=== PATIENT | male | born 1960 | race Caucasian/White ===

== ENCOUNTER 2017-10-05 14:43 | Emergency (ER) | payer OTHER ==
[~2017-10-05] VITALS: Ht 175.3 cm; Wt 108.9 kg
[~2017-10-05 14:43] MED LIST: CYCLOBENZAPRINE10 MG PO; HUMALOG100 UNIT/1 SUB-Q; INSULIN SYRING1 EA11 MISC; LANTUS100 UNITS/ SUB-Q; LISINOPRIL-HCT1 EACH PO; MELOXICAM15 MG PO; METFORMIN HCL500 MG PO; OMEPRAZOLE MAGN20 MG PO; PROSCAR5 MG PO; SIMVASTATIN20 MG PO; TRAMADOL HCL50 MG PO
[2017-10-05] MEDS ORDERED: GUAIFENESIN-COD10 ML PO (16:46)
[2017-10-05] MEDS ORDERED: LEVAQUIN500 MG PO (16:46)
[2017-10-05] MEDS ORDERED: TAMIFLU75 MG PO (16:46)
[2017-10-22] MEDS ORDERED: CYCLOBENZAPRINE10 MG PO (11:58)
[2017-10-22] MEDS ORDERED: NEURONTIN300 MG PO (12:01)
== END 2017-10-05 17:00 | disposition home or self-care (01) ==
LOC: ED 14:43
DX: J11.1 Influenza due to unidentified influenza virus with other respiratory manifestations (principal); E11.9 Type 2 diabetes mellitus without complications; I10 Essential (primary) hypertension; Z79.4 Long term (current) use of insulin; Z79.899 Other long term (current) drug therapy
CPT/HCPCS: 71045; 80053; 85025; 87502; 94640; 99283

== ENCOUNTER 2018-05-04 03:32 | Emergency (ER) | payer OTHER ==
[~2018-05-04] VITALS: Ht 175.3 cm; Wt 110.7 kg
--- NOTE | ~2018-05-04 | EKG ---
[facility] [address] [facility] [place], [place] [address] Draft EK completed, results pending confirmation PATIENT NAME: MARIELTRAVISTERESSA WILLIAMSON Electrocardiogram DATE OF : 58 PHYSICIAN: PRELIMINARY REPORT #: [id number] REPORT IS CONFIDENTIAL AND NOT TO BE RELEASED WITHOUT AUTHORIZATION
--- NOTE | ~2018-05-04 | EKG ---
[facility] [address] [facility] [place], [place] [address] Draft EK completed, results pending confirmation PATIENT NAME: MARIELTRAVISTERESSA WILLIAMSON Electrocardiogram DATE OF : 58 PHYSICIAN: PRELIMINARY REPORT #: [id number] REPORT IS CONFIDENTIAL AND NOT TO BE RELEASED WITHOUT AUTHORIZATION
--- OUTSIDE RECORDS SUMMARY | ~2018-05-04 | XMS | Clinical Summary ---
Demographics + + + | Address | [address] | | | [place] [address] | + + + | Home Phone | | + + + | Preferred Language | Unknown | + + + | Marital Status | Single | + + + | Church Affiliation | CHR | + + + | Race | White | + + + | Ethnic Group | Not or | + + + Author + + + | Author | NON REVENUE LOCATIONS | + + + | Organization | NON REVENUE LOCATIONS | + + + | Address | Unknown | + + + | Phone | Unavailable | + + + Support + + +---------+ + | Name | Relationship | Address | Phone | + + +---------+ + | GRETA IRELAND | ECON | Unknown | | + + +---------+ + Care Team Providers + +------+ + | Care Dental Specialist Name | Role | Phone | + +------+ + | Chery Carrion PA-C | PP | | + +------+ + Source Comments ADDY is fully live on both [facility] Ambulatory and [facility] InPatient.[facility] Allergies + + + + + + | Active Allergy | Reactions | Severity | Noted | Comments | | | | | Date | | + + + + + + | Latex | Dermatitis | | 01/22/20 | | | | | | 18 | | + + + + + + Current Medications + + + +---------+------+------+-------+ | Prescription | Sig. | Disp. | Refills | Star | End | Statu | | | | | | t | Date | s | | | | | | Date | | | + + + +---------+------+------+-------+ | acetaminophen 500 | Take 2 tablets by | | | 05/0 | | Activ | | mg oral tablet | mouth three times | | | 8/20 | | e | | | daily. | | | 18 | | | + + + +---------+------+------+-------+ | bisacodyl 10 mg | Unwrap and insert 1 | 12 | 0 | 05/0 | | Activ | | rectal suppository | suppository rectally | supposito | | 8/20 | | e | | | once daily as | ry | | 18 | | | | | needed (2nd line for | | | | | | | | no BM in past 2 | | | | | | | | days or if no | | | | | | | | response to MIRALAX | | | | | | | | or if patient unable | | | | | | | | to tolerate oral). | | | | | | + + + +---------+------+------+-------+ | cyclobenzaprine 5 | Take 1 tablet by | 24 | 0 | 05/0 | | Activ | | mg oral tablet | mouth every eight | tablet | | 8/20 | | e | | | hours as needed for | | | 18 | | | | | muscle spasms. Do | | | | | | | | not use longer than | | | | | | | | 2-3 weeks. | | | | | | + + + +---------+------+------+-------+ | gabapentin 400 mg | Take 2 capsules by | 130 | 0 | 05/0 | | Activ | | oral capsule | mouth three times | capsule | | 8/20 | | e | | | daily. | | | 18 | | | + + + +---------+------+------+-------+ | | Take 1 tablet by | 30 | 0 | 05/0 | | Activ | | hydroCHLOROthiazide | mouth once daily. | tablet | | 8/20 | | e | | 25 mg oral | Indications: | | | 18 | | | | tabletIndications: | hypertension | | | | | | | hypertension | | | | | | | + + + +---------+------+------+-------+ | insulin lispro 100 | Inject 1-16 Units | 10 mL | 0 | 05/0 | | Activ | | unit/mL | under the skin | | | 8/20 | | e | | subcutaneous | (SUBC) four times | | | 18 | | | | solution | daily. Mealtime | | | | | | | | Correction | | | | | | | | Dose:CBG-->CORRECTIO | | | | | | | | N<70--->Follow | | | | | | | | hypoglycemia | | | | | | | | protocol.71-140--->N | | | | | | | | o | | | | | | | | Correction.141-200-- | | | | | | | | ->4 | | | | | | | | units;201-250--->6 | | | | | | | | units;251-300--->10 | | | | | | | | units;301-350--->12 | | | | | | | | units;351-400--->16 | | | | | | | | units;>400--->Call | | | | | | | | MD. | | | | | | + + + +---------+------+------+-------+ | senna-docusate | Take 1 tablet by | | | 05/0 | | Activ | | 8.6-50 mg oral | mouth two times | | | 8/20 | | e | | tablet | daily. | | | 18 | | | + + + +---------+------+------+-------+ | oxyCODONE | Take 1-3 tablets by | 150 | 0 | 05/0 | | Activ | | (immediate release) | mouth every three | tablet | | 8/20 | | e | | 5 mg oral tablet | hours as needed for | | | 18 | | | | | moderate pain. | | | | | | + + + +---------+------+------+-------+ | polyethylene | Mix 1 packet and | 14 | 0 | 05/0 | | Activ | | glycol 17 gram oral | take orally once | packet | | 8/20 | | e | | powder in packet | daily as needed (1st | | | 18 | | | | | line - for no BM | | | | | | | | for 2 days). | | | | | | + + + +---------+------+------+-------+ | insulin glargine | Inject 30 Units | 10 mL | 0 | 05/0 | | Activ | | (LANTUS U-100 | under the skin | | | 8/20 | | e | | INSULIN) 100 unit/mL | (SUBC) two times | | | 18 | | | | subcutaneous | daily. Indications: | | | | | | | solutionIndications: | type 2 diabetes | | | | | | | type 2 diabetes | mellitus | | | | | | | mellitus | | | | | | | + + + +---------+------+------+-------+ Active Problems + + + | Problem | Noted Date | + + + | Closed right hip fracture (HCC) | 01/19/2018 | + + + | Closed fracture of right hip, initial encounter (HCC) | 01/19/2018 | + + + | Knee dislocation | 12/23/2007 | + + + | Wound infection | 10/17/2007 | + + + Family History + + +------+ + | Medical History | Relation | Name | Comments | + + +------+ + | Diabetes | Father | | | + + +------+ + | Diabetes | Mother | | | + + +------+ + + +------+ + + | Relation | Name | Status | Comments | + +------+ + + | Father | | | | + +------+ + + | Mother | | | | + +------+ + + Social History + +-------+ +--------+ + | Tobacco Use | Types | Packs/Day | Years | Date | | | | | Used | | + +-------+ +--------+ + | Former Smoker | | | | Quit: 11/27/1985 | + +-------+ +--------+ + + + +---------+ + | Alcohol Use | Drinks/We | oz/Week | Comments | | | ek | | | + + +---------+ + | No | | | | + + +---------+ + + + + | Sex Assigned at | Date Recorded | | | | + + + | Not on file | | + + + Last Filed Vital Signs + + + + | Vital Sign | Reading | Time Taken | + + + + | Blood Pressure | 151/88 | 01/25/2018 7:36 AM PDT | + + + + | Pulse | 82 | 01/25/2018 7:36 AM PDT | + + + + | Temperature | 37 C (98.6 F) | 01/25/2018 7:36 AM PDT | + + + + | Respiratory Rate | 18 | 01/25/2018 7:36 AM PDT | + + + + | Oxygen Saturation | 93% | 01/25/2018 7:36 AM PDT | + + + + | Inhaled Oxygen | - | - | | Concentration | | | + + + + | Weight | 107.5 kg (237 lb) | 01/22/2018 3:54 PM PDT | + + + + | Height | 172.7 cm (5' 8") | 01/22/2018 3:54 PM PDT | + + + + | Body Mass Index | 36.04 | 01/22/2018 3:54 PM PDT | + + + + Plan of Treatment + + + + + | Health Maintenance | Due Date | Last Done | Comments | + + + + + | INFLUENZA VACCINE | | 07/22/2016, 06/27/2015, | | | (FLU SHOT) | 8 | 07/16/2014, Additional history | | | | | exists | | + + + + + Implants + +------+--------+ +--------+--------+--------+ | Implanted | Type | Area | Manufacture | Device | Expira | Model | | | | | r | | tion | / | | | | | | Identi | Date | Serial | | | | | | fier | | / Lot | + +------+--------+ +--------+--------+--------+ | Cement Bone Palacos Lv+G | | Right: | JACK | | 01/17/ | [id number] | | Gentamicin 40gm Green - | | Hip | | | 2020 | 04964 | | [id number]: Qty: 1 on | | | | | | / | | 01/20/2018 by Ryne Moreland | | | | | | /[id number] | | MD Corin | | | | | | 599 | + +------+--------+ +--------+--------+--------+ | Cement Bone Palacos R+G | | Right: | JACK | | 09/19/ | [id number] | | Gentamicin 40gm Green - | | Hip | | | 2020 | 17114 | | [id number]: Qty: 1 on | | | | | | / | | 01/20/2018 by Ryne Moreland | | | | | | /[id number] | | MD Corin | | | | | | 783 | + +------+--------+ +--------+--------+--------+ | Bioprep Bone Preparation | | Right: | LAI | | 10/21/ | [id number] | | KitImplanted: Qty: 1 on | | Hip | | | 2021 | 3011 / | | 01/20/2018 by Ryne Moreland | | | | | | / | | MD Corin | | | | | | | + +------+--------+ +--------+--------+--------+ | Stem Femoral 11mm Lateralize | | Right: | BIOMET | | 03/03/ | 12-151 | | Echo Fx Cocr Offset Hip - | | Hip | | | 2025 | 411 / | | [id number]: Qty: 1 on | | | | | | /[id number] | | 01/20/2018 by Ryne Moreland | | | | | | 0 | | MD Corin | | | | | | | + +------+--------+ +--------+--------+--------+ | Centralizer Stem 13mm | | Right: | BIOMET | | 10/05/ | [id number] | | Generation 4 Echo Answer Hip | | Hip | | | 2027 | / | | Distal Pmma Positioner - | | | | | | /[id number] | | [id number]: Qty: 1 on | | | | | | 0 | | 01/20/2018 by Ryne Moreland | | | | | | | | MD Corin | | | | | | | + +------+--------+ +--------+--------+--------+ | Head Unipolar 49mm Bio-Chisholm | | Right: | BIOMET | | 11/13/ | 12-139 | | Ii Endo Ii Hip Acetabulum | | Hip | | | 2025 | 022 / | | Cocrmo Modular Endoprosthesis | | | | | | /[id number] | | - [id number]: Qty: 1 | | | | | | 0 | | on 01/20/2018 by Aniceto | | | | | | | | Ryne Coombs MD | | | | | | | + +------+--------+ +--------+--------+--------+ | Insert Acetabular Standard | | Right: | BIOMET | | 12/10/ | [id number] | | Hip Tapered Endo Ii - | | Hip | | | 2027 | / | | [id number]: Qty: 1 on | | | | | | /[id number] | | 01/20/2018 by Ryne Moreland | | | | | | 0 | | MD Corin | | | | | | | + +------+--------+ +--------+--------+--------+ Results Not on filefrom Last 3 Months Insurance + +--------+ +--------+-------+---------+ | Payer | Benefi | Subscriber | Type | Phone | Address | | | t Plan | ID | | | | | | / | | | | | | | Group | | | | | + +--------+ +--------+-------+---------+ | SALES ACCOUNT LEADER MEDICAID | SALES ACCOUNT LEADER | xxxxxxxx | Medica | | | | | [place] | | id | | | | | [place] | | | | | + +--------+ +--------+-------+---------+ | AUTO INS OTHER | AUTO | xxx | Auto | | | | | INS | | | | | | | OTHER | | | | | + +--------+ +--------+-------+---------+ | [place] | xxxxxxx | Agency | | | | | | | | | | | | DEPART | | | | | | | MENT | | | | | | | OF | | | | | | | CORREC | | | | | | | TIONS | | | | | + +--------+ +--------+-------+---------+ + +--------+ +--------+ + + | Guarantor Name | Accoun | Relation to | Date | Phone | Billing Address | | | t Type | Patient | of | | | | | | | | | | + +--------+ +--------+ + + | TRAVIS FLOYD | Person | Self | [birth year] | Home: | [address] | | | al/Fam | | 1959 | +- | [place] [address] | | | robi | | | [phone] | | + +--------+ +--------+ + + | TRAVIS FLOYD | Third | Self | [birth year] | Home: | [address] | | | [place] | | 1959 | +- | [place] [address] | | | Liabil | | | [phone] | | | | ity | | | | | + +--------+ +--------+ + +
--- OUTSIDE RECORDS SUMMARY | ~2018-05-04 | XMS | Clinical Summary ---
Demographics + + + | Address | [address] | | | [place] [address] | + + + | Home Phone | | + + + | Preferred Language | Unknown | + + + | Marital Status | Single | + + + | Buddhism Affiliation | Unknown | + + + | Race | Unknown | + + + | Ethnic Group | Unknown | + + + Author + + + | Author | [facility] | | | and [place] | + + + | Organization | [facility] | | | and [place] | + + + | Address | Unknown | + + + | Phone | Unavailable | + + + Support + + + + + | Name | Relationship | Address | Phone | + + + + + | Jaylan Olivas | ECON | [address] | | | | | [place] | | | | | [address] | | + + + + + Care Team Providers + +------+ + | Care Aquatics Director Name | Role | Phone | + +------+ + | Unknown, Doctor | PP | | + +------+ + Allergies Not on File Current Medications Not on file Active Problems Not on file Social History + +-------+ +--------+------+ | Tobacco [...] on file | | + + + Plan of Treatment + + + + + | Health Maintenance | Due Date | Last Done | Comments | + + + + + | Hepatitis C | | | | | Screening | 9 | | | + + + + + | Vaccine: | | | | | Dtap/Tdap/Td (1 - | 8 | | | | Tdap) | | | | + + + + + | Colorectal Cancer | | | | | Screening | 9 | | | | (Colonoscopy) | | | | + + + + + | Vaccine: Influenza | | | | | (#1) | 8 | | | + + + + + Results Not on filefrom Last 3 Months Insurance + +--------+ +--------+ +---------+ | Payer | Benefi | Subscriber | Type | Phone | Address | | | t Plan | ID | | | | | | / | | | | | | | Group | | | | | + +--------+ +--------+ +---------+ | [employer] | MODA | [id number] | Medica | [phone] | | | MEDICAID HMO | HEALTH | | id | [phone] | | | | MDCD | | | | | | | [place]MO [place] | | | | | + +--------+ +--------+ +---------+ + +--------+ +--------+ + + | Guarantor Name | Accoun | Relation to | Date | Phone | Billing Address | | | t Type | Patient | of | | | | | | | | | | + +--------+ +--------+ + + | TRAVIS FLOYD | Person | Self | [birth year] | Home: | [address] | | | [address]am | | [phone] | [place] [address] | | | robi | | | [phone] | | + +--------+ +--------+ + +"
--- OUTSIDE RECORDS SUMMARY | ~2018-05-04 | XMS | Clinical Summary ---
Demographics + + + | Address | [address] | | | [place] [address] | + + + | Home Phone | | + + + | Preferred Language | Unknown | + + + | Marital Status | Single | + + + | Mormon Affiliation | Unknown | + + + | Race | Unknown | + + + | Ethnic Group | Unknown | + + + Author + + + | Author | [facility] | | | and [place] | + + + | Organization | [facility] | | | and [place] | [...] [place] | | | | | [address] | | + + + + + Care Team Providers + +------+ + | Care Screw Machine Setter Name | Role | Phone | + [...] | [employer] | MODA | [id number] | Medica | [phone] | | | MEDICAID HMO | HEALTH [...] | [phone] | [place] [address] | | | robi | | | [phone] | | + +--------+ +--------+ + +"
--- OUTSIDE RECORDS SUMMARY | ~2018-05-04 | XMS | Clinical Summary ---
Demographics + + + | Address | [address] | | | [place] [address] | + + + | Home Phone | | + + + | Preferred Language | Unknown | + + + | Marital Status | Single | + + + | Pentecostalism Affiliation | CHR | + + + [...] Team Providers + +------+ + | Care Automotive Brake Specialist Name | Role | Phone | + +------+ + | Chery Carrion PA-C | PP | | + +------+ + Source Comments ADDY is fully live on both [facility] Ambulatory and [facility] InPatient.[facility] Allergies + + + + + [...] Right: | JACK | | 01/17/ | [id number] | | Gentamicin 40gm Green - | | Hip | | | 2020 | 85189 | | [id number]: Qty: 1 on | | | | | | / | | 01/20/2018 by Ryne Moreland | | | | | | /[id number] | | MD Corin | | | | | | 599 | + +------+--------+ +--------+--------+--------+ | Cement Bone Palacos R+G | | Right: | JACK | | 09/19/ | [id number] | | Gentamicin 40gm Green - | | Hip | | | 2020 | 84463 | | [id number]: Qty: 1 on | | | | | | / | | 01/20/2018 by Ryne Moreland | | | | | | /[id number] | | MD Corin | | | | | | 783 | + +------+--------+ +--------+--------+--------+ | Bioprep Bone Preparation | | Right: | LAI | | 10/21/ | [id number] | | KitImplanted: Qty: 1 on | [...] | 2025 | 411 / | | [id number]: Qty: 1 on | | | | | | /[id number] | | 01/20/2018 by Ryne Moreland | | | | | | 0 | | MD Corin | | | | | | | + +------+--------+ +--------+--------+--------+ | Centralizer Stem 13mm | | Right: | BIOMET | | 10/05/ | [id number] | | Generation 4 Echo Answer Hip | | Hip | | | 2027 | / | | Distal Pmma Positioner - | | | | | | /[id number] | | [id number]: Qty: 1 on | | | | [...] Endoprosthesis | | | | | | /94543 | | - [id number]: Qty: 1 | | | | | | 0 | | on 01/20/2018 by Aniceto | | | | | | | | Ryne Coombs MD | | | | | | | + +------+--------+ +--------+--------+--------+ | Insert Acetabular Standard | | Right: | BIOMET | | 12/10/ | [id number] | | Hip Tapered Endo Ii - | | Hip | | | 2027 | / | | [id number]: Qty: 1 on | | | | | | /[id number] | | 01/20/2018 by Ryne Moreland | [...] | | | + +--------+ +--------+-------+---------+ | ANIMAL PATHOLOGY TEACHER MEDICAID | ANIMAL PATHOLOGY TEACHER | xxxxxxxx | Medica | | | [...] + +--------+ +--------+-------+---------+ | [place] | [place] | xxxxxxx | Agency | [...] 1959 | +- | [place] [address] | | | robi | | | [address] | | + +--------+ +--------+ + + | TRAVIS FLOYD | Third | Self | [birth year] | Home: | [address] | | | [place] | | 1959 | +- | [place] [address] | | | Liabil | | | [address] | | | | ity | | | | | + +--------+ +--------+ + +
[~2018-05-04 03:32] MED LIST changes: +GUAIFENESIN-COD10 ML PO; +LEVAQUIN500 MG PO; +NEURONTIN300 MG PO; +TAMIFLU75 MG PO
--- NOTE | 2018-05-04 06:27 | EKG ---
[facility] [address] [facility] [place] [address] Signed Sinus tachycardia Possible Left atrial enlargement Left axis deviation Pulmonary disease pattern Inferior infarct (cited on or before 04-MAY-2018) Abnormal ECG When compared with ECG of 04-MAY-2018 04:10, (Unconfirmed) No significant change was found Confirmed by MARY BAKER MD ([id number]) on 05/04/2018 6:27:20 AM Electronically Signed By: MARY BAKER MD 05/04/18 0627 PATIENT NAME: TRAVIS FLOYD Electrocardiogram DATE OF : 58 PHYSICIAN: MARY BAKER MD REPORT #: [id number] REPORT IS CONFIDENTIAL AND NOT TO BE RELEASED WITHOUT AUTHORIZATION
== END 2018-05-04 08:50 | disposition short-term general hospital (02) ==
LOC: ED 03:32
PROC: 0T9B70Z Drainage of Bladder with Drainage Device, Via Natural or Artificial Opening (ICD-10-PCS; principal; 2018-05-04)
PROC: 4A0D7LZ Measurement of Urinary Volume, Via Natural or Artificial Opening (ICD-10-PCS; 2018-05-04)
DX: T38.3X2A Poisoning by insulin and oral hypoglycemic [antidiabetic] drugs, intentional self-harm, initial encounter (principal); E11.649 Type 2 diabetes mellitus with hypoglycemia without coma; E87.6 Hypokalemia; E11.9 Type 2 diabetes mellitus without complications; I10 Essential (primary) hypertension; F17.200 Nicotine dependence, unspecified, uncomplicated; Z79.899 Other long term (current) drug therapy; Z79.4 Long term (current) use of insulin
CPT/HCPCS: 51701; 51798; 71045; 80053; 80176; 81001; 82010; 84439; 84443; 84484; 85025; 93005; 93010; 96361; 96374; 99285; G0480

== ENCOUNTER 2019-12-17 08:24 | Emergency (ER) | payer OTHER ==
[~2019-12-17] VITALS: Ht 175.3 cm; Wt 110.7 kg
[~2019-12-17 08:24] MED LIST changes: +AMIODARONE HCL200 MG PO; +AMOXICILLIN500 MG PO; +ASPIR-LOW81 MG PO; +ATORVASTATIN CA40 MG PO; +DULOXETINE HCL60 MG PO; +FERROUS FUMARA324 MG PO; +FLOMAX0.4 MG PO; +FUROSEMIDE40 MG PO; +JANUVIA50 MG PO; +K-TAB ER20 MEQ PO; +METOPROLOL TART25 MG PO
--- OUTSIDE RECORDS SUMMARY | 2019-12-17 08:26 | XMS ---
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 E.D. VISIT COUNT (12 MO.) 1 PENNY Cramer TOTAL 1 NOTE: Visits indicate total known visits. ED/UCC VISIT TRACKING (12 MO.) 12/17/2019 08:24 [facility] [place] TYPE: Emergency COMPLAINT: - FLU SYMPTOMS INPATIENT VISIT TRACKING (12 MO.) No inpatient visits to display in this time frame [email or web address]
[2019-12-17] MEDS ORDERED: ULTRAM50 MG PO (10:03)
[2019-12-17] MEDS ORDERED: ONDANSETRON ODT8 MG PO (10:03)
== END 2019-12-17 11:16 | disposition home or self-care (01) ==
LOC: ED 08:24
DX: K52.9 Noninfective gastroenteritis and colitis, unspecified (principal); I10 Essential (primary) hypertension; E11.9 Type 2 diabetes mellitus without complications; Z90.89 Acquired absence of other organs; Z79.82 Long term (current) use of aspirin; Z79.899 Other long term (current) drug therapy
CPT/HCPCS: 80053; 85025; 96361; 96374; 99283-25; J2405; J7030

== ENCOUNTER 2020-04-08 16:20 | Emergency (ER) | payer OTHER ==
[~2020-04-08] VITALS: Ht 175.3 cm; Wt 102.1 kg
--- OUTSIDE RECORDS SUMMARY | ~2020-04-08 | XMS | Encounter Summary ---
Demographics + + + | Address | [address] | | | [place] [address] | + + + | Home Phone | | + + + | Preferred Language | Unknown | + + + | Marital Status | Single | + + + | Quaker Affiliation | CHR | + + + | Race | White | + + + | Ethnic Group | Not or | + + + Author + + + | Author | [facility] | + + + | Organization | [facility] | + + + | Address | Unknown | + + + | Phone | Unavailable | + + + Support + + +---------+ + | Name | Relationship | Address | Phone | + + +---------+ + | Kaycee Ferraro | ECON | Unknown | | + + +---------+ + Care Team Providers + +------+ + | Care Associate Loan Officer Name | Role | Phone | + +------+ + | Chery Carrion PA-C | PCP | | + +------+ + Encounter Details +--------+ + + + + | Date | Type | Department | Care Team | Description | +--------+ + + + + | 12/22/ | Ancillary | Registration [address] | [address], | | | 2007 | [address] | [address] | [address] | | | | [address] | [address] Mailcode: [id number] | [address] | | | | | [place], [place] | [place], [place] | | | | | [address] | [address] | | | | | [phone] | [phone] | | | | | | | | +--------+ + + + + Social History + +-------+ +--------+------+ | Tobacco Use | Types | Packs/Day | Years | Date | | | | | Used | | + +-------+ +--------+------+ | Never Assessed | | | | | + +-------+ +--------+------+ + + + | Sex Assigned at | Date Recorded | | | | + + + | Not on file | | + + + + + + + | Job Start Date | Occupation | Industry | + + + + | Not on file | Not on file | Not on file | + + + + + + + + | Travel History | Travel Start | Travel End | + + + + + + | No recent travel history available. | + + documented as of this encounter Plan of Treatment Not on filedocumented as of this encounter Visit Diagnoses Not on filedocumented in this encounter"
--- OUTSIDE RECORDS SUMMARY | ~2020-04-08 | XMS | Encounter Summary ---
Demographics + + + | Address | [address] | | | [place] [address] | + + + | Home Phone | | + + + | Preferred Language | Unknown | + + + | Marital Status | Single | + + + | Restoration Affiliation | CHR | + + + | Race | White | + + + | Ethnic Group | Not or | + + + Author + + + | Organization | Unknown | + + + | Address | Unknown | + + + | Phone | Unavailable | + + + Support + + +---------+ + | Name | Relationship | Address | Phone | + + +---------+ + | Kaycee Ferraro | ECON | Unknown | | + + +---------+ + Care Team Providers + +------+ + | Care Safety Representative Name | Role | Phone | + +------+ + PCP | Unavailable | + +------+ + Encounter Details +--------+ + + + + | Date | Type | Department | Care Team | Description | +--------+ + + + + | 10/05/ | Discharge | | Robert Garza, | D/C Summary ODDS | | 2008 | Summary-Tra | | MD | | | | nscribed | | | | +--------+ + + [...] + + documented as of this encounter Discharge Summaries Robert Garza - 12/27/2007 4:43 PM PDT [id number] MARIEL ROBLES [id number] Admission Date: 10/01/2007 Discharge Date: 10/05/2007 Staff Physician: Randall Esparza M.D. Principal Final Diagnosis: Left knee dislocation. Additional Diagnoses: Diabetes, hypertension, and hypercholesterolemia. Principal Procedure: External fixation, left knee. Reason for Admission: Mr. Cerda is a 47-year-old obese gentleman with diabetes who has been incarcerated approximately 24 years. He fell over wheelbarrow and sustained a left knee dislocation. This was reduced in [facility] on 09/26/07. By report, he had a postreduction angiogram that was negative. He was then placed in knee immobilizer and transferred to [facility], and accepted by Dr. Wagner on 09/21/07. Hospital Course: The patient was admitted on 10/01/07. Consultation was obtained by Dr. Randall Esparza. MRI was reviewed, and it was felt that the best treatment for his injury would be closed treatment of his posterolateral corner with delayed treatment of his anterior cruciate and posterior cruciate ligaments. He was therefore placed in external fixator on 10/04/07. On 10/05/07, he was discharged back to his detention facility in good condition. Discharge Medication(s): 1. Lisinopril 5 mg p.o. daily. 2. Lipitor 10 mg p.o. nightly. 3. Neurontin 400 mg p.o. t.i.d. 4. Hydrochlorothiazide 12.5 mg p.o. daily. 5. Metoprolol 50 mg p.o. b.i.d. 6. Lovenox 40 mg subcutaneous daily x1 month. 7. Oxycodone 5 mg to 20 mg p.o. q.3 h. p.r.n. pain. 8. NPH insulin 24 units subcutaneous q.p.m. 9. NPH 34 units subcutaneous q.a.m. 10. Regular insulin 10 units subcutaneous q. 5 p.m., 14 units subcutaneous q.a.m. 11. Ritalin 10 mg p.o. nightly, 40 mg p.o. q.a.m., and 40 mg p.o. q. 12 p.m. 12. Senna-S 2 tablets p.o. b.i.d. 13. Multivitamin 1 tablet p.o. daily. Discharge Instruction(s): Diet is diabetic. Weight bear is nonweightbearing on the left leg. Instructions: He is to have his Schultz to gravity. He can discontinue this when he is out of bed. He will have daily ex-fix pin site care with one-half strength hydrogen peroxide. He has a dorsiflexion boot on the left lower extremity for a peroneal nerve palsy. This should be on 4 hours at least per 8 hours. Followup: Dr. Randall Esparza in 2 weeks. Robert Garza M.D. Randall Esparza M.D. PD / [id number] / [id number] / [id number] / [id number] Reviewed or Edited By Robert Garza MD on 10-17-2007 Electronically signed by Randall Esparza 12-27-2007 04:42:52 PM documented in this en counter Plan of Treatment Not on filedocumented as of this encounter Visit Diagnoses Not on filedocumented in this encounter"
--- OUTSIDE RECORDS SUMMARY | ~2020-04-08 | XMS | Encounter Summary ---
Demographics + + + | Address | [address] | | | [place] [address] | + + + | Home Phone | | + + + | Preferred Language | Unknown | + + + | Marital Status | Single | + + + | Yazdanism Affiliation | CHR | + + + | Race | White | + + + | Ethnic Group | Not or | + + + Author + + + | Author | [facility] | + + + | Organization | [facility] | + + + | Address | Unknown | + + + | Phone | Unavailable | + + + Support + + +---------+ + | Name | Relationship | Address | Phone | + + +---------+ + | Kaycee Ferraro | ECON | Unknown | | + + +---------+ + Care Team Providers + +------+ + | Care Pocket Marker Name | Role | Phone | + +------+ + PCP | Unavailable | + +------+ + Reason for Visit + + + | Reason | Comments | + + + | Pre-op evaluation | | + + + Encounter Details +--------+---------+ + + + | Date | Type | Department | Care Team | Description | +--------+---------+ + + + | 12/22/ | Office | Orthopaedics | Randall Esparza, | Knee Dislocation | | 2007 | Visit | [facility] | [address] | (Primary Dx) | | | | for Health and | [address] | | | | | Healing [address] | [place], [place] | | | | | [facility] | [address] | | | | | Health and Healing, | [phone] | | | | | [facility] | | | | | | Floor [facility] [place] | | | | | | [address] | | | | | | [phone] | | | +--------+---------+ + + + Social History + +-------+ [...] + + documented as of this encounter Patient Instructions Patient Instructions Deandra Ceballos - 12/19/2007 4:26 PM PDTRegistration Locations (pleas e check in at one of the following registration desks prior to surgery) For surgeries scheduled to take place on the newberry at the [facility]: Surgeries scheduled in the [facility] ([address] [place] [address]): registration is located on the 4th floor of [facility] (Day Surgery). Surgeries scheduled in the [facility]: registration is located on the 9th floor. Surgeries scheduled in [facility]: registration is located on the 6th floor. Surgeries scheduled in the [facility]: registration is located i n the [facility] lobby on the first floor. For surgeries scheduled to take place at the [facility]: registration is l ocated on the 4th floor (Surgery Center). Registration Process for all Admissions/Surgeries Please bring your insurance card(s) with you and be prepared to pay any co-payment, co-insu niranjan or deposit that may be required. Once you arrive at the registration desk, you will be interviewed by a Patient Access Servi ce Specialist (LUIS M). Demographics will be verified (example: name, date of , Social Se curity Number, address, insurance). You will be asked to sign some paperwork: Terms and Conditions of Service, Notice of Privac y Practices Acknowledgement and Genetic Testing Opt Out. You will be given some paperwork: copies of any forms signed by you, Patient Rights, Respon sibilities and Safety, Understanding Advance Directives, and Smoking Cessation Brochure. documented in this encounter Progress Randall Saucedo - 12/23/2007 11:44 AM Sonia Cerda is a 47 y.o. male here for preop e kennedi. The surgical plan, risks, benefits, expected postoperative course, and requires rehabil itation are reviewed. The patient understands and wishes to proceed. Informed consent is obt ained. documented in this encou nter Plan of Treatment Not on filedocumented as of this encounter Visit Diagnoses + + | Diagnosis | + + | Knee dislocation - Primary Closed dislocation of knee, unspecified part | + + documented in this encounter"
--- OUTSIDE RECORDS SUMMARY | ~2020-04-08 | XMS | Encounter Summary ---
Demographics + + + | Address | [address] | | | [place] [address] | + + + | Home Phone | | + + + | Preferred Language | Unknown | + + + | Marital Status | Single | + + + | Jew Affiliation | CHR | + + + | Race | White | + + + | Ethnic Group | Not or | + + + Author + + + | Author | [facility] | + + + | Organization | [facility] | + + + | Address | Unknown | + + + | Phone | Unavailable | + + + Support + + +---------+ + | Name | Relationship | Address | Phone | + + +---------+ + | Kaycee Ferraro | ECON | Unknown | | + + +---------+ + Care Team Providers + +------+ + | Care Cloth Measurer Machine Name | Role | Phone | + +------+ + | No Pcp Per Patient | PCP | Unavailable | + +------+ + Encounter Details +--------+ + + + + | Date | Type | Department | Care Team | Description | +--------+ + + + + | 10/05/ | Documentati | Anesthesiology | Unknown . | | | 2007 | on | [address] | | | | | | [place], | | | | | | [place] [address] | | | +--------+ + + + [...] Not on filedocumented as of this encounter Procedures + +--------+ + + + | Procedure Name | Priori | Date/Time | Associated Diagnosis | Comments | | | ty | | | | + +--------+ + + + | ANESTHESIA/SEDATION | | 10/05/2007 | | Results for this | | | | 9:21 AM | | procedure are in the | | | | PST | | results section. | + +--------+ + + + documented in this encounter Results ANESTHESIA/SEDATION (10/05/2007 9:21 AM PST) + + + | Narrative | Performed At | + + + | Ordered by an unspecified provider. | | + + + + + | Transcriptions | + + | 10/05/2007 9:21 AM [facility] Anesthesia PostOp Report | | | | Patient: TRAVIS FLOYD [facility] Rec: [id number] Sex M Bdate: 1960 | | Date/Time Data | | Entered Into [facility] | | Anesth PostOp | | Surgery Date [id number] 10/05/07 09:21 | | Anesthesiologist NAKITA PEDRAZA 10/05/07 09:21 | | Resident Anesthesiolog ERNA HERNANDEZ 10/05/07 09:21 | | | + + documented in this encounter Visit Diagnoses Not on filedocumented in this encounter"
--- OUTSIDE RECORDS SUMMARY | ~2020-04-08 | XMS | Encounter Summary ---
Demographics + + + | Address | [address] | | | [place] [address] | + + + | Home Phone | | + + + | Preferred Language | Unknown | + + + | Marital Status | Single | + + + | Spiritism Affiliation | CHR | + + + | Race | White | + + + | Ethnic Group | Not or | + + + Author + + + | Author | [facility] | + + + | Organization | [facility] | + + + | Address | Unknown | + + + | Phone | Unavailable | + + + Support + + +---------+ + | Name | Relationship | Address | Phone | + + +---------+ + | Kaycee Ferraro | ECON | Unknown | | + + +---------+ + Care Team Providers + +------+ + | Care Plexiglas Former Name | Role | Phone | + +------+ + | No Pcp Per Patient | PCP | Unavailable | + +------+ + Reason for Referral Consultation (Routine) +--------+--------+ + + + + | Status | Reason | Specialty | Diagnoses / | Referred By | Referred To | | | | | Procedures | Contact | Contact | +--------+--------+ + + + + | Closed | | Orthopedics | Diagnoses | Van Hernando, | Taras, | | | | | Knee | Argelia Linn, | Artis Pike MD | | | | | dislocation | PA-C [address] | | | | | Procedures | [address] | [address] | | | | | CONSULT TO | [address] | [address] | | | | | ORTHOPEDICS | Rd | [place] | | | | | AND | [place], [place] | [address] | | | | | REHABILITATI | [address] | Phone: | | | | | ON | | [phone] | | | | | | | Fax: | | | | | | | [phone] | +--------+--------+ + + + + Reason for Visit + + + | Reason | Comments | + + + | Follow-up encounter | | + + + Office Visit - E/M Services (Routine) +--------+--------+ + + + + | Status | Reason | Specialty | Diagnoses / | Referred By | Referred To | | | | | Procedures | Contact | Contact | +--------+--------+ + + + + | Closed | | Orthopedics | | [facility] | | | | | | Epic Dept | [facility] [address] | | [address] | | | | | | | [facility] | | | | | | | Health and | | | | | | | Healing, | | | | | | | [address], | | | | | | | 12th Floor | | | | | | | [place], [place] | | | | | | | [address] | | | | | | | Phone: | | | | | | | [phone] | | | | | | | Fax: | | | | | | | [phone] | +--------+--------+ + + + + Encounter Details +--------+---------+ + + + | Date | Type | Department | Care Team | Description | +--------+---------+ + + + | 10/25/ | Office | Orthopaedics | Argelia Gutierrez | Knee Dislocation | | 2008 | Visit | [facility] | [address] | (Primary Dx) | | | | for Health and | | | | | | Healing [address] | | | | | | Ave [facility] | | | | | | Health and Healing, | | | | | | Building | | | | | | Floor [facility] [place] | | | | | | [address] | | | | | | [phone] | | | +--------+---------+ + + + [...] + + documented as of this encounter Progress Notes Argelia Gutierrez PA-C - 11/21/2008 5:36 PM Aparna Cerda is a 47 y.o. male 10 mon ths s/p left knee ex fix removal and JAYME. He is progressing well in terms of pain although marzena schmid feels a significant sense of instability. When he wears the brace he does fairly well and does not fall. PE: Incisions well healed. ROM 0-110 Persistent LCL laxity A/P: Matilde Ambrose has had several email communciations with this patient. Her recommendation remains referral to Dr. Onofre/Dr. Grajeda for consideration of knee arthroplasty.Electronic ally signed by Argelia Gutierrez PA-C at 11/21/2008 5:36 PM PSTdocumented in this encoun ter Plan of Treatment Not on filedocumented as of this encounter Visit Diagnoses + + | Diagnosis | + + | Knee dislocation - Primary Closed dislocation of knee, unspecified part | + + documented in this encounter"
--- OUTSIDE RECORDS SUMMARY | ~2020-04-08 | XMS | Encounter Summary ---
Demographics + + + | Address | [address] | | | [place] [address] | + + + | Home Phone | | + + + | Preferred Language | Unknown | + + + | Marital Status | Single | + + + | Uatsdin Affiliation | CHR | + + + | Race | White | + + + | Ethnic Group | Not or | + + + Author + + + | Author | [facility] | + + + | Organization | [facility] | + + + | Address | Unknown | + + + | Phone | Unavailable | + + + Support + + +---------+ + | Name | Relationship | Address | Phone | + + +---------+ + | Kaycee Ferraro | ECON | Unknown | | + + +---------+ + Care Team Providers + +------+ + | Care Blood Bank Business Manager Name | Role | Phone | + +------+ + | No Pcp Per Patient | PCP | Unavailable | + +------+ + Encounter Details +--------+ + + + + | Date | Type | Department | Care Team | Description | +--------+ + + + + | 03/08/ | Documentati | Orthopaedics | Argelia Gutierrez | | | 2007 | on | [facility] | [address] | | | | | for Health and | | | | | | Healing [address] | | | | | | [facility] for | | | | | | Health and Healing, | | | | | | Building | | | | | | Floor Center [place], [place] | | | | | | [address] | | | | | | [phone] | | | +--------+ + + + [...]
--- OUTSIDE RECORDS SUMMARY | ~2020-04-08 | XMS | Encounter Summary ---
Demographics + + + | Address | [address] | | | [place] [address] | + + + | Home Phone | | + + + | Preferred Language | Unknown | + + + | Marital Status | Single | + + + | Mormon Affiliation | CHR | + + + | Race | White | + + + | Ethnic Group | Not or | + + + Author + + + | Author | [facility] | + + + | Organization | [facility] | + + + | Address | Unknown | + + + | Phone | Unavailable | + + + Support + + +---------+ + | Name | Relationship | Address | Phone | + + +---------+ + | Kaycee Ferraro | ECON | Unknown | | + + +---------+ + Care Team Providers + +------+ + | Care Avionics System Engineer Name | Role | Phone | + +------+ + | Chery Carrion PA-C | PCP | | + +------+ + Encounter Details +--------+ + + + + | Date | Type | Department | Care Team | Description | +--------+ + + + + | 01/24/ | Document-Sc | Health Information | Other, Faculty | | | 2018 | anned | Services [address] | [phone] | | | | | [address] | | | | | | Mailcode: [id number] | | | | | | [facility] | | | | | | [place], [place] | | | | | | [address] | | | | | | [phone] | | | +--------+ + + + + Social History + +-------+ +--------+ + | Tobacco Use | Types | Packs/Day | Years | Date | | | | | Used | | + +-------+ +--------+ + | Former Smoker | | | | Quit: 11/27/1985 | + +-------+ +--------+ + + + +---------+ + | Alcohol Use | Drinks/Week | oz/Week | Comments | + + +---------+ + | No [...] + + documented as of this encounter Functional Status + + + + | Functional Status | Response | Date of Assessment | + + + + | Because of a physical, mental, or emotional | No | 01/20/2018 | | condition, do you have serious difficulty | | | | doing errands alone such as visiting the | | | | doctor? | | | + + + + + + + + | Cognitive Status | Response | Date of Assessment | + + + + | Because of a physical, mental, or emotional | No | 01/20/2018 | | condition, do you have serious difficulty | | | | concentrating, remembering, or making | | | | decisions? (5 years old or older) | | | + + + + documented as of this encounter Plan of Treatment Not on filedocumented as of this encounter Visit Diagnoses Not on filedocumented in this encounter"
--- OUTSIDE RECORDS SUMMARY | ~2020-04-08 | XMS | Encounter Summary ---
Demographics + + + | Address | [address] | | | [place] [address] | + + + | Home Phone | | + + + | Preferred Language | Unknown | + + + | Marital Status | Single | + + + | Hinduism Affiliation | 1013 | + + + | Race | Unknown | + + + | Ethnic Group | Unknown | + + + Author + + + | Author | [facility] | | | and [place] | + + + | Organization | [facility] | | | and [place] | + + + | Address | Unknown | + + + | Phone | Unavailable | + + + Support + + +---------+ + | Name | Relationship | Address | Phone | + + +---------+ + | Kaycee Ferraro | ECON | Unknown | | + + +---------+ + Care Team Providers + +------+ + | Care Gas Well Drilling Manager Name | Role | Phone | + +------+ + | Chery Carrion | PCP | | + +------+ + Encounter Details +--------+ + + + + | Date | Type | Department | Care Team | Description | +--------+ + + + + | 07/20/ | Orders Only | [facility] | Bindu Thao, | | | 2018 | | [address] | Jean Carlos Richardson MD | | | | | [place], [place] | [address] | | | | | [address] | [place] [address] | | | | | [phone] | [phone] | | | | | | | | +--------+ + + + + Social History + +-------+ +--------+------+ | Tobacco Use | Types | Packs/Day | Years | Date | | | | | Used | | + +-------+ +--------+------+ | Former Smoker | | 1 | | | + +-------+ +--------+------+ + + | Comments: pt not ready, pt anxious and has difficult coping while in hospital | + + + + + | Sex Assigned at | Date Recorded | | | | + + + | Not on file | | + + + documented as of this encounter Plan of Treatment +--------+ + + + + | Date | Type | Specialty | Care Team | Description | +--------+ + + + + | 04/19/ | Appointment | Radiology | | | | 2020 | | | | | +--------+ + + + + | 04/19/ | Appointment | Radiology | | | | 2020 | | | | | +--------+ + + + + | 04/19/ | Appointment | Radiology | | | | 2020 | | | | | +--------+ + + + + documented as of this encounter Procedures + +--------+ + + + | Procedure Name | Priori | Date/Time | Associated Diagnosis | Comments | | | ty | | | | + +--------+ + + + | EXTERNAL LAB: CBC | Routin | 07/20/2018 | | Results for this | | | e | 3:23 PM | | procedure are in the | | | | PDT | | results section. | + +--------+ + + + | SEDIMENTATION RATE, | Routin | 07/20/2018 | | Results for this | | AUTOMATED | e | 3:23 PM | | procedure are in the | | | | PDT | | results section. | + +--------+ + + + | PROTIME INR | Routin | 07/20/2018 | | Results for this | | | e | 3:23 PM | | procedure are in the | | | | PDT | | results section. | + +--------+ + + + | C-REACTIVE PROTEIN | Routin | 07/20/2018 | | Results for this | | | e | 3:23 PM | | procedure are in the | | | | PDT | | results section. | + +--------+ + + + | RENAL FUNCTION PANEL | Routin | 07/20/2018 | | Results for this | | | e | 3:23 PM | | procedure are in the | | | | PDT | | results section. | + +--------+ + + + | COMPREHENSIVE | Routin | 07/20/2018 | | Results for this | | METABOLIC PANEL | e | 3:23 PM | | procedure are in the | | | | PDT | | results section. | + +--------+ + + + documented in this encounter Results Sedimentation rate, automated (07/20/2018 3:23 PM PDT) + +--------+ + + + | Component | Value | Ref Range | Performed | Pathologist | | | | | At | Signature | + +--------+ + + + | Sed Rate | 71 (H) | 0 - 20 mm/h | EXTERNAL | | | | | | LAB | | + +--------+ + + + + + | Specimen | + + | Blood specimen | | (specimen) | + + + +---------+ + + | Performing | Address | City/State/Zipcode | Phone Number | | Organization | | | | + +---------+ + + | EXTERNAL LAB | | | | + +---------+ + + Protime INR (07/20/2018 3:23 PM PDT) + + + + + + | Component | Value | Ref Range | Performed | Pathologist | | | | | At | Signature | + + + + + + | INR | 1.5Comment: REFERENCE | | EXTERNAL | | | | RANGE: 0.9 - 1.2 | | LAB | | | | NON-ANTICOAGULATED 2.0 - | | | | | | 3.0 ALL OTHER | | | | | | THERAPEUTIC INDICATIONS | | | | | | 2.5 - 3.5 MECHANICAL | | | | | | HEART VALVES, RECURRENT | | | | | | OR SYSTEMIC EMBOLISM | | | | + + + + + + + + | Specimen | + + | Blood specimen | | (specimen) | + + + +---------+ + + | Performing | Address | City/State/Zipcode | Phone Number | | Organization | | | | + +---------+ + + | EXTERNAL LAB | | | | + +---------+ + + External Lab: CBC (07/20/2018 3:23 PM PDT) + + + + + + | Component | Value | Ref Range | Performed | Pathologist | | | | | At | Signature | + + + + + + | WBC | 9.65 | 3.80 - 11.00 | EXTERNAL | | | | | 10*3/uL | LAB | | + + + + + + | Non- | 6.92 (H) | 4.20 - 5.70 | EXTERNAL | | | Red Blood | | 10*6/uL | LAB | | | Cells | | | | | | Counted | | | | | + + + + + + | Hemoglobin | 13.0 (L) | 13.2 - 17.0 | EXTERNAL | | | | | g/dL | LAB | | + + + + + + | Hematocrit, | 47.0 | 39.0 - 50.0 % | EXTERNAL | | | POC | | | LAB | | + + + + + + | MCV | 67.9 (L) | 80.0 - 100.0 fL | EXTERNAL | | | | | | LAB | | + + + + + + | MCH | 18.7 (L) | 27.0 - 34.0 pg | EXTERNAL | | | | | | LAB | | + + + + + + | MCHC | 27.6 (L) | 32.0 - 35.5 | EXTERNAL | | | | | g/dL | LAB | | + + + + + + | RDW-CV | 48.1 | 37 - 53 fL | EXTERNAL | | | | | | LAB | | + + + + + + | Platelet | 217Comment: SLIDE | 150 - 400 | EXTERNAL | | | Count | SCANNED, AGREES WITH | 10*3/uL | LAB | | | Plasma | AUTOMATED RESULTS. | | | | + + + + + + | MPV | 9.8Comment: | fL | EXTERNAL | | | | | | LAB | | + + + + + + | Differentia | AUTOMATED | | EXTERNAL | | | l Type | | | LAB | | + + + + + + | % Segmented | 64.65 | % | EXTERNAL | | | | | | LAB | | | Neutrophils | | | | | + + + + + + | % | 24.31 | % | EXTERNAL | | | Lymphocytes | | | LAB | | + + + + + + | % Monocytes | 8.24 | % | EXTERNAL | | | | | | LAB | | + + + + + + | % | 2.15 | % | EXTERNAL | | | Eosinophils | | | LAB | | + + + + + + | % Basophils | 0.65 | % | EXTERNAL | | | | | | LAB | | + + + + + + | Absolute | 6.24 | 1.90 - 7.40 | EXTERNAL | | | Segmented | | 10*3/uL | LAB | | | Neutrophils | | | | | + + + + + + | Absolute | 2.35 | 1.00 - 3.90 | EXTERNAL | | | Lymphocytes | | 10*3/uL | LAB | | + + + + + + | Absolute | 0.80 | 0.00 - 0.80 | EXTERNAL | | | Monocytes | | 10*3/uL | LAB | | + + + + + + | Absolute | 0.21 | 0.00 - 0.50 | EXTERNAL | | | Eosinophils | | 10*3/uL | LAB | | + + + + + + | Absolute | 0.06 | 0.00 - 0.10 | EXTERNAL | | | Basophils | | 10*3/uL | LAB | | + + + + + + | RBC | 2+ | | EXTERNAL | | | Morphology | | | LAB | | + + + + + + | RBC | ANISO | | EXTERNAL | | | Morphology | | | LAB | | + + + + + + | RBC | 3+ | | EXTERNAL | | | Morphology | | | LAB | | + + + + + + | RBC | HYPO | | EXTERNAL | | | Morphology | | | LAB | | + + + + + + | RBC | NORMAL PLT MORPH | | EXTERNAL | | | Morphology | | | LAB | | + + + + + + + + | Specimen | + + | Blood specimen | | (specimen) | + + + +---------+ + + | Performing | Address | City/State/Zipcode | Phone Number | | Organization | | | | + +---------+ + + | EXTERNAL LAB | | | | + +---------+ + + C-Reactive Protein (07/20/2018 3:23 PM PDT) + +-------+ + + + | Component | Value | Ref Range | Performed | Pathologist | | | | | At | Signature | + +-------+ + + + | CRP | 0.3 | mg/dL | EXTERNAL | | | | | | LAB | | + +-------+ + + + + + | Specimen | + + | Blood specimen | | (specimen) | + + + +---------+ + + | Performing | Address | City/State/Zipcode | Phone Number | | Organization | | | | + +---------+ + + | EXTERNAL LAB | | | | + +---------+ + + Renal Function Panel (07/20/2018 3:23 PM PDT) + + + + + + | Component | Value | Ref Range | Performed | Pathologist | | | | | At | Signature | + + + + + + | Na | 138 | 135 - 145 | EXTERNAL | | | | | mmol/L | LAB | | + + + + + + | K | 5.0 (H) | 3.5 - 4.9 | EXTERNAL | | | | | mmol/L | LAB | | + + + + + + | Cl | 102 | 99 - 109 mmol/L | EXTERNAL | | | | | | LAB | | + + + + + + | CO2 | 27 | 23 - 32 mmol/L | EXTERNAL | | | | | | LAB | | + + + + + + | Anion Gap | 14 | 5 - 20 mmol/L | EXTERNAL | | | | | | LAB | | + + + + + + | Glucose, | 80 | 65 - 99 mg/dL | EXTERNAL | | | Fasting | | | LAB | | + + + + + + | BUN | 37 (H) | 8 - 25 mg/dL | EXTERNAL | | | | | | LAB | | + + + + + + | Creatinine | 2.0 (H) | 0.70 - 1.30 | EXTERNAL | | | | | mg/dL | LAB | | + + + + + + | Calcium | 8.8 | 8.5 - 10.5 | EXTERNAL | | | | | mg/dL | LAB | | + + + + + + | Albumin | 3.9 | 3.6 - 5.0 g/dL | EXTERNAL | | | | | | LAB | | + + + + + + | PHOSPHORUS | 5.7 (H) | 2.3 - 4.8 mg/dL | EXTERNAL | | | | | | LAB | | + + + + + + | Estimated | 34 (L)Comment: GFR <60: | mL/min/1.73_m2 | EXTERNAL | | | GFR | CHRONIC KIDNEY DISEASE, | | LAB | | | | IF FOUND OVER A 3 MONTH | | | | | | PERIOD. GFR <15: KIDNEY | | | | | | FAILURE. FOR | | | | | | AMERICANS, MULTIPLY THE | | | | | | CALCULATED GFR BY 1.210. | | | | | | This eGFR is calculated | | | | | | using the MDRD IDWA | | | | | | traceable equation. | | | | + + + + + + + + | Specimen | + + | Blood specimen | | (specimen) | + + + +---------+ + + | Performing | Address | City/State/Zipcode | Phone Number | | Organization | | | | + +---------+ + + | EXTERNAL LAB | | | | + +---------+ + + Comprehensive Metabolic Panel (07/20/2018 3:23 PM PDT) + + + + + + | Component | Value | Ref Range | Performed | Pathologist | | | | | At | Signature | + + + + + + | Na | 137 | 135 - 145 | EXTERNAL | | | | | mmol/L | LAB | | + + + + + + | K | 4.8 | 3.5 - 4.9 | EXTERNAL | | | | | mmol/L | LAB | | + + + + + + | Cl | 102 | 99 - 109 mmol/L | EXTERNAL | | | | | | LAB | | + + + + + + | CO2 | 26 | 23 - 32 mmol/L | EXTERNAL | | | | | | LAB | | + + + + + + | Anion Gap | 14 | 5 - 20 mmol/L | EXTERNAL | | | | | | LAB | | + + + + + + | Glucose, | 78 | 65 - 99 mg/dL | EXTERNAL | | | Fasting | | | LAB | | + + + + + + | BUN | 39 (H) | 8 - 25 mg/dL | EXTERNAL | | | | | | LAB | | + + + + + + | Creatinine | 2.0 (H) | 0.70 - 1.30 | EXTERNAL | | | | | mg/dL | LAB | | + + + + + + | BUN/Creatin | 20 | | EXTERNAL | | | ine Ratio | | | LAB | | + + + + + + | Calcium | 8.9 | 8.5 - 10.5 | EXTERNAL | | | | | mg/dL | LAB | | + + + + + + | Protein, | 8.0 | 6.3 - 8.2 g/dL | EXTERNAL | | | Total | | | LAB | | + + + + + + | Albumin | 4.3 | 3.6 - 5.0 g/dL | EXTERNAL | | | | | | LAB | | + + + + + + | Globulin | 3.7 | 1.3 - 4.9 g/dL | EXTERNAL | | | | | | LAB | | + + + + + + | A/G Ratio | 1.2 | 1.0 - 2.4 | EXTERNAL | | | | | | LAB | | + + + + + + | Bilirubin | 0.4 | 0.1 - 1.5 mg/dL | EXTERNAL | | | Total | | | LAB | | + + + + + + | ALP, | 119 (H) | 35 - 115 U/L | EXTERNAL | | | External | | | LAB | | + + + + + + | AST | 10 | 10 - 45 U/L | EXTERNAL | | | | | | LAB | | + + + + + + | ALT | 16 | 10 - 65 U/L | EXTERNAL | | | | | | LAB | | + + + + + + | Estimated | 34 (L)Comment: GFR <60: | mL/min/1.73_m2 | EXTERNAL | | | GFR | CHRONIC KIDNEY DISEASE, | | LAB | | | | IF FOUND OVER A 3 MONTH | | | | | | PERIOD. GFR <15: KIDNEY | | | | | | FAILURE. FOR | | | | | | AMERICANS, MULTIPLY THE | | | | | | CALCULATED GFR BY 1.210. | | | | | | This eGFR is calculated | | | | | | using the MDRD IDMS | | | | | | traceable equation. | | | | + + + + + + + + | Specimen | + + | Blood specimen | | (specimen) | + + + +---------+ + + | Performing | Address | City/State/Zipcode | Phone Number | | Organization | | | | + +---------+ + + | EXTERNAL LAB | | | | + +---------+ + + documented in this encounter Visit Diagnoses Not on filedocumented in this encounter"
--- OUTSIDE RECORDS SUMMARY | ~2020-04-08 | XMS | Encounter Summary ---
Demographics + + + | Address | [address] | | | [place] [address] | + + + | Home Phone | | + + + | Preferred Language | Unknown | + + + | Marital Status | Single | + + + | Adventist Affiliation | CHR | + + + | Race | White | + + + | Ethnic Group | Not or | + + + Author + + + | Author | [facility] | + + + | Organization | [facility] | + + + | Address | Unknown | + + + | Phone | Unavailable | + + + Support + + +---------+ + | Name | Relationship | Address | Phone | + + +---------+ + | Kaycee Ferraro | ECON | Unknown | | + + +---------+ + Care Team Providers + +------+ + | Care Veterinary Bacteriologist Name | Role | Phone | + +------+ + | Chery Carrion PA-C | PCP | | + +------+ + Encounter Details +--------+ + + + + | Date | Type | Department | Care Team | Description | +--------+ + + + + | 10/01/ | Hospital | Registration [address] | Bassem Wagner, | | | 2007 | Activity | [address] | [address] | | | | | [address] Mailcode: [id number] | [place], [place] | | | | | [place], [place] | [address] | | | | | [address] | [phone] | | | | | [phone] | | | +--------+ + + + [...] | + +--------+ + + + | X-RAY KNEE 2 VIEWS | Routin | 10/05/2007 | | Results for this | | LEFT | e | 9:13 AM | | procedure are in the | | | | PST | | results section. | + +--------+ + + + | SLIDE REVIEW | Routin | 10/05/2007 | | Results for this | | | e | 8:38 AM | | procedure are in the | | | | PST | | results section. | + +--------+ + + + | BASIC METABOLIC SET | Routin | 10/05/2007 | | Results for this | | (NA, K, CL, TCO2, | e | 8:38 AM | | procedure are in the | | BUN, CR, GLU, CA) | | PST | | results section. | + +--------+ + + + | CBC ONLY | Routin | 10/05/2007 | | Results for this | | | e | 8:38 AM | | procedure are in the | | | | PST | | results section. | + +--------+ + + + | BASIC METABOLIC SET | Routin | 10/04/2007 | | Results for this | | (NA, K, CL, TCO2, | e | 6:01 AM | | procedure are in the | | BUN, CR, GLU, CA) | | PST | | results section. | + +--------+ + + + | CBC ONLY | Routin | 10/04/2007 | | Results for this | | | e | 6:01 AM | | procedure are in the | | | | PST | | results section. | + +--------+ + + + | SLIDE REVIEW | Routin | 10/03/2007 | | Results for this | | | e | 6:00 AM | | procedure are in the | | | | PST | | results section. | + +--------+ + + + | BASIC METABOLIC SET | Routin | 10/03/2007 | | Results for this | | (NA, K, CL, TCO2, | e | 6:00 AM | | procedure are in the | | BUN, CR, GLU, CA) | | PST | | results section. | + +--------+ + + + | CBC ONLY | Routin | 10/03/2007 | | Results for this | | | e | 6:00 AM | | procedure are in the | | | | PST | | results section. | + +--------+ + + + | DIFFERENTIAL | Routin | 10/02/2007 | | Results for this | | | e | 7:47 AM | | procedure are in the | | | | PST | | results section. | + +--------+ + + + | SLIDE REVIEW | Routin | 10/02/2007 | | Results for this | | | e | 7:47 AM | | procedure are in the | | | | PST | | results section. | + +--------+ + + + | CBC, WITH | Routin | 10/02/2007 | | Results for this | | DIFFERENTIAL | e | 7:47 AM | | procedure are in the | | | | PST | | results section. | + +--------+ + + + | LIVER SET | Routin | 10/02/2007 | | Results for this | | (AST,ALT,BILI | e | 7:47 AM | | procedure are in the | | TOTAL,BILI | | PST | | results section. | | DIRECT,ALK | | | | | | PHOS,ALB,PROT TOTAL) | | | | | + +--------+ + + + | BASIC METABOLIC SET | Routin | 10/02/2007 | | Results for this | | (NA, K, CL, TCO2, | e | 7:47 AM | | procedure are in the | | BUN, CR, GLU, CA) | | PST | | results section. | + +--------+ + + + | CBC ONLY | Routin | 10/02/2007 | | Results for this | | | e | 7:47 AM | | procedure are in the | | | | PST | | results section. | + +--------+ + + + | COAGULOPATHY PANEL | Routin | 10/02/2007 | | Results for this | | (INR,APTT,FIBRINOGEN | e | 7:47 AM | | procedure are in the | | ) | | PST | | results section. | + +--------+ + + + | PHOSPHORUS, PLASMA | Routin | 10/02/2007 | | Results for this | | | e | 7:47 AM | | procedure are in the | | | | PST | | results section. | + +--------+ + + + | HEMOGLOBIN A1C, | Routin | 10/02/2007 | | Results for this | | BLOOD | e | 7:47 AM | | procedure are in the | | | | PST | | results section. | + +--------+ + + + | MAGNESIUM, PLASMA | Routin | 10/02/2007 | | Results for this | | | e | 7:47 AM | | procedure are in the | | | | PST | | results section. | + +--------+ + + + | INR | Routin | 10/01/2007 | | Results for this | | | e | 7:45 PM | | procedure are in the | | | | PST | | results section. | + +--------+ + + + | BASIC METABOLIC SET | Routin | 10/01/2007 | | Results for this | | (NA, K, CL, TCO2, | e | 7:45 PM | | procedure are in the | | BUN, CR, GLU, CA) | | PST | | results section. | + +--------+ + + + | CBC ONLY | Routin | 10/01/2007 | | Results for this | | | e | 7:45 PM | | procedure are in the | | | | PST | | results section. | + +--------+ + + + | APTT (ACT. PART. | Routin | 10/01/2007 | | Results for this | | THROMBO TIME) | e | 7:45 PM | | procedure are in the | | | | PST | | results section. | + +--------+ + + + | X-RAY KNEE 2 VIEWS | Priori | 10/01/2007 | | Results for this | | LEFT | ty | 6:22 PM | | procedure are in the | | | | PST | | results section. | + +--------+ + + + documented in this encounter Results X-RAY KNEE 2 VIEWS LEFT (10/05/2007 9:13 AM PST) + + + + + + | Component | Value | Ref Range | Performed | Pathologist | | | | | At | Signature | + + + + + + | KNEE 2 | Radiologist 1: NIELS, | | | | | VIEWS LEFT | CALIN FRITZ KNEE, TWO | | | | | | VIEWS: 10/05/2007 | | | | | | Dictated | | | | | | 10/05/2007CLINICAL DATA: | | | | | | Knee | | | | | | dislocation.COMPARISON: | | | | | | 10/04/2007.FINDINGS: | | | | | | External fixation pins | | | | | | are now present within | | | | | | thedistalfemur and | | | | | | proximal tibia. There | | | | | | is mild asymmetric | | | | | | widening ofthelateral | | | | | | femorotibial joint | | | | | | space. Femorotibial | | | | | | alignment isotherwise | | | | | | within normal limits. | | | | | | No fracture is | | | | | | identified. Thereisa | | | | | | large joint | | | | | | effusion.IMPRESSION:Mild | | | | | | asymmetric widening of | | | | | | the lateral femorotibial | | | | | | joint space,suggesting | | | | | | lateral ligamentous | | | | | | injury.END IMPRESSION: | | | | + + + + + + + + | Specimen | + + | | + + + +---------+ + + | Performing | Address | City/State/Zipcode | Phone Number | | Organization | | | | + +---------+ + + | [facility] DEPARTMENT OF | | | | | RADIOLOGY | | | | + +---------+ + + SLIDE REVIEW (10/05/2007 8:38 AM PST) + + | Specimen | + + | | + + + + + | Narrative | Performed At | + + + | * Corrected 10/05/07 10:34: JOSEFINA COMMENTS, prev report: Not | [facility] | | reported | DEPARTMENT OF | | | PATHOLOGY | + + + + + + + + | Performing | Address | City/State/Zipcode | Phone Number | | Organization | | | | + + + + + | [facility] DEPARTMENT OF | [address] [facility] | [place] [address] | | | PATHOLOGY | [address] | | | + + + + + | [facility] DEPARTMENT OF | [facility] | [place] [address] | | | PATHOLOGY | [address] | | | + + + + + BASIC METABOLIC SET (10/05/2007 8:38 AM PST) + +---------+ + + + | Component | Value | Ref Range | Performed | Pathologist | | | | | At | Signature | + +---------+ + + + | GLUCOSE, | 151 (H) | 60 - 99 mg/dL | [facility] | | | PLASMA | | | DEPARTMENT | | | (LAB) | | | OF | | | | | | PATHOLOGY | | + +---------+ + + + | BUN, PLASMA | 10 | 6 - 20 mg/dL | [facility] | | | (LAB) | | | DEPARTMENT | | | | | | OF | | | | | | PATHOLOGY | | + +---------+ + + + | CREATININE | 1.0 | 0.7 - 1.3 mg/dL | [facility] | | | PLASMA | | | DEPARTMENT | | | (LAB) | | | OF | | | | | | PATHOLOGY | | + +---------+ + + + | SODIUM, | 135 (L) | 136 - 145 | [facility] | | | PLASMA | | mmol/L | DEPARTMENT | | | (LAB) | | | OF | | | | | | PATHOLOGY | | + +---------+ + + + | POTASSIUM, | 4.5 | 3.5 - 5.1 | [facility] | | | PLASMA | | mmol/L | DEPARTMENT | | | (LAB) | | | OF | | | | | | PATHOLOGY | | + +---------+ + + + | CHLORIDE, | 96 (L) | 98 - 107 mmol/L | [facility] | | | PLASMA | | | DEPARTMENT | | | (LAB) | | | OF | | | | | | PATHOLOGY | | + +---------+ + + + | TOTAL CO2, | 32 (H) | 23 - 29 mmol/L | [facility] | | | PLASMA | | | DEPARTMENT | | | (LAB) | | | OF | | | | | | PATHOLOGY | | + +---------+ + + + | CALCIUM, | 8.5 | 8.5 - 10.5 | [facility] | | | PLASMA | | mg/dL | DEPARTMENT | | | (LAB) | | | OF | | | | | | PATHOLOGY | | + +---------+ + + + + + | Specimen | + + | | + + + + + + + | Performing | Address | City/State/Zipcode | Phone Number | | Organization | | | | + + + + + | [facility] DEPARTMENT OF | [address] | [address] | | | PATHOLOGY | [address] | | | + + + + + | [facility] DEPARTMENT OF | [address] | [place] [address] | | | PATHOLOGY | [address] | | | + + + + + CBC ONLY WITH PLATELET (10/05/2007 8:38 AM PST) + + + + + + | Component | Value | Ref Range | Performed | Pathologist | | | | | At | Signature | + + + + + + | RED CELL | 5.83 | 4.50 - 5.90 | [facility] | | | COUNT | | M/cu mm | DEPARTMENT | | | | | | OF | | | | | | PATHOLOGY | | + + + + + + | HEMOGLOBIN | 11.0 (L) | 13.5 - 17.5 | [facility] | | | | | g/dL | DEPARTMENT | | | | | | OF | | | | | | PATHOLOGY | | + + + + + + | HEMATOCRIT | 34.9 (L) | 41.0 - 53.0 % | [facility] | | | | | | DEPARTMENT | | | | | | OF | | | | | | PATHOLOGY | | + + + + + + | MCV | 59.8 (L) | 80.0 - 96.0 fL | [facility] | | | | | | DEPARTMENT | | | | | | OF | | | | | | PATHOLOGY | | + + + + + + | MCHC | 31.6 (L) | 33.4 - 35.5 | [facility] | | | | | g/dL | DEPARTMENT | | | | | | OF | | | | | | PATHOLOGY | | + + + + + + | RDW | 22.6 (H) | 11.5 - 15.0 % | [facility] | | | | | | DEPARTMENT | | | | | | OF | | | | | | PATHOLOGY | | + + + + + + | PLATELET | 164 | 150 - 400 K/cu | [facility] | | | COUNT | | mm | DEPARTMENT | | | | | | OF | | | | | | PATHOLOGY | | + + + + + + | WHITE CELL | 11.5 (H) | 4.4 - 11.0 K/cu | [facility] | | | COUNT | | mm | DEPARTMENT | | | | | | OF | | | | | | PATHOLOGY | | + + + + + + | PLATELET | Final Platelet Report. | | [facility] | | | COMMENTS | | | DEPARTMENT | | | | | | OF | | | | | | PATHOLOGY | | + + + + + + + + | Specimen | + + | | + + + + + | Narrative | Performed At | + + + | * Corrected 10/05/07 10:34: JOSEFINA COMMENTS, prev report: Not | [facility] | | reported | DEPARTMENT OF | | | PATHOLOGY | + + + + + + + + | Performing | Address | City/State/Zipcode | Phone Number | | Organization | | | | + + + + + | [facility] DEPARTMENT OF | [address] | [place] [address] | | | PATHOLOGY | [address] | | | + + + + + | [facility] DEPARTMENT OF | [address] [facility] | [place] [address] | | | PATHOLOGY | [address] | | | + + + + + BASIC METABOLIC SET (10/04/2007 6:01 AM PST) + + + + + + | Component | Value | Ref Range | Performed | Pathologist | | | | | At | Signature | + + + + + + | GLUCOSE, | See cmnt | 60 - 99 mg/dL | [facility] | | | PLASMA | | | DEPARTMENT | | | (LAB) | | | OF | | | | | | PATHOLOGY | | + + + + + + | BUN, PLASMA | See cmnt | 6 - 20 mg/dL | [facility] | | | (LAB) | | | DEPARTMENT | | | | | | OF | | | | | | PATHOLOGY | | + + + + + + | CREATININE | See cmnt | 0.7 - 1.3 mg/dL | [facility] | | | PLASMA | | | DEPARTMENT | | | (LAB) | | | OF | | | | | | PATHOLOGY | | + + + + + + | SODIUM, | See cmnt | 136 - 145 | [facility] | | | PLASMA | | mmol/L | DEPARTMENT | | | (LAB) | | | OF | | | | | | PATHOLOGY | | + + + + + + | POTASSIUM, | See cmnt | 3.5 - 5.1 | [facility] | | | PLASMA | | mmol/L | DEPARTMENT | | | (LAB) | | | OF | | | | | | PATHOLOGY | | + + + + + + | CHLORIDE, | See cmnt | 98 - 107 mmol/L | [facility] | | | PLASMA | | | DEPARTMENT | | | (LAB) | | | OF | | | | | | PATHOLOGY | | + + + + + + | TOTAL CO2, | See cmnt | 23 - 29 mmol/L | [facility] | | | PLASMA | | | DEPARTMENT | | | (LAB) | | | OF | | | | | | PATHOLOGY | | + + + + + + | CALCIUM, | See cmnt | 8.5 - 10.5 | [facility] | | | PLASMA | | mg/dL | DEPARTMENT | | | (LAB) | | | OF | | | | | | PATHOLOGY | | + + + + + + | POTASSIUM | See cmnt | | [facility] | | | CMNT | | | DEPARTMENT | | | | | | OF | | | | | | PATHOLOGY | | + + + + + + + + | Specimen | + + | | + + + + + | Narrative | Performed At | + + + | Patient unavailable, specimen not obtained | [facility] | | | DEPARTMENT OF | | | PATHOLOGY | + + + + + + + + | Performing | Address | City/State/Zipcode | Phone Number | | Organization | | | | + + + + + | [facility] DEPARTMENT [facility] | [address] | [place] [address] | | | PATHOLOGY | [address] | | | + + + + + | [facility] DEPARTMENT OF | [address] | [place] [address] | | | PATHOLOGY | [address] | | | + + + + + CBC ONLY WITH PLATELET (10/04/2007 6:01 AM PST) + + + + + + | Component | Value | Ref Range | Performed | Pathologist | | | | | At | Signature | + + + + + + | WHITE CELL | See cmnt | 4.4 - 11.0 K/cu | [facility] | | | COUNT | | mm | DEPARTMENT | | | | | | OF | | | | | | PATHOLOGY | | + + + + + + | RED CELL | See cmnt | 4.50 - 5.90 | [facility] | | | COUNT | | M/cu mm | DEPARTMENT | | | | | | OF | | | | | | PATHOLOGY | | + + + + + + | HEMOGLOBIN | See cmnt | 13.5 - 17.5 | [facility] | | | | | g/dL | DEPARTMENT | | | | | | OF | | | | | | PATHOLOGY | | + + + + + + | HEMATOCRIT | See cmnt | 41.0 - 53.0 % | [facility] | | | | | | DEPARTMENT | | | | | | OF | | | | | | PATHOLOGY | | + + + + + + | MCV | See cmnt | 80.0 - 96.0 fL | [facility] | | | | | | DEPARTMENT | | | | | | OF | | | | | | PATHOLOGY | | + + + + + + | MCHC | See cmnt | 33.4 - 35.5 | [facility] | | | | | g/dL | DEPARTMENT | | | | | | OF | | | | | | PATHOLOGY | | + + + + + + | RDW | See cmnt | 11.5 - 15.0 % | [facility] | | | | | | DEPARTMENT | | | | | | OF | | | | | | PATHOLOGY | | + + + + + + | PLATELET | See cmnt | 150 - 400 K/cu | [facility] | | | COUNT | | mm | DEPARTMENT | | | | | | OF | | | | | | PATHOLOGY | | + + + + + + + + | Specimen | + + | | + + + + + | Narrative | Performed At | + + + | Patient unavailable, specimen not obtained | [facility] | | | DEPARTMENT OF | | | PATHOLOGY | + + + + + + + + | Performing | Address | City/State/Zipcode | Phone Number | | Organization | | | | + + + + + | [facility] | [address] [facility] | [address] | | | PATHOLOGY | [address] | | | + + + + + | [facility] | [facility] [facility] | [address] | | | PATHOLOGY | [address] | | | + + + + + SLIDE REVIEW (10/03/2007 6:00 AM PST) + + | Specimen | + + | | + + + + + | Narrative | Performed At | + + + | * Corrected 10/03/07 08:37: JOSEFINA COMMENTS, prev report: Not | [facility] | | reported | DEPARTMENT OF | | | PATHOLOGY | + + + + + + + + | Performing | Address | City/State/Zipcode | Phone Number | | Organization | | | | + + + + + | [facility] | [address] | [place] [address] | | | PATHOLOGY | [address] | | | + + + + + | [facility] DEPARTMENT OF | [address] | [place] [address] | | | PATHOLOGY | [address] | | | + + + + + BASIC METABOLIC SET (10/03/2007 6:00 AM PST) + +---------+ + + + | Component | Value | Ref Range | Performed | Pathologist | | | | | At | Signature | + +---------+ + + + | GLUCOSE, | 116 (H) | 60 - 99 mg/dL | [facility] | | | PLASMA | | | DEPARTMENT | | | (LAB) | | | OF | | | | | | PATHOLOGY | | + +---------+ + + + | BUN, PLASMA | 20 | 6 - 20 mg/dL | [facility] | | | (LAB) | | | DEPARTMENT | | | | | | OF | | | | | | PATHOLOGY | | + +---------+ + + + | CREATININE | 1.0 | 0.7 - 1.3 mg/dL | [facility] | | | PLASMA | | | DEPARTMENT | | | (LAB) | | | OF | | | | | | PATHOLOGY | | + +---------+ + + + | SODIUM, | 132 (L) | 136 - 145 | [facility] | | | PLASMA | | mmol/L | DEPARTMENT | | | (LAB) | | | OF | | | | | | PATHOLOGY | | + +---------+ + + + | POTASSIUM, | 3.5 | 3.5 - 5.1 | [facility] | | | PLASMA | | mmol/L | DEPARTMENT | | | (LAB) | | | OF | | | | | | PATHOLOGY | | + +---------+ + + + | CHLORIDE, | 99 | 98 - 107 mmol/L | [facility] | | | PLASMA | | | DEPARTMENT | | | (LAB) | | | OF | | | | | | PATHOLOGY | | + +---------+ + + + | TOTAL CO2, | 28 | 23 - 29 mmol/L | [facility] | | | PLASMA | | | DEPARTMENT | | | (LAB) | | | OF | | | | | | PATHOLOGY | | + +---------+ + + + | CALCIUM, | 7.9 (L) | 8.5 - 10.5 | [facility] | | | PLASMA | | mg/dL | DEPARTMENT | | | (LAB) | | | OF | | | | | | PATHOLOGY | | + +---------+ + + + + + | Specimen | + + | | + + + + + + + | Performing | Address | City/State/Zipcode | Phone Number | | Organization | | | | + + + + + | [facility] | [address] [facility] | [address] | | | PATHOLOGY | [address] | | | + + + + + | [facility] | [facility] | [address] | | | PATHOLOGY | [address] | | | + + + + + CBC ONLY WITH PLATELET (10/03/2007 6:00 AM PST) + + + + + + | Component | Value | Ref Range | Performed | Pathologist | | | | | At | Signature | + + + + + + | WHITE CELL | 14.0 (H) | 4.4 - 11.0 K/cu | [facility] | | | COUNT | | mm | DEPARTMENT | | | | | | OF | | | | | | PATHOLOGY | | + + + + + + | RED CELL | 5.36 | 4.50 - 5.90 | [facility] | | | COUNT | | M/cu mm | DEPARTMENT | | | | | | OF | | | | | | PATHOLOGY | | + + + + + + | HEMOGLOBIN | 10.1 (L) | 13.5 - 17.5 | [facility] | | | | | g/dL | DEPARTMENT | | | | | | OF | | | | | | PATHOLOGY | | + + + + + + | HEMATOCRIT | 31.8 (L) | 41.0 - 53.0 % | [facility] | | | | | | DEPARTMENT | | | | | | OF | | | | | | PATHOLOGY | | + + + + + + | MCV | 59.3 (L) | 80.0 - 96.0 fL | [facility] | | | | | | DEPARTMENT | | | | | | OF | | | | | | PATHOLOGY | | + + + + + + | MCHC | 31.7 (L) | 33.4 - 35.5 | [facility] | | | | | g/dL | DEPARTMENT | | | | | | OF | | | | | | PATHOLOGY | | + + + + + + | RDW | 22.4 (H) | 11.5 - 15.0 % | [facility] | | | | | | DEPARTMENT | | | | | | OF | | | | | | PATHOLOGY | | + + + + + + | PLATELET | 175 | 150 - 400 K/cu | [facility] | | | COUNT | | mm | DEPARTMENT | | | | | | OF | | | | | | PATHOLOGY | | + + + + + + | PLATELET | Final Platelet Report. | | [facility] | | | COMMENTS | | | DEPARTMENT | | | | | | OF | | | | | | PATHOLOGY | | + + + + + + + + | Specimen | + + | | + + + + + | Narrative | Performed At | + + + | * Corrected 10/03/07 08:37: JOSEFINA COMMENTS, prev report: Not | [facility] | | reported | DEPARTMENT OF | | | PATHOLOGY | + + + + + + + + | Performing | Address | City/State/Zipcode | Phone Number | | Organization | | | | + + + + + | [facility] DEPARTMENT | [address] [facility] | [place] [address] | | | PATHOLOGY | [address] | | | + + + + + | [facility] DEPARTMENT OF | [facility] | [place] [address] | | | PATHOLOGY | [address] | | | + + + + + SLIDE REVIEW (10/02/2007 7:47 AM PST) + + | Specimen | + + | | + + + + + | Narrative | Performed At | + + + | * Corrected 10/02/07 10:45: JOSEFINA COMMENTS, prev report: Not | [facility] | | reported | DEPARTMENT OF | | | PATHOLOGY | + + + + + + + + | Performing | Address | City/State/Zipcode | Phone Number | | Organization | | | | + + + + + | [facility] DEPARTMENT OF | [address] | [place] [address] | | | PATHOLOGY | [address] | | | + + + + + | [facility] DEPARTMENT OF | [address] | [place] [address] | | | PATHOLOGY | [address] | | | + + + + + PHOSPHORUS, PLASMA (10/02/2007 7:47 AM PST) + +-------+ + + + | Component | Value | Ref Range | Performed | Pathologist | | | | | At | Signature | + +-------+ + + + | PHOSPHORUS, | 3.5 | 2.4 - 4.7 mg/dL | [facility] | | | PLASMA | | | DEPARTMENT | | | (LAB) | | | OF | | | | | | PATHOLOGY | | + +-------+ + + + + + | Specimen | + + | | + + + + + + + | Performing | Address | City/State/Zipcode | Phone Number | | Organization | | | | + + + + + | [facility] | [facility] | [place] [address] | | | PATHOLOGY | [address] | | | + + + + + | [facility] DEPARTMENT OF | [facility] | [place] [address] | | | PATHOLOGY | [address] | | | + + + + + MAGNESIUM, PLASMA (10/02/2007 7:47 AM PST) + +-------+ + + + | Component | Value | Ref Range | Performed | Pathologist | | | | | At | Signature | + +-------+ + + + | MAGNESIUM,P | 2.5 | 1.8 - 2.5 mg/dL | [facility] | | | LASMA | | | DEPARTMENT | | | | | | OF | | | | | | PATHOLOGY | | + +-------+ + + + + + | Specimen | + + | | + + + + + + + | Performing | Address | City/State/Zipcode | Phone Number | | Organization | | | | + + + + + | [facility] | [address] | [place] [address] | | | PATHOLOGY | [address] | | | + + + + + | [facility] | [address] [facility] | [place] [address] | | | PATHOLOGY | [address] | | | + + + + + LIVER SET (10/02/2007 7:47 AM PST) + +---------+ + + + | Component | Value | Ref Range | Performed | Pathologist | | | | | At | Signature | + +---------+ + + + | ALBUMIN, | 2.1 (L) | 3.5 - 4.7 g/dL | [facility] | | | PLASMA | | | DEPARTMENT | | | (LAB) | | | OF | | | | | | PATHOLOGY | | + +---------+ + + + | BILIRUBIN | 1.0 | 0.3 - 1.2 mg/dL | [facility] | | | TOTAL | | | DEPARTMENT | | | | | | OF | | | | | | PATHOLOGY | | + +---------+ + + + | BILIRUBIN | 0.3 | <0.4 mg/dL | [facility] | | | DIRECT | | | DEPARTMENT | | | | | | OF | | | | | | PATHOLOGY | | + +---------+ + + + | ALK PHOS | 80 | 53 - 128 U/L | [facility] | | | | | | DEPARTMENT | | | | | | OF | | | | | | PATHOLOGY | | + +---------+ + + + | AST(SGOT) | 15 | 15 - 41 U/L | [facility] | | | | | | DEPARTMENT | | | | | | OF | | | | | | PATHOLOGY | | + +---------+ + + + | ALT (SGPT) | 23 | 13 - 48 U/L | [facility] | | | | | | DEPARTMENT | | | | | | OF | | | | | | PATHOLOGY | | + +---------+ + + + | TOTAL | 5.7 (L) | 6.1 - 7.9 g/dL | [facility] | | | PROTEIN, | | | DEPARTMENT | | | PLASMA | | | OF | | | (LAB) | | | PATHOLOGY | | + +---------+ + + + + + | Specimen | + + | | + + + + + + + | Performing | Address | City/State/Zipcode | Phone Number | | Organization | | | | + + + + + | [facility] | [address] | [place] [address] | | | PATHOLOGY | [address] | | | + + + + + | [facility] | [address] | [place] [address] | | | PATHOLOGY | [address] | | | + + + + + HEMOGLOBIN A1C (10/02/2007 7:47 AM PST) + + + + + + | Component | Value | Ref Range | Performed | Pathologist | | | | | At | Signature | + + + + + + | HEMOGLOBIN | 7.2 (H)Comment: | <5.8 % | | | | A1C | Non-Diabetic: | | | | | | | | | | | | 4.0-5.7 % Risk For | | | | | | Chronic Complications | | | | | | in Adults: Low | | | | | | risk of complications: | | | | | | <7.0 | | | | | | % Intermediate | | | | | | risk of complications | | | | | | 7.0-7.9 % High | | | | | | risk of complications | | | | | | >7.9 % | | | | | | Test performed by | | | | | | [facility] | | | | | | [facility]. | | | | + + + + + + + + | Specimen | + + | | + + + + + + + | Performing | Address | City/State/Zipcode | Phone Number | | Organization | | | | + + + + + | [facility] | [address] | [place] [address] | | | LABORATORY | | | | + + + + + BASIC METABOLIC SET (10/02/2007 7:47 AM PST) + +---------+ + + + | Component | Value | Ref Range | Performed | Pathologist | | | | | At | Signature | + +---------+ + + + | GLUCOSE, | 139 (H) | 60 - 99 mg/dL | [facility] | | | PLASMA | | | DEPARTMENT | | | (LAB) | | | OF | | | | | | PATHOLOGY | | + +---------+ + + + | BUN, PLASMA | 47 (H) | 6 - 20 mg/dL | [facility] | | | (LAB) | | | DEPARTMENT | | | | | | OF | | | | | | PATHOLOGY | | + +---------+ + + + | CREATININE | 1.2 | 0.7 - 1.3 mg/dL | [facility] | | | PLASMA | | | DEPARTMENT | | | (LAB) | | | OF | | | | | | PATHOLOGY | | + +---------+ + + + | SODIUM, | 133 (L) | 136 - 145 | [facility] | | | PLASMA | | mmol/L | DEPARTMENT | | | (LAB) | | | OF | | | | | | PATHOLOGY | | + +---------+ + + + | POTASSIUM, | 3.9 | 3.5 - 5.1 | [facility] | | | PLASMA | | mmol/L | DEPARTMENT | | | (LAB) | | | OF | | | | | | PATHOLOGY | | + +---------+ + + + | CHLORIDE, | 102 | 98 - 107 mmol/L | [facility] | | | PLASMA | | | DEPARTMENT | | | (LAB) | | | OF | | | | | | PATHOLOGY | | + +---------+ + + + | TOTAL CO2, | 25 | 23 - 29 mmol/L | [facility] | | | PLASMA | | | DEPARTMENT | | | (LAB) | | | OF | | | | | | PATHOLOGY | | + +---------+ + + + | CALCIUM, | 7.8 (L) | 8.5 - 10.5 | [facility] | | | PLASMA | | mg/dL | DEPARTMENT | | | (LAB) | | | OF | | | | | | PATHOLOGY | | + +---------+ + + + + + | Specimen | + + | | + + + + + + + | Performing | Address | City/State/Zipcode | Phone Number | | Organization | | | | + + + + + | [facility] | [address] | [place] [address] | | | PATHOLOGY | [address] | | | + + + + + | [facility] | [address] | [address] | | | PATHOLOGY | [address] | | | + + + + + CBC ONLY WITH PLATELET (10/02/2007 7:47 AM PST) + + + + + + | Component | Value | Ref Range | Performed | Pathologist | | | | | At | Signature | + + + + + + | WHITE CELL | 10.9 | 4.4 - 11.0 K/cu | [facility] | | | COUNT | | mm | DEPARTMENT | | | | | | OF | | | | | | PATHOLOGY | | + + + + + + | RED CELL | 5.59 | 4.50 - 5.90 | [facility] | | | COUNT | | M/cu mm | DEPARTMENT | | | | | | OF | | | | | | PATHOLOGY | | + + + + + + | HEMOGLOBIN | 10.3 (L) | 13.5 - 17.5 | [facility] | | | | | g/dL | DEPARTMENT | | | | | | OF | | | | | | PATHOLOGY | | + + + + + + | HEMATOCRIT | 32.8 (L) | 41.0 - 53.0 % | [facility] | | | | | | DEPARTMENT | | | | | | OF | | | | | | PATHOLOGY | | + + + + + + | MCV | 58.6 (L) | 80.0 - 96.0 fL | [facility] | | | | | | DEPARTMENT | | | | | | OF | | | | | | PATHOLOGY | | + + + + + + | MCHC | 31.3 (L) | 33.4 - 35.5 | [facility] | | | | | g/dL | DEPARTMENT | | | | | | OF | | | | | | PATHOLOGY | | + + + + + + | RDW | 21.0 (H) | 11.5 - 15.0 % | [facility] | | | | | | DEPARTMENT | | | | | | OF | | | | | | PATHOLOGY | | + + + + + + | PLATELET | 178 | 150 - 400 K/cu | [facility] | | | COUNT | | mm | DEPARTMENT | | | | | | OF | | | | | | PATHOLOGY | | + + + + + + | PLATELET | Final Platelet Report. | | [facility] | | | COMMENTS | | | DEPARTMENT | | | | | | OF | | | | | | PATHOLOGY | | + + + + + + + + | Specimen | + + | | + + + + + | Narrative | Performed At | + + + | * Corrected 10/02/07 10:45: JOSEFINA COMMENTS, prev report: Not | [facility] | | reported | DEPARTMENT OF | | | PATHOLOGY | + + + + + + + + | Performing | Address | City/State/Zipcode | Phone Number | | Organization | | | | + + + + + | [facility] DEPARTMENT OF | [address] | [place] [address] | | | PATHOLOGY | [address] | | | + + + + + | [facility] DEPARTMENT OF | [address] [facility] | [place] [address] | | | PATHOLOGY | [address] | | | + + + + + COAGULOPATHY PANEL (10/02/2007 7:47 AM PST) + + + + + + | Component | Value | Ref Range | Performed | Pathologist | | | | | At | Signature | + + + + + + | INR | 1.30 (H)Comment: | 0.90 - 1.20 INR | [facility] | | | | PT INR Therapeutic | | DEPARTMENT | | | | ranges for full | | OF | | | | anticoagulation: | | PATHOLOGY | | | | INR for | | | | | | Venous Thromboembolism | | | | | | | | | | | | (2.0-3.0)INR | | | | | | INR for most | | | | | | patients with mech. | | | | | | valves (2.5-3.5)INR | | | | + + + + + + | APTT | 43.3 (H)Comment: | 26.0 - 36.0 | [facility] | | | | APTT Therapeutic | seconds | DEPARTMENT | | | | Range | | OF | | | | | | PATHOLOGY | | | | (75-120)sec | | | | | | Heparin levels | | | | | | of 0.35-0.7 U/mL | | | | + + + + + + | FIBRINOGEN | > 750 (H) | 200 - 450 mg/dL | [facility] | | | LEVEL | | | DEPARTMENT | | | | | | OF | | | | | | PATHOLOGY | | + + + + + + + + | Specimen | + + | | + + + + + + + | Performing | Address | City/State/Zipcode | Phone Number | | Organization | | | | + + + + + | [facility] | [address] [facility] | [address] | | | PATHOLOGY | [address] | | | + + + + + | [facility] | [address] [place] [address] | [address] | | | PATHOLOGY | [address] | | | + + + + + DIFFERENTIAL (10/02/2007 7:47 AM PST) + + + + + + | Component | Value | Ref Range | Performed | Pathologist | | | | | At | Signature | + + + + + + | NEUTROPHIL | See cmnt | 50 - 70 % | [facility] | | | % | | | DEPARTMENT | | | | | | OF | | | | | | PATHOLOGY | | + + + + + + | LYMPHOCYTE | See cmnt | 18 - 42 % | [facility] | | | % | | | DEPARTMENT | | | | | | OF | | | | | | PATHOLOGY | | + + + + + + | MONOCYTE % | See cmnt | 2 - 8 % | [facility] | | | | | | DEPARTMENT | | | | | | OF | | | | | | PATHOLOGY | | + + + + + + | EOS % | See cmnt | 1 - 3 % | [facility] | | | | | | DEPARTMENT | | | | | | OF | | | | | | PATHOLOGY | | + + + + + + | BASO % | See cmnt | <3 % | [facility] | | | | | | DEPARTMENT | | | | | | OF | | | | | | PATHOLOGY | | + + + + + + + + | Specimen | + + | | + + + + + | Narrative | Performed At | + + + | Erroneous request. | [facility] | | | DEPARTMENT OF | | | PATHOLOGY | + + + + + + + + | Performing | Address | City/State/Zipcode | Phone Number | | Organization | | | | + + + + + | [facility] | [address] [facility] | [place] [address] | | | PATHOLOGY | [address] | | | + + + + + | [facility] | [address] [facility] | [place] [address] | | | PATHOLOGY | [address] | | | + + + + + CBC, WITH DIFFERENTIAL (10/02/2007 7:47 AM PST) + + + + + + | Component | Value | Ref Range | Performed | Pathologist | | | | | At | Signature | + + + + + + | WHITE CELL | See cmnt | 4.4 - 11.0 K/cu | [facility] | | | COUNT | | mm | DEPARTMENT | | | | | | OF | | | | | | PATHOLOGY | | + + + + + + | RED CELL | See cmnt | 4.50 - 5.90 | [facility] | | | COUNT | | M/cu mm | DEPARTMENT | | | | | | OF | | | | | | PATHOLOGY | | + + + + + + | HEMOGLOBIN | See cmnt | 13.5 - 17.5 | [facility] | | | | | g/dL | DEPARTMENT | | | | | | OF | | | | | | PATHOLOGY | | + + + + + + | HEMATOCRIT | See cmnt | 41.0 - 53.0 % | [facility] | | | | | | DEPARTMENT | | | | | | OF | | | | | | PATHOLOGY | | + + + + + + | MCV | See cmnt | 80.0 - 96.0 fL | [facility] | | | | | | DEPARTMENT | | | | | | OF | | | | | | PATHOLOGY | | + + + + + + | MCHC | See cmnt | 33.4 - 35.5 | [facility] | | | | | g/dL | DEPARTMENT | | | | | | OF | | | | | | PATHOLOGY | | + + + + + + | RDW | See cmnt | 11.5 - 15.0 % | [facility] | | | | | | DEPARTMENT | | | | | | OF | | | | | | PATHOLOGY | | + + + + + + | PLATELET | See cmnt | 150 - 400 K/cu | [facility] | | | COUNT | | mm | DEPARTMENT | | | | | | OF | | | | | | PATHOLOGY | | + + + + + + + + | Specimen | + + | | + + + + + | Narrative | Performed At | + + + | Erroneous request. | [facility] | | | DEPARTMENT OF | | | PATHOLOGY | + + + + + + + + | Performing | Address | City/State/Zipcode | Phone Number | | Organization | | | | + + + + + | [facility] DEPARTMENT OF | [facility] | [place] [address] | | | PATHOLOGY | [address] | | | + + + + + | [facility] DE[facility]MENT [facility] | [facility] | [place] [address] | | | PATHOLOGY | [address] | | | + + + + + BASIC METABOLIC SET (10/01/2007 7:45 PM PST) + +---------+ + + + | Component | Value | Ref Range | Performed | Pathologist | | | | | At | Signature | + +---------+ + + + | GLUCOSE, | 109 (H) | 60 - 99 mg/dL | [facility] | | | PLASMA | | | DEPARTMENT | | | (LAB) | | | OF | | | | | | PATHOLOGY | | + +---------+ + + + | BUN, PLASMA | 69 (H) | 6 - 20 mg/dL | [facility] | | | (LAB) | | | DEPARTMENT | | | | | | OF | | | | | | PATHOLOGY | | + +---------+ + + + | CREATININE | 1.7 (H) | 0.7 - 1.3 mg/dL | [facility] | | | PLASMA | | | DEPARTMENT | | | (LAB) | | | OF | | | | | | PATHOLOGY | | + +---------+ + + + | SODIUM, | 135 (L) | 136 - 145 | [facility] | | | PLASMA | | mmol/L | DEPARTMENT | | | (LAB) | | | OF | | | | | | PATHOLOGY | | + +---------+ + + + | POTASSIUM, | 4.2 | 3.5 - 5.1 | [facility] | | | PLASMA | | mmol/L | DEPARTMENT | | | (LAB) | | | OF | | | | | | PATHOLOGY | | + +---------+ + + + | CHLORIDE, | 102 | 98 - 107 mmol/L | [facility] | | | PLASMA | | | DEPARTMENT | | | (LAB) | | | OF | | | | | | PATHOLOGY | | + +---------+ + + + | TOTAL CO2, | 25 | 23 - 29 mmol/L | [facility] | | | PLASMA | | | DEPARTMENT | | | (LAB) | | | OF | | | | | | PATHOLOGY | | + +---------+ + + + | CALCIUM, | 7.8 (L) | 8.5 - 10.5 | [facility] | | | PLASMA | | mg/dL | DEPARTMENT | | | (LAB) | | | OF | | | | | | PATHOLOGY | | + +---------+ + + + + + | Specimen | + + | | + + + + + + + | Performing | Address | City/State/Zipcode | Phone Number | | Organization | | | | + + + + + | [facility] DEPARTMENT OF | [address] | [address] | | | PATHOLOGY | [address] | | | + + + + + | [facility] DEPARTMENT OF | [address] | [address] | | | PATHOLOGY | [address] | | | + + + + + CBC ONLY WITH PLATELET (10/01/2007 7:45 PM PST) + + + + + + | Component | Value | Ref Range | Performed | Pathologist | | | | | At | Signature | + + + + + + | WHITE CELL | 10.2 | 4.4 - 11.0 K/cu | [facility] | | | COUNT | | mm | DEPARTMENT | | | | | | OF | | | | | | PATHOLOGY | | + + + + + + | RED CELL | 5.38 | 4.50 - 5.90 | [facility] | | | COUNT | | M/cu mm | DEPARTMENT | | | | | | OF | | | | | | PATHOLOGY | | + + + + + + | HEMOGLOBIN | 10.0 (L) | 13.5 - 17.5 | [facility] | | | | | g/dL | DEPARTMENT | | | | | | OF | | | | | | PATHOLOGY | | + + + + + + | HEMATOCRIT | 31.8 (L) | 41.0 - 53.0 % | [facility] | | | | | | DEPARTMENT | | | | | | OF | | | | | | PATHOLOGY | | + + + + + + | MCV | 58.9 (L) | 80.0 - 96.0 fL | [facility] | | | | | | DEPARTMENT | | | | | | OF | | | | | | PATHOLOGY | | + + + + + + | MCHC | 31.5 (L) | 33.4 - 35.5 | [facility] | | | | | g/dL | DEPARTMENT | | | | | | OF | | | | | | PATHOLOGY | | + + + + + + | RDW | 21.0 (H) | 11.5 - 15.0 % | [facility] | | | | | | DEPARTMENT | | | | | | OF | | | | | | PATHOLOGY | | + + + + + + | PLATELET | 184 | 150 - 400 K/cu | [facility] | | | COUNT | | mm | DEPARTMENT | | | | | | OF | | | | | | PATHOLOGY | | + + + + + + + + | Specimen | + + | | + + + + + + + | Performing | Address | City/State/Zipcode | Phone Number | | Organization | | | | + + + + + | [facility] DEPARTMENT OF | [address] | [address] | | | PATHOLOGY | [address] | | | + + + + + | [facility] | [address] [facility] | [address] | | | PATHOLOGY | [address] | | | + + + + + APTT (ACT. PART. THROMBO TIME) (10/01/2007 7:45 PM PST) + + + + + + | Component | Value | Ref Range | Performed | Pathologist | | | | | At | Signature | + + + + + + | APTT | 41.7 (H)Comment: | 26.0 - 36.0 | [facility] | | | | APTT Therapeutic | seconds | DEPARTMENT | | | | Range | | OF | | | | | | PATHOLOGY | | | | (75-120)sec | | | | | | Heparin levels | | | | | | of 0.35-0.7 U/mL | | | | + + + + + + + + | Specimen | + + | | + + + + + + + | Performing | Address | City/State/Zipcode | Phone Number | | Organization | | | | + + + + + | [facility] | [facility] | [place] [address] | | | PATHOLOGY | [address] | | | + + + + + | [facility] | [address] [facility] | [place] [address] | | | PATHOLOGY | [address] | | | + + + + + PROTHROMBIN TIME (10/01/2007 7:45 PM PST) + + + + + + | Component | Value | Ref Range | Performed | Pathologist | | | | | At | Signature | + + + + + + | INR | 1.37 (H)Comment: | 0.90 - 1.20 INR | [facility] | | | | PT INR Therapeutic | | DEPARTMENT | | | | ranges for full | | OF | | | | anticoagulation: | | PATHOLOGY | | | | INR for | | | | | | Venous Thromboembolism | | | | | | | | | | | | (2.0-3.0)INR | | | | | | INR for most | | | | | | patients with mech. | | | | | | valves (2.5-3.5)INR | | | | + + + + + + + + | Specimen | + + | | + + + + + + + | Performing | Address | City/State/Zipcode | Phone Number | | Organization | | | | + + + + + | [facility] | [address] | [address] | | | PATHOLOGY | [address] | | | + + + + + | [facility] | [address] | [address] | | | PATHOLOGY | [address] | | | + + + + + X-RAY KNEE 2 VIEWS LEFT (10/01/2007 6:22 PM PST) + + + + + + | Component | Value | Ref Range | Performed | Pathologist | | | | | At | Signature | + + + + + + | KNEE 2 | Radiologist 1: | | | | | VIEWS LEFT | ANATOLY EVANS | | | | | | Sherine-Radiologist 2: | | | | | | LANDEN NEAL M.D.STUDY: | | | | | | AP and lateral left | | | | | | kneeCOMPARISON: | | | | | | NoneCLINICAL HISTORY: | | | | | | Evaluate for | | | | | | dislocationFINDINGS:The | | | | | | left leg is in a brace. | | | | | | 7 mm density posterior | | | | | | to the tibialplateau is | | | | | | not well-defined and | | | | | | could represent ossicle | | | | | | orfracture fragment. | | | | | | There is a small knee | | | | | | joint effusion.Alignment | | | | | | about the knee is | | | | | | maintained. Diffuse | | | | | | soft tissueswelling is | | | | | | present.IMPRESSION:1. | | | | | | 7 mm density posterior | | | | | | to the tibial plateau | | | | | | could representossicle | | | | | | or avulsion fragment. | | | | | | If there is concern | | | | | | over | | | | | | internalderangement, MRI | | | | | | could be performed to | | | | | | further evaluate.2. | | | | | | Small joint | | | | | | effusion.3. No | | | | | | malalignment.4. | | | | | | Diffuse soft tissue | | | | | | swelling. | | | | + + + + + + + + | Specimen | + + | | + + + +---------+ + + | Performing | Address | City/State/Zipcode | Phone Number | | Organization | | | | + +---------+ + + | [facility] | | | | | RADIOLOGY | | | | + +---------+ + + documented in this encounter Visit Diagnoses Not on filedocumented in this encounter"
--- OUTSIDE RECORDS SUMMARY | ~2020-04-08 | XMS | Encounter Summary ---
Demographics + + + | Address | [address] | | | [place] [address] | + + + | Home Phone | | + + + | Preferred Language | Unknown | + + + | Marital Status | Single | + + + | Caodaism Affiliation | 1013 | + + + | Race | Unknown | + + + | Ethnic Group | Unknown | + + + Author + + + | Author | [facility] | | | and [place] | + + + | Organization | [facility] | | | and [...] Team Providers + +------+ + | Care Crop Picker Name | Role | Phone | + +------+ + | Chery Carrion | PCP | | + +------+ + Reason for Referral Diagnostic/Screening (Routine) +--------+--------+ + + + + | Status | Reason | Specialty | Diagnoses / | Referred By | Referred To | | | | | Procedures | Contact | Contact | +--------+--------+ + + + + | Closed | | Radiology | Diagnoses | Fuentes Ahumada | | | | | | Ulcer of | MD Valerio | | | | | | left foot, | [address] | | | | | | unspecified | [address] | | | | | | ulcer stage | [place] [address] | | | | | | ([facility]) | [facility] [place] | | | | | | Procedures | [id number] | | | | | | VAS Ankle | Phone: | | | | | | Brachial | [phone] | | | | | | Index | Fax: | | | | | | Resting | [phone] | | +--------+--------+ + + + + Reason for Visit +---------+--------+ + | Reason | Onset | Comments | | | Date | | +---------+--------+ + | Consult | 02/28/ | | | | 2020 | | +---------+--------+ + Encounter Details +--------+ + + + + | Date | Type | Department | Care Team | Description | +--------+ + + + + | 02/28/ | Telephone | [facility] | Fuentes Ahumada MD | Consult | | 2020 | | VASCULAR SURGERY | [address] | | | | | [address] [place] | [place], [place] | | | | | [place], [place] | [address] | | | | | [address] | | | | | | [phone] | | | +--------+ + + + [...] + + documented as of this encounter Miscellaneous Notes Telephone Encounter - My Mc - 02/29/2020 8:59 AM PDTPhone call received jonny young patient, Abner - Scheduled US Arterial 03/19/2020 @ 10am - Scheduled New Patient Consult urban Ahumada 03/19/2020 @ 11am for Left Foot Ulcer - MMN Note: Patient states that he has open heart surgery 2 years ago at [facility] (04/2018) Patient doesn't drive - Transportation must be scheduled in advance with [facility] Transportation [facility] in [place] documented in this encounter Plan of Treatment +--------+ + + + + | Date | Type | Specialty | Care Team | Description | +--------+ + + + + | 04/19/ | Appointment | Radiology | | | | 2019 | | | | | +--------+ + + + + | 04/19/ | Appointment | Radiology | | | | 2019 | | | | | +--------+ + + + + | 04/19/ | Appointment | Radiology | | | | 2019 | | | | | +--------+ + + + + documented as of this encounter Results VAS Ankle Brachial Index Resting (03/19/2020 9:57 AM PDT) + + | Specimen | + + | | + + + + + | Impressions | Performed At | + + + | Right: Normal ankle brachial and toe brachial indices with triphasic | [facility] | | waveforms. Left: Normal ankle brachial index and mildly | | | diminished toe brachial index. Triphasic waveforms. Ankle | | | Brachial Indices Categorization of Disease INDEX | | | EXTENT OF DISEASE > 1.0 Normal .90-.99 | | | Mild / Borderline .60-.89 Moderate .50-.59 | | | Severe < .49 Severe | | | Signed by: Sherine Retana, Paul Sign Date/Time: 03/19/2020 1:36 PM | | | | | + + + + + + | Narrative | Performed At | + + + | LOWER EXTREMITY ARTERIAL SCAN, ANKLE BRACHIAL INDEX CLINICAL | [facility] | | INFORMATION: Ulcer Left Foot/Hallux - Ongoing COMPARISON: None | | | PROCEDURE: Using continuous wave Doppler, segmental pressure | | | measurements in both arms and both legs. FINDINGS: (measurements | | | in millimeters of mercury systolic) Right Arm: 146 Left Arm: 141 | | | RIGHT Dorsalis Pedis: 197 Posterior Tibial: 210 OLINDA: 1.44 Toe: | | | 0.84 Waveforms: Triphasic LEFT Dorsalis Pedis: 139 Posterior | | | Tibial: 153 OLINDA: 1.05 Toe: 0.64 Waveforms: Triphasic | | + + + + + | Procedure Note | + + | Hansel, [id number] - 03/19/2020 1:40 PM PDT | | LOWER EXTREMITY ARTERIAL SCAN, ANKLE BRACHIAL INDEX | | | | CLINICAL INFORMATION: | | Ulcer Left Foot/Hallux - Ongoing | | | | COMPARISON: | | None | | | | PROCEDURE: | | Using continuous wave Doppler, segmental pressure measurements in both | | arms and both legs. | | | | FINDINGS: | | (measurements in millimeters of mercury systolic) | | Right Arm: 146 | | Left Arm: 141 | | | | RIGHT | | Dorsalis Pedis: 197 | | Posterior Tibial: 210 | | OLINDA: 1.44 | | Toe: 0.84 | | Waveforms: Triphasic | | | | LEFT | | Dorsalis Pedis: 139 | | Posterior Tibial: 153 | | OLINDA: 1.05 | | Toe: 0.64 | | Waveforms: Triphasic | | | | IMPRESSION: | | Right: Normal ankle brachial and toe brachial indices with triphasic | | waveforms. | | | | Left: Normal ankle brachial index and mildly diminished toe brachial | | index. Triphasic waveforms. | | | | Ankle Brachial Indices | | Categorization of Disease | | | | INDEX EXTENT OF DISEASE | | > 1.0 Normal | | .90-.99 Mild / Borderline | | .60-.89 Moderate | | .50-.59 Severe | | < .49 Severe | | | | | | | | Signed by: Sherine Retana, Paul | | Sign Date/Time: 03/19/2020 1:36 PM | + + + +---------+ + + | Performing | Address | City/State/Zipcode | Phone Number | | Organization | | | | + +---------+ + + | [facility] | | | | + +---------+ + + documented in this encounter Visit Diagnoses + + | Diagnosis | + + | Ulcer of left foot, unspecified ulcer stage (HCC) - Primary | + + documented in this encounter"
--- OUTSIDE RECORDS SUMMARY | ~2020-04-08 | XMS | Encounter Summary ---
Demographics + + + | Address | [address] | | | [place] [address] | + + + | Home Phone | | + + + | Preferred Language | Unknown | + + + | Marital Status | Single | + + + | Mu-Ism Affiliation | CHR | + + + [...] Team Providers + +------+ + | Care Fancy Needleworker Name | Role | Phone | + [...] Robert Garza - 12/27/2007 4:43 PM PDT [id number] MARIEL ROBLES [id number] [id number] Admission Date: 10/01/2007 Discharge Date: 10/05/2007 Staff Physician: Randall Esparza M.D. Principal Final Diagnosis: Left knee dislocation. Additional Diagnoses: Diabetes, hypertension, and hypercholesterolemia. Principal Procedure: External fixation, left knee. Reason for Admission: Mr. Cerda is a 47-year-old obese gentleman with diabetes who has been incarcerated approximately 24 years. He fell over wheelbarrow and sustained a left knee dislocation. This was reduced in [facility] on 09/26/07. By report, he had a postreduction angiogram that was negative. He was then placed in knee immobilizer and transferred to [facility], and accepted by Dr. Wagner on 09/21/07. [...] 10/05/07, he was discharged back to his retirement facility in good condition. Discharge Medication(s): 1. [...] Garza M.D. Randall Esparza M.D. PD / [id number] / [id number] / [id number] / [id number] Reviewed or Edited By Robert Garza MD on 10-17-2007 Electronically signed by Randall Esparza 12-27-2007 04:42:52 PM documented in this en counter Plan of Treatment Not on filedocumented as of this encounter Visit Diagnoses Not on filedocumented in this encounter"
--- OUTSIDE RECORDS SUMMARY | ~2020-04-08 | XMS | Clinical Summary ---
Demographics + + + | Address | [address] | | | [place] [address] | + + + | Home Phone | | + + + | Preferred Language | Unknown | + + + | Marital Status | Single | + + + | Restoration Affiliation | 1013 | + + + | Race | Unknown | + + + | Ethnic Group | Unknown | + + + Author + + + | Author | [facility] | | | and [place] | + + + | Organization | [facility] | | | [...] Team Providers + +------+ + | Care Beam Builder Name | Role | Phone | + +------+ + | Chery Carrion | PCP | | + +------+ + Allergies + + + + + + | Active Allergy | Reactions | Severity | Noted | Comments | | | | | Date | | + + + + + + | Latex | Itching, Rash, | Medium | 01/22/20 | No food related | | | Dermatitis | | 18 | allergies per pt. | | | | | | No food related | | | | | | allergies per pt. | | | | | | | + + + + + + Medications + + + +---------+------+------+-------+ | Medication | Sig | Dispensed | Refills | Star | End | Statu | | | | | | t | Date | s | | | | | | Date | | | + + + +---------+------+------+-------+ | permethrin | Apply topically | | 0 | 08/1 | | Activ | | (ELIMITE) 5% cream | once a week. Apply | | | 6/20 | | e | | | from head to toe, | | | 18 | | | | | leave on for 8 to 14 | | | | | | | | hours then rinse. | | | | | | | | May reapply in 7 | | | | | | | | days. | | | | | | + + + +---------+------+------+-------+ | betamethasone | Apply topically 2 | | 0 | 08/1 | | Activ | | dipropionate 0.05% | (two) times daily. | | | 6/20 | | e | | cream | Apply to affected | | | 18 | | | | | areas on the skin of | | | | | | | | left leg two times | | | | | | | | a day. | | | | | | + + + +---------+------+------+-------+ | oxyCODONE 10 MG | Take 1 tablet by | 15 | 0 | 10/0 | | Activ | | TABS | mouth every 6 (six) | tablet | | 3/20 | | e | | | hours as needed for | | | 18 | | | | | Pain. | | | | | | + + + +---------+------+------+-------+ +---+ + | | Additional | | | InformationPatient | | | not taking. Reported | | | on 03/19/2020 10:50 | | | AM | +---+ + + + +---------+----+------+------+-------+ | gabapentin | Take 300 mg by mouth | | 0 | 08/1 | | Activ | | (NEURONTIN) 300 mg | 3 (three) times | | | 6/20 | | e | | capsule | daily. | | | 18 | | | + + +---------+----+------+------+-------+ | | Take 1 tablet by | | 0 | 08/1 | | Activ | | lisinopril-hydrochlo | mouth daily. | | | 6/20 | | e | | rothiazide | | | | 18 | | | | (PRINZIDE,ZESTORETIC | | | | | | | | ) 20-12.5 MG per | | | | | | | | tablet | | | | | | | + + +---------+----+------+------+-------+ | hydrOXYzine | Take 25 mg by mouth | | 0 | 08/1 | | Activ | | pamoate (VISTARIL) | as needed for | | | 6/20 | | e | | 25 mg capsule | Itching. | | | 18 | | | + + +---------+----+------+------+-------+ | tamsulosin | Take 1 capsule by | 30 | 0 | 10/0 | | Activ | | (FLOMAX) 0.4 mg CAPS | mouth After dinner. | capsule | | 3/20 | | e | | | | | | 18 | | | + + +---------+----+------+------+-------+ | traMADol (ULTRAM) | Take 50 mg by mouth | | 0 | | | Activ | | 50 mg tablet | every 6 hours as | | | | | e | | | needed. | | | | | | + + +---------+----+------+------+-------+ | clopidogrel | Take 1 tablet by | 30 | 11 | 06/3 | 07/3 | Activ | | (PLAVIX) 75 mg | mouth Daily for 30 | tablet | | 0/20 | 0/20 | e | | tablet | days. | | | 20 | 20 | | + + +---------+----+------+------+-------+ Active Problems + + + | Problem | Noted Date | + + + | Discitis of lumbar region | 05/31/2018 | + + + | Acute posthemorrhagic anemia | 05/31/2018 | + + + | Constipation | 05/31/2018 | + + + | Coronary artery disease involving pechanga coronary artery of | 05/31/2018 | | pechanga heart without angina pectoris | | + + + | Anticoagulated with warfarin | 05/31/2018 | + + + | Atrial fibrillation (HCC), 05/18 | 05/18/2018 | + + + | Infective discitis | 05/13/2018 | + + + | Osteomyelitis of lumbar spine | 05/13/2018 | + + + | Infective endocarditis of aortic valve | 05/12/2018 | + + + | Acute cystitis without hematuria | 05/07/2018 | + + + | Type 2 diabetes mellitus without complication, with long-term | 05/04/2018 | | current use of insulin | | + + + | Hypoglycemia | 05/04/2018 | + + + | Suicide attempt by adequate means | 05/04/2018 | + + + | Benign essential hypertension | 05/04/2018 | + + + | Polycythemia | 05/04/2018 | + + + | Urinary retention | 05/04/2018 | + + + | Chronic bilateral thoracic back pain | 05/04/2018 | + + + | Current every day smoker | 05/04/2018 | + + + Encounters +--------+ + + + + | Date | Type | Specialty | Care Team | Description | +--------+ + + + + | 03/27/ | Telephone | Vascular Surgery | Fuentes Ahumada MD | Other (Returning | | 2020 | | | | call) | +--------+ + + + + | 03/19/ | Office | Vascular Surgery | Fuentes Ahumada MD | Gangrene of toe of | | 2019 | Visit | | | left foot (HCC) | | | | | | (Primary Dx); PAD | | | | | | (peripheral artery | | | | | | disease) (HCC); | | | | | | Other secondary | | | | | | hypertension; | | | | | | Dyslipidemia, goal | | | | | | LDL below 70; Atrial | | | | | | fibrillation, | | | | | | unspecified type | | | | | | (HCC); Aortic valve | | | | | | replaced; Coronary | | | | | | artery disease | | | | | | involving pechanga | | | | | | coronary artery of | | | | | | pechanga heart without | | | | | | angina pectoris; | | | | | | Smoking hx | +--------+ + + + + | 03/19/ | Hospital | Radiology | | Ulcer of left foot, | | 2019 | Encounter | | | unspecified ulcer | | | | | | stage (HCC) | +--------+ + + + + | 02/28/ | Telephone | Vascular Surgery | Fuentes Ahumada MD | Consult | | 2019 | | | | | +--------+ + + + + | 02/27/ | Telephone | Vascular Surgery | Kunal Ford MD | Referral | | 2020 | | | | | +--------+ + + + + from Last 3 Months Immunizations + + + + | Name | Administration Dates | Next Due | + + + + | INFLUENZA PF | 06/22/2018 | | | QUAD(PED/ADOL/ADULT) | | | | ,PSKT or VIAL | | | + + + + | PNEUMOCOCCAL | 05/05/2018 | | | POLYSACCHARIDE | | | | 23-VALENT (PPSV23) | | | + + + + Family History + + +------+ + | Medical History | Relation | Name | Comments | + + +------+ + | Diabetes | Father | | | + + +------+ + | Diabetes | Mother | | | + + +------+ + + +------+--------+ + | Relation | Name | Status | Comments | + +------+--------+ + | Father | | | | + +------+--------+ + | Father | | | | + +------+--------+ + | Mother | | | | + +------+--------+ + | Mother | | | | + +------+--------+ + Social History + +-------+ +--------+------+ | Tobacco Use | Types | Packs/Day | Years | Date | | | | | Used | | + +-------+ +--------+------+ | Former Smoker | | 1 | | | + +-------+ +--------+------+ + +---+---+---+ | Smokeless Tobacco: | | | | | Never Used | | | | + +---+---+---+ + + | Comments: pt not ready, pt anxious and has difficult coping while in hospital | + + + + + | Sex Assigned at | Date Recorded | | | | + + + | Not on file | | + + + Last Filed Vital Signs + + + + + | Vital Sign | Reading | Time Taken | Comments | + + + + + | Blood Pressure | 147/86 | 03/19/2020 10:49 AM | | | | | PDT | | + + + + + | Pulse | 59 | 03/19/2020 10:49 AM | | | | | PDT | | + + + + + | Temperature | 36.2 C (97.2 F) | 07/20/2018 2:43 PM | | | | | PDT | | + + + + + | Respiratory Rate | 18 | 07/20/2018 2:43 PM | | | | | PDT | | + + + + + | Oxygen Saturation | 98% | 03/19/2020 10:49 AM | | | | | PDT | | + + + + + | Inhaled Oxygen | - | - | | | Concentration | | | | + + + + + | Weight | 96.2 kg (212 lb) | 07/20/2018 2:43 PM | | | | | PDT | | + + + + + | Height | 175.3 cm (5' 9") | 07/20/2018 2:43 PM | | | | | PDT | | + + + + + | Body Mass Index | 31.31 | 07/20/2018 2:43 PM | | | | | PDT | | + + + + + Plan of Treatment +--------+ + + + [...] | | +--------+ + + + + + + + + + | Health Maintenance | Due Date | Last | Comments | | | | Done | | + + + + + | Diabetic Eye Exam | | | | | | 7 | | | + + + + + | Diabetic Foot Exam | | | | | | 7 | | | + + + + + | Colorectal Cancer | | | | | Screening | 9 | | | | (Colonoscopy) | | | | + + + + + | Vaccine: Zoster (1 | | | | | of 2) | 9 | | | + + + + + | Statin Therapy | | | | | (optimal intensity) | 7 | | | + + + + + | Hemoglobin A1c | | 05/17/20 | | | Screening | 8 | 18, | | | | | 05/05/20 | | | | | 18 | | + + + + + | Vaccine: Influenza | | 06/22/20 | | | (#1) | 0 | 19, | | | | | 06/22/20 | | | | | 18, | | | | | 07/27/20 | | | | | 17, | | | | | Addition | | | | | al | | | | | history | | | | | exists | | + + + + + | Vaccine: | | 01/20/20 | | | Dtap/Tdap/Td (3 - | 8 | 18, | | | Td) | | 01/18/20 | | | | | 15 | | + + + + + | Vaccine: | Completed | 05/05/20 | | | Pneumococcal 19-64 | | 18 | | + + + + + | Hepatitis C | Completed | 05/16/20 | | | Screening | | 18 | | + + + + + Implants + +------+------+ +--------+--------+--------+ | Implanted | Type | Area | Manufacture | Device | Shelf | Model | | | | | r | | Expira | / | | | | | | Identi | tion | Serial | | | | | | fier | Date | / Lot | + +------+------+ +--------+--------+--------+ | Valve Aort Pericard Mgnaes 23 | | | PARRA | | 01/25/ | [id number] | | - [id number]: Qty: 1 | | | LIFESCIENCE | | 2021 | X | | on 05/16/2018 by Alessandro | | | Mary KOCH - | | | /[id number] | | MD Juan C | | | EDLMary | | | 24 / | + +------+------+ +--------+--------+--------+ Procedures + +--------+ + + + | Procedure Name | Priori | Date/Time | Associated Diagnosis | Comments | | | ty | | | | + +--------+ + + + | VAS ANKLE BRACHIAL | Routin | 03/19/2020 | Ulcer of left | Results for this | | INDEX RESTING | e | 9:57 AM | foot, unspecified | procedure are in the | | | | PDT | ulcer stage (HCC) | results section. | + +--------+ + + + from Last 3 Months Results VAS Ankle Brachial Index Resting (03/19/2020 [...] | Procedure Note | + + | [facility], [id number] - 03/19/2020 1:40 PM PDT | | [...] | | | | Signed by: Sherine Retana Matthew | | Sign Date/Time: 03/19/2020 1:36 PM | + + + +---------+ + + | Performing | Address | City/State/Zipcode | Phone Number | | Organization | | | | + +---------+ + + | [facility] | | | | + +---------+ + + from Last 3 Months Insurance + +--------+ +--------+ +---------+--------+ | Payer | Benefi | Subscriber | Effect | Phone | Address | Type | | | t Plan | ID | corrine | | | | | | / | | Dates | | | | | | Group | | | | | | + +--------+ +--------+ +---------+--------+ | [employer] | [employer] | [id number] | | [phone] | | Medica | | MEDICAID HMO | HEALTH | | [phone]-[id number] | 1 | | id | | | MDCD | | esent | | | | | | [place] | | | | | | + +--------+ +--------+ +---------+--------+ | [employer] | [employer] | [id number] | 02/26/20 | [phone] | | Medica | | MEDICAID HMO | HEALTH | | 20-Pre | 1 | | id | | | MDCD | | sent | | | | | | [place] | | | | | | + +--------+ +--------+ +---------+--------+ + +--------+ +--------+ + + | Guarantor Name | Accoun | Relation to | Date | Phone | Billing Address | | | t Type | Patient | of | | | | | | | | | | + +--------+ +--------+ + + | José Miguel Cerda | Person | Self [birth year] | [address] | | | al/Fam | | 1960 | [phone] | [place], [place] | | | robi | | | 9 (Home) | [phone] | + +--------+ +--------+ + + | José Miguel Cerda | Person | Self [birth year] | [address] | | | al/Fam | | 1960 | [phone] | [place], [place] | | | robi | | | 9 (Home) | [phone] | + +--------+ +--------+ + + Advance Directives + + + + + | Type | Date Recorded | Patient | Explanation | | | | Therapeutic Activities Services Worker | | + + + + + | Power of | | | | | Clinical Counselor | | | | + + + + + | Advance | | | | | Directive | | | | + + + + +
--- OUTSIDE RECORDS SUMMARY | ~2020-04-08 | XMS | Encounter Summary ---
Demographics + + + | Address | [address] | | | [place] [address] | + + + | Home Phone | | + + + | Preferred Language | Unknown | + + + | Marital Status | Single | + + + | Jain Affiliation | CHR | + + + | Race | White | + + + | Ethnic Group | Not or | + + + Author + + + | Author | [facility] | + + + | Organization | [facility] | + + + | Address | Unknown | + + + | Phone | Unavailable | + + + Support + + +---------+ + | Name | Relationship | Address | Phone | + + +---------+ + | Kaycee Ferraro | ECON | Unknown | | + + +---------+ + Care Team Providers + +------+ + | Care Medical Insurance Biller Name | Role | Phone | + +------+ + | Chery Carrion PA-C | PCP | | + +------+ + Reason for Visit +--------+ + | Reason | Comments | +--------+ + | Trauma | | +--------+ + AUTH/CERT +--------+--------+ + + + + | Status | Reason | Specialty | Diagnoses / | Referred By | Referred To | | | | | Procedures | Contact | Contact | +--------+--------+ + + + + | | | | | | | +--------+--------+ + + + + Encounter Details +--------+ + + + + | Date | Type | Department | Care Team | Description | +--------+ + + + + | 01/19/ | Hospital | [facility] [address] | [place] | | | 2018 - | Encounter | [address] | [place], [place], | | | | | [place] | [address] | | | 01/25/ | | [place] [address] | [address] | | | 2017 | | [phone] | [place], [place] | | | | | | [address] | | | | | | [phone] | | | | | | | | | | | | Ryne Moreland MD | | | | | | [address] | | | | | | [address] | | | | | | [place], [place] | | | | | | [address] | | | | | | [phone] | | | | | | | [...] + + documented as of this encounter Last Filed Vital Signs + + + + + | Vital Sign | Reading | Time Taken | Comments | + + + + + | Blood Pressure | 151/88 | 01/25/2018 7:36 AM | | | | | PDT | | + + + + + | Pulse | 82 | 01/25/2018 7:36 AM | | | | | PDT | | + + + + + | Temperature | 37 C (98.6 F) | 01/25/2018 7:36 AM | | | | | PDT | | + + + + + | Respiratory Rate | 18 | 01/25/2018 7:36 AM | | | | | PDT | | + + + + + | Oxygen Saturation | 93% | 01/25/2018 7:36 AM | | | | | PDT | | + + + + + | Inhaled Oxygen | - | - | | | Concentration | | | | + + + + + | Weight | 107.5 kg (237 lb) | 01/22/2018 3:54 PM | | | | | PDT | | + + + + + | Height | 172.7 cm (5' 8") | 01/22/2018 3:54 PM | | | | | PDT | | + + + + + | Body Mass Index | 36.04 | 01/22/2018 3:54 PM | | | | | PDT | | + + + + + documented in this encounter Functional Status + + + [...] documented as of this encounter Discharge Summaries Argelia Gomes AGACNP - 01/25/2018 10:37 AM PDTFormatting of this note might be differe nt from the original. [facility] DISCHARGE SUMMARY & INTERDISCIPLINARY INSTRUCTIONS Patient: Travis Floyd CSN: [id number] Admission Date: 01/19/2018 Discharge Date: 01/25/2018 Attending Physician: Ryne Moreland MD PCP: Chery Carrion PA-C Service: [facility] Orthopaedics & Rehabilitation Diagnoses Principal Final Diagnosis: 1.Right hip femoral neck fracture. Additional Diagnoses: Patient Active Problem List: Wound infection Knee dislocation Closed right hip fracture (HCC) Closed fracture of right hip, initial encounter ([facility]) Procedures 01/21/2018 Right Hip Hemiarthroplasty Brief Hospital Course Travis Floyd is an 57 y.o. male admitted for the procedure(s) described above. The inpa tient stay related to this procedure(s) took an uncomplicated perioperative course and the p atient was followed closely by the attending providers, resident providers, and medical/nurs ing staff. Post operatively, the patient was admitted to the hospital for convalescent care . Pain control was managed with iv/po pain medication as needed. The Patient was given 24h rs of IV antibiotics post-operatively. For DVT prophylaxis the patient was started on Aspiri in and SCDs and KRISTINA hose were also used. The patient made appropriate gains toward activit y and functional goals while an inpatient, working daily with physical therapy. While on th e hospital floor, the patient tolerated oral intake sufficient to maintain nutrition and hyd ration. The surgical wound remained clean, dry, and intact without signs concerning for infe ction. The patient was felt appropriate for discharge to a senior care facility, and t he patient and/or family members agree with this course of action. Diet Diabetic (Consistent Carbohydrate) Diabetic diet (Consistent Carbohydrate)- You should be careful to control your daily inta ke of carbohydrates and ensure that you are consuming the same amount of carbohydrates each day. Your health care provider will work with you to determine the appropriate amount of ca rbohydrates your body needs. Wound Care -Leave CELSO dressing intact until battery light begins to flash or you reach post operative day #7, then remove. You can leave wound open to air or cover as you desire. You may shower immediately. Do not expose battery pack to direct water stream.-If you have sutures or stap les, do not get your wound wet for 3-5 days after your operation. Sponge bath or cover the i ncision with a waterproof bandage. Keep your incision covered with a dressing until there is no discharge on bandage.- Once wound is closed (no drainage), you may shower. Let water run over wound. Pat dry. Do not scrub or soak wound in water.- Avoid using lotions, powders, oi ls, or ointments on your incision.- DO NOT let anyone start you on antibiotics if they suspe ct your wound is infected. Call [facility] Orthopedics first at [phone]. Activity Weight bear as tolerated on both lower extremities. Restrictions: Posterior hip precautions on operative side (no hip flexion >90 degrees, no c rossing your legs, no turning your foot towards the middle of the body (internal rotation). Condition on Discharge Stable Follow-Up Appointments ORTHOPEDICS OUTPATIENT CLINIC: Staff at skilled facility may remove Right hip sutures or syd with wound checks in 2wee ks. Please see Chaz Jensen MD in [place] for follow up orthopaedic care. [address], [place] [address] office PCP: As needed for any medical concerns not related to your surgery. Medication List START taking these medications acetaminophen 500 mg Tab Commonly known as: TYLENOL Take 2 tablets by mouth three times daily. bisacodyl 10 mg Supp Commonly known as: DULCOLAX Unwrap and insert 1 suppository rectally once daily as needed (2nd line for no BM in past 2 days or if no response to MIRALAX or if patient unable to tolerate oral). cyclobenzaprine 5 mg Tab Commonly known as: FLEXERIL Take 1 tablet by mouth every eight hours as needed for muscle spasms. Do not use longer kike n 2-3 weeks. gabapentin 400 mg Cap Commonly known as: NEURONTIN Take 2 capsules by mouth three times daily. Replaces: NEURONTIN 800 mg Tab hydroCHLOROthiazide 25 mg Tab Commonly known as: HYDRODIURIL Take 1 tablet by mouth once daily. Indications: hypertension oxyCODONE (immediate release) 5 mg Tab Commonly known as: ROXICODONE Take 1-3 tablets by mouth every three hours as needed for moderate pain. polyethylene glycol 17 gram Pwpk Commonly known as: MIRALAX Mix 1 packet and take orally once daily as needed (1st line - for no BM for 2 days). senna-docusate 8.6-50 mg Tab Commonly known as: SENOKOT S Take 1 tablet by mouth two times daily. CHANGE how you take these medications insulin glargine 100 unit/mL Soln Commonly known as: LANTUS U-100 INSULIN Inject 30 Units under the skin (SUBC) two times daily. Indications: type 2 diabetes mellitu s What changed: how much to take additional instructions insulin lispro 100 unit/mL Soln Commonly known as: HUMALOG Inject 1-16 Units under the skin (SUBC) four times daily. Mealtime Correction Dose: CBG-->C ORRECTION <70--->Follow hypoglycemia protocol. 71-140 --->No Correction. 141-200--->4 units; 201-250--->6 units; 251-300--->10 units; 301-350--->12 units; 351-400--->16 units; >400---> Call MD. What changed: how much to take when to take this additional instructions STOP taking these medications amLODIPine 5 mg Tab Commonly known as: NORVASC gabapentin 300 mg Cap Commonly known as: NEURONTIN losartan-hydrochlorothiazide 50-12.5 mg Tab Commonly known as: HYZAAR NEURONTIN 800 mg Tab Generic drug: gabapentin Replaced by: gabapentin 400 mg Cap [facility] Orthopaedic Service Pain Policy At the 6-week post-operative chad, pain management will be reassessed and pain management r ecommendations may be modified by the discretion of the Provider. At the 3-month post-operative chad, the patient will be referred to pain management for bishnu oing pain of poly-trauma, referred to PCP, or transitioned to Tylenol. All refills must be requested through a pharmacy. The pharmacy may then either call the o ffice with a request or fax the request to clinic. Patients must give the Outpatient Clinic a minimum of 72 hours to refill or deny narcotic p rescription from the time that they receive request from pharmacy. Requests received after 3pm will not be processed until the following business day. Prescriptions will not be available through our office after-hours, weekends, and holidays. NO EXCEPTIONS. Deep Vein Thrombosis (Leg Blood Clot) Prevention DVT prophylaxis: You are at increased risk of forming a blood clot following your joint replacement. - We have recommended that you take Aspirin for 6 weeks following your surgery to decrease this risk. - See discharge prescriptions for administration instructions. - Call Orthopedic Clinic at [phone] if any persistent, localized swelling that does no t improve with time or elevation or if you have any persistent calf pain, shortness of breat h or chest pain. Contact Your Physician When to Call: 1. Difficulty breathing, chest pain or unusual shortness of breath; 2. Excessive bleeding, drainage, redness, swelling at the operative site (if the wound appe ars to be worse instead of better each day); 3. Fevers, chills, increased pain that is not relieved by pain medications; 4. Persistent nausea or vomiting; 5. Other specific concerns; Please call: - during business hours (8:00am - 4:30pm); - if after hours and ask for the orthopaedic surgery resident floorperson. Additional Post-Op Instructions / What to Expect CONSTIPATION - To prevent constipation you have been advised to purchase over the counter m edications that will help you have a bowel movement. These medications include senna and candy alax. Take these medications together until you have a bowel movement. Once you reach your g oal, you can reduce or stop taking one or both medications. If you have loose or excessive s tools stop taking the medication. Also keep in mind that eating a well balanced diet with pl enty of fruits and vegetables; proper hydration; and walking can also help encourage bowel m ovements. -Apply ice over the surgical site for 20 minutes at a time as needed for pain. -Avoid alcohol and smoking during the healing process. -You may experience numbness that is usually temporary. -There will be bruising and swelling that should improve in the first 2 weeks. -To reduce likelihood of falling at home, remove throw rugs, loose wires or other objects f rom floor and leave some lights on at night. - Elevate your extremity whenever possible to improve pain and swelling. Pain Management Opiate medications. Per policy, you will have only been written for 7 days of opiates upon discharge. It is best for your health to taper these medications gradually over the next 7 days. We recommend extend the time interval between the doses to taper. The alternative w ould be to maintain the same time interval, but decrease the dose. Example Taper: DOSE every 4 hours at time of discharge Day 1: DOSE every 4 hr Days 2: DOSE every 5 hours Days 3 - 4: DOSE every 6 hours Day 4 - 5: DOSE every 8 hours Day 6: DOSE every 12 hours Day 7: infrequent dose, only as needed, no more than once a day or with PT - You are advised to not drive, operate heavy equipment, or consume alcohol while on prescr iption narcotic pain medication. - Take a stool softener while taking narcotic pain medication in order to prevent constipat ion. - If you are running out of pain medication and feel that you will need more, call [phone] during business hours in order to get a new prescription. Please allow 48 hours for ref ills to be processed. - Schedule II narcotics can NOT be called in to a pharmacy. Please arrange for someone to p ick up your prescription or allow additional time for our clinic to mail you requested refil l. - On-call (after hours) MDs are not permitted to prescribe narcotic pain medications. - Prescriptions will not be available through our office on weekends or holidays. - Don't take Non-steroidal anti-inflammatory drugs (for example: Ibuprofen/Advil/Aleve) unt il approved by your orthopedic provider. Other Discharge Orders & Instructions Certification of Medical Necessity for Ongoing Care in a SNF "I certify that post-hospital inpatient senior care facility care is medically necessar y on a continuing basis for treatment of the same condition for which inpatient acute hospit al care was received." 1. JENNIFER () OFFICER TO FOLLOW 2. PPD PER FACILITY PROTOCOL upon arrival 3. PHYSICAL THERAPY evaluate and treat twice daily 4. OCCUPATIONAL THERAPY evaluate and treat 5. SPEECH THERAPY evaluate and treat as appropriate. 6. VITAL SIGNS per protocol. 7. CBG ac/hs Insulin sliding scale Insulin Mealtime Correction Dose: AGGRESSIVE SCALE CBG-->CORRECTION <70--->Follow hypoglycemia protocol. 71-140 --->No Correction. 141-200--->4 units; 201-250--->6 units; 251-300--->10 units; 301-350--->12 units; 351-400--->16 units; >400--->Call MD. Vital Signs on Discharge: Ht 1.727 m (5' 8"), Wt 107.5 kg (237 lb), BP 151/88, Pulse 82, Te mperature 37 C (98.6 F), RR 18, SpO2 93%, BMI 36.04 kg/(m^2). Condition on Discharge: Improved Discharging Patient To: [facility] Facility, [facility] Date and Time of Discharge Summary Completion: 01/25/2018, 10:37 AM Discharging Provider: WILFRED Wiley Discharging Attending: Ryne Moreland MD Thank you for the opportunity to take care of Travis Floyd during this inpatient stay, it has been our pleasure. WILFRED Wiley [facility] Department of Orthopaedics & Rehabilitation [address] [place] [address] Mail Code: OP31 [facility] [address] documented in t his encounter Medications at Time of Discharge + + + +---------+ + + | Medication | Sig | Dispensed | Refills | Start | End Date | | | | | | Date | | + + + +---------+ + + | acetaminophen 500 | Take 2 tablets by | | 0 | 01/26/20 | | | mg oral tablet | mouth three times | | | 18 | | | | daily. | | | | | + + + +---------+ + + | bisacodyl 10 mg | Unwrap and insert 1 | 12 | 0 | 01/26/20 | | | rectal suppository | suppository rectally | supposito | | 18 | | | | once daily as | ry | | | | | | needed (2nd [...] tolerate oral). | | | | | + + + +---------+ + + | cyclobenzaprine 5 | Take 1 tablet by | 24 | 0 | 01/26/20 | | | mg oral tablet | mouth every eight | tablet | | 18 | | | | hours as needed for | | | | | | | muscle spasms. Do | | | | | | | not use longer than | | | | | | | 2-3 weeks. | | | | | + + + +---------+ + + | gabapentin 400 mg | Take 2 capsules by | 130 | 0 | 01/26/20 | | | oral capsule | mouth three times | capsule | | 18 | | | | daily. | | | | | + + + +---------+ + + | | Take 1 tablet by | 30 | 0 | 01/26/20 | | | hydroCHLOROthiazide | mouth once daily. | tablet | | 18 | | | 25 mg oral | Indications: | | | | | | tabletIndications: | hypertension | | | | | | hypertension | | | | | | + + + +---------+ + + | insulin glargine | Inject 30 Units | 10 mL | 0 | 01/26/20 | | | (LANTUS U-100 | under the skin | | | 18 | | | INSULIN) 100 unit/mL | (SUBC) two times | | | | | | subcutaneous | daily. Indications: | | | | | | solutionIndications: | type 2 diabetes | | | | | | type 2 diabetes | mellitus | | | | | | mellitus | | | | | | + + + +---------+ + + | insulin lispro 100 | Inject 1-16 Units | 10 mL | 0 | 01/26/20 | | | unit/mL | under the skin | | | 18 | | | subcutaneous | (SUBC) four times | | | | | | solution | daily. Mealtime | | | | | | | Correction | | | | | | | Dose:CBG-->CORRECTIO | | | | | | | N<70--->Follow | | | | | | | hypoglycemia | | | | | | | protocol.71-140 | | | | | | | --->No | | | | | | | [...] | MD. | | | | | + + + +---------+ + + | oxyCODONE | Take 1-3 tablets by | 150 | 0 | 01/26/20 | | | (immediate release) | mouth every three | tablet | | 18 | | | 5 mg oral tablet | hours as needed for | | | | | | | moderate pain. | | | | | + + + +---------+ + + | polyethylene | Mix 1 packet and | 14 | 0 | 01/26/20 | | | glycol 17 gram oral | take orally once | packet | | 18 | | | powder in packet | daily as needed (1st | | | | | | | line - for no BM | | | | | | | for 2 days). | | | | | + + + +---------+ + + | senna-docusate | Take 1 tablet by | | 0 | 01/26/20 | | | 8.6-50 mg oral | mouth two times | | | 18 | | | tablet | daily. | | | | | + + + +---------+ + + documented as of this encounter Progress Notes Argelia Gomes AGACNP - 01/25/2018 9:41 AM PDTFormatting of this note might be agustin nt from the original. Orthopaedic Surgery Progress Note Date: 01/25/2018 Hospital Day: 6 Orthopaedic Attending: Ryne Moreland MD Diagnosis(es): 1. Right hip femoral neck fracture. Orthopaedic Procedure(s) & Date(s): 01/20/2018: Hip hemiarthroplasty for fracture Assessment & Plan: Travis Floyd is a 57 y.o.M with the orthopaedic diagnoses and procedur es listed above. Today's specific concerns include: Discharge to [facility] Follow up with [place] in 6weeks Care Protocol Items: 1. Activity: 1. Weight bearing: full weight bearing, right lower extremity 2. ROM: Posterior hip precautions 2. VTE prophylaxis: high risk, lovenox SC 40mg daily or by weight, sequential compression d evices, will discharge with ASA EC 81mg BID [id number] 3. Pain management: oral analgesia and IV analgesia, wean as possible 4. Antibiotics: ceFAZolin, for 24 hours perioperatively 5. Special Concerns: CELSO dressing off in 7 days Sunday 01/28 case managment for discharge planning 6. Dressings/Drains: DRESSING CARE -Leave CELSO dressing intact until battery light begins to flash or you reach post operative day #7, then remove. You can leave wound open to air or cover as you desire. You may shower immediately. Do not expose battery pack to direct water stream. - Avoid using lotions, powders, oils, or ointments on your incision. - DO NOT let anyone start you on antibiotics if they suspect your wound is infected. Call [facility] Orthopedics first at [phone]. Leave dressing in place until your follow up appointment, or at a minimum, 7-10 days after leaving the hospital. After that time, you may change your dressing daily and check the inc ision for any signs of infection, such as: redness, swelling, unusual pain, or increasing d rainage. Your incision should be kept clean and dry. If you have sutures or syd, do not get your wound wet for 5-7 days after your operation: either sponge bath or cover the incis ion with a waterproof bandage. You may shower, but please do not scrub at the dressing/surg ical site. Please do not soak the dressing in pool, tub, or jacuzzi. Keep your incision co ross with a dressing until there is no discharge on bandage. 7. Dispo/Discharge: Anticipate discharge today. 8. Follow-up: Sutures may be removed by SNF provider in ~2wks with wound check. Incision m ay be SRIRAM if no drainage, steristrips or dressing as needed. Please call Dr Willy Jensen [address] [place] for future f ollow up in 6weeks Subjective: "I'm ready to go when they show up. Can we please make sure I get my meds before I leave f or the trip?" Objective: 24 hour Vitals: Temp Av C (98.6 F) Min: 36.5 C (97.7 F) Max: 37.4 C (99.3 F) Systolic (24hrs), Av , Min:129 , Max:158 Diastolic (24hrs), Av, Min:54, Max:91 Pulse Av.4 Min: 82 Max: 101 SpO2 Av.2 % Min: 93 % Max: 99 % Lab Results Component Value Date HCT 42.6 01/24/2018 HCT 42.3 01/22/2018 HCT 46.6 01/21/2018 Lab Results Component Value Date WBC 11.78 01/24/2018 HB 13.5 01/24/2018 HCT 42.6 01/24/2018 PLT 183 01/24/2018 MCV 72.1 01/24/2018 RDW 43.8 01/24/2018 Lab Results Component Value Date NA 133 01/24/2018 K 3.9 01/24/2018 CL 94 01/24/2018 BICARB 27 01/24/2018 BUN 13 01/24/2018 EGFRAFRICAN >60 01/24/2018 EGFRNONAFR >60 01/24/2018 CR 0.76 01/24/2018 GLU 106 01/25/2018 CA 8.7 01/24/2018 ANIONGAP 12 01/24/2018 Intake/Output Summary (Last 24 hours) at 01/25/18 0941 Last data filed at 01/24/18 1324 Gross per 24 hour Intake 600 ml Output 400 ml Net 200 ml Exam: General: appropriate, oriented RIGHT LOWER EXTREMITY: Inspection: Thigh ecchymotic around incision/old drain site, Rt hip CELSO dressing in place Palpation: Non tender to palpation Motor: Wiggles toes and able to dorsi/plantar flex Sensory: grossly intact to light touch, medial, lateral, dorsal, 1st dorsal web space, p lantar has neuropathy baseline with reduced sensation primarily bottom of foot Vascular: palpable dorsalis pedis, palpable posterior tibial, digits warm & well per fused, capillary refill < 2 seconds WILFRED Wiley Orthopaedic Trauma Surgery Pager [phone] signed by WILFRED Blair at 01/25/2018 9:49 AM PDTShat Argelia hunter AGACNP - 01/24/2018 11:16 AM PDTFormatting of this note might be different fr om the original. Orthopaedic Surgery Progress Note Date: 01/24/2018 Hospital Day: 5 Orthopaedic Attending: Ryne Moreland MD Diagnosis(es): 1. Right hip femoral neck fracture. Orthopaedic Procedure(s) & Date(s): 01/20/2018: Hip hemiarthroplasty for fracture Assessment & Plan: Travis Floyd is a 57 y.o.M with the orthopaedic diagnoses and procedur es listed above. Today's specific concerns include: Mobilize with PT Dispo planning per Care Protocol Items: 1. Activity: 1. Weight bearing: full weight bearing, right lower extremity 2. ROM: Posterior hip precautions 2. VTE prophylaxis: high risk, lovenox SC 40mg daily or by weight, sequential compression d evices 3. Pain management: oral analgesia and IV analgesia, wean as possible 4. Antibiotics: ceFAZolin, for 24 hours perioperatively 5. Special Concerns: CELSO dressing off in 7 days case managment for discharge planning 6. Dressings/Drains: DRESSING CARE -Leave CELSO dressing intact until battery light begins to flash or you reach post operative day #7, then remove. You can leave wound open to air or cover as you desire. You may shower immediately. Do not expose battery pack to direct water stream. - Avoid using lotions, powders, oils, or ointments on your incision. - DO NOT let anyone start you on antibiotics if they suspect your wound is infected. Call [facility] Orthopedics first at [phone]. Leave dressing in place until your follow up appointment, or at a minimum, 7-10 days after leaving the hospital. After that time, you may change your dressing daily and check the inc ision for any signs of infection, such as: redness, swelling, unusual pain, or increasing d rainage. Your incision should be kept clean and dry. If you have sutures or syd, do not get your wound wet for 5-7 days after your operation: either sponge bath or cover the incis ion with a waterproof bandage. You may shower, but please do not scrub at the dressing/surg ical site. Please do not soak the dressing in pool, tub, or jacuzzi. Keep your incision co ross with a dressing until there is no discharge on bandage. 7. Dispo/Discharge: Anticipate discharge today or tomorrow 8. Follow-up: Sutures may be removed by SNF provider in ~2wks with wound check. Incision m ay be VACUUM PAN TENDER if no drainage, steristrips or dressing as needed. Please call the clinic to make a follow up appointment in approximately 6 weeks with [facility]THO [facility], Subjective: "I'm ready whenever they find a place for me to go." Objective: 24 hour Vitals: Temp Av.9 C (98.4 F) Min: 36.5 C (97.7 F) Max: 37.4 C (99.3 F) Systolic (24hrs), Av , Min:120 , Max:175 Diastolic (24hrs), Av, Min:58, Max:91 Pulse Av.4 Min: 81 Max: 84 SpO2 Av.2 % Min: 91 % Max: 100 % Lab Results Component Value Date HCT 42.3 01/22/2018 HCT 46.6 01/21/2018 HCT 56.1 01/20/2018 Lab Results Component Value Date WBC 13.23 01/22/2018 HB 13.1 01/22/2018 HCT 42.3 01/22/2018 PLT 161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 following injuries and problems: Patient Active Problem List Diagnosis Wound infection Knee dislocation Closed right hip fracture (HCC) Closed fracture of right hip, initial encounter ([facility]) To OR today with orthopedics. Will complete a tertiary exam post-op. Bull Fuentes MD, MPH Attending Surgeon Trauma, Critical Care & Acute Care Surgery Formerly [facility] [phone] documented in this encounter Plan of Treatment + +------+--------+ + + | Name | Type | Priori | Associated Diagnoses | Order Schedule | | | | ty | | | + +------+--------+ + + | TYPE AND SCREEN | Lab | Urgent | | Lab Add Ons for 1 | | | | | | Occurrences starting | | | | | | 01/19/2018 until | | | | | | 01/19/2018 | + +------+--------+ + + documented as of this encounter Procedures + +--------+ + + + | Procedure Name | Priori | Date/Time | Associated Diagnosis | Comments | | | ty | | | | + +--------+ + + + | CAPILLARY BLOOD | Routin | 01/25/2018 | Closed fracture of | Results for this | | GLUCOSE (NO CHG), | e | 11:26 AM | right hip, initial | procedure are in the | | POC | | PDT | encounter ([facility]) | results section. | + +--------+ + + + | CAPILLARY BLOOD | Routin | 01/25/2018 | Closed fracture of | Results for this | | GLUCOSE (NO CHG), | e | 7:34 AM | right hip, initial | procedure are in the | | POC | | PDT | encounter ([facility]) | results section. | + +--------+ + + + | CAPILLARY BLOOD | Routin | 01/25/2018 | Closed fracture of | Results for this | | GLUCOSE (NO CHG), | e | 6:33 AM | right hip, initial | procedure are in the | | POC | | PDT | encounter ([facility]) | results section. | + +--------+ + + + | CAPILLARY BLOOD | Routin | 01/24/2018 | Closed fracture of | Results for this | | GLUCOSE (NO CHG), | e | 9:10 PM | right hip, initial | procedure are in the | | POC | | PDT | encounter ([facility]) | results section. | + +--------+ + + + | CAPILLARY BLOOD | Routin | 01/24/2018 | Closed fracture of | Results for this | | GLUCOSE (NO CHG), | e | 4:56 PM | right hip, initial | procedure are in the | | POC | | PDT | encounter ([facility]) | results section. | + +--------+ + + + | CAPILLARY BLOOD | Routin | 01/24/2018 | Closed fracture of | Results for this | | GLUCOSE (NO CHG), | e | 12:25 PM | right hip, initial | procedure are in the | | POC | | PDT | encounter (HCC) | results section. | + +--------+ + + + | CBC (HEMOGRAM) ONLY | Urgent | 01/24/2018 | | Results for this | | | | 11:16 AM | | procedure are in the | | | | PDT | | results section. | + +--------+ + + + | BASIC METABOLIC SET | Urgent | 01/24/2018 | | Results for this | | (NA, K, CL, TCO2, | | 11:16 AM | | procedure are in the | | BUN, CR, GLU, CA) | | PDT | | results section. | + +--------+ + + + | CBC ONLY | Urgent | 01/24/2018 | | Results for this | | | | 11:16 AM | | procedure are in the | | | | PDT | | results section. | + +--------+ + + + | CAPILLARY BLOOD | Routin | 01/24/2018 | Closed fracture of | Results for this | | GLUCOSE (NO CHG), | e | 7:36 AM | right hip, initial | procedure are in the | | POC | | PDT | encounter ([facility]) | results section. | + +--------+ + + + | CAPILLARY BLOOD | Routin | 01/24/2018 | Closed fracture of | Results for this | | GLUCOSE (NO CHG), | e | 6:04 AM | right hip, initial | procedure are in the | | POC | | PDT | encounter ([facility]) | results section. | + +--------+ + + + | CAPILLARY BLOOD | Routin | 01/23/2018 | Closed fracture of | Results for this | | GLUCOSE (NO CHG), | e | 8:36 PM | right hip, initial | procedure are in the | | POC | | PDT | encounter ([facility]) | results section. | + +--------+ + + + | CAPILLARY BLOOD | Routin | 01/23/2018 | Closed fracture of | Results for this | | GLUCOSE (NO CHG), | e | 4:42 PM | right hip, initial | procedure are in the | | POC | | PDT | encounter ([facility]) | results section. | + +--------+ + + + | CAPILLARY BLOOD | Routin | 01/23/2018 | Closed fracture of | Results for this | | GLUCOSE (NO CHG), | e | 12:33 PM | right hip, initial | procedure are in the | | POC | | PDT | encounter ([facility]) | results section. | + +--------+ + + + | CAPILLARY BLOOD | Routin | 01/23/2018 | Closed fracture of | Results for this | | GLUCOSE (NO CHG), | e | 7:26 AM | right hip, initial | procedure are in the | | POC | | PDT | encounter ([facility]) | results section. | + +--------+ + + + | CAPILLARY BLOOD | Routin | 01/23/2018 | Closed fracture of | Results for this | | GLUCOSE (NO CHG), | e | 4:53 AM | right hip, initial | procedure are in the | | POC | | PDT | encounter ([facility]) | results section. | + +--------+ + + + | CAPILLARY BLOOD | Routin | 01/22/2018 | Closed fracture of | Results for this | | GLUCOSE (NO CHG), | e | 9:14 PM | right hip, initial | procedure are in the | | POC | | PDT | encounter ([facility]) | results section. | + +--------+ + + + | CAPILLARY BLOOD | Routin | 01/22/2018 | Closed fracture of | Results for this | | GLUCOSE (NO CHG), | e | 4:52 PM | right hip, initial | procedure are in the | | POC | | PDT | encounter ([facility]) | results section. | + +--------+ + + + | VASC LAB VENOUS | Urgent | 01/22/2018 | | Results for this | | DUPLEX LOWER | | 2:30 PM | | procedure are in the | | EXTREMITY BILAT COMP | | PDT | | results section. | + +--------+ + + + | CAPILLARY BLOOD | Routin | 01/22/2018 | Closed fracture of | Results for this | | GLUCOSE (NO CHG), | e | 11:55 AM | right hip, initial | procedure are in the | | POC | | PDT | encounter ([facility]) | results section. | + +--------+ + + + | CAPILLARY BLOOD | Routin | 01/22/2018 | Closed fracture of | Results for this | | GLUCOSE (NO CHG), | e | 7:21 AM | right hip, initial | procedure are in the | | POC | | PDT | encounter ([facility]) | results section. | + +--------+ + + + | CAPILLARY BLOOD | Routin | 01/22/2018 | Closed fracture of | Results for this | | GLUCOSE (NO CHG), | e | 6:47 AM | right hip, initial | procedure are in the | | POC | | PDT | encounter ([facility]) | results section. | + +--------+ + + + | CAPILLARY BLOOD | Routin | 01/22/2018 | Closed fracture of | Results for this | | GLUCOSE (NO CHG), | e | 6:28 AM | right hip, initial | procedure are in the | | POC | | PDT | encounter (HCC) | results section. | + +--------+ + + + | CAPILLARY BLOOD | Routin | 01/22/2018 | Closed fracture of | Results for this | | GLUCOSE (NO CHG), | e | 6:06 AM | right hip, initial | procedure are in the | | POC | | PDT | encounter ([facility]) | results section. | + +--------+ + + + | CBC (HEMOGRAM) ONLY | Urgent | 01/22/2018 | | Results for this | | | | 5:58 AM | | procedure are in the | | | | PDT | | results section. | + +--------+ + + + | BASIC METABOLIC SET | Urgent | 01/22/2018 | | Results for this | | (NA, K, CL, TCO2, | | 5:58 AM | | procedure are in the | | BUN, CR, GLU, CA) | | PDT | | results section. | + +--------+ + + + | CBC ONLY | Urgent | 01/22/2018 | | Results for this | | | | 5:58 AM | | procedure are in the | | | | PDT | | results section. | + +--------+ + + + | MAGNESIUM, PLASMA | Urgent | 01/22/2018 | | Results for this | | | | 5:58 AM | | procedure are in the | | | | PDT | | results section. | + +--------+ + + + | CAPILLARY BLOOD | Routin | 01/21/2018 | Closed fracture of | Results for this | | GLUCOSE (NO CHG), | e | 11:33 PM | right hip, initial | procedure are in the | | POC | | PDT | encounter (HCC) | results section. | + +--------+ + + + | CAPILLARY BLOOD | Routin | 01/21/2018 | Closed fracture of | Results for this | | GLUCOSE (NO CHG), | e | 7:57 PM | right hip, initial | procedure are in the | | POC | | PDT | encounter ([facility]) | results section. | + +--------+ + + + | CAPILLARY BLOOD | Routin | 01/21/2018 | Closed fracture of | Results for this | | GLUCOSE (NO CHG), | e | 5:41 PM | right hip, initial | procedure are in the | | POC | | PDT | encounter ([facility]) | results section. | + +--------+ + + + | CAPILLARY BLOOD | Routin | 01/21/2018 | Closed fracture of | Results for this | | GLUCOSE (NO CHG), | e | 1:51 PM | right hip, initial | procedure are in the | | POC | | PDT | encounter ([facility]) | results section. | + +--------+ + + + | CAPILLARY BLOOD | Routin | 01/21/2018 | Closed fracture of | Results for this | | GLUCOSE (NO CHG), | e | 12:44 PM | right hip, initial | procedure are in the | | POC | | PDT | encounter ([facility]) | results section. | + +--------+ + + + | CAPILLARY BLOOD | Routin | 01/21/2018 | Closed fracture of | Results for this | | GLUCOSE (NO CHG), | e | 7:50 AM | right hip, initial | procedure are in the | | POC | | PDT | encounter ([facility]) | results section. | + +--------+ + + + | CAPILLARY BLOOD | Routin | 01/21/2018 | Closed fracture of | Results for this | | GLUCOSE (NO CHG), | e | 6:11 AM | right hip, initial | procedure are in the | | POC | | PDT | encounter ([facility]) | results section. | + +--------+ + + + | BASIC METABOLIC SET | Urgent | 01/21/2018 | | Results for this | | (NA, K, CL, TCO2, | | 5:02 AM | | procedure are in the | | BUN, CR, GLU, CA) | | PDT | | results section. | + +--------+ + + + | MAGNESIUM, PLASMA | Urgent | 01/21/2018 | | Results for this | | | | 5:02 AM | | procedure are in the | | | | PDT | | results section. | + +--------+ + + + | CBC (HEMOGRAM) ONLY | Urgent | 01/21/2018 | | Results for this | | | | 5:01 AM | | procedure are in the | | | | PDT | | results section. | + +--------+ + + + | CBC ONLY | Urgent | 01/21/2018 | | Results for this | | | | 5:01 AM | | procedure are in the | | | | PDT | | results section. | + +--------+ + + + | CAPILLARY BLOOD | Routin | 01/20/2018 | Closed fracture of | Results for this | | GLUCOSE (NO CHG), | e | 9:13 PM | right hip, initial | procedure are in the | | POC | | PDT | encounter ([facility]) | results section. | + +--------+ + + + | PROCEDURE NOTE | Routin | 01/20/2018 | | Results for this | | | e | 6:30 PM | | procedure are in the | | | | PDT | | results section. | + +--------+ + + + | CAPILLARY BLOOD | Routin | 01/20/2018 | Closed fracture of | Results for this | | GLUCOSE (NO CHG), | e | 5:34 PM | right hip, initial | procedure are in the | | POC | | PDT | encounter ([facility]) | results section. | + +--------+ + + + | X-RAY PELVIS 1 VIEW | Urgent | 01/20/2018 | | Results for this | | | | 3:40 PM | | procedure are in the | | | | PDT | | results section. | + +--------+ + + + | CAPILLARY BLOOD | Routin | 01/20/2018 | Closed fracture of | Results for this | | GLUCOSE (NO CHG), | e | 3:09 PM | right hip, initial | procedure are in the | | POC | | PDT | encounter (HCC) | results section. | + +--------+ + + + | PROCEDURE NOTE | Routin | 01/20/2018 | | Results for this | | | e | 3:06 PM | | procedure are in the | | | | PDT | | results section. | + +--------+ + + + | CAPILLARY BLOOD | Routin | 01/20/2018 | Closed fracture of | Results for this | | GLUCOSE (NO CHG), | e | 1:23 PM | right hip, initial | procedure are in the | | POC | | PDT | encounter (HCC) | results section. | + +--------+ + + + | HIP HEMIARTHROPLASTY | Electi | 01/20/2018 | RIGHT HIP FRACTURE | | | | ve | 12:18 PM | | | | | Surgic | PDT | | | | | al | | | | + +--------+ + + + | CAPILLARY BLOOD | Routin | 01/20/2018 | Closed fracture of | Results for this | | GLUCOSE (NO CHG), | e | 9:32 AM | right hip, initial | procedure are in the | | POC | | PDT | encounter (HCC) | results section. | + +--------+ + + + | 12 LEAD ECG | Routin | 01/20/2018 | | Results for this | | | e | 7:54 AM | | procedure are in the | | | | PDT | | results section. | + +--------+ + + + | CBC (HEMOGRAM) ONLY | Urgent | 01/20/2018 | | Results for this | | | | 6:31 AM | | procedure are in the | | | | PDT | | results section. | + +--------+ + + + | BASIC METABOLIC SET | Urgent | 01/20/2018 | | Results for this | | (NA, K, CL, TCO2, | | 6:31 AM | | procedure are in the | | BUN, CR, GLU, CA) | | PDT | | results section. | + +--------+ + + + | CBC ONLY | Urgent | 01/20/2018 | | Results for this | | | | 6:31 AM | | procedure are in the | | | | PDT | | results section. | + +--------+ + + + | MAGNESIUM, PLASMA | Urgent | 01/20/2018 | | Results for this | | | | 6:31 AM | | procedure are in the | | | | PDT | | results section. | + +--------+ + + + | X-RAY PORTABLE CHEST | Urgent | 01/20/2018 | | Results for this | | 1 VIEW | | 5:59 AM | | procedure are in the | | | | PDT | | results section. | + +--------+ + + + | CAPILLARY BLOOD | Routin | 01/20/2018 | Closed fracture of | Results for this | | GLUCOSE (NO CHG), | e | 5:59 AM | right hip, initial | procedure are in the | | POC | | PDT | encounter (HCC) | results section. | + +--------+ + + + | CARDIOLOGY | | 01/20/2018 | | Results for this | | | | 12:00 AM | | procedure are in the | | | | PDT | | results section. | + +--------+ + + + | CAPILLARY BLOOD | Routin | 01/19/2018 | Closed fracture of | Results for this | | GLUCOSE (NO CHG), | e | 11:06 PM | right hip, initial | procedure are in the | | POC | | PDT | encounter ([facility]) | results section. | + +--------+ + + + | CAPILLARY BLOOD | Routin | 01/19/2018 | Closed fracture of | Results for this | | GLUCOSE (NO CHG), | e | 10:00 PM | right hip, initial | procedure are in the | | POC | | PDT | encounter ([facility]) | results section. | + +--------+ + + + | CT LOWER EXTREMITY | Urgent | 01/19/2018 | | Results for this | | RIGHT WO CONTRAST | | 9:10 PM | | procedure are in the | | | | PDT | | results section. | + +--------+ + + + | X-RAY PELVIS 1 VIEW | Urgent | 01/19/2018 | | Results for this | | | | 8:03 PM | | procedure are in the | | | | PDT | | results section. | + +--------+ + + + | X-RAY FEMUR 2 VIEWS | Urgent | 01/19/2018 | | Results for this | | RIGHT | | 7:07 PM | | procedure are in the | | | | PDT | | results section. | + +--------+ + + + | BG-LAC,POC ISTAT | Urgent | 01/19/2018 | | Results for this | | | | 6:38 PM | | procedure are in the | | | | PDT | | results section. | + +--------+ + + + | RAINBOW HOLD TUBE - | Urgent | 01/19/2018 | | | | BLUE TOP | | 6:16 PM | | | | | | PDT | | | + +--------+ + + + | CBC (HEMOGRAM) ONLY | Urgent | 01/19/2018 | | Results for this | | | | 6:16 PM | | procedure are in the | | | | PDT | | results section. | + +--------+ + + + | CBC ONLY | Urgent | 01/19/2018 | | Results for this | | | | 6:16 PM | | procedure are in the | | | | PDT | | results section. | + +--------+ + + + | BLOOD BANK HOLD TUBE | Urgent | 01/19/2018 | | Results for this | | - DON | | 6:16 PM | | procedure are in the | | | | PDT | | results section. | | T PROCESS | | | | | + +--------+ + + + | ETHANOL (ALCOHOL), | Urgent | 01/19/2018 | | Results for this | | BLOOD | | 6:16 PM | | procedure are in the | | | | PDT | | results section. | + +--------+ + + + | GLUCOSE, PLASMA | Urgent | 01/19/2018 | | Results for this | | | | 6:16 PM | | procedure are in the | | | | PDT | | results section. | + +--------+ + + + | CONFIRMATORY ABO/RH | Routin | 01/19/2018 | | Results for this | | | e | 6:16 PM | | procedure are in the | | | | PDT | | results section. | + +--------+ + + + | INR | Urgent | 01/19/2018 | | Results for this | | | | 6:16 PM | | procedure are in the | | | | PDT | | results section. | + +--------+ + + + | ANTIBODY SCREEN | Routin | 01/19/2018 | | Results for this | | | e | 6:16 PM | | procedure are in the | | | | PDT | | results section. | + +--------+ + + + | ABO & RH TYPE | Routin | 01/19/2018 | | Results for this | | | e | 6:16 PM | | procedure are in the | | | | PDT | | results section. | + +--------+ + + + | HEMOGLOBIN A1C, | Urgent | 01/19/2018 | | Results for this | | BLOOD | | 6:16 PM | | procedure are in the | | | | PDT | | results section. | + +--------+ + + + documented in this encounter Results CAPILLARY BLOOD GLUCOSE (NO CHG), POC (01/25/2018 11:26 AM PDT) + +---------+ + + + | Component | Value | Ref Range | Performed | Pathologist | | | | | At | Signature | + +---------+ + + + | BLOOD | 130 (H) | 70 - 99 mg/dL | [facility] - | | | GLUCOSE, | | | [place] | | | POC | | | [facility] | | | | | | OF CARE | | | | | | TESTS | | + +---------+ + + + + + | Specimen | + + | | + + + + + + + | Performing | Address | City/State/Zipcode | Phone Number | | Organization | | | | + + + + + | [facility] | [address] | [place], [place] | | | [facility] | [address] | [phone] | | | TESTS | | | | + + + + + CAPILLARY BLOOD GLUCOSE (NO CHG), POC (01/25/2018 7:34 AM PDT) + +---------+ + + + | Component | Value | Ref Range | Performed | Pathologist | | | | | At | Signature | + +---------+ + + + | BLOOD | 106 (H) | 70 - 99 mg/dL | [facility] - | | | GLUCOSE, | | | [place] | | | POC | | | [facility] | | | | | | OF CARE | | | | | | TESTS | | + +---------+ + + + + + | Specimen | + + | | + + + + + + + | Performing | Address | City/State/Zipcode | Phone Number | | Organization | | | | + + + + + | [facility] | [address] | [place], [place] | | | [facility] | [facility] | [phone] | | | TESTS | | | | + + + + + CAPILLARY BLOOD GLUCOSE (NO CHG), POC (01/25/2018 6:33 AM PDT) + +---------+ + + + | Component | Value | Ref Range | Performed | Pathologist | | | | | At | Signature | + +---------+ + + + | BLOOD | 117 (H) | 70 - 99 mg/dL | [facility] - | | | GLUCOSE, | | | [place] | | | POC | | | [facility] | | | | | | OF CARE | | | | | | TESTS | | + +---------+ + + + + + | Specimen | + + | | + + + + + + + | Performing | Address | City/State/Zipcode | Phone Number | | Organization | | | | + + + + + | [facility] | [address] | [place], [place] | | | [facility] | [address] | [phone] | | | TESTS | | | | + + + + + CAPILLARY BLOOD GLUCOSE (NO CHG), POC (01/24/2018 9:10 PM PDT) + +---------+ + + + | Component | Value | Ref Range | Performed | Pathologist | | | | | At | Signature | + +---------+ + + + | BLOOD | 177 (H) | 70 - 99 mg/dL | [facility] - | | | GLUCOSE, | | | [place] | | | POC | | | [facility] | | | | | | OF CARE | | | | | | TESTS | | + +---------+ + + + + + | Specimen | + + | | + + + + + + + | Performing | Address | City/State/Zipcode | Phone Number | | Organization | | | | + + + + + | [facility] | [address] | [place], [place] | | | [facility] | [address] | [address] | | | TESTS | | | | + + + + + CAPILLARY BLOOD GLUCOSE (NO CHG), POC (01/24/2018 4:56 PM PDT) + +---------+ + + + | Component | Value | Ref Range | Performed | Pathologist | | | | | At | Signature | + +---------+ + + + | BLOOD | 168 (H) | 70 - 99 mg/dL | [facility] - | | | GLUCOSE, | | | [place] | | | POC | | | [facility] | | | | | | OF CARE | | | | | | TESTS | | + +---------+ + + + + + | Specimen | + + | | + + + + + + + | Performing | Address | City/State/Zipcode | Phone Number | | Organization | | | | + + + + + | [facility] | [address] | [place], [place] | | | [facility] | [facility] | [phone] | | | TESTS | | | | + + + + + CAPILLARY BLOOD GLUCOSE (NO CHG), POC (01/24/2018 12:25 PM PDT) + +---------+ + + + | Component | Value | Ref Range | Performed | Pathologist | | | | | At | Signature | + +---------+ + + + | BLOOD | 125 (H) | 70 - 99 mg/dL | [facility] - | | | GLUCOSE, | | | [place] | | | POC | | | [facility] | | | | | | OF CARE | | | | | | TESTS | | + +---------+ + + + + + | Specimen | + + | | + + + + + + + | Performing | Address | City/State/Zipcode | Phone Number | | Organization | | | | + + + + + | [facility] | [address] | [place], [place] | | | [facility] | [address] | [phone] | | | TESTS | | | | + + + + + CBC (HEMOGRAM) ONLY (01/24/2018 11:16 AM PDT) + + + + + + | Component | Value | Ref Range | Performed | Pathologist | | | | | At | Signature | + + + + + + | WHITE CELL | 11.78 (H) | 3.50 - 10.80 | [facility] | | | COUNT | | K/cu mm | LABORATORY | | | | | | SERVICES, | | | | | | CORE | | + + + + + + | RED CELL | 5.91 | 4.50 - 6.00 | [facility] | | | COUNT | | M/cu mm | LABORATORY | | | | | | SERVICES, | | | | | | CORE | | + + + + + + | HEMOGLOBIN | 13.5 | 13.5 - 17.5 | [facility] | | | | | g/dL | LABORATORY | | | | | | SERVICES, | | | | | | CORE | | + + + + + + | HEMATOCRIT | 42.6 | 41.0 - 53.0 % | [facility] | | | | | | LABORATORY | | | | | | SERVICES, | | | | | | CORE | | + + + + + + | MCV | 72.1 (L) | 80.0 - 96.0 fL | [facility] | | | | | | LABORATORY | | | | | | SERVICES, | | | | | | CORE | | + + + + + + | MCHC | 31.7 | 33.0 - 35.5 | [facility] | | | | | g/dL | LABORATORY | | | | | | SERVICES, | | | | | | CORE | | + + + + + + | RDW SD | 43.8 | 35.1 - 46.3 fL | [facility] | | | | | | LABORATORY | | | | | | SERVICES, | | | | | | CORE | | + + + + + + | PLATELET | 183 | 150 - 400 K/cu | [facility] | | | COUNT | | mm | LABORATORY | | | | | | SERVICES, | | | | | | CORE | | + + + + + + | MPV | 10.7 | 9.7 - 12.3 fL | [facility] | | | | | | LABORATORY | | | | | | SERVICES, | | | | | | CORE | | + + + + + + | NRBC% | 0.0 | 0.0 - 0.3 % | [facility] | | | | | | LABORATORY | | | | | | SERVICES, | | | | | | CORE | | + + + + + + | NRBC# | 0.00 | 0.00 - 0.02 | [facility] | | | | | K/cu mm | LABORATORY | | | | | | SERVICES, | | | | | | CORE | | + + + + + + + + | Specimen | + + | Blood - Blood | | (substance) | + + + + + + + | Performing | Address | City/State/Zipcode | Phone Number | | Organization | | | | + + + + + | [facility] | [address] | [place] [address] | | | SERVICES, CORE | [address] | | | + + + + + BASIC METABOLIC SET (NA, K, CL, TCO2, BUN, CR, GLU, CA) (01/24/2018 11:16 AM PDT) + +---------+ + + + | Component | Value | Ref Range | Performed | Pathologist | | | | | At | Signature | + +---------+ + + + | GLUCOSE, | 107 (H) | 70 - 99 mg/dL | [facility] | | | PLASMA | | | LABORATORY | | | (LAB) | | | SERVICES, | | | | | | CORE | | + +---------+ + + + | BUN, PLASMA | 13 | 6 - 20 mg/dL | [facility] | | | (LAB) | | | LABORATORY | | | | | | SERVICES, | | | | | | CORE | | + +---------+ + + + | CREATININE | 0.76 | 0.70 - 1.30 | [facility] | | | PLASMA | | mg/dL | LABORATORY | | | (LAB) | | | SERVICES, | | | | | | CORE | | + +---------+ + + + | EGFR | >60 | >60 mL/min | [facility] | | | - | | | LABORATORY | | | [facility] | | | SERVICES, | | | | | | CORE | | + +---------+ + + + | EGFR NON | >60 | >60 mL/min | [facility] | | | -[facility] | | | LABORATORY | | | [facility] | | | SERVICES, | | | | | | CORE | | + +---------+ + + + | SODIUM, | 133 (L) | 136 - 145 | [facility] | | | PLASMA | | mmol/L | LABORATORY | | | (LAB) | | | SERVICES, | | | | | | CORE | | + +---------+ + + + | POTASSIUM, | 3.9 | 3.4 - 5.0 | [facility] | | | PLASMA | | mmol/L | LABORATORY | | | (LAB) | | | SERVICES, | | | | | | CORE | | + +---------+ + + + | CHLORIDE, | 94 (L) | 97 - 108 mmol/L | [facility] | | | PLASMA | | | LABORATORY | | | (LAB) | | | SERVICES, | | | | | | CORE | | + +---------+ + + + | TOTAL CO2, | 27 | 21 - 32 mmol/L | [facility] | | | PLASMA | | | LABORATORY | | | (LAB) | | | SERVICES, | | | | | | CORE | | + +---------+ + + + | CALCIUM, | 8.7 | 8.6 - 10.2 | [facility] | | | PLASMA | | mg/dL | LABORATORY | | | (LAB) | | | SERVICES, | | | | | | CORE | | + +---------+ + + + | ANION GAP | 12 (H) | 4 - 11 mmol/L | [facility] | | | | | | LABORATORY | | | | | | SERVICES, | | | | | | CORE | | + +---------+ + + + | POTASSIUM | No Hemo | | [facility] | | | CMNT | | | LABORATORY | | | | | | SERVICES, | | | | | | CORE | | + +---------+ + + + + + | Specimen | + + | Blood - Blood | | (substance) | + + + + + | Narrative | Performed At | + + + | GFR is estimated using the MDRD equation recommended by the | [facility] | | National Kidney Disease Education Program. Estimated GFR | LABORATORY | | Interpretive Information: <60 mL/min/1.73 sq m | SERVICES, CORE | | Chronic Kidney Disease <15 mL/min/1.73 sq m | | | Kidney Failure Estimated GFR greater that 60 mL/min/1.73 sq m is of | | | limited clinical value. The MDRD equation is not valid in the | | | following situations: - Patients under 18 years of age - Severe | | | malnutrition or obesity - Vegetarian diet - Rapidly changing kidney | | | function - Amputees, paraplegics, or other muscle-wasting diseses | | + + + + + + + + | Performing | Address | City/State/Zipcode | Phone Number | | Organization | | | | + + + + + | [facility] | [address] | [place] [address] | | | SERVICES, CORE | [address] | | | + + + + + CAPILLARY BLOOD GLUCOSE (NO CHG), POC (01/24/2018 7:36 AM PDT) + +---------+ + + + | Component | Value | Ref Range | Performed | Pathologist | | | | | At | Signature | + +---------+ + + + | BLOOD | 146 (H) | 70 - 99 mg/dL | [facility] | | | GLUCOSE, | | | [facility] | | | POC | | | [facility] | | | | | | OF CARE | | | | | | TESTS | | + +---------+ + + + + + | Specimen | + + | | + + + + + + + | Performing | Address | City/State/Zipcode | Phone Number | | Organization | | | | + + + + + | [facility] | [address] | [place], [place] | | | [facility] NEAL OF CARE | [facility] | [address] | | | TESTS | | | | + + + + + CAPILLARY BLOOD GLUCOSE (NO CHG), POC (01/24/2018 6:04 AM PDT) + +---------+ + + + | Component | Value | Ref Range | Performed | Pathologist | | | | | At | Signature | + +---------+ + + + | BLOOD | 122 (H) | 70 - 99 mg/dL | [facility] | | | GLUCOSE, | | | [facility] | | | POC | | | [facility] | | | | | | OF CARE | | | | | | TESTS | | + +---------+ + + + + + | Specimen | + + | | + + + + + + + | Performing | Address | City/State/Zipcode | Phone Number | | Organization | | | | + + + + + | [facility] | [address] | [place], [place] | | | VAL POINT OF CARE | [address] | [address] | | | TESTS | | | | + + + + + CAPILLARY BLOOD GLUCOSE (NO CHG), POC (01/23/2018 8:36 PM PDT) + +---------+ + + + | Component | Value | Ref Range | Performed | Pathologist | | | | | At | Signature | + +---------+ + + + | BLOOD | 152 (H) | 70 - 99 mg/dL | [facility] | | | GLUCOSE, | | | [facility] | | | POC | | | [facility] | | | | | | OF CARE | | | | | | TESTS | | + +---------+ + + + + + | Specimen | + + | | + + + + + + + | Performing | Address | City/State/Zipcode | Phone Number | | Organization | | | | + + + + + | [facility] | [address] | [place], [place] | | | VAL POINT OF CARE | [address] | [address] | | | TESTS | | | | + + + + + CAPILLARY BLOOD GLUCOSE (NO CHG), POC (01/23/2018 4:42 PM PDT) + +---------+ + + + | Component | Value | Ref Range | Performed | Pathologist | | | | | At | Signature | + +---------+ + + + | BLOOD | 151 (H) | 70 - 99 mg/dL | [facility] | | | GLUCOSE, | | | [facility] | | | POC | | | [facility] | | | | | | OF CARE | | | | | | TESTS | | + +---------+ + + + + + | Specimen | + + | | + + + + + + + | Performing | Address | City/State/Zipcode | Phone Number | | Organization | | | | + + + + + | [facility] | [address] | [place], [place] | | | VAL POINT OF CARE | [address] | [address] | | | TESTS | | | | + + + + + CAPILLARY BLOOD GLUCOSE (NO CHG), POC (01/23/2018 12:33 PM PDT) + +---------+ + + + | Component | Value | Ref Range | Performed | Pathologist | | | | | At | Signature | + +---------+ + + + | BLOOD | 128 (H) | 70 - 99 mg/dL | [facility] | | | GLUCOSE, | | | [facility] | | | POC | | | [facility] | | | | | | OF CARE | | | | | | TESTS | | + +---------+ + + + + + | Specimen | + + | | + + + + + + + | Performing | Address | City/State/Zipcode | Phone Number | | Organization | | | | + + + + + | [facility] | [address] | [place], [place] | | | VAL POINT OF CARE | [address] | [address] | | | TESTS | | | | + + + + + CAPILLARY BLOOD GLUCOSE (NO CHG), POC (01/23/2018 7:26 AM PDT) + +---------+ + + + | Component | Value | Ref Range | Performed | Pathologist | | | | | At | Signature | + +---------+ + + + | BLOOD | 155 (H) | 70 - 99 mg/dL | [facility] | | | GLUCOSE, | | | [facility] | | | POC | | | [facility] | | | | | | OF CARE | | | | | | TESTS | | + +---------+ + + + + + | Specimen | + + | | + + + + + + + | Performing | Address | City/State/Zipcode | Phone Number | | Organization | | | | + + + + + | [facility] | [address] | [place], [place] | | | [facility] OF CARE | [address] | [address] | | | TESTS | | | | + + + + + CAPILLARY BLOOD GLUCOSE (NO CHG), POC (01/23/2018 4:53 AM PDT) + +---------+ + + + | Component | Value | Ref Range | Performed | Pathologist | | | | | At | Signature | + +---------+ + + + | BLOOD | 131 (H) | 70 - 99 mg/dL | [facility] | | | GLUCOSE, | | | [facility] | | | POC | | | [facility] | | | | | | OF CARE | | | | | | TESTS | | + +---------+ + + + + + | Specimen | + + | | + + + + + + + | Performing | Address | City/State/Zipcode | Phone Number | | Organization | | | | + + + + + | [facility] | [address] | [place], [place] | | | VAL POINT OF CARE | [address] | [address] | | | TESTS | | | | + + + + + CAPILLARY BLOOD GLUCOSE (NO CHG), POC (01/22/2018 9:14 PM PDT) + +---------+ + + + | Component | Value | Ref Range | Performed | Pathologist | | | | | At | Signature | + +---------+ + + + | BLOOD | 202 (H) | 70 - 99 mg/dL | [facility] | | | GLUCOSE, | | | [facility] | | | POC | | | [facility] | | | | | | OF CARE | | | | | | TESTS | | + +---------+ + + + + + | Specimen | + + | | + + + + + + + | Performing | Address | City/State/Zipcode | Phone Number | | Organization | | | | + + + + + | [facility] | [address] | [place], [place] | | | VAL POINT OF CARE | [address] | [address] | | | TESTS | | | | + + + + + CAPILLARY BLOOD GLUCOSE (NO CHG), POC (01/22/2018 4:52 PM PDT) + +---------+ + + + | Component | Value | Ref Range | Performed | Pathologist | | | | | At | Signature | + +---------+ + + + | BLOOD | 149 (H) | 70 - 99 mg/dL | [facility] | | | GLUCOSE, | | | [facility] | | | POC | | | [facility] | | | | | | OF CARE | | | | | | TESTS | | + +---------+ + + + + + | Specimen | + + | | + + + + + + + | Performing | Address | City/State/Zipcode | Phone Number | | Organization | | | | + + + + + | [facility] | [address] | [place], [place] | | | [facility] NA[facility] OF CARE | [facility] | [address] | | | TESTS | | | | + + + + + VASC LAB VENOUS DUPLEX LOWER EXTREMITY BILAT COMP (01/22/2018 2:30 PM PDT) + + | Specimen | + + | | + + + + + | Narrative | Performed At | + + + | Bilateral: The duplex scanner was used to examine the deep and | [facility] | | superficial veins of the right and left lower extremities. Right: | RADIOLOGY VASC | | The veins are patent with normal flow and responses to augmentation | US | | and compression maneuvers and no thrombus is noted. Left: There is | | | thrombus in a peroneal vein without extension into the popliteal vein. | | | All other veins are patent with normal flow and responses to | | | augmentation and compression maneuvers and no other thrombus is noted. | | | Conclusions: An abnormal venous examination. Right: There is | | | no venous thrombosis detected. Left: There is deep vein thrombosis in | | | an axial calf vein. There is no other venous thrombosis detected. | | | I have personally reviewed the images and, if necessary, | | | edited the report. I agree with the report as now presented. | | + + + + + | Procedure Note | + + | Service Account, [employer] - 01/22/2018 6:43 PM PDT Bilateral: The | | duplex scanner was used to examine the deep and superficial veins of the right and left | | lower extremities. Right: The veins are patent with normal flow and responses to | | augmentation and compression maneuvers and no thrombus is noted.Left: There is thrombus | | in a peroneal vein without extension into the popliteal vein. All other veins are patent | | with normal flow and responses to augmentation and compression maneuvers and no other | | thrombus is noted.Conclusions: An abnormal venous examination.Right: There is no venous | | thrombosis detected.Left: There is deep vein thrombosis in an axial calf vein. There is | | no other venous thrombosis detected. I have personally reviewed the images and, if | | necessary, edited the report. I agree with the report as now presented. | | | | | |I have personally reviewed the images and, if necessary, edited the report. I agree with t he report as now presented. | + + + +---------+ + + | Performing | Address | City/State/Zipcode | Phone Number | | Organization | | | | + +---------+ + + | [facility] | | | | | VASC US | | | | + +---------+ + + CAPILLARY BLOOD GLUCOSE (NO CHG), POC (01/22/2018 11:55 AM PDT) + +---------+ + + + | Component | Value | Ref Range | Performed | Pathologist | | | | | At | Signature | + +---------+ + + + | BLOOD | 115 (H) | 70 - 99 mg/dL | [facility] - | | | GLUCOSE, | | | [facility] | | | POC | | | [facility], POINT | | | | | | OF CARE | | | | | | TESTS | | + +---------+ + + + + + | Specimen | + + | | + + + + + + + | Performing | Address | City/State/Zipcode | Phone Number | | Organization | | | | + + + + + | [facility] | [address] | [place], [place] | | | [facility] OF CARE | [facility] | [address] | | | TESTS | | | | + + + + + CAPILLARY BLOOD GLUCOSE (NO CHG), POC (01/22/2018 7:21 AM PDT) + +-------+ + + + | Component | Value | Ref Range | Performed | Pathologist | | | | | At | Signature | + +-------+ + + + | BLOOD | 99 | 70 - 99 mg/dL | [facility] - | | | GLUCOSE, | | | [facility] | | | POC | | | [facility] | | | | | | OF CARE | | | | | | TESTS | | + +-------+ + + + + + | Specimen | + + | | + + + + + + + | Performing | Address | City/State/Zipcode | Phone Number | | Organization | | | | + + + + + | [facility] | [address] | [place], [place] | | | [facility] NEAL OF [place] | [facility] | [address] | | | TESTS | | | | + + + + + CAPILLARY BLOOD GLUCOSE (NO CHG), POC (01/22/2018 6:47 AM PDT) + +---------+ + + + | Component | Value | Ref Range | Performed | Pathologist | | | | | At | Signature | + +---------+ + + + | BLOOD | 112 (H) | 70 - 99 mg/dL | [facility] - | | | GLUCOSE, | | | [facility] | | | POC | | | [facility] | | | | | | OF CARE | | | | | | TESTS | | + +---------+ + + + + + | Specimen | + + | | + + + + + + + | Performing | Address | City/State/Zipcode | Phone Number | | Organization | | | | + + + + + | [facility] | [address] | [place], [place] | | | [facility] OF [place] | [address] | [address] | | | TESTS | | | | + + + + + CAPILLARY BLOOD GLUCOSE (NO CHG), POC (01/22/2018 6:28 AM PDT) + +-------+ + + + | Component | Value | Ref Range | Performed | Pathologist | | | | | At | Signature | + +-------+ + + + | BLOOD | 78 | 70 - 99 mg/dL | [facility] - | | | GLUCOSE, | | | [facility] | | | POC | | | [facility] | | | | | | OF CARE | | | | | | TESTS | | + +-------+ + + + + + | Specimen | + + | | + + + + + + + | Performing | Address | City/State/Zipcode | Phone Number | | Organization | | | | + + + + + | [facility] | [address] | [place], [place] | | | HILL, POINT OF CARE | [address] | [address] | | | TESTS | | | | + + + + + CAPILLARY BLOOD GLUCOSE (NO CHG), POC (01/22/2018 6:06 AM PDT) + +---------+ + + + | Component | Value | Ref Range | Performed | Pathologist | | | | | At | Signature | + +---------+ + + + | BLOOD | 50 (AA) | 70 - 99 mg/dL | [facility] - | | | GLUCOSE, | | | [facility] | | | POC | | | [facility] | | | | | | OF CARE | | | | | | TESTS | | + +---------+ + + + + + | Specimen | + + | | + + + + + + + | Performing | Address | City/State/Zipcode | Phone Number | | Organization | | | | + + + + + | [facility] | [address] | [place], [place] | | | [facility] OF [facility] | [facility] | [address] | | | TESTS | | | | + + + + + CBC (HEMOGRAM) ONLY (01/22/2018 5:58 AM PDT) + + + + + + | Component | Value | Ref Range | Performed | Pathologist | | | | | At | Signature | + + + + + + | WHITE CELL | 13.23 (H) | 3.50 - 10.80 | [facility] | | | COUNT | | K/cu mm | LABORATORY | | | | | | SERVICES, | | | | | | CORE | | + + + + + + | RED CELL | 5.72 | 4.50 - 6.00 | [facility] | | | COUNT | | M/cu mm | LABORATORY | | | | | | SERVICES, | | | | | | CORE | | + + + + + + | HEMOGLOBIN | 13.1 (L) | 13.5 - 17.5 | [facility] | | | | | g/dL | LABORATORY | | | | | | SERVICES, | | | | | | CORE | | + + + + + + | HEMATOCRIT | 42.3 | 41.0 - 53.0 % | [facility] | | | | | | LABORATORY | | | | | | SERVICES, | | | | | | CORE | | + + + + + + | MCV | 74.0 (L) | 80.0 - 96.0 fL | [facility] | | | | | | LABORATORY | | | | | | SERVICES, | | | | | | CORE | | + + + + + + | MCHC | 31.0 | 33.0 - 35.5 | [facility] | | | | | g/dL | LABORATORY | | | | | | SERVICES, | | | | | | CORE | | + + + + + + | RDW SD | 43.6 | 35.1 - 46.3 fL | [facility] | | | | | | LABORATORY | | | | | | SERVICES, | | | | | | CORE | | + + + + + + | PLATELET | 161 | 150 - 400 K/cu | [facility] | | | COUNT | | mm | LABORATORY | | | | | | SERVICES, | | | | | | CORE | | + + + + + + | MPV | 10.9 | 9.7 - 12.3 fL | [facility] | | | | | | LABORATORY | | | | | | SERVICES, | | | | | | CORE | | + + + + + + | NRBC% | 0.0 | 0.0 - 0.3 % | [facility] | | | | | | LABORATORY | | | | | | SERVICES, | | | | | | CORE | | + + + + + + | NRBC# | 0.00 | 0.00 - 0.02 | [facility] | | | | | K/cu mm | LABORATORY | | | | | | SERVICES, | | | | | | CORE | | + + + + + + + + | Specimen | + + | Blood - Blood | | (substance) | + + + + + + + | Performing | Address | City/State/Zipcode | Phone Number | | Organization | | | | + + + + + | [facility] | [address] | [place] [address] | | | SERVICES, CORE | [address] | | | + + + + + BASIC METABOLIC SET (NA, K, CL, TCO2, BUN, CR, GLU, CA) (01/22/2018 5:58 AM PDT) + +---------+ + + + | Component | Value | Ref Range | Performed | Pathologist | | | | | At | Signature | + +---------+ + + + | GLUCOSE, | 44 (LL) | 70 - 99 mg/dL | [facility] | | | PLASMA | | | LABORATORY | | | (LAB) | | | SERVICES, | | | | | | CORE | | + +---------+ + + + | BUN, PLASMA | 13 | 6 - 20 mg/dL | [facility] | | | (LAB) | | | LABORATORY | | | | | | SERVICES, | | | | | | CORE | | + +---------+ + + + | CREATININE | 0.80 | 0.70 - 1.30 | [facility] | | | PLASMA | | mg/dL | LABORATORY | | | (LAB) | | | SERVICES, | | | | | | CORE | | + +---------+ + + + | EGFR | >60 | >60 mL/min | [facility] | | | - | | | LABORATORY | | | [facility] | | | SERVICES, | | | | | | CORE | | + +---------+ + + + | EGFR NON | >60 | >60 mL/min | [facility] | | | -[facility] | | | LABORATORY | | | RICAN | | | SERVICES, | | | | | | CORE | | + +---------+ + + + | SODIUM, | 137 | 136 - 145 | [facility] | | | PLASMA | | mmol/L | LABORATORY | | | (LAB) | | | SERVICES, | | | | | | CORE | | + +---------+ + + + | POTASSIUM, | 3.4 | 3.4 - 5.0 | [facility] | | | PLASMA | | mmol/L | LABORATORY | | | (LAB) | | | SERVICES, | | | | | | CORE | | + +---------+ + + + | CHLORIDE, | 100 | 97 - 108 mmol/L | [facility] | | | PLASMA | | | LABORATORY | | | (LAB) | | | SERVICES, | | | | | | CORE | | + +---------+ + + + | TOTAL CO2, | 27 | 21 - 32 mmol/L | [facility] | | | PLASMA | | | LABORATORY | | | (LAB) | | | SERVICES, | | | | | | CORE | | + +---------+ + + + | CALCIUM, | 8.1 (L) | 8.6 - 10.2 | [facility] | | | PLASMA | | mg/dL | LABORATORY | | | (LAB) | | | SERVICES, | | | | | | CORE | | + +---------+ + + + | ANION GAP | 10 | 4 - 11 mmol/L | [facility] | | | | | | LABORATORY | | | | | | SERVICES, | | | | | | CORE | | + +---------+ + + + | POTASSIUM | No Hemo | | [facility] | | | CMNT | | | LABORATORY | | | | | | SERVICES, | | | | | | CORE | | + +---------+ + + + + + | Specimen | + + | Blood - Blood | | (substance) | + + + + + | Narrative | Performed At | + + + | GFR is estimated using the MDRD equation recommended by the | [facility] | | National Kidney Disease Education Program. Estimated GFR | LABORATORY | | Interpretive Information: <60 mL/min/1.73 sq m | SERVICES, CORE | | Chronic Kidney Disease <15 mL/min/1.73 sq m | | | Kidney Failure Estimated GFR greater that 60 mL/min/1.73 sq m is of | | | limited clinical value. The MDRD equation is not valid in the | | | following situations: - Patients under 18 years of age - Severe | | | malnutrition or obesity - Vegetarian diet - Rapidly changing kidney | | | function - Amputees, paraplegics, or other muscle-wasting diseses | | + + + + + + + + | Performing | Address | City/State/Zipcode | Phone Number | | Organization | | | | + + + + + | [facility] | [address] | [place] [address] | | | SERVICES, CORE | [address] | | | + + + + + MAGNESIUM, PLASMA (01/22/2018 5:58 AM PDT) + +-------+ + + + | Component | Value | Ref Range | Performed | Pathologist | | | | | At | Signature | + +-------+ + + + | MAGNESIUM,P | 1.7 | 1.6 - 2.6 mg/dL | [facility] | | | LASMA | | | LABORATORY | | | | | | SERVICES, | | | | | | CORE | | + +-------+ + + + + + | Specimen | + + | Blood - Blood | | (substance) | + + + + + | Narrative | Performed At | + + + | Reference range change effective 05/04/17. | [facility] | | | LABORATORY | | | [facility]SELU[facility]MO[facility] | + + + + + + + + | Performing | Address | City/State/Zipcode | Phone Number | | Organization | | | | + + + + + | [facility] | [address] | [place] [address] | | | JOSELUIS MA[address]MOOD | [address] | | | + + + + + CAPILLARY BLOOD GLUCOSE (NO CHG), POC (01/21/2018 11:33 PM PDT) + +-------+ + + + | Component | Value | Ref Range | Performed | Pathologist | | | | | At | Signature | + +-------+ + + + | BLOOD | 84 | 70 - 99 mg/dL | [facility] - | | | GLUCOSE, | | | [facility] | | | POC | | | [facility] | | | | | | OF CARE | | | | | | TESTS | | + +-------+ + + + + + | Specimen | + + | | + + + + + + + | Performing | Address | City/State/Zipcode | Phone Number | | Organization | | | | + + + + + | [facility] | [address] | [place], [place] | | | VAL POINT OF CARE | [address] | [address] | | | TESTS | | | | + + + + + CAPILLARY BLOOD GLUCOSE (NO CHG), POC (01/21/2018 7:57 PM PDT) + +---------+ + + + | Component | Value | Ref Range | Performed | Pathologist | | | | | At | Signature | + +---------+ + + + | BLOOD | 125 (H) | 70 - 99 mg/dL | [facility] - | | | GLUCOSE, | | | [facility] | | | POC | | | [facility] | | | | | | OF CARE | | | | | | TESTS | | + +---------+ + + + + + | Specimen | + + | | + + + + + + + | Performing | Address | City/State/Zipcode | Phone Number | | Organization | | | | + + + + + | [facility] | [address] | [place], [place] | | | [facility] NEAL OF CARE | [address] | [address] | | | TESTS | | | | + + + + + CAPILLARY BLOOD GLUCOSE (NO CHG), POC (01/21/2018 5:41 PM PDT) + +--------+ + + + | Component | Value | Ref Range | Performed | Pathologist | | | | | At | Signature | + +--------+ + + + | BLOOD | 59 (L) | 70 - 99 mg/dL | [facility] - | | | GLUCOSE, | | | [facility] | | | POC | | | [facility] | | | | | | OF CARE | | | | | | TESTS | | + +--------+ + + + + + | Specimen | + + | | + + + + + + + | Performing | Address | City/State/Zipcode | Phone Number | | Organization | | | | + + + + + | [facility] | [address] | [place], [place] | | | VAL POINT OF CARE | [address] | [address] | | | TESTS | | | | + + + + + CAPILLARY BLOOD GLUCOSE (NO CHG), POC (01/21/2018 1:51 PM PDT) + +-------+ + + + | Component | Value | Ref Range | Performed | Pathologist | | | | | At | Signature | + +-------+ + + + | BLOOD | 87 | 70 - 99 mg/dL | [facility] - | | | GLUCOSE, | | | [facility] | | | POC | | | [facility] | | | | | | OF CARE | | | | | | TESTS | | + +-------+ + + + + + | Specimen | + + | | + + + + + + + | Performing | Address | City/State/Zipcode | Phone Number | | Organization | | | | + + + + + | [facility] | [address] | [place], [place] | | | VAL POINT OF CARE | [address] | [address] | | | TESTS | | | | + + + + + CAPILLARY BLOOD GLUCOSE (NO CHG), POC (01/21/2018 12:44 PM PDT) + +-------+ + + + | Component | Value | Ref Range | Performed | Pathologist | | | | | At | Signature | + +-------+ + + + | BLOOD | 73 | 70 - 99 mg/dL | [facility] - | | | GLUCOSE, | | | [facility] | | | POC | | | [facility] | | | | | | OF CARE | | | | | | TESTS | | + +-------+ + + + + + | Specimen | + + | | + + + + + + + | Performing | Address | City/State/Zipcode | Phone Number | | Organization | | | | + + + + + | [facility] | [address] | [place], [place] | | | VAL POINT OF CARE | [address] | [address] | | | TESTS | | | | + + + + + CAPILLARY BLOOD GLUCOSE (NO CHG), POC (01/21/2018 7:50 AM PDT) + +-------+ + + + | Component | Value | Ref Range | Performed | Pathologist | | | | | At | Signature | + +-------+ + + + | BLOOD | 92 | 70 - 99 mg/dL | [facility] - | | | GLUCOSE, | | | [facility] | | | POC | | | VAL POINT | | | | | | OF CARE | | | | | | TESTS | | + +-------+ + + + + + | Specimen | + + | | + + + + + + + | Performing | Address | City/State/Zipcode | Phone Number | | Organization | | | | + + + + + | [facility] | [address] | [place], [place] | | | [facility] | [address] | [address] | | | TESTS | | | | + + + + + CAPILLARY BLOOD GLUCOSE (NO CHG), POC (01/21/2018 6:11 AM PDT) + +---------+ + + + | Component | Value | Ref Range | Performed | Pathologist | | | | | At | Signature | + +---------+ + + + | BLOOD | 104 (H) | 70 - 99 mg/dL | [facility] - | | | GLUCOSE, | | | [facility] | | | POC | | | [facility] | | | | | | OF CARE | | | | | | TESTS | | + +---------+ + + + + + | Specimen | + + | | + + + + + + + | Performing | Address | City/State/Zipcode | Phone Number | | Organization | | | | + + + + + | [facility] | [address] | [place], [place] | | | [facility] | [address] | [phone] | | | TESTS | | | | + + + + + BASIC METABOLIC SET (NA, K, CL, TCO2, BUN, CR, GLU, CA) (01/21/2018 5:02 AM PDT) + +---------+ + + + | Component | Value | Ref Range | Performed | Pathologist | | | | | At | Signature | + +---------+ + + + | GLUCOSE, | 51 (LL) | 70 - 99 mg/dL | [facility] | | | [facility] | | | LABORATORY | | | (LAB) | | | SERVICES, | | | | | | CORE | | + +---------+ + + + | BUN, PLASMA | 9 | 6 - 20 mg/dL | [facility] | | | (LAB) | | | LABORATORY | | | | | | SERVICES, | | | | | | CORE | | + +---------+ + + + | CREATININE | 0.85 | 0.70 - 1.30 | [facility] | | | PLASMA | | mg/dL | LABORATORY | | | (LAB) | | | SERVICES, | | | | | | CORE | | + +---------+ + + + | EGFR | >60 | >60 mL/min | [facility] | | | - | | | LABORATORY | | | [facility] | | | SERVICES, | | | | | | CORE | | + +---------+ + + + | EGFR NON | >60 | >60 mL/min | [facility] | | | -[facility] | | | LABORATORY | | | [facility] | | | SERVICES, | | | | | | CORE | | + +---------+ + + + | SODIUM, | 137 | 136 - 145 | [facility] | | | PLASMA | | mmol/L | LABORATORY | | | (LAB) | | | SERVICES, | | | | | | CORE | | + +---------+ + + + | POTASSIUM, | 3.5 | 3.4 - 5.0 | [facility] | | | PLASMA | | mmol/L | LABORATORY | | | (LAB) | | | SERVICES, | | | | | | CORE | | + +---------+ + + + | CHLORIDE, | 103 | 97 - 108 mmol/L | [facility] | | | PLASMA | | | LABORATORY | | | (LAB) | | | SERVICES, | | | | | | CORE | | + +---------+ + + + | TOTAL CO2, | 27 | 21 - 32 mmol/L | [facility] | | | PLASMA | | | LABORATORY | | | (LAB) | | | SERVICES, | | | | | | CORE | | + +---------+ + + + | CALCIUM, | 8.1 (L) | 8.6 - 10.2 | [facility] | | | PLASMA | | mg/dL | LABORATORY | | | (LAB) | | | SERVICES, | | | | | | CORE | | + +---------+ + + + | ANION GAP | 7 | 4 - 11 mmol/L | [facility] | | | | | | LABORATORY | | | | | | SERVICES, | | | | | | CORE | | + +---------+ + + + | POTASSIUM | No Hemo | | [facility] | | | CMNT | | | LABORATORY | | | | | | SERVICES, | | | | | | CORE | | + +---------+ + + + + + | Specimen | + + | Blood - Blood | | (substance) | + + + + + | Narrative | Performed At | + + + | GFR is estimated using the MDRD equation recommended by the | [facility] | | National Kidney Disease Education Program. Estimated GFR | LABORATORY | | Interpretive Information: <60 mL/min/1.73 sq m | SERVICES, CORE | | Chronic Kidney Disease <15 mL/min/1.73 sq m | | | Kidney Failure Estimated GFR greater that 60 mL/min/1.73 sq m is of | | | limited clinical value. The MDRD equation is not valid in the | | | following situations: - Patients under 18 years of age - Severe | | | malnutrition or obesity - Vegetarian diet - Rapidly changing kidney | | | function - Amputees, paraplegics, or other muscle-wasting diseses | | + + + + + + + + | Performing | Address | City/State/Zipcode | Phone Number | | Organization | | | | + + + + + | [facility] | [address] | [place] [address] | | | TIMOTEO, JOSELUIS | [address] | | | + + + + + MAGNESIUM, PLASMA (01/21/2018 5:02 AM PDT) + +-------+ + + + | Component | Value | Ref Range | Performed | Pathologist | | | | | At | Signature | + +-------+ + + + | MAGNESIUM,P | 1.6 | 1.6 - 2.6 mg/dL | [facility] | | | LASMA | | | LABORATORY | | | | | | SERVICES, | | | | | | CORE | | + +-------+ + + + + + | Specimen | + + | Blood - Blood | | (substance) | + + + + + | Narrative | Performed At | + + + | Reference range change effective 05/04/17. | [facility] | | | LABORATORY | | | SERVICES, CORE | + + + + + + + + | Performing | Address | City/State/Zipcode | Phone Number | | Organization | | | | + + + + + | [facility] | [address] | [place] [address] | | | SERVICES, CORE | [address] | | | + + + + + CBC (HEMOGRAM) ONLY (01/21/2018 5:01 AM PDT) + + + + + + | Component | Value | Ref Range | Performed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 Until Gabrielle 01/20/18 | | | at 1457 | | + +---+ | | | + +---+ + +-------+ + +---+--------+ | insulin glargine (LANTUS) | Given | 01/21/20 | 30 Units | | Right | | injection 30 Units 30 Units, | | 18 10:36 | | | Arm | | subcutaneous, ONCE, 1 dose, Gabrielle | | AM PDT | | | | | 01/20/18 at 1045 | | | | | | + +-------+ + +---+--------+ +---+---+ | | | +---+---+ + +-------+ + +---+---------+ | insulin glargine (LANTUS) | Given | 01/26/20 | 30 Units | | Abdomen | | injection 30 Units 30 Units, | | 18 8:20 | | | | | subcutaneous, TWICE DAILY, First | | AM PDT | | | | | dose (after last modification) on | | | | | | | 01/22/18 at 2100, Until | | | | | | | Discontinued | | | | | | + +-------+ + +---+---------+ +-------+ + +---+---------+ | Given | 01/25/20 | 30 Units | | Abdomen | | | 18 9:18 | | | | | | PM PDT | | | | +-------+ + +---+---------+ | Given | 01/25/20 | 30 Units | | Abdomen | | | 18 7:45 | | | | | | AM PDT | | | | +-------+ + +---+---------+ +---+---+ | | | +---+---+ + +-------+ + +---+---------+ | insulin glargine (LANTUS) | Given | 01/22/20 | 60 Units | | Abdomen | | injection 60 Units 60 Units, | | 18 8:38 | | | | | subcutaneous, TWICE DAILY, First | | PM PDT | | | | | dose on Wed01/19/18 at 2300, Until | | | | | | | Discontinued | | | | | | + +-------+ + +---+---------+ +-------+ + +---+ + | Given | 01/22/20 | 60 Units | | Left Arm | | | 18 7:58 | | | | | | AM PDT | | | | +-------+ + +---+ + | Given | 01/21/20 | 60 Units | | Abdomen | | | 18 9:33 | | | | | | PM PDT | | | | +-------+ + +---+ + +---+---+ | | | +---+---+ + +-------+ +---------+---+---------+ | insulin lispro (HUMALOG) | Given | 01/25/20 | 2 Units | | Abdomen | | injection subcutaneous, FOUR | | 18 9:18 | | | | | TIMES DAILY, First dose on Wed | | PM PDT | | | | | 01/21/18 at 1700, Until | | | | | | | Discontinued | | | | | | + +-------+ +---------+---+---------+ +-------+ +---------+---+---------+ | Given | 01/25/20 | 4 Units | | Abdomen | | | 18 5:22 | | | | | | PM PDT | | | | +-------+ +---------+---+---------+ | Given | 01/25/20 | 4 Units | | Abdomen | | | 18 7:45 | | | | | | AM PDT | | | | +-------+ +---------+---+---------+ +---+---+ | | | +---+---+ + +-------+ + +---+ + | insulin NPH (HUMULIN N) | Given | 01/22/20 | 36 Units | | Left Arm | | injection 36 Units 36 Units, | | 18 7:59 | | | | | subcutaneous, THREE TIMES DAILY | | AM PDT | | | | | WITH MEALS, First dose on Gabrielle | | | | | | | 01/20/18 at 0730, Until | | | | | | | Discontinued | | | | | | + +-------+ + +---+ + +-------+ + +---+ + | Given | 01/21/20 | 36 Units | | Left Arm | | | 18 5:47 | | | | | | PM PDT | | | | +-------+ + +---+ + +---+---+ | | | +---+---+ + +---------+ + +---+---+ | lactated Ringers IV 1,000 mL, | New Bag | 01/21/20 | 1,000 mL | | | | intravenous, ONCE, 1 dose, Gabrielle | | 18 10:41 | | | | | 01/20/18 at 1045 | | AM PDT | | | | + +---------+ + +---+---+ +---+---+ | | | +---+---+ + +---------+ +------+---+---+ | LORazepam (ATIVAN) injection 1 | IV Push | 01/20/20 | 1 mg | | | | mg 1 mg, intravenous, ONCE, 1 | | 18 8:59 | | | | | dose, Wed01/19/18 at 2130 | | PM PDT | | | | + +---------+ +------+---+---+ + +---+ | | | + +---+ | LORazepam (ATIVAN) injection 1 | | | dose, Starting Wed01/19/18 at | | | 1845, Until Wed01/19/18 at 2059 | | + +---+ | | | + +---+ + +-------+ +------+---+---+ | LORazepam (ATIVAN) injection | Given | 01/20/20 | 1 mg | | | | intravenous, INTRAPROCEDURE PRN, | | 18 6:47 | | | | | Starting 01/19/18 at 1847, | | PM PDT | | | | | Until 01/19/18 at 1847 | | | | | | + +-------+ +------+---+---+ +---+---+ | | | +---+---+ + +-------+ +------+---+---+ | morphine injection 2-4 mg 2-4 | Given | 01/20/20 | 4 mg | | | | mg, intravenous, EVERY 10 MINUTES | | 18 9:48 | | | | | NEEDED, 2 doses, Starting Wed | | PM PDT | | | | | 01/19/18 at 2143, Until 01/19/18 | | | | | | | at 2340, moderate pain | | | | | | + +-------+ +------+---+---+ +---+---+ | | | +---+---+ + +-------+ +-------+---+---+ | oxyCODONE (immediate release) | Given | 01/26/20 | 15 mg | | | | (ROXICODONE) tablet 5-15 mg 5-15 | | 18 1:13 | | | | | mg, oral, EVERY 3 HOURS | | PM PDT | | | | | NEEDED, Starting Wed01/19/18 at | | | | | | | 2251, Until Wed01/25/18 at 2023, | | | | | | | moderate pain | | | | | | + +-------+ +-------+---+---+ +-------+ +-------+---+---+ | Given | 01/26/20 | 15 mg | | | | | 18 10:06 | | | | | | AM PDT | | | | +-------+ +-------+---+---+ | Given | 01/26/20 | 15 mg | | | | | 18 7:08 | | | | | | AM PDT | | | | +-------+ +-------+---+---+ +---+---+ | | | +---+---+ + +-------+ +------+---+---+ | polyethylene glycol (MIRALAX) | Given | 01/25/20 | 34 g | | | | packet 34 g 34 g, oral, THREE | | 18 3:15 | | | | | TIMES DAILY NEEDED, Starting | | PM PDT | | | | | 01/19/18 at 2251, Until Tue | | | | | | | 01/25/18 at 2023, 1st line - for no | | | | | | | BM for 2 days | | | | | | + +-------+ +------+---+---+ +-------+ +------+---+---+ | Given | 01/25/20 | 34 g | | | | | 18 11:34 | | | | | | AM PDT | | | | +-------+ +------+---+---+ | Given | 01/25/20 | 34 g | | | | | 18 9:13 | | | | | | AM PDT | | | | +-------+ +------+---+---+ +---+---+ | | | +---+---+ + +-------+ + +---+---+ | senna-docusate (SENOKOT S) | Given | 01/25/20 | 1 tablet | | | | 8.6-50 mg 1 tablet 1 tablet, | | 18 9:18 | | | | | oral, TWICE DAILY, First dose on | | PM PDT | | | | | 01/19/18 at 2300, Until | | | | | | | Discontinued | | | | | | + +-------+ + +---+---+ +-------+ + +---+---+ | Given | 01/25/20 | 1 tablet | | | | | 18 8:56 | | | | | | AM PDT | | | | +-------+ + +---+---+ | Given | 01/24/20 | 1 tablet | | | | | 18 9:03 | | | | | | PM PDT | | | | +-------+ + +---+---+ +---+---+ | | | +---+---+ + +-------+ +--------+---+---+ | tamsulosin (FLOMAX) capsule 0.4 | Given | 01/25/20 | 0.4 mg | | | | mg 0.4 mg, oral, DAILY, First | | 18 11:34 | | | | | dose on Wed01/24/18 at 1215, Until | | AM PDT | | | | | Discontinued | | | | | | + +-------+ +--------+---+---+ +---+---+ | | | +---+---+ documented in this encounter
--- OUTSIDE RECORDS SUMMARY | ~2020-04-08 | XMS | Encounter Summary ---
Demographics + + + | Address | [address] | | | [place] [address] | + + + | Home Phone | | + + + | Preferred Language | Unknown | + + + | Marital Status | Single | + + + | Samaritan Affiliation | CHR | + + + | Race | White | + + + | Ethnic Group | Not or | + + + Author + + + | Author | [facility] | + + + | Organization | [facility] | + + + | Address | Unknown | + + + | Phone | Unavailable | + + + Support + + +---------+ + | Name | Relationship | Address | Phone | + + +---------+ + | Kaycee Ferraro | ECON | Unknown | | + + +---------+ + Care Team Providers + +------+ + | Care Distance Learning Unit Leader Name | Role | Phone | + +------+ + PCP | Unavailable | + +------+ + Encounter Details +--------+ + + + + | Date | Type | Department | Care Team | Description | +--------+ + + + + | 10/02/ | H&P-Transcr | [facility] | Bassem Wagner, | Hstry & Physical | | 2008 | ibed | & Rehabilitation | [address] | | | | | [address] | [place], [place] | | | | | [address], [address] | [address] | | | | | [address], | [phone] | | | | | [address] | | | | | | [facility] [place] | | | | | | [address] | | | | | | [phone] | | | +--------+ + + + [...]
--- OUTSIDE RECORDS SUMMARY | ~2020-04-08 | XMS | Encounter Summary ---
Demographics + + + | Address | [address] | | | [place] [address] | + + + | Home Phone | | + + + | Preferred Language | Unknown | + + + | Marital Status | Single | + + + | Mandaeism Affiliation | CHR | + + + | Race | White | + + + | Ethnic Group | Not or | + + + Author + + + | Author | [facility] | + + + | Organization | [facility] | + + + | Address | Unknown | + + + | Phone | Unavailable | + + + Support + + +---------+ + | Name | Relationship | Address | Phone | + + +---------+ + | Kaycee Ferraro | ECON | Unknown | | + + +---------+ + Care Team Providers + +------+ + | Care Coloring Room Man Name | Role | Phone | + +------+ + PCP | Unavailable | + +------+ + Encounter Details +--------+ + + + + | Date | Type | Department | Care Team | Description | +--------+ + + + + | 10/02/ | Telephone | [facility] | Bassem Wagner, | | | 2007 | | & Rehabilitation | [address] | | | | | [address] | [place], [place] | | | | | Suite [facility] | [address] | | | | | [address], | [phone] | | | | | [facility] | | | | | | [place], [place] | | | | | | [address] | | | | | | [phone] | | | +--------+ + + + [...]
--- OUTSIDE RECORDS SUMMARY | ~2020-04-08 | XMS | Encounter Summary ---
Demographics + + + | Address | [address] | | | [place] [address] | + + + | Home Phone | | + + + | Preferred Language | Unknown | + + + | Marital Status | Single | + + + | Holiness Affiliation | CHR | + + + | Race | White | + + + | Ethnic Group | Not or | + + + Author + + + | Author | [facility] | + + + | Organization | [facility] | + + + | Address | Unknown | + + + | Phone | Unavailable | + + + Support + + +---------+ + | Name | Relationship | Address | Phone | + + +---------+ + | Kaycee Ferraro | ECON | Unknown | | + + +---------+ + Care Team Providers + +------+ + | Care E Commerce Project Manager Name | Role | Phone | [...] | anned | Services [address] | [phone] | | | | | [address] | | | | | | Mailcode: [id number] | | | | | | [facility] | | | | | | [place], [place] | | | | | | [address] | | | | | | [phone] | | | +--------+ + + + [...]
--- OUTSIDE RECORDS SUMMARY | ~2020-04-08 | XMS | Encounter Summary ---
Demographics + + + | Address | [address] | | | [place] [address] | + + + | Home Phone | | + + + | Preferred Language | Unknown | + + + | Marital Status | Single | + + + | Adventism Affiliation | 1013 | + + + | Race | Unknown | + + + | Ethnic Group | Unknown | + + + Author + + + | Author | [facility] | | | and [place] | + + + | Organization | [facility] | | | [...] Team Providers + +------+ + | Care Community Music Therapist Name | Role | Phone | + [...] E | | | | | | ([facility]) | [address] | | | | | | Procedures | [address] | | | | | | VAS Ankle | Phone: | | | | | | Brachial | [phone] | | | | | | Index | Fax: | | | | | | Resting | [phone] | | +--------+--------+ + + + + Reason for Visit Diagnostic/Screening (Routine) +--------+--------+ + + + + | Status | Reason | Specialty | Diagnoses / | Referred By | Referred To | | | | | Procedures | Contact | Contact | +--------+--------+ + + + + | Closed | | Radiology | Diagnoses | Poi, Fuentes | | | | | | Ulcer of | MD Valerio | | | | | | left foot, | [address] | | | | | | unspecified | [address] | | | | | | ulcer stage | [facility] | | | | | | ([facility]) | [place] | | | | | | Procedures | [address] | | | | | | VAS Ankle | Phone: | | | | | | Brachial | [phone] | | | | | | Index | Fax: | | | | | | Resting | [phone] | | +--------+--------+ + + + + Encounter Details +--------+ + + + + | Date | Type | Department | Care Team | Description | +--------+ + + + + | 03/19/ | Hospital | [facility] | | Ulcer of left foot, | | 2019 | Encounter | VASCULAR SURGERY | | unspecified ulcer | | | | ULTRASOUND [address] | | stage (HCC) | | | | [address] | | | | | | [place], [place] | | | | | | [address] | | | | | | [phone] | | | +--------+ + + + [...] + + documented as of this encounter Medications at Time of Discharge + + + +---------+ + + | Medication | Sig | Dispensed | Refills | Start | End Date | | | | | | Date | | + + + +---------+ + + | betamethasone | Apply topically 2 | | 0 | 05/05/20 | | | dipropionate 0.05% | (two) times daily. | | | 18 | | | cream | Apply to affected | | | | | | | areas on the skin of | | | | | | | left leg two times | | | | | | | a day. | | | | | + + + +---------+ + + | clopidogrel | Take 1 tablet by | 30 | 11 | 03/19/20 | | | (PLAVIX) 75 mg | mouth Daily for 30 | tablet | | 20 | 0 | | tablet | days. | | | | | + + + +---------+ + + | gabapentin | Take 300 mg by mouth | | 0 | 05/05/20 | | | (NEURONTIN) 300 mg | 3 (three) times | | | 18 | | | capsule | daily. | | | | | + + + +---------+ + + | hydrOXYzine | Take 25 mg by mouth | | 0 | 05/05/20 | | | pamoate (VISTARIL) | as needed for | | | 18 | | | 25 mg capsule | Itching. | | | | | + + + +---------+ + + | | Take 1 tablet by | | 0 | 05/05/20 | | | lisinopril-hydrochlo | mouth daily. | | | 18 | | | rothiazide | | | | | | | (PRINZIDE,ZESTORETIC | | | | | | | ) 20-12.5 MG per | | | | | | | tablet | | | | | | + + + +---------+ + + | oxyCODONE 10 MG | Take 1 tablet by | 15 | 0 | 06/22/20 | | | TABS | mouth every 6 (six) | tablet | | 18 | | | | hours as needed for | | | | | | | Pain. | | | | | + + + +---------+ + + | permethrin | Apply topically | | 0 | 05/05/20 | | | (ELIMITE) 5% cream | once a week. Apply | | | 18 | | | | from head to toe, | | | | | | | leave on for 8 to 14 | | | | | | | hours then rinse. | | | | | | | May reapply in 7 | | | | | | | days. | | | | | + + + +---------+ + + | tamsulosin | Take 1 capsule by | 30 | 0 | 06/22/20 | | | (FLOMAX) 0.4 mg CAPS | mouth After dinner. | capsule | | 18 | | + + + +---------+ + + | traMADol (ULTRAM) | Take 50 mg by mouth | | 0 | | | | 50 mg tablet | every 6 hours as | | | | | | | needed. | | | | | + + [...] + + documented in this encounter Results VAS Ankle Brachial Index [...] Procedure Note | + + | Hansel, [id number] - 03/19/2020 1:40 PM PDT | | [...] of left foot, unspecified ulcer stage (HCC) | + + documented in this encounter"
--- OUTSIDE RECORDS SUMMARY | ~2020-04-08 | XMS | Encounter Summary ---
Demographics + + + | Address | [address] | | | [place] [address] | + + + | Home Phone | | + + + | Preferred Language | Unknown | + + + | Marital Status | Single | + + + | Sikhism Affiliation | CHR | + + + | Race | White | + + + | Ethnic Group | Not or | + + + Author + + + | Author | [facility] | + + + | Organization | [facility] | + + + | Address | Unknown | + + + | Phone | Unavailable | + + + Support + + +---------+ + | Name | Relationship | Address | Phone | + + +---------+ + | Kaycee Ferraro | ECON | Unknown | | + + +---------+ + Care Team Providers + +------+ + | Care Suspender Cutter Name | Role | Phone | + [...] | | | | | [address], | | | | | | [place] [address] | | | +--------+ + + + [...] | | | | Patient: TRAVIS FLOYD [facility] Rec: [id number] Sex M Bdate: 1960 | | Date/Time Data | | Entered Into [facility] | | Anesth PostOp | | Surgery Date [id number] 10/05/07 09:21 | | Anesthesiologist NAKITA PEDRAZA 10/05/07 09:21 | | Resident Anesthesiolog ERNA HERNANDEZ 10/05/07 09:21 | | | + + documented in this encounter Visit Diagnoses Not on filedocumented in this encounter"
--- OUTSIDE RECORDS SUMMARY | ~2020-04-08 | XMS | Clinical Summary ---
Demographics + + + | Address | [address] | | | [place] [address] | + + + | Home Phone | | + + + | Preferred Language | Unknown | + + + | Marital Status | Single | + + + | Yarsani Affiliation | CHR | + + + [...] Providers + +------+ + | Care Medical Records Receptionist Name | Role | Phone | + +------+ + | Chery Carrion PA-C | PCP | | + +------+ + Source Comments ADDY is fully live on both [facility] Amb[facility] and [facility] InPatient.[facility] Allergies + + + + + + [...] 2 tablets by | | 0 | 05/0 | | Activ [...] 1 tablet by | | 0 | 05/0 | | Activ [...] + + | Closed right hip fracture | 01/19/2018 | + + + | Closed fracture of right hip, initial encounter | 01/19/2018 | + + + | [...] recent travel history available. | + + Last Filed Vital Signs + [...] | + + + + + | Influenza (Flu) | | 06/22/2018, 07/27/2017, | | | vaccination (#1) | 9 | 07/22/2016, Additional history | | | | | exists | | + + + + + | Pneumococcal | Completed | 05/05/2018, 03/10/2015 | | | vaccination | | | | + + + + + Implants + +------+--------+ +--------+--------+--------+ | Implanted | Type | Area | Manufacture | Device | Shelf | Model | | | | | r | | Expira | / | | | | | | Identi | tion | Serial | | | | | | fier | Date | / Lot | + +------+--------+ +--------+--------+--------+ | Cement Bone Palacos Lv+G | | Right: | JACK | | 01/17/ | [id number] | | Gentamicin 40gm Green - | | Hip | | | 1 | [id number] | | [id number]: Qty: 1 on | | | | | | / | | 01/20/2018 by Ryne Moreland | | | | | | /[id number] | | MD Corin at [facility] | | | | | | 599 | | LOC | | | | | | | + +------+--------+ +--------+--------+--------+ | Cement Bone Palacos R+G | | Right: | JACK | | 09/19/ | [id number] | | Gentamicin 40gm Green - | | Hip | | | 2020 | 88339 | | [id number]: Qty: 1 on | | | | | | / | | 01/20/2018 by Ryne Moreland | | | | | | /[id number] | | MD Corin at [facility] | | | | | | 783 | | LOC | | | | | | | + +------+--------+ +--------+--------+--------+ | Bioprep Bone Preparation | | Right: | LAI | | 10/21/ | [id number] | | KitImplanted: Qty: 1 on | | Hip | | | 2021 | [id number] / | | 01/20/2018 by Ryne Moreland | | | | | | / | | MD Corin at [facility] | | | | | | | | LOC | | | | | | | + +------+--------+ +--------+--------+--------+ | Stem Femoral 11mm Lateralize | | Right: | BIOMET | | 03/03/ | 12-151 | | Echo Fx Cocr Offset Hip - | | Hip | | | 2025 | 411 / | | [id number]: Qty: 1 on | | | | | | /[id number] | | 01/20/2018 by Ryne Moreland | | | | | | 0 | | MD Corin at [facility] | | | | | | | | LOC | | | | | | | + +------+--------+ +--------+--------+--------+ | Centralizer Stem 13mm | | Right: | BIOMET | | 10/05/ | [id number] | | Generation 4 Echo Answer Hip | | Hip | | | 2027 | / | | Distal Pmma Positioner - | | | | | | /[id number] | | [id number]: Qty: 1 on | | | | | | 0 | | 01/20/2018 by Ryne Moreland | | | | | | | | MD Corin at [facility] | | | | | | | | LOC | | | | | | | + +------+--------+ +--------+--------+--------+ | Head Unipolar 49mm Bio-Chisholm | | Right: | BIOMET | | 11/13/ | 12-139 | | Ii Endo Ii Hip Acetabulum | | Hip | | | 2025 | 022 / | | Cocrmo Modular Endoprosthesis | | | | | | /[id number] | | - [id number]: Qty: 1 | | | | | | 0 | | on 01/20/2018 by Aniceto | | | | | | | | Ryne Coombs MD at [facility] | | | | | | | | REV LOC | | | | | | | + +------+--------+ +--------+--------+--------+ | Insert Acetabular Standard | | Right: | BIOMET | | 12/10/ | [id number] | | Hip Tapered Endo Ii - | | Hip | | | 2027 | / | | [id number]: Qty: 1 on | | | | | | /[id number] | | 01/20/2018 by Ryne Moreland | | | | | | 0 | | MD Corin at [facility] | | | | | | | | LOC | | | | | | | + +------+--------+ +--------+--------+--------+ Results Not on filefrom Last 3 Months Insurance + +--------+ +--------+-------+---------+--------+ | Payer | Benefi | Subscriber | Effect | Phone | Address | Type | | | t Plan | ID | corrine | | | | | | / | | Dates | | | | | | Group | | | | | | + +--------+ +--------+-------+---------+--------+ | [employer]ICA[employer] | FRAME BENDER | xxxxxxxx | | | | Medica | | | [place] | | 017-Pr | | | id | | | [place] | | esent | | | | + +--------+ +--------+-------+---------+--------+ | AUTO INS OTHER | AUTO | xxx | 01/20/20 | | | Auto | | | INS | | 18-Pre | | | | | | OTHER | | sent | | | | + +--------+ +--------+-------+---------+--------+ | [employer] [place] | JAVI | [id number] | 12/20/19 | | | Agency | | | | | 08-Pre | | | | | | DEPART | | sent | | | | | | MENT | | | | | | | | OF | | | | | | | | CORREC | | | | | | | | TIONS | | | | | | + +--------+ +--------+-------+---------+--------+ + +--------+ +--------+ + + | Guarantor Name | Accoun | Relation to | Date | Phone | Billing Address | | | t Type | Patient | of | | | | | | | | | | + +--------+ +--------+ + + | TRAVIS FLOYD | Person | Self [birth year] | [address] | | | al/Fam | | 1959 | [phone] | [place] [address] | | | robi | | | 8 (Home) | | + +--------+ +--------+ + + | Travis Floyd | Third | Self | [birth year] | [address] | | | Libertarian | | 1959 | [id number] | [place] [address] | | | Liabil | | | 8 (Home) | | | | ity | | | | | + +--------+ +--------+ + + Advance Directives + + + + + | Code Status | Date | Date | Comments | | | Activated | Inactivated | | + + + + + | Full Code | 01/19/2018 | 01/25/2018 | | | | 10:51 PM | 8:29 PM | | + + + + +
--- OUTSIDE RECORDS SUMMARY | ~2020-04-08 | XMS | Encounter Summary ---
Demographics + + + | Address | [address] | | | [place] [address] | + + + | Home Phone | | + + + | Preferred Language | Unknown | + + + | Marital Status | Single | + + + | Scientologist Affiliation | 1013 | + + + | Race | Unknown | + + + | Ethnic Group | Unknown | + + + Author + + + | Author | [facility] | | | and [place] | + + + | Organization | [facility] | | | [...] Team Providers + +------+ + | Care Research Tech Name | Role | Phone | + +------+ + | Chery Carrion | PCP | | + +------+ + Encounter Details +--------+ + + + + | Date | Type | Department | Care Team | Description | +--------+ + + + + | 06/22/ | Orders Only | [facility] | Courtney Pulido MD | | | 2018 | | [facility] [address] | [address] | | | | | [address] | [place] [address] | | | | | [place], [place] | [phone] | | | | | [address] | | | | | | [phone] | | | +--------+ + + + [...] + + documented as of this encounter Visit Diagnoses Not on filedocumented in this encounter"
--- OUTSIDE RECORDS SUMMARY | ~2020-04-08 | XMS | Encounter Summary ---
Demographics + + + | Address | [address] | | | [place] [address] | + + + | Home Phone | | + + + | Preferred Language | Unknown | + + + | Marital Status | Single | + + + | Episcopal Affiliation | CHR | + + + | Race | White | + + + | Ethnic Group | Not or | + + + Author + + + | Author | [facility] | + + + | Organization | [facility] | + + + | Address | Unknown | + + + | Phone | Unavailable | + + + Support + + +---------+ + | Name | Relationship | Address | Phone | + + +---------+ + | Kaycee Ferraro | ECON | Unknown | | + + +---------+ + Care Team Providers + +------+ + | Care Marketing Manager Health Communications Name | Role | Phone | + +------+ + PCP | Unavailable | + +------+ + Encounter Details +--------+ + + + + | Date | Type | Department | Care Team | Description | +--------+ + + + + | 10/04/ | Results | Orthopaedics | Randall Esparza, | | | 2007 | Only | [facility] at [facility] | [address] | | | | | for Health and | [address] | | | | | Healing [address] | [place], [place] | | | | | e [place] [facility] | [address] | | | | | Health and Healing, | [phone] | | | | | | | | | | | Floor [place], [place] | | | | | | [address] | | | | | | [phone] | | | +--------+ + + + [...] as of this encounter Plan of Treatment + +---------+--------+ + + | Name | Type | Priori | Associated Diagnoses | Date/Time | | | | ty | | | + +---------+--------+ + + | FLUORO OR <= 1 HR | Imaging | Routin | | 10/04/2007 8:55 AM | | | | e | | PST | + +---------+--------+ + + documented as of this encounter Procedures + +--------+ + + + | Procedure Name | Priori | Date/Time | Associated Diagnosis | Comments | | | ty | | | | + +--------+ + + + | X-RAY KNEE 2 VIEWS | Routin | 10/04/2007 | | Results for this | | LEFT | e | 8:55 AM | | procedure are in the | | | | PST | | results section. | + +--------+ + + + documented in this encounter Results KNEE 2 VIEWS LEFT (10/04/2007 8:55 AM PST) + + + + + + | Component | Value | Ref Range | Performed | Pathologist | | | | | At | Signature | + + + + + + | KNEE 2 | Radiologist 1: | | | | | VIEWS LEFT | ANATOLY EVANS, | | | | | | M.NareshSTUDY: | | | | | | Intraoperative AP, | | | | | | lateral views of the | | | | | | left knee | | | | | | 10/04/07COMPARISON: | | | | | | 10/01/07FINDINGS:These | | | | | | images demonstrate | | | | | | examination of the left | | | | | | knee with varusand | | | | | | valgus stress and | | | | | | anterior and posterior | | | | | | drawer tests. | | | | | | Withvarus stress there | | | | | | is widening of the | | | | | | lateral | | | | | | compartment,consistent | | | | | | with lateral ligamentous | | | | | | injury. There appears | | | | | | to be apositive | | | | | | anterior drawer sign | | | | | | with anterior | | | | | | positioning of | | | | | | theproximal tibia with | | | | | | respect to the distal | | | | | | femur on a | | | | | | lateralradiograph. A | | | | | | small ossicle/fragment | | | | | | is noted at the | | | | | | posterioraspect of the | | | | | | knee | | | | | | joint.IMPRESSION:Finding | | | | | | s suggestive of lateral | | | | | | ligamentous injury and | | | | | | ACL tear. | | | | + + + [...]
--- OUTSIDE RECORDS SUMMARY | ~2020-04-08 | XMS | Encounter Summary ---
Demographics + + + | Address | [address] | | | [place] [address] | + + + | Home Phone | | + + + | Preferred Language | Unknown | + + + | Marital Status | Single | + + + | Alevism Affiliation | 1013 | + + + | Race | Unknown | + + + | Ethnic Group | Unknown | + + + Author + + + | Author | [facility] | | | and [place] | + + + | Organization | [facility] | | | and [...] Team Providers + +------+ + | Care Garbage Person Name | Role | Phone | + +------+ + | Alicja Doctor | PCP | | + +------+ + Encounter Details +--------+ + + + + | Date | Type | Department | Care Team | Description | +--------+ + + + + | 09/01/ | Hospital | [facility] | Conversion | Infective discitis; | | 2018 | Encounter | [facility] MRI [address] | Transaction, | Infective | | | | [address] | Provider Unknown | endocarditis of | | | | [place], [place] | [phone] | aortic valve; Back | | | | [address] | | pain, lumbosacral | | | | [phone] | Jean Carlos Grant | | | | | | MD Dylan [address] | | | | | | [address] | | | | | | [place] [address] | | | | | | [phone] | | | | | | | [...] Apply topically 2 | | 0 | 08/16/20 | | | dipropionate 0.05% | (two) [...] + + + +---------+ + + | amiodarone | Take 1 tablet by | 30 | 0 | 06/23/20 | | | (PACERONE) 200 mg | mouth daily. | tablet | | 18 | 9 | | tablet | | | | | | + + + +---------+ + + | aspirin 81 MG EC | Take 1 tablet by | 30 | 0 | 06/22/20 | | | tablet | mouth nightly. | tablet | | 18 | 9 | + + + +---------+ + + | atorvaSTATin | Take 1 tablet by | 30 | 0 | 06/22/20 | | | (LIPITOR) 40 mg | mouth nightly. | tablet | | 18 | 9 | | tablet | | | | | | + + + +---------+ + + | DULoxetine | Take 1 capsule by | 30 | 0 | 06/23/20 | | | (CYMBALTA) [address] | mouth daily. | capsule | | 18 | 9 | | capsule | | | | | | + + + +---------+ + + | ferrous sulfate | Take 1 tablet by | 60 | 0 | 06/22/20 | | | 325 mg tablet | mouth 2 (two) times | tablet | | 18 | 9 | | | daily with meals. | | | | | + + + +---------+ + + | furosemide (LASIX) | Take 1 tablet by | 30 | 0 | 06/23/20 | | | 40 mg tablet | mouth daily. | tablet | | 18 | 9 | + + + +---------+ + + | metoprolol | Take 1 tablet by | 60 | 0 | 06/22/20 | | | tartrate (LOPRESSOR) | mouth 2 (two) times | tablet | | 18 | 9 | | 25 mg tablet | daily. | | | | | + + + +---------+ + + | potassium chloride | Take 1 tablet by | 60 | 0 | 06/22/20 | | | (KLOR-CON M20) 20 | mouth 2 (two) times | tablet | | 18 | 9 | | mEq ER tablet | daily with meals. | | | | | + + + +---------+ + + | SITagliptin | Take 1 tablet by | 30 | 0 | 06/23/20 | | | (JANUVIA) 50 MG | mouth daily. | tablet | | 18 | 9 | | tablet | | | | | | + + + +---------+ + + | warfarin | Take 1 tablet by | 14 | 0 | 06/22/20 | | | (COUMADIN) 5 mg | mouth Once | tablet | | 18 | 9 | | tablet | daily-Coumadin. | | | | | + + [...] | + +--------+ + + + | MRI LUMBAR SPINE WO | Routin | 09/01/2018 | | Results for this | | CONTRAST | e | 1:51 PM | | procedure are in the | | | | PST | | results section. | + +--------+ + + + documented in this encounter Results MRI Lumbar Spine wo Contrast (09/01/2018 1:51 PM PST) + + | Specimen | + + | | + + + + + | Impressions | Performed At | + + + | 1. Irregularity of the endplates at the L4-L5 disc space. There | | | is mild/minimal fluid in the disc space. There is mild edema at the | | | L4 and L5 vertebral bodies which is improved as compared to May 07 | | 2017. Findings are consistent with an episode of improved discitis | | | osteomyelitis. There is unchanged residual endplate destruction. 2. | | | Moderate spinal canal stenosis at L2-L3. 3. Severe neural | | | foraminal narrowing at bilateral L4-L5. 4. Other degenerative | | | findings as described. Electronically signed by Matt Mesa MD on | | | 09/01/2018 2:18 PM | | + + + + + + | Narrative | Performed At | + + + | [facility] 1960 MRI LUMBAR SPINE WO CONTRAST | | | 09/01/2018 1:51 PM INDICATION: Discitis. COMPARISON: April | 2017 TECHNIQUE: Imaging was performed on a 1.5 Zaira MRI | | | system. Multiplanar sequences according to a standard department | | | protocol were acquired without contrast. FINDINGS: Conus ends | | | at L1. No abnormal signal terminal spinal cord. T10-T11: No spinal | | | canal stenosis. Bilateral moderate to severe neural foraminal | | | narrowing. T11-T12: No spinal canal stenosis. Right neural foramen | | | is open. Left mild neural foraminal narrowing. T12-L1: No spinal | | | canal stenosis. No neural foraminal stenosis. Disc desiccation. Mild | | | posterior disc protrusion. L1-L2: Intervertebral disc desiccation. | | | Mild posterior disc protrusion. No spinal canal stenosis. Mild right | | | neural foraminal narrowing. Left neural foramen is open. Facet joints | | | are normal. L2-L3: Intervertebral disc degeneration. Endplate | | | degenerative Modic type II changes. Broad-based posterior disc | | | protrusion. Moderate spinal canal narrowing. Moderate right neural | | | foraminal narrowing. Left mild to moderate neural foraminal narrowing. | | | L3-L4: Intervertebral disc desiccation. Mild posterior disc | | | protrusion. No spinal canal stenosis. Right neural foramen is open. | | | Left moderate neural foraminal narrowing. Mild facet joint | | | arthropathy. L4-L5: There is mild endplate edema of the inferior | | | L4 and superior L5 endplates. There is mild/minimal fluid within the | | | disc space at L4-L5. The bone marrow edema of L4 and L5 is decreased | | | since May 07, 2017. No spinal canal stenosis. There is bilateral | | | severe neural foraminal narrowing. There is bilateral moderate facet | | | joint arthropathy. There is persistent endplate irregularity as seen | | | on prior exams. Mild retrolisthesis of L4 on L5. L5-S1: | | | Intervertebral disc degeneration with disc height preservation. There | | | is mild posterior disc protrusion. No spinal canal stenosis. Mild left | | | neural foraminal narrowing. Right neural foramen is open. | | + + + + + | Procedure Note | + + | Hansel, Rad Conversion - 05/03/2019 11:06 [facility]1960MRI LUMBAR | | SPINE WO NCRDAQOD32/13/2018 1:51 PM INDICATION: Discitis. COMPARISON: May 07, 2018 | | TECHNIQUE:Imaging was performed on a 1.5 Zaira MRI system. Multiplanar sequences | | according to a standard department protocol were acquired without contrast. FINDINGS: | | Conus ends at L1. No abnormal signal terminal spinal cord. T10-T11: No spinal canal | | stenosis. Bilateral moderate to severe neural foraminal narrowing. T11-T12: No spinal | | canal stenosis. Right neural foramen is open. Left mild neural foraminal narrowing. | | T12-L1: No spinal canal stenosis. No neural foraminal stenosis. Disc desiccation. Mild | | posterior disc protrusion. L1-L2: Intervertebral disc desiccation. Mild posterior disc | | protrusion. No spinal canal stenosis. Mild right neural foraminal narrowing. Left neural | | foramen is open. Facet joints are normal. L2-L3: Intervertebral disc degeneration. | | Endplate degenerative Modic type II changes. Broad-based posterior disc protrusion. | | Moderate spinal canal narrowing. Moderate right neural foraminal narrowing. Left mild to | | moderate neural foraminal narrowing. L3-L4: Intervertebral disc desiccation. Mild | | posterior disc protrusion. No spinal canal stenosis. Right neural foramen is open. Left | | moderate neural foraminal narrowing. Mild facet joint arthropathy. L4-L5: There is mild | | endplate edema of the inferior L4 and superior L5 endplates. There is mild/minimal fluid | | within the disc space at L4-L5. The bone marrow edema of L4 and L5 is decreased since | | May 07, 2017. No spinal canal stenosis. There is bilateral severe neural foraminal | | narrowing. There is bilateral moderate facet joint arthropathy. There is persistent | | endplate irregularity as seen on prior exams. Mild retrolisthesis of L4 on L5. L5-S1: | | Intervertebral disc degeneration with disc height preservation. There is mild posterior | | disc protrusion. No spinal canal stenosis. Mild left neural foraminal narrowing. Right | | neural foramen is open. IMPRESSION: 1. Irregularity of the endplates at the L4-L5 disc | | space. There is mild/minimal fluid in the disc space. There is mild edema at the L4 and | | L5 vertebral bodies which is improved as compared to May 07, 2018. Findings are | | consistent with an episode of improved discitis osteomyelitis. There is unchanged | | residual endplate destruction.2. Moderate spinal canal stenosis at L2-L3.3. Severe | | neural foraminal narrowing at bilateral L4-L5.4. Other degenerative findings as | | described. | | | |L5-S1: Intervertebral disc degeneration with disc height preservation. There is mild rental agent ior disc protrusion. No spinal canal stenosis. Mild left neural foraminal narrowing. Right n eural foramen is open. | | | |IMPRESSION: | | | |1. Irregularity of the endplates at the L4-L5 disc space. There is mild/minimal fluid in t he disc space. There is mild edema at the L4 and L5 vertebral bodies which is improved as co mpared to May 07, 2018. | |Findings are consistent with an episode of | |improved discitis osteomyelitis. There is unchanged residual endplate destruction. | |2. Moderate spinal canal stenosis at L2-L3. | |3. Severe neural foraminal narrowing at bilateral L4-L5. | |4. Other degenerative findings as described. | | | | | + + documented in this encounter Visit Diagnoses + + | Diagnosis | + + | Infective discitis Other and unspecified disc disorder of unspecified region | + + | Infective endocarditis of aortic valve | + + | Back pain, lumbosacral Lumbago | + + documented in this encounter"
--- OUTSIDE RECORDS SUMMARY | ~2020-04-08 | XMS | Encounter Summary ---
Demographics + + + | Address | [address] | | | [place] [address] | + + + | Home Phone | | + + + | Preferred Language | Unknown | + + + | Marital Status | Single | + + + | Denominational Affiliation | CHR | + + + | Race | White | + + + | Ethnic Group | Not or | + + + Author + + + | Author | [facility] | + + + | Organization | [facility] | + + + | Address | Unknown | + + + | Phone | Unavailable | + + + Support + + +---------+ + | Name | Relationship | Address | Phone | + + +---------+ + | Kaycee Ferraro | ECON | Unknown | | + + +---------+ + Care Team Providers + +------+ + | Care Oil Operator Name | Role | Phone | + [...] [address] | | | | | [place], [place] | [place], [place] | | | | | [address] | [address] | | | | | [phone] | [phone] | | | | | | | [...]
--- OUTSIDE RECORDS SUMMARY | ~2020-04-08 | XMS | Encounter Summary ---
Demographics + + + | Address | [address] | | | [place] [address] | + + + | Home Phone | | + + + | Preferred Language | Unknown | + + + | Marital Status | Single | + + + | Confucianism Affiliation | CHR | + + + | Race | White | + + + | Ethnic Group | Not or | + + + Author + + + | Author | [facility] | + + + | Organization | [facility] | + + + | Address | Unknown | + + + | Phone | Unavailable | + + + Support + + +---------+ + | Name | Relationship | Address | Phone | + + +---------+ + | Kaycee Ferraro | ECON | Unknown | | + + +---------+ + Care Team Providers + +------+ + | Care Commercial Carpet Installer Name | Role | Phone | + +------+ + | No Pcp Per Patient | PCP | Unavailable | + +------+ + Reason for Visit + + + | Reason | Comments | + + + | New patient | | | consultation | | + + + Consultation (Routine) +--------+--------+ + + + + [...] | CONSULT TO | [address] [place], | | | | | ORTHOPEDICS | Rd | [place] | | | | | AND | [place], [place] | [address] | | | | | REHABILITATI | [address] | Phone: | | | | | ON | | [phone] | | | | | | | Fax: | | | | | | | [phone] | +--------+--------+ + + + + Encounter Details +--------+---------+ + + + | Date | Type | Department | Care Team | Description | +--------+---------+ + + + | 11/27/ | Office | Orthopaedics at | Artis Grajeda MD | Knee Instability | | 2008 | Visit | [facility] [address] | [address] | (Primary Dx); Knee | | | | [address] | [address] | Dislocation | | | | Mailcode: PV430 | [place], [place] | | | | | [facility] | [address] | | | | | [place], [place] | [phone] | | | | | [address] | | | | | | [phone] | | | +--------+---------+ + + + [...] + + + | Blood Pressure | - | - | | + + + + + | Pulse | - | - | | + + + + + | Temperature | 36.1 C (96.9 F) | 11/27/2008 8:41 AM | | | | | PDT | | + + + + + | Respiratory Rate | - | - | | + + + + + | Oxygen Saturation | - | - | | + + + + + | Inhaled Oxygen | - | - | | | Concentration | | | | + + + + + | Weight | 136.1 kg (300 lb) | 11/27/2008 8:41 AM | | | | | PDT | | + + + + + | Height | 175.3 cm (5' 9") | 11/27/2008 8:41 AM | | | | | PDT | | + + + + + | Body Mass Index | 44.3 | 11/27/2008 8:41 AM | | | | | PDT | | + + + + + documented in this encounter Progress Notes Artis Grajeda MD - 11/27/2008 9:20 AM PDT48 yo male inmate s/p left knee dislocation in 02/2008 treated in ex-fix. Developed pin site infections. C/o primarily continued instabili ty. Requires hinged brace for ambulation. Secondarily c/o pain in area of medial patellar facet. Was a low-energy knee dislocation. Patient has a BMI of 44. Has IDDM x15 years with peripheral neuropathy. Developed ARF on indocin, resolved accordin g to the patient. Past Medical History: 1. Insulin-requiring diabetes. 2. Mild chronic kidney disease. 3. Hypertension. 4. Hyperlipidemia. 5. Gastroesophageal reflux. 6. Polyarthralgia. 7. Anxiety disorder. Past Surgical History: ex-fix placement and removal, appendectomy ' Medications: 1. Insulin NPH 34 units q.a.m. and 24 units q.p.m. and insulin regular on a sliding scale. 2. Atenolol 20 mg p.o. daily. 3. Atorvastatin, unknown dose. 4. Hydrochlorothiazide 12.5 mg p.o. daily. 5. Ritalin 10 mg q.a.m., 20 mg at 5 p.m., and 40 mg q.p.m. 6. Vicodin 5/500 mg tablets p.o. q.6 h. p.r.n. pain. 7. Indocin 50 mg p.o. t.i.d. Allergies: IODINE DYE. ROS: reviewed on intake and scanned into epic PE: Temp (Src) 36.1 C (96.9 F) (Oral) | Ht 1.753 m (5' 9") | Wt 136.079 kg (300 lb) Gen: NAD, in shackels with 2 guards CV reg Pulm clear Abd soft Gait: wide-based, essentially normal in brace Neuro: 4/5 left ehl/adf 5/5 otherwise throughout; decreased SILT dorsum of left foot LLE: Ankle/hip rom free and full, Knee arom 0-130, soft end-point on Juju's and PD, so ft endpoint on varus stress, MCL intact, mild TTP MJL Pin sites well healed Integument intact 2+ dp Xrays: ap/lat left knee: Very mild medial JS narrowing, otherwise unremarkable A/p: Continued instability s/p low-energy knee dislocation. He is not a good candidate fo r knee replacement due to age, comorbidities, and poor indication. Recommend continued brac ing for ambulation and focused PT for quad and hamstring strength. documented in this enc ounter Plan of Treatment Not on filedocumented as of this encounter Visit Diagnoses + + | Diagnosis | + + | Knee instability - Primary Other joint derangement, not elsewhere classified, lower | | leg | + + | Knee dislocation Closed dislocation of knee, unspecified part | + + documented in this encounter
--- OUTSIDE RECORDS SUMMARY | ~2020-04-08 | XMS | Encounter Summary ---
Demographics + + + | Address | [address] | | | [place] [address] | + + + | Home Phone [...] Team Providers + +------+ + | Care Public Relations Analyst Name | Role | Phone | + +------+ + | No Pcp Per Patient | PCP | Unavailable | + +------+ + Encounter Details +--------+ + + + + | Date | Type | Department | Care Team | Description | +--------+ + + + + | 11/27/ | Hospital | Diagnostic | | | | 2008 | Encounter | Radiology at [facility] | | | | | | [address] | | | | | | [address] [facility] | | | | | | [place], [address] [place] [address] | | | | | | [place], [place] | | | | | | [address] | | | | | | [phone] | | | +--------+ + + + [...] X-RAY KNEE 2 VIEWS | Routin | 11/27/2008 | Knee Dislocation | Results for this | | LEFT | e | 8:37 AM | | procedure are in the | | | | PDT | | results section. | + +--------+ + + + documented in this encounter Results X-RAY KNEE 2 VIEWS LEFT (11/27/2008 8:37 AM PDT) + + + + + + | Component | Value | Ref Range | Performed | Pathologist | | | | | At | Signature | + + + + + + | KNEE 2 | TWO-VIEW LEFT KNEE: | | | | | VIEWS LEFT | 11/27/2008 Dictated | | | | | | 11/27/2008COMPARISON: | | | | | | 01/04/2008.FINDINGS: | | | | | | There are new | | | | | | calcifications medial to | | | | | | the medial | | | | | | femoralcondyle, | | | | | | consistent with | | | | | | Sofia-Stieda | | | | | | calcifications from | | | | | | priorMCL injury. Old | | | | | | pin tracks in the distal | | | | | | femur and proximal | | | | | | tibiaare redemonstrated. | | | | | | Alignment appears | | | | | | normal. There is a | | | | | | tracejoint effusion. | | | | | | No acute fracture is | | | | | | seen. Mild to moderate | | | | | | medialcompartment | | | | | | degenerative spurring | | | | | | and minimal patellar | | | | | | degenerativespurring are | | | | | | noted, mildly | | | | | | increased.IMPRESSION:1. | | | | | | Mild medial and minima | | | | | | patellofemoral | | | | | | degenerative | | | | | | changes,mildly increased | | | | | | from 01/04/2008.2. | | | | | | Evidence of old MCL | | | | | | injury.3. Trace joint | | | | | | effusion.END IMPRESSIONI | | | | | | have personally viewed | | | | | | this procedure/exam and | | | | | | reviewed this | | | | | | report.Author: DONN | | | | | | Sherine DEL RIOReviewer: DONN | | | | | | Sherine DEL RIOSTATUS FINAL | | | | | | / Dr. DONN GUERRA | | | | | | PRELIMINARY - UNSIGNED / | | | | | | Dr. DONN DEL RIO | | | | + + + [...] Diagnosis | + + | Knee dislocation Closed dislocation of knee, unspecified part | + + documented in this encounter"
--- OUTSIDE RECORDS SUMMARY | ~2020-04-08 | XMS | Encounter Summary ---
Demographics + + + | Address | [address] | | | [place] [address] | + + + | Home Phone | | + + + | Preferred Language | Unknown | + + + | Marital Status | Single | + + + | Buddhism Affiliation | CHR | + + + | Race | White | + + + | Ethnic Group | Not or | + + + Author + + + | Author | [facility] | + + + | Organization | [facility] | + + + | Address | Unknown | + + + | Phone | Unavailable | + + + Support + + +---------+ + | Name | Relationship | Address | Phone | + + +---------+ + | Kaycee Ferraro | ECON | Unknown | | + + +---------+ + Care Team Providers + +------+ + | Care Lumber Carrier Operator Name | Role | Phone | + +------+ + | No Pcp Per Patient | PCP | Unavailable | + +------+ + Reason for Visit AUTH/CERT +--------+--------+ + + + + | Status | Reason | Specialty | Diagnoses / | Referred By | Referred To | | | | | Procedures | Contact | Contact | +--------+--------+ + + + + | Closed | | | | | [facility] | | | | | | | [address] | | | | | | | [address] | | | | | | | Mailcode: [facility] | | | | | | | [facility] | | | | | | | for [facility] | | | | | | | and Healing, | | | | | | | [address] | | | | | | | [place], [place] | | | | | | | [address] | | | | | | | Phone: | | | | | | | [phone] | | | | | | | Fax: | | | | | | | [phone] | +--------+--------+ + + + + Encounter Details +--------+ + + + + | Date | Type | Department | Care Team | Description | +--------+ + + + + | 01/03/ | Hospital | [facility] | Randall Esparza, | | | 2007 | Encounter | ST[address] | [address] [facility] | | | | | Rupal Mailcode: [facility] | [address] | | | | | [facility] | [place], [place] | | | | | Health and Healing, | [address] | | | | | [place] [address] | [phone] | | | | | [place], [place] | | | | | | [address] | | | | | | [phone] | | | +--------+ + + + [...] + + + | Blood Pressure | 166/102 | 01/04/2008 2:23 PM | | | | | PDT | | + + + + + | Pulse | 102 | 01/04/2008 2:23 PM | | | | | PDT | | + + + + + | Temperature | 36.8 C (98.2 F) | 01/04/2008 12:45 PM | | | | | PDT | | + + + + + | Respiratory Rate | 16 | 01/04/2008 2:23 PM | | | | | PDT | | + + + + + | Oxygen Saturation | 95% | 01/04/2008 2:23 PM | | | | | PDT | | + + + + + | Inhaled Oxygen | - | - | | | Concentration | | | | + + + + + | Weight | 136.1 kg (300 lb) | 01/04/2008 9:23 AM | | | | | PDT | | + + + + + | Height | 175.3 cm (5' 9") | 01/04/2008 9:23 AM | | | | | PDT | | + + + + + | Body Mass Index | 44.3 | 01/04/2008 9:23 AM | | | | | PDT | | + + + + + documented in this encounter Discharge Summaries Randall Esparza - 01/04/2008 3:00 PM PDT Electronically signed by Randall Esaprza at 7:44 PM PDTdocumented in this encounter Discharge Instructions Instructions Cathy Cardenas - 01/04/2008 Expected nursing outcomes met PADDS:9 Discharge instructions:Home care after knee arthroscopy; Drs orders written for [facility] All questions answered Last pain medication:1430 oxycodone 10 mg by mouth All possessions returned Information given on how to contact care providers if concerns or signs of infection arise documented in this encounter Plan of Treatment Not on filedocumented as of this encounter Procedures + +--------+ + + + | Procedure Name | Priori | Date/Time | Associated Diagnosis | Comments | | | ty | | | | + +--------+ + + + | ANESTHESIA/SEDATION | | 01/04/2008 | | Results for this | | | | 3:00 PM | | procedure are in the | | | | PDT | | results section. | + +--------+ + + + | ANESTHESIA/SEDATION | | 01/04/2008 | | Results for this | | | | 3:00 PM | | procedure are in the | | | | PDT | | results section. | + +--------+ + + + | ANESTHESIA/SEDATION | | 01/04/2008 | | Results for this | | | | 3:00 PM | | procedure are in the | | | | PDT | | results section. | + +--------+ + + + | ORDERS OTHER | | 01/04/2008 | | Results for this | | | | 3:00 PM | | procedure are in the | | | | PDT | | results section. | + +--------+ + + + | X-RAY KNEE 2 VIEWS | Routin | 01/04/2008 | | Results for this | | LEFT | e | 1:39 PM | | procedure are in the | | | | PDT | | results section. | + +--------+ + + + | OPERATION RECORD | | 01/04/2008 | | Results for this | | | | 12:00 AM | | procedure are in the | | | | PDT | | results section. | + +--------+ + + + documented in this encounter Results ANESTHESIA/SEDATION (01/04/2008 3:00 PM PDT) + + + | Narrative | Performed At | + + + | | | + + + + + | Procedure Note | + + | Randall Esparza MD - 01/04/2008 3:00 PM PDT | + + ANESTHESIA/SEDATION (01/04/2008 3:00 PM PDT) + + + | Narrative | Performed At | + + + | | | + + + + + | Procedure Note | + + | Randall Esparza MD - 01/04/2008 3:00 PM PDT | + + ORDERS OTHER (01/04/2008 3:00 PM PDT) + + + | Narrative | Performed At | + + + | | | + + + + + | Procedure Note | + + | Randall Esparza MD - 01/04/2008 3:00 PM PDT | + + ANESTHESIA/SEDATION (01/04/2008 3:00 PM PDT) + + + | Narrative | Performed At | + + + | | | + + + + + | Procedure Note | + + | Randall Esparza MD - 01/04/2008 3:00 PM PDT | + + X-RAY KNEE 2 VIEWS LEFT (01/04/2008 1:39 PM PDT) + + + + + + | Component | Value | Ref Range | Performed | Pathologist | | | | | At | Signature | + + + + + + | KNEE 2 | Med Rec No:[id number] | | | | | VIEWS LEFT | Name: | | | | | | MARIELTRAVIS | | | | | | Birthday: 1960 | | | | | | Sex: M | | | | | | Alias:Patient Location: | | | | | | [facility]: | | | | | | OutpatientOrdering | | | | | | Physician: ANDREAHERZKA, | | | | | | M.D.IHO3KNEYD 2 VIEWS | | | | | | LEFT completed on | | | | | | 01/04/2008 1:43 | | | | | | PMAccession | | | | | | #[id number]:LEFT | | | | | | KNEE, TWO VIEWS: | | | | | | 01/04/2008 Dictated | | | | | | 01/04/2008COMPARISON: | | | | | | 10/05/2007FINDINGS: | | | | | | The external fixation | | | | | | pins have been removed | | | | | | from thedistal femur and | | | | | | proximal tibia. The | | | | | | bones are osteopenic. | | | | | | Thepreviously noted | | | | | | ossicle posterior to the | | | | | | tibial plateau is no | | | | | | longerclearly seen. | | | | | | There is again mild | | | | | | asymmetric widening of | | | | | | the lateralfemorotibial | | | | | | joint space. There is | | | | | | a small knee joint | | | | | | effusion.Soft tissue | | | | | | swelling persists around | | | | | | the knee.IMPRESSION:1. | | | | | | Interval removal of | | | | | | external fixation | | | | | | pins.2. Mild | | | | | | asymmetric widening of | | | | | | lateral femorotibial | | | | | | joint space,suggesting | | | | | | lateral ligamentous | | | | | | injury.3. Residual | | | | | | small joint effusion and | | | | | | periarticular soft | | | | | | tissueswelling.END | | | | | | IMPRESSIONI have | | | | | | personally viewed this | | | | | | procedure/exam and | | | | | | reviewed this | | | | | | report.STATUS FINAL / | | | | | | Dr. NIELS LAKHANI | | | | | | PRELIMINARY - UNSIGNED / | | | | | | [facility] | | | | + + + + + + + + | Specimen | + + | | + + + +---------+ + + | Performing | Address | City/State/Zipcode | Phone Number | | Organization | | | | + +---------+ + + | [facility] | | | | [facility] | | | | + +---------+ + + OPERATION RECORD (01/04/2008 12:00 AM PDT) + + | Procedure Note | + + | Rnadall Esparza MD - 01/04/2008 12:00 AM PDT [id number] | | [id number] [place] [id number] | | Date: 01/04/2008 Attending Surgeon: Randall Esparza M.D. Gaming Dealer(s): | | Louise Raza M.D. Preoperative Diagnosis(es): Left knee dislocation, status post | | treatment in external fixator. Postoperative Diagnosis(es): Left knee dislocation, | | status post treatment in external fixator. Procedures Performed: Removal of external | | fixator, left lower extremity; manipulation, left knee, under anesthesia. EBL: | | Minimal. Complications: None noted. Indications: This is a 47-year-old man, who | | sustained a knee dislocation and was treated at [facility]. He was managed with an external | | fixator for just over 7 weeks. It was felt that this was adequate duration, and it was | | planned to proceed with removal of the external fixator device. The risks and benefits | | were discussed, and he wished proceed. Procedure: The patient was seen in the | | preoperative holding area. The surgical site was identified and marked. A dose of | | intravenous antibiotic was administered. The patient was brought back to the operating | | room and placed supine on the operating room table. General anesthesia was induced | | without complication. The external fixator device was removed. The bone tunnels were | | curetted to remove all fibrinous tissue. Dry dressings were applied. The knee was | | extremely stiff in flexion and extension. Range of motion was obtained from 3 to 110 | | degrees. At this point, it was felt that any attempts for further flexion would cause | | risk of fracture, and the decision was made to accept 110 degrees. Sterile dressings | | were applied. The patient was placed in a knee brace locked in extension. He was | | transported to the PACU in a stable condition. I was present for all critical portions | | of this case. Discharge Instructions: The patient is weight bearing as tolerated | | with the knee brace locked in extension. He should remove the brace several times a day | | to do unlimited range of motion of the knee. We will see him back in the office in 10 | | days for followup. Randall Esparza M.D. / [id number] / [id number] / | | [id number] / | | | | EBL: | | Minimal. | | | | | | Complications: | | None noted. | | | | | | Indications: | | This is a 47-year-old man, who sustained a knee dislocation and was treated | | at [facility]. He was managed with an external fixator for just over 7 weeks. | | It was felt that this was adequate duration, and it was planned to proceed | | with removal of the external fixator device. The risks and benefits were | | discussed, and he wished proceed. | | | | | | Procedure: | | The patient was seen in the preoperative holding area. The surgical site | | was identified and marked. A dose of intravenous antibiotic was | | administered. The patient was brought back to the operating room and | | placed supine on the operating room table. General anesthesia was induced | | without complication. The external fixator device was removed. The bone | | tunnels were curetted to remove all fibrinous tissue. Dry dressings were | | applied. The knee was extremely stiff in flexion and extension. Range of | | motion was obtained from 3 to 110 degrees. At this point, it was felt that | | any attempts for further flexion would cause risk of fracture, and the | | decision was made to accept 110 degrees. Sterile dressings were applied. | | The patient was placed in a knee brace locked in extension. He was | | transported to the PACU in a stable condition. I was present for all | | critical portions of this case. | | | | | | Discharge Instructions: | | The patient is weight bearing as tolerated with the knee brace locked in | | extension. He should remove the brace several times a day to do unlimited | | range of motion of the knee. We will see him back in the office in 10 days | | for followup. | | | | | | | | | | | | | | | | | | Randall Esparza M.D. | | | | | | / | | [id number] / [id number] / [id number] / | | | | | | | | | | | | | | | | | | | | | | | + + documented in this encounter Visit Diagnoses Not on filedocumented in this encounter
--- OUTSIDE RECORDS SUMMARY | ~2020-04-08 | XMS | Encounter Summary ---
Demographics + + + | Address | [address] | | | [place] [address] | + + + | Home Phone | | + + + | Preferred Language | Unknown | + + + | Marital Status | Single | + + + | Yazidism Affiliation | CHR | + + + [...] Team Providers + +------+ + | Care Brass Cleaner Name | Role | Phone | + [...] [address] | | | | | [place], [place] | [place], [place] | | | | | [address] | [address] | | | | | [phone] | [phone] | | | | | | | [...]
--- OUTSIDE RECORDS SUMMARY | ~2020-04-08 | XMS | Encounter Summary ---
Demographics + + + | Address | [address] | | | [place] [address] | + + + | Home Phone | | + + + | Preferred Language | Unknown | + + + | Marital Status | Single | + + + | Yazidi Affiliation | 1013 | + + + | Race | Unknown | + + + | Ethnic Group | Unknown | + + + Author + + + | Author | [facility] | | | and [place] | + + + | Organization | [facility] | | [...] Team Providers + +------+ + | Care Trailer Mechanic Name | Role | Phone | + +------+ + | Chery Carrion | PCP | | + +------+ + Encounter Details +--------+ + + + + | Date | Type | Department | Care Team | Description | +--------+ + + + + | 05/16/ | Orders Only | [facility] | Conversion | | | 2018 | | [address] | Transaction, | | | | | [place] | Provider Unknown | | | | | [address] | [phone] | | | | | [phone] | | | +--------+ + + + [...] | + +--------+ + + + | HIV 1 SCREEN, RAPID | Routin | 05/16/2018 | | Results for this | | | e | 9:14 AM | | procedure are in the | | | | PDT | | results section. | + +--------+ + + + | HEPATITIS C AB | Routin | 05/16/2018 | | Results for this | | | e | 9:14 AM | | procedure are in the | | | | PDT | | results section. | + +--------+ + + + | HEPATITIS B CORE AB, | Routin | 05/16/2018 | | Results for this | | TOTAL | e | 9:14 AM | | procedure are in the | | | | PDT | | results section. | + +--------+ + + + | HEPATITIS B SURFACE | Routin | 05/16/2018 | | Results for this | | AG | e | 9:14 AM | | procedure are in the | | | | PDT | | results section. | + +--------+ + + + documented in this encounter Results HIV 1 Screen, Rapid (05/16/2018 9:14 AM PDT) + + + + + + | Component | Value | Ref Range | Performed | Pathologist | | | | | At | Signature | + + + + + + | HIV 1 and 2 | NON REACTIVE | | EXTERNAL | | | Ab Rapid | | | LAB | | + + + + + + + + | Specimen | + + | | + + + + + | Narrative | Performed At | + + + | Attending/Visit Provider: , SANDRA LUJAN, (EMPLOYEE, [employer]), , , | EXTERNAL LAB | | Brittany HERRERA Provider: , SANDRA LUJAN, (EMPLOYEE, [employer]), , , | | | [place], | | + + + + +---------+ + + | Performing | Address | City/State/Zipcode | Phone Number | | Organization | | | | + +---------+ + + | EXTERNAL LAB | | | | + +---------+ + + Hepatitis C Ab (05/16/2018 9:14 AM PDT) + + + + + + | Component | Value | Ref Range | Performed | Pathologist | | | | | At | Signature | + + + + + + | HCV Ab | REACTIVE (A)Comment: | | EXTERNAL | | | | Possible Acute or | | LAB | | | | Chronic HCV infection. | | | | | | False positive screen | | | | | | reactions are known to | | | | | | occur. Quantitative HCV | | | | | | RNA by PCR is | | | | | | recommended for | | | | | | confirmation. THIS IS | | | | | | A REPORTABLE DISEASE. | | | | | | PLEASE CONTACT YOUR | | | | | | [facility] | | | | | | DEPARTMENT. | | | | + + + + + + + + | Specimen | + + | | + + + + + | Narrative | Performed At | + + + | Attending/Visit Provider: , SANDRA LUJAN, (EMPLOYEE, [employer]), , , | EXTERNAL LAB | | [place], Ordering Provider: , SANDRA LUJAN, (EMPLOYEE, [employer] [employer]), , , | | | [place], | | + + + + +---------+ + + | Performing | Address | City/State/Zipcode | Phone Number | | Organization | | | | + +---------+ + + | EXTERNAL LAB | | | | + +---------+ + + Hepatitis B Core Ab, Total (05/16/2018 9:14 AM PDT) + + + + + + | Component | Value | Ref Range | Performed | Pathologist | | | | | At | Signature | + + + + + + | Hepatitis B | NON REACTIVE | | EXTERNAL | | | Core Ab | | | LAB | | | Total | | | | | + + + + + + + + | Specimen | + + | | + + + + + | Narrative | Performed At | + + + | Attending/Visit Provider: , SANDRA LUJAN, (EMPLOYEE, [employer]), , , | EXTERNAL LAB | | Brittany HERRERA Provider: , SANDRA LUJAN, (EMPLOYEE, [employer]), , , | | | [place], | | + + + + +---------+ + + | Performing | Address | City/State/Zipcode | Phone Number | | Organization | | | | + +---------+ + + | EXTERNAL LAB | | | | + +---------+ + + Hepatitis B Surface Ag (05/16/2018 9:14 AM PDT) + + + + + + | Component | Value | Ref Range | Performed | Pathologist | | | | | At | Signature | + + + + + + | HEP B | NON REACTIVE | | EXTERNAL | | | SURFACE | | | LAB | | | ANTIBODY | | | | | + + + + + + + + | Specimen | + + | | + + + + + | Narrative | Performed At | + + + | Attending/Visit Provider: , SANDRA LUJAN, (EMPLOYEE, [employer]), , , | EXTERNAL LAB | | [place], Brittany Provider: , SANDRA LUJAN, (EMPLOYEE, [employer]), , , | | | [place], | | + + + + +---------+ + + | Performing | Address | City/State/Zipcode | Phone Number | | Organization | | | | + +---------+ + + | EXTERNAL LAB | | | | + +---------+ + + documented in this encounter Visit Diagnoses Not on filedocumented in this encounter"
--- OUTSIDE RECORDS SUMMARY | ~2020-04-08 | XMS | Encounter Summary ---
Demographics + + + | Address | [address] | | | [place] [address] | + + + | Home Phone | | + + + | Preferred Language | Unknown | + + + | Marital Status | Single | + + + | Presybeterian Affiliation | CHR | + + + | Race | White | + + + | Ethnic Group | Not or | + + + Author + + + | Author | [facility] | + + + | Organization | [facility] | + + + | Address | Unknown | + + + | Phone | Unavailable | + + + Support + + +---------+ + | Name | Relationship | Address | Phone | + + +---------+ + | Kaycee Ferraro | ECON | Unknown | | + + +---------+ + Care Team Providers + +------+ + | Care Machine Stripper Cutter Name | Role | Phone | [...] [address] [address] | | | | | [address] | [place], [place] | | | | | [address], [address] | [address] | | | | | [address] [address], | [phone] | | | | | [address] | | | | | | [facility] [place] | | | | | | [address] | | | | | | [phone] | | | +--------+ + + + [...]
--- OUTSIDE RECORDS SUMMARY | ~2020-04-08 | XMS | Encounter Summary ---
Demographics + + + | Address | [address] | | | [place] [address] | + + + | Home Phone | | + + + | Preferred Language | Unknown | + + + | Marital Status | Single | + + + | Jehovah'S Witness Affiliation | CHR | + + + | Race | White | + + + | Ethnic Group | Not or | + + + Author + + + | Author | [facility] | + + + | Organization | [facility] | + + + | Address | Unknown | + + + | Phone | Unavailable | + + + Support + + +---------+ + | Name | Relationship | Address | Phone | + + +---------+ + | Kaycee Ferraro | ECON | Unknown | | + + +---------+ + Care Team Providers + +------+ + | Care Medical Records Library Professor Name | Role | Phone | + [...] | +--------+ + + + + | // | Anesthesia | 6A Intra Op 3181 | Martín Ford, | | | 2018 | Event | [address] | MD [address] | | | | | [facility] | [address] | | | | | [facility] | [place], [place] | | | | | Desk Located on the | [address] | | | | | 9th floor | [phone] | | | | | [place], [place] | | | | | | [address] | | | +--------+ + + + + Anesthesia Record + + + + + | Procedure Name | Responsible | Anesthesia Start | Anesthesia Stop Time | | | Anesthesiologist | Time | | + + + + + | RIGHT HIP | Martín Ford MD | 01/20/18 1219 | 01/20/18 1451 | | HEMIARTHROPLASTY | | | | | (Right Hip) | | | | + + + + + +----+---+ + + | Da | T | Event | Comment | | te | i | | | | | m | | | | | e | | | +----+---+ + + | 05 | 1 | Eq Check | Anesthesia machine checked Equipment verified | | /0 | 2 | | | | 3/ | 1 | | | | 20 | 9 | | | | 18 | | | | +----+---+ + + | | 1 | Pt. Check | Prior to anesthesia start, pt. Identified, examined, chart | | | 2 | | reviewed, PARQ held, anesthetic plan made or approved by | | | 1 | | attending anesthesiologist. NPO status confirmed as appropriate | | | 9 | | for procedure Preoperative evaluation: unchanged | +----+---+ + + | | 1 | An Start | | | | 2 | | | | | 1 | | | | | 9 | | | +----+---+ + + | | 1 | An Start | | | | 2 | Data | | | | 1 | | | | | 9 | | | +----+---+ + + | | 1 | Vitals | Monitors applied Vital signs checked Patient ready for anesthesia | | | 2 | Checked | | | | 2 | | | | | 1 | | | +----+---+ + + | | 1 | ETT | | | | 2 | | | | | 2 | | | | | 5 | | | +----+---+ + + | | 1 | Ready | | | | 2 | | | | | 2 | | | | | 8 | | | +----+---+ + + | | 1 | Abx | | | | 2 | Administere | | | | 5 | d | | | | 1 | | | +----+---+ + + | | 1 | Timeout | | | | 3 | | | | | 0 | | | | | 5 | | | +----+---+ + + | | 1 | Incision | | | | 3 | | | | | 0 | | | | | 5 | | | +----+---+ + + | | 1 | Surgery end | | | | 4 | | | | | 3 | | | | | 2 | | | +----+---+ + + | | 1 | An Extubate | Neuromuscular function Intact. Pharynx suctioned. Patient obeys | | | 4 | | commands. Adequate pulmonary mechanics. | | | 4 | | | | | 0 | | | +----+---+ + + | | 1 | an stop | | | | 4 | data | | | | 4 | | | | | 1 | | | +----+---+ + + | | 1 | PACU Rpt | | | | 4 | Given | | | | 5 | | | | | 1 | | | +----+---+ + + | | 1 | Anesthesia | | | | 4 | End | | | | 5 | | | | | 1 | | | +----+---+ + + +------+ | Meds | +------+ + + + | Name | Total | + + + | fentaNYL | 250 mcg | + + + | PHENYLEPHrine | 300 mcg | + + + | ePHEDrine | 10 mg | + + + | lidocaine 2% | 60 mg | + + + | propofol | 150 mg | + + + | rocuronium | 50 mg | + + + | glycopyrrolate | 0.4 mg | + + + | neostigmine | 3 mg | + + + | ondansetron | 4 mg | + + + | ceFAZolin | 3,000 mg | + + + | PHENYLEPHrine INF (50 mg/250 mL) | 2,380 mcg | + + + | LR | 1,600 mL | + + + + + | Name | + + | O2 FR Avance (Total Liters) | + + | Air FR Avance (l/min) | + + | Insp Sevo | + + | Et Sevo | + + + + | No blood administrations on file. | + + +--------+ + + + | Type | Details | Placement | Removal | +--------+ + + + | Fabii | 01/20/18; 1327; Dr. Moreland; | 01/20/18 1327 by | | | on | Right; Lateral; hip | Alina Martinez RN | | +--------+ + + + | Periph | 01/19/18; Other hospital; Right; | 01/19/18 0000 by | 01/21/18 1649 by | | eral | 16 g; 01/21/18; 1648 | Paty Mejia RN | Pete Chino RN | | IV | | | | +--------+ + + + | Periph | 01/19/18; Other hospital; Left; | 01/19/18 0000 by | 01/25/18 1354 by | | eral | 18 g; Positive; 01/25/18; 1354; | Paty Mejia RN | France Corrales RN | | IV | Discharge | | | +--------+ + + + | Urethr | 01/19/18; Other hospital; [place]; | 01/19/18 0000 by | 01/21/18 1020 by | | al | 01/21/18; 1020; Per order, Per | Paty Mejia RN | Za Kelley CNA | | Humberto | protocol | | | | er | | | | +--------+ + + + documented in this encounter Social History + +-------+ +--------+ + | [...] | + +--------+ + + + | RAUL ETT | Routin | 01/20/2018 | | Results for this | | | e | 8:02 PM | | procedure are in the | | | | PDT | | results section. | + +--------+ + + + documented in this encounter Results RAUL ETT (01/20/2018 8:02 PM PDT) + + + | Narrative | Performed At | + + + | Yumiko Rivera CRNA 01/20/2018 1:03 PM Procedure | | | Reason for Intubation: For surgical procedure, Location Performed: [place] | | | , Patient was preoxygenated Mask Ventilation Grade 2 - Ventilated | | | by mask with oral airway/adjuvant Intubation Blade type: Joe , | | | Blade size: 2, Atraumatic laryngoscopy: Atraumatic Laryngoscopy, | | | Intubation adjuncts: N/A , Laryngoscopic view: Grade I, Fiberoptics | | | used: N/A , Number of Attempts: 1, Positive for EtCO2: Yes, Breath | | | sounds: Bilateral and equal ETT Ett Adult: Single-lumen | | | cuffed ETT Size: 7.5 Depth at Lip: 22 Cm Narrative | | | Attending physically present | | + + + documented in this encounter Visit Diagnoses Not on filedocumented in this encounter Administered Medications + +--------+ + +------+------+ | Medication Order | MAR | Action | Dose | Rate | Site | | | Action | Date | | | | + +--------+ + +------+------+ | ceFAZolin (ANCEF) injection | Given | 01/21/20 | 3,000 mg | | | | intravenous, INTRAPROCEDURE PRN, | | 18 12:51 | | | | | Starting Gabrielle 01/20/18 at 1251, | | PM PDT | | | | | Until Gabrielle 01/20/18 at 1441 | | | | | | + +--------+ + +------+------+ +---+---+ | | | +---+---+ + +-------+ +-------+---+---+ | ePHEDrine injection | Given | 01/21/20 | 10 mg | | | | intravenous, INTRAPROCEDURE PRN, | | 18 12:40 | | | | | Starting Gabrielle 01/20/18 at 1240, | | PM PDT | | | | | Until Gabrielle 01/20/18 at 1441 | | | | | | + +-------+ +-------+---+---+ +---+---+ | | | +---+---+ + +-------+ +--------+---+---+ | fentaNYL citrate (PF) | Given | 01/21/20 | 50 mcg | | | | (SUBLIMAZE) injection | | 18 2:47 | | | | | INTRAPROCEDURE PRN, Starting Gabrielle | | PM PDT | | | | | 01/20/18 at 1219, Until Gabrielle 01/20/18 | | | | | | | at 1441 | | | | | | + +-------+ +--------+---+---+ +-------+ +---------+---+---+ | Given | 01/21/20 | 50 mcg | | | | | 18 1:09 | | | | | | PM PDT | | | | +-------+ +---------+---+---+ | Given | 01/21/20 | 100 mcg | | | | | 18 12:22 | | | | | | PM PDT | | | | +-------+ +---------+---+---+ +---+---+ | | | +---+---+ + +-------+ +--------+---+---+ | glycopyrrolate (LARY) | Given | 01/21/20 | 0.4 mg | | | | injection INTRAPROCEDURE PRN, | | 18 2:31 | | | | | Starting Gabrielle 01/20/18 at 1431, | | PM PDT | | | | | Until Gabrielle 01/20/18 at 1441 | | | | | | + +-------+ +--------+---+---+ +---+---+ | | | +---+---+ + + + +---+---+---+ | lactated Ringers IV | given by | 01/21/20 | | | | | INTRAPROCEDURE CONTINUOUS PRN, | | 18 2:51 | | | | | Starting Gabrielle 01/20/18 at 1219, | anesthes | PM PDT | | | | | Until Gabrielle 01/20/18 at 1441 | iology | | | | | + + + +---+---+---+ +---------+ +---+---+---+ | New Bag | 01/21/20 | | | | | | 18 2:17 | | | | | | PM PDT | | | | +---------+ +---+---+---+ | New Bag | 01/21/20 | | | | | | 18 12:19 | | | | | | PM PDT | | | | +---------+ +---+---+---+ +---+---+ | | | +---+---+ + +-------+ +-------+---+---+ | lidocaine PF (XYLOCAINE MPF) 20 | Given | 01/21/20 | 60 mg | | | | mg/mL (2 %) injection | | 18 12:23 | | | | | INTRAPROCEDURE PRN, Starting Gabrielle | | PM PDT | | | | | 01/20/18 at 1223, Until Gabrielle 01/20/18 | | | | | | | at 1441 | | | | | | + +-------+ +-------+---+---+ +---+---+ | | | +---+---+ + +-------+ +------+---+---+ | neostigmine (PROSTIGMIN) | Given | 01/21/20 | 3 mg | | | | injection intravenous, | | 18 2:31 | | | | | INTRAPROCEDURE PRN, Starting Gabrielle | | PM PDT | | | | | 01/20/18 at 1431, Until Gabrielle 01/20/18 | | | | | | | at 1441 | | | | | | + +-------+ +------+---+---+ +---+---+ | | | +---+---+ + +-------+ +------+---+---+ | ondansetron (ZOFRAN) injection | Given | 01/21/20 | 4 mg | | | | INTRAPROCEDURE PRN, Starting Gabrielle | | 18 2:31 | | | | | 01/20/18 at 1431, Until Gabrielle 01/20/18 | | PM PDT | | | | | at 1441 | | | | | | + +-------+ +------+---+---+ +---+---+ | | | +---+---+ + +-------+ +---------+---+---+ | PHENYLEPHrine 100 mcg/mL IV | Given | 01/21/20 | 100 mcg | | | | syringe INTRAPROCEDURE PRN, | | 18 12:53 | | | | | Starting Gabrielle 01/20/18 at 1253, | | PM PDT | | | | | Until Gabrielle 01/20/18 at 1441 | | | | | | + +-------+ +---------+---+---+ +-------+ +---------+---+---+ | Given | 01/21/20 | 100 mcg | | | | | 18 12:42 | | | | | | PM PDT | | | | +-------+ +---------+---+---+ | Given | 01/21/20 | 100 mcg | | | | | 18 12:28 | | | | | | PM PDT | | | | +-------+ +---------+---+---+ +---+---+ | | | +---+---+ + + + + +-------+---+ | PHENYLEPHrine 50 mg/250 mL (0.2 | Rate/Dos | 01/21/20 | 0.2 | 8.16 | | | mg/mL) IV infusion (ADC) | e Change | 18 1:30 | mcg/kg/m | mL/hr | | | intravenous, INTRAPROCEDURE | | PM PDT | in | | | | CONTINUOUS PRN, Starting Gabrielle | | | | | | | 01/20/18 at 1257, Until Gabrielle 01/20/18 | | | | | | | at 1441 | | | | | | + + + + +-------+---+ + + + +--------+---+ | Restarted | 01/21/20 | 0.1 | 4.08 | | | | 18 1:27 | mcg/kg/m | mL/hr | | | | PM PDT | in | | | + + + +--------+---+ | New Bag | 01/21/20 | 0.4 | 16.32 | | | | 18 12:57 | mcg/kg/m | mL/hr | | | | PM PDT | in | | | + + + +--------+---+ +---+---+ | | | +---+---+ + +-------+ +--------+---+---+ | propofol INTRAPROCEDURE PRN, | Given | 01/21/20 | 150 mg | | | | Starting Gabrielle 01/20/18 at 1223, | | 18 12:23 | | | | | Until Gabrielle 01/20/18 at 1441 | | PM PDT | | | | + +-------+ +--------+---+---+ +---+---+ | | | +---+---+ + +-------+ +-------+---+---+ | rocuronium (ZEMURON) injection | Given | 01/21/20 | 50 mg | | | | INTRAPROCEDURE PRN, Starting Gabrielle | | 18 12:23 | | | | | 01/20/18 at 1223, Until Gabrielle 01/20/18 | | PM PDT | | | | | at 1441 | | | | | | + +-------+ +-------+---+---+ +---+---+ | | | +---+---+ documented in this encounter"
--- OUTSIDE RECORDS SUMMARY | ~2020-04-08 | XMS | Encounter Summary ---
Demographics + + + | Address | [address] | | | [place] [address] | + + + | Home Phone | | + + + | Preferred Language | Unknown | + + + | Marital Status | Single | + + + | Judaism Affiliation | CHR | + + + | Race | White | + + + | Ethnic Group | Not or | + + + Author + + + | Author | [facility] | + + + | Organization | [facility] | + + + | Address | Unknown | + + + | Phone | Unavailable | + + + Support + + +---------+ + | Name | Relationship | Address | Phone | + + +---------+ + | Kaycee Ferraro | ECON | Unknown | | + + +---------+ + Care Team Providers + +------+ + | Care Adobe Layer Helper Name | Role | Phone | + [...] [address] | | | | | [facility] | [address] | | | | | [facility] Admitting | [place], [place] | | | | | Desk Located on the | [address] | | | | | 9th floor | [phone] | | | | | [place], [place] | | | | | | [address] | | | +--------+ + + + [...] + | Urethr | 01/19/18; Other hospital; [place]; | 01/19/18 0000 by | 01/21/18 1020 [...]
--- OUTSIDE RECORDS SUMMARY | ~2020-04-08 | XMS | Encounter Summary ---
Demographics + + + | Address | [address] | | | [place] [address] | + + + | Home Phone [...] Team Providers + +------+ + | Care Party Chief Name | Role | Phone | + +------+ + PCP | Unavailable | + +------+ + Encounter Details +--------+ + + + + | Date | Type | Department | Care Team | Description | +--------+ + + + + | 11/30/ | DELETED | | Other, Faculty | Pre-Op Paperwork | | 2007 | TRANSCRIPTI | | [phone] | | | | ON | | | | +--------+ + + [...]
--- OUTSIDE RECORDS SUMMARY | ~2020-04-08 | XMS | Encounter Summary ---
Demographics + + + | Address | [address] | | | [place] [address] | + + + | Home Phone [...] Author + + + | Author | [facility] | + + + | Organization | [facility] | + + + | Address | Unknown | + + + | Phone | Unavailable | + + + Support + + +---------+ + | Name | Relationship | Address | Phone | + + +---------+ + | Kaycee Ferraro | ECON | Unknown | | + + +---------+ + Care Team Providers + +------+ + | Care Elementary Art Teacher Name | Role | Phone | + +------+ + PCP | Unavailable | + +------+ + Encounter Details +--------+ + + + + | Date | Type | Department | Care Team | Description | +--------+ + + + + | 10/04/ | Results | Orthopaedics | Randall Esparza, | | | 2007 | Only | Faculty at [place] | [address] | | | | | for Health and | [address] | | | | | Healing [address] | [place], [place] | | | | | e [place] for | [address] | | | | | Health and Healing, | [phone] | | | | | | | | | | | Floor [place], [place] | | | | | | [address] | | | | | | [phone] | | | +--------+ + + + [...]
--- OUTSIDE RECORDS SUMMARY | ~2020-04-08 | XMS | Encounter Summary ---
Demographics + + + | Address | [address] | | | [place] [address] | + + + | Home Phone [...] Author + + + | Author | [facility] | + + + | Organization | [facility] | + + + | Address | Unknown | + + + | Phone | Unavailable | + + + Support + + +---------+ + | Name | Relationship | Address | Phone | + + +---------+ + | Kaycee Ferraro | ECON | Unknown | | + + +---------+ + Care Team Providers + +------+ + | Care Environmental Services Specialist Name | Role | Phone | + +------+ + PCP | Unavailable | + +------+ + Reason for Referral Consult to [place] (Routine) +--------+--------+ + + + + | Status | Reason | Specialty | Diagnoses / | Referred By | Referred To | | | | | Procedures | Contact | Contact | +--------+--------+ + + + + | Closed | | Orthopedics | Diagnoses | [facility] | [facility] | | | | | Knee | Randall Hernandez MD | [facility] [address] | | | | | dislocation | [address] | Sou[address] | | | | | Procedures | [address] | [facility] for | | | | | CONSULT TO | [address] | Health and | | | | | [place] | [place], [place] | Healing, | | | | | MAN[place]ATN | [address] | [address], | | | | | KNEE | Phone: | Floor | | | | | JT+ANESTHESI | [phone] | [place], [place] | | | | | A CO REMOVE | Fax: | [address] | | | | | ASSISTANT MERCHANDISER BONE | [phone] | Phone: | | | | | FIX DEV W | | [phone] | | | | | ANESTH | | Fax: | | | | | | | [phone] | +--------+--------+ + + + + Reason for Visit + + + | Reason | Comments | + + + | Follow-up visit | doing better | + + + Encounter Details +--------+---------+ + + + | Date | Type | Department | Care Team | Description | +--------+---------+ + + + | 11/30/ | Office | Orthopaedics | Randall Esparza, | Knee Dislocation | | 2007 | Visit | [facility] at [place] | [address] | (Primary Dx) | | | | for Health and | [address] | | | | | Healing [address] | [place], [place] | | | | | [facility] | [address] | | | | | Health and Healing, | [phone] | | | | | [facility] | | | | | | Floor [place], [place] | | | | | | [address] | | | | | | [phone] | | | +--------+---------+ + + + [...] documented as of this encounter Progress Notes Randall Esparza - 12/01/2007 9:45 PM Sonia Cerda is a 47 y.o. male 8 weeks s/p span ankur external fixation for left knee dislocation. He has minimal pain and is ready for ex fi x removal. He has been NWB status. PE: Ex fix intact. Mild fibrinous drainage at femoral pin sites. A/P: Plan removal of ex fix and gentle manipulation of the knee under anesthesia. Will need PT 2X/week postop. Louise Price Md - 12/01/2007 9:02 AM Sonia Cerda is a 47 y.o. Male who sustained a L knee dislocation 10 days prior to presentation when he stepped in hole while pushing a wheelbarre l. He was placed in a spanning external fixator for a PCL, ACL posterior lateral corner inj ury on October 01, 2007. His is now 9 weeks out from his surgery. Has been off the antibiot ics about 1 week. He has been doing local pin care. PE: Obese male accompanied by 2 correction officers. Lef LE, Pins sites with erythema. No appreciable drainage from the tibial pins. Moderate s erous drainage from thigh pins. Left foot has plantar flexion, no dorsiflexion or eversion. A/P L knee dislocation. He needs to have his ex fix removed. Followed by a knee manipulation. He may need to have a staged ACL PCL reconstruction if his knee has not scarred in enough from conservative rah tment. A surgical consent form was completed. We will arrange a surgery day with the [facility] department of corrections. He will be set up with PT after his ex fix is removed to work o n knee motion and strengthening. We will plan on bracing him post op. documented in this enc nter Plan of Treatment Not on filedocumented as of this encounter Visit Diagnoses + + | Diagnosis | + + | Knee dislocation - Primary Closed dislocation of knee, unspecified part | + + documented in this encounter"
--- OUTSIDE RECORDS SUMMARY | ~2020-04-08 | XMS | Encounter Summary ---
Demographics + + + | Address | [address] | | | [place] [address] | + + + | Home Phone | | + + + | Preferred Language | Unknown | + + + | Marital Status | Single | + + + | Amish Affiliation | CHR | + + + | Race | White | + + + | Ethnic Group | Not or | + + + Author + + + | Author | [facility] | + + + | Organization | [facility] | + + + | Address | Unknown | + + + | Phone | Unavailable | + + + Support + + +---------+ + | Name | Relationship | Address | Phone | + + +---------+ + | Kaycee Ferraro | ECON | Unknown | | + + +---------+ + Care Team Providers + +------+ + | Care General Machinist Name | Role | Phone | + +------+ + | Chery Carrion PA-C | PCP | | + +------+ + Encounter Details +--------+ + + + + | Date | Type | Department | Care Team | Description | +--------+ + + + + | 01/20/ | Procedure | 6A Intra Op [address] | | | | 2018 | Pass | [address] | | | | | | [facility] | | | | | | Hospital Admitting | | | | | | Desk Located on the | | | | | | 9th floor | | | | | | [place], [place] | | | | | | [address] | | | +--------+ + + + [...]
--- OUTSIDE RECORDS SUMMARY | ~2020-04-08 | XMS | Encounter Summary ---
Demographics + + + | Address | [address] | | | [place] [address] | + + + | Home Phone | | + + + | Preferred Language | Unknown | + + + | Marital Status | Single | + + + | Roman Catholic Affiliation | CHR | + + + | Race | White | + + + | Ethnic Group | Not or | + + + Author + + + | Author | [facility] | + + + | Organization | [facility] | + + + | Address | Unknown | + + + | Phone | Unavailable | + + + Support + + +---------+ + | Name | Relationship | Address | Phone | + + +---------+ + | Kaycee Ferraro | ECON | Unknown | | + + +---------+ + Care Team Providers + +------+ + | Care Shower Enclosure Installer Name | Role | Phone | [...] | | | | | | [place], [address] [place] [address] | | | | | | [place], [place] | | | | | | [address] | | | | | | [phone] | | | +--------+ + + + [...]
--- OUTSIDE RECORDS SUMMARY | ~2020-04-08 | XMS | Encounter Summary ---
Demographics + + + | Address | [address] | | | [place] [address] | + + + | Home Phone | | + + + | Preferred Language | Unknown | + + + | Marital Status | Single | + + + | Latter Day Affiliation | CHR | + + + | Race | White | + + + | Ethnic Group | Not or | + + + Author + + + | Author | [facility] | + + + | Organization | [facility] | + + + | Address | Unknown | + + + | Phone | Unavailable | + + + Support + + +---------+ + | Name | Relationship | Address | Phone | + + +---------+ + | Kaycee Ferraro | ECON | Unknown | | + + +---------+ + Care Team Providers + +------+ + | Care Emt B Name | Role | Phone | + [...] CONSULT TO | [address] [place], | | | | | ORTHOPEDICS | Rd | [place] | | | | | AND | [place], [place] | [address] | | | | | REHABILITATI | [address] | Phone: | | | | | ON | | [phone] | | | | | | | Fax: | | | | | | | [phone] | +--------+--------+ + + + + Encounter [...] | | | | Mailcode: [id number] | [place], [place] | | | | | [facility] | [address] | | | | | [place], [place] | [phone] | | | | | [address] | | | | | | [phone] | | | +--------+---------+ + + + [...]
--- OUTSIDE RECORDS SUMMARY | ~2020-04-08 | XMS | Encounter Summary ---
Demographics + + + | Address | [address] | | | [place] [address] | + + + | Home Phone | | + + + | Preferred Language | Unknown | + + + | Marital Status | Single | + + + | Confucianist Affiliation | CHR | + + + | Race | White | + + + | Ethnic Group | Not or | + + + Author + + + | Author | [facility] | + + + | Organization | [facility] | + + + | Address | Unknown | + + + | Phone | Unavailable | + + + Support + + +---------+ + | Name | Relationship | Address | Phone | + + +---------+ + | Kaycee Ferraro | ECON | Unknown | | + + +---------+ + Care Team Providers + +------+ + | Care Entry Level Buyer Name | Role | Phone | + +------+ + | No Pcp Per Patient | PCP | Unavailable | + +------+ + Encounter Details +--------+ + + + + | Date | Type | Department | Care Team | Description | +--------+ + + + + | 11/27/ | Deaf/Hard Of Hearing Specialist | Orthopaedics at | Artis Grajeda MD | Knee Dislocation | | 2008 | | [facility] [address] | [address] | (Primary Dx) | | | | [address] | [address] | | | | | Mailcode: [id number] | [place], [place] | | | | | [facility] | [address] | | | | | [place], [place] | [phone] | | | | | [address] | | | | | | [phone] | | | +--------+ + + + [...] Not on filedocumented as of this encounter Results X-RAY KNEE 2 VIEWS [...] | | + +---------+ + + | [facility] DEPARTMENT OF | | | | | RADIOLOGY | | | | + +---------+ + + documented in this encounter Visit Diagnoses + + | Diagnosis | + + | Knee dislocation - Primary Closed dislocation of knee, unspecified part | + + documented in this encounter"
--- OUTSIDE RECORDS SUMMARY | ~2020-04-08 | XMS | Encounter Summary ---
Demographics + + + | Address | [address] | | | [place] [address] | + + + | Home Phone [...] Author + + + | Author | [facility] | + + + | Organization | [facility] | + + + | Address | Unknown | + + + | Phone | Unavailable | + + + Support + + +---------+ + | Name | Relationship | Address | Phone | + + +---------+ + | Kaycee Ferraro | ECON | Unknown | | + + +---------+ + Care Team Providers + +------+ + | Care Manager Library Name | Role | Phone | + [...] + + | 12/22/ | Office | Preoperative | 2, [facility] [address] | Knee Dislocation; | | 2007 | Visit | Medicine Clinic at | [facility] [address] | Diabetes Mellitus | | | | [facility] 4th Floor [address] | [place] [address] | Type II, Controlled | | | | [address] | | (HCC); HTN; Other | | | | Mailcode: CH4S | | Specified | | | | [facility] | | Pre-Operative | | | | and Healing, | | Examination; | | | | Building [address]th Floor | | Hemorrhagic Disorder | | | | [place], [place] | | due to Intrinsic | | | | [phone] | | Circulating | | | | [phone] | | Anticoagulants | +--------+---------+ + + + Social History [...] + + + | Blood Pressure | 119/77 | 12/23/2007 9:06 AM | | | | | PDT | | + + + + + | Pulse | 63 | 12/23/2007 9:06 AM | | | | | PDT | | + + + + + | Temperature | 35.7 C (96.3 F) | 12/23/2007 9:06 AM | | | | | PDT | | + + + + + | Respiratory Rate | 14 | 12/23/2007 9:06 AM | | | | | PDT | | + + + + + | Oxygen Saturation | 98% | 12/23/2007 9:06 AM | | | | | PDT | | + + + + + | Inhaled Oxygen | - | - | | | Concentration | | | | + + + + + | Weight | - | - | | + + + + + | Height | - | - | | + + + + + | Body Mass Index | - | - | | + + + + + documented in this encounter [address] Gaines - 12/23/2007 9:27 AM PDT.hpElectronically signed by Court Forrester at 12/2007 9:27 AM PDTdocumented in this encounter Plan of Treatment Not on filedocumented as of this encounter Procedures + +--------+ + + + | Procedure Name | Priori | Date/Time | Associated Diagnosis | Comments | | | ty | | | | + +--------+ + + + | INR | Routin | 12/23/2007 | Diabetes Mellitus | Results for this | | | e | 9:27 AM | Type II, Controlled | procedure are in the | | | | PDT | (HCC) HTN | results section. | | | | | Hemorrhagic Disorder | | | | | | due to Intrinsic | | | | | | Circulating | | | | | | Anticoagulants | | + +--------+ + + + | COMPLETE METABOLIC | Routin | 12/23/2007 | Diabetes Mellitus | Results for this | | SET | e | 9:27 AM | Type II, Controlled | procedure are in the | | (NA,K,CL,CO2,BUN,CRE | | PDT | (HCC) HTN Other | results section. | | AT,GLUC,CA,AST,ALT,B | | | Specified | | | JOSE TOTAL,ALK | | | Pre-Operative | | | PHOS,ALB,PROT TOTAL) | | | Examination | | + +--------+ + + + | CBC ONLY | Routin | 12/23/2007 | Diabetes Mellitus | Results for this | | | e | 9:27 AM | Type II, Controlled | procedure are in the | | | | PDT | ([facility]) HTN Other | results section. | | | | | Specified | | | | | | Pre-Operative | | | | | | Examination | | + +--------+ + + + | APTT (ACT. PART. | Routin | 12/23/2007 | Diabetes Mellitus | Results for this | | THROMBO TIME) | e | 9:27 AM | Type II, Controlled | procedure are in the | | | | PDT | ([facility]) HTN | results section. | | | | | Hemorrhagic Disorder | | | | | | due to Intrinsic | | | | | | Circulating | | | | | | Anticoagulants | | + +--------+ + + + | 12 LEAD ECG | Routin | 12/23/2007 | Diabetes mellitus | Results for this | | | e | 9:21 AM | type II, controlled | procedure are in the | | | | PDT | ([facility]) HTN Other | results section. | | | | | specified | | | | | | pre-operative | | | | | | examination | | + +--------+ + + + documented in this encounter Results APTT (ACT. PART. THROMBO TIME) (12/23/2007 9:27 AM PDT) + + + + + + | Component | Value | Ref Range | Performed | Pathologist | | | | | At | Signature | + + + + + + | APTT | 49.0 (H)Comment: | 26.0 - 36.0 | [facility] [...] | Specimen | + + | Blood | + + + + + + + | Performing | Address | City/State/Zipcode | Phone Number | | Organization | | | | + + + + + | [facility] | [address] | [place] [address] | | | PATHOLOGY | [address] | | | + + + + + | [facility] | [address] | [place] [address] | | | PATHOLOGY | [address] | | | + + + + + PROTHROMBIN TIME, BLOOD (12/23/2007 9:27 AM PDT) + + + + + + | Component | Value | Ref Range | Performed | Pathologist | | | | | At | Signature | + + + + + + | INR | 2.35 (H)Comment: | 0.90 - 1.20 INR | [...] + + | Blood - Blood | + + + + + + + | Performing | Address | City/State/Zipcode | Phone Number | | Organization | | | | + + + + + | [facility] | [address] [facility] | [place] [address] | | | PATHOLOGY | [address] | | | + + + + + | [facility] | [address] [facility] | [place] [address] | | | PATHOLOGY | [address] | | | + + + + + CBC ONLY (12/23/2007 9:27 AM PDT) + + + + + + | Component | Value | Ref Range | Performed | Pathologist | | | | | At | Signature | + + + + + + | WHITE CELL | 8.6 | 4.4 - 11.0 K/cu | [facility] | | | COUNT | | mm | DEPARTMENT | | | | | | OF | | | | | | PATHOLOGY | | + + + + + + | RED CELL | 6.92 (H) | 4.50 - 5.90 | [facility] | | | COUNT | | M/cu mm | DEPARTMENT | | | | | | OF | | | | | | PATHOLOGY | | + + + + + + | HEMOGLOBIN | 12.9 (L) | 13.5 - 17.5 | [facility] | | | | | g/dL | DEPARTMENT | | | | | | OF | | | | | | PATHOLOGY | | + + + + + + | HEMATOCRIT | 41.3 | 41.0 - 53.0 % | [facility] [...] + + + + | RDW | 21.6 (H) | 11.5 - 15.0 % | [facility] | | | | | | DEPARTMENT | | | | | | OF | | | | | | PATHOLOGY | | + + + + + + | PLATELET | 246 | 150 - 400 K/cu | [facility] | | | COUNT | | mm | DEPARTMENT | | | | | | OF | | | | | | PATHOLOGY | | + + + + + + + + | Specimen | + + | Blood | + + + + + + + | Performing | Address | City/State/Zipcode | Phone Number | | Organization | | | | + + + + + | [facility] | [address] [facility] [address] | [place] [address] | | | PATHOLOGY | [address] | | | + + + + + | [facility] | [address] [facility] | [place] [address] | | | PATHOLOGY | [address] | | | + + + + + COMPLETE METABOLIC SET (NA,K,CL,CO2,BUN,CREAT,GLUC,CA,AST,ALT,BILI TOTAL,ALK PHOS,ALB,PROT TOTAL) (12/23/2007 9:27 AM PDT) + +---------+ + + + | Component | Value | Ref Range | Performed | Pathologist | | | | | At | Signature | + +---------+ + + + | GLUCOSE, | 65 | 60 - 99 mg/dL | [facility] | | | PLASMA | | | DEPARTMENT | | | (LAB) | | | OF | | | | | | PATHOLOGY | | + +---------+ + + + | BUN, PLASMA | 16 | 6 - 20 mg/dL | [facility] [...] +---------+ + + + | TOTAL | 7.4 | 6.1 - 7.9 g/dL | [facility] | | | PROTEIN, | | | DEPARTMENT | | | PLASMA | | | OF | | | (LAB) | | | PATHOLOGY | | + +---------+ + + + | ALBUMIN, | 3.2 (L) | 3.5 - 4.7 g/dL | [facility] | | | PLASMA | | | DEPARTMENT | | | (LAB) | | | OF | | | | | | PATHOLOGY | | + +---------+ + + + | CALCIUM, | 8.7 | 8.5 - 10.5 | [facility] | | | PLASMA | | mg/dL | DEPARTMENT | | | (LAB) | | | OF | | | | | | PATHOLOGY | | + +---------+ + + + | BILIRUBIN | 0.4 | 0.3 - 1.2 mg/dL | [facility] | | | TOTAL | | | DEPARTMENT | | | | | | OF | | | | | | PATHOLOGY | | + +---------+ + + + | ALK PHOS | 91 | 53 - 128 U/L | [facility] | | | | | | DEPARTMENT | | | | | | OF | | | | | | PATHOLOGY | | + +---------+ + + + | AST(SGOT) | 16 | 15 - 41 U/L | [facility] [...] +---------+ + + + | POTASSIUM, | 4.3 | 3.5 - 5.1 | [facility] | [...] + | TOTAL CO2, | 27 | 23 - 29 mmol/L | [facility] | | | PLASMA | | | DEPARTMENT | | | (LAB) | | | OF | | | | | | PATHOLOGY | | + +---------+ + + + | ALT (SGPT) | 17 | 13 - 48 U/L | [facility] | | | | | | DEPARTMENT | | | | | | OF | | | | | | PATHOLOGY | | + +---------+ + + + + + | Specimen | + + | Blood | + + + + + | Narrative | Performed At | + + + | [id number] Estimated GFR > 60 mL/min/1.73 sq m if non- | [facility] | | [id number] Estimated GFR > 60 mL/min/1.73 sq m if GFR | DEPARTMENT OF | | is estimated using the MDRD equation recommended by the National | PATHOLOGY | | Kidney Disease Education Program. Estimated GFR Interpretive | | | Information: <60 mL/min/1.73 sq m Chronic Kidney Disease <15 | | | mL/mon/1.73 sq m Kidney Failure Estimated GFR greater than | | | 60mL/min/1.73 is of limited clinical Value. The MDRD equation is | | | not valid in the following situations: - Patients under 18 years of | | | age - Severe malnutrition or obesity - Vegetarian diet - Rapidly | | | changing kidney function | | + + + + + + + + | Performing | Address | City/State/Zipcode | Phone Number | | Organization | | | | + + + + + | [facility] | [address] | [place] [address] | | | PATHOLOGY | [address] | | | + + + + + | [facility] | [address] | [place] [address] | | | PATHOLOGY | [address] | | | + + + + + 12 LEAD ECG (12/23/2007 9:21 AM PDT) + + + + + + | Component | Value | Ref Range | Performed | Pathologist | | | | | At | Signature | + + + + + + | VENTRICULAR | 57 | BPM | [facility] | | | RATE | | | OF | | | | | | CARDIOLOGY | | + + + + + + | ATRIAL RATE | 57 | BPM | [facility] | | | | | | OF | | | | | | CARDIOLOGY | | + + + + + + | P-R | 140 | ms | [facility] | | | INTERVAL | | | OF | | | | | | CARDIOLOGY | | + + + + + + | QRS | 86 | ms | [facility] | | | DURATION | | | OF | | | | | | CARDIOLOGY | | + + + + + + | QT | 462 | ms | [facility] | | | | | | OF | | | | | | CARDIOLOGY | | + + + + + + | QTC | 450 | ms | [facility] | | | | | | OF | | | | | | CARDIOLOGY | | + + + + + + | P AXIS | 22 | degrees | [facility] | | | | | | OF | | | | | | CARDIOLOGY | | + + + + + + | R AXIS | 27 | degrees | [facility] | | | | | | OF | | | | | | CARDIOLOGY | | + + + + + + | T AXIS | 35 | degrees | [facility] | | | | | | OF | | | | | | CARDIOLOGY | | + + + + + + | EKG | Sinus | | [facility] | | | DIAGNOSIS | bradycardiaOtherwise | | OF | | | | normal ECG"I have | | CARDIOLOGY | | | | personally interpreted | | | | | | this report, either | | | | | | alone or with a | | | | | | trainee."Confirmed by | | | | | | WALLY TIM ([id number]) | | | | | | on 24-Dec-2007 09:44:57 | | | | + + + + + + | LINK TO | | | [facility] | | | [facility] | | | OF | | | (ECG | | | CARDIOLOGY | | | VIEWER) | | | | | + + + + + + + + | Specimen | + + | | + + + + + | Narrative | Performed At | + + + | Please click | [facility] | | on view image for the detailed interpretation from [employer] results. | CARDIOLOGY | | | | + + + + + + + + | Performing | Address | City/State/Zipcode | Phone Number | | Organization | | | | + + + + + | [facility] | [address] | [place], [place] | | | CARDIOLOGY | [facility] | [address] | | + + + + + | [facility] | [address] | [place], [place] | | | CARDIOLOGY | [facility] | [address] | | + + + + + documented in this encounter Visit Diagnoses + + | Diagnosis | + + | Knee dislocation Closed dislocation of knee, unspecified part | + + | Diabetes mellitus type II, controlled (HCC) Type II or unspecified type diabetes | | mellitus without mention of complication, not stated as uncontrolled | + + | HTN Unspecified essential hypertension | + + | Other specified pre-operative examination | + + | Hemorrhagic disorder due to intrinsic circulating anticoagulants | + + documented in this encounter
--- OUTSIDE RECORDS SUMMARY | ~2020-04-08 | XMS | Encounter Summary ---
Demographics + + + | Address | [address] | | | [place] [address] | + + + | Home Phone | | + + + | Preferred Language | Unknown | + + + | Marital Status | Single | + + + | Nondenominational Affiliation | [id number] | + + + | Race | Unknown | + + + | Ethnic Group | Unknown | + + + Author + + + | Author | [facility] | | | and [place] | + + + | Organization | [facility] | | | [...] Team Providers + +------+ + | Care Ceiling Cleaner Name | Role | Phone | + +------+ + | Chery Carrion | PCP | | + +------+ + Reason for Referral Evaluate & Treat (Routine) + + + + + + + | Status | Reason | Specialty | Diagnoses / | Referred By | Referred To | | | | | Procedures | Contact | Contact | + + + + + + + | Pending | Specialty | Cardiology | Diagnoses | Fuentes Ahumada | Korimerla, | | Review | Services | | Other | MD Valerio | Jeremiah Blancas MD | | | Required | | secondary | [address] | | | | | hypertension | [address] | [address] | | | | | | [place] | [address] | | | | | Dyslipidemia | [place] | [place] | | | | | , goal LDL | [phone] | [address] Phone: | | | | | below 70 | Phone: | [phone] | | | | | Atrial | [phone] | Fax: | | | | | fibrillation | Fax: | [phone] | | | | | , | [phone] | | | | | | unspecified | | | | | | | type (HCC) | | | | | | | Aortic valve | | | | | | | replaced | | | | | | | Coronary | | | | | | | artery | | | | | | | disease | | | | | | | involving | | | | | | | mohegan | | | | | | | coronary | | | | | | | artery of | | | | | | | mohegan heart | | | | | | | without | | | | | | | angina | | | | | | | pectoris | | | + + + + + + + Diagnostic/Screening (Routine) +--------+--------+ + + + + | Status | Reason | Specialty | Diagnoses / | Referred By | Referred To | | | | | Procedures | Contact | Contact | +--------+--------+ + + + + | Closed | | Radiology | Diagnoses | Poi, Fuentes | | | | | | Gangrene of | MD Valerio | | | | | | toe of left | [address] | | | | | | foot (HCC) | [address] | | | | | | PAD | [place] | | | | | | (peripheral | [place], [place] | | | | | | artery | [id number] | | | | | | disease) | Phone: | | | | | | (HCC) | [phone] | | | | | | Smoking hx | Fax: | | | | | | Procedures | [phone] | | | | | | VAS Lower | | | | | | | Extremity | | | | | | | Arteries | | | | | | | Left | | | +--------+--------+ + + + + Diagnostic/Screening (Routine) +--------+--------+ + + + + | Status | Reason | Specialty | Diagnoses / | Referred By | Referred To | | | | | Procedures | Contact | Contact | +--------+--------+ + + + + | Closed | | Radiology | Diagnoses | Poi, Fuentes | | | | | | Smoking hx | MD Valerio | | | | | | Procedures | [address] | | | | | | VAS Aorta | [address] | | | | | | Iliac Duplex | [place] | | | | | | Complete | [place] | | | | | | | [address] | | | | | | | Phone: | | | | | | | [phone] | | | | | | | Fax: | | | | | | | [phone] | | +--------+--------+ + + + + Diagnostic/Screening (Routine) +--------+--------+ + + + + | Status | Reason | Specialty | Diagnoses / | Referred By | Referred To | | | | | Procedures | Contact | Contact | +--------+--------+ + + + + | Closed | | Radiology | Diagnoses | Poi, Fuentes | | | | | | PAD | MD Valerio | | | | | | (peripheral | [address] | | | | | | artery | [address] | | | | | | disease) | [place] [address] | | | | | | (HCC) Other | [place] | | | | | | secondary | [id number] | | | | | | hypertension | Phone: | | | | | | | [phone] | | | | | | Dyslipidemia | Fax: | | | | | | , goal LDL | [phone] | | | | | | below 70 | | | | | | | Smoking hx | | | | | | | Procedures | | | | | | | VAS Carotid | | | | | | | Duplex | | | | | | | Bilateral | | | +--------+--------+ + + + + Reason for Visit +---------+ + | Reason | Comments | +---------+ + | Consult | left foot great toe ulcer | +---------+ + Evaluate & Treat (Urgent) +--------+--------+ + + + + | Status | Reason | Specialty | Diagnoses / | Referred By | Referred To | | | | | Procedures | Contact | Contact | +--------+--------+ + + + + | Closed | | Vascular | Diagnoses | Kailey | [facility] | | | | Surgery | Cellulitis | MAIKEL Ward | Surgery | | | | | of left | [address] | | | | | lower limb | [address] | DR FRAGA | | | | | Non-pressure | [address] | [place] | | | | | chronic | [place], | [address] | | | | | ulcer of | [place] [address] | Phone: | | | | | other part | Phone: | [phone] | | | | | of left foot | [phone] | Fax: | | | | | with fat | Fax: | [phone] | | | | | layer | [phone] | | | | | | exposed | | | | | | | (HCC) Type | | | | | | | 2 diabetes | | | | | | | mellitus | | | | | | | with | | | | | | | diabetic | | | | | | | polyneuropat | | | | | | | hy (HCC) | | | | | | | Type 2 | | | | | | | diabetes | | | | | | | mellitus | | | | | | | with foot | | | | | | | ulcer (HCC) | | | | | | | Unspecified | | | | | | | | | | | | | | atherosclero | | | | | | | sis of | | | | | | | mohegan | | | | | | | arteries of | | | | | | | extremities, | | | | | | | bilateral | | | | | | | legs (HCC) | | | +--------+--------+ + + + + Encounter Details +--------+---------+ + + + | Date | Type | Department | Care Team | Description | +--------+---------+ + + + | 03/19/ | Office | [facility] | Fuentes Ahumada MD | Gangrene of toe of | | 2019 | Visit | VASCULAR SURGERY | [address] | left foot (HCC) | | | | [address] | [place], [place] | (Primary Dx); PAD | | | | [place], [place] | [address] | (peripheral artery | | | | [address] | | disease) ([facility]); | | | | [phone] | | Other secondary | | | | | | hypertension; | | | | | | Dyslipidemia, goal | | | | | | LDL below 70; Atrial | | | | | | fibrillation, | | | | | | unspecified type | | | | | | ([facility]); Aortic valve | | | | | | replaced; Coronary | | | | | | artery disease | | | | | | involving mohegan | | | | | | coronary artery of | | | | | | mohegan heart without | | | | | | angina pectoris; | | | | | | Smoking hx | +--------+---------+ + + + Social History [...] this encounter Last Filed Vital Signs + +---------+ + + | Vital Sign | Reading | Time Taken | Comments | + +---------+ + + | Blood Pressure | 147/86 | 03/19/2020 10:49 AM | | | | | PDT | | + +---------+ + + | Pulse | 59 | 03/19/2020 10:49 AM | | | | | PDT | | + +---------+ + + | Temperature | - | - | | + +---------+ + + | Respiratory Rate | - | - | | + +---------+ + + | Oxygen Saturation | 98% | 03/19/2020 10:49 AM | | | | | PDT | | + +---------+ + + | Inhaled Oxygen | - | - | | | Concentration | | | | + +---------+ + + | Weight | - | - | | + +---------+ + + | Height | - | - | | + +---------+ + + | Body Mass Index | - | - | | + +---------+ + + documented in this encounter Progress Notes Fuentes Ahumada MD - 03/19/2020 11:00 AM PDTFormatting of this note might be different from laurita howard. [facility] [address] [place] [place] [address] Office: [phone] DATE OF VISIT: March 19, 2020 PATIENT NAME: José Miguel Cerda : 1960; AGE: 59 y.o.; Sex:M PHONE NUMBER: PHYSICIAN: Fuentes Ahumada MD PRIMARY CARE / REFERRING PHYSICIAN: Sylvia Bonner PA-C / [facility] / [address] [place] [address] / [place] [address] REASON FOR EVALUATION / CHIEF COMPLAINT: Evaluation and treatment of left lower extremity n on-healing wound due to peripheral arterial disease HISTORY OF PRESENT ILLNESS: José Miguel Cerda is a 59 y.o. male patient with a history of diabetes who was recently diagnosed with peripheral arterial atherosclerotic disease and is here at the vascular clinic for gangrene of the left distal great toe that onset 3 months ag o. The patient's leg symptoms have gradually worsened. The patient has been treated with agg ressive wound care regimen which have not significantly improved the wound healing at [facility] [place], [place]. The patient stated the his lower extremity wound h as progressively enlarged in size and this wound is also associated with worsening of ischem ic pain. Additionally, the patient complains of numbness in the left foot. He indicates that he has neuropathy in both feet. He uses a walker for a broken right hip and chronic back pa in from broken back. States he has constant pain around his left ankle. The patient's risk f actors for atherosclerotic occlusive disease include: tobacco use: 2 PPD, 20 years, hyperten anna and diabetes. However, the patient quit smoking 2 years ago. The patient had an artific ial heart valve done by Dr. Melendez 3 years ago. He used to take aspirin but is not taking i t anymore and is not taking any blood thinners at this time. He takes Lipitor. He denies his tory of stroke. The patient was referred for a vascular surgery consultation to further eval uate and treat the underlying vascular occlusive disease. His Immigration Associate is Dr. Bello at [facility]. PAST SURGICAL HISTORY: The patient's has a past surgical history that includes Appendectom y; other surgical history (Left); and Aortic valve replacement/repair (05/16/2018). PAST MEDICAL HISTORY: The patient has a past medical history of Atrial fibrillation (HCC) (05/18/2018), Back pain, Coronary artery disease involving mohegan coronary artery of mohegan h eart without angina pectoris (05/31/2018), DM (diabetes mellitus), type 2 (HCC), Hypertension , and Polycythemia. FAMILY HISTORY: The patient's family history includes Diabetes in his father and mother. CURRENT MEDICATIONS: Medication Sig betamethasone dipropionate 0.05% cream Apply topically 2 (two) times daily. Apply to a ffected areas on the skin of left leg two times a day. gabapentin (NEURONTIN) 300 mg capsule Take 300 mg by mouth 3 (three) times daily. hydrOXYzine pamoate (VISTARIL) 25 mg capsule Take 25 mg by mouth as needed for Itching. lisinopril-hydrochlorothiazide (PRINZIDE,ZESTORETIC) 20-12.5 MG per tablet Take 1 table t by mouth daily. oxyCODONE 10 MG TABS Take 1 tablet by mouth every 6 (six) hours as needed for Pain. (Dayday graham not taking: Reported on 03/19/2020.) permethrin (ELIMITE) 5% cream Apply topically once a week. Apply from head to toe, diane ve on for 8 to 14 hours then rinse. May reapply in 7 days. tamsulosin (FLOMAX) 0.4 mg CAPS Take 1 capsule by mouth After dinner. traMADol (ULTRAM) 50 mg tablet Take 50 mg by mouth every 6 hours as needed. Allergies Allergen Reactions Latex Itching, Rash and Dermatitis No food related allergies per pt. No food related allergies per pt. SOCIAL HISTORY: reports that he has quit smoking. He smoked 1.00 pack per day. He has neve r used smokeless tobacco. REVIEW OF SYSTEMS: General: negative for - night sweats, weight gain or weight loss Ophthalmic: negative for - decreased vision, double vision, loss of vision ENT: negative for - nasal congestion, oral lesions, sinus pain, earache, ear discharge, tin nitus. Neck: negative for - neck pain, neck stiffness, swollen gland, thyroid enlargement. Respiratory: no cough, shortness of breath, wheezing, dyspnea, sputum production, hemoptysi s. Cardiovascular: no chest pain, orthopnea, dyspnea on exertion Gastrointestinal: no abdominal pain, change in bowel habits, jaundice, constipation, black or bloody stools Genito-Urinary: no dysuria, trouble voiding, hematuria Musculoskeletal: positive for gangrene in the left distal great toe, chronic back pain, chr onic right hip pain negative for - joint stiffness, joint swelling or bone pain Neurological: positive for numbness in left foot negative for - behavioral changes, headaches, impaired coordination, loss of balance, dizzi ness, seizure, memory loss or weakness Dermatological: negative for - mole changes, nail changes, skin lesion changes, skin discol oration. Hematological and Lymphatic: negative for - bleeding problems, blood clots, bruising, fatig ue, swollen lymph nodes, history of anemia. Endocrine: negative for thyroid disease, heat or cold intolerance, polyuria, polydipsia Psychiatric: negative for depression, sleep disturbance, suicidal ideation, anxiety disor kamron, history of hallucinations VITAL SIGNS: BP 147/86 | Pulse 59 | SpO2 98% PHYSICAL EXAM: Constitutional: Well nourished, no signs of distress HENT: Non icteric sclerae, oropharynx clear. Normocephalic and atraumatic. Cranial nerves I IXI are grossly intact. Extraocular motor intact. Lymphadenopathy: He has no cervical, supraclavicular adenopathy Cardiovascular: Normal rate, regular rhythm Pulmonary/Chest: No respiratory distress. Abdominal: Soft. No abdominal distension or tenderness. No masses palpated and no hepatomeg ervin. No organomegaly. No abdominal pulsatile mass noted. Musculoskeletal: Normal range of motion. No evidence of arthritis. Extremities: No edema, cyanosis or clubbing. Neurological: He is alert and oriented. No muscle weakness and normal gait. VASCULAR: Varicose veins in the bilateral calf. Palpable bilateral brachial, radial, caroti d pulses. Palpable femoral pulses were present bilaterally with Dopplerable bilateral poplit eal arterial signals. Dopplerable signals were present in bilateral dorsalis pedis and poste rior tibial artery arteries. Mild left ankle swelling. Gangrene with erythema in the left gr eat toe with no drainage. There was no tendon, bone, joint, or ligament exposed. IMAGINGS: 03/19/2020 OLINDA/Toe pressure Right: Normal ankle brachial and toe brachial indices with triphasic waveforms. Left: Normal ankle brachial index and mildly diminished toe brachial index.Triphasic wave forms. ASSESSMENT & PLAN: Peripheral artery disease / arterial stenosis of lower leg circulation - The patient has no n-healing wound of left lower extremity due to atherosclerotic disease. The patient's OLINDA a nd toe pressure is normal. We will obtain a left leg arterial ultrasound to evaluate the und erlying arterial occlusive disease. Based in the arterial ultrasound, the patient will be sc heduled to undergo angiographic interventions of his lower extremity. I've discussed with th e patient regarding the benefits and risks of the procedure. The patient is aware of the westley efits of the planned procedure which is to improve his lower leg arterial circulation. The p atient is also aware of the potential risks of the procedure, which include contrast-induced nephropathy, vessel perforation, arterial dissection, contrast-induced allergic reaction, b leeding, and wound infection. The patient has accepted these benefits and risks of the proce dure. The planned procedure of diagnostic aortogram with possible endovascular interventions (including balloon angioplasty, stent placement, or atherectomy) of left lower extremity ar terial stenosis. Hypertension - The patient is advised to maintain his antihypertensive medication to keep s ystolic blood pressure target level of 130-140 mm Hg and diastolic blood pressure level of 7 0-80 mm Hg. The patient is advised that uncontrolled hypertension can accelerate atheroscler otic disease progression. Dyslipidemia - The patient is advised to undergo lipid level evaluation with fasting blood test every 6 months with target LDL level of less than 70 mg/dL. The patient is advised to c ontinue taking antiplatelet daily for life to reduce the risk of myocardial infarction and p eripheral arterial disease. Coronary artery disease, aortic valve replacement, atrial fibrillation. The patient stated that he does not see a grant officer despite significant cardiac disease. He is interested to be referred to a grant officer for care home follow up. Based on the patient's risks factors, we will obtain a carotid and aortic ultrasound to scr een for carotid stenosis and abdominal aortic aneurysm. Attending Note: Documentation assistance provided by Dotty Katz (Scribe). Information record ed by the scribe has been reviewed and validated by me. I agree with its contents. Fuentes Ahumada MD documented in this encou nter H&P Notes Zita, Fuentes Luo MD - 03/19/2020 11:00 AM PDTFormatting of this note might be different from t darleen original. REASON FOR EVALUATION / CHIEF COMPLAINT: Evaluation and treatment of left lower extremity n on-healing wound due to peripheral arterial disease HISTORY OF PRESENT ILLNESS: José Miguel Cerda is a 59 y.o. male patient with a history of diabetes who was recently diagnosed with peripheral arterial atherosclerotic disease and is here at the vascular clinic for gangrene of the left distal great toe that onset 3 months ag o. The patient's leg symptoms have gradually worsened. The patient has been treated with agg ressive wound care regimen which have not significantly improved the wound healing at [facility] [place], [place]. The patient stated the his lower extremity wound h as progressively enlarged in size and this wound is also associated with worsening of ischem ic pain. Additionally, the patient complains of numbness in the left foot. He indicates that he has neuropathy in both feet. He uses a walker for a broken right hip and chronic back pa in from broken back. States he has constant pain around his left ankle. The patient's risk f actors for atherosclerotic occlusive disease include: tobacco use: 2 PPD, 20 years, hyperten anna and diabetes. However, the patient quit smoking 2 years ago. The patient had an artific ial heart valve done by Dr. Melendez 3 years ago. He used to take aspirin but is not taking i t anymore and is not taking any blood thinners at this time. He takes Lipitor. He denies his tory of stroke. The patient was referred for a vascular surgery consultation to further eval uate and treat the underlying vascular occlusive disease. His Immigration Associate is Dr. Bello at [facility]. PAST SURGICAL HISTORY: The patient's has a past surgical history that includes Appendectom y; other surgical history (Left); and Aortic valve replacement/repair (05/16/2018). PAST MEDICAL HISTORY: The patient has a past medical history of Atrial fibrillation (HCC) (05/18/2018), Back pain, Coronary artery disease involving mohegan coronary artery of mohegan h eart without angina pectoris (05/31/2018), DM (diabetes mellitus), type 2 (HCC), Hypertension , and Polycythemia. FAMILY HISTORY: The patient's family history includes Diabetes in his father and mother. CURRENT MEDICATIONS: Medication Sig betamethasone dipropionate 0.05% cream Apply topically 2 (two) times daily. Apply to a ffected areas on the skin of left leg two times a day. gabapentin (NEURONTIN) 300 mg capsule Take 300 mg by mouth 3 (three) times daily. hydrOXYzine pamoate (VISTARIL) 25 mg capsule Take 25 mg by mouth as needed for Itching. lisinopril-hydrochlorothiazide (PRINZIDE,ZESTORETIC) 20-12.5 MG per tablet Take 1 table t by mouth daily. oxyCODONE 10 MG TABS Take 1 tablet by mouth every 6 (six) hours as needed for Pain. (Dayday graham not taking: Reported on 03/19/2020.) permethrin (ELIMITE) 5% cream Apply topically once a week. Apply from head to toe, diane ve on for 8 to 14 hours then rinse. May reapply in 7 days. tamsulosin (FLOMAX) 0.4 mg CAPS Take 1 capsule by mouth After dinner. traMADol (ULTRAM) 50 mg tablet Take 50 mg by mouth every 6 hours as needed. Allergies Allergen Reactions Latex Itching, Rash and Dermatitis No food related allergies per pt. No food related allergies per pt. SOCIAL HISTORY: reports that he has quit smoking. He smoked 1.00 pack per day. He has neve r used smokeless tobacco. REVIEW OF SYSTEMS: General: negative for - night sweats, weight gain or weight loss Ophthalmic: negative for - decreased vision, double vision, loss of vision ENT: negative for - nasal congestion, oral lesions, sinus pain, earache, ear discharge, tin nitus. Neck: negative for - neck pain, neck stiffness, swollen gland, thyroid enlargement. Respiratory: no cough, shortness of breath, wheezing, dyspnea, sputum production, hemoptysi s. Cardiovascular: no chest pain, orthopnea, dyspnea on exertion Gastrointestinal: no abdominal pain, change in bowel habits, jaundice, constipation, black or bloody stools Genito-Urinary: no dysuria, trouble voiding, hematuria Musculoskeletal: positive for gangrene in the left distal great toe, chronic back pain, chr onic right hip pain negative for - joint stiffness, joint swelling or bone pain Neurological: positive for numbness in left foot negative for - behavioral changes, headaches, impaired coordination, loss of balance, dizzi ness, seizure, memory loss or weakness Dermatological: negative for - mole changes, nail changes, skin lesion changes, skin discol oration. Hematological and Lymphatic: negative for - bleeding problems, blood clots, bruising, fatig ue, swollen lymph nodes, history of anemia. Endocrine: negative for thyroid disease, heat or cold intolerance, polyuria, polydipsia Psychiatric: negative for depression, sleep disturbance, suicidal ideation, anxiety disor kamron, history of hallucinations VITAL SIGNS: BP 147/86 | Pulse 59 | SpO2 98% PHYSICAL EXAM: Constitutional: Well nourished, no signs of distress HENT: Non icteric sclerae, oropharynx clear. Normocephalic and atraumatic. Cranial nerves I IXI are grossly intact. Extraocular motor intact. Lymphadenopathy: He has no cervical, supraclavicular adenopathy Cardiovascular: Normal rate, regular rhythm Pulmonary/Chest: No respiratory distress. Abdominal: Soft. No abdominal distension or tenderness. No masses palpated and no hepatomeg ervin. No organomegaly. No abdominal pulsatile mass noted. Musculoskeletal: Normal range of motion. No evidence of arthritis. Extremities: No edema, cyanosis or clubbing. Neurological: He is alert and oriented. No muscle weakness and normal gait. VASCULAR: Varicose veins in the bilateral calf. Palpable bilateral brachial, radial, caroti d pulses. Palpable femoral pulses were present bilaterally with Dopplerable bilateral poplit eal arterial signals. Dopplerable signals were present in bilateral dorsalis pedis and poste rior tibial artery arteries. Mild left ankle swelling. Gangrene with erythema in the left gr eat toe with no drainage. There was no tendon, bone, joint, or ligament exposed. IMAGINGS: 03/19/2020 OLINDA/Toe pressure Right: Normal ankle brachial and toe brachial indices with triphasic waveforms. Left: Normal ankle brachial index and mildly diminished toe brachial index.Triphasic wave forms. ASSESSMENT & PLAN: Peripheral artery disease / arterial stenosis of lower leg circulation - The patient has no n-healing wound of left lower extremity due to atherosclerotic disease. The patient's OLINDA a nd toe pressure is normal. We will obtain a left leg arterial ultrasound to evaluate the und erlying arterial occlusive disease. Based in the arterial ultrasound, the patient will be sc heduled to undergo angiographic interventions of his lower extremity. I've discussed with th e patient regarding the benefits and risks of the procedure. The patient is aware of the westley efits of the planned procedure which is to improve his lower leg arterial circulation. The p atient is also aware of the potential risks of the procedure, which include contrast-induced nephropathy, vessel perforation, arterial dissection, contrast-induced allergic reaction, b leeding, and wound infection. The patient has accepted these benefits and risks of the proce dure. The planned procedure of diagnostic aortogram with possible endovascular interventions (including balloon angioplasty, stent placement, or atherectomy) of left lower extremity ar terial stenosis. Hypertension - The patient is advised to maintain his antihypertensive medication to keep s ystolic blood pressure target level of 130-140 mm Hg and diastolic blood pressure level of 7 0-80 mm Hg. The patient is advised that uncontrolled hypertension can accelerate atheroscler otic disease progression. Dyslipidemia - The patient is advised to undergo lipid level evaluation with fasting blood test every 6 months with target LDL level of less than 70 mg/dL. The patient is advised to c ontinue taking antiplatelet daily for life to reduce the risk of myocardial infarction and p eripheral arterial disease. Coronary artery disease, aortic valve replacement, atrial fibrillation. The patient stated that he does not see a grant officer despite significant cardiac disease. He is interested to be referred to a grant officer for care home follow up. Based on the patient's risks factors, we will obtain a carotid and aortic ultrasound to scr een for carotid stenosis and abdominal aortic aneurysm. Attending Note: Documentation assistance provided by Dotty Katz (Scribe). Information record ed by the scribe has been reviewed and validated by me. I agree with its contents. Fuentes Ahumada MD documente d in this encounter Plan of Treatment +--------+ [...] | +--------+ + + + + + +---------+--------+ + + | Name | Type | Priori | Associated Diagnoses | Order Schedule | | | | ty | | | + +---------+--------+ + + | VAS Carotid Duplex | Imaging | Routin | PAD (peripheral | Expected: 03/21/2020 | | Bilateral | | e | artery disease) | (Approximate), | | | | | (HCC) Other | Expires: 03/21/2021 | | | | | secondary | | | | | | hypertension | | | | | | Dyslipidemia, goal | | | | | | LDL below 70 | | | | | | Smoking hx | | + +---------+--------+ + + | VAS Aorta Iliac | Imaging | Routin | Smoking hx | Expected: | | Duplex Complete | | e | | 03/21/2020, Expires: | | | | | | 03/21/2021 | + +---------+--------+ + + | VAS Lower Extremity | Imaging | Routin | Gangrene of toe of | Expected: | | Arteries Left | | e | left foot (HCC) | 03/21/2020, Expires: | | | | | PAD (peripheral | 03/21/2021 | | | | | artery disease) | | | | | | (HCC) Smoking hx | | + +---------+--------+ + + | Creatinine | Lab | Routin | Gangrene of toe of | 1 Occurrences | | | | e | left foot (HCC) | starting 03/21/2020 | | | | | PAD (peripheral | until 03/21/2021 | | | | | artery disease) | | | | | | (HCC) | | + +---------+--------+ + + + + +--------+ + + | Name | Type | Priori | Associated Diagnoses | Order Schedule | | | | ty | | | + + +--------+ + + | Ambulatory referral | Outpatient | Routin | Other secondary | Ordered: 03/21/2020 | | to [facility] | Referral | e | hypertension | | | | | | Dyslipidemia, goal | | | | | | LDL below 70 Atrial | | | | | | fibrillation, | | | | | | unspecified type | | | | | | ([facility]) Aortic valve | | | | | | replaced Coronary | | | | | | artery disease | | | | | | involving mohegan | | | | | | coronary artery of | | | | | | mohegan heart without | | | | | | angina pectoris | | + + +--------+ + + documented as of this encounter Visit Diagnoses + + | Diagnosis | + + | Gangrene of toe of left foot (HCC) - Primary | + + | PAD (peripheral artery disease) (HCC) Unspecified disorders of arteries and | | arterioles | + + | Other secondary hypertension | + + | Dyslipidemia, goal LDL below 70 Other and unspecified hyperlipidemia | + + | Atrial fibrillation, unspecified type (HCC) | + + | 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
--- OUTSIDE RECORDS SUMMARY | ~2020-04-08 | XMS | Encounter Summary ---
Demographics + + + | Address | [address] | | | [place] [address] | + + + | Home Phone | | + + + | Preferred Language | Unknown | + + + | Marital Status | Single | + + + | Congregation Affiliation | 1013 | + + + | Race | Unknown | + + + | Ethnic Group | Unknown | + + + Author + + + | Author | [facility] | | | and [place] | + + + | Organization | [facility] | | | and [...] Team Providers + +------+ + | Care Animal Sticker Name | Role | Phone | + +------+ + | Chery Carrion | PCP | | + +------+ + Encounter Details +--------+ + + + + | Date | Type | Department | Care Team | Description | +--------+ + + + + | 05/05/ | Orders Only | [facility] | Conversion | | | 2018 | | CONVERSION DEP [address] | Transaction, | | | | | [address] | Provider Unknown | | | | | [place], [place] | [phone] | | | | | [address] | | | | | | [phone] | | | +--------+ + + + [...]
--- OUTSIDE RECORDS SUMMARY | ~2020-04-08 | XMS | Encounter Summary ---
Demographics + + + | Address | [address] | | | [place] [address] | + + + | Home Phone [...] Team Providers + +------+ + | Care Pin Cleaner Name | Role | Phone | + +------+ + PCP | Unavailable | + +------+ + Encounter Details +--------+ + + + + | Date | Type | Department | Care Team | Description | +--------+ + + + + | 11/30/ | DELETED | | Other, Faculty | Pre-Op Paperwork | | 2007 | TRANSCRIPTI | | [phone] | | | | ON | | [...]
--- OUTSIDE RECORDS SUMMARY | ~2020-04-08 | XMS | Encounter Summary ---
Demographics + + + | Address | [address] | | | [place] [address] | + + + | Home Phone | | + + + | Preferred Language | Unknown | + + + | Marital Status | Single | + + + | Islam Affiliation | CHR | + + + | Race | White | + + + | Ethnic Group | Not or | + + + Author + + + | Author | [facility] | + + + | Organization | [facility] | + + + | Address | Unknown | + + + | Phone | Unavailable | + + + Support + + +---------+ + | Name | Relationship | Address | Phone | + + +---------+ + | Kaycee Ferraro | ECON | Unknown | | + + +---------+ + Care Team Providers + +------+ + | Care Gasoline Locomotive Crane Operator Name | Role | Phone | + +------+ + PCP | Unavailable | + +------+ + Encounter Details +--------+ + + + + | Date | Type | Department | Care Team | Description | +--------+ + + + + | 10/04/ | Procedure - | Plastic and | Cm Barron, | Operative Report | | 2007 | | [facility]construct[facility] | | | Transcribed | Surgery at [facility] [address] [facility] | | | | | Mary [place]oldsmith | [address] | | | | | Mailcode: 5P | [address] [place], | | | | | [facility] | [place] [address] | | | | | and Healing, | | | | | | Building , | | | | | | [place], [place] | | | | | | [address] | | | | | | [phone] | | | +--------+ + + + [...] + + | OPERATION RECORD | | 10/04/2007 | | Results for this | | | | 12:00 AM | | procedure are in the | | | | PST | | results section. | + +--------+ + + + documented in this encounter Results OPERATION RECORD (10/04/2007 12:00 AM PST) + + | Procedure Note | + + | Cm Barron MD - 10/04/2007 12:00 AM PST [id number] | | [id number] MARIEL RIVERUEL [id number] Date: | | 10/04/2007 Attending Surgeon: Randall Esparza M.D. Hotel Housekeeper(s): Cm | | Sherine Barron M.D. Matthew Dean McElvany, M.D. Preoperative | | Diagnosis(es): Left knee dislocation. Postoperative Diagnosis(es): Left knee | | dislocation. Procedures Performed: Placement of external fixator. Anesthesia: | | General endotracheal. Estimated Blood Loss: Minimal. Complications: None. | | Specimens: None. Hardware: Large Ex-Fix three 5.0 mm pins, 5 universal cylindrical | | pin to bar connectors. Three carbon fiber rods. Indications: This is a 47-year-old | | [facility] inmate who dislocated his knee approximately 10 days prior to surgery while | | gardening. He was seen at an outside hospital where his knee was reduced. He was noted | | preoperatively to have a foot drop on the left side, but angio performed at outside | | institution demonstrated no arterial injury. Procedure: After being correctly | | identified in the preop holding area, the patient was brought to the operating room and | | placed supine on the operating table. After induction of general anesthesia, a | | non-sterile fluoroscopic examination of the knee was performed which demonstrated a wide | | gapping with varus stress and marked recurvatum of the knee with extension. His dial | | test was negative. His LCL and ACL appeared to be disrupted on exam. The patient was | | then prepped and draped in the usual sterile fashion. Percutaneous incisions 1 cm were | | made over the anterolateral thigh just anterior to the IT band, and blunt dissection was | | used to carry the tract down to the femur. A 3.5 mm drill was then used to drill | | bicortically, and a 5.0 mm partially-threaded large Ex-Fix pins were placed which were | | confirmed to be bicortical on fluoroscopy. Attention was then turned to the tibia, and | | using similar technique, three 5.0 mm pins were placed in the anteromedial tibia. A | | combination of pin to bar and bar to bar connections were used to create a new spanning | | external fixator. The alignment of the knee was then checked fluoroscopically prior to | | final tightening. On true AP of the knee and accurate lateral fluoroscopic view, the | | tibia was slightly posterior translated and in slight varus. After giving a slight | | flexion movement and anteriorly directed translation of force to the tibia, the knee | | appeared to be better reduced and final tightening was performed. This was confirmed | | again on true AP and lateral fluoroscopic views. The pins were then cut, and a Kerlix | | bolster placed on the pins. The patient was then awakened without incident and taken to | | the PACU in stable condition. Dr. Esparza was present for the critical portions of | | this case. Cm Barron M.D. Randall Esparza M.D. / | | [id number] / [id number] / [id number] / [id number] Reviewed or | | Edited By Cm Barron on 10-06-2007 Electronically signed by Randall Esparza | | 12-27-2007 04:42:06 PM | | Complications: | | None. | | | | | | Specimens: | | None. | | | | | | Hardware: | | Large Ex-Fix three 5.0 mm pins, 5 universal cylindrical pin to bar | | connectors. Three carbon fiber rods. | | | | | | Indications: | | This is a 47-year-old [facility] inmate who dislocated his knee approximately | | 10 days prior to surgery while gardening. He was seen at an outside | | hospital where his knee was reduced. He was noted preoperatively to have a | | foot drop on the left side, but angio performed at outside institution | | demonstrated no arterial injury. | | | | | | Procedure: | | After being correctly identified in the preop holding area, the patient was | | brought to the operating room and placed supine on the operating table. | | After induction of general anesthesia, a non-sterile fluoroscopic | | examination of the knee was performed which demonstrated a wide gapping | | with varus stress and marked recurvatum of the knee with extension. His | | dial test was negative. His LCL and ACL appeared to be disrupted | | on exam. The patient was then prepped and draped in the usual sterile | | fashion. Percutaneous incisions 1 cm were made over the anterolateral | | thigh just anterior to the IT band, and blunt dissection was used to carry | | the tract down to the femur. A 3.5 mm drill was then used to drill | | bicortically, and a 5.0 mm partially-threaded large Ex-Fix pins were placed | | which were confirmed to be bicortical on fluoroscopy. Attention was then | | turned to the tibia, and using similar technique, three 5.0 mm pins were | | placed in the anteromedial tibia. A combination of pin to bar | | and bar to bar connections were used to create a new spanning external | | fixator. The alignment of the knee was then checked fluoroscopically prior | | to final tightening. On true AP of the knee and accurate lateral | | fluoroscopic view, the tibia was slightly posterior translated and in | | slight varus. After giving a slight flexion movement and anteriorly | | directed translation of force to the tibia, the knee appeared to be better | | reduced and final tightening was performed. This was confirmed again on | | true AP and lateral fluoroscopic views. The pins were then cut, and a | | Kerlix bolster placed on the pins. The patient was then awakened without | | incident and taken to the PACU in stable condition. | | | | | | Dr. Esparza was present for the critical portions of this case. | | | | | | | | | | | | | | | | | | Cm Barron M.D. | | | | | | | | | | | | | | Randall Esparza M.D. | | | | | | / | | [id number] / [id number] / [id number] / [id number] | | | | | | | | | | | | | | | | | | Reviewed or Edited By Cm Barron on 10-06-2007 | | Electronically signed by Randall Esparza 12-27-2007 04:42:06 PM | | | | | | | + + + + | Transcriptions | + + | Randall Esparza MD - 10/04/2007 12:00 AM PST [id number] | | [id number] MARIEL ROBLES [id number] | | Date: 10/04/2007 Attending Surgeon: Randall Esparza M.D. Hotel Housekeeper(s): Cm | | Sherine Barron M.D. Matthew Dean McElvany, M.D. ADDENDUM | | Preoperative Diagnosis(es): Left knee dislocation. Postoperative Diagnosis(es): Left | | knee dislocation. Procedures Performed: Placement of external fixator, left lower | | extremity. I was present for the entirety of this case. For details regarding our | | exam and intraoperative findings, please refer to the operative report as dictated by | | Dr. Esparza. Randall Esparza M.D. [facility] [id number] / [id number] / [id number] / | | [id number] | | Hotel Housekeeper(s): Cm Barron M.D. | | Pablo Amador M.D. | | Paul Ewing M.D. | | | | | | ADDENDUM | | | | | | Preoperative Diagnosis(es): | | Left knee dislocation. | | | | | | Postoperative Diagnosis(es): | | Left knee dislocation. | | | | | | Procedures Performed: | | Placement of external fixator, left lower extremity. | | | | | | I was present for the entirety of this case. For details regarding our | | exam and intraoperative findings, please refer to the operative report as | | dictated by Dr. Esparza. | | | | | | | | | | | | | | | | | | Randall Esparza M.D. | | | | | | WHITNEY / HUMZA | | [id number] / [id number] / [id number] / [id number] | | | | | | | | | | | | | | | | | | | + + documented in this encounter Visit Diagnoses Not on filedocumented in this encounter"
--- OUTSIDE RECORDS SUMMARY | ~2020-04-08 | XMS | Encounter Summary ---
Demographics + + + | Address | [address] | | | [place] [address] | + + + | Home Phone [...] + + + | Author | [facility] | + + + | Organization | [facility] | + + + | Address | Unknown | + + + | Phone | Unavailable | + + + Support + + +---------+ + | Name | Relationship | Address | Phone | + + +---------+ + | Kaycee Ferraro | ECON | Unknown | | + + +---------+ + Care Team Providers + +------+ + | Care Catalyst Plant Supervisor Name | Role | Phone | + [...] + + | 01/19/ | Hospital | [facility] [address] | [place] | | | 2018 - | Encounter | [address] | R, [place], | | | | | [place] | [address] | | | 01/25/ | | [place] [address] | [address] | | | 2017 | | [phone] | [place], [place] | | | | | | [address] | | | | | | [phone] | | | | | | | | | | | | Ryne Moreland MD | | | | | | [address] | | | | | | [address] | | | | | | [place], [place] | | | | | | [address] | | | | | | [phone] | | | | | | | [...] might be differe nt from the original. [facility] DEPARTMENT OF ORTHOPAEDICS & [facility]HABILITATION INPATIENT HOSPITAL DISCHARGE SUMMARY & INTERDISCIPLINARY INSTRUCTIONS Patient: Travis Floyd CSN: [id number] Admission Date: 01/19/2018 Discharge Date: 01/25/2018 Attending Physician: Ryne Moreland MD PCP: Chery Carrion PA-C Service: [facility] Orthopaedics & Rehabilitation Diagnoses Principal Final Diagnosis: 1.Right hip femoral neck fracture. Additional Diagnoses: Patient Active Problem List: Wound infection Knee dislocation Closed right hip fracture (HCC) Closed fracture of right hip, initial encounter ([facility]) Procedures 01/21/2018 Right Hip Hemiarthroplasty Brief Hospital [...] was felt appropriate for discharge to a half-way facility, and t he patient and/or family [...] suspe ct your wound is infected. Call [facility] Orthopedics first at [phone]. Activity Weight bear as tolerated on both [...] ks. Please see Chaz Jensen [place] in [place] for follow up orthopaedic care. [address], [place] [address] office PCP: As needed for any medical [...] gabapentin Replaced by: gabapentin 400 mg Cap [facility] Orthopaedic Service Pain Policy At the [...] administration instructions. - Call Orthopedic Clinic at [phone] if any persistent, localized swelling that does [...] and ask for the orthopaedic surgery resident solution engineer. Additional Post-Op Instructions / What to Expect [...] feel that you will need more, call during business hours in order to get [...] a SNF "I certify that post-hospital inpatient half-way facility care is medically necessar y on [...] Condition on Discharge: Improved Discharging Patient To: [facility], [facility] Date and Time of Discharge Summary Completion: 01/25/2018, 10:37 AM Discharging Provider: WILFRED Wiley Discharging Attending: Ryne Moreland MD Thank you for the opportunity to take care of Travis Floyd during this inpatient stay, it has been our pleasure. WILFRED Wiley Formerly [facility] & [facility] [place] Department of Orthopaedics & Rehabilitation [address] [place] [address] Mail Code: OP31 [facility] [address] documented in t his encounter Medications at [...] above. Today's specific concerns include: Discharge to [facility] Facility Follow up with [place] in 6weeks Care Protocol Items: 1. Activity: 1. Weight bearing: full weight bearing, right lower extremity 2. ROM: Posterior hip precautions 2. VTE prophylaxis: high risk, lovenox SC 40mg daily or by weight, sequential compression d evices, will discharge with ASA EC 81mg BID [id number] 3. Pain management: oral analgesia and IV [...] suspect your wound is infected. Call [facility] Orthopedics first at [phone]. Leave dressing in place until your follow [...] as needed. Please call Dr Willy Jensen [address] [place] for future f [...] seconds WILFRED Wiley Orthopaedic Trauma Surgery Pager [phone] signed by WILFRED Blair at 01/25/2018 9:49 [...] suspect your wound is infected. Call [facility] Orthopedics first at [phone]. Leave dressing in place until your follow [...] with wound check. Incision m ay be COMMERCIAL DECORATOR if no drainage, steristrips or dressing as [...] refill < 2 seconds WILFRED Wiley Pager [phone] signed by WILFRED Blair at 01/24/2018 11:25 [...] suspect your wound is infected. Call [facility] Orthopedics first at [phone]. Leave dressing in place until your follow [...] Hull MD R2 Department of Orthopaedics p 352[address] Chele, Luis David MD - 01/22/2018 8:06 AM PDT Orthopaedic Surgery Progress Note Date: 01/22/2018 Hospital Day: 3 Orthopaedic Attending: Ryne Moreland MD Diagnosis(es): 1. Right hip femoral neck fracture. Orthopaedic Procedure(s) & Date(s): 01/20/2018: Hip hemiarthroplasty for fracture Assessment & Plan: Travis lFoyd is a 57 y.o.M with the orthopaedic [...] suspect your wound is infected. Call [facility] Orthopedics first at [phone]. Leave dressing in place until your follow [...] follow up appointment in approximately 2 wee ny with ORTHO TRAUMA & FRACTURE, Subjective: "Doing [...] Luis Hull MD Department of Orthopaedics p [address] [facility]urthy [facility] - 01/21/2018 5:40 PM PDTFormatting of [...] suspect your wound is infected. Call [facility] Orthopedics first at [phone]. Leave dressing in place until your follow [...] follow up appointment in approximately 2 wee ny with ORTHO TRAUMA & FRACTURE, Subjective: "Doing [...] capillary refill < 2 seconds Argelia Gomes, [facility] Pager [phone] Jake Decker PA-C - 01/21/2018 1:58 PM PDTBrief progress note - Bedside RN called to discuss CBGs and insulin regimen. Patient's home regimen of 36 units NPH TID and 60 units of Glargine BID was started post op eratively. legislative aide CBG of 51 was initially thought to [...] miranda care, continue PT DAQUAN WONGC Formerly [facility] & [place] [address] [address] [facility] [address] Associated attestation - Bull Fuentes MD,MPH - 01/24/2018 11:08 AM PDTFormatting of thi s note might be different from the original. ATTENDING ADDENDUM: I personally interviewed and examined the patient today with the trauma team and the physic alyssa academic assistant. I participated in the development of and agree with the assessment and plan. Travis Floyd remains hospitalized for the the following injuries and problems: Patient Active Problem List Diagnosis Wound infection Knee dislocation Closed right hip fracture (HCC) Closed fracture of right hip, initial encounter ([facility]) 1. Start PT today 2. Multimodal pain control 3. NPH/Glargine for DM 4. Should have a relatively short hospital course. 5. Discussed transfer to [facility] with Dr. Moreland.Only additional medical needs inc lude glucose control. Tertiary exam unremarkable. Dr. Moreland accepted patient. Bull Fuentes MD, MPH service plumber Trauma, Critical Care & Acute Care Surgery [facility] - 01/20/2018 4:30 PM PDT Orthopaedic Surgery Postoperative Check Patient: /Age: MRN: CSN: Date: Admission Date: Hospital Day: Orthopaedic Attending: Travis Floyd 1960 57 y.o. [id number] 01/20/2018 01/19/2018 1 Ryne Moreland MD Diagnosis(es): [...] are warm and pink. ERNESTO MCGUIRE MD [facility] Department of Orthopaedics & Rehabilitation [address] [place] [address] Mail Code: OP31 [facility] [address] Ernesto Seo MD - 01/20/2018 2:52 PM PDT . [facility] Department of Orthopaedics & Rehabilitation BRIEF OPERATIVE NOTE Patient: /Age: MRN: CSN: Date: Admission Date: Hospital Day: Orthopaedic Attending: Travis Prashant 1960 57 y.o. [id number] 01/20/2018 01/19/2018 1 Ryne Moreland MD Attending Surgeon: Ryne Moreland MD Billet Shearer(s): 1. Liam Pierre Preoperative Diagnosis(es): 1. Right [...] Per primary team Ernesto Mcguire MD Formerly [facility] & [employer] Department of Orthopaedics & Rehabilitation [address] [place] [address] Mail Code: OP31 [facility] [address] [email or web address] Pager: [phone] Aaron Pierre MD - 01/20/2018 10:15 AM [...] plans pending surgery Can Suarez MD Formerly [facility] & [facility] [employer] [facility] [facility] [address] Associated attestation - Bull Fuentes MD,MPH - 01/20/2018 3:22 PM PDTFormatting of thi s note might be different from the original. ATTENDING ADDENDUM: I personally interviewed and examined the patient today with the trauma team and the physic alyssa academic assistant. I participated in the development of and agree with the assessment and plan. Travis Floyd remains hospitalized for the the following injuries and problems: Patient Active Problem List Diagnosis Wound infection Knee dislocation Closed right hip fracture (HCC) Closed fracture of right hip, initial encounter ([facility]) To [place] today with orthopedics. Will complete a tertiary exam post-op. Bull Fuentes MD, MPH Attending Surgeon Trauma, Critical Care & Acute Care Surgery Formerly [facility] & [facility] [phone] documented in this encounter Plan of Treatment [...] | POC | | PDT | encounter ([facility]) | results section. | + +--------+ + + + | CAPILLARY BLOOD | Routin | 01/25/2018 | Closed fracture of | Results for this | | GLUCOSE (NO CHG), | e | 7:34 AM | right hip, initial | procedure are in the | | POC | | PDT | encounter ([facility]) | results section. | + +--------+ + + + | CAPILLARY BLOOD | Routin | 01/25/2018 | Closed fracture of | Results for this | | GLUCOSE (NO CHG), | e | 6:33 AM | right hip, initial | procedure are in the | | POC | | PDT | encounter ([facility]) | results section. | + +--------+ + + + | CAPILLARY BLOOD | Routin | 01/24/2018 | Closed fracture of | Results for this | | GLUCOSE (NO CHG), | e | 9:10 PM | right hip, initial | procedure are in the | | POC | | PDT | encounter ([facility]) | results section. | + +--------+ + + + | CAPILLARY BLOOD | Routin | 01/24/2018 | Closed fracture of | Results for this | | GLUCOSE (NO CHG), | e | 4:56 PM | right hip, initial | procedure are in the | | POC | | PDT | encounter ([facility]) | results section. | + +--------+ + [...] | POC | | PDT | encounter ([facility]) | results section. | + +--------+ + + + | CAPILLARY BLOOD | Routin | 01/24/2018 | Closed fracture of | Results for this | | GLUCOSE (NO CHG), | e | 6:04 AM | right hip, initial | procedure are in the | | POC | | PDT | encounter ([facility]) | results section. | + +--------+ + + + | CAPILLARY BLOOD | Routin | 01/23/2018 | Closed fracture of | Results for this | | GLUCOSE (NO CHG), | e | 8:36 PM | right hip, initial | procedure are in the | | POC | | PDT | encounter ([facility]) | results section. | + +--------+ + + + | CAPILLARY BLOOD | Routin | 01/23/2018 | Closed fracture of | Results for this | | GLUCOSE (NO CHG), | e | 4:42 PM | right hip, initial | procedure are in the | | POC | | PDT | encounter ([facility]) | results section. | + +--------+ + + + | CAPILLARY BLOOD | Routin | 01/23/2018 | Closed fracture of | Results for this | | GLUCOSE (NO CHG), | e | 12:33 PM | right hip, initial | procedure are in the | | POC | | PDT | encounter ([facility]) | results section. | + +--------+ + + + | CAPILLARY BLOOD | Routin | 01/23/2018 | Closed fracture of | Results for this | | GLUCOSE (NO CHG), | e | 7:26 AM | right hip, initial | procedure are in the | | POC | | PDT | encounter ([facility]) | results section. | + +--------+ + + + | CAPILLARY BLOOD | Routin | 01/23/2018 | Closed fracture of | Results for this | | GLUCOSE (NO CHG), | e | 4:53 AM | right hip, initial | procedure are in the | | POC | | PDT | encounter ([facility]) | results section. | + +--------+ + + + | CAPILLARY BLOOD | Routin | 01/22/2018 | Closed fracture of | Results for this | | GLUCOSE (NO CHG), | e | 9:14 PM | right hip, initial | procedure are in the | | POC | | PDT | encounter ([facility]) | results section. | + +--------+ + + + | CAPILLARY BLOOD | Routin | 01/22/2018 | Closed fracture of | Results for this | | GLUCOSE (NO CHG), | e | 4:52 PM | right hip, initial | procedure are in the | | POC | | PDT | encounter ([facility]) | results section. | + +--------+ + [...] | POC | | PDT | encounter ([facility]) | results section. | + +--------+ + + + | CAPILLARY BLOOD | Routin | 01/22/2018 | Closed fracture of | Results for this | | GLUCOSE (NO CHG), | e | 7:21 AM | right hip, initial | procedure are in the | | POC | | PDT | encounter ([facility]) | results section. | + +--------+ + + + | CAPILLARY BLOOD | Routin | 01/22/2018 | Closed fracture of | Results for this | | GLUCOSE (NO CHG), | e | 6:47 AM | right hip, initial | procedure are in the | | POC | | PDT | encounter ([facility]) | results section. | + +--------+ + [...] | POC | | PDT | encounter ([facility]) | results section. | + +--------+ + [...] | POC | | PDT | encounter ([facility]) | results section. | + +--------+ + + + | CAPILLARY BLOOD | Routin | 01/21/2018 | Closed fracture of | Results for this | | GLUCOSE (NO CHG), | e | 5:41 PM | right hip, initial | procedure are in the | | POC | | PDT | encounter ([facility]) | results section. | + +--------+ + + + | CAPILLARY BLOOD | Routin | 01/21/2018 | Closed fracture of | Results for this | | GLUCOSE (NO CHG), | e | 1:51 PM | right hip, initial | procedure are in the | | POC | | PDT | encounter ([facility]) | results section. | + +--------+ + + + | CAPILLARY BLOOD | Routin | 01/21/2018 | Closed fracture of | Results for this | | GLUCOSE (NO CHG), | e | 12:44 PM | right hip, initial | procedure are in the | | POC | | PDT | encounter ([facility]) | results section. | + +--------+ + + + | CAPILLARY BLOOD | Routin | 01/21/2018 | Closed fracture of | Results for this | | GLUCOSE (NO CHG), | e | 7:50 AM | right hip, initial | procedure are in the | | POC | | PDT | encounter ([facility]) | results section. | + +--------+ + + + | CAPILLARY BLOOD | Routin | 01/21/2018 | Closed fracture of | Results for this | | GLUCOSE (NO CHG), | e | 6:11 AM | right hip, initial | procedure are in the | | POC | | PDT | encounter ([facility]) | results section. | + +--------+ + [...] | POC | | PDT | encounter ([facility]) | results section. | + +--------+ + [...] | POC | | PDT | encounter ([facility]) | results section. | + +--------+ + [...] | POC | | PDT | encounter ([facility]) | results section. | + +--------+ + + + | CAPILLARY BLOOD | Routin | 01/19/2018 | Closed fracture of | Results for this | | GLUCOSE (NO CHG), | e | 10:00 PM | right hip, initial | procedure are in the | | POC | | PDT | encounter ([facility]) | results section. | + +--------+ + [...] MERVIN | [address] | [place], [place] | | | CHARLES NEAL OF CARE | [address] | [address] | | | TESTS | | | [...] M[facility] | [address] | [place], [place] | | | CHARLES NEAL OF NISREEN | [facility] | [address] | | | TESTS | | | [...] (H) | 70 - 99 mg/dL | [facility] - | | | GLUCOSE, | [...] JEFFRIES | [address] | [place], [place] | | | VAL POINT OF CARE | [address] | [address] | | | TESTS | | | [...] MERVIN | [address] | [place], [place] | | | CHARLES NEAL OF CARE | [address] | [address] | | | TESTS | | | [...] MERVIN | [address] | [place], [place] | | | CHARLES NEAL OF CARE | [facility] | [address] | | | TESTS | | | [...] (H) | 70 - 99 mg/dL | [facility] - | | | GLUCOSE, | [...] JEFFRIES | [address] | [place], [place] | | | VAL POINT OF CARE | [address] | [address] | | | TESTS | | | [...] [facility] | [address] | [place] [address] | | | SERVICES, CORE | PARK [...] | | | LABORATORY | | | YEMENI | | | SERVICES, | | | [...] the MDRD equation recommended by the | [facility] | | National Kidney Disease Education [...] | + + + + + | [facility] | [address] [facility] | [place] [address] | | | SERVICES, CORE | PARK [...] [facility] | [address] | [place], [place] | | | CHARLES NEAL OF CARE | [facility] | [address] | | | TESTS | | | [...] JEFFRIES | [address] | [place], [place] | | | VAL POINT OF CARE | [address] | [address] | | | TESTS | | | [...] MARQU[facility] | [address] | [place], [place] | | | VAL POINT OF CARE | [address] | [address] | | | TESTS | | | [...] MAR[facility] | [address] | [place], [place] | | | VAL POINT OF CARE | [address] | [address] | | | TESTS | | | [...] JEFFRIES | [address] | [place], [place] | | | VAL POINT OF CARE | [address] | [address] | | | TESTS | | | [...] MARQU[facility] | [address] | [place], [place] | | | CHARLES NEAL OF CARE | [address] | [address] | | | TESTS | | | [...] [facility] | [address] | [place], [place] | | | VAL POINT OF CARE | [address] | [address] | | | TESTS | | | [...] JEFFRIES | [address] | [place], [place] | | | VAL POINT OF CARE | [address] | [address] | | | TESTS | | | [...] | | POC | | | CHARLES ENAL | | | | | | OF [...] MARQU[facility] | [address] | [place], [place] | | | CHARLES NEAL OF CARE | [facility] | [address] | | | TESTS | | | [...] Note | + + | Service Account, Amprius In Interface - 01/22/2018 6:43 PM PDT [...] [facility] | [address] | [place], [place] | | | CHARLES NEAL OF CARE | [facility] | [address] | | | TESTS | | | | + + + + + CAPILLARY BLOOD GLUCOSE (NO CHG), POC (01/22/2018 7:21 AM PDT) + +-------+ + + + | Component | Value | Ref Range | Performed | Pathologist | | | | | At | Signature | + +-------+ + + + | BLOOD | 99 | 70 - 99 mg/dL | [facility] - | | | GLUCOSE, | [...] MAR[facility] | [address] | [place], [place] | | | CHARLES NEAL OF NISREEN | [facility] | [address] | | | TESTS | | | [...] JEFFRIES | [address] | [place], [place] | | | CHARLES NEAL OF NISREEN | [address] | [address] | | | TESTS | | | [...] MAR[facility] | [address] | [place], [place] | | | HILL, POINT OF CARE | [address] | [address] | | | TESTS | | | [...] MARJEFFAM | [address] | [place], [place] | | | CHARLES NEAL OF [facility] | [facility] | [address] | | | TESTS | | | [...] [facility] | [address] | [place] [address] | | | SERVICES, CORE | PARK [...] | | | LABORATORY | | | YEMENI | | | SERVICES, | | | [...] | + + + + + | [facility] | [address] | [place] [address] | | | SERVICES, CORE | JUSTUS [...] | + + + + + | [facility] | [address] | [place] [address] | | | JOSELUIS MAHMOOD | JUSTUS [...] MARQUAM | [address] | [place], [place] | | | VAL POINT OF CARE | [address] | [address] | | | TESTS | | | [...] MARQU[facility] | [address] | [place], [place] | | | CHARLES NEAL OF CARE | [address] | [address] | | | TESTS | | | [...] JEFFRIES | [address] | [place], [place] | | | AVL POINT OF CARE | [address] | [address] | | | TESTS | | | [...] MAR[facility] | [address] | [place], [place] | | | VAL POINT OF CARE | [address] | [address] | | | TESTS | | | [...] THADDE[facility] | [address] | [place], [place] | | | VAL POINT OF CARE | [address] | [address] | | | TESTS | | | [...] JEFFRIES | [address] | [place], [place] | | | CHARLES NEAL OF NISREEN | [address] | [address] | | | TESTS | | | [...] [facility] | [address] | [place], [place] | | | CHARLES NEAL OF CARE | [address] | [address] | | | TESTS | | | [...] | | | LABORATORY | | | YEMENI | | | SERVICES, | | | [...] | + + + + + | [facility] | [address] [facility] | [place] [address] | | | TIMOTEO, JOSELUIS | JUSTUS [...] | + + + + + | [facility] | [address] [facility] | [place] [address] | | | SERVICES, CORE | PARK [...] | + + + + + | [facility] | [address] | [place] [address] | | | SERVICES, JOSELUIS | JUSTUS [...] MAR[facility] | [address] | [place], [place] | | | HILL, POINT OF CARE | [address] | [address] | | | TESTS | | | [...] + + + | [facility] | [address] | [place], [place] | | | CHARLES NEAL OF [facility] | [address] | [address] | | | TESTS | | | [...] [facility] | [address] | [place], [place] | | | VAL POINT OF CARE | [address] | [address] | | | TESTS | | | | + + + + + PROCEDURE NOTE (01/20/2018 3:06 PM PDT) + + + | Narrative | Performed At | + + + | Ryne Moreland MD 01/23/2018 8:53 AM Date: 01/20/2018 | | | Attending Surgeon: Ryne Moreland M.D. Billet Shearer(s): Ernesto | | | Chip Basurto Preoperative Diagnosis(es): Right hip femoral neck | | | fracture. Postoperative Diagnosis(es): Same Procedure Performed: | | | Hip hemiarthroplasty for fracture. Components Used: [employer] echo | | | high offset size [...] secured on the table with the "hip supervisor floor assembly". All bony prominences | | | were [...] the greater trochanter | | | using iyihti-ul-euro technique and tied down tightly. A drain [...] case. Ryne Moreland M.D. | | | Supervisor of Orthopaedics [facility] | | | [place] | | + + + CAPILLARY BLOOD [...] TH[facility] | [address] | [place], [place] | | | CHARLES NEAL OF CARE | [facility] | [address] | | | TESTS | | | [...] (H) | 70 - 99 mg/dL | [facility] - | | | GLUCOSE, | [...] JEFFRIES | [address] | [place], [place] | | | CHARLES NEAL OF CARE | [address] | [address] | | | TESTS | | | [...] [facility] | [address] | [place] | | | CARDIOLOGY | [address] | [address] | | + + + + + [...] + + | [facility] | [address] | [place] [address] | | | SERVICES, CORE | JUSTUS [...] | | | LABORATORY | | | YEMENI | | | SERVICES, | | | [...] | + + + + + | [facility] | [address] [facility] | [place] [address] | | | JOSELUIS MAHMOOD | JUSTUS [...] [facility] | [address] | [place] [address] | | | SERVICES, JOSELUIS | [address] | | | + + + + + X-RAY PORTABLE CHEST 1 VIEW (01/20/2018 5:59 AM PDT) + + | Specimen | + + | | + + + + + | Narrative | Performed At | + + + | EXAM: CA CHEST 1 VIEW HISTORY: Right femur fracture, [...] Note | + + | Service Account, Amprius In Interface - 01/20/2018 8:33 AM PDT EXAM: CA CHEST 1 | | VIEW HISTORY: Right [...] [facility] | [address] | [place], [place] | | | VAL POINT OF CARE | [address] | [address] | | | TESTS | | | [...] [facility] | [address] | [place], [place] | | | CHARLES NEAL OF CARE | [address] | [address] | | | TESTS | | | [...] - [facility] | [address] | [place], [place] | | | VAL [place] [facility] | [address] | [address] | | | TESTS | | | [...] Note | + + | Service Account, [employer] In Interface - 01/20/2018 1:41 PM [...] | | + +---------+ + + | [facility] RADIOLOGY | | | | | [...] Note | + + | Service Account, [employer] Res In Interface - 01/19/2018 7:22 PM [...] [facility] | [address] | [place], [place] | | | VAL POINT OF CARE | [address] | [address] | | | TESTS | | | [...] | + + + + + | [facility] | [address] | [place] [address] | | | SERVICES, JOSELUIS | JUSTUS [...] | + + + + + | [facility] | [address] | [place] [address] | | | SERVICES, | [address] [...] | + + + + + | [facility] | [address] | [place] [address] | | | SERVICES, CORE | PARK [...] | + + + + + | [facility] | [address] | [place] [address] | | | SERVICES, CORE | JUSTUS [...] [facility] | [address] | [place] [address] | | | SERVICES, CORE | PARK [...] [facility] | [address] | [place] [address] | | | SERVICES, | [address] [...] | + + + + + | [facility] | [address] | [place] [address] | | | SERVICES, | [address] [...] | + + + + + | [facility] | [address] | [place] [address] | | | SERVICES, | [address] [...] | + + + + + | [facility] | [address] | [place] [address] | | | SERVICES, CORE | JUSTUS [...] (H)Comment: Hgb A1C | <5.7 % | [facility] | | | A1C | Interpretive [...] | [facility] | | considered for monitoring tank terminal gauger glycemic control in patients with: | LABORATORY [...] | + + + + + | [facility] | [address] | [place] [address] | | | SERVICES, SPECIAL | JUSTUS [...]
--- OUTSIDE RECORDS SUMMARY | ~2020-04-08 | XMS | Encounter Summary ---
Demographics + + + | Address | [address] | | | [place] [address] | + + + | Home Phone | | + + + | Preferred Language | Unknown | + + + | Marital Status | Single | + + + | Latter-Day Affiliation | CHR | + + + | Race | White | + + + | Ethnic Group | Not or | + + + Author + + + | Author | [facility] | + + + | Organization | [facility] | + + + | Address | Unknown | + + + | Phone | Unavailable | + + + Support + + +---------+ + | Name | Relationship | Address | Phone | + + +---------+ + | Kaycee Ferraro | ECON | Unknown | | + + +---------+ + Care Team Providers + +------+ + | Care Battery Installer Name | Role | Phone | + +------+ + PCP | Unavailable | + +------+ + Encounter Details +--------+ + + + + | Date | Type | Department | Care Team | Description | +--------+ + + + + | 10/04/ | Procedure - | Plastic and | Cm Barron, | Operative Report | | 2007 | | Reconstructive | Pending Sale To [facility] & | | | | Transcribed | Surgery at [facility] [address] [facility] | | | | | Mary Goldsmith | [address] | | | | | Mailcode: 5P | Frida Prasad [place], | | | | | [facility] | [place] [address] | | | | | and Healing, | | | | | | Building , | | | | | | [place], [place] | | | | | | [address] | | | | | | [phone] | | | +--------+ + + + [...] Barron MD - 10/04/2007 12:00 AM PST [id number] | | [id number] MARIEL RIVERUEL [id number] Date: | | 10/04/2007 Attending Surgeon: Randall Esparza M.D. Hall Monitor(s): Cm | | Sherine Barron M.D. Matthew [...] Indications: This is a 47-year-old | | nursing home inmate who dislocated his knee approximately 10 [...] M.D. Randall Esparza M.D. / | | [id number] / [id number] / [id number] / [id number] Reviewed or | | Edited By Cm [...] Indications: | | This is a 47-year-old nursing home inmate who dislocated his knee approximately | [...] | | | | / | | [id number] / [id number] / [id number] / [id number] | | | | | | | | | | | | | | | | | | Reviewed or Edited By Cm Barron on 10-06-2007 | | Electronically signed by Randall Esparza 12-27-2007 04:42:06 PM | | | | | | | + + + + | Transcriptions | + + | Randall Esparza MD - 10/04/2007 12:00 AM PST [id number] | | [id number] MARIEL ROBLES [id number] | | Date: 10/04/2007 Attending Surgeon: Randall Esparza M.D. Hall Monitor(s): Cm | | Sherine Barron M.D. Matthew [...] | | Dr. Esparza. Randall Esparza M.D. [facility] [id number] / [id number] / [id number] / | | [id number] | | Hall Monitor(s): Cm Barron M.D. | | Pablo Amador [...] | | WHITNEY / HUMZA | | [id number] / [id number] / [id number] / [id number] | | | | | | | | | | | | | | | | | | | + + documented in this encounter Visit Diagnoses Not on filedocumented in this encounter"
--- OUTSIDE RECORDS SUMMARY | ~2020-04-08 | XMS | Encounter Summary ---
Demographics + + + | Address | [address] | | | [place] [address] | + + + | Home Phone [...] Author + + + | Author | [facility] | + + + | Organization | [facility] | + + + | Address | Unknown | + + + | Phone | Unavailable | + + + Support + + +---------+ + | Name | Relationship | Address | Phone | + + +---------+ + | Kaycee Ferraro | ECON | Unknown | | + + +---------+ + Care Team Providers + +------+ + | Care Lay Out Drafter Name | Role | Phone | + +------+ + | No Pcp Per Patient | PCP | Unavailable | + +------+ + Encounter Details +--------+ + + + + | Date | Type | Department | Care Team | Description | +--------+ + + + + | 01/03/ | Documentati | Orthopaedics | Louise Raza | | | 2007 | on | Faculty at [place] | | | | | | for Health and | | | | | | Healing [address] | | | | | | [facility] for | | | | | | Health and Healing, | | | | | | Building | | | | | | Floor [place], [place] | | | | | | [address] | | | | | | [phone] | | | +--------+ + + + [...]
--- OUTSIDE RECORDS SUMMARY | ~2020-04-08 | XMS | Encounter Summary ---
Demographics + + + | Address | [address] | | | [place] [address] | + + + | Home Phone | | + + + | Preferred Language | Unknown | + + + | Marital Status | Single | + + + | Yazidism Affiliation | 1013 | + + + | Race | Unknown | + + + | Ethnic Group | Unknown | + + + Author + + + | Author | [facility] | | | and [place] | + + + | Organization | [facility] | | [...] Team Providers + +------+ + | Care Crew Scheduler Name | Role | Phone | + +------+ + | Unknown, Doctor | PCP | | + +------+ + Encounter Details +--------+ + + + + | Date | Type | Department | Care Team | Description | +--------+ + + + + | 05/04/ | Hospital | C GENERIC IP | Conversion | Diagnosis unknown | | 2018 | Encounter | CONVERSION DEP [address] | Transaction, | | | | | [address] | Provider Unknown | | | | | [place] | [phone] | | | | | [address] | | | | | | [phone] | | | +--------+ + + + [...] | + +--------+ + + + | XR CHEST 1 VIEW | Routin | 05/04/2018 | | Results for this | | | e | 9:21 AM | | procedure are in the | | | | PDT | | results section. | + +--------+ + + + documented in this encounter Results XR Chest 1 Vw (05/04/2018 9:21 AM PDT) + + | Specimen | + + | | + + + + + | Narrative | Performed At | + + + | This is a non-reportable procedure without a radiologist report and | | | is used for image storage only | | + + + + + | Procedure Note | + + | Erik Hamm - 05/03/2019 11:06 AM PDT This is a non-reportable procedure | | without a radiologist report and isused for image storage only | + + documented in this encounter Visit Diagnoses + + | Diagnosis | + + | Diagnosis unknown Other unknown and unspecified cause of morbidity or mortality | + + documented in this encounter"
--- OUTSIDE RECORDS SUMMARY | ~2020-04-08 | XMS | Encounter Summary ---
Demographics + + + | Address | [address] | | | [place] [address] | + + + | Home Phone | | + + + | Preferred Language | Unknown | + + + | Marital Status | Single | + + + | Tenriism Affiliation | 1013 | + + + | Race | Unknown | + + + | Ethnic Group | Unknown | + + + Author + + + | Author | [facility] | | | and [place] | + + + | Organization | [facility] | | | and [place] | + + + | Address | Unknown | + + + | Phone | Unavailable | + + + Support + + +---------+ + | Name | Relationship | Address | Phone | + + +---------+ + | Kaycee Jasmine | ECON | Unknown | | + + +---------+ + Care Team Providers + +------+ + | Care Spindle Carver Name | Role | Phone | + +------+ + | Chery Carrion | PCP | | + +------+ + Reason for Visit +--------+--------+ + | Reason | Onset | Comments | | | Date | | +--------+--------+ + | Other | 03/27/ | Returning call | | | 2020 | | +--------+--------+ + Encounter Details +--------+ + + + + | Date | Type | Department | Care Team | Description | +--------+ + + + + | 03/27/ | Telephone | [facility] | Fuentes Ahumada MD | Other (Returning | | 2019 | | VASCULAR SURGERY | [address] | call) | | | | [address] | [place], [place] | | | | | [place], [place] | [address] | | | | | [address] | | | | | | [phone] | | | +--------+ + + + [...] this encounter Miscellaneous Notes Telephone Encounter - Catherine Arellano Moshe - 03/27/2020 11:12 AM Sonia, is calling dudley Hinton (Returning call) and would like a call back. Additional Call Details: Not sure who called-no message left. Please call back on home num max listed. If this is a symptom based call, was patient offered triage? Not Applicable If this is a symptom based call and you were unable to immediately transfer the call to a p charlee dietary supervisor was caller made aware that if at any time he feels it is an emergency they austin uld call 911 or go to the nearest emergency room? not applicable documented in this encounter Plan of Treatment [...]
--- OUTSIDE RECORDS SUMMARY | ~2020-04-08 | XMS | Encounter Summary ---
Demographics + + + | Address | [address] | | | [place] [address] | + + + | Home Phone | | + + + | Preferred Language | Unknown | + + + | Marital Status | Single | + + + | Sabianism Affiliation | CHR | + + + [...] Team Providers + +------+ + | Care Construction Supervisor Name | Role | Phone | [...] | | | Osmar Mailcode: RPB07 | [facility], [place] | | | | | [place], [place] | [address] | | | | | [address] | [phone] | | | | | [phone] | | | +--------+ + + + [...] | + + + + + | [facility] DEPARTMENT OF | [address] [facility] | [place] [address] | | | PATHOLOGY | [address] | | | + + + + + | [facility] DEPARTMENT OF | [facility] | [place] [address] | | | PATHOLOGY | [address] [...] | + + + + + | [facility] DEPARTMENT OF | [address] | [place] [address] | | | PATHOLOGY | [address] | | | + + + + + | [facility] DEPARTMENT OF | [address] | [place] [address] | | | PATHOLOGY | [address] [...] DEPARTMENT OF | [address] | [place] [address] | | | PATHOLOGY | [address] | | | + + + + + | [facility] DEPARTMENT OF | [address] [facility] | [place] [address] | | | PATHOLOGY | [address] [...] cmnt | 60 - 99 mg/dL | [facility] | | | PLASMA | | | [...] DEPARTMENT OF | [address] | [place] [address] | | | PATHOLOGY | [address] | | | + + + + + | [facility] DEPARTMENT OF | [address] | [place] [address] | | | PATHOLOGY | [address] [...] + + + + + | [facility] | [address] [facility] | [place] [address] | | | PATHOLOGY | [address] | | | + + + + + | [facility] | [facility] | [place] [address] | | | PATHOLOGY | [address] [...] DEPARTMENT OF | [address] | [place] [address] | | | PATHOLOGY | [address] | | | + + + + + | [facility] DEPARTMENT OF | [address] | [place] [address] | | | PATHOLOGY | [address] [...] + + + + + | [facility] | [address] [facility] | [place] [address] | | | PATHOLOGY | [address] | | | + + + + + | [facility] | [facility] | [place] [address] | | | PATHOLOGY | [address] [...] | + + + + + | [facility] DEPARTMENT | [address] [facility] | [place] [address] | | | PATHOLOGY | [address] | | | + + + + + | [facility] DEPARTMENT OF | [facility] | [place] [address] | | | PATHOLOGY | [address] [...] | + + + + + | [facility] DEPARTMENT OF | [address] | [place] [address] | | | PATHOLOGY | [address] | | | + + + + + | [facility] DEPARTMENT OF | [address] | [place] [address] | | | PATHOLOGY | [address] [...] + + + + + | [facility] | [facility] [address] | [place] [address] | | | PATHOLOGY | [address] | | | + + + + + | [facility] DEPARTMENT OF | [facility] [address] | [place] [address] | | | PATHOLOGY | [address] [...] DEPARTMENT OF | [address] | [place] [address] | | | PATHOLOGY | [address] | | | + + + + + | [facility] DEPARTMENT OF | [address] [facility] | [place] [address] | | | PATHOLOGY | [address] [...] + + + + + | [facility] | [address] | [place] [address] | | | PATHOLOGY | [address] | | | + + + + + | [facility] | [address] | [place] [address] | | | PATHOLOGY | [address] [...] by | | | | | | [facility] | | | | | | [facility]. | | | | + + + + + + + + | Specimen | + + | | + + + + + + + | Performing | Address | City/State/Zipcode | Phone Number | | Organization | | | | + + + + + | [facility] | [address] | [place] [address] | | | LABORATORY | | | [...] DEPARTMENT OF | [address] | [place] [address] | | | PATHOLOGY | [address] | | | + + + + + | [facility] DEPARTMENT OF | [address] | [place] [address] | | | PATHOLOGY | [address] [...] 10.9 | 4.4 - 11.0 K/cu | [facility] | | | COUNT | | mm [...] | + + + + + | [facility] DEPARTMENT OF | [address] | [place] [address] | | | PATHOLOGY | [address] | | | + + + + + | [facility] DEPARTMENT OF | [address] [facility] | [place] [address] | | | PATHOLOGY | [address] [...] + + + + + | [facility] | [address] [facility] | [place] [address] | | | PATHOLOGY | [address] | | | + + + + + | [facility] | [address] [place] [address] | [place] [address] | | | PATHOLOGY | [address] [...] + | [facility] DEPARTMENT OF | [address] [facility] | [place] [address] | | | PATHOLOGY | [address] | | | + + + + + | [facility] DEPARTMENT OF | [address] [facility] | [place] [address] | | | PATHOLOGY | [address] [...] | + + + + + | [facility] DEPARTMENT OF | [facility] | [place] [address] | | | PATHOLOGY | [address] | | | + + + + + | [facility] DEPARTMENT OF | [facility] [address] | [place] [address] | | | PATHOLOGY | [address] [...] | + + + + + | [facility] DEPARTMENT OF | [address] | [place] [address] | | | PATHOLOGY | [address] | | | + + + + + | [facility] DEPARTMENT OF | [address] | [place] [address] | | | PATHOLOGY | [address] [...] DEPARTMENT OF | [address] | [place] [address] | | | PATHOLOGY | [address] | | | + + + + + | [facility] DEPARTMENT OF | [address] [facility] | [place] [address] | | | PATHOLOGY | [address] [...] + + + + + | [facility] | [facility] | [place] [address] | | | PATHOLOGY | [address] | | | + + + + + | [facility] | [address] [facility] | [place] [address] | | | PATHOLOGY | [address] [...] | + + + + + | [facility] | [address] | [place] [address] | | | PATHOLOGY | [address] | | | + + + + + | [facility] | [address] | [place] [address] | | | PATHOLOGY | [address] [...]
--- OUTSIDE RECORDS SUMMARY | ~2020-04-08 | XMS | Encounter Summary ---
Demographics + + + | Address | [address] | | | [place] [address] | + + + | Home Phone | | + + + | Preferred Language | Unknown | + + + | Marital Status | Single | + + + | Shinto Affiliation | CHR | + + + [...] Team Providers + +------+ + | Care Weed Controller Name | Role | Phone | + [...] | 2007 | on | Faculty at [place] | MAIKEL Linn | | | | | for Health and | | | | | | Healing [address] | | | | | | [facility] for | | | | | | Health and Healing, | | | | | | Building | | | | | | Floor [place], [place] | | | | | | [address] | | | | | | [phone] | | | +--------+ + + + [...]
--- OUTSIDE RECORDS SUMMARY | ~2020-04-08 | XMS | Encounter Summary ---
Demographics + + + | Address | [address] | | | [place] [address] | + + + | Home Phone | | + + + | Preferred Language | Unknown | + + + | Marital Status | Single | + + + | Cheondoism Affiliation | CHR | + + + | Race | White | + + + | Ethnic Group | Not or | + + + Author + + + | Author | [facility] | + + + | Organization | [facility] | + + + | Address | Unknown | + + + | Phone | Unavailable | + + + Support + + +---------+ + | Name | Relationship | Address | Phone | + + +---------+ + | Kaycee Ferraro | ECON | Unknown | | + + +---------+ + Care Team Providers + +------+ + | Care Senior Hadoop Developer Name | Role | Phone | + [...] | Office | Preoperative | 2, [facility] [address] | Knee Dislocation; | | 2007 | Visit | Medicine Clinic at | [facility] [address] | Diabetes Mellitus | | | | 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 | | [...] the | | | | PDT | ([facility]) HTN | results section. | | | [...] the | | | | PDT | ([facility]) HTN Other | results section. | | [...] | + + + + + | [facility] | [address] | [place] [address] | | | PATHOLOGY | [address] | | | + + + + + | [facility] | [address] | [place] [address] | | | PATHOLOGY | [address] [...] | + + + + + | [facility] | [address] [facility] | [place] [address] | | | PATHOLOGY | [address] | | | + + + + + | [facility] | [address] [facility] | [place] [address] | | | PATHOLOGY | [address] [...] | + + + + + | [facility] | [address] [facility] | [place] [address] | | | PATHOLOGY | [address] | | | + + + + + | [facility] | [address] [facility] | [place] [address] | | | PATHOLOGY | [address] [...] Performed At | + + + | [id number] Estimated GFR > 60 mL/min/1.73 sq m if non- | [facility] | | [id number] Estimated GFR > 60 mL/min/1.73 sq m [...] | + + + + + | [facility] DEPARTMENT OF | [address] [facility] | [place] [address] | | | PATHOLOGY | [address] | | | + + + + + | [facility] DEPARTMENT | [address] | [place] [address] | | | PATHOLOGY | [address] [...] view image for the detailed interpretation from [employer] results. | CARDIOLOGY | | | | + + + + + + + + | Performing | Address | City/State/Zipcode | Phone Number | | Organization | | | | + + + + + | [facility] DEPT OF | [address] | [place], [place] | | | CARDIOLOGY | [facility] | [address] | | + + + + + | [facility] DEPT OF | [address] | [place], [place] | | | CARDIOLOGY | [facility] | [address] | | + + + + + [...]
--- OUTSIDE RECORDS SUMMARY | ~2020-04-08 | XMS | Encounter Summary ---
Demographics + + + | Address | [address] | | | [place] [address] | + + + | Home Phone | | + + + | Preferred Language | Unknown | + + + | Marital Status | Single | + + + | Hoahaoism Affiliation | CHR | + + + | Race | White | + + + | Ethnic Group | Not or | + + + Author + + + | Author | [facility] | + + + | Organization | [facility] | + + + | Address | Unknown | + + + | Phone | Unavailable | + + + Support + + +---------+ + | Name | Relationship | Address | Phone | + + +---------+ + | Kaycee Ferraro | ECON | Unknown | | + + +---------+ + Care Team Providers + +------+ + | Care Electrical Equipment Technician Name | Role | Phone | + [...] | 2007 | Visit | Faculty at [place] | [address] | (Primary Dx) | | | | for Health and | [address] | | | | | Healing [address] | [place], [place] | | | | | [facility] | [address] | | | | | Health and Healing, | [phone] | | | | | [facility] | | | | | | Floor [facility] [place] | | | | | | [address] | | | | | | [phone] | | | +--------+---------+ + + + [...] surgeries scheduled to take place on the [place] at the [facility]: Surgeries scheduled in the [facility] ([address] [place] [address]): registration is located on the 4th floor of [facility] (Day Surgery). Surgeries scheduled in the [facility]: registration is located on the 9th floor. Surgeries scheduled in [facility]: registration is located on the 6th floor. Surgeries scheduled in the [facility]: registration is located i n the [facility] lobby on the first floor. For surgeries scheduled to take place at the [facility]: registration is l ocated on the 4th [...]
--- OUTSIDE RECORDS SUMMARY | ~2020-04-08 | XMS | Encounter Summary ---
Demographics + + + | Address | [address] | | | [place] [address] | + + + | Home Phone | | + + + | Preferred Language | Unknown | + + + | Marital Status | Single | + + + | Uatsdin Affiliation | 1013 | + + + | Race | Unknown | + + + | Ethnic Group | Unknown | + + + Author + + + | Author | [facility] | | | and [place] | + + + | Organization | [facility] | | | [...] Team Providers + +------+ + | Care Home Health Clinician Name | Role | Phone | + +------+ + | Chery Carrion | PCP | | + +------+ + Reason for Visit + +--------+ + | Reason | Onset | Comments | | | Date | | + +--------+ + | Referral | 02/27/ | | | | 2020 | | + +--------+ + Encounter Details +--------+ + + + + | Date | Type | Department | Care Team | Description | +--------+ + + + + | 02/27/ | Telephone | [facility] | Kunal Ford MD | Referral | | 2020 | | VASCULAR SURGERY | [address] | | | | | [address] | [place], [place] | | | | | [place], [place] | [address] | | | | | [address] | [phone] | | | | | [phone] | | | +--------+ + + + [...] this encounter Miscellaneous Notes Telephone Encounter - Za Cristina - 02/28/2020 1:28 PM PDTSamudolores, is calling dudley g Referral and would like a call back. Additional Call Details: Returning call to schedule from new referral. Please call back at the home number. If this is a symptom based call, was patient offered triage? Not Applicable If this is a symptom based call and you were unable to immediately transfer the call to a noa deshpande sanitation director was caller made aware that if at [...]
--- OUTSIDE RECORDS SUMMARY | ~2020-04-08 | XMS | Encounter Summary ---
Demographics + + + | Address | [address] | | | [place] [address] | + + + | Home Phone | | + + + | Preferred Language | Unknown | + + + | Marital Status | Single | + + + | Restorationism Affiliation | CHR | + + + [...] Team Providers + +------+ + | Care Security Expert Name | Role | Phone | + [...] | | | | | AND | [place], [place] | [address] | | | | | REHABILITATI | [address] | Phone: | | | | | ON | | [phone] | | | | | | | Fax: | | | | | | | [phone] | +--------+--------+ + + + + Reason [...] | | | Epic Dept | [facility] [address] | | | | | | [address] | | | | | | | [facility] | | | | | | | [facility] and | | | | | | | [facility]aling, | | | | | | | [address], | | | | | | | 12th Floor | | | | | | | [place], [place] | | | | | | | [address] | | | | | | | Phone: | | | | | | | [phone] | | | | | | | Fax: | | | | | | | [phone] | +--------+--------+ + + + + Encounter Details +--------+---------+ + + + | Date | Type | Department | Care Team | Description | +--------+---------+ + + + | 10/25/ | Office | Orthopaedics | Argelia Gutierrez | Knee Dislocation | | 2008 | Visit | [facility] | [facility] | (Primary Dx) | | | | for Health and | | | | | | Healing [address] | | | | | | Ave [facility] | | | | | | [facility] and [facility], | | | | | | Building | | | | | | Floor [facility] [place] | | | | | | [address] | | | | | | [phone] | | | +--------+---------+ + + + [...]
--- OUTSIDE RECORDS SUMMARY | ~2020-04-08 | XMS | Encounter Summary ---
Demographics + + + | Address | [address] | | | [place] [address] | + + + | Home Phone [...] Author + + + | Author | [facility] | + + + | Organization | [facility] | + + + | Address | Unknown | + + + | Phone | Unavailable | + + + Support + + +---------+ + | Name | Relationship | Address | Phone | + + +---------+ + | Kaycee Ferraro | ECON | Unknown | | + + +---------+ + Care Team Providers + +------+ + | Care Senior Sustainability Consultant Name | Role | Phone | + +------+ + | No Pcp Per Patient | PCP | Unavailable | + +------+ + Reason for Visit + + + | Reason | Comments | + + + | Postoperative | feeling sore | | infection | | + + + Encounter Details +--------+---------+ + + + | Date | Type | Department | Care Team | Description | +--------+---------+ + + + | 01/12/ | Office | Orthopaedics | Randall Esparza, | Knee Dislocation | | 2007 | Visit | [facility] | [address] | (Primary Dx) | | | | [employer] and | [address] | | | | | Healing [address] | [facility] [place] | | | | | [facility] for | [address] | | | | | Health and Healing, | [phone] | | | | | [facility] | | | | | | Floor [place], [place] | | | | | | [address] | | | | | | [phone] | | | +--------+---------+ + + + [...] + documented as of this encounter Progress Randall Saucedo - 01/13/2008 3:52 PM LOISJosé Miguel Cerda is a 47 y.o. male s/p left knee ex fix removal and JAYME. He is progressing well. PE: Pin tracks well healed. ROM 0-95. Persistent LCL laxity. A/P: Plan functional brace and HEP. I reviewed recommended exercises. He may follow up now with the orthopedist locally and return if having ongoing problems. documented in this encounter Plan of Treatment Not on filedocumented as of this encounter Visit Diagnoses + + | Diagnosis | + + | Knee dislocation - Primary Closed dislocation of knee, unspecified part | + + documented in this encounter"
--- OUTSIDE RECORDS SUMMARY | ~2020-04-08 | XMS | Encounter Summary ---
Demographics + + + | Address | [address] | | | [place] [address] | + + + | Home Phone | | + + + | Preferred Language | Unknown | + + + | Marital Status | Single | + + + | Restorationist Affiliation | CHR | + + + | Race | White | + + + | Ethnic Group | Not or | + + + Author + + + | Author | [facility] | + + + | Organization | [facility] | + + + | Address | Unknown | + + + | Phone | Unavailable | + + + Support + + +---------+ + | Name | Relationship | Address | Phone | + + +---------+ + | Kaycee Ferraro | ECON | Unknown | | + + +---------+ + Care Team Providers + +------+ + | Care Flag Signaler Name | Role | Phone | + [...] | | | | | | Mailcode: [facility] | | | | | | | [facility] | | | | | | | for Health | | | | | | | and Healing, | | | | | | | [address] | | | | | | | [place], [place] | | | | | | | [address] | | | | | | | Phone: | | | | | | | [phone] | | | | | | | Fax: | | | | | | | [phone] | +--------+--------+ + + + + Encounter Details +--------+ + + + + | Date | Type | Department | Care Team | Description | +--------+ + + + + | 01/03/ | Hospital | [facility] | Randall Esparza, | | | 2007 | Encounter | STAY [address] | [address] [facility] | | | | | Rupal Mailcode: [facility] | [address] | | | | | [facility] | [place], [place] | | | | | Health and Healing, | [address] | | | | | [place] [address] | [phone] | | | | | [place], [place] | | | | | | [address] | | | | | | [phone] | | | +--------+ + + + [...] 3:00 PM PDT Electronically signed by Randall Esparza at 7:44 PM PDTdocumented in this encounter Discharge Instructions Instructions Cathy Cardenas - 01/04/2008 Expected nursing outcomes met PADDS:9 Discharge instructions:Home care after knee arthroscopy; Drs orders written for [facility] All questions answered Last pain medication:1430 [...] Procedure Note | + + | Randall Esparaz MD - 01/04/2008 3:00 PM PDT | [...] + | KNEE 2 | Med Rec No:[id number] | | | | | VIEWS LEFT [...] ANDREAHERZKA, | | | | | | M.[id number] 2 VIEWS | | | | | | LEFT completed on | | | | | | 01/04/2008 1:43 | | | | | | PMAccession | | | | | | #[id number]:LEFT | | | | | | KNEE, [...] | | + +---------+ + + | [facility] DEPARTMENT OF | | | | | RADIOLOGY | | | | + +---------+ + + OPERATION RECORD (01/04/2008 12:00 AM PDT) + + | Procedure Note | + + | Randall Esparza MD - 01/04/2008 12:00 AM PDT [id number] | | [id number] MARIEL ROBLES [id number] | | Date: 01/04/2008 Attending Surgeon: Randall Esparza M.D. Sack Repairer(s): | | Louise Raza M.D. Preoperative Diagnosis(es): [...] a knee dislocation and was treated at [facility]. He was managed with an [...] days for followup. Randall Esparza M.D. / [id number] / [id number] / | | [phone] / | | | | EBL: | | Minimal. | | | | | | Complications: | | None noted. | | | | | | Indications: | | This is a 47-year-old man, who sustained a knee dislocation and was treated | | at [facility]. He was managed with an [...] | | | | / | | [id number] / [id number] / [id number] / | | | | | | | | | | | | | | | | | | | | | | | + + documented in this encounter Visit Diagnoses Not on filedocumented in this encounter
--- OUTSIDE RECORDS SUMMARY | ~2020-04-08 | XMS | Encounter Summary ---
Demographics + + + | Address | [address] | | | [place] [address] | + + + | Home Phone | | + + + | Preferred Language | Unknown | + + + | Marital Status | Single | + + + | Mandaen Affiliation | CHR | + + + | Race | White | + + + | Ethnic Group | Not or | + + + Author + + + | Author | [facility] | + + + | Organization | [facility] | + + + | Address | Unknown | + + + | Phone | Unavailable | + + + Support + + +---------+ + | Name | Relationship | Address | Phone | + + +---------+ + | Kaycee Ferraro | ECON | Unknown | | + + +---------+ + Care Team Providers + +------+ + | Care Accounts Adjustable Clerk Name | Role | Phone | + +------+ + PCP | Unavailable | + +------+ + Reason for Visit + + + | Reason | Comments | + + + | Postoperative visit | pin site infection | + + + Encounter Details +--------+---------+ + + + | Date | Type | Department | Care Team | Description | +--------+---------+ + + + | 10/17/ | Office | Orthopaedics | Argelia Gutierrez | Wound Infection | | 2007 | Visit | [facility] | [facility] L[facility] | (Primary Dx) | | | | for Health and | | | | | | Healing [address] | | | | | | [place] for | | | | | | Health and Healing, | | | | | | Building | | | | | | Floor [place], [place] | | | | | | [address] | | | | | | [phone] | | | +--------+---------+ + + + [...] of this encounter Progress Notes Argelia Gutierrez - 10/17/2007 8:44 AM PSTS; José Miguel Cerda is a 47 y.o. Male s/p left knee dislocation who was placed in an external fixator for his posterior lateral corner inju ry with plan for delayed ACL and PCL reconstruction by Dr. Esparza. He has been non-weightbea ring as directed and has remained in the dorsiflexion boot for peroneal nerve injury also as directed. He has complaints of pain at the pin sites with increased redness, swelling and d ischarge. Patient reports that his wounds have recently been cleansed with betadine and he w as placed on sulfa followed by penicillin when there was no resolution in infectious symptom s. 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 Left leg with Ex Fix i ntact but with approx 4" of surroundinging deep erythema and pus discharge at several of the pin sites. Moderate swelling throughout LLE. Tender to palpation over skin at pin sites. D orsiflexion boot in place on left foot. A: Pin site infection. P:Discontinue Pen VK. New Keflex Rx x 10 days. RTC if no improvement in symptoms or if they do not completely resolve by completion of antibiotic course. Twice daily wound cleansing with 1/2 strength hydrogen peroxide/sterile saline followed by 2x2 gauze dressings cut to fit over pin sites, followed by Kerlix wrap around leg at pin sit es. No betadine cleansing. Continue NWB status and dorsiflexion boot wear 4 hours per every 8 hours as previously dire cted. Return approximately 2 weeks, sooner if no resolution in pin site symptoms. documented in this e ncounter Plan of Treatment Not on filedocumented as of this encounter Visit Diagnoses + + | Diagnosis | + + | Wound infection - Primary Posttraumatic wound infection not elsewhere classified | + + documented in this encounter
--- OUTSIDE RECORDS SUMMARY | ~2020-04-08 | XMS | Encounter Summary ---
Demographics + + + | Address | [address] | | | [place] [address] | + + + | Home Phone [...] Author + + + | Author | [facility] | + + + | Organization | [facility] | + + + | Address | Unknown | + + + | Phone | Unavailable | + + + Support + + +---------+ + | Name | Relationship | Address | Phone | + + +---------+ + | Kaycee Ferraro | ECON | Unknown | | + + +---------+ + Care Team Providers + +------+ + | Care Grease Buffer Name | Role | Phone | + +------+ + | No Pcp Per Patient | PCP | Unavailable | + +------+ + Encounter Details +--------+ + + + + | Date | Type | Department | Care Team | Description | +--------+ + + + + | 11/27/ | High School Assistant Principal | Orthopaedics at | Artis Grajeda MD | Knee Dislocation | | 2008 | | [facility] [address] | [address] | (Primary Dx) | | | | [address] | [address] | | | | | Mailcode: [id number] | [place], [place] | | | | | [facility] | [address] | | | | | [place], [place] | [phone] | | | | | [address] | | | | | | [phone] | | | +--------+ + + + [...] | | + +---------+ + + | [facility] DEPARTMENT OF | | | | | RADIOLOGY | | | | + +---------+ + + documented in this encounter Visit Diagnoses + + | Diagnosis | + + | Knee dislocation - Primary Closed dislocation of knee, unspecified part | + + documented in this encounter"
--- OUTSIDE RECORDS SUMMARY | ~2020-04-08 | XMS | Encounter Summary ---
Demographics + + + | Address | [address] | | | [place] [address] | + + + | Home Phone | | + + + | Preferred Language | Unknown | + + + | Marital Status | Single | + + + | Worship Affiliation | CHR | + + + [...] Team Providers + +------+ + | Care Field Engineer Name | Role | Phone | [...] [address] | | | | | [place], [place] | [place], [place] | | | | | [address] | [address] | | | | | [phone] | [phone] | | | | | | | [...]
--- OUTSIDE RECORDS SUMMARY | ~2020-04-08 | XMS | Encounter Summary ---
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 smoker Acute cystitis without hematuria Infective discitis Osteomyelitis of lumbar spine ([facility]) Atrial fibrillation (HCC), 05/18 ASSESSMENT & PLAN S/P AVR for infective endocarditis - Cont ASA, Statin, BB - Continue to Encourage I.S and ambulation - Abx x 6weeks as per ID, treatment will be completed 06/21; Has PICC PAF 05/18, Recurrent Afib 05/21 and 05/22 - Continue oral Amio and Lopressor - Anticoagulation: INR 1.4, Coumadin 2mg today Volume overload - Continue Diuresis. - Cont to Monitor/replace lytes - Need accurate daily weights DM - A1C 5.4% - On Basal/Prandial insulin with good BS control Acute blood loss anemia stable - Cont Iron/Vit C Disposition: Case Management consulted, needs SNF however no facilities accepting Will transfer to hospitalist service Code Status: Full Code The patient has been seen, all new lab results and imaging reviewed, and the plan discussed with the attending provider Sima Moran PA-C 05/31/2018 onversio n Transaction, Provider Unknown - 05/31/2018 10:42 AM PDTFormatting of this note might be di fferent from the original. Progress Notes by Jose Carrillo RD at 05/31/18 1042 Author: Jose Carrillo RD Service: (none) Author Type: Registered Dietitian Filed: 05/31/18 104 Date of Service: 05/31/18 104 Status: Signed Brake Rider: Jose Carrillo RD (Registered Dietitian) 05/31/18 1037 Subjective Timepoint Follow up Pt c/o L risk follow up. Pt sleeping at time of visit in chair. Fluid / Beverage Intake Oral Fluids Amount Ad mandeep Food Intake Amount of Food Per charting pt is eating 100% of meals. Pt's breakfast tray was visble at t anamaria of visit, pt had eaten 100%. Had sausage, pancakes, cereal and milk, Type of Food / Meals Diabetic maintenance. Micronutrient Intake Vitamin Intake C Mineral / Element Intake Iron;Potassium;Chloride Nutrition-Focused Physical Findings Extremities, Muscles and Bones + 1 BLE edema noted. Anthropometrics Weight change Wt is up 3.4 kg since admit, has been trending down recently likely fluid rel ated, pt is on lasix. According to I/O's is negative 29.4 L of fluid. Biochemical data, medical tests, and procedures reviewed Biochemical data, medical tests, and procedures reviewed Labs reviewed. Recommendations Recommended energy needs Continue diet as ordered. Will continue to monitor intake for adeq uacy, further recs to follow per protocol. Nutritional Risk Nutritional risk Low Follow up date 06/07/[address] onver anna Transaction, Provider Unknown - 05/31/2018 7:27 AM PDT Nurse Progress Note by Alonso Pickett RN at 05/31/18726 Author: Alonso Pickett RN Service: (none) Author Type: Registered Nurse Filed: 05/31/18726 Date of Service: 05/31/18726 Status: Signed Brake Rider: Alonso Pickett RN (Registered Nurse) Chart check complete. onver anna Transaction, Provider Unknown - 05/30/2018 8:35 PM PDT Nurse Progress Note by Alonso Pickett RN at 05/30/182034 Author: Alonso Pickett RN Service: (none) Author Type: Registered Nurse Filed: 05/31/18120 Date of Service: 05/30/182034 Status: Signed Brake Rider: Alonso Pickett RN (Registered Nurse) RN made aware by LICENSED PHYSICAL THERAPY ASSISTANT that pt did not want to put on back brace or want help up to the restr oom. Pt educated on not pushing off of the bed and to follow sternal precautions. Pt non-com pliant with the sternal precautions as stated through RN handoff/report. Pt stated that he d oes not plan to get out of bed the rest of the night. onver anna Transaction, Provider Unknown - 05/30/2018 3:21 PM PDT Therapy Progress Note by AISHA Freed at 05/30/181520 Author: AISHA Freed Service: (none) Author Type: Senior Contracts Manager ant Filed: 05/30/18 9470 Date of Service: 05/30/181520 Status: Signed Brake Rider: AISHA Freed (Marinator) OCCUPATIONAL THERAPY TREATMENT NOTE OT Received On: 05/30/18 Reason for Treatment: Cardiac Requires OT Follow Up: Yes Assistance Required: 1 person Furnace Keeper Needed: No Family/Caregiver Present: No Recommendation: SNF Equipment Recommended: Other (comment) (Pt reported he has all the required AE for self-car e tasks) Requires OT Follow Up: Yes Recommendation Comments Plan Treatment Interventions: Other (comment) (per OT POC) Progress: Slow progress, decreased activity tolerance Requires OT Follow Up: Yes Focus for next session: continue ADL's; functional transfers; use of AE Follow up OT only? [] Yes [x] No Precautions Spinal Precautions: TLSO on when upright Cardiac Precautions: Sternal Other Precautions: Fall risk Summary Pt sitting up in recliner finishing a snack upon REGISTERED NURSE FETAL arrival. Todays focus was to reinforce sternal precautions and education/demonstration of self-care tasks while following precauti ons. Pt was provided a handout and reported he has been doing well and is just waiting to be DC'd after he completes his antibiotics. Safety Devices in Place: Yes Type of Devices: Call lite in place Barriers to d/c at this time include: [] Home environment [] Family support [] Equipment needs [] Cognitive deficits impacting functional independence [] Physical deficits impacting functional independence [] Self-care deficits impacting functional independence [] Other Pain The patient did not demonstrate any signs of symptoms of pain throughout OT session Education Completed: Education Topics: Role of OT; sternal precautions; handout on self-care tasks while foll owing precautions Completed with: [x] Patient [] Spouse [] Significant other [] Family [] C aregiver [] Other Completed by :[x] Verbal education [x] Demonstration [x] Handout [] Other: Response to Education: [x] Stated Understanding [] Reinforcement necessary [] Returned demonstration [] Demonstrated understanding [] No evidence of learning [] Refused Reviewed plan of care and goals set by OTR/L. onver anna Transaction, Provider Unknown - 05/30/2018 2:18 PM PDT Case Management by BILL Becerril at 05/30/18 9409 Author: BILL Becerril Service: (none) Author Type: Antenna Design Engineer Filed: 05/30/18 1425 Date of Service: 05/30/181417 Status: Signed Brake Rider: BILL Becerril (Antenna Design Engineer) 05/30/18 1400 Discharge Planning Evaluation Admitting Diagnosis s/p CABG BILL communicated with Hunter Sage, cashier or checker stock clerk, states he has made contact with IPR Man johanna, for consideration. Pending [facility] IPR at this time. DOMI KAT, Antenna Design Engineer [phone] cell Willie Montaño PA - 05/30/2018 9:06 AM PDTFormatting of this note might be different fro m the original. Progress Notes by Willie Ballard PA-C at 05/30/18905 Author: Willie Ballard PA-C Service: Cardiac, Thoracic, and Vascular Surgery Author Ty pe: Physician Herbarium Curator - Certified Filed: 05/30/18911 Date of Service: 05/30/18905 Status: Attested Brake Rider: Willie Ballard PA-C (Physician Herbarium Curator - Certified) Cosigner: Kin Vergara MD at 05/30/18 121 Attestation signed by Kin Vergara MD at 05/30/18 121 Patient was seen, examined, labs, x-rays, treatment plan reviewed. [facility] Service: Cardiothoracic Surgery Progress Note ROOM: [facility] Hospital Day: LOS: 26 days Post-Op Day: 14 Days Post-Op Surgery/Procedure: 05/16/2018 Aortic valve replacement with a #23 Magna valve. SUBJECTIVE Events Overnight: Maintaining SR, HD stable. Continues on RA Continues to ambulate with PT UOP: 3.4L/24hrs CTs removed 05/18 TPWs removed 05/20 +BM Has Midline OBJECTIVE Vital Signs: BP 119/77 (BP Location: Right upper arm) | Pulse 83 | Temp 97.5 F (36.4 C) (Oral) | Resp 16 | Ht 1.753 m (5' 9") | Wt 99.3 kg (218 lb 14.7 oz) | SpO2 98% | BMI 32.33 kg/m Current weight: Patient Vitals for the past 96 hrs: Weight 05/30/18 0645 99.3 kg (218 lb 14.7 oz) 05/30/18 0536 100 kg (220 lb 7.4 oz) 05/29/18 0500 100.1 kg (220 lb 10.9 oz) 05/28/18 0938 100.6 kg (221 lb 12.5 oz) 05/28/18 0550 110.9 kg (244 lb 7.8 oz) 05/27/18 0351 110.5 kg (243 lb 9.7 oz) Admission weight: Weight: 96.9 kg (213 lb 10 oz) Physical Exam: General: Alert, oriented, in no acute distress, resting in chair Heart: RRR No murmur Lungs: CTA b/l Dim bases. Abdomen: Soft, nondistended, nontender Extremities: Well perfused, mild LE edema Musculoskeletal: no deformities or significant abnormalities Neurological: No gross focal motor or sensory deficits Skin: No rash or lesions. Mid-sternal incision dressing is C/D/I. Chest tube removed inci anna C/D/I. Pacing wires removed EVH incisions C/D/I. DATA: Scheduled Medications amiodarone 200 mg Oral Daily ampicillin 2 g Intravenous Q4H ascorbic acid 500 mg Oral Daily aspirin 81 mg Oral Nightly atorvastatin 40 mg Oral Nightly cefTRIAXone 2 g Intravenous Q12H denture cleanser 1 tablet Does not apply Nightly DULoxetine 60 mg Oral Daily famotidine 20 mg Oral BID Or famotidine 20 mg Intravenous BID ferrous sulfate (65 FE) 65 mg of iron Oral BID WC furosemide 40 mg Intravenous BID-Diuretics gabapentin 300 mg Oral TID insulin detemir 4 Units Subcutaneous BID insulin lispro (human) 1-7 Units Subcutaneous Nightly insulin lispro (human) 2 Units Subcutaneous TID AC insulin lispro (human) 2-14 Units Subcutaneous TID AC magnesium hydroxide 30 mL Oral Daily metoprolol 25 mg Oral BID nicotine 1 patch Transdermal Daily nystatin Topical TID polyethylene glycol 17 g Oral BID potassium chloride 20 mEq Oral BID WC senna-docusate 1 tablet Oral BID tamsulosin 0.4 mg Oral after dinner Continuous Infusions PRN Medications acetaminophen OR acetaminophen, aluminum-magnesium hydroxide-simethicone, bisacodyl, de xtrose, dextrose, insulin regular 1 unit/mL, lactulose, magnesium sulfate OR magnesium s ulfate OR magnesium sulfate, melatonin, ondansetron, oxyCODONE OR oxyCODONE, polyeth ylene glycol, potassium OR potassium OR potassium OR potassium chloride OR p otassium chloride OR potassium chloride, saline lock IV - prn tolerating PO fluid AND* * sodium chloride, sodium chloride HOME MEDS: Prior to Admission medications Medication Sig Start Date End Date Taking? Authorizing Provider AMLODIPINE BESYLATE PO Take 5 mg by mouth daily. Yes Historical Provider gabapentin (NEURONTIN) 300 MG capsule Take 300 mg by mouth 3 (three) times daily. Yes His torical Provider hydrOXYzine (VISTARIL) 25 MG capsule Take 25 mg by mouth as needed for Itching. Yes Histo rical Provider insulin glargine (LANTUS) 100 UNIT/ML injection Inject into the skin nightly. Yes Histor ical Provider insulin lispro, human, (HUMALOG) 100 UNIT/ML injection Inject 10 Units into the skin 3 (thr ee) times daily before meals. Yes Historical Provider lisinopril-hydrochlorothiazide (ZESTORETIC) 20-12.5 MG per tablet Take 1 tablet by mouth da robi. Yes Historical Provider betamethasone dipropionate (DIPROLENE) 0.05 % cream Apply topically 2 (two) times daily. A pply to affected areas on the skin of left leg two times a day. Historical Provider permethrin (ELIMITE) 5 % cream Apply topically once a week. Apply from head to toe, leave on for 8 to 14 hours then rinse. May reapply in 7 days. Historical Provider LABS: Recent Labs Lab 05/30/1854405/29/1853205/28/18 0416 WBC 7.46 7.33 6.14 HGB 9.4* 9.3* 8.9* HCT 29.9* 29.1* 27.9* PLT 155 146* 151 Recent Labs Lab 05/30/1845 05/29/18 0533 05/28/18 0416 NA 136 134* 137 K 4.5 4.2 4.3 CL 100 98* 96* CO2 29 27 32 BUN 13 13 10 CREATININE 0.95 0.97 0.92 Phosphorus: Lab Results Component Value Date PHOS 3.8 05/16/2018 Invalid input(s): LABALBU Recent Labs Lab 05/30/1845 05/29/18 0533 05/28/18 0416 MG 2.3 2.2 2.2 No results for input(s): AMYLASE in the last 168 hours. No results for input(s): PHART, PO2ART, CAN0MBI, D2MLYUQS, BEART in the last 168 hours. Recent Labs Lab 05/30/18 0545 05/29/18 0533 05/28/18 0416 INR 1.6 2.5 2.0 No results for input(s): TSH, T3FREE, FREET4 in the last 168 hours. No results for input(s): CKTOTAL, TROPONINI, TROPONINT, CKMBINDEX in the last 168 hours. PROBLEM LIST Principal Problem: Infective endocarditis of aortic valve Active Problems: Type 2 diabetes mellitus without complication, with long-term current use of insulin ([facility]CC ) Hypoglycemia Suicide attempt by adequate means ([facility]) Benign essential hypertension Polycythemia Urinary retention Chronic bilateral thoracic back pain Current every day smoker Acute cystitis without hematuria Infective discitis Osteomyelitis of lumbar spine ([facility]) Atrial fibrillation ([facility]), 05/18 ASSESSMENT & PLAN S/P AVR for infective endocarditis - Cont ASA, Statin, BB - Continue to Encourage I.S and ambulation - Abx x 6weeks as per ID, treatment will be completed 06/21; Has PICC PAF 05/18, Recurrent Afib 05/21 and 05/22 - Continue oral Amio and Lopressor - Anticoagulation: INR 1.6, restart warfarin Volume overload - Continue Diuresis. - Cont to Monitor/replace lytes - Need accurate daily weights DM - A1C 5.4% - On Basal/Prandial insulin with good BS control Acute blood loss anemia stable - Cont Iron/Vit C Disposition: Case Management consulted, needs SNF however no facilities accepting Code Status: Full Code The patient has been seen, all new lab results and imaging reviewed, and the plan discussed with the attending provider Willie Ballard PA-C 05/30/2018 onversion Transact ion, Provider Unknown - 05/30/2018 6:46 AM PDTFormatting of this note might be different fr om the original. Nurse Progress Note by Anmol Hobbs RN at 05/30/18645 Author: Anmol Hobbs RN Service: (none) Author Type: Registered Nurse Filed: 05/30/18645 Date of Service: 05/30/1846 Status: Signed Brake Rider: Anmol Hobbs RN (Registered Nurse) 24 hour chart review complete. onver anna Transaction, Provider Unknown - 05/29/2018 2:55 PM PDT Therapy Progress Note by Haja Resendiz PT at 05/29/18 8586 Author: Haja Resendiz PT Service: (none) Author Type: Physical Therapist Filed: 05/29/18 7248 Date of Service: 05/29/18 5497 Status: Signed Brake Rider: Haja Resendiz PT (Physical Therapist) PHYSICAL THERAPY TREATMENT NOTE PT Received On: 05/29/18 Reason for Treatment: Cardiac Requires PT Follow Up: Yes Follow up PT Only?: No Assistance Required: 1 person Furnace Keeper Needed: No Recommendations: SNF PT Ready for Discharge: Yes Plan Treatment/Interventions: Continue per Primary PT POC Progress: Progressing toward goals Summary Comments: Patient in the recliner upon PT arrival; eager to participate. Requested pants fo r lower body dressing. Requires for sternal precautions nearly 100% of the time and often needs repeated instruction for adherence. He is cooperative. Needs full setup assist for do nning pants and assistance with pulling up/steadying assist for him to tie drawstring. Pt st ill needs min A for transfers from recliner and mod A from . During gait, pt is making pro ronnie but activity tolerance reduced. pt citing that he feels 'shaky'. RN notified and blood sugars assessed, with pt at 112. pt unable to continue gait training safely due to feeling unsteady, which was evident in standing. New cushion obtained for his recliner and adhered w ith Dysom to avoid slipping with scooting. Pt in the recliner after activity. Vitals in sitt ing after activity: HR 79, BP 147/87, SpO2 96% RA. Denies pain currently. Precautions Spinal Precautions: TLSO on when upright Cardiac Precautions: Sternal Other Precautions: fall risk Cognition Overall Cognitive Status: Within Functional Limits Orientation Level: Oriented FUNCTIONAL MOBILITY Bed Mobility Scooting : Minimal assist - Transfers Sit to/from Stand: Moderate assist (to arise OR lower), Verbal instruction Bed to/from Chair: Moderate assist (to arise OR lower), Verbal instruction Stand Pivot Transfers: Moderate assist (to arise OR lower), Verbal instruction Ambulation Maximal Ambulation Distance (feet): 100, 10 Total Ambulation Distance (feet): 110 Ambulation Assistance: Minimal assist Distance limited by?: Patient's ability Pattern: Decreased leighton, Right swing foot doesn't pass stance foot, Left swing foot does n't pass stance foot Assistive Device: Walker 4 wheeled Activity Tolerance: Patient limited by fatigue, Treatment limited secondary to medical comp lications Nurse Made Aware: RN present/aware Safety Devices in Place: (call light; needs met) Restraints Initially in Place: No The patient demonstrated no indication of pain during therapy session. Education Completed: Education Topics: [x] Rationale for PT [x] PT POC [x] DC planning [x] Precautions [] Exercises [] Bed mobility [x] Transfer training with hand placement [x] Gait training [] Stair training [x] Use of gait belt [] Other Completed with: [x] Patient [] Spouse [] Significant other [] Family [] C aregiver [] Other Completed by: [x] Verbal education [x] Demonstration [] Handout [] Other: Response to Education: [x] Stated Understanding [] Reinforcement necessary [x] Returned demonstration [] Demonstrated understanding [] No evidence of learning [] Refused Willie Montaño PA - 05/29/2018 10:30 AM PDTFormatting of this note might be different fro m the original. Progress Notes by Willie Ballard PA-C at 05/29/18 1030 Author: Willie Ballard PA-C Service: Cardiac, Thoracic, and Vascular Surgery Author Ty pe: Physician Herbarium Curator - Certified Filed: 05/29/18 1034 Date of Service: 05/29/18 1030 Status: Attested Brake Rider: Willie Ballard PA-C (Physician Herbarium Curator - Certified) Cosigner: Anthony betancur MD at 05/29/18 1339 Attestation signed by Anthony Ibrahim MD at 05/29/18 0304 I have reviewed the note below, personally reviewed the available laboratory and imaging st udies and examined the patient. I agree with the assessment and plan mentioned below. Electronically signed by: flores Ricardo [place], 05/29/2018 1:34 PM [facility] Service: Cardiothoracic Surgery Progress Note ROOM: [address] [place] [address] Hospital Day: LOS: 25 days Post-Op Day: 13 Days Post-Op Surgery/Procedure: 05/16/2018 Aortic valve replacement with a #23 Magna valve. SUBJECTIVE Events Overnight: Maintaining SR, HD stable. Continues on RA Continues to ambulate with PT UOP: 3L/24hrs CTs removed 05/18 TPWs removed 05/20 +BM Has Midline OBJECTIVE Vital Signs: BP 130/72 (BP Location: Right upper arm) | Pulse 73 | Temp 98.3 F (36.8 C) (Oral) | Resp 18 | Ht 1.753 m (5' 9") | Wt 100.1 kg (220 lb 10.9 oz) | SpO2 96% | BMI 32.59 kg/m Current weight: Patient Vitals for the past 96 hrs: Weight 05/29/18 0500 100.1 kg (220 lb 10.9 oz) 05/28/18 0938 100.6 kg (221 lb 12.5 oz) 05/28/18 0550 110.9 kg (244 lb 7.8 oz) 05/27/18 0351 110.5 kg (243 lb 9.7 oz) 05/26/18 0528 106.5 kg (234 lb 12.6 oz) Admission weight: Weight: 96.9 kg (213 lb 10 oz) Physical Exam: General: Alert, oriented, in no acute distress, resting in chair Heart: RRR No murmur Lungs: CTA b/l Dim bases. Abdomen: Soft, nondistended, nontender Extremities: Well perfused, mild LE edema Musculoskeletal: no deformities or significant abnormalities Neurological: No gross focal motor or sensory deficits Skin: No rash or lesions. Mid-sternal incision dressing is C/D/I. Chest tube removed inci anna C/D/I. Pacing wires removed EVH incisions C/D/I. DATA: Scheduled Medications amiodarone 200 mg Oral Daily ampicillin 2 g Intravenous Q4H ascorbic acid 500 mg Oral Daily aspirin 81 mg Oral Nightly atorvastatin 40 mg Oral Nightly cefTRIAXone 2 g Intravenous Q12H DULoxetine 60 mg Oral Daily famotidine 20 mg Oral BID Or famotidine 20 mg Intravenous BID ferrous sulfate (65 FE) 65 mg of iron Oral BID WC furosemide 40 mg Intravenous BID-Diuretics gabapentin 300 mg Oral TID insulin detemir 4 Units Subcutaneous BID insulin lispro (human) 1-7 Units Subcutaneous Nightly insulin lispro (human) 2 Units Subcutaneous TID AC insulin lispro (human) 2-14 Units Subcutaneous TID AC magnesium citrate 296 mL Oral Once magnesium hydroxide 30 mL Oral Daily metoprolol 25 mg Oral BID nicotine 1 patch Transdermal Daily nystatin Topical TID polyethylene glycol 17 g Oral BID potassium chloride 20 mEq Oral BID senna-docusate 1 tablet Oral BID sodium chloride 10 mL Intravenous 2 times per day tamsulosin 0.4 mg Oral after dinner warfarin 2 mg Oral Daily Continuous Infusions dextrose 5 % and 0.45 % NaCl Stopped (05/18/18 1537) PRN Medications acetaminophen OR acetaminophen, aluminum-magnesium hydroxide-simethicone, bisacodyl, de xtrose, dextrose, insulin regular 1 unit/mL, lactulose, magnesium sulfate OR magnesium s ulfate OR magnesium sulfate, melatonin, ondansetron, oxyCODONE OR oxyCODONE, polyeth ylene glycol, potassium OR potassium OR potassium OR potassium chloride OR p otassium chloride OR potassium chloride, saline lock IV - prn tolerating PO fluid AND* * sodium chloride, sodium chloride HOME MEDS: Prior to Admission medications Medication Sig Start Date End Date Taking? Authorizing Provider AMLODIPINE BESYLATE PO Take 5 mg by mouth daily. Yes Historical Provider gabapentin (NEURONTIN) 300 MG capsule Take 300 mg by mouth 3 (three) times daily. Yes His torical Provider hydrOXYzine (VISTARIL) 25 MG capsule Take 25 mg by mouth as needed for Itching. Yes Histo rical Provider insulin glargine (LANTUS) 100 UNIT/ML injection Inject into the skin nightly. Yes Histor ical Provider insulin lispro, human, (HUMALOG) 100 UNIT/ML injection Inject 10 Units into the skin 3 (thr ee) times daily before meals. Yes Historical Provider lisinopril-hydrochlorothiazide (ZESTORETIC) 20-12.5 MG per tablet Take 1 tablet by mouth dov rosenbaum. Yes Historical Provider betamethasone dipropionate (DIPROLENE) 0.05 % cream Apply topically 2 (two) times daily. A pply to affected areas on the skin of left leg two times a day. Historical Provider permethrin (ELIMITE) 5 % cream Apply topically once a week. Apply from head to toe, leave on for 8 to 14 hours then rinse. May reapply in 7 days. Historical Provider LABS: Recent Labs Lab 05/29/1853205/28/1841505/27/18 0505 WBC 7.33 6.14 7.26 HGB 9.3* 8.9* 9.5* HCT 29.1* 27.9* 29.3* PLT 146* 151 171 Recent Labs Lab 05/29/1853205/28/1841505/27/18 2353 05/27/18 0505 05/23/18 0428 NA 134* 137 -- -- 133* < > 133* K 4.2 4.3 4.0 < > 4.0 < > 3.8 CL 98* 96* -- -- 92* < > 93* CO2 27 32 -- -- 33* < > 30 BUN 13 10 -- -- 11 < > 16 CREATININE 0.97 0.92 -- -- 0.92 < > 0.8 PROT -- -- -- -- -- -- 5.9* BILITOT -- -- -- -- -- -- 0.3 ALT -- -- -- -- -- -- 58 AST -- -- -- -- -- -- 46* < > = values in this interval not displayed. Phosphorus: Lab Results Component Value Date PHOS 3.8 05/16/2018 Invalid input(s): LABALBU Recent Labs Lab 05/29/1853205/28/1841505/27/18 0505 MG 2.2 2.2 2.2 No results for input(s): AMYLASE in the last 168 hours. No results for input(s): PHART, PO2ART, DUO2BMK, K7LCEUIN, BEART in the last 168 hours. Recent Labs Lab 05/29/1853205/28/1841505/27/18 0505 INR 2.5 2.0 1.8 No results for input(s): TSH, T3FREE, FREET4 in the last 168 hours. No results for input(s): CKTOTAL, TROPONINI, TROPONINT, CKMBINDEX in the last 168 hours. PROBLEM LIST Principal Problem: Infective endocarditis of aortic valve Active Problems: Type 2 diabetes mellitus without complication, with long-term current use of insulin (HCC ) Hypoglycemia Suicide attempt by adequate means ([facility]) Benign essential hypertension Polycythemia Urinary retention Chronic bilateral thoracic back pain Current every day smoker Acute cystitis without hematuria Infective discitis Osteomyelitis of lumbar spine (HCC) Atrial fibrillation (HCC), 05/18 ASSESSMENT & PLAN S/P AVR for infective endocarditis - Cont ASA, Statin, BB - Continue to Encourage I.S and ambulation - Abx x 6weeks as per ID; Has PICC PAF 05/18, Recurrent Afib 05/21 and 05/22 - Continue oral Amio and Lopressor - Anticoagulation: INR 2.5, Hold Warfarin today Volume overload - Continue Diuresis. - Cont to Monitor/replace lytes - Need accurate daily weights Urinary retention - Vizcaino reinserted 05/20 - Vizcaino removed 05/27, pt able to void after removal DM - A1C 5.4% - On Basal/Prandial insulin with good BS control Acute blood loss anemia stable - Cont Iron/Vit C Disposition: Case Management consulted, needs SNF however no facilities accepting Code Status: Full Code The patient has been seen, all new lab results and imaging reviewed, and the plan discussed with the attending provider Willie Ballard PA-C 05/29/2018 onversion Transact ion, Provider Unknown - 05/29/2018 5:42 AM PDTFormatting of this note might be different fr om the original. Nurse Progress Note by Scarlet Box RN at 05/29/18541 Author: Scarlet Box RN Service: (none) Author Type: Registered Nurse Filed: 05/29/1843 Date of Service: 05/29/18541 Status: Signed Brake Rider: Scarlet Box RN (Registered Nurse) Assumed care from BETTIE Vasquez at approx 0100. Uneventful hourly rounding. 12 hr chart check complete. Scarlet Box, RN 5:43 AM Javon Garrison, PT - 05/28/2018 4:16 PM PDTFormatting of this note might be different fro m the original. Therapy Progress Note by Javon Garcia PT at 05/28/18 1616 Author: Javon Garcia PT Service: (none) Author Type: Physical Therapist Filed: 05/28/18 2907 Date of Service: 05/28/181615 Status: Signed Brake Rider: Javon Garcia PT (Physical Therapist) PHYSICAL THERAPY TREATMENT NOTE PT Received On: 05/28/18 Reason for Treatment: Cardiac Requires PT Follow Up: Yes Follow up PT Only?: No Assistance Required: 1 person Recommendations: SNF Barriers to Discharge: Self-care Deficits Impacting Functional [facility], Physical Defic its Impacting Functional [facility] PT Ready for Discharge: Yes Plan Treatment/Interventions: Continue per Primary PT POC Progress: Progressing toward goals Summary Comments: Upon arrival pt sitting in recliner agreeable to PT HR 68, SpO2 99%, BP 119/67. P t demonstrates increased impulsivity and decreased safety awareness today, with disregarding of precautions. He holds a pillow on his chest with one hand and pushes from the other to a ttempt to improve his independence with standing. When remind of his precautions he reports "I did just that," he demonstrated this behavior today on multiple occasions. STS still req Mod A. Pt taken to family room to look out large windows and look at available books for chris galarza. Pt requires 3 seated rest breaks and 1 standing rest break for ambulation today. When he becomes winded he attempts to move faster and becomes somewhat reckless running into obje ct with his 4ww and disregarding sternal precautions when sitting. At end of session pt sitt ing in recliner HR 75, SpO2 98%, Jonathon 157/83. He will benefit from skilled physical therapy to focus on safe transfers with maintenance of sternal precautions. Precautions Spinal Precautions: TLSO on when upright Cardiac Precautions: Sternal Other Precautions: fall precautions Cognition Overall Cognitive Status: Within Functional Limits Orientation Level: Oriented FUNCTIONAL MOBILITY Transfers Sit to/from Stand: Moderate assist (to arise OR lower) Ambulation Maximal Ambulation Distance (feet): 80 Total Ambulation Distance (feet): 400 Ambulation Assistance: Minimal assist Distance limited by?: Patient's ability Pattern: Decreased leighton, Forward flexed THERAPEUTIC EXERCISE Activity Tolerance: Patient limited by fatigue Nurse Made Aware: Patsy Safety Devices in Place: (call light in reach) The patient reported pain rated at a 5/10 when he coughs. RN was notified (Patsy). Other measures provided to relieve pts pain included: none Education Completed: Education Topics: [x] Rationale for PT [] PT POC [] DC planning [x] Precautions [] Exercises [] Bed mobility [x] Transfer training with hand placement [] Gait training [] Stair training [x] Use of gait belt [] Other Completed with: [x] Patient [] Spouse [] Significant other [] Family [] C aregiver [] Other Completed by: [x] Verbal education [] Demonstration [] Handout [] Other: Response to Education: [] Stated Understanding [x] Reinforcement necessary [] Returned demonstration [] Demonstrated understanding [] No evidence of learning [] Refused uong Ballard PA - 05/28/2018 10:02 AM PDTFormatting of this note might be different from the o riginal. Progress Notes by Willie Ballard PA-C at 05/28/18 1002 Author: Willie Ballard PA-C Service: Cardiac, Thoracic, and Vascular Surgery Author Ty pe: Physician Herbarium Curator - Certified Filed: 05/28/18 1006 Date of Service: 05/28/18 1002 Status: Attested Addendum Brake Rider: Willie Ballard PA-C (Physician Herbarium Curator - Certified) Related Notes: Original Note by Willie Ballard PA-C (Physician Herbarium Curator - Certified) f iled at 05/28/18 1006 Cosigner: Anthony Ibraihm MD at 05/28/18 1214 Attestation signed by Anthony Ibrahim MD at 05/28/18 1214 I have reviewed the note below, personally reviewed the available laboratory and imaging st udies and examined the patient. I agree with the assessment and plan mentioned below. Electronically signed by: Anthony Ibrahim, 05/28/2018 12:14 PM [facility] Service: Cardiothoracic Surgery Progress Note ROOM: [address] [place] [address] Hospital Day: LOS: 24 days Post-Op Day: 12 Days Post-Op Surgery/Procedure: 05/16/2018 Aortic valve replacement with a #23 Magna valve. SUBJECTIVE Events Overnight: Maintaining SR, HD stable. Continues on RA Continues to ambulate with PT UOP: 4L/24hrs CTs removed 05/18 TPWs removed 05/20 +BM Has Midline OBJECTIVE Vital Signs: BP 119/56 (BP Location: Left leg) | Pulse 62 | Temp 97.8 F (36.6 C) (Oral) | Resp 19 | Ht 1.753 m (5' 9") | Wt 100.6 kg (221 lb 12.5 oz) | SpO2 96% | BMI 32.75 kg/m Current weight: Patient Vitals for the past 96 hrs: Weight 05/28/18 0938 100.6 kg (221 lb 12.5 oz) 05/28/18 0550 110.9 kg (244 lb 7.8 oz) 05/27/18 0351 110.5 kg (243 lb 9.7 oz) 05/26/18 0528 106.5 kg (234 lb 12.6 oz) 05/25/18 0508 106.9 kg (235 lb 10.8 oz) Admission weight: Weight: 96.9 kg (213 lb 10 oz) Physical Exam: General: Alert, oriented, in no acute distress, resting in chair Heart: RRR No murmur Lungs: CTA b/l Dim bases. Abdomen: Soft, nondistended, nontender Extremities: Well perfused, mild LE edema Musculoskeletal: no deformities or significant abnormalities Neurological: No gross focal motor or sensory deficits Skin: No rash or lesions. Mid-sternal incision dressing is C/D/I. Chest tube removed inci anna C/D/I. Pacing wires removed EVH incisions C/D/I. DATA: Scheduled Medications amiodarone 200 mg Oral Daily ampicillin 2 g Intravenous Q4H ascorbic acid 500 mg Oral Daily aspirin 81 mg Oral Nightly atorvastatin 40 mg Oral Nightly cefTRIAXone 2 g Intravenous Q12H DULoxetine 60 mg Oral Daily famotidine 20 mg Oral BID Or famotidine 20 mg Intravenous BID ferrous sulfate (65 FE) 65 mg of iron Oral BID WC furosemide 40 mg Intravenous BID-Diuretics gabapentin 300 mg Oral TID insulin detemir 4 Units Subcutaneous BID insulin lispro (human) 1-7 Units Subcutaneous Nightly insulin lispro (human) 2 Units Subcutaneous TID AC insulin lispro (human) 2-14 Units Subcutaneous TID AC magnesium citrate 296 mL Oral Once magnesium hydroxide 30 mL Oral Daily metoprolol 25 mg Oral BID nicotine 1 patch Transdermal Daily nystatin Topical TID polyethylene glycol 17 g Oral BID potassium chloride 20 mEq Oral BID senna-docusate 1 tablet Oral BID sodium chloride 10 mL Intravenous 2 times per day tamsulosin 0.4 mg Oral after dinner warfarin 2 mg Oral Daily Continuous Infusions dextrose 5 % and 0.45 % NaCl Stopped (05/18/18 7137) PRN Medications acetaminophen OR acetaminophen, aluminum-magnesium hydroxide-simethicone, bisacodyl, de xtrose, dextrose, insulin regular 1 unit/mL, lactulose, magnesium sulfate OR magnesium s ulfate OR magnesium sulfate, melatonin, ondansetron, oxyCODONE OR oxyCODONE, polyeth ylene glycol, potassium OR potassium OR potassium OR potassium chloride OR p otassium chloride OR potassium chloride, saline lock IV - prn tolerating PO fluid AND* * sodium chloride, sodium chloride HOME MEDS: Prior to Admission medications Medication Sig Start Date End Date Taking? Authorizing Provider AMLODIPINE BESYLATE PO Take 5 mg by mouth daily. Yes Historical Provider gabapentin (NEURONTIN) 300 MG capsule Take 300 mg by mouth 3 (three) times daily. Yes His torical Provider hydrOXYzine (VISTARIL) 25 MG capsule Take 25 mg by mouth as needed for Itching. Yes Histo rical Provider insulin glargine (LANTUS) 100 UNIT/ML injection Inject into the skin nightly. Yes Histor ical Provider insulin lispro, human, (HUMALOG) 100 UNIT/ML injection Inject 10 Units into the skin 3 (thr ee) times daily before meals. Yes Historical Provider lisinopril-hydrochlorothiazide (ZESTORETIC) 20-12.5 MG per tablet Take 1 tablet by mouth da robi. Yes Historical Provider betamethasone dipropionate (DIPROLENE) 0.05 % cream Apply topically 2 (two) times daily. A pply to affected areas on the skin of left leg two times a day. Historical Provider permethrin (ELIMITE) 5 % cream Apply topically once a week. Apply from head to toe, leave on for 8 to 14 hours then rinse. May reapply in 7 days. Historical Provider LABS: Recent Labs Lab 05/28/1841505/27/1850405/26/1831 WBC 6.14 7.26 5.76 HGB 8.9* 9.5* 8.6* HCT 27.9* 29.3* 27.6* PLT 151 171 171 Recent Labs Lab 05/28/1841505/27/18 2353 05/27/18 1749 05/27/1850405/26/18 0531 05/23/18 0428 NA 137 -- -- -- 133* -- 134* < > 133* K 4.3 4.0 4.2 < > 4.0 < > 4.0 < > 3.8 CL 96* -- -- -- 92* -- 94* < > 93* CO2 32 -- -- -- 33* -- 34* < > 30 BUN 10 -- -- -- 11 -- 11 < > 16 CREATININE 0.92 -- -- -- 0.92 -- 0.85 < > 0.8 PROT -- -- -- -- -- -- -- -- 5.9* BILITOT -- -- -- -- -- -- -- -- 0.3 ALT -- -- -- -- -- -- -- -- 58 AST -- -- -- -- -- -- -- -- 46* < > = values in this interval not displayed. Phosphorus: Lab Results Component Value Date PHOS 3.8 05/16/2018 Invalid input(s): LABALBU Recent Labs Lab 05/28/1841505/27/1850405/26/18 0531 MG 2.2 2.2 2.2 No results for input(s): AMYLASE in the last 168 hours. No results for input(s): PHART, PO2ART, WBE8NTB, K1NOTEGK, BEART in the last 168 hours. Recent Labs Lab 05/28/18 0416 05/27/18 0505 05/26/18 0531 INR 2.0 1.8 1.9 No results for input(s): TSH, T3FREE, FREET4 in the last 168 hours. No results for input(s): CKTOTAL, TROPONINI, TROPONINT, CKMBINDEX in the last 168 hours. PROBLEM LIST Principal Problem: Infective endocarditis of aortic valve Active Problems: Type 2 diabetes mellitus without complication, with long-term current use of insulin ([facility] ) Hypoglycemia Suicide attempt by adequate means ([facility]) Benign essential hypertension Polycythemia Urinary retention Chronic bilateral thoracic back pain Current every day smoker Acute cystitis without hematuria Infective discitis Osteomyelitis of lumbar spine ([facility]) Atrial fibrillation ([facility]), 05/18 ASSESSMENT & PLAN S/P AVR for infective endocarditis - Cont ASA, Statin, BB - Continue to Encourage I.S and ambulation - Abx x 6weeks as per ID; Has PICC PAF 05/18, Recurrent Afib 05/21 and 05/22 - Continue oral Amio and Lopressor - Anticoagulation: Continue Warfarin, daily INRs Volume overload - Continue Diuresis. - Cont to Monitor/replace lytes - Need accurate daily weights Urinary retention - Vizcaino reinserted 05/20 - Vizcaino removed 05/27, pt able to void after removal DM - A1C 5.4% - On Basal/Prandial insulin with good BS control Acute blood loss anemia stable - Cont Iron/Vit C Disposition: Case Management consulted, needs SNF however no facilities accepting Code Status: Full Code The patient has been seen, all new lab results and imaging reviewed, and the plan discussed with the attending provider Willie Ballard PA-C 05/28/2018 onversion Transac tion, Provider Unknown - 05/28/2018 6:49 AM PDTFormatting of this note might be different f rom the original. Nurse Progress Note by Scarlet Castrejon RN at 05/28/18648 Author: Scarlet Castrejon RN Service: (none) Author Type: Registered Nurse Filed: 05/28/1850 Date of Service: 05/28/18648 Status: Signed Brake Rider: Scarlet Castrejon RN (Registered Nurse) VSS. No acute events overnight. Patient voiding quantity sufficient. Patient up to chair fo r breakfast. Chart check complete. Scarlet Castrejon RN onver anna Transaction, Provider Unknown - 05/27/2018 6:26 PM PDT Nurse Progress Note by Sallie Mejia RN at 05/27/181825 Author: Sallie Mejia RN Service: (none) Author Type: Registered Nurse Filed: 05/27/181826 Date of Service: 05/27/181825 Status: Signed Brake Rider: Sallie Mejia RN (Registered Nurse) End of chart audit complete. No acute changes during shift. Sallie Perry RN adJavon bean PT - 05/27/2018 4:38 PM PDTFormatting of this note might be different fro m the original. Therapy Progress Note by Javon Garcia PT at 05/27/18 1638 Author: Javon Garcia PT Service: (none) Author Type: Physical Therapist Filed: 05/27/18 163 Date of Service: 05/27/18 163 Status: Signed Brake Rider: Javon Garcia PT (Physical Therapist) 05/27/18 1638 PT Last Visit PT Received On 05/27/18 Reason for Treatment Cardiac Requires PT Follow Up Yes Follow up PT Only? No Assistance Required 1 person Precautions Spinal Precautions TLSO on when upright Cardiac Precautions Sternal Other Precautions fall precautions Other Comments Comments Upon arrival pt supine in bed, reporting he just got back to bed, and had walked w [facility] nursing just a little bit ago. He reports being too tired to walk now, but commits to wa lking later tonight with nursing staff. onversion Tr ansaction, Provider Unknown - 05/27/2018 12:20 PM PDTFormatting of this note might be differ ent from the original. Case Management by Catherine Graves RN at 05/27/18 1220 Author: Catherine Graves RN Service: (none) Author Type: Registered Nurse Filed: 05/27/18 1227 Date of Service: 05/27/18 1220 Status: Signed Brake Rider: Catherine Graves RN (Registered Nurse) Per previous CM notes from 05/25: "[facility] p/c with Tam Almanzarkelley, [place] [facility] [employer] Margarine Maker ([phone] ) states there are no existing [facility] care facilities and recommended working with [place] [facility] office in [place] for increased help at home or placem ent in a care facility. [facility] [facility]OSS [facility] communicated with [facility] Department regarding consideration for short IPR stay before disc harge from hospital, IV Abx is set to end on Jun 21. Pt resides in a [facility] in [facility] on with a room mate. Unable to send home on outpatient infusion due to IV Abx have to be mix ed every 4 hours. [facility] staff has had no issues with behaviors while in hospital. DCP: Pending Placement - requesting special consideration for admission to [facility] IPR. " Currently IPR consult pending Will continue to follow Tata onver anna Gay, Provider Unknown - 05/27/2018 11:05 AM PDT Therapy Progress Note by IRENE Rico at 05/27/18 1105 Author: IRENE Rico Service: (none) Author Type: Occupational Therapist Filed: 05/27/18 1317 Date of Service: 05/27/18 1105 Status: Signed Brake Rider: IRENE Rico (Occupational Therapist) OCCUPATIONAL THERAPY TREATMENT NOTE OT Received On: 05/27/18 Reason for Treatment: Cardiac Requires OT Follow Up: Yes OT Eval/Reassessment Date: 05/27/18 (Reassessment) Assistance Required: 1 person Furnace Keeper Needed: No Family/Caregiver Present: No Recommendation: SNF Equipment Recommended: Tub transfer bench, Toilet aid, Elastic shoe laces, Sock aid, Sponge long handled Requires OT Follow Up: Yes OT Ready for Discharge: Yes Plan Treatment Interventions: (Per OT POC) Progress: Slow progress, decreased activity tolerance, Slow progress, cognitive deficits OT Frequency: 2-4 x/wk Care Duration (Days): 10 Days Requires OT Follow Up: Yes Focus for next session: walker technique, transfers, ADLs, precautions Follow up OT only? [] Yes [x] No Precautions Spinal Precautions: TLSO on when upright Cardiac Precautions: Sternal Other Precautions: Fall precautions Summary Pt finishing lunch, upon OT arrival. Pt completed requested ADL tasks, and continues to req uire VCs to reinforce precaution. Pt continues to benefit from further education and practic e in ADLs, walker technique. ADL/IADL Feeding Feeding Level of Assistance: Independent Feeding Where Assessed: (Recliner) Feeding Comments: Pt sitting in recliner, finishing his lunch. Grooming Grooming Level of Assistance: Setup Grooming Where Assessed: Other (Comment) (recliner-preference) Grooming Comments: pt aware of benefits to completion of tasks while standing. Pt stated un derstanding, but reported he wanted to sit to complete this date. UE Dressing UE Dressing Comments: Pt continues to require assistance for donning TLSO-pt was not wearin g, upon OT arrival, however agreeable to donning. LE Dressing LE Dressing: Yes Pants Level of Assistance: (awaiting a shower; did not want pants on) Adult Briefs Level of Assistance: Moderate assistance, Maximum verbal cues (multiple VCs to bring both hands to one side) LE Dressing Comments: Pt continues to require multiple cueing to reinforce precautions duri ng performance. Pt states 'I know", but continues to require guidance of hands. Toileting Toileting Level of Assistance: Moderate assistance Where Assessed: Toilet, Bedside commode (BSC over toilet due to height of toilet) Toileting Comments: Pt unsucessful at BM, however wanted to attempt. Pt was able to use uri nal after setup. Pt voiding before urinal placed, requiring assistance for cleanup on floor Toilet Transfers Toilet Transfer From: Rolling walker Toilet Transfer Type: To and from Toilet Transfer to: Standard toilet (BSC over standard toilet) Toilet Transfer Technique: Ambulating Toilet Transfers: Moderate assistance, Verbal cues Toilet Transfers Comments: Pt locked/unlocked brakes appropriately on the 4WW. Pt requiring moderate assist sit to stand BSC over toilet. Safety Devices in Place: Yes Type of Devices: Call lite in place (seated in recliner) Barriers to d/c at this time include: [] Home environment [x] Family support [x] Equipment needs [x] Cognitive deficits impacting functional independence [x] Physical deficits impacting functional independence [x] Self-care deficits impacting functional independence [] Other Pain The patient did not demonstrate any signs of symptoms of pain throughout OT session Education Completed: Education Topics: ADLs, reinforce precautions Completed with: [x] Patient [] Spouse [] Significant other [] Family [] C aregiver [] Other Completed by :[x] Verbal education [x] Demonstration [] Handout [] Other: Response to Education: [x] Stated Understanding [x] Reinforcement necessary [x] Returned demonstration [x] Demonstrated understanding [] No evidence of learning [] Refused Willie Montaño PA - 05/27/2018 9:11 AM PDTFormatting of this note might be different fro m the original. Progress Notes by Willie Ballard PA-C at 05/27/18 0911 Author: Willie Ballard PA-C Service: Cardiac, Thoracic, and Vascular Surgery Author Ty pe: Physician Herbarium Curator - Certified Filed: 05/27/18916 Date of Service: 05/27/18910 Status: Attested Brake Rider: Willie Ballard PA-C (Physician Herbarium Curator - Certified) Cosigner: Kin Vergara MD at 05/27/18 1104 Attestation signed by Kin Vergara MD at 05/27/18 1104 Patient was seen, examined, labs, x-rays, treatment plan reviewed. [facility] Service: Cardiothoracic Surgery Progress Note ROOM: 05/9105-1 Hospital Day: LOS: 23 days Post-Op Day: 11 Days Post-Op Surgery/Procedure: 05/16/2018 Aortic valve replacement with a #23 Magna valve. SUBJECTIVE Events Overnight: Maintaining SR, HD stable. Continues on RA Continues to ambulate with PT UOP: 7L/24hrs CTs removed 05/18 TPWs removed 05/20 +BM Has Midline Wts 108kg (preop 96.9kg) - lost another 3kg/24hrs OBJECTIVE Vital Signs: BP 130/65 | Pulse 70 | Temp 97.7 F (36.5 C) (Oral) | Resp 19 | Ht 1.753 m (5' 9") | Wt 110.5 kg (243 lb 9.7 oz) | SpO2 95% | BMI 35.97 kg/m Current weight: Patient Vitals for the past 96 hrs: Weight 05/27/18 0351 110.5 kg (243 lb 9.7 oz) 05/26/18 0528 106.5 kg (234 lb 12.6 oz) 05/25/18 0508 106.9 kg (235 lb 10.8 oz) 05/24/18 0509 108.1 kg (238 lb 5.1 oz) Admission weight: Weight: 96.9 kg (213 lb 10 oz) Physical Exam: General: Alert, oriented, in no acute distress, resting in chair Heart: RRR No murmur Lungs: CTA b/l Dim bases. Abdomen: Soft, nondistended, nontender Extremities: Well perfused, mild LE edema Musculoskeletal: no deformities or significant abnormalities Neurological: No gross focal motor or sensory deficits Skin: No rash or lesions. Mid-sternal incision dressing is C/D/I. Chest tube removed inci anna C/D/I. Pacing wires removed EVH incisions C/D/I. DATA: Scheduled Medications amiodarone 200 mg Oral Daily ampicillin 2 g Intravenous Q4H ascorbic acid 500 mg Oral Daily aspirin 81 mg Oral Nightly atorvastatin 40 mg Oral Nightly cefTRIAXone 2 g Intravenous Q12H DULoxetine 60 mg Oral Daily famotidine 20 mg Oral BID Or famotidine 20 mg Intravenous BID ferrous sulfate (65 FE) 65 mg of iron Oral BID WC gabapentin 300 mg Oral TID insulin detemir 4 Units Subcutaneous BID insulin lispro (human) 1-7 Units Subcutaneous Nightly insulin lispro (human) 2 Units Subcutaneous TID AC insulin lispro (human) 2-14 Units Subcutaneous TID AC magnesium citrate 296 mL Oral Once magnesium hydroxide 30 mL Oral Daily metoprolol 25 mg Oral BID nicotine 1 patch Transdermal Daily nystatin Topical TID polyethylene glycol 17 g Oral BID potassium chloride 20 mEq Oral TID senna-docusate 1 tablet Oral BID sodium chloride 10 mL Intravenous 2 times per day tamsulosin 0.4 mg Oral after dinner warfarin 2 mg Oral Daily Continuous Infusions dextrose 5 % and 0.45 % NaCl Stopped (05/18/18 4547) furosemide (LASIX) infusion 5 mg/hr (05/27/18 0227) PRN Medications acetaminophen OR acetaminophen, aluminum-magnesium hydroxide-simethicone, bisacodyl, de xtrose, dextrose, insulin regular 1 unit/mL, lactulose, magnesium sulfate OR magnesium s ulfate OR magnesium sulfate, melatonin, ondansetron, oxyCODONE OR oxyCODONE, polyeth ylene glycol, potassium OR potassium OR potassium OR potassium chloride OR p otassium chloride OR potassium chloride, saline lock IV - prn tolerating PO fluid AND* * sodium chloride, sodium chloride HOME MEDS: Prior to Admission medications Medication Sig Start Date End Date Taking? Authorizing Provider AMLODIPINE BESYLATE PO Take 5 mg by mouth daily. Yes Historical Provider gabapentin (NEURONTIN) 300 MG capsule Take 300 mg by mouth 3 (three) times daily. Yes His torical Provider hydrOXYzine (VISTARIL) 25 MG capsule Take 25 mg by mouth as needed for Itching. Yes Histo rical Provider insulin glargine (LANTUS) 100 UNIT/ML injection Inject into the skin nightly. Yes Histor ical Provider insulin lispro, human, (HUMALOG) 100 UNIT/ML injection Inject 10 Units into the skin 3 (thr ee) times daily before meals. Yes Historical Provider lisinopril-hydrochlorothiazide (ZESTORETIC) 20-12.5 MG per tablet Take 1 tablet by mouth da robi. Yes Historical Provider betamethasone dipropionate (DIPROLENE) 0.05 % cream Apply topically 2 (two) times daily. A pply to affected areas on the skin of left leg two times a day. Historical Provider permethrin (ELIMITE) 5 % cream Apply topically once a week. Apply from head to toe, leave on for 8 to 14 hours then rinse. May reapply in 7 days. Historical Provider LABS: Recent Labs Lab 05/27/18 0505 05/26/18 0531 05/25/18 0522 WBC 7.26 5.76 6.79 HGB 9.5* 8.6* 8.8* HCT 29.3* 27.6* 28.1* PLT 171 171 201 Recent Labs Lab 05/27/18 0505 05/26/18 2354 05/26/18 0531 05/25/18 0522 05/23/18 0428 NA 133* -- 134* -- 134* < > 133* K 4.0 4.1 4.0 < > 4.2 < > 3.8 CL 92* -- 94* -- 93* < > 93* CO2 33* -- 34* -- 34* < > 30 BUN 11 -- 11 -- 11 < > 16 CREATININE 0.92 -- 0.85 -- 0.78 < > 0.8 PROT -- -- -- -- -- -- 5.9* BILITOT -- -- -- -- -- -- 0.3 ALT -- -- -- -- -- -- 58 AST -- -- -- -- -- -- 46* < > = values in this interval not displayed. Phosphorus: Lab Results Component Value Date PHOS 3.8 05/16/2018 Invalid input(s): LABALBU Recent Labs Lab 05/27/18 0505 05/26/18 0531 05/25/18 0522 MG 2.2 2.2 2.1 No results for input(s): AMYLASE in the last 168 hours. No results for input(s): PHART, PO2ART, QMB1XPO, X6MRWTCW, BEART in the last 168 hours. Recent Labs Lab 05/27/18 0505 05/26/18 0531 05/25/18 0522 INR 1.8 1.9 2.4 No results for input(s): TSH, T3FREE, FREET4 in the last 168 hours. No results for input(s): CKTOTAL, TROPONINI, TROPONINT, CKMBINDEX in the last 168 hours. PROBLEM LIST Principal Problem: Infective endocarditis of aortic valve Active Problems: Type 2 diabetes mellitus without complication, with long-term current use of insulin ([facility] ) Hypoglycemia Suicide attempt by adequate means ([facility]) Benign essential hypertension Polycythemia Urinary retention Chronic bilateral thoracic back pain Current every day smoker Acute cystitis without hematuria Infective discitis Osteomyelitis of lumbar spine ([facility]) Atrial fibrillation ([facility]), 05/18 ASSESSMENT & PLAN S/P AVR for infective endocarditis - Cont ASA, Statin, BB - Continue to Encourage I.S and ambulation; Now on RA - Abx x 6weeks as per ID; Has PICC PAF 05/18, Recurrent Afib 05/21 and 05/22 - Continue oral Amio and Lopressor - Anticoagulation: Continue Warfarin, daily INRs Volume overload - Stop lasix gtt, start BIDD IV lasix - Cont to Monitor/replace lytes HypoNatremia improving - Continue fluid restriction and diuresis Urinary retention - Vizcaino reinserted 05/20 - Cont Flomax - Voiding trial today Chronic Low back pain - MRI showing discitis/osteomyelitis as per neuro surgery - Ambulating well with PT - Has new larger LSO brace - may need stabilization at some point in future DM - A1C 5.4% - On Basal/Prandial insulin with good BS control Acute blood loss anemia stable - Cont Iron/Vit C Disposition: Case Management working on discharge plan, possible IPR Code Status: Full Code The patient has been seen, all new lab results and imaging reviewed, and the plan discussed with the attending provider, JACK Pope-C 05/27/2018 adAashish domingo PT - 05/27/2018 7:58 AM PDTFormatting of this note might be different from the saray fair Therapy Progress Note by Javon Garcia PT at 05/27/18 0758 Author: Javon Garcia, DEQUAN Service: (none) Author Type: Physical Therapist Filed: 05/27/18 0845 Date of Service: 05/27/18757 Status: Signed Brake Rider: Javon Garcia PT (Physical Therapist) PHYSICAL THERAPY TREATMENT NOTE PT Received On: 05/27/18 Reason for Treatment: Cardiac Requires PT Follow Up: Yes Follow up PT Only?: No Assistance Required: 1 person Recommendations: SNF PT Ready for Discharge: Yes Plan Treatment/Interventions: Continue per Primary PT POC Summary Comments: Pt in recliner, agreeable to PT SpO2 94%, 72 HR, 116/63. Pt prefers to direct car e. Pt initially SBA for STS transfer, ambulating ~100' prior to fatigue and req prolonged se ated rest break, pt edu on ambulating slower/steadier as apposed to going so quickly. He att empts to push through UE to stand and responds well to verbal cues to use pillow, req mod A this STS. 2nd bout of ambulation pt reports increasing pain in chest vitals stable HR 94, Sp O2 99%, pt takes standing rest break for 1 min to recover. At end of session pt sitting in r ecliner BP 130/65, HR 72, nursing in room, needs in reach. Precautions Spinal Precautions: TLSO on when upright Cardiac Precautions: Sternal Other Precautions: Fall risk Cognition Orientation Level: Oriented FUNCTIONAL MOBILITY Transfers Sit to/from Stand: Moderate assist (to arise OR lower) Ambulation Maximal Ambulation Distance (feet): 130 Total Ambulation Distance (feet): 280 Ambulation Assistance: Minimal assist, Moderate assist Distance limited by?: Patient's ability Pattern: Forward flexed Assistive Device: Walker 4 wheeled THERAPEUTIC EXERCISE Activity Tolerance: Patient limited by fatigue Nurse Made Aware: Sallie Safety Devices in Place: (call light in reach) The patient reported pain rated at a 7/10. RN was notified (Sallie). Other measures provided to relieve pts pain included: Rest Education Completed: Education Topics: [x] Rationale for PT [] PT POC [] DC planning [] Precautions [] Exercises [] Bed mobility [x] Transfer training with hand placement [x] Gait training [] Stair training [x] Use of gait belt [] Other Completed with: [x] Patient [] Spouse [] Significant other [] Family [] C aregiver [] Other Completed by: [x] Verbal education [] Demonstration [] Handout [] Other: Response to Education: [] Stated Understanding [] Reinforcement necessary [] Returned demonstration [x] Demonstrated understanding [] No evidence of learning [] Refused onversion Tr ansaction, Provider Unknown - 05/27/2018 6:00 AM PDTFormatting of this note might be differ ent from the original. Nurse Progress Note by Stephanie Lutz RN at 05/27/18599 Author: Stephanie Lutz RN Service: (none) Author Type: Registered Nurse Filed: 05/27/18604 Date of Service: 05/27/18599 Status: Signed Brake Rider: Stephanie Lutz RN (Registered Nurse) Urine output 3950. Lasix drip infusing at 5 ml/hr. Pain meds given x 2 PRN pain. Pt on RA . VS stable. Otherwise hourly rounding uneventful End of shift chart check complete Kvng Knowles PT - 05/26/2018 3:00 PM PDTFormatting of this note might be different from the o riginal. Therapy Progress Note by Kvng Pacheco PT at 05/26/18 1500 Author: Kvng Pacheco PT Service: (none) Author Type: Physical Therapist Filed: 05/26/18 1802 Date of Service: 05/26/18 1500 Status: Signed Brake Rider: Kvng Pacheco PT (Physical Therapist) 05/26/18 1500 PT Last Visit PT Received On 05/26/18 Requires PT Follow Up Unavailable Other Comments Comments Attempted x3: pt with OT x1, declines x1 d/t lunch, and up with LICENSED PHYSICAL THERAPY ASSISTANT x1. Will f/u t omorrow. onversion Transacti on, Provider Unknown - 05/26/2018 9:50 AM PDTFormatting of this note might be different fro m the original. Therapy Progress Note by AISHA Choi at 05/26/18 0950 Author: AISHA Choi Service: (none) Author Type: Occupational Therapy rAturo reich Filed: 05/26/18 1052 Date of Service: 05/26/18 0950 Status: Signed Brake Rider: AISHA Choi (Marinator) OCCUPATIONAL THERAPY TREATMENT NOTE OT Received On: 05/26/18 Reason for Treatment: Cardiac Requires OT Follow Up: Yes Assistance Required: 1 person Furnace Keeper Needed: No Family/Caregiver Present: No Requires OT Follow Up: Yes Recommendation Comments Plan Requires OT Follow Up: Yes Focus for next session: Cognitive reintegration, AE training Follow up OT only? [] Yes [x] No Precautions Spinal Precautions: Lumbar, TLSO on when upright Cardiac Precautions: Sternal Other Precautions: fall risk Summary pt seated in recliner chair upon SRIRAM arrival. Agreeable to participate in OT at this time. Emphasis on addressing self care sternal precautions. pt requesting to ambulate within hallw ay and transition to 7th floor terrace via w/c. BP prior to activity 131/69 HR 68. Noted pt ambulate to maintain precautions during therapy session but still demosntrates some impulsiv ity while completing functional tasks. Mod cueing throughout entirety of session to maintain precautions. While on 7th floor terrace therapist discussing importance of maintaining prec autions and providing visual demosntration of proper tech during particular movements. Initi al STS pt requiring mod A, After completion of first ambulation and transition from STS from w/c level pt requiring additional assist with second person present for lifting assist d/t lower surface. During ambulation pt requiring SBA/CGA for safety, does demosntrate inc press ure through UE when holding onto handles of 4ww. No noted LOB during ambulation. Pt did unde rstanding of difficulty with maintaining precautions d/t UE habits and understands that duri ng therapy session from therapist provding constant cueing for maintaining of precautions. Teo padilla pt did demonstrate improvements with functional tasks but still requiring cueing for precautions related. At end of session pt returned to recliner chair talking with sister on phone. No needs indicated at this time. ADL/IADL LE Dressing LE Dressing: Yes LE Dressing Adaptive Equipment: Dairy Farm Worker, Shoe horn Pants Level of Assistance: Minimum assistance Sock Level of Assistance: Minimal verbal cues (removal of socks) Shoe Level of Assistance: Setup LE Dressing Where Assessed: Other (Comment) (recliner chair) LE Dressing Comments: pt requiring min A for assist with pulling pants over hips with provi ded cueing d/t safety concerns. pt was able to use bilingual counter sales retail to thread LE's and fasten with ou t assist. Min cueing for use of bilingual counter sales retail to doff socks, was able to maintain precautions whil e completing task. With setup pt was able to amy shoes with use of shoe horn while maintain ing precautions FUNCTIONAL MOBILITY Transfers Sit to/from Stand: Moderate assist (to arise OR lower), x 2 person (x2 on second STS from w /c level) Barriers to d/c at this time include: [] Home environment [] Family support [] Equipment needs [x] Cognitive deficits impacting functional independence [] Physical deficits impacting functional independence [x] Self-care deficits impacting functional independence [] Other Pain The patient did not demonstrate any signs of symptoms of pain throughout OT session Education Completed: Education Topics: ADL, self care-sternal precautions, AE training, functional mobility Completed with: [x] Patient [] Spouse [] Significant other [] Family [] C aregiver [] Other Completed by :[x] Verbal education [x] Demonstration [] Handout [] Other: Response to Education: [x] Stated Understanding [] Reinforcement necessary [x] Returned demonstration [] Demonstrated understanding [] No evidence of learning [] Refused Reviewed plan of care and goals set by OTR/L. Willie Montaño PA - 05/26/2018 8:40 AM PDTFormatting of this note might be different fro m the original. Progress Notes by Willie Ballard PA-C at 05/26/18 0840 Author: Willie Ballard PA-C Service: Cardiac, Thoracic, and Vascular Surgery Author Ty pe: Physician Herbarium Curator - Certified Filed: 05/26/1845 Date of Service: 05/26/18 0840 Status: Attested Brake Rider: Willie Ballard PA-C (Physician Herbarium Curator - Certified) Cosigner: Kin Vergara MD at 05/26/18 1146 Attestation signed by Kin Vergara MD at 05/26/18 1146 Patient was seen, examined, labs, x-rays, treatment plan reviewed. [facility] Service: Cardiothoracic Surgery Progress Note ROOM: [facility] Hospital Day: LOS: 22 days Post-Op Day: 10 Days Post-Op Surgery/Procedure: 05/16/2018 Aortic valve replacement with a #23 Magna valve. SUBJECTIVE Events Overnight: Maintaining SR, HD stable. Continues on RA Continues to ambulate with PT Continues on Lasix drip UOP: 4L/24hrs CTs removed 05/18 TPWs removed 05/20 +BM Has Midline Wts 108kg (preop 96.9kg) - lost another 3kg/24hrs OBJECTIVE Vital Signs: BP 129/67 (BP Location: Right upper arm) | Pulse 71 | Temp 97.5 F (36.4 C) (Oral) | Resp 16 | Ht 1.753 m (5' 9") | Wt 106.5 kg (234 lb 12.6 oz) | SpO2 96% | BMI 34.67 kg/m Current weight: Patient Vitals for the past 96 hrs: Weight 05/26/18 0528 106.5 kg (234 lb 12.6 oz) 05/25/18 0508 106.9 kg (235 lb 10.8 oz) 05/24/18 0509 108.1 kg (238 lb 5.1 oz) 05/23/18 0545 111 kg (244 lb 11.4 oz) Admission weight: Weight: 96.9 kg (213 lb 10 oz) Physical Exam: General: Alert, oriented, in no acute distress, resting in chair Heart: RRR No murmur Lungs: CTA b/l Dim bases. Abdomen: Soft, nondistended, nontender Extremities: Well perfused, mild LE edema Musculoskeletal: no deformities or significant abnormalities Neurological: No gross focal motor or sensory deficits Skin: No rash or lesions. Mid-sternal incision dressing is C/D/I. Chest tube removed inci anna C/D/I. Pacing wires removed EVH incisions C/D/I. DATA: Scheduled Medications amiodarone 200 mg Oral Daily ampicillin 2 g Intravenous Q4H ascorbic acid 500 mg Oral Daily aspirin 81 mg Oral Nightly atorvastatin 40 mg Oral Nightly cefTRIAXone 2 g Intravenous Q12H DULoxetine 60 mg Oral Daily famotidine 20 mg Oral BID Or famotidine 20 mg Intravenous BID ferrous sulfate (65 FE) 65 mg of iron Oral BID WC gabapentin 300 mg Oral TID insulin detemir 4 Units Subcutaneous BID insulin lispro (human) 1-7 Units Subcutaneous Nightly insulin lispro (human) 2 Units Subcutaneous TID AC insulin lispro (human) 2-14 Units Subcutaneous TID AC magnesium citrate 296 mL Oral Once magnesium hydroxide 30 mL Oral Daily metoprolol 25 mg Oral BID nicotine 1 patch Transdermal Daily nystatin Topical TID polyethylene glycol 17 g Oral BID potassium chloride 20 mEq Oral TID WC senna-docusate 1 tablet Oral BID sodium chloride 10 mL Intravenous 2 times per day tamsulosin 0.4 mg Oral after dinner Continuous Infusions dextrose 5 % and 0.45 % NaCl Stopped (05/18/18 4489) furosemide (LASIX) infusion 5 mg/hr (05/26/18 9305) PRN Medications acetaminophen OR acetaminophen, aluminum-magnesium hydroxide-simethicone, bisacodyl, de xtrose, dextrose, insulin regular 1 unit/mL, lactulose, magnesium sulfate OR magnesium s ulfate OR magnesium sulfate, melatonin, ondansetron, oxyCODONE OR oxyCODONE, polyeth ylene glycol, potassium OR potassium OR potassium OR potassium chloride OR p otassium chloride OR potassium chloride, saline lock IV - prn tolerating PO fluid AND* * sodium chloride, sodium chloride HOME MEDS: Prior to Admission medications Medication Sig Start Date End Date Taking? Authorizing Provider AMLODIPINE BESYLATE PO Take 5 mg by mouth daily. Yes Historical Provider gabapentin (NEURONTIN) 300 MG capsule Take 300 mg by mouth 3 (three) times daily. Yes His torical Provider hydrOXYzine (VISTARIL) 25 MG capsule Take 25 mg by mouth as needed for Itching. Yes Histo rical Provider insulin glargine (LANTUS) 100 UNIT/ML injection Inject into the skin nightly. Yes Histor ical Provider insulin lispro, human, (HUMALOG) 100 UNIT/ML injection Inject 10 Units into the skin 3 (thr ee) times daily before meals. Yes Historical Provider lisinopril-hydrochlorothiazide (ZESTORETIC) 20-12.5 MG per tablet Take 1 tablet by mouth da robi. Yes Historical Provider betamethasone dipropionate (DIPROLENE) 0.05 % cream Apply topically 2 (two) times daily. A pply to affected areas on the skin of left leg two times a day. Historical Provider permethrin (ELIMITE) 5 % cream Apply topically once a week. Apply from head to toe, leave on for 8 to 14 hours then rinse. May reapply in 7 days. Historical Provider LABS: Recent Labs Lab 05/26/18 0531 05/25/18 0505/24/18 0521 WBC 5.76 6.79 7.02 HGB 8.6* 8.8* 8.8* HCT 27.6* 28.1* 28.1* PLT 171 201 215 Recent Labs Lab 05/26/18 0531 05/26/18 0026 05/25/1852105/24/1852005/23/18 0428 NA 134* -- 134* -- 134* -- 133* K 4.0 4.2 4.2 < > 4.0 < > 3.8 CL 94* -- 93* -- 92* -- 93* CO2 34* -- 34* -- 35* -- 30 BUN 11 -- 11 -- 12 -- 16 CREATININE 0.85 -- 0.78 -- 0.75 -- 0.8 PROT -- -- -- -- -- -- 5.9* BILITOT -- -- -- -- -- -- 0.3 ALT -- -- -- -- -- -- 58 AST -- -- -- -- -- -- 46* < > = values in this interval not displayed. Phosphorus: Lab Results Component Value Date PHOS 3.8 05/16/2018 Invalid input(s): LABALBU Recent Labs Lab 05/26/1853005/25/1852105/24/18520 MG 2.2 2.1 1.9 No results for input(s): AMYLASE in the last 168 hours. No results for input(s): PHART, PO2ART, GKM0YYJ, B0SRTAPJ, BEART in the last 168 hours. Recent Labs Lab 05/26/1853005/25/1852105/24/18520 INR 1.9 2.4 2.3 No results for input(s): TSH, T3FREE, FREET4 in the last 168 hours. No results for input(s): CKTOTAL, TROPONINI, TROPONINT, CKMBINDEX in the last 168 hours. PROBLEM LIST Principal Problem: Infective endocarditis of aortic valve Active Problems: Type 2 diabetes mellitus without complication, with long-term current use of insulin ([facility] ) Hypoglycemia Suicide attempt by adequate means ([facility]) Benign essential hypertension Polycythemia Urinary retention Chronic bilateral thoracic back pain Current every day smoker Acute cystitis without hematuria Infective discitis Osteomyelitis of lumbar spine ([facility]) Atrial fibrillation ([facility]), 05/18 ASSESSMENT & PLAN S/P AVR for infective endocarditis - Cont ASA, Statin, BB - Continue to Encourage I.S and ambulation; Now on RA - Abx x 6weeks as per ID; Has PICC PAF 05/18, Recurrent Afib 05/21 and 05/22 - Continue oral Amio and Lopressor - Anticoagulation: INR 1.9 today; Restart coumadin low dose Volume overload - continue Lasix drip for goal UOP of 1-200cc/hr - Cont to Monitor/replace lytes HypoNatremia improving - Continue fluid restriction and diuresis Urinary retention - Vizcaino reinserted 05/20 - Cont Flomax - Voiding trial again once off Lasix drip Chronic Low back pain - MRI showing discitis/osteomyelitis as per neuro surgery - Ambulating well with PT - Has new larger LSO brace - may need stabilization at some point in future DM - A1C 5.4% - On Basal/Prandial insulin with good BS control Acute blood loss anemia stable - Cont Iron/Vit C Disposition: Case Management working on discharge plan, possible IPR Code Status: Full Code The patient has been seen, all new lab results and imaging reviewed, and the plan discussed with the attending provider, JACK Pope-C 05/26/2018 oVicenta carmona DO - 05/26/2018 7:21 AM PDT Progress Notes by Vicenta Callahan DO at 05/26/18720 Author: Vicenta Callahan DO Service: Infectious Disease Author Type: Physician Filed: 05/26/18 0854 Date of Service: 05/26/18720 Status: Signed Brake Rider: Vicenta Callahan DO (Physician) [facility] Service: Infectious Disease Progress Note Hospital Day: LOS: 22 days Post-Op Day: 4 Days Post-Op SUBJECTIVE Patient Summary: Re: Enterococcus faecalis bacteremia L4-5 diskitis/osteomyelitis Aortic valve endocarditis Pseudomonas bacteriuria Chart reviewed. Assumed ID care from Dr. Ruano on 05/14. 05/13: CT surgery consulted; Dr. Vergara plans tissue valve AVR for 05/16. 05/14: Cardiac cath; no lesions requiring intervention 05/16 - AVR with #23 Magna valve. AV vegetation > 1 cm. Transferred to ICU post-op 05/18 Went into A fib with RVR overnight. Amiodarone given. Converted to NSR with PACs. T ransferred out of ICU. Completed course of gentamicin for psudomonas UTI. 05/19 - PICC placed, on Ampicillin/ceftriaxone CC: Back pain Chart reviewed: No new events. Subjective The patient reports that his back pain is about the same, still mostly when he is first goi ng from laying down to standing up. He is comfortable when laying supine. He denies any feve rs or chills. Still awaiting placement. ROS No fever, chills sweats. No nausea, vomiting or diarrhea. No rashes or pruritis. No oral pa in. Scheduled Medications amiodarone 200 mg Oral Daily ampicillin 2 g Intravenous Q4H ascorbic acid 500 mg Oral Daily aspirin 81 mg Oral Nightly atorvastatin 40 mg Oral Nightly cefTRIAXone 2 g Intravenous Q12H DULoxetine 60 mg Oral Daily famotidine 20 mg Oral BID Or famotidine 20 mg Intravenous BID ferrous sulfate (65 FE) 65 mg of iron Oral BID WC gabapentin 300 mg Oral TID insulin detemir 4 Units Subcutaneous BID insulin lispro (human) 1-7 Units Subcutaneous Nightly insulin lispro (human) 2 Units Subcutaneous TID AC insulin lispro (human) 2-14 Units Subcutaneous TID AC magnesium citrate 296 mL Oral Once magnesium hydroxide 30 mL Oral Daily metoprolol 25 mg Oral BID nicotine 1 patch Transdermal Daily nystatin Topical TID polyethylene glycol 17 g Oral BID potassium chloride 20 mEq Oral TID WC senna-docusate 1 tablet Oral BID sodium chloride 10 mL Intravenous 2 times per day tamsulosin 0.4 mg Oral after dinner Continuous Infusions dextrose 5 % and 0.45 % NaCl Stopped (05/18/18 1537) furosemide (LASIX) infusion 5 mg/hr (05/24/18 1729) PRN Medications acetaminophen OR acetaminophen, aluminum-magnesium hydroxide-simethicone, bisacodyl, de xtrose, dextrose, insulin regular 1 unit/mL, lactulose, magnesium sulfate OR magnesium s ulfate OR magnesium sulfate, melatonin, ondansetron, oxyCODONE OR oxyCODONE, polyeth ylene glycol, potassium OR potassium OR potassium OR potassium chloride OR p otassium chloride OR potassium chloride, saline lock IV - prn tolerating PO fluid AND* * sodium chloride, sodium chloride OBJECTIVE Vital Signs: BP 123/71 (BP Location: Right upper arm) | Pulse 62 | Temp 97.4 F (36.3 C) (Oral) | Resp 18 | Ht 1.753 m (5' 9") | Wt 106.5 kg (234 lb 12.6 oz) | SpO2 96% | BMI 34.67 kg/m Temp: [97.4 F (36.3 C)-97.7 F (36.5 C)] 97.4 F (36.3 C) (05/26 424) BP: (113-136)/(60-76) 123/71 (05/26 424) Heart Rate: [61-71] 62 (05/26 528) Resp: [18] 18 (05/26 424) SpO2: [95 %-97 %] 96 % (05/26 424) Weight: [106.5 kg (234 lb 12.6 oz)] 106.5 kg (234 lb 12.6 oz) (05/26 528) Physical Exam Exam: Const: Vitals reviewed. No acute distress Skin: No rashes, no edema ENT: No thrush. Lungs: CTAB, no rales or wheezes Heart: RRR, no murmur Abd: soft, NT, + bowel sounds DATA CBC: Lab Results Component Value Date WBC 5.76 05/26/2018 RBC 3.88 (L) 05/26/2018 HGB 8.6 (L) 05/26/2018 HCT 27.6 (L) 05/26/2018 MCV 71.2 (L) 05/26/2018 MCH 22.1 (L) 05/26/2018 MCHC 31.1 (L) 05/26/2018 RDW 59.5 (H) 05/26/2018 PLT 171 05/26/2018 MPV 8.9 05/26/2018 DIFFTYPE MANUAL 05/23/2018 WBC: Lab Results Component Value Date WBC 5.76 05/26/2018 NEUTABSMAN 7.09 05/23/2018 NEUTROABS 9.87 (H) 05/17/2018 NEUTROMAN 77 05/23/2018 LYMPHOABS 1.66 05/23/2018 LYMPHOMAN 18 05/23/2018 LYMPHSABS 1.26 05/17/2018 LYMPHOPCT 10.31 05/17/2018 MONOABSMAN 0.46 05/23/2018 MONOMAN 5 05/23/2018 MONOPCT 7.84 05/17/2018 EOSABS 0.05 05/17/2018 EOSPCT 0.42 05/17/2018 BASOSABS 0.06 05/17/2018 BASOPCT 0.50 05/17/2018 PLTEST ADEQUATE 05/17/2018 NRBC 1 (H) 05/23/2018 CMP: Lab Results Component Value Date NA 134 (L) 05/26/2018 K 4.0 05/26/2018 K 4.8 05/16/2018 CL 94 (L) 05/26/2018 CO2 34 (H) 05/26/2018 ANIONGAP 11 05/26/2018 GLUF 104 (H) 05/26/2018 BUN 11 05/26/2018 CREATININE 0.85 05/26/2018 BCR 14 05/26/2018 CA 7.8 (L) 05/26/2018 PROT 5.9 (L) 05/23/2018 ALB 2.3 (L) 05/23/2018 GLOB 3.6 05/23/2018 BILITOT 0.3 05/23/2018 ALP 138 (H) 05/23/2018 AST 46 (H) 05/23/2018 ALT 58 05/23/2018 EGFR >60 05/26/2018 CRP 1.6 ESR 64 Micro: No new culture data. PROBLEM LIST Principal Problem: Infective endocarditis of aortic valve Active Problems: Type 2 diabetes mellitus without complication, with long-term current use of insulin ([facility] ) Hypoglycemia Suicide attempt by adequate means ([facility]) Benign essential hypertension Polycythemia Urinary retention Chronic bilateral thoracic back pain Current every day smoker Acute cystitis without hematuria Infective discitis Osteomyelitis of lumbar spine ([facility]) Atrial fibrillation ([facility]), 05/18 ASSESSMENT & PLAN Lumbar spinal discitis and osteomyelitis of L4-L5 Likely Enterococcal. Pain is improving. Was covered by ampicillin and gentamicin, now on am picillin/ceftriaxone. Continuing on ampicillin Rx Seen by Dr. Hoffman previously; Neurosurgery note on 05/09: Wear LSO brace when up and around but off in bed. He may still need surgical stabilization down the road depending on his cl inical course. Subacute [place] Aortic valve endocarditis secondary to E faecalis s/p AVR on 05/16. -On review of Micro data, there is actually no gentamicin synergy. Well covered with ampici llin/ceftriaxone. Will need 6 weeks of antibody coverage from May 10, date of first negat corrine blood culture. Treatment will be completed on June 21, 2018. -Prescriptions for antibiotics/lab work in EPIC and paper chart -Inflammatory markers improving, will check weekly, ordered labs for next . Pseudomonas urinary tract infection Received 9 days of Rx until 05/19 Urethral catheter d/c'd; no symptoms of UTI. Disposition: Discharge planning is underway, orders written for IV therapy. ID service will follow at a distance, will plan to check back on 06/02 if he remains in the hospita l, labs ordered for that date. Please call sooner with any questions. Dr. Freeman will assume Infectious Diseases followup starting Monday 05/28. Code Status: Full Code VICENTA CALLAHAN DO 05/26/2018 onversion Transaction , Provider Unknown - 05/26/2018 6:18 AM PDT Nurse Progress Note by Stephanie Lutz RN at 05/26/18617 Author: Stephanie Lutz RN Service: (none) Author Type: Registered Nurse Filed: 05/26/18620 Date of Service: 05/26/18617 Status: Signed Brake Rider: Stephanie Lutz RN (Registered Nurse) Dressing changed on PICC at beginning of shift. Lasix drip infusing at 5 ml/hr, vizcaino john ter to gravity. Oxycodone 10 mg PO x 2 given PRN pain. VS stable, otherwise hourly roundin g uneventful. Will continue to monitor. End of shift chart check complete onver anna Transaction, Provider Unknown - 05/25/2018 5:33 PM PDT Case Management by BILL Becerril at 05/25/181732 Author: BILL Becerril Service: (none) Author Type: Antenna Design Engineer Filed: 05/25/18 1738 Date of Service: 05/25/181732 Status: Signed Brake Rider: BILL Becerril (Antenna Design Engineer) 05/25/18 1700 Discharge Planning Evaluation Admitting Diagnosis Suicide Attempt ROW BOSS HOEING p/c with Tam Peralta, [place] [facility] Margarine Maker ([phone] ) states there are no existing [facility] care facilities and recommended working with [place] [facility] office in [place] for increased help at home or placeme nt in a care facility. ROW [place]OSS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 05/18, Recurrent Afib 05/21 and 05/22 - Continue oral Amio and Lopressor - Coumadin started 05/22 - INR 1.3-> 2.3 today; No Coumadin today Volume overload - continue Lasix drip for goal UOP of 250-300cc/hr - Cont to Monitor/replace lytes HypoNatremia improving - Continue fluid restriction and diuresis Urinary retention - Vizcaino reinserted 05/20 - Cont Flomax - Voiding trial again once off Lasix drip Chronic Low back pain - MRI showing discitis/osteomyelitis as per neuro surgery - Ambulating well with PT - Has new larger LSO brace - may need stabilization at some point in future DM - A1C 5.4% - On Basal/Prandial insulin with good BS control Acute blood loss anemia stable - Cont Iron/Vit C Disposition: Case Management working on discharge plan for IV Abx and PT Code Status: Full Code The patient has been seen, all new lab results and imaging reviewed, and the plan discussed with the attending provider, Dr. Alessandro Moran PA-C 05/24/2018 Danelle Wayne DO - 05/24/2018 7:05 AM PDTFormatting of this note might be different from the origin al. Progress Notes by Vicenta Callahan DO at 05/24/18 0705 Author: Vicenta Callahan DO Service: Infectious Disease Author Type: Physician Filed: 05/24/18 0951 Date of Service: 05/24/18704 Status: Signed Brake Rider: Vicenta Callahan DO (Physician) [facility] Service: Infectious Disease Progress Note Hospital Day: LOS: 20 days Post-Op Day: 4 Days Post-Op SUBJECTIVE Patient Summary: Re: Enterococcus faecalis bacteremia L4-5 diskitis/osteomyelitis Aortic valve endocarditis Pseudomonas bacteriuria Chart reviewed. Assumed ID care from Dr. Ruano on 05/14. 05/13: CT surgery consulted; Dr. Vergara plans tissue valve AVR for 05/16. 05/14: Cardiac cath; no lesions requiring intervention 05/16 - AVR with #23 Magna valve. AV vegetation > 1 cm. Transferred to ICU post-op 05/18 Went into A fib with RVR overnight. Amiodarone given. Converted to NSR with PACs. T ransferred out of ICU. Completed course of gentamicin for psudomonas UTI. 05/19 - PICC placed, on Ampicillin/ceftriaxone CC: Back pain Chart reviewed: No new events. Subjective The patient reports that he primarily has back pain when he is first going from laying down to standing up, but it gets better as he moves around. He is comfortable when laying supine . He denies any fevers or chills. ROS No fever, chills sweats. No nausea, vomiting or diarrhea. No rashes or pruritis. No oral pa in. Scheduled Medications amiodarone 200 mg Oral Daily ampicillin 2 g Intravenous Q4H ascorbic acid 500 mg Oral Daily aspirin 81 mg Oral Nightly atorvastatin 40 mg Oral Nightly cefTRIAXone 2 g Intravenous Q12H docusate sodium 100 mg Oral BID DULoxetine 60 mg Oral Daily famotidine 20 mg Oral BID Or famotidine 20 mg Intravenous BID ferrous sulfate (65 FE) 65 mg of iron Oral BID WC gabapentin 300 mg Oral TID insulin detemir 4 Units Subcutaneous BID insulin lispro (human) 1-7 Units Subcutaneous Nightly insulin lispro (human) 2 Units Subcutaneous TID AC insulin lispro (human) 2-14 Units Subcutaneous TID AC magnesium hydroxide 30 mL Oral Daily metoprolol 25 mg Oral BID nicotine 1 patch Transdermal Daily potassium chloride 40 mEq Oral TID WC sodium chloride 10 mL Intravenous 2 times per day tamsulosin 0.4 mg Oral after dinner Continuous Infusions dextrose 5 % and 0.45 % NaCl Stopped (05/18/18 9788) furosemide (LASIX) infusion 9 mg/hr (05/24/18 0018) PRN Medications acetaminophen OR acetaminophen, aluminum-magnesium hydroxide-simethicone, bisacodyl, de xtrose, dextrose, insulin regular 1 unit/mL, lactulose, magnesium sulfate OR magnesium s ulfate OR magnesium sulfate, melatonin, ondansetron, oxyCODONE OR oxyCODONE, polyeth ylene glycol, potassium OR potassium OR potassium OR potassium chloride OR p otassium chloride OR potassium chloride, saline lock IV - prn tolerating PO fluid AND* * sodium chloride, sodium chloride OBJECTIVE Vital Signs: BP 111/61 (BP Location: Right upper arm) | Pulse 58 | Temp 97.4 F (36.3 C) (Oral) | Resp 18 | Ht 1.753 m (5' 9") | Wt 108.1 kg (238 lb 5.1 oz) | SpO2 95% | BMI 35.19 kg/m Temp: [97.3 F (36.3 C)-98 F (36.7 C)] 97.4 F (36.3 C) (05/24 323) BP: (88-117)/(53-70) 111/61 (05/24 323) Heart Rate: [58-98] 58 (05/24 323) Resp: [18] 18 (05/24 323) SpO2: [95 %-98 %] 95 % (05/24 323) Weight: [108.1 kg (238 lb 5.1 oz)] 108.1 kg (238 lb 5.1 oz) (05/24 509) Physical Exam Exam: Const: Vitals reviewed. No acute distress Skin: No rashes, no edema ENT: No thrush. Lungs: CTAB, no rales or wheezes Heart: RRR, no murmur Abd: soft, NT, + bowel sounds DATA CBC: Lab Results Component Value Date WBC 7.02 05/24/2018 RBC 3.86 (L) 05/24/2018 HGB 8.8 (L) 05/24/2018 HCT 28.1 (L) 05/24/2018 MCV 72.7 (L) 05/24/2018 MCH 22.6 (L) 05/24/2018 MCHC 31.1 (L) 05/24/2018 RDW 60.4 (H) 05/24/2018 PLT 215 05/24/2018 MPV 8.1 05/24/2018 DIFFTYPE MANUAL 05/23/2018 WBC: Lab Results Component Value Date WBC 7.02 05/24/2018 NEUTABSMAN 7.09 05/23/2018 NEUTROABS 9.87 (H) 05/17/2018 NEUTROMAN 77 05/23/2018 LYMPHOABS 1.66 05/23/2018 LYMPHOMAN 18 05/23/2018 LYMPHSABS 1.26 05/17/2018 LYMPHOPCT 10.31 05/17/2018 MONOABSMAN 0.46 05/23/2018 MONOMAN 5 05/23/2018 MONOPCT 7.84 05/17/2018 EOSABS 0.05 05/17/2018 EOSPCT 0.42 05/17/2018 BASOSABS 0.06 05/17/2018 BASOPCT 0.50 05/17/2018 PLTEST ADEQUATE 05/17/2018 NRBC 1 (H) 05/23/2018 CMP: Lab Results Component Value Date NA 134 (L) 05/24/2018 K 4.0 05/24/2018 K 4.8 05/16/2018 CL 92 (L) 05/24/2018 CO2 35 (H) 05/24/2018 ANIONGAP 11 05/24/2018 GLUF 82 05/24/2018 BUN 12 05/24/2018 CREATININE 0.75 05/24/2018 BCR 16 05/24/2018 CA 7.9 (L) 05/24/2018 PROT 5.9 (L) 05/23/2018 ALB 2.3 (L) 05/23/2018 GLOB 3.6 05/23/2018 BILITOT 0.3 05/23/2018 ALP 138 (H) 05/23/2018 AST 46 (H) 05/23/2018 ALT 58 05/23/2018 EGFR >60 05/24/2018 Micro: No new culture data. PROBLEM LIST Principal Problem: Infective endocarditis of aortic valve Active Problems: Type 2 diabetes mellitus without complication, with long-term current use of insulin (HCC ) Hypoglycemia Suicide attempt by adequate means ([facility]) Benign essential hypertension Polycythemia Urinary retention Chronic bilateral thoracic back pain Current every day smoker Acute cystitis without hematuria Infective discitis Osteomyelitis of lumbar spine ([facility]) Atrial fibrillation (HCC), 05/18 ASSESSMENT & PLAN Lumbar spinal discitis and osteomyelitis of L4-L5 Likely Enterococcal. Pain is improving. Was covered by ampicillin and gentamicin, now on am picillin/ceftriaxone. Continuing on ampicillin Rx Seen by Dr. Hoffman previously; Neurosurgery note on 05/09: Wear LSO brace when up and around but off in bed. He may still need surgical stabilization down the road depending on his cl inical course. Subacute [place] Aortic valve endocarditis secondary to E faecalis s/p AVR on 05/16. -On review of Micro data, there is actually no gentamicin synergy. Well covered with ampici llin/ceftriaxone. Will need 6 weeks of antibody coverage from May 10, date of first negat corrine blood culture. Treatment will be completed on June 21, 2018. -Prescriptions for antibiotics/lab work in EPIC and paper chart Given incarceration history, parole status, behavioral health history, difficult discharg e planning. Checking into possibility of going to intermediate facility/infirmary with correct ions facility for IV antibiotic Rx/PT Dental evaluation - outpatient -Repeat inflammatory markers on . Pseudomonas urinary tract infection Received 9 days of Rx until 05/19 Urethral catheter d/c'd; no symptoms of UTI. Disposition: Discharge planning is underway, orders written for IV therapy. ID service will follow at a distance. I will plan to check back on , labs ordered for that date, so bhavesh if needed. Please call with any questions. Code Status: Full Code VICENTA CALLAHAN DO 05/24/2018 onversion Transaction , Provider Unknown - 05/24/2018 6:56 AM PDT Nurse Progress Note by Diana Martinez RN at 05/24/18655 Author: Diana Martinez RN Service: (none) Author Type: Registered Nurse Filed: 05/24/18699 Date of Service: 05/24/18655 Status: Signed Brake Rider: Diana Martinez RN (Registered Nurse) No acute events, SB/NSR during the night. U/O 2700ml in 12hr. Chart check complete. onver anna Transaction, Provider Unknown - 05/23/2018 6:19 PM PDT Nurse Progress Note by Itzel Crawford RN at 05/23/181818 Author: Itzel Crawford RN Service: (none) Author Type: Registered Nurse Filed: 05/23/181820 Date of Service: 05/23/181818 Status: Signed Brake Rider: Itzel Crawford RN (Registered Nurse) I have assessed, reviewed, and participated in all assessments, medication administrations, charting performed by BETTIE Byrnes. Clinical judgment and decision making discussed together and I agree with everything charted today. Itezl Crawford RN 05/23/18 @ 1821 Electronically signed by Conversion [facility], Provider at 05/04/2019 8:30 PM PDTConver anna Transaction, Provider Unknown - 05/23/2018 5:56 PM PDT Nurse Progress Note by Soniya Duron RN at 05/23/181755 Author: Soniya Duron RN Service: (none) Author Type: Registered Nurse Filed: 05/23/181815 Date of Service: 05/23/181755 Status: Signed Brake Rider: Soniya Duron RN (Registered Nurse) Patient had uneventful shift. Lasix drip decreased to nine. UO averages 250/hr. Potassium l abs 3.8 throughout the day. 60 mEq K provided at dinner. Next recheck at 2100. Pain well con trolled with oxycodone 10mg q4h. Sinus dennis to sinus rhythm with PACs. Up with physical the rapy today, placement still questionable. PICC line draws and flushes. Antibiotic continues per order. VSS. Hourly rounding continues. End of shift chart check complete. Soniya Duron RN. 05/23/2018 @ 1815. Kvng Knowles PT - 05/23/2018 4:55 PM PDTFormatting of this note might be different from the o riginal. Therapy Progress Note by Kvng Pacheco PT at 05/23/181654 Author: Kvng Pacheco, PT Service: (none) Author Type: Physical Therapist Filed: 05/23/18 8468 Date of Service: 05/23/181654 Status: Signed Brake Rider: Kvng Pacheco PT (Physical Therapist) PHYSICAL THERAPY TREATMENT NOTE PT Received On: 05/23/18 Reason for Treatment: Cardiac Requires PT Follow Up: Yes Follow up PT Only?: No Assistance Required: 1 person Recommendations: SNF PT Ready for Discharge: Yes Plan Treatment/Interventions: Continue per Primary PT POC Progress: Progressing toward goals, Slow progress, decreased activity tolerance, Slow progr ess, cognitive deficits (decreased compliance with precautions) Summary Comments: Pt in recliner, agreeable to PT. Reviewed sternal precautions, pt agitated that alvin mcconnell keeps getting asked about precautions and is able to recall without cueing, however while discussed precautions he continues to break them. Pt asking what he is allowed to perform wi th UEs, discussed techniques for performance of ADLs and mobility within precautions. He amb with antalgic gait fairly reliant on UEs for support and grunting for breaths, provided to correct. He takes seated rest break in 4WW, properly setting up walker for transfers. Pt adamant about returning to bed after activity, with encouragement he is able to scoot up to HOB via bridging technique without assistance needed. Vitals stable, including SpO2 mid90s o n RA. Precautions Spinal Precautions: Lumbar, TLSO on when upright Cardiac Precautions: Sternal Other Precautions: fall risk Cognition Overall Cognitive Status: Within Functional Limits Orientation Level: Oriented FUNCTIONAL MOBILITY Transfers Sit to/from Stand: Moderate assist (to arise OR lower), Verbal instruction Ambulation Maximal Ambulation Distance (feet): 70 Total Ambulation Distance (feet): 140 Ambulation Assistance: Minimal assist Distance limited by?: Patient's ability Pattern: Alternating, Decreased leighton, Antalgic, Forward flexed Assistive Device: Walker 4 wheeled Activity Tolerance: Patient limited by fatigue Nurse Made Aware: yes Safety Devices in Place: (call light in reach, needs met, RN with pt) The patient demonstrated no indication of pain during therapy session. Education Completed: Education Topics: [x] Rationale for PT [] PT POC [] DC planning [x] Precautions [] Exercises [x] Bed mobility [x] Transfer training with hand placement [x] Gait training [] Stair training [] Use of gait belt [] Other Completed with: [x] Patient [] Spouse [] Significant other [] Family [] C aregiver [] Other Completed by: [x] Verbal education [] Demonstration [] Handout [] Other: Response to Education: [x] Stated Understanding [x] Reinforcement necessary [] Returned demonstration [] Demonstrated understanding [] No evidence of learning [] Refused ramisonKvng PT - 05/23/2018 10:15 AM PDT Therapy Progress Note by Kvng Pacheco PT at 05/23/18 1015 Author: Kvng Pacheco PT Service: (none) Author Type: Physical Therapist Filed: 05/23/18 1523 Date of Service: 05/23/18 1015 Status: Signed Brake Rider: Kvng Pacheco PT (Physical Therapist) PHYSICAL THERAPY TREATMENT NOTE PT Received On: 05/23/18 Reason for Treatment: Cardiac Requires PT Follow Up: Yes Follow up PT Only?: No Assistance Required: 1 person Recommendations: SNF PT Ready for Discharge: Yes Plan Treatment/Interventions: Continue per Primary PT POC Progress: Progressing toward goals, Slow progress, cognitive deficits (decreased compliance with precautions) Summary Comments: Pt in recliner, agreeable to PT, vitals stable. He continues to inconsistently fo llow sternal precautions despite . LSO brace donned. With STS, pt having difficulties and begins to use UEs for support. Upon second attempt he is able to stand with modA. He amb wit h fairly fast gait speed, provided for breathing techniques and pacing of activity. He is fatigued and takes seated rest break in 4WW. Pt back in recliner post-activity, vitals stab le. Precautions Spinal Precautions: Lumbar, TLSO on when upright Cardiac Precautions: Sternal Other Precautions: fall risk Cognition Overall Cognitive Status: Within Functional Limits Orientation Level: Oriented FUNCTIONAL MOBILITY Transfers Sit to/from Stand: Moderate assist (to arise OR lower) Ambulation Maximal Ambulation Distance (feet): 70 Total Ambulation Distance (feet): 140 Ambulation Assistance: Minimal assist Distance limited by?: Patient's ability Pattern: Alternating, Decreased leighton Assistive Device: Walker 4 wheeled Activity Tolerance: Patient limited by fatigue Nurse Made Aware: yes Safety Devices in Place: (call light in reach, needs met) The patient demonstrated no indication of pain during therapy session when not sitting upri ght. Education Completed: Education Topics: [x] Rationale for PT [x] PT POC [] DC planning [x] Precautions [] Exercises [] Bed mobility [x] Transfer training with hand placement [x] Gait training [] Stair training [] Use of gait belt [] Other Completed with: [x] Patient [] Spouse [] Significant other [] Family [] C aregiver [] Other Completed by: [x] Verbal education [] Demonstration [] Handout [] Other: Response to Education: [x] Stated Understanding [x] Reinforcement necessary [] Returned demonstration [] Demonstrated understanding [] No evidence of learning [] Refused Sima Roper PA-C - 05/23/2018 8:30 AM PDTFormatting of this note might be different from the [place] Progress Notes by Sima Moran PA-C at 05/23/18829 Author: Sima Moran PA-C Service: Cardiac, Thoracic, and Vascular Surgery Auth or Type: Physician Herbarium Curator - Certified Filed: 05/23/18838 Date of Service: 05/23/18829 Status: Attested Brake Rider: Sima Moran PA-C (Physician Herbarium Curator - Certified) Cosigner: Kin dietz MD at 05/24/18801 Attestation signed by Kin Vergara MD at 05/24/18801 Patient was seen, examined, labs, x-rays, treatment plan reviewed. [facility] Service: Cardiothoracic Surgery Progress Note ROOM: [facility] Hospital Day: LOS: 19 days Post-Op Day: 7 Days Post-Op Surgery/Procedure: 05/16/2018 Aortic valve replacement with a #23 Magna valve. SUBJECTIVE Events Overnight: Back in AF yesterday morning (3rd time) and back on IV Amio. Conve rted back to SR/SB and IV Amio discontinued. Continue oral Amio maintenance dose. Coumadin started Continues on Lasix drip t for volume overload with goal UOP 250-300cc/hr. HD stable; SBP 115-120s. Down to 1LNC. Ambulating with PT TID UOP: 6450cc/24hrs I&O 2L/6450cc = -4360cc CTs removed 05/18 TPWs removed 05/20 +BM 05/21 Has Midline Wt stable today at 111kg (preop 96.9kg) OBJECTIVE Vital Signs: BP 111/66 | Pulse 98 | Temp 98.5 F (36.9 C) (Oral) | Resp 20 | Ht 1.753 m (5' 9") | Wt 111 kg (244 lb 11.4 oz) | SpO2 94% | BMI 36.14 kg/m Current weight: Patient Vitals for the past 96 hrs: Weight 05/23/18 0545 111 kg (244 lb 11.4 oz) 05/22/18 0500 111.7 kg (246 lb 4.1 oz) 05/21/18 0538 115.7 kg (255 lb 1.2 oz) 05/20/18 0600 116.8 kg (257 lb 8 oz) Admission weight: Weight: 96.9 kg (213 lb 10 oz) Physical Exam: General: Alert, oriented, in no acute distress, resting in chair Heart: RRR No murmur Lungs: CTA b/l Dim bases. Abdomen: Soft, nondistended, nontender Extremities: Well perfused, mild LE edema Musculoskeletal: no deformities or significant abnormalities Neurological: No gross focal motor or sensory deficits Skin: No rash or lesions. Mid-sternal incision dressing is C/D/I. Chest tube removed inci anna C/D/I. Pacing wires removed EVH incisions C/D/I. DATA: Scheduled Medications amiodarone 200 mg Oral Daily ampicillin 2 g Intravenous Q4H ascorbic acid 500 mg Oral Daily aspirin 81 mg Oral Nightly atorvastatin 40 mg Oral Nightly cefTRIAXone 2 g Intravenous Q12H docusate sodium 100 mg Oral BID DULoxetine 60 mg Oral Daily famotidine 20 mg Oral BID Or famotidine 20 mg Intravenous BID ferrous sulfate (65 FE) 65 mg of iron Oral BID WC gabapentin 300 mg Oral TID insulin detemir 4 Units Subcutaneous BID insulin lispro (human) 1-7 Units Subcutaneous Nightly insulin lispro (human) 2 Units Subcutaneous TID AC insulin lispro (human) 2-14 Units Subcutaneous TID AC magnesium hydroxide 30 mL Oral Daily metoprolol 25 mg Oral BID nicotine 1 patch Transdermal Daily potassium chloride 40 mEq Oral TID WC sodium chloride 10 mL Intravenous 2 times per day tamsulosin 0.4 mg Oral after dinner warfarin 3 mg Oral Daily Continuous Infusions dextrose 5 % and 0.45 % NaCl Stopped (05/18/181536) furosemide (LASIX) infusion 10 mg/hr (05/23/18 0430) insulin regular 1 unit/mL Stopped (05/18/181536) PRN Medications acetaminophen OR acetaminophen, aluminum-magnesium hydroxide-simethicone, bisacodyl, de xtrose, dextrose, insulin regular 1 unit/mL, lactulose, magnesium sulfate OR magnesium s ulfate OR magnesium sulfate, melatonin, ondansetron, oxyCODONE OR oxyCODONE, polyeth ylene glycol, potassium OR potassium OR potassium OR potassium chloride OR p otassium chloride OR potassium chloride, saline lock IV - prn tolerating PO fluid AND* * sodium chloride, sodium chloride HOME MEDS: Prior to Admission medications Medication Sig Start Date End Date Taking? Authorizing Provider AMLODIPINE BESYLATE PO Take 5 mg by mouth daily. Yes Historical Provider gabapentin (NEURONTIN) 300 MG capsule Take 300 mg by mouth 3 (three) times daily. Yes His torical Provider hydrOXYzine (VISTARIL) 25 MG capsule Take 25 mg by mouth as needed for Itching. Yes Histo rical Provider insulin glargine (LANTUS) 100 UNIT/ML injection Inject into the skin nightly. Yes Histor ical Provider insulin lispro, human, (HUMALOG) 100 UNIT/ML injection Inject 10 Units into the skin 3 (thr ee) times daily before meals. Yes Historical Provider lisinopril-hydrochlorothiazide (ZESTORETIC) 20-12.5 MG per tablet Take 1 tablet by mouth da robi. Yes Historical Provider betamethasone dipropionate (DIPROLENE) 0.05 % cream Apply topically 2 (two) times daily. A pply to affected areas on the skin of left leg two times a day. Historical Provider permethrin (ELIMITE) 5 % cream Apply topically once a week. Apply from head to toe, leave on for 8 to 14 hours then rinse. May reapply in 7 days. Historical Provider LABS: Recent Labs Lab 05/23/1842705/22/1831305/21/18 0509 05/17/18 0305 05/16/18 1226 WBC 9.21 9.84 11.00 < > 12.20* 20.46* HGB 8.7* 8.5* 8.2* < > 8.6* 12.5* HCT 26.5* 25.5* 24.4* < > 26.9* 40.0 PLT 209 219 204 < > 162 164 NEUTOPHILPCT -- -- -- -- 80.93 80.05 MONOPCT -- -- -- -- 7.84 4.11 < > = values in this interval not displayed. Recent Labs Lab 05/23/1842705/23/18 0251 05/22/18 1412 05/22/1831305/21/18 0509 NA 133* -- -- -- 131* -- 130* K 3.8 3.7 3.8 < > 3.5 < > 4.2 CL 93* -- -- -- 93* -- 95* CO2 30 -- -- -- 28 -- 25 BUN 16 -- -- -- 21 -- 22 CREATININE 0.8 -- -- -- 0.92 -- 0.85 PROT 5.9* -- -- -- -- -- -- BILITOT 0.3 -- -- -- -- -- -- ALT 58 -- -- -- -- -- -- AST 46* -- -- -- -- -- -- < > = values in this interval not displayed. Phosphorus: Lab Results Component Value Date PHOS 3.8 05/16/2018 Invalid input(s): LABALBU Recent Labs Lab 05/23/1842705/22/1831305/21/18 0509 MG 1.9 1.9 2.2 No results for input(s): AMYLASE in the last 168 hours. Recent Labs Lab 05/16/18 1115 05/16/18 1111 05/16/18 1031 BEART 1 2 1 Recent Labs Lab 05/23/18 0428 05/16/18 1226 APTT -- 28 INR 1.3 1.1 No results for input(s): TSH, T3FREE, FREET4 in the last 168 hours. No results for input(s): CKTOTAL, TROPONINI, TROPONINT, CKMBINDEX in the last 168 hours. PROBLEM LIST Principal Problem: Infective endocarditis of aortic valve Active Problems: Type 2 diabetes mellitus without complication, with long-term current use of insulin ([facility] ) Hypoglycemia Suicide attempt by adequate means ([facility]) Benign essential hypertension Polycythemia Urinary retention Chronic bilateral thoracic back pain Current every day smoker Acute cystitis without hematuria Infective discitis Osteomyelitis of lumbar spine ([facility]) Atrial fibrillation ([facility]), 05/18 ASSESSMENT & PLAN S/P AVR for infective endocarditis - Cont ASA, Decrease Lopressor 25mg BID and monitor HR - Continue to Encourage I.S and ambulation - still requiring O2 1LNC - Abx x 6weeks as per ID PAF 05/18, Recurrent Afib 05/21 and 05/22 - Continue oral Amio and Lopressor - Coumadin started 05/22 Volume overload - continue Lasix drip for goal UOP of 250-300cc/hr - Cont to Monitor lytes HypoNatremia improving - Continue fluid restriction and diuresis Urinary retention - Vizcaino reinserted 05/20 - Cont Flomax - Voiding trial again once off Lasix drip Chronic Low back pain - MRI showing discitis/osteomyelitis as per neuro surgery - Ambulating well with PT - Has new larger LSO brace - may need stabilization at some point in future DM - A1C 5.4% - On Basal/Prandial insulin with good BS control Acute blood loss anemia stable - Cont Iron/Vit C Disposition: Case Management working on discharge plan for IV Abx and PT Code Status: Full Code The patient has been seen, all new lab results and imaging reviewed, and the plan discussed with the attending provider, Dr. Alessandro Moran PA-C 05/23/2018 onversio n Transaction, Provider Unknown - 05/23/2018 6:24 AM PDTFormatting of this note might be di fferent from the original. Nurse Progress Note by Diana Martinez RN at 05/23/18623 Author: Diana Martinez RN Service: (none) Author Type: Registered Nurse Filed: 05/23/1854 Date of Service: 05/23/18623 Status: Addendum Brake Rider: Diana Martinez RN (Registered Nurse) Related Notes: Original Note by Diana Martinez RN (Registered Nurse) filed at 624 No acute events during shift. Pt remained in NSR. Chart check complete. onver anna Transaction, Provider Unknown - 05/22/2018 7:11 PM PDT Nurse Progress Note by My Gomez RN at 05/22/181910 Author: My Gomez RN Service: (none) Author Type: Registered Nurse Filed: 05/22/181913 Date of Service: 05/22/181910 Status: Signed Brake Rider: My Gomez RN (Registered Nurse) O2 via NC has been decreased to 1 L/min, patient is tolerating very well, maintaining O2 sa t of 98. Patients need for pain medication has decreased, the last dose was administered at 1339. Patient is in stable condition. End of shift chart review complete. onver anna Transaction, Provider Unknown - 05/22/2018 3:47 PM PDT Therapy Progress Note by Maurilio Veliz PT at 05/22/18 9327 Author: Maurilio Veliz PT Service: (none) Author Type: Physical Therapist Filed: 05/22/18 1631 Date of Service: 05/22/18 1547 Status: Signed Brake Rider: Maurilio Veliz PT (Physical Therapist) PHYSICAL THERAPY TREATMENT NOTE PT Received On: 05/22/18 Reason for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 05/21/2018 6:49 AM PDTFormatting of this note might be different from the peewee ric. Progress Notes by Vicenta Callahan DO at 05/21/18648 Author: Vicenta Callahan DO Service: Infectious Disease Author Type: Physician Filed: 05/21/18814 Date of Service: 05/21/18648 Status: Signed Brake Rider: Vicenta Callahan DO (Physician) [facility] Service: Infectious Disease Progress Note Hospital Day: LOS: 17 days Post-Op Day: 4 Days Post-Op SUBJECTIVE Patient Summary: Re: Enterococcus faecalis bacteremia L4-5 diskitis/osteomyelitis Aortic valve endocarditis Pseudomonas bacteriuria Chart reviewed. Assumed ID care from Dr. Ruano on 05/14. 05/13: CT surgery consulted; Dr. Vergara plans tissue valve AVR for 05/16. 05/14: Cardiac cath; no lesions requiring intervention 05/16 - AVR with #23 Magna valve. AV vegetation > 1 cm. Transferred to ICU post-op 05/18 Went into A fib with RVR overnight. Amiodarone given. Converted to NSR with PACs. T ransferred out of ICU. Completed course of gentamicin for psudomonas UTI. 05/19 - PICC placed, on Ampicillin/ceftriaxone CC: Back pain Chart reviewed: No new events. Subjective The patient reports that he still has back pain, especially when transferring or reposition ing. It is gradually getting better. He denies any weakness or paresthesias in his legs. No fevers or chills. He has been tolerating ceftriaxone and ampicillin without difficulty. ROS No fever, chills sweats. No nausea, vomiting or diarrhea. No rashes or pruritis. No oral pa in. Scheduled Medications amiodarone 400 mg Oral TID ampicillin 2 g Intravenous Q4H ascorbic acid 500 mg Oral Daily aspirin 81 mg Oral Nightly atorvastatin 40 mg Oral Nightly cefTRIAXone 2 g Intravenous Q12H docusate sodium 100 mg Oral BID DULoxetine 60 mg Oral Daily famotidine 20 mg Oral BID Or famotidine 20 mg Intravenous BID ferrous sulfate (65 FE) 65 mg of iron Oral BID WC gabapentin 300 mg Oral TID insulin detemir 4 Units Subcutaneous BID insulin lispro (human) 1-7 Units Subcutaneous Nightly insulin lispro (human) 2 Units Subcutaneous TID AC insulin lispro (human) 2-14 Units Subcutaneous TID AC magnesium hydroxide 30 mL Oral Daily metoprolol 25 mg Oral 3 times daily nicotine 1 patch Transdermal Daily sodium chloride 10 mL Intravenous 2 times per day [START ON 05/22/2018] sodium phosphate 1 enema Rectal Once Continuous Infusions amiodarone infusion 1 mg/min (05/21/18617) dextrose 5 % and 0.45 % NaCl Stopped (05/18/181536) furosemide (LASIX) infusion 4 mg/hr (05/20/182053) insulin regular 1 unit/mL Stopped (05/18/181536) PRN Medications acetaminophen OR acetaminophen, aluminum-magnesium hydroxide-simethicone, amiodarone IV bolus, bisacodyl, dextrose, dextrose, insulin regular 1 unit/mL, lactulose, magnesium sulfa te OR magnesium sulfate OR magnesium sulfate, melatonin, ondansetron, oxyCODONE OR oxyCODONE, polyethylene glycol, potassium OR potassium OR potassium OR potass ium chloride OR potassium chloride OR potassium chloride, saline lock IV - prn valeria ating PO fluid AND sodium chloride, sodium chloride OBJECTIVE Vital Signs: BP 111/69 | Pulse 101 | Temp 97.9 F (36.6 C) (Oral) | Resp 18 | Ht 1.753 m (5' 9") | Wt 115.7 kg (255 lb 1.2 oz) | SpO2 93% | BMI 37.67 kg/m Temp: [97.5 F (36.4 C)-98 F (36.7 C)] 97.9 F (36.6 C) (05/21 319) BP: (111-152)/(69-91) 111/69 (05/21 618) Heart Rate: [64-113] 101 (05/21 603) Resp: [18-20] 18 (05/21 319) SpO2: [92 %-99 %] 93 % (05/21 319) Weight: [115.7 kg (255 lb 1.2 oz)] 115.7 kg (255 lb 1.2 oz) (05/21 538) Physical Exam Exam: Const: Vitals reviewed. No acute distress Skin: No rashes, no edema ENT: No thrush. Lungs: CTAB, no rales or wheezes Heart: RRR, no murmur Abd: soft, NT, + bowel sounds DATA CBC: Lab Results Component Value Date WBC 13.78 (H) 05/20/2018 RBC 3.52 (L) 05/20/2018 HGB 8.2 (L) 05/20/2018 HCT 25.0 (L) 05/20/2018 MCV 71.1 (L) 05/20/2018 MCH 23.2 (L) 05/20/2018 MCHC 32.6 05/20/2018 RDW 56.9 (H) 05/20/2018 PLT 212 05/20/2018 MPV 8.5 05/20/2018 DIFFTYPE AUTOMATED 05/17/2018 WBC: Lab Results Component Value Date WBC 13.78 (H) 05/20/2018 NEUTROABS 9.87 (H) 05/17/2018 LYMPHSABS 1.26 05/17/2018 LYMPHOPCT 10.31 05/17/2018 MONOPCT 7.84 05/17/2018 EOSABS 0.05 05/17/2018 EOSPCT 0.42 05/17/2018 BASOSABS 0.06 05/17/2018 BASOPCT 0.50 05/17/2018 PLTEST ADEQUATE 05/17/2018 CMP: Lab Results Component Value Date NA 130 (L) 05/21/2018 K 4.2 05/21/2018 K 4.8 05/16/2018 CL 95 (L) 05/21/2018 CO2 25 05/21/2018 ANIONGAP 13 05/21/2018 GLUF 95 05/21/2018 BUN 22 05/21/2018 CREATININE 0.85 05/21/2018 BCR 26 05/21/2018 CA 7.8 (L) 05/21/2018 PROT 7.3 05/04/2018 ALB 2.7 (L) 05/04/2018 GLOB 4.5 05/04/2018 BILITOT 0.5 05/04/2018 ALP 103 05/04/2018 AST 17 05/04/2018 ALT 12 05/04/2018 EGFR >60 05/21/2018 Micro: No new culture data. PROBLEM LIST Principal Problem: Infective endocarditis of aortic valve Active Problems: Type 2 diabetes mellitus without complication, with long-term current use of insulin ([facility] ) Hypoglycemia Suicide attempt by adequate means ([facility]) Benign essential hypertension Polycythemia Urinary retention Chronic bilateral thoracic back pain Current every day smoker Acute cystitis without hematuria Infective discitis Osteomyelitis of lumbar spine ([facility]) Atrial fibrillation ([facility]), 05/18 ASSESSMENT & PLAN Lumbar spinal discitis and osteomyelitis of L4-L5 Likely Enterococcal. Pain is improving. Was covered by ampicillin and gentamicin, now on am picillin/ceftriaxone. Continuing on ampicillin Rx Seen by Dr. Hoffman previously; Neurosurgery note on 05/09: Wear LSO brace when up and around but off in bed. He may still need surgical stabilization down the road depending on his cl inical course. Subacute [place] Aortic valve endocarditis secondary to E faecalis s/p AVR on 05/16. -On review of Micro data, there is actually no gentamicin synergy. Well covered with ampici llin/ceftriaxone. Will need 6 weeks of antibody coverage from May 10, date of first negat corrine blood culture. Treatment will be completed on June 21, 2018. -Prescriptions for antibiotics/lab work in EPIC and paper chart Given incarceration history, parole status, behavioral health history, difficult discharg e planning. Checking into possibility of going to intermediate facility/infirmary with correct ions facility for IV antibiotic Rx/PT Dental evaluation - outpatient Pseudomonas urinary tract infection Received 9 days of Rx until 05/19 Urethral catheter d/c'd; no symptoms of UTI. Disposition: Discharge planning is underway, orders written for IV therapy. ID service will follow at a distance. I will plan to check back early next week, sooner if needed. Please c all with any questions. Code Status: Full Code VICENTA CALLAHAN DO 05/21/2018 onversion Transaction , Provider Unknown - 05/21/2018 6:45 AM PDT Nurse Progress Note by Anmol Hobbs, RN at 05/21/18644 Author: Anmol Hobbs RN Service: (none) Author Type: Registered Nurse Filed: 05/21/18644 Date of Service: 05/21/18644 Status: Signed Brake Rider: Anmol Hobbs RN (Registered Nurse) 24 hour chart check complete. onver anna Transaction, Provider Unknown - 05/20/2018 6:11 PM PDT Nurse Progress Note by Itzel Crawford RN at 05/20/181810 Author: Itzel Crawford RN Service: (none) Author Type: Registered Nurse Filed: 05/20/18 184 Date of Service: 05/20/181810 Status: Addendum Brake Rider: Itzel Crawford RN (Registered Nurse) Related Notes: Original Note by Itzel Crawford RN (Registered Nurse) filed at 05/20/18 183 9 Patient noted to have flipped into Afib after working with PT this evening. Rate controlled in the 80's-90's. Sima aware. Thought is that it is the extra fluid and possibly irritatio n from having wires pulled. Lasix gtt continues @ 2, UOP averages 125-175 cc hourly.. Vizcaino catheter in place. Oxycodone 10 mg x 2 this shift. Dilaudid dc'd. On RA and sats mid 90's. C ontinues to require frequent reminder's of sternal precautions. V Wires pulled this shift. I V abx provided. Potassium drawn per order @1800, waiting results. Sternum stable. Still need s BM. Lactulose provided again this evening. Hourly rounding continues. End of shift chart check complete. Itzel Crawford RN 05/20/18 @ 1815 enisha Parry PT - 05/20/2018 5:12 PM PDTFormatting of this note might be different from the peewee ginal. Therapy Progress Note by Denihsa Parry PT at 05/20/18 1712 Author: Denisha Parry PT Service: (none) Author Type: Physical Therapist Filed: 05/20/181809 Date of Service: 05/20/18 171 Status: Signed Brake Rider: Denisha Parry PT (Physical Therapist) PHYSICAL THERAPY TREATMENT NOTE PT Received On: 05/20/18 Reason for Treatment: Cardiac Requires PT Follow Up: Yes Follow up PT Only?: No Focus for Next Treatment: Equipment Trial (LSO poorly fitting-see comment section) Assistance Required: 1 person, 2 person (2nd person for bed mobility and lines) Recommendations: SNF PT Ready for Discharge: Yes (to SNF when medically appropriate) Plan Treatment/Interventions: Continue per Primary PT POC Progress: Slow progress, decreased activity tolerance Summary Comments: pt resting in bed, agreeable to therapy. Noted to be in a-fib 80's to 110's; RN aware and reports he has been in and out for several days. Time spent to assist pt with don ankur scrubp pants per request prior to ambulating. Pt with improved activity tolerance this afternoon, although still very limited by deconditioning and LBP. 1x seated rest break on 4WW with pt needing steadying to turn d/t variable direction LOBs. Pt needs near-constant r eminders for sternal precautions when reaching to sit or adjusting clothes, etc. He is impu lsive at times and needs cues to slow down and pace self for safety. LSO continues to be ve ry tight 2/2 recent weight gain/fluid retention; may be adviseable to contact CME supplier f or larger one or speak with neurosurgeon for other options. Pt assisted back to supine and repositioned for comfort, RN present when PT left. See VS in table below. Pre/Peak/Post Position BP Pulse rate O2 sats L/min Pain complaint Pain intervention Pre Supine 116/80 80's-110's a-fib 99 2NC 7.5/10 in sternum and low back RN informed; repos itioned pt Peak Ambulating 100-110's 94-97 RA Post Supine 124/91 90's a fib 95 RA unchanged Precautions Spinal Precautions: Lumbar (LSO OOB) Cardiac Precautions: Sternal Other Precautions: Fall precautions Cognition Overall Cognitive Status: Impaired Orientation Level: Oriented Oriented: To person, To place, To situation Disoriented: To time Comments: Frequently impulsive, poor command following at times FUNCTIONAL MOBILITY Bed Mobility Supine to Sit: Max assist (BLEs OOB & trunk to upright), x 2 person Sit to Supine: Max assist (BLEs into bed & trunk to lower), x 2 person Scooting : Minimal assist, Maximal assist (2pA to boost in bed) - Transfers Sit to/from Stand: Moderate assist (to arise OR lower), Minimal assist (steadying/contact g uard) Ambulation Maximal Ambulation Distance (feet): 20 Total Ambulation Distance (feet): 180 Ambulation Assistance: Minimal assist, Moderate assist, X1, Safety concerns (cues to slow d own and pace self at times) Distance limited by?: Patient's ability Pattern: Alternating, Decreased leighton, Antalgic, Wide base (significant lateral trunk swa y YEIMI) Assistive Device: Walker 4 wheeled BALANCE Balance: (LOB with PT steadying while turning to/from sit on 4WW) Activity Tolerance: Patient limited by fatigue, Patient limited by pain Nurse Made Aware: Yes RN Itzel Safety Devices in Place: (call light/needs in reach, RN present when PT left) Education Completed: Education Topics: [x] Rationale for PT [x] PT POC [] DC planning [x] Precautions [x] Exercises [x] Bed mobility [x] Transfer training with hand placement [x] Gait training [] Stair training [x] Use of gait belt [] Other Completed with: [x] Patient [] Spouse [] Significant other [] Family [] C aregiver [] Other Completed by: [x] Verbal education [] Demonstration [] Handout [] Other: Response to Education: [] Stated Understanding [x] Reinforcement necessary [] Returned demonstration [] Demonstrated understanding [x] No evidence of learning [] Refused onversion Transaction , Provider Unknown - 05/20/2018 4:17 PM PDT Case Management by BILL Becerril at 05/20/18 3936 Author: BILL Becerril Service: (none) Author Type: Antenna Design Engineer Filed: 05/20/18 6132 Date of Service: 05/20/181616 Status: Signed Brake Rider: BILL Becerril (Antenna Design Engineer) 05/20/18 1600 Discharge Planning Evaluation Admitting Diagnosis Suicide Attempt Anticipated Disposition Facility Type Other (Comment) ([facility]) ROW BOSS HOEING p/c left msg with Lillian Denis, Facility Personnel Security Assistant with [facility] ([phone] cell) for any possible [place] [facility] care facilities Pt could go to for IV Abx ( till Jun 21) and PT. ROW BOSS HOEING p/c left msg with Anastacio Washington, Chemical Detection Expert with [facility] [place] [facility] ([phone] cell) for any possible [place] [facility] care facilities Pt cou ld go to for IV Abx (till Jun 21) and PT. DCP: Pending placement DOMI KAT, Antenna Design Engineer [phone] cell onver anna Transaction, Provider Unknown - 05/20/2018 2:05 PM PDT Nurse Progress Note by Itzel Crawford RN at 05/20/18 1401 Author: Itzel Crawford RN Service: (none) Author Type: Registered Nurse Filed: 05/20/18 4339 Date of Service: 05/20/18 1408 Status: Signed Brake Rider: Itzel Crawford RN (Registered Nurse) Patient continues to retain, Bladder scan showed 655. Vizcaino placed and 675 returned. Lasix gtt @ 20. Dilaudid dc'd by JACK Gao. Itzel Crawford RN 05/20/18 @ 1407 onver anna Transaction, Provider Unknown - 05/20/2018 12:46 PM PDT Nurse Progress Note by Itzel Crawford RN at 05/20/18 1240 Author: Itzel Crawford RN Service: (none) Author Type: Registered Nurse Filed: 05/20/18 9804 Date of Service: 05/20/18 124 Status: Signed Brake Rider: Itzel Crawford RN (Registered Nurse) Patient voided 180 on commode. No Bowel movement. Oxycodone provided for pain. Continues to refuse vizcaino. Itzel Crawford RN 05/20/18 @ 1247 ima Durbin PA-C - 05/20/2018 12:18 PM PDTFormatting of this note might be different fr om the original. Progress Notes by Sima Moran PA-C at 05/20/18 1218 Author: Sima Moran PA-C Service: Cardiac, Thoracic, and Vascular Surgery Auth or Type: Physician Herbarium Curator - Certified Filed: 05/20/18 1222 Date of Service: 05/20/181217 Status: Attested Brake Rider: Sima Moran PA-C (Physician Herbarium Curator - Certified) Cosigner: Kin dietz MD at 05/20/18 1237 Attestation signed by Kin Vergara MD at 05/20/18 123 Patient was seen, examined, labs, x-rays, treatment plan reviewed. [facility] Service: Cardiothoracic Surgery Progress Note ROOM: [address] [place] [address] Hospital Day: LOS: 16 days Post-Op Day: 4 Days Post-Op Surgery/Procedure: 05/16/2018 Aortic valve replacement with a #23 Magna valve. SUBJECTIVE Events Overnight: HD stable; SBP 120s-140s. Maintaining NSR 60s-70s. Stable on 2LNC . Continues to ambulate with PT UOP: 9950cc/24hrs CTs removed 05/18 TPWs remain OBJECTIVE Vital Signs: BP 131/81 (BP Location: Right upper arm) | Pulse 67 | Temp 98 F (36.7 C) (Oral) | Re sp 19 | Ht 1.753 m (5' 9") | Wt 116.8 kg (257 lb 8 oz) | SpO2 95% | BMI 38.03 kg/m Current weight: Patient Vitals for the past 96 hrs: Weight 05/20/18 0600 116.8 kg (257 lb 8 oz) 05/19/18 0546 112.5 kg (248 lb 0.3 oz) 05/18/18 0559 112.9 kg (248 lb 14.4 oz) 05/17/18 0600 107.3 kg (236 lb 8.9 oz) Admission weight: Weight: 96.9 kg (213 lb 10 oz) Physical Exam: General: Alert, oriented, in no acute distress, resting in chair Heart: RRR No murmur Lungs: CTA b/l Dim bases. Abdomen: Soft, nondistended, nontender Extremities: Well perfused, mild LE edema Musculoskeletal: no deformities or significant abnormalities Neurological: No gross focal motor or sensory deficits Skin: No rash or lesions. Mid-sternal incision dressing is C/D/I. Chest tube removed inci anna C/D/I. Pacing wires present EVH incisions C/D/I. DATA: Scheduled Medications amiodarone 400 mg Oral TID ampicillin 2 g Intravenous Q4H ascorbic acid 500 mg Oral Daily aspirin 81 mg Oral Nightly atorvastatin 40 mg Oral Nightly cefTRIAXone 2 g Intravenous Q12H docusate sodium 100 mg Oral BID DULoxetine 60 mg Oral Daily famotidine 20 mg Oral BID Or famotidine 20 mg Intravenous BID ferrous sulfate (65 FE) 65 mg of iron Oral BID WC gabapentin 300 mg Oral TID insulin detemir 4 Units Subcutaneous BID insulin lispro (human) 1-7 Units Subcutaneous Nightly insulin lispro (human) 2 Units Subcutaneous TID AC insulin lispro (human) 2-14 Units Subcutaneous TID AC magnesium hydroxide 30 mL Oral Daily metoprolol 25 mg Oral BID nicotine 1 patch Transdermal Daily sodium chloride 10 mL Intravenous 2 times per day Continuous Infusions dextrose 5 % and 0.45 % NaCl Stopped (05/18/181536) furosemide (LASIX) infusion 10 mg/hr (05/20/18 0948) insulin regular 1 unit/mL Stopped (05/18/181536) PRN Medications acetaminophen OR acetaminophen, aluminum-magnesium hydroxide-simethicone, amiodarone IV bolus, bisacodyl, dextrose, dextrose, HYDROmorphone OR HYDROmorphone, insulin regular 1 unit/mL, lactulose, magnesium sulfate OR magnesium sulfate OR magnesium sulfate, me latonin, ondansetron, oxyCODONE OR oxyCODONE, polyethylene glycol, potassium OR pota ssium OR potassium OR potassium chloride OR potassium chloride OR potassium chloride, saline lock IV - prn tolerating PO fluid AND sodium chloride, sodium chloride, sodium phosphate HOME MEDS: Prior to Admission medications Medication Sig Start Date End Date Taking? Authorizing Provider AMLODIPINE BESYLATE PO Take 5 mg by mouth daily. Yes Historical Provider gabapentin (NEURONTIN) 300 MG capsule Take 300 mg by mouth 3 (three) times daily. Yes His torical Provider hydrOXYzine (VISTARIL) 25 MG capsule Take 25 mg by mouth as needed for Itching. Yes Histo rical Provider insulin glargine (LANTUS) 100 UNIT/ML injection Inject into the skin nightly. Yes Histor ical Provider insulin lispro, human, (HUMALOG) 100 UNIT/ML injection Inject 10 Units into the skin 3 (thr ee) times daily before meals. Yes Historical Provider lisinopril-hydrochlorothiazide (ZESTORETIC) 20-12.5 MG per tablet Take 1 tablet by mouth da robi. Yes Historical Provider betamethasone dipropionate (DIPROLENE) 0.05 % cream Apply topically 2 (two) times daily. A pply to affected areas on the skin of left leg two times a day. Historical Provider permethrin (ELIMITE) 5 % cream Apply topically once a week. Apply from head to toe, leave on for 8 to 14 hours then rinse. May reapply in 7 days. Historical Provider LABS: Recent Labs Lab 05/20/18 0436 05/19/18 0505 05/18/18 0505 05/17/18 0305 05/16/18 1226 05/16/18 0327 WBC 13.78* 13.83* 14.87* 12.20* 20.46* -- 7.00 HGB 8.2* 8.2* 8.1* 8.6* 12.5* < > 13.6 HCT 25.0* 25.2* 25.1* 26.9* 40.0 < > 41.9 PLT 212 167 134* 162 164 -- 167 NEUTOPHILPCT -- -- -- 80.93 80.05 -- 58.33 MONOPCT -- -- -- 7.84 4.11 -- 5.22 < > = values in this interval not displayed. Recent Labs Lab 05/20/18 0436 05/19/18 1352 05/19/18 0505 05/18/18 0505 NA 129* -- 128* 131* K 4.9 4.5 5.2* 4.7 CL 96* -- 97* 99 CO2 24 -- 22* 23 BUN 28* -- 26* 20 CREATININE 0.94 -- 1.0 0.9 Phosphorus: Lab Results Component Value Date PHOS 3.8 05/16/2018 Invalid input(s): LABALBU Recent Labs Lab 05/20/18 0436 05/19/18 0505 05/18/18 0505 MG 2.5* 2.3 2.4 No results for input(s): AMYLASE in the last 168 hours. Recent Labs Lab 05/16/18 1115 05/16/18 1111 05/16/18 1031 BEART 1 2 1 Recent Labs Lab 05/16/18 1226 APTT 28 INR 1.1 No results for input(s): TSH, T3FREE, FREET4 in the last 168 hours. No results for input(s): CKTOTAL, TROPONINI, TROPONINT, CKMBINDEX in the last 168 hours. PROBLEM LIST Principal Problem: Infective endocarditis of aortic valve Active Problems: Type 2 diabetes mellitus without complication, with long-term current use of insulin ([facility] ) Hypoglycemia Suicide attempt by adequate means ([facility]) Benign essential hypertension Polycythemia Urinary retention Chronic bilateral thoracic back pain Current every day smoker Acute cystitis without hematuria Infective discitis Osteomyelitis of lumbar spine ([facility]) Atrial fibrillation ([facility]), 05/18 ASSESSMENT & PLAN S/P AVR for infective endocarditis - Cont ASA, Lopressor 25mg BID - Continue to Encourage I.S and ambulation - Abx x 6weeks as per ID - D/c TPWs Afib 05/18 - Maintaining NSR on oral Amio and BB Volume overload - Start Lasix drip today HypoNatremia - Continue fluid restriction and diurese Chronic Low back pain - MRI showing discitis/osteomyelitis as per neuro surgery - Ambulating well with PT - Continue LSO brace - may need stabilization at some point in future DM - A1C 5.4% - Transition from Insulin drip to Basal/Prandial insulin with good BS control Acute blood loss anemia - stable - Cont Iron/Vit C Disposition: Case Management working on discharge plan for IV Abx and continued PT Code Status: Full Code The patient has been seen, all new lab results and imaging reviewed, and the plan discussed with the attending provider, Dr. Alessandro Moran PA-C 05/20/2018 onversio n Transaction, Provider Unknown - 05/20/2018 10:35 AM PDTFormatting of this note might be di fferent from the original. Therapy Progress Note by PATO Tovar at 05/20/18 1035 Author: PATO Tovar Service: (none) Author Type: Occupational Therapist Filed: 05/20/18 1308 Date of Service: 05/20/18 1035 Status: Attested Brake Rider: PATO Tovar (Occupational Therapist) Cosigner: AISHA Choi at 05/20/18 1309 Attestation signed by AISHA Choi at 05/20/18 1309 Student therapist assistant speech language pathologist educationally participated in therapy session under the supervi anna of the licensed therapist assistant speech language pathologist. This note was created by the student therapist nadine leiva and co-signed by the licensed therapist assistant speech language pathologist. Information in this note may have been obtained from flowsheet charting. This note is co-signed at the progress note level. T he patient approved of the student's role in care. Alonso LEONARD 05/20/2018 OCCUPATIONAL THERAPY TREATMENT NOTE OT Received On: 05/20/18 Reason for Treatment: Cardiac Requires OT Follow Up: Yes Assistance Required: 1 person, 2 person Furnace Keeper Needed: No Family/Caregiver Present: No Recommendation: SNF Equipment Recommended: Tub transfer bench, Toilet aid, Elastic shoe laces, Sock aid, Sponge long handled Requires OT Follow Up: Yes OT Ready for Discharge: Yes Recommendation Comments Plan Treatment Interventions: (Per OT POC) Progress: Slow progress, cognitive deficits Requires OT Follow Up: Yes Focus for next session: activity tolerance, Safety precautions Follow up OT only? [] Yes [x] No Precautions Spinal Precautions: Lumbar (LSO OOB) Cardiac Precautions: Sternal Other Precautions: Fall precautions Summary Pt supine in recliner upon SRIRAM/s arrival. With encouragement agreeable to OT at this time. Focus of session includes safety precaution review and LE dressing. When asked safety precau tions pt states no bending and turning. Educated on further spinal/cardiac precautions. Pt l eft seated in recliner with call light in place and no further needs at this time. ADL/IADL LE Dressing LE Dressing: Yes Pants Level of Assistance: Setup Sock Level of Assistance: Minimum assistance, Minimal verbal cues LE Dressing Where Assessed: Other (Comment) (recliner) LE Dressing Comments: Pt required x2 assist for STS in order to complete dressing. Demo's p oor carry over from yesterday's session with adhering to precautions while LE dressing. Cues given to cross arm while pull pants up over hips. Pt states would like pants off when prior to sitting back down, when pt doffed pants required cues again to follow precaution. Requir ed steadying assist for balance and safety FUNCTIONAL MOBILITY Transfers Sit to/from Stand: Moderate assist (to arise OR lower), x 2 person, Verbal instruction Safety Devices in Place: Yes Type of Devices: Call lite in place Barriers to d/c at this time include: [] Home environment [] Family support [] Equipment needs [] Cognitive deficits impacting functional independence [] Physical deficits impacting functional independence [] Self-care deficits impacting functional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 Functional [facility], Equipment Needs (see comment), Lack of Family Support /Training, Home Design (see comment), Pain Recommendation Comments: Pt to benefit from ongoing skilled PT to progress all compensatory movement patterns while promoting carryover/compliance with sternal and spinal precautions. Pt requires at this time post acute rehabilitation at SNF when medically appropriate. Plan Treatment/Interventions: Continue per Primary PT POC Progress: Progressing toward goals PT Frequency: 5-7x/wk, Once per day, Twice a day Summary Comments: Pt received supine in bed and agreeable to PT session with ongoing cueing all mov ements to avoid UE reaching/force production increasing burden of care required. Noted fair postural response for increased upright in midline trunk position while at 4ww, however pt w ith significant limitations second treatment for aerobic task with desaturation to 88 on RA and reproduction of localized CP at incision up to 6/10 with pt requesting therapeutic rest and return to room. Noted significant reduction in mobility tolerance PM session with RN pre sent and aware. Pt requires ongoing skilled PT to maximize functional recovery and safely pr omote progression of movement and self care skills. Pt positioned to reclined in beside tatiana liu LSO initially at 86% SpO2, cueing to cease conversation with ability to return to 92% on RA within 2 minutes, call light in reach and nursing remaining present. Precautions Spinal Precautions: Lumbar (LSO OOB) Cardiac Precautions: Sternal Other Precautions: fall precautions, monitor O2 Cognition Overall Cognitive Status: Within Functional Limits Orientation Level: Oriented Oriented: x 4 Comments: poor compliance with sternal precautions, impulsive with movement FUNCTIONAL MOBILITY Bed Mobility Rolling: Moderate assist, Verbal instruction, To left Supine to Sit: Mod assist (BLEs OOB or trunk to upright), x 1 person Scooting : Standby assist, Verbal instruction Transfers Sit to/from Stand: Moderate assist (to arise OR lower), x 2 person Ambulation Weight Bearing Status: WBAT RLE, WBAT LLE Maximal Ambulation Distance (feet): 2x45ft Total Ambulation Distance (feet): 90ft Ambulation Assistance: Minimal assist, X2 Distance limited by?: Patient's ability Pattern: Alternating, Decreased leighton, Right swing foot doesn't pass stance foot, Left sw ing foot doesn't pass stance foot, Right step height adequate, Left step height adequate, Wi de base Assistive Device: Walker 4 wheeled BALANCE Balance: Yes Static Sitting Balance Static Sitting-Balance Support: Feet supported Static Sitting-Level of Assistance: Supervision, Verbal instruction Activity Tolerance: Patient limited by pain, Patient limited by fatigue, Patient limited by shortness of breath (SOB) Nurse Made Aware: BETTIE Almendarez present and aware Safety Devices in Place: Yes Type of Devices: (call light in reach) Restraints Initially in Place: No Pt reporting 0/10 pain at rest, increases to 6/10 during ambulation with cessation of task and RN aware with medication planned. Education Completed: Education Topics: [x] Rationale for PT [x] PT POC [x] DC planning [x] Precautions [] Exercises [x] Bed mobility [x] Transfer training with hand placement [x] Gait training [] Stair training [x] Use of gait belt [] Other Completed with: [x] Patient [] Spouse [] Significant other [] Family [] C aregiver [] Other Completed by: [x] Verbal education [x] Demonstration [] Handout [] Other: Response to Education: [x] Stated Understanding [x] Reinforcement necessary [] Returned demonstration [] Demonstrated understanding [] No evidence of learning [] Refused Pre/Peak/Post Position BP Pulse rate O2 sats L/min pre Semi supine 130/61 73 94 RA peak amb 88-91 RA post sitting 115/82 75 92 RA onver anna Ruizaction, Provider Unknown - 05/18/2018 11:43 AM PDT Progress Notes by Jose Carrillo RD at 05/18/18 1149 Author: Jose Carrillo RD Service: (none) Author Type: Registered Dietitian Filed: 05/18/18 1149 Date of Service: 05/18/18 114 Status: Signed Brake Rider: Jose Carrillo RD (Registered Dietitian) 05/18/18 1136 Subjective Timepoint Follow up Pt c/o L risk follow up. Pt is POD # 2, resting in chair, reports his appetite remains good , is tolerating PO, but is not fond of his dietary restrictions. Reported by Patient Fluid / Beverage Intake Oral Fluids Amount Drinking fluids ad mandeep. Liquid Meal Replacement or Supplement Pt reports drinking Boost Glucose control. Food Intake Amount of Food Pt reports eating 100% of meals, is ordering 3 x a day. This morning for jeevan akfast he had australian toast, cereal, and a Boost glucose control. Type of Food / Meals Cardiac, diabetic 2000 kcal. Parenteral Nutrition Intake Rate/Solution D5 1/2 NS running at 62 ml/hr. Micronutrient Intake Vitamin Intake C Mineral / Element Intake Iron Anthropometrics Weight change Wt is up 16 kg since admit. Suspect wt is related to error. According to I/O' s pt is approx + 0.782 L, noted to have RLE edema. Will continue to monitor wt trend. Biochemical data, medical tests, and procedures reviewed Biochemical data, medical tests, and procedures reviewed Na 131 L. BG 90s - 120s previous 2 4 hrs, on insulin drip. Recommendations Recommended energy needs Continue diet as ordered. Continue Boost GC TID. Will continue to monitor intake for adequacy, further recs to follow per protocol. Nutritional Risk Nutritional risk Low Follow up date 05/23/[address] Sima Madsen PA-C - 05/18/2018 11:13 AM PDTFormatting of this note might be different fr om the original. Progress Notes by Sima Moran PA-C at 05/18/18 1113 Author: Sima Moran PA-C Service: Cardiac, Thoracic, and Vascular Surgery Auth or Type: Physician Herbarium Curator - Certified Filed: 05/18/18 1121 Date of Service: 05/18/18 1113 Status: Attested Brake Rider: Sima Moran PA-C (Physician Herbarium Curator - Certified) Cosigner: Kin dietz MD at 05/18/18 1354 Attestation signed by Kin Vergara MD at 05/18/18 1353 Patient was seen, examined, labs, x-rays, treatment plan reviewed. [facility] Service: Cardiothoracic Surgery Progress Note ROOM: 9105/9105-1 Hospital Day: LOS: 14 days Post-Op Day: 2 Days Post-Op Surgery/Procedure: 05/16/2018 Aortic valve replacement with a #23 Magna valve. SUBJECTIVE Events Overnight: AWAIS overnight -> NSR with IV Amio bolus x 2 and Additional Lopresso r. Oral Amio started. Patient was able to ambulate 1 lap around unit with PT Drips: Off Jayjay yesterday UOP: 725cc/24hrs; 375cc overnight CT Output: 20cc/24hrs; 10cc overnight OBJECTIVE Vital Signs: BP 137/73 (BP Location: Left upper arm) | Pulse 93 | Temp 97.6 F (36.4 C) (Oral) | R skylar 18 | Ht 1.753 m (5' 9") | Wt 112.9 kg (248 lb 14.4 oz) | SpO2 94% | BMI 36.76 kg/m Current weight: Patient Vitals for the past 96 hrs: Weight 05/18/18 0559 112.9 kg (248 lb 14.4 oz) 05/17/18 0600 107.3 kg (236 lb 8.9 oz) 05/16/18 0541 102.5 kg (225 lb 15.5 oz) 05/15/18 0530 102.8 kg (226 lb 10.1 oz) Admission weight: Weight: 96.9 kg (213 lb 10 oz) Physical Exam: General: Alert, oriented, in no acute distress, resting in chair Heart: RRR No murmur Lungs: CTA b/l Dim bases. Abdomen: Soft, nondistended, nontender Extremities: Well perfused, No LE edema Musculoskeletal: no deformities or significant abnormalities Neurological: No gross focal motor or sensory deficits Skin: No rash or lesions. Mid-sternal incision dressing is C/D/I. Chest tube present inci anna C/D/I. Pacing wires present EVH incisions C/D/I. DATA: Scheduled Medications amiodarone 400 mg Oral TID ampicillin 2 g Intravenous Q4H ascorbic acid 500 mg Oral Daily aspirin 81 mg Oral Nightly atorvastatin 40 mg Oral Nightly docusate sodium 100 mg Oral BID DULoxetine 60 mg Oral Daily famotidine 20 mg Oral BID Or famotidine 20 mg Intravenous BID ferrous sulfate (65 FE) 65 mg of iron Oral BID WC gabapentin 300 mg Oral TID gentamicin 1 mg/kg (Adjusted) Intravenous Q8H magnesium hydroxide 30 mL Oral Daily metoprolol 25 mg Oral BID nicotine 1 patch Transdermal Daily sodium chloride 10 mL Intravenous 2 times per day Continuous Infusions dextrose 5 % and 0.45 % NaCl 62 mL/hr at 08/28/18 2000 insulin regular 1 unit/mL 1.4 Units/hr (05/18/18 1015) PRN Medications acetaminophen OR acetaminophen, aluminum-magnesium hydroxide-simethicone, amiodarone IV bolus, bisacodyl, dextrose, dextrose, HYDROmorphone OR HYDROmorphone, insulin regular 1 unit/mL, magnesium sulfate OR magnesium sulfate OR magnesium sulfate, melatonin, on dansetron, oxyCODONE OR oxyCODONE, polyethylene glycol, potassium OR potassium OR* * potassium OR potassium chloride OR potassium chloride OR potassium chloride, s jacinto lock IV - prn tolerating PO fluid AND sodium chloride, sodium chloride, sodium sachi sphate HOME MEDS: Prior to Admission medications Medication Sig Start Date End Date Taking? Authorizing Provider AMLODIPINE BESYLATE PO Take 5 mg by mouth daily. Yes Historical Provider gabapentin (NEURONTIN) 300 MG capsule Take 300 mg by mouth 3 (three) times daily. Yes His torical Provider hydrOXYzine (VISTARIL) 25 MG capsule Take 25 mg by mouth as needed for Itching. Yes Histo rical Provider insulin glargine (LANTUS) 100 UNIT/ML injection Inject into the skin nightly. Yes Histor ical Provider insulin lispro, human, (HUMALOG) 100 UNIT/ML injection Inject 10 Units into the skin 3 (thr ee) times daily before meals. Yes Historical Provider lisinopril-hydrochlorothiazide (ZESTORETIC) 20-12.5 MG per tablet Take 1 tablet by mouth da robi. Yes Historical Provider betamethasone dipropionate (DIPROLENE) 0.05 % cream Apply topically 2 (two) times daily. A pply to affected areas on the skin of left leg two times a day. Historical Provider permethrin (ELIMITE) 5 % cream Apply topically once a week. Apply from head to toe, leave on for 8 to 14 hours then rinse. May reapply in 7 days. Historical Provider LABS: Recent Labs Lab 05/18/18 0505 05/17/18 0305 05/16/18 1226 05/16/18 0327 WBC 14.87* 12.20* 20.46* -- 7.00 HGB 8.1* 8.6* 12.5* < > 13.6 HCT 25.1* 26.9* 40.0 < > 41.9 PLT 134* 162 164 -- 167 NEUTOPHILPCT -- 80.93 80.05 -- 58.33 MONOPCT -- 7.84 4.11 -- 5.22 < > = values in this interval not displayed. Recent Labs Lab 05/18/18 0505 05/18/18 0001 05/17/18 1245 05/17/18 0305 05/16/18 1226 NA 131* -- -- -- 140 -- 143 K 4.7 4.4 4.6 < > 4.6 < > 5.1* CL 99 -- -- -- 109 -- 112* CO2 23 -- -- -- 23 -- 24 BUN 20 -- -- -- 13 -- 11 CREATININE 0.9 -- -- -- 0.60* -- 0.65* < > = values in this interval not displayed. Phosphorus: Lab Results Component Value Date PHOS 3.8 05/16/2018 Invalid input(s): LABALBU Recent Labs Lab 05/18/18 0505 05/18/18 0001 05/17/18 0305 MG 2.4 2.4 2.1 No results for input(s): AMYLASE in the last 168 hours. Recent Labs Lab 05/16/18 1115 05/16/18 1111 05/16/18 1031 BEART 1 2 1 Recent Labs Lab 05/16/18 1226 APTT 28 INR 1.1 No results for input(s): TSH, T3FREE, FREET4 in the last 168 hours. No results for input(s): CKTOTAL, TROPONINI, TROPONINT, CKMBINDEX in the last 168 hours. PROBLEM LIST Principal Problem: Infective endocarditis of aortic valve Active Problems: Type 2 diabetes mellitus without complication, with long-term current use of insulin ([facility] ) Hypoglycemia Suicide attempt by adequate means ([facility]) Benign essential hypertension Polycythemia Urinary retention Chronic bilateral thoracic back pain Current every day smoker Acute cystitis without hematuria Infective discitis Osteomyelitis of lumbar spine ([facility]) Atrial fibrillation ([facility]), 05/18 ASSESSMENT & PLAN S/P AVR for infective endocarditis - Cont ASA and BB. Increase Lopressor 25mg BID - Continue to Encourage I.S and ambulation - D/c CTs; Monitor CXR/enlarged mediastinum. Will check Echo tomorrow to r/o pericardial effusion/clot - Continue TPWs - Abx as per ID Afib - Back in NSR with IV Amio bolus x 2 and oral Amio - Will begin IV Amio drip if AF recurrs - Increase Lopressor 25mg BID Worsening Chronic Low back pain - Ambulating well with PT - MRI showing discitis/osteomyelitis as per neuro surgery - Continue LSO brace - may need stabilization at some point in future - Will plan to begin DVT prophylaxis with Sub Q Heparin in a day or so due to immobility DM - A1C 5.4% - Transition from Insulin drip to Basal/Prandial insulin Acute blood loss anemia - Begin Iron/Vit C and follow Code Status: Full Code The patient has been seen, all new lab results and imaging reviewed, and the plan discussed with the attending provider, Dr. Alessandro Moran PA-C 05/18/2018 onversio n Transaction, Provider Unknown - 05/18/2018 10:45 AM PDTFormatting of this note might be di fferent from the original. Therapy Progress Note by Teri Hough PT at 05/18/18 1045 Author: Teri Hough PT Service: (none) Author Type: Physical Therapist Filed: 05/18/18 1534 Date of Service: 05/18/18 1045 Status: Signed Brake Rider: Teri Hough PT (Physical Therapist) PHYSICAL THERAPY TREATMENT NOTE PT Received On: 05/18/18 Reason for Treatment: Cardiac (AVR) Requires PT Follow Up: Yes Follow up PT Only?: No Focus for Next Treatment: Bed Mobility Technique, Transfer Technique, Patient Education (se e comment) Assistance Required: 1 person, 2 person (2nd person line management) Furnace Keeper Needed: No Recommendations: SNF Barriers to Discharge: Physical Deficits Impacting Functional [facility], Self-care Defic its Impacting Functional [facility], Equipment Needs (see comment), Lack of Family Support /Training, Home Design (see comment), Pain Recommendation Comments: Continued poor compliance with sternal precautions during transfer s and avoidance of unilateral reaching. Benefit from further high repetition for transfer tr aining to increase compliance and reduced burden of care. Plan Treatment/Interventions: Continue per Primary PT POC Progress: Progressing toward goals PT Frequency: 5-7x/wk, Once per day, Twice a day Summary Comments: Pt received upright in bedside chair donning LSO and agreeable to PT treatment se ssion with emphasis for progression and safety during gait. Noted ongoing max cueing to avoi d UE force production during transition sit<>stance with reduced weight bearing through LE d uring ambulation and forward flexion with [facility] Pt with LE strength and balance present allowing for progression of AD next treatment session while inc reasing demand of postural control at the trunk to avoid WB at BUE. Pt returned end of sessi on to reclined in bedside chair, LSO continued with call light in reach and RN aware. Of not e, significant improvement in HR repsonse to mobility today's date with max 111 during ambul ation. Precautions Spinal Precautions: Lumbar (LSO OOB) Cardiac Precautions: Sternal Other Precautions: fall precautions, monitor O2 Cognition Overall Cognitive Status: Within Functional Limits Orientation Level: Oriented Oriented: x 4 Comments: poor compliance with sternal precautions, impulsive with movement FUNCTIONAL MOBILITY Transfers Sit to/from Stand: Moderate assist (to arise OR lower), x 2 person Ambulation Weight Bearing Status: WBAT RLE, WBAT LLE Maximal Ambulation Distance (feet): 200ft, 120ft, 30ft Total Ambulation Distance (feet): 350ft Ambulation Assistance: Minimal assist, X2, Safety concerns Distance limited by?: Patient's ability Pattern: Alternating, Right swing foot passes stance foot, Left swing foot passes stance fo ot, Right step height adequate, Left step height adequate, Wide base, Forward flexed (contin uous cueing to avoid wb through scap depression) Assistive Device: Walker high platform Activity Tolerance: Patient limited by fatigue, Patient limited by pain Nurse Made Aware: BETTIE gilman Safety Devices in Place: Yes Type of Devices: (call light in reach) Restraints Initially in Place: No Pt denying pain at rest, increases to 2/10 at chest incision during ambulation with RN awar e and pain plan in place. UE in supported position upon PT departure in attempt to alleviate discomfort. Education Completed: Education Topics: [] Rationale for PT [] PT POC [] DC planning [] Precautions [] Exercises [] Bed mobility [] Transfer training with hand placement [] Gait training [] Stair training [] Use of gait belt [] Other Completed with: [] Patient [] Spouse [] Significant other [] Family [] Ca regiver [] Other Completed by: [] Verbal education [] Demonstration [] Handout [] Other: Response to Education: [x] Stated Understanding [x] Reinforcement necessary [] Returned demonstration [] Demonstrated understanding [] No evidence of learning [] Refused Pre/Peak/Post Position BP Pulse rate pre sitting 107/76 87 peak amb 76-111 post sitting 135/65 79 onver anna Transaction, Provider Unknown - 05/18/2018 8:58 AM PDT Pharmacy Note by Jeremy Crow RPH at 05/18/18857 Author: Jeremy Crow RPH Service: Pharmacy Author Type: Pharmacist Filed: 05/18/18857 Date of Service: 05/18/18857 Status: Signed Brake Rider: Jeremy Crow RPH (Pharmacist) Aminoglycoside Monitoring Current Dose: Gentamicin 80 mg IV Q8H Indication: Synergy for enterococcal infection Serum creatinine increased today: 0.9 mg/dL 05/18/2018 Due to increase in serum creatinine, will order levels today. Will order trough level today at 1330 (30 minutes prior to 1400 dose) and peak level at 150 0 (30 minutes after 1400 dose infuses). Goal trough < 1, goal peak 3-5 Lyn Ngo MD - 05/18/2018 8:47 AM PDT Progress Notes by Lyn Maldonado MD at 05/18/18846 Author: Lyn Maldonado MD Service: Infectious Disease Author Type: Physician Filed: 05/18/18921 Date of Service: 05/18/18846 Status: Signed Brake Rider: Lyn Maldonado MD (Physician) [facility] Service: Infectious Disease Progress Note Hospital Day: LOS: 14 days Post-Op Day: 2 Days Post-Op SUBJECTIVE Patient Summary: Re: Enterococcus faecalis bacteremia L4-5 diskitis/osteomyelitis Aortic valve endocarditis Pseudomonas bacteriuria Chart reviewed. Assumed ID care from Dr. Ruano on 05/14. 05/13: CT surgery consulted; Dr. Vergara plans tissue valve AVR for 05/16. 05/14: Cardiac cath; no lesions requiring intervention 05/16 - AVR with #23 Magna valve. AV vegetation > 1 cm. Transferred to ICU post-op Events Overnight: Went into A fib with RVR overnight. Amiodarone given. Converted t o NSR with PACs. Describes chest pain as incisional. No dyspnea Back pain continues to improve; no new weakness or numbness Introducer d/c'd No bowel movement yet; no nausea, vomiting No tinnitus, hearing issues No pruritus or new skin rash Renal function stable Scheduled Medications amiodarone 400 mg Oral TID ampicillin 2 g Intravenous Q4H ascorbic acid 500 mg Oral Daily aspirin 81 mg Oral Nightly atorvastatin 40 mg Oral Nightly docusate sodium 100 mg Oral BID DULoxetine 60 mg Oral Daily famotidine 20 mg Oral BID Or famotidine 20 mg Intravenous BID ferrous sulfate (65 FE) 65 mg of iron Oral BID WC gabapentin 300 mg Oral TID gentamicin 1 mg/kg (Adjusted) Intravenous Q8H magnesium hydroxide 30 mL Oral Daily metoprolol 25 mg Oral BID nicotine 1 patch Transdermal Daily sodium chloride 10 mL Intravenous 2 times per day Continuous Infusions dextrose 5 % and 0.45 % NaCl 62 mL/hr at 05/17/18 2000 insulin regular 1 unit/mL 1.8 Units/hr (05/18/18 0836) PRN Medications acetaminophen OR acetaminophen, aluminum-magnesium hydroxide-simethicone, amiodarone IV bolus, bisacodyl, dextrose, dextrose, HYDROmorphone OR HYDROmorphone, insulin regular 1 unit/mL, magnesium sulfate OR magnesium sulfate OR magnesium sulfate, melatonin, on dansetron, oxyCODONE OR oxyCODONE, polyethylene glycol, potassium OR potassium OR* * potassium OR potassium chloride OR potassium chloride OR potassium chloride, s jacinto lock IV - prn tolerating PO fluid AND sodium chloride, sodium chloride, sodium sachi sphate OBJECTIVE Vital Signs: BP 137/73 (BP Location: Left upper arm) | Pulse 93 | Temp 97.6 F (36.4 C) (Oral) | R skylar 18 | Ht 1.753 m (5' 9") | Wt 112.9 kg (248 lb 14.4 oz) | SpO2 94% | BMI 36.76 kg/m Temp: [97.6 F (36.4 C)-99.5 F (37.5 C)] 97.6 F (36.4 C) (05/18 727) BP: (75-180)/(51-83) 137/73 (05/18 727) Heart Rate: [84-144] 93 (05/18 727) Resp: [8-33] 18 (05/18 727) SpO2: [91 %-96 %] 94 % (05/18 727) Weight: [112.9 kg (248 lb 14.4 oz)] 112.9 kg (248 lb 14.4 oz) (05/18 559) Physical Exam Vital signs have been reviewed Gen.: Pleasant male, not in acute distress HEENT: Normocephalic. Anicteric sclera. No conjunctival lesions. No nasal mucosal lesions. Moist oral mucosa. Missing teeth. Supple neck with no cervical lymphadenopathy Lungs: No adventitious breath sounds Wound VAC over sternal wound Cardiovascular: Normal rate. Regular rhythm. No murmur Lungs: No adventitious breath sounds [address] Abdomen: No distention. Soft. No tenderness or palpable masses Skin: No rash Musculoskeletal: No inflamed looking joints Neurologic: Oriented 3. Motor strength intact upper and lower extremities Psychiatric: Cooperative for the clinical evaluation No peripheral signs of infective endocarditis Urethral catheter in place - clear, yellow urine DATA CBC: Lab Results Component Value Date WBC 14.87 (H) 05/18/2018 RBC 3.56 (L) 05/18/2018 HGB 8.1 (L) 05/18/2018 HCT 25.1 (L) 05/18/2018 MCV 70.3 (L) 05/18/2018 MCH 22.6 (L) 05/18/2018 MCHC 32.2 05/18/2018 RDW 53.8 (H) 05/18/2018 PLT 134 (L) 05/18/2018 MPV 9.1 05/18/2018 DIFFTYPE AUTOMATED 05/17/2018 WBC: Lab Results Component Value Date WBC 14.87 (H) 05/18/2018 NEUTROABS 9.87 (H) 05/17/2018 LYMPHSABS 1.26 05/17/2018 LYMPHOPCT 10.31 05/17/2018 MONOPCT 7.84 05/17/2018 EOSABS 0.05 05/17/2018 EOSPCT 0.42 05/17/2018 BASOSABS 0.06 05/17/2018 BASOPCT 0.50 05/17/2018 PLTEST ADEQUATE 05/17/2018 CMP: Lab Results Component Value Date NA 131 (L) 05/18/2018 K 4.7 05/18/2018 K 4.8 05/16/2018 CL 99 05/18/2018 CO2 23 05/18/2018 ANIONGAP 14 05/18/2018 GLUF 116 (H) 05/18/2018 BUN 20 05/18/2018 CREATININE 0.9 05/18/2018 BCR 22 05/18/2018 CA 8.0 (L) 05/18/2018 PROT 7.3 05/04/2018 ALB 2.7 (L) 05/04/2018 GLOB 4.5 05/04/2018 BILITOT 0.5 05/04/2018 ALP 103 05/04/2018 AST 17 05/04/2018 ALT 12 05/04/2018 EGFR >60 05/18/2018 Component Latest Ref Rng & Units 05/05/2018 05/17/2018 4:11 AM 3:05 AM HEMOGLOBIN A1C 4.0 - 6.0 % 6.0 5.4 ESTIMATED AVG GLUCOSE mg/dL 126 108 Lab Results Component Value Date CRP 1.5 (H) 05/07/2018 Lab Results Component Value Date ESR 55 (H) 05/07/2018 Microbiology data reviewed Radiology data: CXR Impression 1. Stable cardiomegaly and sternal wires 2. Removal of the left IJ Cordis, without cardiopulmonary change LEM LIST Principal Problem: Infective endocarditis of aortic valve Active Problems: Type 2 diabetes mellitus without complication, with long-term current use of insulin ([facility] ) Hypoglycemia Suicide attempt by adequate means ([facility]) Benign essential hypertension Polycythemia Urinary retention Chronic bilateral thoracic back pain Current every day smoker Acute cystitis without hematuria Infective discitis Osteomyelitis of lumbar spine (HCC) ASSESSMENT & PLAN 1. Lumbar spinal discitis and osteomyelitis of L4-L5 Likely Enterococcal. Pain is improving. Covered by ampicillin and gentamicin. Continue to monitor gent levels. Goal trough < 1, goal peak 3-[address] Hoffman previously; Neurosurgery note on 05/09: Wear LSO brace when up and around but off in bed. He may still need surgical stabilization down the road depending on his cl inical course. 2. Pseudomonas urinary tract infection Gentamicin covers this. On traditional dosing. D/c urethral catheter when feasible 3. Subacute [place] Aortic valve endocarditis secondary to E faecalis s/p AVR on 05/16. Continue ampicillin 2 g IV q4 and gentamicin synergy. Appreciate Pharmacy assistance with d osing. PICC placement requested 6 weeks of IV antibiotic from 05/10/18, I.e. Antibiotic stop date June 21, 2018 Will monitor gent levels. Goal trough < 1, goal peak 3-5 Monitor daily kidney function Dental evaluation - outpatient Leukocytosis - may be reactive post-op - monitor 4. Type II diabetes 5. Suicidal attempt. Evaluated by Psychiatry. No suicidal ideations currently 6. Left ankle soft tissue infection. No abscess. Antibiotic as above. 7. Monitoring toxicity of high risk medication Pt to obtain baseline audiometry test. Monitor kidney function. Case discussed with patient's nurse Code Status: Full Code LYN MALDONADO MD 05/18/2018 onversion Katz saction, Provider Unknown - 05/18/2018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 after th at. The patient was sent to a rehabilitation facility. He was at [facility], where his course was complicated with what appears to have been a urinary tract infection. The patient reports he had symptoms including pain in urination. He states that he was teste d for urinary tract infection he was found to have a urinary tract infection. He states that he received antibiotic therapy for this however his symptoms do not improve. He believes he was treated for 7 days. He then developed urinary retention. He had a Vizcaino catheter placed . He was sent for urology evaluation. His catheter was eventually removed by urology. Subsequently, the patient developed back pain. Back pain is located in the lower back, nonr adiating, and has been progressive for the last couple months. The patient has been afebrile but he complains of sweating and chills. The patient states that he was evaluated for this and that he was going to have an MRI done however this did not take place. The patient presented now to the hospital with suicidal attempt. He presented to [facility] with an overdose of insulin, a thousand units of Humalog and a thousand units o f Lantus. The patient was transferred to [facility] intensive care unit for monitorization and management. In view of the patient's back pain, he was evaluated with x-rays of the lumbar spine that showed ill-defined margins of the inferior endplate of L4 p ossibly related to fracture deformity with bony resorption versus infectious process. MRI wa s recommended and the patient underwent MRI of the lumbar spine with and without contrast th at revealed endplate destruction with abnormal edema within the L4-L5 vertebral bodies with peripheral enhancement in the disc space consistent with discitis and osteomyelitis. The patient was also found to have a urinary tract infection upon admission, with a urine c ulture revealing Pseudomonas infection. The patient was started on intravenous Zosyn on 04/20 04/06, then changed to ciprofloxacin per mouth and today changed to intravenous cefepime agai n. Finally, the patient had a CT of the lumbar spine without contrast that confirmed evidenc e of osseous erosion of the L4-L5 endplates." Eventually pt was noted to have BCX positive for E. Fecalis and a CLAUDIA ordered for suspected subacute endocarditis revealed vegetations on the aortic valve. Cardiothoracic surgery was consulted and AVR performed on 05/16 ICU Timeline: - 05/16: S/p AVR. - HD stable, NSR with occ PVC, on minimal jayjay drip - .UOP 621 mL over night, CT 10 mL overnight OBJECTIVE: Vital Signs: BP 100/60 | Pulse 94 | Temp 99.3 F (37.4 C) (Bladder) | Resp (!) 33 | Ht 1.753 m (5 ' 9") | Wt 102.5 kg (225 lb 15.5 oz) | SpO2 94% | BMI 33.37 kg/m EXAM GEN: extubated, sitting up in chair, NAD NEURO: PERRLA, EOMI, no facial asymmetry, moves all extremities well. GCS 15 HEENT: sclerae clear, nonicteric, oral mmm, pink, no exudates NECK: supple, trachea midline CV: RRR, S1/S2, no murmur, rub or gallop, peripheral pulses palpable, cap refill brisk LUNGS: clear b/l, no wheezing, rales or rhonchi, symmetric chest expansion, even/unlabored respirations ABD: soft, nondistended, nontender to palpation, no masses, no hepatosplenomegaly EXTR: no edema, clubbing or cyanosis SKIN: Surgical incision noted with chest tube in dressing, skin warm, dry, no rash or mottl ing; no e/o skin breakdown over the occiput, scapulae, elbows, sacrum or heels LINES/TUBES:Lt IJ introducer, Lt radial a line and CT DATA Recent Labs Lab 05/17/18 0305 05/16/18 1226 05/16/18 1111 05/16/18 0327 WBC 12.20* 20.46* -- -- 7.00 RBC 3.86* 5.71* -- -- 6.10* HGB 8.6* 12.5* 9.9* < > 13.6 HCT 26.9* 40.0 29* < > 41.9 MCV 69.7* 70.0* -- -- 68.6* MCH 22.3* 21.9* -- -- 22.2* MCHC 32.0 31.3* -- -- 32.4 RDW 53.4* 52.5 -- -- 53.8* PLT 162 164 -- -- 167 MPV 8.2 8.4 -- -- 8.7 NEUTROABS 9.87* 16.38* -- -- 4.09 LYMPHSABS 1.26 2.88 -- -- 2.25 MONOSABS 0.96* 0.84* -- -- 0.37 BASOSABS 0.06 0.11* -- -- 0.07 EOSABS 0.05 0.25 -- -- 0.23 MORPH 2+ 2+ -- -- 2+ < > = values in this interval not displayed. Recent Labs Lab 05/17/18 0305 05/16/18 2349 05/16/18 1934 05/16/18 1226 05/16/18 0327 05/15/18 0351 05/14/18 0424 NA 140 -- -- -- 143 -- 139 139 138 K 4.6 4.6 4.2 < > 5.1* < > 4.4 4.2 3.9 CL 109 -- -- -- 112* -- 105 104 104 CO2 23 -- -- -- 24 -- 25 26 25 ANIONGAP 13 -- -- -- 12 -- 13 13 13 GLUF 121* -- -- -- 134* -- 107* 99 112* BUN 13 -- -- -- 11 -- 11 8 7* CREATININE 0.60* -- -- -- 0.65* -- 0.6* 0.6* 0.5* BCR 21 -- -- -- 17 -- 18 13 14 CA 7.3* -- -- -- 7.6* -- 8.0* 8.2* 8.2* EGFR >60 -- -- -- >60 -- >60 >60 >60 PHOS -- -- -- -- -- -- 3.8 4.5 4.4 MG 2.1 -- -- -- 2.7* -- 1.8 1.9 1.8 < > = values in this interval not displayed. IMAGING Echo Claudia Result Date: 05/12/2018 1. Overall left ventricular systolic function is normal with, an EF between 60 - 65 %. 2. T here is [id number], eccentric aortic regurgitation. 3. Mild aortic stenosis present. 4 . Evidence of mobile vegetations on the non-coronary (1.2x0.9 cm) and right coronary (1.0x0. 9 cm) cusps. 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 Continue antibiotics a s per ID. - Acute cystitis with pseudomonas: On gentamycin as per ID - Discitis: Conservative management as per NSx. -IDDM-2: On endotool currently, transition when stable. - Post operative management per CTS (chest tubes, pacer wires, gtt management, anticoagulat ion, transfusion) - Ambulate, PT/OT, IS Disposition: Per cardiothoracic surgery Code Status: Full Code *Please bill 30 minutes of critical care time spent evaluating the patient, reviewing the d vincent and formulating a plan exclusive of all other procedures. CARLOS Delaney 05/17/2018 6:50 AM onversion Trans action, Provider Unknown - 05/17/2018 6:49 AM PDT Nurse Progress Note by Domi Guillen RN at 05/17/18648 Author: Domi Guillen RN Service: Associate Director Of Sales Author Type: Registered Nurse Filed: 05/17/1851 Date of Service: 05/17/18648 Status: Signed Brake Rider: Domi Guillen RN (Registered Nurse) [phone] end of shift audit competed. Restraints:not applicable, Blood admin:none given, Protocols followed:post open heart activ ity, electrolye, Parameter medications:hemodynamic medication titrations followed, Signed an d held orders:checked, none to release, Care Plans:in place with current end date relevant t o pt diagnosis, Other Parameter medications in 24 hrs:pain medication per orders, Flu Vaccin e:out of season DOMI GUILLEN onver anna Transaction, Provider Unknown - 05/16/2018 7:34 PM PDT Nurse Progress Note by Yarelis Granados RN at 05/16/18 1934 Author: Yarelis Granados RN Service: (none) Author Type: Registered Nurse Filed: 05/16/181933 Date of Service: 05/16/181933 Status: Addendum Brake Rider: Yarelis Granados RN (Registered Nurse) Related Notes: Original Note by Yarelis Granados RN (Registered Nurse) filed at 05/16/181933 12 hour chart check complete onver anna Transaction, Provider Unknown - 05/16/2018 4:37 PM PDT Nurse Progress Note by Yarelis Granados RN at 05/16/18 1637 Author: Yarelis Granados RN Service: (none) Author Type: Registered Nurse Filed: 05/16/18 1642 Date of Service: 05/16/18 163 Status: Signed Brake Rider: Yarelis Granados RN (Registered Nurse) Pt to ICU room 06135 via bed with OR staff at approx 1212. Report received from OR staff an d care assumed. Pt with increased CT output, Dr. Vergara updated multiple times (see provide r notification flowsheet). 1450- Sedation holiday. Pt follows commands, placed on CPAP, triggered apnea ventilation. W ill try SBT when pt more awake. 1550- Pt more alert, follows commands, able to lift head from bed. Placed on CPAP ventilati on. 1630- ABG completed, Dr. Simon to bedside to assess for readiness of extubation. Received order to extubate. 1635- Pt extubated to room air, pt able to verbalize name after extubation. aylan Broussard Chaplain - 05/16/2018 11:50 AM PDT Progress Notes by Jaylan Lechuga at 05/16/18 1150 Author: Jaylan Lechuga Service: (none) Author Type: Filed: 05/16/18 1151 Date of Service: 05/16/18 1150 Status: Signed Brake Rider: Jaylan Lechuga () Pt came of pump at 11:35 am. No family present. aylan Lechuga Chaplain - 05/16/2018 9:14 AM PDTFormatting of this note might be different from the origi nal. Progress Notes by Jaylan Lechuga at 05/16/18913 Author: Jaylan Lechuga Service: (none) Author Type: Wire Stripping Machine Operator Filed: 05/16/18914 Date of Service: 05/16/18913 Status: Signed Brake Rider: Jaylan Lechuga () Pt went on pump at 8:55 am no family present. onversion Katz saction, Provider Unknown - 05/16/2018 8:52 AM PDTFormatting of this note might be differen t from the original. Pharmacy Note by Jeremy Crow RPH at 05/16/18851 Author: Jeremy Crow RPH Service: Pharmacy Author Type: Pharmacist Filed: 05/16/18851 Date of Service: 05/16/18851 Status: Signed Brake Rider: Jeremy Crow RPH (Pharmacist) Aminoglycoside Monitoring Current Dose: Gentamicin 80 mg IV Q8H Indication: Synergy for enterococcal infection Serum creatinine stable: 0.6 mg/dL 05/15/2018 Will continue current regimen of 80 mg IV Q8H Jeremy Crow PharmD Jaylan White Chaplain - 05/16/2018 7:17 AM PDT Progress Notes by Jaylan Lechuga at 05/16/18716 Author: Jaylan Lechuga Service: (none) Author Type: Filed: 05/16/18719 Date of Service: 05/16/18716 Status: Signed Brake Rider: Jaylan Lechuga () I visited with José Miguel before he went into surgery. He reports he will have no family presen t while he is in surgery. I assured him he will be supported by chaplains and the medical st [facility] that seemed to bring him some relief. I offered prayer which he gladly accepted. onversion Katz saction, Provider Unknown - 05/16/2018 5:31 AM PDTFormatting of this note might be differen t from the original. Nurse Progress Note by Scarlet Garcia RN at 05/16/18530 Author: Scarlet Garcia RN Service: (none) Author Type: Registered Nurse Filed: 05/16/18531 Date of Service: 05/16/18530 Status: Signed Brake Rider: Scarlet Garcia RN (Registered Nurse) Pt resting; VSS overnight. NPO since midnight, pulses marked, hibiclense x2, 2 IV sites ma intained, abx continue. WCM. 24 hr chart check complete. onver anna Transaction, Provider Unknown - 05/15/2018 2:13 PM PDT Nurse Progress Note by Yarelis Granados RN at 05/15/18 1413 Author: Yarelis Granados RN Service: (none) Author Type: Registered Nurse Filed: 05/15/18 1415 Date of Service: 05/15/18 141 Status: Signed Brake Rider: Yarelis Granados RN (Registered Nurse) Open heart surgery pamphlet given to patient and reviewed. What to expect post-op and pre o p teaching completed, all questions answered. Pt to watch pre op video later today. onver anna Transaction, Provider Unknown - 05/15/2018 12:57 PM PDT Pharmacy Note by Khadra Chisholm RPH at 05/15/18 1257 Author: Khadra Chisholm RPH Service: Pharmacy Author Type: Pharmacist Filed: 05/15/18 1257 Date of Service: 05/15/18 1257 Status: Signed Brake Rider: Khadra Chisholm RPH (Pharmacist) Aminoglycoside Monitoring Current Dose: Gentamicin 80 mg IV Q8H Indication: Synergy for enterococcal infection Serum creatinine stable: 0.6 mg/dL 05/15/2018 Will continue current regimen of 80 mg IV Q8H Pharm. LalaD. onver anna Transaction, Provider Unknown - 05/15/2018 11:02 AM PDT Therapy Progress Note by Teri Hough PT at 05/15/18 1102 Author: Teri Hough PT Service: (none) Author Type: Physical Therapist Filed: 05/15/18 9474 Date of Service: 05/15/18 110 Status: Signed Brake Rider: Teri Hough PT (Physical Therapist) PHYSICAL THERAPY TREATMENT NOTE PT Received On: 05/15/18 Reason for Treatment: Other (comment) (intentional overdose, AVR scheduled 05/16) Requires PT Follow Up: Yes Follow up PT Only?: Yes (will require re-eval s/p AVR 05/16) Focus for Next Treatment: (Re-eval) Assistance Required: 1 person Furnace Keeper Needed: No Recommendations: SNF Equipment Recommended: (TBD) Barriers to Discharge: Cognitive Deficits Impacting Functional [place], Physical Defic its Impacting Functional [place], Self-care Deficits Impacting Functional [facility] [facility], Home Design (see comment), Pain Recommendation Comments: Pt continues with limitations for mobility 2/2 lumbar pain with an ticipated further assistance required for mobility following AVR 05/16 with sternal precautio ns in place. Plan for re-assessment post op. Plan Treatment/Interventions: Continue per Primary PT POC Progress: Progressing toward goals PT Frequency: 3-5x/wk, 5-7x/wk, Once per day Summary Comments: Pt received supine in bed requesting PT to aide in mobility. Noted ongoing limita tions for movement due to severe back pain, however significantly increased efficacy of LE p lacement during limb advancement and foot flat contact achieved in stance LLE. Pt demonstrat ing ongoing significant reliance on UE to mobilize OOB and transition to stance indicating n eed for ongoing PT following AVR on 05/16. Pt returned end of session to upright in bedside c hair donning LSO with call light in reach, all needs met and RN aware. Precautions Spinal Precautions: Lumbar (LSO OOB) Other Precautions: fall precautions, LSO OOB, monitor bp, painful LLE w/ amb Cognition Overall Cognitive Status: Within Functional Limits Orientation Level: Oriented Oriented: x 4 FUNCTIONAL MOBILITY Bed Mobility Rolling: Standby assist, Verbal instruction (painful this date) Sidelying to Sit: Mod assist (BLEs OOB or trunk to upright) Scooting : Standby assist Transfers Sit to/from Stand: Standby assist, Verbal instruction Bed to/from Chair: Standby assist, Verbal instruction Ambulation Weight Bearing Status: WBAT RLE, WBAT LLE Maximal Ambulation Distance (feet): 100ft, 50ftx 3, 25ft Total Ambulation Distance (feet): 275ft Ambulation Assistance: Standby assist, Verbal instruction Distance limited by?: Patient's ability (severe pain) Pattern: Alternating, Decreased leighton, Antalgic, Forward flexed (equalized step length, f oot flat in stance) Assistive Device: Walker front wheeled Activity Tolerance: Patient limited by pain Nurse Made Aware: BETTIE Santoyo aware Safety Devices in Place: Yes Type of Devices: (call light in reach) Restraints Initially in Place: No The patient endorsed ongoing lumbar pain noting "severe" in sitting and limiting ambulation ; no attempt to rate multiple prompts on VAS with pt refusing ice pack application or need f or further pain medication. Education Completed: Education Topics: [x] Rationale for PT [] PT POC [] DC planning [x] Precautions [] Exercises [x] Bed mobility [x] Transfer training with hand placement [x] Gait training [] Stair training [x] Use of gait belt [x] Other: attempted transfers without UE use in prep for sternal precautions Completed with: [x] Patient [] Spouse [] Significant other [] Family [] C aregiver [] Other Completed by: [x] Verbal education [x] Demonstration [] Handout [] Other: Response to Education: [x] Stated Understanding [x] Reinforcement necessary [] Returned demonstration [] Demonstrated understanding [] No evidence of learning [] Refused Lyn Ngo MD - 05/15/2018 9:42 AM PDT Progress Notes by Lyn Maldonado MD at 05/15/18 0916 Author: Lyn Maldonado MD Service: Infectious Disease Author Type: Physician Filed: 05/15/18 0950 Date of Service: 05/15/18941 Status: Signed Brake Rider: Lyn Maldonado MD (Physician) [facility] Service: Infectious Disease Progress Note Hospital Day: LOS: 11 days Post-Op Day: * No surgery date entered * SUBJECTIVE Patient Summary: Re: Enterococcus faecalis bacteremia L4-5 diskitis/osteomyelitis Aortic valve endocarditis Pseudomonas bacteriuria Chart reviewed. Assumed ID care from Dr. Ruano on 05/13: CT surgery consulted; Dr. Vergara plans tissue valve AVR for 05/14: Cardiac cath; no lesions requiring intervention Events Overnight: Afebrile, hemodynamically stable. No reported issues overnight. No chills/sweats No chest pain, palpitations, cough, dyspnea Back pain with improving severity - good pain control. No worsening peripheral sensory álvaro ropathy; no new weakness No dysuria Had constipation - relieved; no diarrhea No tinnitus, hearing loss No pruritus, new skin lesions Scheduled Medications amLODIPine 5 mg Oral Daily ampicillin 2 g Intravenous Q4H aspirin 81 mg Oral Daily with breakfast diclofenac 2 g Topical 4x Daily docusate sodium 100 mg Oral BID DULoxetine 60 mg Oral Daily enoxaparin 40 mg Subcutaneous Q24H gabapentin 300 mg Oral TID gentamicin 1 mg/kg (Adjusted) Intravenous Q8H insulin glargine 10 Units Subcutaneous Nightly insulin lispro (human) 0-10 Units Subcutaneous TID AC insulin lispro (human) 0-5 Units Subcutaneous Nightly Lidocaine 1 patch Transdermal Daily lidocaine 1 mL Infiltration Once losartan 25 mg Oral Daily nicotine 1 patch Transdermal Daily sodium chloride 10 mL Intravenous 2 times per day Continuous Infusions sodium chloride (IV) 110 mL/hr at 05/15/18 0100 PRN Medications acetaminophen OR acetaminophen, aluminum-magnesium hydroxide-simethicone, atropine sulf ate, carboxymethylcellulose, cyclobenzaprine, dextrose, fentaNYL, glucagon, glucagon, hydrAL AZINE OR hydrALAZINE, ketorolac, labetalol, lactulose, melatonin, midazolam, nitroGLYCER IN, nystatin, nystatin, ondansetron OR ondansetron, petrolatum, polyethylene glycol, sod ium chloride (bolus), sodium chloride 0.9 %, sodium chloride, traMADol, zolpidem OBJECTIVE Vital Signs: BP 159/87 (BP Location: Left upper arm) | Pulse 80 | Temp 97.4 F (36.3 C) (Oral) | R skylar 18 | Ht 1.753 m (5' 9.02") | Wt 102.8 kg (226 lb 10.1 oz) | SpO2 97% | BMI 33.45 kg/ m Temp: [97.4 F (36.3 C)-98.3 F (36.8 C)] 97.4 F (36.3 C) (05/15 758) BP: (130-185)/(73-100) 159/87 (05/15 758) Heart Rate: [68-88] 80 (05/15 758) Resp: [16-20] 18 (05/15 758) SpO2: [97 %-99 %] 97 % (05/15 758) Weight: [102.8 kg (226 lb 10.1 oz)] 102.8 kg (226 lb 10.1 oz) (05/15 530) Physical Exam Vital signs have been reviewed Gen.: Pleasant male, not in acute distress HEENT: Normocephalic. Anicteric sclera. No conjunctival lesions. No nasal mucosal lesions. Moist oral mucosa. Missing teeth. Supple neck with no cervical lymphadenopathy Lungs: No adventitious breath sounds Cardiovascular: Normal rate. Regular rhythm. Grade 2/6 systolic murmur at the cardiac base Abdomen: No distention. Soft. No tenderness or palpable masses Skin: No rash Musculoskeletal: No inflamed looking joints Neurologic: Oriented 3. Motor strength intact upper and lower extremities Psychiatric: Cooperative for the clinical evaluation No peripheral signs of infective endocarditis DATA CBC: Lab Results Component Value Date WBC 6.21 05/15/2018 RBC 5.86 (H) 05/15/2018 HGB 13.1 (L) 05/15/2018 HCT 40.0 05/15/2018 MCV 68.3 (L) 05/15/2018 MCH 22.4 (L) 05/15/2018 MCHC 32.8 05/15/2018 RDW 51.6 05/15/2018 PLT 167 05/15/2018 MPV 8.7 05/15/2018 DIFFTYPE AUTOMATED 05/15/2018 WBC: Lab Results Component Value Date WBC 6.21 05/15/2018 NEUTROABS 3.73 05/15/2018 LYMPHSABS 1.87 05/15/2018 LYMPHOPCT 30.15 05/15/2018 MONOPCT 5.50 05/15/2018 EOSABS 0.20 05/15/2018 EOSPCT 3.16 05/15/2018 BASOSABS 0.07 05/15/2018 BASOPCT 1.09 05/15/2018 PLTEST ADEQUATE 05/15/2018 CMP: Lab Results Component Value Date NA 139 05/15/2018 K 4.2 05/15/2018 CL 104 05/15/2018 CO2 26 05/15/2018 ANIONGAP 13 05/15/2018 GLUF 99 05/15/2018 BUN 8 05/15/2018 CREATININE 0.6 (L) 05/15/2018 BCR 13 05/15/2018 CA 8.2 (L) 05/15/2018 PROT 7.3 05/04/2018 ALB 2.7 (L) 05/04/2018 GLOB 4.5 05/04/2018 BILITOT 0.5 05/04/2018 ALP 103 05/04/2018 AST 17 05/04/2018 ALT 12 05/04/2018 EGFR >60 05/15/2018 Lab Results Component Value Date ESR 55 (H) 05/07/2018 Lab Results Component Value Date CRP 1.5 (H) 05/07/2018 Component Latest Ref Rng & Units 05/12/2018 7:38 AM GENTAMICIN, TROUGH <2.0 ug/mL 1.2 Component Latest Ref Rng & Units 05/12/2018 3:19 AM GENTAMICIN,PEAK 5 - 10 ug/mL 3.2 (L) Microbiology Results (last 14 days) Procedure Component Value Units Date/Time Blood culture [[id number]] Collected: 05/07/18 1705 Order Status: Completed Lab Status: Final result Updated: 05/13/18 0621 Specimen: Blood from Blood Specimen Description BLOOD CULTURE NO GROWTH 6 DAYS Blood Culture Set 1 [[id number]] Collected: 05/11/18922 Order Status: Completed Lab Status: Preliminary result Updated: 05/12/181547 Specimen: Blood from Blood, peripheral draw Specimen Description BLOOD, PERIPHERAL DRAW SPECIAL REQUESTS LEFT FOREARM CULTURE NO GROWTH AT THIS TIME Blood Culture Set 2 [[id number]] Collected: 05/11/18922 Order Status: Completed Lab Status: Preliminary result Updated: 08/23/18 1548 Specimen: Blood from Blood, peripheral draw Specimen Description BLOOD, PERIPHERAL DRAW SPECIAL REQUESTS RAC CULTURE NO GROWTH AT THIS TIME Blood Culture Set 2 [[id number]] (Abnormal) Collected: 05/09/18 0956 Order Status: Completed Lab Status: Final result Updated: 05/12/18 0935 Specimen: Blood from Blood, peripheral draw Specimen Description BLOOD, PERIPHERAL DRAW SPECIAL REQUESTS LEFT FOREARM GRAM STAIN GRAM POSITIVE COCCI GRAM STAIN SEEN IN AEROBIC BOTTLE GRAM STAIN SMEAR RESULTS CALLED TO AND READ BACK BY: GRAM STAIN José RIVERA RN AT 9RP ON 05/10/2018 AT 1733 BY [facility] CULTURE ENTEROCOCCUS FAECALIS (A) Aminoglycosides (except for high-level resistance testing), cephalosporins, clindamycin, and trimethoprim-sulfamethoxazole may appear active in vitro but they are not effective clin ically. GROWTH IN ONE OF TWO BOTTLES (A) TIME TO DETECTION: 1.15 DAYS Multiple specimens received. Refer to organism susceptibility on prior culture. Blood Culture Set 1 [[id number]] (Abnormal) Collected: 05/09/18 0943 Order Status: Completed Lab Status: Final result Updated: 05/12/18 0934 Specimen: Blood from Blood, peripheral draw Specimen Description BLOOD, PERIPHERAL DRAW SPECIAL REQUESTS LEFT HAND GRAM STAIN GRAM POSITIVE COCCI IN CHAINS (A) GRAM STAIN SEEN IN ANAEROBIC BOTTLE GRAM STAIN SMEAR RESULTS CALLED TO AND READ BACK BY: GRAM STAIN DIANA Esquivel RN 9RP 0427 05/10/18 KB CULTURE ENTEROCOCCUS FAECALIS (A) Aminoglycosides (except for high-level resistance testing), cephalosporins, clindamycin, and trimethoprim-sulfamethoxazole may appear active in vitro but they are not effective clin ically. GROWTH IN ONE OF TWO BOTTLES (A) TIME TO DETECTION: 0.60 DAYS Culture & Susceptibility ENTEROCOCCUS FAECALIS Antibiotic Sensitivity Microscan Status Ampicillin Sensitive SUSCEPTIBLE Final Method: SURJIT Gentamicin Synergy Resistant RESISTANT Final Method: SURJIT Levofloxacin Resistant RESISTANT Final Method: SURJIT Penicillin G Sensitive SUSCEPTIBLE Final Method: SURJIT Streptomycin Synergy Resistant RESISTANT Final Method: SURJIT Vancomycin Sensitive SUSCEPTIBLE Final Method: SURJIT Blood Culture Set 1 [[id number]] Collected: 05/10/18 1019 Order Status: Completed Lab Status: Preliminary result Updated: 05/11/18 1534 Specimen: Blood from Blood, peripheral draw Specimen Description BLOOD, PERIPHERAL DRAW SPECIAL REQUESTS RAC CULTURE NO GROWTH AT THIS TIME Blood Culture Set 2 [[id number]] Collected: 05/10/18 1020 Order Status: Completed Lab Status: Preliminary result Updated: 05/11/18 1534 Specimen: Blood from Blood, peripheral draw Specimen Description BLOOD, PERIPHERAL DRAW SPECIAL REQUESTS LAC CULTURE NO GROWTH AT THIS TIME Blood Culture Set 2 [[id number]] (Abnormal) Collected: 05/08/18 1129 Order Status: Completed Lab Status: Final result Updated: 05/11/18 0752 Specimen: Blood from Blood Specimen Description BLOOD SPECIAL REQUESTS RT UPPER ARM GRAM STAIN GRAM POSITIVE COCCI IN CHAINS (A) GRAM STAIN SEEN IN ANAEROBIC BOTTLE GRAM STAIN SMEAR RESULTS CALLED TO AND READ BACK BY: GRAM STAIN RIK ON 9RP AT 0800 ON 05/09/2018 GRAM STAIN GRAM POSITIVE COCCI GRAM STAIN SEEN IN AEROBIC BOTTLE CULTURE ENTEROCOCCUS FAECALIS (A) Aminoglycosides (except for high-level resistance testing), cephalosporins, clindamycin, and trimethoprim-sulfamethoxazole may appear active in vitro but they are not effective clin ically. GROWTH IN TWO OF TWO BOTTLES (A) TIME TO DETECTION: 0.78 DAYS Multiple specimens received. Refer to organism susceptibility on prior culture. Blood Culture Set 1 [[id number]] (Abnormal) Collected: 05/08/18 1118 Order Status: Completed Lab Status: Final result Updated: 05/11/18 0750 Specimen: Blood from Blood Specimen Description BLOOD SPECIAL REQUESTS LT FORARM GRAM STAIN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 COLLECTION NOT GIVEN CULTURE 10,000 TO 50,000 CFU/ML PSEUDOMONAS AERUGINOSA (A) Culture & Susceptibility PSEUDOMONAS AERUGINOSA Antibiotic Sensitivity Microscan Status Cefepime Sensitive SUSCEPTIBLE Final Method: SURJIT Ceftazidime Sensitive SUSCEPTIBLE Final Method: SURJIT Ciprofloxacin Sensitive SUSCEPTIBLE Final Method: SURJIT Gentamicin Sensitive SUSCEPTIBLE Final Method: SURJIT Levofloxacin Sensitive SUSCEPTIBLE Final Method: SURJIT Tobramycin Sensitive SUSCEPTIBLE Final Method: SURJIT MRSA by PCR [[id number]] Collected: 05/04/18 1323 Order Status: Completed Lab Status: Final result Updated: 05/04/18 1445 Specimen: Nasopharyngeal from Nasopharyngeal Culture SOURCE NARES(NOSE) MRSA PCR NEGATIVE Comment: Testing performed at [facility];[address] [place] [address];[place] [address] Radiology Data: Lumbar spine X-ray Impression 1. Fracture deformity of the superior endplate of L5 with approximately 50% loss in anter ior height. 2. Ill-defined margins of the inferior endplate of L4 which may relate to fracture deform ity with bony reabsorption, although infectious process could also be consideration. MRI wit h and without contrast could be performed to further evaluate. 3. Mild compression deformity L2 vertebral body. 4. Multilevel degenerative change of the lumbar spine. 5. Bilateral pars defects of L5 on S1. Lumbar spine CT Impression 1. Osseous erosion of the L4-L5 endplates consistent with discitis osteomyelitis. 2. Potential impingement of the right L1, L2 and bilateral L4 nerve root as discussed abo ve. Lumbar spine MRI Impression 1. End plate destruction with abnormal edema within the L4 and L5 vertebral bodies with p eripheral enhancement about the L4-L5 disc space consistent with discitis/osteomyelitis. 2. Multilevel degenerative changes of the lumbar spine as described in detail above. Renal US No hydronephrosis or nephrolithiasis seen bilaterally. 2. Mild splenomegaly. This is of uncertain etiology. L ankle MRI Impression 1. No evidence of Achilles tendinous tear or tendinosis. 2. There is mild tendinosis of the peroneus longus and flexor hallucis longus tendons. 3. No evidence of ligamentous injury of the ankle. 4. Plantar fasciitis. Impression 1. Overall left ventricular systolic function is normal with, an EF between 60 - 65 %. 2. There is mild concentric left ventricular hypertrophy. 3. No regional wall motion abnormalities. 4. The right ventricle is normal in size and function. 5. There is mild aortic valve sclerosis without stenosis. 6. There is trace (physiologic) mitral regurgitation. 7. Pulmonary artery systolic pressure could not be assessed due to the absence of adequate TR jet. 8. There is no pericardial effusion. 9. No definite vegetation visualized. CLAUDIA Impression 1. Overall left ventricular systolic function is normal with, an EF between 60 - 65 %. 2. There is jlsv-gz-jjcbdbyr, eccentric aortic regurgitation. 3. Mild aortic stenosis present. 4. 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 PROBLEM LIST Principal Problem: Infective endocarditis of aortic valve Active Problems: Type 2 diabetes mellitus without complication, with long-term current use of insulin ([facility] ) Hypoglycemia Suicide attempt by adequate means ([facility]) Benign essential hypertension Polycythemia Urinary retention Chronic bilateral thoracic back pain Current every day smoker Acute cystitis without hematuria Infective discitis Osteomyelitis of lumbar spine ([facility]) ASSESSMENT & PLAN 1. Lumbar spinal discitis and osteomyelitis of L4-L5 Likely Enterococcal. Pain is improving. Covered by ampicillin and gentamicin. Continue to monitor gent levels. Goal trough < 1, goal peak 3-5 No repeat ESR, CRP today - will recheck post-op 2. Pseudomonas urinary tract infection Gentamicin will cover. Traditional dosing. 3. Subacute [place] Aortic valve endocarditis sec to E faecalis Pt has 2 large size vegetations and valvular insuficiency. CTS consulted; plan for AVR on 05/16. Continue ampicillin 2 g IV q4 and gentamicin synergy. Appreciate Pharmacy assistance with kayla ranulfo. PICC placement after valve replacement 6 weeks of IV antibiotic from 05/10/18 Will monitor gent levels. Goal trough < 1, goal peak 3-5 Monitor daily kidney function Dental evaluation - outpatient 4. Type II diabetes 5. Suicidal attempt. Evaluated by Psychiatry. 6. Left ankle soft tissue infection. Improving. No abscess. Antibiotic as above. 7. Monitoring toxicity of high risk medication Pt to obtain baseline audiometry test. Monitor kidney function. Code Status: Full Code LYN MALDONADO MD 05/14/2018 onversion Katz saction, Provider Unknown - 05/14/2018 6:51 AM PDTFormatting of this note might be differen t from the original. Nurse Progress Note by Scarlet Garcia RN at 05/14/18 0651 Author: Scarlet Garcia RN Service: (none) Author Type: Registered Nurse Filed: 05/14/18 0651 Date of Service: 05/14/18 0651 Status: Signed Brake Rider: Scarlet Garcia RN (Registered Nurse) Pt resting; no shift events. NPO since midnight. 24 hr chart check complete. Denisha Nina PT - 05/13/2018 3:20 PM PDTFormatting of this note might be different from the [place]. Therapy Progress Note by Denisha Parry PT at 05/13/18 1520 Author: Denisha Parry PT Service: (none) Author Type: Physical Therapist Filed: 05/13/18 1616 Date of Service: 05/13/18 1520 Status: Signed Brake Rider: Denisha Parry PT (Physical Therapist) PHYSICAL THERAPY TREATMENT NOTE PT Received On: 05/13/18 Reason for Treatment: Other (comment) (intentional overdose, AVR scheduled 05/16) Requires PT Follow Up: Yes Follow up PT Only?: No Focus for Next Treatment: (continue practice of sternal precautions to mobilize) Assistance Required: 1 person Recommendations: SNF Equipment Recommended: (TBD) Recommendation Comments: Pt remains limited with mobility 2/2 back pain and deconditioning, now awaiting AVR and will have sternal precautions post-operatively. Anticipate SNF will b e indicated for ongoing rehab subacutely. Plan Treatment/Interventions: Continue per Primary PT POC Progress: Progressing toward goals Summary Comments: Per chart review pt now scheduled for AVR on Wednesday 05/16. Pt resting in bed, eag er to participate in therapy, denies pain at rest. Agreeable to session focused on practice of sternal precautions in light of upcoming AVR. pt educated on sternal precautions and ty pical PT POC and activity recommendations s/p CV surgery. He donned scub pants in supine, P T assisting with LSO. Pt was instructed to practice hugging small pillow with bed height el evated for STS; initially pt attempting to WB thru forearms on FWW and needing MOD A to rise . Eventually with practice and use of momentum he was able to complete with CGA. Pt ambula wes lap around unit w/FWW; again preferring to WB heavily thru UEs. PT was cued with use of imagery to reduce UE force to light touch only ("imagine a cracker under each hand--don't b reak it") which worked well with pt able to progress to light WELL DRILL OPERATOR ROTARY DRILL on FWW to ambulate. Pt wa s assisted into recliner after session with needs and call light placed in reach. See VS in table below. Pt should benefit from continued practice of sternal precautions for bed mobi lity, transfers, and ambulation (consider trial with WELL DRILL OPERATOR ROTARY DRILL on W/C next session to simulate pos t-op) to improve functional mobility as able prior to AVR. Pre/Peak/Post Position BP Pulse rate O2 sats L/min Pain complaint Pain intervention/notes Pre Supine 161/89 81 98 RA Denies pain at rest Peak Post Seated 172/93 97 85 5/10 in low back RN informed; repositioned pt Precautions Spinal Precautions: Lumbar (LSO OOB) Other Precautions: fall precautions, LSO OOB, monitor bp, painful LLE w/ amb Cognition Overall Cognitive Status: Within Functional Limits Orientation Level: Oriented Oriented: x 4 FUNCTIONAL MOBILITY Bed Mobility Rolling: Supervison, Verbal instruction Sidelying to Sit: Mod assist (BLEs OOB or trunk to upright) (pt using UEs to assist; recomm end further practice w/out) Scooting : Standby assist - Transfers Sit to/from Stand: Moderate assist (to arise OR lower), Minimal assist (steadying/contact g uard), Visual instruction, Verbal instruction Bed to/from Chair: Minimal assist (steadying/contact guard) Ambulation Maximal Ambulation Distance (feet): 150 Total Ambulation Distance (feet): 350 Ambulation Assistance: Minimal assist (with focus on decreased UE WBing thru walker) Distance limited by?: Patient's ability Pattern: Alternating, Decreased leighton, Antalgic, Forward flexed Assistive Device: Walker front wheeled (may benefit from trial with w/c to simulate post-op ) THERAPEUTIC EXERCISE Activity Tolerance: Patient limited by fatigue, Patient limited by pain Nurse Made Aware: Yes BETTIE Pascual Safety Devices in Place: (call light/needs in reach, RN aware) Education Completed: Education Topics: [x] Rationale for PT [x] PT POC [x] DC planning [x] Precautions [x] Exercises [x] Bed mobility [x] Transfer training with hand placement [x] Gait training [] Stair training [x] Use of gait belt [x] Other: use of IS (needs one brought to room) Completed with: [x] Patient [] Spouse [] Significant other [] Family [] C aregiver [] Other Completed by: [x] Verbal education [x] Demonstration [] Handout [] Other: Response to Education: [] Stated Understanding [x] Reinforcement necessary [] Returned demonstration [] Demonstrated understanding [] No evidence of learning [] Refused onversion Transaction , Provider Unknown - 05/13/2018 2:33 PM PDT Case Management by BILL Becerril at 05/13/18 2971 Author: BILL Becerril Service: (none) Author Type: Antenna Design Engineer Filed: 05/13/18 8912 Date of Service: 05/13/18 1433 Status: Signed Brake Rider: BILL Becerril (Antenna Design Engineer) 05/13/18 1400 Discharge Planning Evaluation Admitting Diagnosis Suicide Attempt Anticipated Disposition Facility Type [facility] facility [facility] p/c from Luis Miah, PASRR construction representative ([phone] , fax - Eunice porras he assessed Pt yesterday evening for PASRR evaluation as Pt is a positive PASRR due [place] icide attempt and diagnosed depression and anxiety. Luis states Pt has a history of Viole nce in Assisted with three charges of assault in 1989 Pt was supposed to be in correction for life , but was released for unknown reason. Luis explained if he does transfer to Senior Living Facility they need to know what ty pe of individual they are dealing with. Luis requested to be notified ([phone] , fax) if Pt transfers to SNF facility. DCP: Pending placement in [place] - who [place]. DOMI KAT, Antenna Design Engineer [phone] cell onver anna Transaction, Provider Unknown - 05/13/2018 11:30 AM PDT Nurse Progress Note by Eri Richardson RN at 05/13/18 1130 Author: Eri Richardson RN Service: (none) Author Type: Registered Nurse Filed: 05/13/18 1134 Date of Service: 05/13/18 1130 Status: Signed Brake Rider: Eri Richardson RN (Registered Nurse) Per request, will hold PICC placement for now until POC determined with cardiothoracic surg jay. Pt has adequate IV access for continued abx therapy at this time. Please notify PICC RN if pt to be discharged imminently from hospital, will require PICC for manager terminal abx, or if IV access lost and central access required. Thanks. onver anna Transaction, Provider Unknown - 05/13/2018 10:56 AM PDT Case Management by BILL Abbasi at 05/13/18 1056 Author: BILL Abbasi Service: (none) Author Type: Antenna Design Engineer Filed: 05/13/18 1616 Date of Service: 05/13/18 1056 Status: Signed Brake Rider: BILL Abbasi (Antenna Design Engineer) S received referral from BILL Bond CM to [facility]. S identified self to patient, patient agreeable to meet with S . Upon contact, patient immediately informed [facility] that he is interested in accessing counseli services and briefly shared reason for admit in the hospital. We discussed [facility]. Located in [place], [place]. As an accesible resource [place]. At the time of contact, S unable to assist with scheduling an intake as patient discharge instructions are still pending. Patient provided with contact information of facility and i nformed of steps needed to schedule intake (e.g. Phone contact [phone], provide demogra phic info and insurance info to medical laboratory technical officer) Pt shared he is aware of location, attem pted to access services in the past but unable to do so due to transportation barriers. Pt stated that he will have other procedures completed in hospital and would be open to hav e further assistance with scheduling intake if he is unable to proceed with SNF placement. BILL Jennings CM informed of contact. onver anna Gay, Provider Unknown - 05/13/2018 10:05 AM PDT Pharmacy Note by Jeremy Crow RPH at 05/13/18 1005 Author: Jeremy Crow RPH Service: Pharmacy Author Type: Pharmacist Filed: 05/13/18 1005 Date of Service: 05/13/18 1005 Status: Signed Brake Rider: Jeremy Crow RPH (Pharmacist) Aminoglycoside Monitoring Pharmacy Dosing Drug: Gentamicin for synergy SCr stable at 0.5mg/dL Plan per protocol: Maintain current regimen of: 80 mg IV Q 8 Hrs Pharmacy will continue to follow. 05/13/2018 10:04 AM Jeremy Crow Jean Carlos Porter MD - 05/13/2018 9:52 AM PDTFormatting of this note might be differe nt from the original. Progress Notes by Jean Carlos Thao MD at 05/13/1852 Author: Jean Carlos Thao MD Service: Infectious Disease Author Type: Geronimo shah Filed: 05/13/18 1130 Date of Service: 05/13/18951 Status: Signed Brake Rider: Jean Carlos Thao MD (Physician) [facility] Service: Infectious Diseases Progress Note Hospital Day: LOS: 9 days Post-Op Day: * No surgery found * CC: Follow up on bacteremia SUBJECTIVE/OVERNIGHT EVENTS Patient was found to have 2 large vegetations in aortic valve. The patient is afebrile, the patient reports improvement of back pain. Bacteremia is also responding well to therapy. Denies side effects of antibiotics. REVIEW OF SYSTEMS GI: denies diarrhea, Constitutional: denies fever and chills and Integumentary: denies skin rash MEDICATIONS: amLODIPine 5 mg Oral Daily ampicillin 2 g Intravenous Q4H diclofenac 2 g Topical 4x Daily docusate sodium 100 mg Oral BID DULoxetine 60 mg Oral Daily enoxaparin 40 mg Subcutaneous Q24H gabapentin 300 mg Oral TID gentamicin 1 mg/kg (Adjusted) Intravenous Q8H insulin glargine 10 Units Subcutaneous Nightly insulin lispro (human) 0-10 Units Subcutaneous TID AC insulin lispro (human) 0-5 Units Subcutaneous Nightly Lidocaine 1 patch Transdermal Daily losartan 25 mg Oral Daily nicotine 1 patch Transdermal Daily sodium chloride 10 mL Intravenous 2 times per day sodium chloride (IV) 110 mL/hr at 05/12/182000 PRN Medications acetaminophen OR acetaminophen, aluminum-magnesium hydroxide-simethicone, carboxymethyl cellulose, cyclobenzaprine, dextrose, glucagon, glucagon, hydrALAZINE OR hydrALAZINE, ke torolac, labetalol, lactulose, melatonin, nystatin, nystatin, ondansetron OR ondansetron , petrolatum, sodium chloride 0.9 %, sodium chloride, traMADol PHYSICAL EXAM Vital Signs: BP 139/74 (BP Location: Right upper arm) | Pulse 91 | Temp 97.7 F (36.5 C) (Oral) | Resp 19 | Ht 1.753 m (5' 9.02") | Wt 98.6 kg (217 lb 6 oz) | SpO2 96% | BMI 32.09 kg/m Temp (24hrs), Av.9 F (36.6 C), Min:97.6 F (36.4 C), Max:98.2 F (36.8 C) General Appearance: Alert, cooperative, no distress and obese Head: Normocephalic, without obvious abnormality, atraumatic. Lips, mucosa, and tongue normal; dentition normal; no thrush present. Eyes: PERRL, conjunctiva/corneas clear, EOM's intact. Throat: Oropharynx clear without exudates Neck: Supple, symmetrical, trachea midline, no adenopathy; thyroid: no enlargement/tenderness/nodules; no carotid bruit or JVD Back: Symmetric, no curvature, ROM normal, no CVA tenderness Lungs: Clear to auscultation bilaterally, respirations unlabored Chest Wall: No tenderness or deformity Heart: Regular rate and rhythm, S1 and S2 normal, murmurs include systolic murmur II/ located at right upper sternal border without radiation, rub or gallop. Abdomen: Soft, non-tender, bowel sounds active all four quadrants, no masses, no organomegaly Extremities: Extremities normal, atraumatic, no cyanosis or edema. Left ankle medial eryt jayy 4x4 cm improved. Pulses: 2+ and symmetric all extremities Skin: Skin color, texture, turgor normal, no rashes or lesions Lymph nodes: Cervical, supraclavicular, inguinal and axillary nodes normal Neurologic: : normal without focal findings, mental status, speech normal, alert and oriented x3, P ERLA and reflexes normal and symmetric Normal genitalia. No Vizcaino catheter. Venous access: peripheral iv LABS: All labs reviewed. CBC: Lab Results Component Value Date WBC 6.98 05/13/2018 RBC 6.24 (H) 05/13/2018 HGB 13.8 05/13/2018 HCT 42.4 05/13/2018 MCV 67.9 (L) 05/13/2018 MCH 22.1 (L) 05/13/2018 MCHC 32.5 05/13/2018 RDW 51.2 05/13/2018 PLT 169 05/13/2018 MPV 8.6 05/13/2018 DIFFTYPE AUTOMATED 05/13/2018 CMP: Lab Results Component Value Date NA 139 05/13/2018 K 4.0 05/13/2018 CL 104 05/13/2018 CO2 24 05/13/2018 ANIONGAP 15 05/13/2018 GLUF 120 (H) 05/13/2018 BUN 4 (L) 05/13/2018 CREATININE 0.5 (L) 05/13/2018 BCR 8 05/13/2018 CA 8.1 (L) 05/13/2018 PROT 7.3 05/04/2018 ALB 2.7 (L) 05/04/2018 GLOB 4.5 05/04/2018 BILITOT 0.5 05/04/2018 ALP 103 05/04/2018 AST 17 05/04/2018 ALT 12 05/04/2018 EGFR >60 05/13/2018 MICROBIOLOGY Results Procedure Component Value Units Date/Time Blood culture [[id number]] Collected: 05/07/18 1705 Specimen: Blood from Blood Updated: 05/13/18 0621 Specimen Description BLOOD CULTURE NO GROWTH 6 DAYS Blood Culture Set 1 [[id number]] Collected: 05/11/18 0923 Specimen: Blood from Blood, peripheral draw Updated: 05/12/18 1548 Specimen Description BLOOD, PERIPHERAL DRAW SPECIAL REQUESTS LEFT FOREARM CULTURE NO GROWTH AT THIS TIME Blood Culture Set 2 [[id number]] Collected: 05/11/18 0923 Specimen: Blood from Blood, peripheral draw Updated: 05/12/18 1548 Specimen Description BLOOD, PERIPHERAL DRAW SPECIAL REQUESTS RAC CULTURE NO GROWTH AT THIS TIME Blood Culture Set 2 [[id number]] (Abnormal) Collected: 05/09/18 0956 Specimen: Blood from Blood, peripheral draw Updated: 05/12/18 0935 Specimen Description BLOOD, PERIPHERAL DRAW SPECIAL REQUESTS LEFT FOREARM GRAM STAIN GRAM POSITIVE COCCI GRAM STAIN SEEN IN AEROBIC BOTTLE GRAM STAIN SMEAR RESULTS CALLED TO AND READ BACK BY: GRAM STAIN José RIVERA RN AT 9RP ON 05/10/2018 AT 1733 BY [facility] CULTURE ENTEROCOCCUS FAECALIS (A) Aminoglycosides (except for high-level resistance testing), cephalosporins, clindamycin, and trimethoprim-sulfamethoxazole may appear active in vitro but they are not effective cli nically. GROWTH IN ONE OF TWO BOTTLES (A) TIME TO DETECTION: 1.15 DAYS Multiple specimens received. Refer to organism susceptibility on prior culture. Blood Culture Set 1 [[id number]] (Abnormal) (Susceptibility) Collected: 05/09/18 0943 Specimen: Blood from Blood, peripheral draw Updated: 05/12/18 0934 Specimen Description BLOOD, PERIPHERAL DRAW SPECIAL REQUESTS LEFT HAND GRAM STAIN GRAM POSITIVE COCCI IN CHAINS (A) GRAM STAIN SEEN IN ANAEROBIC BOTTLE GRAM STAIN SMEAR RESULTS CALLED TO AND READ BACK BY: GRAM STAIN DIANA H RN 9RP 0427 05/10/18 KB CULTURE ENTEROCOCCUS FAECALIS (A) Aminoglycosides (except for high-level resistance testing), cephalosporins, clindamycin, and trimethoprim-sulfamethoxazole may appear active in vitro but they are not effective cli nically. GROWTH IN ONE OF TWO BOTTLES (A) TIME TO DETECTION: 0.60 DAYS Blood Culture Set 1 [[id number]] Collected: 05/10/18 1019 Specimen: Blood from Blood, peripheral draw Updated: 05/11/18 1534 Specimen Description BLOOD, PERIPHERAL DRAW SPECIAL REQUESTS RAC CULTURE NO GROWTH AT THIS TIME Blood Culture Set 2 [[id number]] Collected: 05/10/18 1020 Specimen: Blood from Blood, peripheral draw Updated: 05/11/18 1534 Specimen Description BLOOD, PERIPHERAL DRAW SPECIAL REQUESTS LAC CULTURE NO GROWTH AT THIS TIME Blood Culture Set 2 [[id number]] (Abnormal) Collected: 05/08/18 1129 Specimen: Blood from Blood Updated: 05/11/18 0752 Specimen Description BLOOD SPECIAL REQUESTS RT UPPER ARM GRAM STAIN GRAM POSITIVE COCCI IN CHAINS (A) GRAM STAIN SEEN IN ANAEROBIC BOTTLE GRAM STAIN SMEAR RESULTS CALLED TO AND READ BACK BY: GRAM STAIN RIK ON 9RP AT 0800 ON 05/09/2018 GRAM STAIN GRAM POSITIVE COCCI GRAM STAIN SEEN IN AEROBIC BOTTLE CULTURE ENTEROCOCCUS FAECALIS (A) Aminoglycosides (except for high-level resistance testing), cephalosporins, clindamycin, and trimethoprim-sulfamethoxazole may appear active in vitro but they are not effective cli nically. GROWTH IN TWO OF TWO BOTTLES (A) TIME TO DETECTION: 0.78 DAYS Multiple specimens received. Refer to organism susceptibility on prior culture. Blood Culture Set 1 [[id number]] (Abnormal) (Susceptibility) Collected: 05/08/18 1118 Specimen: Blood from Blood Updated: 05/11/18 0750 Specimen Description BLOOD SPECIAL REQUESTS LT FORARM GRAM STAIN GRAM POSITIVE COCCI IN CHAINS (A) GRAM STAIN SEEN IN ANAEROBIC BOTTLE GRAM STAIN SMEAR RESULTS CALLED TO AND READ BACK BY: GRAM STAIN EILEEN Linn ON 9RP AT 0520 ON 05/09/2018 [facility] GRAM STAIN GRAM POSITIVE COCCI IN CHAINS (A) GRAM STAIN SEEN IN AEROBIC BOTTLE CULTURE ENTEROCOCCUS FAECALIS (A) Aminoglycosides (except for high-level resistance testing), cephalosporins, clindamycin, and trimethoprim-sulfamethoxazole may appear active in vitro but they are not effective cli nically. GROWTH IN TWO OF TWO BOTTLES (A) TIME TO DETECTION: 0.66 DAYS IMAGING CLAUDIA 05/12/18 CONCLUSIONS 1. Overall left ventricular systolic function is normal with, an EF between 60 - 65 %. 2. There is [id number], eccentric aortic regurgitation. 3. Mild aortic stenosis present. 4. 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 ASSESSMENT & PLAN The patient is a 58 y.o.-year-old male with the following problems: Principal Problem: Suicide attempt by adequate means ([facility]) Active Problems: Type 2 diabetes mellitus without complication, with long-term current use of insulin ([facility] ) Hypoglycemia Benign essential hypertension Polycythemia Urinary retention Chronic bilateral thoracic back pain Current every day smoker Acute cystitis without hematuria Infective endocarditis of aortic valve 1. Lumbar spinal discitis and osteomyelitis of L4-L5 Likely Enterococcal. Pain is improving. Continue ampicillin and gentamicin. Will monitor gent levels. Goal trough < 1, goal peak 3-5 Repeat ESR CRP on 05/14/18, then at 2 week intervals. 2. Pseudomonas urinary tract infection Gentamicin will cover. Traditional dosing. 3. New problem: Subacute [place] Aortic valve endocarditis sec to E faecalis Pt has 2 large size vegetations and valvular insuficiency. CTS consult recommended. May need AVR. Continue ampicillin 2 g iv q4 and gentamicin synergy. Pharmacy to assist with dosing. PICC once blood cultures negative 48h. 6 weeks of IV atbx from 05/10/18 Will monitor gent levels. Goal trough < 1, goal peak 3-5 Monitor daily kidney function 4. Type II diabetes 5. Suicidal attempt. Evaluated by psychiatry. 6. Left ankle soft tissue infection. Improving. No abscess. Atbx as above. 7. Monitoring toxicity of high risk medication Pt to obtain baseline audiometry test. Monitor kidney function. Discussed with Dr. Cherry. Dr. Maldonado will take over ID service tomorrow. Jean Carlos Ruano MD, MPH Infectious Diseases 05/13/2018 avis-Erica pat, Bull Ford MD - 05/13/2018 7:56 AM PDTFormatting of this note might be different fro m the original. Progress Notes by Bull Medina MD at 05/13/18 9372 Author: Bull Medina MD Service: Hospitalist Author Type: Resident-Y1 Filed: 05/13/18 5603 Date of Service: 05/13/18755 Status: Attested Brake Rider: Bull Medina MD (Resident-Y1) Cosigner: Vick Cherry MD at 05/13/18 1507 Attestation signed by Vick Cherry MD at 05/13/18 1507 Patient seen and examined along with residents. Discussed at length with Dr. Vergara and Dr Matilde Fofana. Patient is scheduled for aortic valve surgery on 05/16/18. Will also undergo card iac cath tomorrow by Dr. Bradford. Meanwhile patient will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 dextrose, fentaNYL, glucag on, glucagon, hydrALAZINE OR hydrALAZINE, ketorolac, labetalol, lactulose, melatonin, mi dazolam, mupirocin, nitroGLYCERIN, nitroGLYCERIN, nystatin, nystatin, ondansetron OR ond ansetron, petrolatum, polyethylene glycol, sodium chloride 0.9 %, sodium chloride, traMADol, zolpidem No family history on file. History Smoking Status Current Every Day Smoker Packs/day: 1.00 Years: 2.00 Smokeless Tobacco Not on file Comment: pt not ready, pt anxious and has difficult coping while in hospital PHYSICAL EXAM Vital Signs: BP (!) 186/104 (BP Location: Right upper arm) | Pulse 70 | Temp 98 F (36.7 C) (Oral) | Resp 20 | Ht 1.753 m (5' 9") | Wt 102.5 kg (225 lb 15.5 oz) | SpO2 98% | BMI 33.37 kg /m Temp: [97.4 F (36.3 C)-98.7 F (37.1 C)] 98 F (36.7 C) (05/16 540) BP: (146-186)/(79-104) 186/104 (05/16 541) Heart Rate: [70-88] 70 (05/16 540) Resp: [18-20] 20 (05/16 540) SpO2: [97 %-99 %] 98 % (05/16 540) Height: [175.3 cm (5' 9")] 175.3 cm (5' 9") (05/15 1915) Weight: [102.5 kg (225 lb 15.5 oz)] 102.5 kg (225 lb 15.5 oz) (05/16 541) Physical Exam Constitutional: He is oriented to person, place, and time. Vital signs are normal. He appea rs well-developed and well-nourished. HENT: Head: Normocephalic and atraumatic. Eyes: Conjunctivae and lids are normal. Neck: Trachea normal and normal range of motion. Neck supple. No JVD present. Cardiovascular: Normal rate and regular rhythm. Murmur heard. Pulmonary/Chest: Effort normal and breath sounds normal. Abdomina/Gl: Soft. Musculoskeletal: He exhibits no edema. Neurological: He is alert and oriented to person, place, and time. No cranial nerve deficit . Skin: Skin is warm. No cyanosis. 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 male with aortic valve endocarditis complicated by two large vegetations. I have r ecommended early surgery secondary to the size of the vegetations. Risks and benefits of ao rtic valve surgery including but not limited to bleeding, infection, stroke, damage to the h eart, lungs and kidneys and were discussed at length with the patient and family. Risk s and benefits of mechanical and tissue valves were also discussed. The requirement of lifel bishnu coumadin therapy with a mechanical valve and its attendant risk of bleeding of 2.5% per year was discussed. The patient understands the risks and wants to proceed with surgery usin g a tissue valve. Cath 05/14/18:No CAD. AVR today. Code Status: Full Code Primary Care Physician: No primary care provider on file. Thank you for allowing me to participate in the care of this patient. KIN VERGARA MD 05/16/2018 Silme Cervantes MD - 05/13/2018 2:21 PM PDTFormatting of this note might be different from the origin al. Consult* by Jeremiah Bradford MD at 05/13/18 3536 Author: Jeremiah Bradford MD Service: Cardiology Author Type: Physician Filed: 05/14/18 1306 Date of Service: 05/13/18 1421 Status: Signed Brake Rider: Jeremiah Bradford MD (Physician) [facility] Service: Cardiology Initial Consult Note Name of Central Supply Technician: Jeremiah Bradford MD Date of Admission: 05/04/2018 Reason for Consultation: Coronary angiogram, Preop for valve surgery Requesting Physician: Dr. Vergara History Obtained From: patient ASSESSMENT & PLAN Aortic valve endocarditis- large aortic valve vegetations with embolic risk- preop for AVR on wednesday Bacteremia HTN DM Current smoker Discussed with patient about coronary angiogram, risks, benefits. We discussed risks includ ing but not limited to , NV, CPR, emergency surgery, CVA, infection, bleeding, vessel i njury etc. He consents to procedure verbally expressing understanding of his risks. Will proceed Will keep him NPO after midnight. ID on board. CHIEF COMPLAINT: Endocarditis HISTORY OF PRESENT ILLNESS: 58 y.o. male with significant past medical history of HTN and DM, and tobacco abuse diagnos ed with a murmur and bacteremia after admission. Blood cultures show E. Faecalis. CLAUDIA on 04/21 12/05 shows 2 large (> 1CM) vegetations on the aortic valve and mild aortic regurgitation. Bl ood cultures have been negative over the last [address] surgery evaluated patient and rec ommended valve replacement- which is scheduled for Wednesday- cardiology consultation called fo r coronary angiogram pre op for CT surgery. He denies any complaints of chest pain, palpitat ions, dizziness, syncope, orthopnea, PND. Denies any prior heart complaints. No hx of CVA. REVIEW OF SYSTEMS Review of Systems Constitutional: Positive for fatigue. Negative for activity change, chills and fever. HENT: Negative for hearing loss, nosebleeds, sore throat, tinnitus and voice change. Eyes: Negative for pain, discharge, redness and visual disturbance. Respiratory: Negative for cough, chest tightness, shortness of breath and wheezing. Cardiovascular: Negative for chest pain, palpitations and leg swelling. Gastrointestinal: Negative for abdominal distention, abdominal pain, anal bleeding, blood i n stool, constipation, diarrhea and nausea. Genitourinary: Negative for dysuria, frequency, hematuria and urgency. Musculoskeletal: Positive for back pain. Negative for arthralgias and neck stiffness. Hip pain Skin: Negative for color change, pallor and wound. Neurological: Negative for dizziness, tremors, seizures, syncope, facial asymmetry, speech difficulty, weakness and light-headedness. Hematological: Negative for adenopathy. Does not bruise/bleed easily. Psychiatric/Behavioral: Negative for agitation, behavioral problems, confusion, sleep distu rbance and suicidal ideas. PAST MEDICAL & SURGICAL HISTORY Past Medical History Diagnosis Date Back pain DM (diabetes mellitus), type 2 (HCC) Hypertension Polycythemia Past Surgical History Procedure Laterality Date APPENDECTOMY delaney fixation Left LEG MEDICATIONS Home Medications Prescriptions Prior to Admission Medication Sig Dispense Refill Last Dose AMLODIPINE BESYLATE PO Take 5 mg by mouth daily. Past Week gabapentin (NEURONTIN) 300 MG capsule Take 300 mg by mouth 3 (three) times daily. Pas t Week hydrOXYzine (VISTARIL) 25 MG capsule Take 25 mg by mouth as needed for Itching. Past Week insulin glargine (LANTUS) 100 UNIT/ML injection Inject into the skin nightly. 018 insulin lispro, human, (HUMALOG) 100 UNIT/ML injection Inject 10 Units into the skin 3 (three) times daily before meals. lisinopril-hydrochlorothiazide (ZESTORETIC) 20-12.5 MG per tablet Take 1 tablet by mout h daily. Past Week betamethasone dipropionate (DIPROLENE) 0.05 % cream Apply topically 2 (two) times madi y. Apply to affected areas on the skin of left leg two times a day. Unknown permethrin (ELIMITE) 5 % cream Apply topically once a week. Apply from head to toe, le ave on for 8 to 14 hours then rinse. May reapply in 7 days. Unknown Inhospital Medications amLODIPine 5 mg Oral Daily ampicillin 2 g Intravenous Q4H diclofenac 2 g Topical 4x Daily docusate sodium 100 mg Oral BID DULoxetine 60 mg Oral Daily enoxaparin 40 mg Subcutaneous Q24H gabapentin 300 mg Oral TID gentamicin 1 mg/kg (Adjusted) Intravenous Q8H insulin glargine 10 Units Subcutaneous Nightly insulin lispro (human) 0-10 Units Subcutaneous TID AC insulin lispro (human) 0-5 Units Subcutaneous Nightly Lidocaine 1 patch Transdermal Daily losartan 25 mg Oral Daily nicotine 1 patch Transdermal Daily sodium chloride 10 mL Intravenous 2 times per day sodium chloride (IV) 110 mL/hr at 05/12/182000 Allergies Allergies Allergen Reactions Latex Itching and Rash FAMILY HISTORY No family history on file. SOCIAL HISTORY Social History Social History Marital status: Single Spouse name: N/A Number of children: N/A Years of education: N/A Occupational History Not on file. Social History Main Topics Smoking status: Current Every Day Smoker Packs/day: 1.00 Years: 2.00 Smokeless tobacco: Not on file Comment: pt not ready, pt anxious and has difficult coping while in hospital Alcohol use Not on file Drug use: Unknown Sexual activity: Not on file Other Topics Concern Not on file Social History Narrative No narrative on file PHYSICAL EXAM Vital Signs: BP 129/66 (BP Location: Right upper arm) | Pulse 94 | Temp 98 F (36.7 C) (Oral) | Re sp 18 | Ht 1.753 m (5' 9.02") | Wt 98.6 kg (217 lb 6 oz) | SpO2 97% | BMI 32.09 kg/m Intake/Output Summary (Last 24 hours) at 05/13/18 1421 Last data filed at 05/13/18 0628 Gross per 24 hour Intake 1364 ml Output 4050 ml Net -2686 ml Constitutional: Well-developed. Neck: No JVD present. No thyromegaly present. Cardiovascular: Regular rhythm, S1 normal and S2 normal. +ve sys and banegas murmur heard. Pulses:+2 B/l Pulmonary/Chest: Effort normal and breath sounds normal. No wheezes. No rales. Abdominal: Soft. No tenderness. Musculoskeletal: No edema. Neurological: Alert. No cranial nerve deficit. Skin: Warm and dry. DATA Recent Labs Lab 05/13/18 0405 NA 139 K 4.0 CO2 24 BUN 4* CREATININE 0.5* MG 1.8 Recent Labs Lab 05/11/18 0007 05/10/18 1748 05/10/18 1303 TROPONINI <0.020 <0.020 <0.020 Recent Labs Lab 05/13/18 0405 WBC 6.98 HGB 13.8 HCT 42.4 MCV 67.9* PLT 169 EKG: Last Echo: 05/08/2018 Impression 1. Overall left ventricular systolic function is normal with, an EF between 60 - 65 %. 2. There is mild concentric left ventricular hypertrophy. 3. No regional wall motion abnormalities. 4. The right ventricle is normal in size and function. 5. There is mild aortic valve sclerosis without stenosis. 6. There is trace (physiologic) mitral regurgitation. 7. Pulmonary artery systolic pressure could not be assessed due to the absence of adequate TR jet. 8. There is no pericardial effusion. 9. No definite vegetation visualized. CLAUDIA 05/12/2018 Impression 1. Overall left ventricular systolic function is normal with, an EF between 60 - 65 %. 2. There is orbs-nj-zzwuxtap, eccentric aortic regurgitation. 3. Mild aortic stenosis present. 4. 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 Thank you for allowing me to participate in the care of this patient. Code Status: Full Code Primary Care Physician: No primary care provider on file. Jeremiah Bradford MD omira, Kin David Jr., MD - 05/13/2018 12:53 PM PDTFormatting of this note might be different from the origin al. Consult* by Kin Vergara MD at 05/13/18 1253 Author: Kin Vergara MD Service: Cardiac, Thoracic, and Vascular Surgery Author Type: Physician Filed: 05/13/18 7457 Date of Service: 05/13/18 1253 Status: Signed Brake Rider: Kin Vergara MD (Physician) [facility] Service: Cardiothoracic Surgery Initial Consult Note Date of Admission: 05/04/2018 Reason for Consultation: Endocarditis Requesting Physician: Dr. Cherry, Hospitalist History Obtained From: patient CHIEF COMPLAINT: Bacteremia HISTORY OF PRESENT ILLNESS The patient is a 58 y.o. 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 Blood cultures show E. Roxana calis. CLAUDIA on 05/12/18 shows 2 large (> 1CM) vegetations on the aortic valve and mild aortic regurgitation. Blood cultures have been negative over the last 48 hours. We are asked to niok luate the patient for aortic valve endocarditis. REVIEW OF SYSTEMS Review of Systems Constitutional: Positive for fatigue. Negative for activity change, chills and fever. HENT: Negative for hearing loss, nosebleeds, sore throat, tinnitus and voice change. Eyes: Negative for pain, discharge, redness and visual disturbance. Respiratory: Negative for cough, chest tightness, shortness of breath and wheezing. Cardiovascular: Negative for chest pain, palpitations and leg swelling. Gastrointestinal: Negative for abdominal distention, abdominal pain, anal bleeding, blood i n stool, constipation, diarrhea and nausea. Genitourinary: Negative for dysuria, frequency, hematuria and urgency. Musculoskeletal: Positive for back pain. Negative for arthralgias and neck stiffness. Hip pain Skin: Negative for color change, pallor and wound. Neurological: Negative for dizziness, tremors, seizures, syncope, facial asymmetry, speech difficulty, weakness and light-headedness. Hematological: Negative for adenopathy. Does not bruise/bleed easily. Psychiatric/Behavioral: Negative for agitation, behavioral problems, confusion, sleep distu rbance and suicidal ideas. Past Medical History Diagnosis Date Back pain DM (diabetes mellitus), type 2 (HCC) Hypertension Polycythemia Past Surgical History Procedure Laterality Date APPENDECTOMY delaney fixation Left LEG Allergies Allergen Reactions Latex Itching and Rash Prescriptions Prior to Admission Medication Sig Dispense Refill Last Dose AMLODIPINE BESYLATE PO Take 5 mg by mouth daily. Past Week gabapentin (NEURONTIN) 300 MG capsule Take 300 mg by mouth 3 (three) times daily. Pas t Week hydrOXYzine (VISTARIL) 25 MG capsule Take 25 mg by mouth as needed for Itching. Past Week insulin glargine (LANTUS) 100 UNIT/ML injection Inject into the skin nightly. 018 insulin lispro, human, (HUMALOG) 100 UNIT/ML injection Inject 10 Units into the skin 3 (three) times daily before meals. lisinopril-hydrochlorothiazide (ZESTORETIC) 20-12.5 MG per tablet Take 1 tablet by mout h daily. Past Week betamethasone dipropionate (DIPROLENE) 0.05 % cream Apply topically 2 (two) times madi y. Apply to affected areas on the skin of left leg two times a day. Unknown permethrin (ELIMITE) 5 % cream Apply topically once a week. Apply from head to toe, le ave on for 8 to 14 hours then rinse. May reapply in 7 days. Unknown Scheduled Medications amLODIPine 5 mg Oral Daily ampicillin 2 g Intravenous Q4H diclofenac 2 g Topical 4x Daily docusate sodium 100 mg Oral BID DULoxetine 60 mg Oral Daily enoxaparin 40 mg Subcutaneous Q24H gabapentin 300 mg Oral TID gentamicin 1 mg/kg (Adjusted) Intravenous Q8H insulin glargine 10 Units Subcutaneous Nightly insulin lispro (human) 0-10 Units Subcutaneous TID AC insulin lispro (human) 0-5 Units Subcutaneous Nightly Lidocaine 1 patch Transdermal Daily losartan 25 mg Oral Daily nicotine 1 patch Transdermal Daily sodium chloride 10 mL Intravenous 2 times per day Continuous Infusions sodium chloride (IV) 110 mL/hr at 05/12/182000 PRN Medications acetaminophen OR acetaminophen, aluminum-magnesium hydroxide-simethicone, carboxymethyl cellulose, cyclobenzaprine, dextrose, glucagon, glucagon, hydrALAZINE OR hydrALAZINE, ke torolac, labetalol, lactulose, melatonin, nystatin, nystatin, ondansetron OR ondansetron , petrolatum, sodium chloride 0.9 %, sodium chloride, traMADol No family history on file. History Smoking Status Current Every Day Smoker Packs/day: 1.00 Years: 2.00 Smokeless Tobacco Not on file Comment: pt not ready, pt anxious and has difficult coping while in hospital PHYSICAL EXAM Vital Signs: BP 129/66 (BP Location: Right upper arm) | Pulse 94 | Temp 98 F (36.7 C) (Oral) | Re sp 18 | Ht 1.753 m (5' 9.02") | Wt 98.6 kg (217 lb 6 oz) | SpO2 97% | BMI 32.09 kg/m Temp: [97.6 F (36.4 C)-98.2 F (36.8 C)] 98 F (36.7 C) (05/13 1111) BP: (129-181)/(66-92) 129/66 (05/13 1111) Heart Rate: [80-105] 94 (05/13 1111) Resp: [18-20] 18 (05/13 1111) SpO2: [96 %-99 %] 97 % (05/13 1111) Weight: [98.6 kg (217 lb 6 oz)] 98.6 kg (217 lb 6 oz) (05/13 0429) Physical Exam Constitutional: He is oriented to person, place, and time. Vital signs are normal. He appea rs well-developed and well-nourished. HENT: Head: Normocephalic and atraumatic. Eyes: Conjunctivae and lids are normal. Neck: Trachea normal and normal range of motion. Neck supple. No JVD present. Cardiovascular: Normal rate and regular rhythm. Murmur heard. Pulmonary/Chest: Effort normal and breath sounds normal. Abdomina/Gl: Soft. Musculoskeletal: He exhibits no edema. Neurological: He is alert and oriented to person, place, and time. No cranial nerve deficit . Skin: Skin is warm. No cyanosis. DATA CLAUDIA as above PROBLEM LIST Principal Problem: Infective endocarditis of aortic valve Active Problems: Type 2 diabetes mellitus without complication, with long-term current use of insulin ([facility] ) Hypoglycemia Suicide attempt by adequate means ([facility]) Benign essential hypertension Polycythemia Urinary retention Chronic bilateral thoracic back pain Current every day smoker Acute cystitis without hematuria Infective discitis Osteomyelitis of lumbar spine ([facility]) RISK SCORES About the STS Risk Calculator Procedure: AV Replacement Risk of Mortality: 1.576% Morbidity or Mortality: 14.096% Long Length of Stay: 7.138% Short Length of Stay: 39.169% Permanent Stroke: 0.523% Prolonged Ventilation: 7.878% DSW Infection: 0.353% Renal Failure: 3.03% Reoperation: 7.861% ASSESSMENT & PLAN 58 y.o. male with aortic valve endocarditis complicated by two large vegetations. I have r ecommended early surgery secondary to the size of the vegetations. Risks and benefits of ao rtic valve surgery including but not limited to bleeding, infection, stroke, damage to the h eart, lungs and kidneys and were discussed at length with the patient and family. Risk s and benefits of mechanical and tissue valves were also discussed. The requirement of lifel bishnu coumadin therapy with a mechanical valve and its attendant risk of bleeding of 2.5% per year was discussed. The patient understands the risks and wants to proceed with surgery usin g a tissue valve. Pre-op angiography will be performed by Dr. Bradford. AVR tentatively on 05/16/18. Code Status: Full Code Primary Care Physician: No primary care provider on file. Thank you for allowing me to participate in the care of this patient. KIN VERGARA MD 05/13/2018 ristow, Deja Mondragon MD - 05/11/2018 9:34 AM PDTFormatting of this note might be different from the orig inal. Consults by Deja Miller MD at 05/11/18 0925 Author: Deja Miller MD Service: (none) Author Type: Physician Filed: 05/11/18 1046 Date of Service: 05/11/1804 Status: Signed Brake Rider: Deja Miller MD (Physician) Consult Orders: 1. Inpatient consult to Psychiatry [[id number]] ordered by Argelia Aviles MD-R1 at 05/10 9661 Tele-Psychiatry Consultation - Follow Up ID: José Miguel Floyd, joann 58 y.o. male : 1960 Site of Service 9105/[id number] Date of Service: 05/11/2018 Admit Date : 05/04/2018, Hospital Day: 7 This exam was conducted via a secure 128-bit AES encrypted bidirectional video session. Reason for Consult: S/p intentional overdose on insulin. Tele-Psych MD initially saw pt on 05/07/18 for evaluat ion. See note from Dr. Miller from that date for initial details. Chief Complaint: Mood, anxiety Subjective / HPI: Initially evaluated pt on 05/07/18 who had some passive SI related to chronic pain. At that time suicide precautions were recommended and pt was started on duloxetine to treat mood an d assist with chronic pain. Pt has required further treatment in hospital for osteomyelitis requiring IV abx. Over that time, mood has improved with feeling more hopeful for the futu re with less pain. Tele-Psychiatry has been re-consulted to determine what treatment is rec ommended regarding his mood and past suicide attempt. On interview today, pt reports he is hopeful for the future. He is very happy that he has an answer for what was causing his back pain and that it is improving with the treatment he is receiving. Tolerating duloxetine without problems. Discussed insulin overdose prior to admission. He says that he regrets it and does not plan to do anything like that in the fut ure. Seems slightly discouraged that his hx of incarceration has affected what options he h as for future treatment. Overall he feels positive about the future. 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 Fe els much less anxious than before. He denies suicidal or homicidal ideation. Denies halluc inations or delusions. Psychiatric ROS: Per above Medical ROS: Pain: low back pain is improving Neuro: denies Cardiovascular: denies Meds: Prescriptions Prior to Admission Medication Sig Dispense Refill Last Dose AMLODIPINE BESYLATE PO Take 5 mg by mouth daily. Past Week gabapentin (NEURONTIN) 300 MG capsule Take 300 mg by mouth 3 (three) times daily. Pas t Week hydrOXYzine (VISTARIL) 25 MG capsule Take 25 mg by mouth as needed for Itching. Past Week insulin glargine (LANTUS) 100 UNIT/ML injection Inject into the skin nightly. 018 insulin lispro, human, (HUMALOG) 100 UNIT/ML injection Inject 10 Units into the skin 3 (three) times daily before meals. lisinopril-hydrochlorothiazide (ZESTORETIC) 20-12.5 MG per tablet Take 1 tablet by mout h daily. Past Week betamethasone dipropionate (DIPROLENE) 0.05 % cream Apply topically 2 (two) times madi y. Apply to affected areas on the skin of left leg two times a day. Unknown permethrin (ELIMITE) 5 % cream Apply topically once a week. Apply from head to toe, le ave on for 8 to 14 hours then rinse. May reapply in 7 days. Unknown Current Facility-Administered Medications: acetaminophen (TYLENOL) tablet 650 mg, 650 mg, Oral, Q6H PRN, 650 mg at 05/11/18 0203 OR acetaminophen (TYLENOL) suppository 650 mg, 650 mg, Rectal, Q6H PRN, Severino Simon MD aluminum-magnesium hydroxide-simethicone (MAALOX) 200-200-20 MG/5ML suspension 30 mL, 30 mL, Oral, Q6H PRN, Cuong Wright MD-R1, 30 mL at 05/10/18 1323 amLODIPine (NORVASC) tablet 5 mg, 5 mg, Oral, Daily, Greg Matta MD, 5 mg at 0 05/10/18 0920 ampicillin (OMNIPEN) 2 g in sodium chloride (IV) 0.9 % 100 mL IVPB, 2 g, Intravenous, Q4H, Jean Carlos Huber MD carboxymethylcellulose (REFRESH PLUS) 0.5 % ophthalmic solution 1 drop, 1 drop, Both E yes, TID PRN, Monica Romero MD cyclobenzaprine (FLEXERIL) tablet 10 mg, 10 mg, Oral, TID PRN, CARLOS Delaney, 10 mg at 05/06/18 1622 dextrose 50 % solution 50 mL, 50 mL, Intravenous, PRN, CARLOS Delaney, 50 mL a t 05/06/182358 diclofenac (VOLTAREN) 1 % gel 2 g, 2 g, Topical, 4x Daily, CARLOS Delaney, 2 g at 05/10/182101 docusate sodium (COLACE) capsule 100 mg, 100 mg, Oral, BID, 100 mg at 05/10/182058 OR [DISCONTINUED] docusate (COLACE) 50 mg/5 mL liquid 100 mg, 100 mg, Per OG Tube, BID, Vi rgCARLOS Dean DULoxetine (CYMBALTA) DR capsule 30 mg, 30 mg, Oral, Daily, Severino Simon MD, 30 mg at 05/10/18 0920 enoxaparin (LOVENOX) injection 40 mg, 40 mg, Subcutaneous, Q24H, LEDA Delaney P, 40 mg at 05/10/18 1159 gabapentin (NEURONTIN) capsule 300 mg, 300 mg, Oral, TID, Greg Matta MD, 300 mg at 05/11/18 0541 gentamicin (GARAMYCIN) IVPB 80 mg, 1 mg/kg (Adjusted), Intravenous, Q8H, Jean Carlos zabala MD glucagon (GLUCAGEN) injection 0.5 mg, 0.5 mg, Intramuscular, PRN, BRIAN Delaney NP glucagon (GLUCAGEN) injection 1 mg, 1 mg, Intramuscular, PRN, CARLOS Delaney, 1 mg at 05/05/18 1651 hydrALAZINE (APRESOLINE) injection 10 mg, 10 mg, Intravenous, Q1H PRN, 10 mg at 1506 OR hydrALAZINE (APRESOLINE) injection 20 mg, 20 mg, Intravenous, Q1H PRN, CARLOS Molina, 20 mg at 05/10/18 1159 insulin glargine (LANTUS) injection 10 Units, 10 Units, Subcutaneous, Nightly, Pool Melissa Ruiz MD, 10 Units at 05/10/182108 insulin lispro (human) (HUMALOG) injection 0-10 Units, 0-10 Units, Subcutaneous, TID A C, Pool Ruiz MD, 1 Units at 05/10/18 165 insulin lispro (human) (HUMALOG) injection 0-5 Units, 0-5 Units, Subcutaneous, Nightly , Pool Ruiz MD, 1 Units at 05/10/182108 labetalol (NORMODYNE) 5 mg/mL injection 10 mg, 10 mg, Intravenous, Q1H PRN, Delma hernandez DO, 10 mg at 05/06/18 0527 lactulose (CHRONULAC) 10 GM/15ML solution 20 g, 20 g, Oral, BID PRN, LEDA DeleonP, 20 g at 05/11/18 0541 Lidocaine (SALONPAS) 4 % patch 1 patch, 1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 Service: (none) Author Type: Registered Nurse Filed: 06/19/181444 Date of Service: 06/19/181444 Status: Signed Brake Rider: Catherine Tate RN (Registered Nurse) Problem: Daily Care Goal: Daily care needs are met Assess and monitor ability to perform self care and identify potential discharge needs. Outcome: Progressing Pt helped with daily cares and set up for daily shower lan o f Care - Conversion Transaction, Provider Unknown - 06/19/2018 1:45 AM PDTFormatting of thi s note might be different from the original. Plan of Care by Jesus Duque RN at 06/19/18144 Author: Jesus Duque RN Service: (none) Author Type: Registered Nurse Filed: 06/19/18144 Date of Service: 06/19/18144 Status: Signed Brake Rider: Jesus Duque RN (Registered Nurse) Problem: Pain Goal: Patient's pain/discomfort is manageable Assess and monitor patient's pain using appropriate pain scale. Collaborate with interdisci plinary team and initiate plan and interventions as ordered. Re-assess patient's pain level approximately 1-2 hours after pain management intervention. Premedicate as needed. Outcome: Progressing Verbalizes pain and calls for PRN medication. Problem: Safety Goal: Patient will be injury free during hospitalization Assess and monitor vitals signs, neurological status including level of consciousness and o rientation. Assess patient's risk for falls and implement fall prevention plan of care and i nterventions per hospital policy. Ensure arm band on, uncluttered walking paths in room, adequate room lighting, call light a nd overbed table within reach, bed in low position, wheels locked, side rails up per policy, and non-skid footwear provided. Outcome: Progressing Calls for any needs. Up independently in room. lan o f Care - Conversion Transaction, Provider Unknown - 06/18/2018 10:49 AM PDTFormatting of thi s note might be different from the original. Plan of Care by Mirian Barriga RN at 06/18/18 1049 Author: Mirian Barriga RN Service: (none) Author Type: Registered Nurse Filed: 06/18/18 1050 Date of Service: 06/18/18 104 Status: Signed Brake Rider: Mirian Barriga RN (Registered Nurse) Safety Patient will be injury free during hospitalization Progressing Patient is IND in the room with TLSO brace and four walker. Patient is daphnie to utilze call l ight appropriately. Pain Patient's pain/discomfort is manageable Progressing PRN pain medication is available. Patient calls appropriately for medication. lan o f Care - Conversion Transaction, Provider Unknown - 06/18/2018 4:40 AM PDTFormatting of thi s note might be different from the original. Plan of Care by Jesus Duque RN at 06/18/180 Author: Jesus Duque RN Service: (none) Author Type: Registered Nurse Filed: 06/18/180 Date of Service: 06/18/18439 Status: Signed Brake Rider: Jesus Duque RN (Registered Nurse) Problem: Pain Goal: Patient's pain/discomfort is manageable Assess and monitor patient's pain using appropriate pain scale. Collaborate with interdisci plinary team and initiate plan and interventions as ordered. Re-assess patient's pain level approximately 1-2 hours after pain management intervention. Premedicate as needed. Outcome: Progressing Pt c/o pain and was medicated per orders and relief noted. lan o f Care - Conversion Transaction, Provider Unknown - 06/17/2018 10:40 AM PDTFormatting of thi s note might be different from the original. Plan of Care by Mirian Barriga RN at 06/17/181039 Author: Mirian Barriga RN Service: (none) Author Type: Registered Nurse Filed: 06/17/181 Date of Service: 06/17/181039 Status: Signed Brake Rider: Mirian Barriga RN (Registered Nurse) Daily Care Daily care needs are met Progressing Patient is able to participate in daily care needs and potential discharge needs. Patient u tilizes call light appropriately to ask for assistance. Pain Patient's pain/discomfort is manageable Progressing PRN pain medication is offered and available to patient per orders. Patient is informed and aware of orders. lan o f Care - Conversion Transaction, Provider Unknown - 06/17/2018 3:28 AM PDTFormatting of thi s note might be different from the original. Plan of Care by Javon Wells RN at 06/17/18327 Author: Javon Wells RN Service: (none) Author Type: Registered Nurse Filed: 06/17/18327 Date of Service: 06/17/18327 Status: Signed Brake Rider: Javon Wells RN (Registered Nurse) Problem: Pain Goal: Patient's pain/discomfort is manageable Assess and monitor patient's pain using appropriate pain scale. Collaborate with interdisci plinary team and initiate plan and interventions as ordered. Re-assess patient's pain level approximately 1-2 hours after pain management intervention. Premedicate as needed. Outcome: Progressing Pt's pain being adequately managed with current PRN regimen. lan o f Care - Conversion Transaction, Provider Unknown - 06/16/2018 6:34 PM PDTFormatting of thi s note might be different from the original. Plan of Care by Catherine Tate RN at 06/16/181833 Author: Catherine Tate RN Service: (none) Author Type: Registered Nurse Filed: 06/16/181833 Date of Service: 06/16/181833 Status: Signed Brake Rider: Catherine Tate RN (Registered Nurse) Problem: Pain Goal: Patient's pain/discomfort is manageable Assess and monitor patient's pain using appropriate pain scale. Collaborate with interdisci plinary team and initiate plan and interventions as ordered. Re-assess patient's pain level approximately 1-2 hours after pain management intervention. Premedicate as needed. Outcome: Progressing Pt medicated for pain per MAR, post internal medicine nurse practitioner rating pain at 3-5/10. lan o f Care - Conversion Transaction, Provider Unknown - 06/15/2018 10:27 PM PDTFormatting of thi s note might be different from the original. Plan of Care by Komal Bedolla RN at 06/15/182226 Author: Komal Bedolla RN Service: (none) Author Type: Registered Nurse Filed: 06/15/182226 Date of Service: 06/15/182226 Status: Signed Brake Rider: Komal Bedolla RN (Registered Nurse) Problem: Pain Goal: Patient's pain/discomfort is manageable Assess and monitor patient's pain using appropriate pain scale. Collaborate with interdisci plinary team and initiate plan and interventions as ordered. Re-assess patient's pain level approximately 1-2 hours after pain management intervention. Premedicate as needed. Outcome: Progressing Pain managed with PRN oxycodone. lan o f Care - Conversion Transaction, Provider Unknown - 06/15/2018 6:32 PM PDTFormatting of thi s note might be different from the original. Plan of Care by Delma Isaacs RN at 06/15/181831 Author: Delma Isaacs RN Service: (none) Author Type: Registered Nurse Filed: 06/15/181832 Date of Service: 06/15/181831 Status: Signed Brake Rider: Delma Isaacs RN (Registered Nurse) Patient's pain/discomfort is manageable Progressing Pt medicated for pain PRN per MAR with some relief noted. Patient will be injury free during hospitalization Progressing Bed in lowest locked position, non-skid socks utilized when transferring, call light within reach, pt visualized hourly. iscel laneous - Conversion Transaction, Provider Unknown - 06/15/2018 5:50 PM PDTFormatting of th is note might be different from the original. Treatment Plan by Teri Hough PT at 06/15/181749 Author: Teri Hough PT Service: (none) Author Type: Physical Therapist Filed: 06/15/182002 Date of Service: 06/15/181749 Status: Signed Brake Rider: Teri Hough PT (Physical Therapist) PHYSICAL THERAPY RE-EVALUATION PT Received On: 06/15/18 Reason for Treatment: Cardiac, Deconditioning Requires PT Follow Up: Yes Follow up PT Only?: No Focus for Next Treatment: Stair Training, Transfer Technique (tub transfer simulation in pr ep for home) PT Eval/Reassessment Date: 06/15/18 Assistance Required: 1 person Recommendations: Home Assist, Prior Setting, HH PT, HH OT Equipment Recommended: (4ww obtained FAMILY PSYCHOLOGIST) Barriers to Discharge: Physical Deficits Impacting Functional [place], Self-care Defic its Impacting Functional [place], Equipment Needs (see comment), Home Design (see comme nt) Recommendation Comments: Pt making gains for stabilization during mobility, ongoing limitat ions for carryover with all sternal and spinal precautions with poor teaching ability in thi s regard. Continues to require further stair and tub transfer simulation to maximize safe d/ c to home as he is unable to be placed in facility. Plan Treatment/Interventions: Stair training, Transfer training, Review precautions, Gait traini ng Progress: Progressing toward goals PT Frequency: 2-3x/wk, Once per day Summary Comments: Pt received supine in bed and agreeable to PT session with emphasis for progressi on of safety/independence during stair negotiation to simulate his home entry. Additional tr gwen attempted for ongoing 4ww safety during seated rest breaks with pt continued poor car ryover for brake lock and turn of his body to sit versus rotating walker around his COG and then sitting demonstrating continued fall risk. From pt previous extensive participation wit h PT he is able to improve some areas of compliance and safety with high repetition of task suggesting benefit from further training on walker safety for increased distance, stairs and tub transfer. Pt returned end of session to supine in bed, call light in reach and RN aware . Precautions Spinal Precautions: Lumbar Cardiac Precautions: Sternal Other Precautions: fall precautions Cognition Overall Cognitive Status: Within Functional Limits Orientation Level: Oriented Oriented: x 4 Comments: Continued poor compliance for precautions despite all cueing FUNCTIONAL MOBILITY Bed Mobility Supine to Sit: Modified independent (see note regarding sternal precautions) Sit to Supine: Modified independent Transfers Sit to/from Stand: Modified independent Ambulation Maximal Ambulation Distance (feet): [id number], 65ft Total Ambulation Distance (feet): 265ft Ambulation Assistance: Supervision, Verbal instruction Distance limited by?: Patient's ability Pattern: Alternating, Decreased leighton, Forward flexed, Wide base, Shuffling (intermittent shuffle ) Assistive Device: Walker 4 wheeled Stairs Number of Stairs: 5 Stairs Assistance: Minimal assist, Verbal instruction, X 1, Safety concerns Number of stairs limited by?: Patient's ability Stair Management Technique: Step-to (laterally moving R to ascend with BUE at handrail) BALANCE Balance: Yes Static Sitting Balance Static Sitting-Balance Support: No upper extremity support, Feet supported Static Sitting-Level of Assistance: Independent, Attains midline, Maintains midline Dynamic Sitting Balance Dynamic Sitting-Balance Support: Feet supported, No upper extremity support Dynamic Sitting-Balance: Lateral lean, Forward lean Sitting Dynamic Level of Assist: Modified independent Static Standing Balance Static Standing-Balance Support: Right upper extremity support, Left upper extremity suppor t Static Standing-Level of Assistance: Modified independent, Attains midline, Maintains midli ne Static Standing-Comment/Duration: at 4ww Activity Tolerance: Patient limited by fatigue Nurse Made Aware: BETTIE gilman Safety Devices in Place: Yes Type of Devices: (call light in reach) Restraints Initially in Place: No The patient demonstrated no indication of pain during therapy session. Education Completed: Education Topics: [x] Rationale for PT [x] PT POC [x] DC planning [x] Precautions [] Exercises [] Bed mobility [x] Transfer training with hand placement [x] Gait training [x] Stair training [] Use of gait belt [] Other Completed with: [x] Patient [] Spouse [] Significant other [] Family [] C aregiver [] Other Completed by: [x] Verbal education [x] Demonstration [] Handout [] Other: Response to Education: [x] Stated Understanding [x] Reinforcement necessary [] Returned demonstration [] Demonstrated understanding [] No evidence of learning [] Refused Physical Therapy Goals PT Goals Goal Formulation: With patient Pt Will Go Supine To Sit: Independently, Met Pt Will Go Sit To Supine: Independently, Met Pt Will Transfer Sit to Stand: With modified independence, Met Pt Will Transfer Bed/Chair: With modified independence, Met Pt Will Ambulate: greater than 500 feet, Partly met Ambulate Level Assist: With supervision, Met, New / revised goal, With modified independenc e Ambulate with Assistive Device: Least restricitve device, Partly met (currently 4ww, trial w/o AD upcoming session) Pt Will Go Up / Down Stairs: 3-5 stairs, Met Stairs Level of Assist: With supervision, Partly met Other Goal: Pt will perform simulated tub transfer with mod I lan o f Care - Conversion Transaction, Provider Unknown - 06/14/2018 1:34 PM PDTFormatting of thi s note might be different from the original. Plan of Care by Delma Isaacs RN at 06/14/181333 Author: Delma Isaacs RN Service: (none) Author Type: Registered Nurse Filed: 06/14/181333 Date of Service: 06/14/181333 Status: Signed Brake Rider: Delma Isaacs RN (Registered Nurse) Patient will be injury free during hospitalization Progressing Bed in lowest locked position, non-skid socks utilized when transferring, call light within reach, pt visualized hourly. Patient's pain/discomfort is manageable Progressing Pt medicated for pain PRN per MAR during shift with good relief noted. lan o f Care - Conversion Transaction, Provider Unknown - 06/14/2018 12:54 AM PDTFormatting of thi s note might be different from the original. Plan of Care by Delma Ramirez RN at 06/14/1853 Author: Delma Ramirez RN Service: (none) Author Type: Registered Nurse Filed: 06/14/1853 Date of Service: 06/14/1853 Status: Signed Brake Rider: Delma Ramirez RN (Registered Nurse) Problem: Safety Goal: Patient will be injury free during hospitalization Assess and monitor vitals signs, neurological status including level of consciousness and o rientation. Assess patient's risk for falls and implement fall prevention plan of care and i nterventions per hospital policy. Ensure arm band on, uncluttered walking paths in room, adequate room lighting, call light a nd overbed table within reach, bed in low position, wheels locked, side rails up per policy, and non-skid footwear provided. Outcome: Progressing Bed in low locked position, call light within reach, hourly rounding for pt needs. lan o f Care - Conversion Transaction, Provider Unknown - 06/13/2018 4:13 PM PDTFormatting of thi s note might be different from the original. Plan of Care by Clara Alonzo RN at 06/13/181612 Author: Clara Alonzo RN Service: (none) Author Type: Registered Nurse Filed: 06/13/181612 Date of Service: 06/13/181612 Status: Signed Brake Rider: Clara Alonzo RN (Registered Nurse) Problem: Pain Goal: Patient's pain/discomfort is manageable Assess and monitor patient's pain using appropriate pain scale. Collaborate with interdisci plinary team and initiate plan and interventions as ordered. Re-assess patient's pain level approximately 1-2 hours after pain management intervention. Premedicate as needed. Outcome: Progressing Complaints of pain 5-6/10. Oxycodone given per NOV. Problem: Safety Goal: Patient will be injury free during hospitalization Assess and monitor vitals signs, neurological status including level of consciousness and o rientation. Assess patient's risk for falls and implement fall prevention plan of care and i nterventions per hospital policy. Ensure arm band on, uncluttered walking paths in room, adequate room lighting, call light a nd overbed table within reach, bed in low position, wheels locked, side rails up per policy, and non-skid footwear provided. Outcome: Progressing Remains free of falls. VSS. lan o f Care - Conversion Transaction, Provider Unknown - 06/13/2018 2:30 AM PDTFormatting of thi s note might be different from the original. Plan of Care by Jesus Duque RN at 06/13/18 1411 Author: Jesus Duque RN Service: (none) Author Type: Registered Nurse Filed: 06/13/18229 Date of Service: 06/13/18229 Status: Signed Brake Rider: Jesus Duque RN (Registered Nurse) Problem: Pain Goal: Patient's pain/discomfort is manageable Assess and monitor patient's pain using appropriate pain scale. Collaborate with interdisci plinary team and initiate plan and interventions as ordered. Re-assess patient's pain level approximately 1-2 hours after pain management intervention. Premedicate as needed. Outcome: Progressing Pt c/o pain and medicated per orders. Pt calls when pain medication needed. lan o f Care - Conversion Transaction, Provider Unknown - 06/12/2018 4:56 PM PDTFormatting of thi s note might be different from the original. Plan of Care by Delma Isaacs RN at 06/12/181655 Author: Delma Isaacs RN Service: (none) Author Type: Registered Nurse Filed: 06/12/181656 Date of Service: 06/12/181655 Status: Signed Brake Rider: Delma Isaacs RN (Registered Nurse) Patient will be injury free during hospitalization Progressing Bed in lowest locked position, call light within reach, non-skid socks utilized when transf erring, pt visualized hourly. lan o f Care - Conversion Transaction, Provider Unknown - 06/12/2018 12:52 AM PDTFormatting of thi s note might be different from the original. Plan of Care by Taylor Ventura RN at 06/12/1851 Author: Taylor Ventura RN Service: (none) Author Type: Registered Nurse Filed: 06/12/1851 Date of Service: 06/12/1851 Status: Signed Brake Rider: Taylor Ventura RN (Registered Nurse) Problem: Safety Goal: Patient will be injury free during hospitalization Assess and monitor vitals signs, neurological status including level of consciousness and o rientation. Assess patient's risk for falls and implement fall prevention plan of care and i nterventions per hospital policy. Ensure arm band on, uncluttered walking paths in room, adequate room lighting, call light a nd overbed table within reach, bed in low position, wheels locked, side rails up per policy, and non-skid footwear provided. Outcome: Progressing Arm band on, non-slip footwear provided, call light within reach, bed is low and locked, WC M. lan o f Care - Winston Henderson ARNP - 06/11/2018 9:02 AM PDTFormatting of this note might be d ifferent from the original. Plan of Care by Winston Henderson RN at 06/11/18901 Author: Winston Henderson RN Service: (none) Author Type: Registered Nurse Filed: 06/11/18901 Date of Service: 06/11/18901 Status: Signed Brake Rider: Winston Henderson RN (Registered Nurse) Problem: Pain Goal: Patient's pain/discomfort is manageable Assess and monitor patient's pain using appropriate pain scale. Collaborate with interdisci plinary team and initiate plan and interventions as ordered. Re-assess patient's pain level approximately 1-2 hours after pain management intervention. Premedicate as needed. Outcome: Progressing Patient pain management progressing. Patient aware of pain scale, analgesics, alternative pain management options. Problem: Safety Goal: Patient will be injury free during hospitalization Assess and monitor vitals signs, neurological status including level of consciousness and o rientation. Assess patient's risk for falls and implement fall prevention plan of care and i nterventions per hospital policy. Ensure arm band on, uncluttered walking paths in room, adequate room lighting, call light a nd overbed table within reach, bed in low position, wheels locked, side rails up per policy, and non-skid footwear provided. Outcome: Progressing Patient progressing on safety measures while at [facility]. Call light reinforced, fall risk a ssessed. Room kept tidy for ambulation safety. Problem: Daily Care Goal: Daily care needs are met Assess and monitor ability to perform self care and identify potential discharge needs. Outcome: Progressing Patient progressing on daily care needs. Toileting, bathing, hygiene needs addressed. Iona l continue to educate and encourage good hygiene and daily care practices. lan of Care - C onversion Transaction, Provider Unknown - 06/10/2018 9:27 PM PDTFormatting of this note josé miguel ht be different from the original. Plan of Care by Marialuisa Acuna RN at 06/10/182126 Author: Marialuisa Acuna RN Service: (none) Author Type: Registered Nurse Filed: 06/10/182126 Date of Service: 06/10/182126 Status: Signed Brake Rider: Marialuisa Acuna RN (Registered Nurse) Problem: Safety Goal: Patient will be injury free during hospitalization Assess and monitor vitals signs, neurological status including level of consciousness and o rientation. Assess patient's risk for falls and implement fall prevention plan of care and i nterventions per hospital policy. Ensure arm band on, uncluttered walking paths in room, adequate room lighting, call light a nd overbed table within reach, bed in low position, wheels locked, side rails up per policy, and non-skid footwear provided. Outcome: Progressing Continue to ensure safety for pt. Pt is alert and oriented x 4 and uses the call light as n eeded. Room is free of clutter and bedside table is in reach. Hourly rounding is in progress . lan o f Care - Conversion Transaction, Provider Unknown - 06/10/2018 5:42 PM PDTFormatting of thi s note might be different from the original. Plan of Care by Karen Pacheco RN at 06/10/181741 Author: Karen Pacheco RN Service: (none) Author Type: Registered Nurse Filed: 06/10/181741 Date of Service: 06/10/181741 Status: Signed Brake Rider: Karen Pacheco RN (Registered Nurse) Problem: Safety Goal: Patient will be injury free during hospitalization Assess and monitor vitals signs, neurological status including level of consciousness and o rientation. Assess patient's risk for falls and implement fall prevention plan of care and i nterventions per hospital policy. Ensure arm band on, uncluttered walking paths in room, adequate room lighting, call light a nd overbed table within reach, bed in low position, wheels locked, side rails up per policy, and non-skid footwear provided. Outcome: Progressing Patient sitting up in bed, no sign of distress. Vital signs are stable. Afebrile. Denies pa in when asked. Patient calls appropriately. Call button within reach. HOB up 35 deg. Siderai l up x2. Family at bedside. Pathway is cleared of clutter. Non-skid socks on. Bed in lowest position. Wheels are locked. Will continue to monitor patient. Karen Pacheco RN lan o f Care - Conversion Transaction, Provider Unknown - 06/09/2018 10:08 PM PDTFormatting of thi s note might be different from the original. Plan of Care by Marialuisa Acuna RN at 06/09/182207 Author: Marialuisa Acuna RN Service: (none) Author Type: Registered Nurse Filed: 06/09/182207 Date of Service: 06/09/182207 Status: Signed Brake Rider: Marialuisa Acuna RN (Registered Nurse) Problem: Pain Goal: Patient's pain/discomfort is manageable Assess and monitor patient's pain using appropriate pain scale. Collaborate with interdisci plinary team and initiate plan and interventions as ordered. Re-assess patient's pain level approximately 1-2 hours after pain management intervention. Premedicate as needed. Outcome: Progressing Pt continues to have chronic back pain and pt is taking pain medication as ordered. Pain is re assessed 1-2 hours post intervention. lan o f Care - Conversion Transaction, Provider Unknown - 06/09/2018 10:47 AM PDTFormatting of thi s note might be different from the original. Plan of Care by Karen Pacheco RN at 06/09/181046 Author: Karen Pacheco RN Service: (none) Author Type: Registered Nurse Filed: 06/09/181046 Date of Service: 06/09/181046 Status: Signed Brake Rider: Karen Pacheco RN (Registered Nurse) Problem: Safety Goal: Patient will be injury free during hospitalization Assess and monitor vitals signs, neurological status including level of consciousness and o rientation. Assess patient's risk for falls and implement fall prevention plan of care and i nterventions per hospital policy. Ensure arm band on, uncluttered walking paths in room, adequate room lighting, call light a nd overbed table within reach, bed in low position, wheels locked, side rails up per policy, and non-skid footwear provided. Outcome: Progressing Patient sitting up in bed, no sign of distress. Vital signs are stable. Afebrile. Denies pa in when asked. Patient calls appropriately. Call button within reach. HOB up 35 deg. Siderai l up x2. Pathway is cleared of clutter. Non-skid socks on. Bed in lowest position. Wheels ar e locked. Will continue to monitor patient. Karen Pacheco RN lan o f Care - Conversion Transaction, Provider Unknown - 06/08/2018 10:17 PM PDTFormatting of thi s note might be different from the original. Plan of Care by Marialuisa Acuna RN at 06/08/182216 Author: Marialuisa Acuna RN Service: (none) Author Type: Registered Nurse Filed: 06/08/182219 Date of Service: 06/08/182216 Status: Signed Brake Rider: Marialuisa Acuna RN (Registered Nurse) All safety precautions are in place. Pt is alert and oriented x 4. Call light in reach, bed side table in reach, and room is free of clutter. Pt is using a FWW when ambulating, pt is r eminded to continue to use sternal precautions and call for assist when getting out of bed. Pt c/o of chronic back pain and is taking pain medication as prescribed. Pain is re assessed 1-2 hours post intervention. lan o f Care - Conversion Transaction, Provider Unknown - 06/08/2018 11:18 AM PDTFormatting of thi s note might be different from the original. Plan of Care by Itzel Crawford RN at 06/08/188 Author: Itzel Crawford RN Service: (none) Author Type: Registered Nurse Filed: 06/08/18 1123 Date of Service: 06/08/188 Status: Signed Brake Rider: Itzel Crawford RN (Registered Nurse) Daily Care Daily care needs are met Progressing Discharge Barriers Patient's discharge needs are met Progressing Inadequate Coping Demonstrates ability to cope effectively Progressing Verbalizes adaptive coping mechanisms Progressing Verbalizes personal strengths Progressing Knowledge Deficit Patient/family/caregiver demonstrates understanding of disease process, treatment plan, medications, and discharge instructions Progressing Pain Patient's pain/discomfort is manageable Progressing Psychosocial Needs Demonstrates ability to cope with hospitalization/illness Progressing Collaborate with patient/family/caregiver to identify patient specific goals for this h ospitalization Progressing Safety Patient will be injury free during hospitalization Progressing Self-care/Dynamic Activity STG - Address ADL concerns as they arise Progressing Patient continues to be independent. Requires frequent reminders of sternal precautions. An tibiotics continue per doctor order. Itzel Crawford RN 06/08/18 @ 1123 lan o f Care - Conversion Transaction, Provider Unknown - 06/08/2018 12:10 AM PDTFormatting of thi s note might be different from the original. Plan of Care by Meliton Bello RN at 06/08/18 001 Author: Meliton Bello RN Service: (none) Author Type: Registered Nurse Filed: 06/08/189 Date of Service: 06/08/189 Status: Signed Brake Rider: Meliton Bello RN (Registered Nurse) Daily Care Daily care needs are met Progressing Daily care needs provided PRN during hourly rounding. Pain Patient's pain/discomfort is manageable Progressing Patient states pain is tolerable with current medication regimen. lan o f Care - Conversion Transaction, Provider Unknown - 06/07/2018 12:24 PM PDTFormatting of thi s note might be different from the original. Plan of Care by María Gutierrez RN at 06/07/181223 Author: María Gutierrez RN Service: (none) Author Type: Registered Nurse Filed: 06/07/181223 Date of Service: 06/07/181223 Status: Signed Brake Rider: María Gutierrez RN (Registered Nurse) Problem: Pain Goal: Patient's pain/discomfort is manageable Assess and monitor patient's pain using appropriate pain scale. Collaborate with interdisci plinary team and initiate plan and interventions as ordered. Re-assess patient's pain level approximately 1-2 hours after pain management intervention. Premedicate as needed. Outcome: Progressing Pt is aware of pain medication dosing and states the timing is controlling pain adequately iradha sethi - Conversion Transaction, Provider Unknown - 06/07/2018 10:57 AM PDTFormatting of th is note might be different from the original. Treatment Plan by Jessy Sarabia PT at 06/07/18 1051 Author: Jessy Sarabia PT Service: (none) Author Type: Physical Therapist Filed: 06/07/18 1128 Date of Service: 06/07/181056 Status: Signed Brake Rider: Jessy Sarabia PT (Physical Therapist) PHYSICAL THERAPY EVALUATION PT Received On: 06/07/18 Reason for Treatment: Deconditioning, Cardiac Requires PT Follow Up: Yes Follow up PT Only?: No PT Eval/Reassessment Date: 06/07/18 Assistance Required: 1 person Recommendations: SNF PT Ready for Discharge: Yes Recommendation Comments: Pt continues to be in a physical state that he uses his UEs d/t no t having strong enough LE strength to perform activities without use of UEs. Constant educat ion to follow precautions. Pt not safe to d/c home alone at this time and continue to recomm end skilled therapy to address LE strength & safety with mobility. Plan Treatment/Interventions: Continue per Primary PT POC Progress: Progressing toward goals PT Frequency: 3-5x/wk Care Duration (# of days): 7 # of days Summary Comments: Pt sitting in chair on arrival. Pt agreeable to PT. pt continues to often not fol low precautions, even through education as to why. Pt was reliant on using his UE to go up t he stairs. Pt did realize his LEs are not strong and thus he is using his UEs more than he s hould. D/w pt that he needs to start performing sit to stand from 4ww 5 reps each, 3x/day to build LE strength. Once that becomes easy, he needs to do 10 reps in a row. D/w RN. Pt left sitting in recliner chair w/call light in reach. Precautions Spinal Precautions: TLSO on when upright Cardiac Precautions: Sternal Other Precautions: fall risk Cognition Overall Cognitive Status: Within Functional Limits Orientation Level: Oriented FUNCTIONAL MOBILITY Bed Mobility Supine to Sit: Supervision Sit to Supine: Modified independent Transfers Sit to/from Stand: Standby assist, Verbal instruction (performed sit to stand 5x from 4ww) Bed to/from Chair: Supervision Ambulation Maximal Ambulation Distance (feet): 150x2 Total Ambulation Distance (feet): 300 Ambulation Assistance: Supervision, Verbal instruction Distance limited by?: Therapist/staff discretion Pattern: Alternating, Decreased leighton Assistive Device: Walker 4 wheeled Stairs Number of Stairs: 3 up/down Stairs Assistance: Verbal instruction, Minimal assist Number of stairs limited by?: Patient's ability Stair Management Technique: Step-to, Rail on left ascending Activity Tolerance: Patient tolerated treatment without report of fatigue Nurse Made Aware: D/w BETTIE Daniel in-person Safety Devices in Place: (call light in reach) The patient demonstrated no indication of pain during therapy session. Education Completed: Education Topics: [x] Rationale for PT [x] PT POC [x] DC planning [x] Precautions [x] Exercises [x] Bed mobility [x] Transfer training with hand placement [x] Gait training [x] Stair training [] Use of gait belt [x] Other Completed with: [x] Patient [] Spouse [] Significant other [] Family [] C aregiver [] Other Completed by: [x] Verbal education [x] Demonstration [] Handout [] Other: Response to Education: [x] Stated Understanding [x] Reinforcement necessary [] Returned demonstration [] Demonstrated understanding [] No evidence of learning [] Refused Physical Therapy Goals PT Goals Pt Will Go Supine To Sit: Independently Pt Will Go Sit To Supine: Independently Pt Will Transfer Sit to Stand: With modified independence Pt Will Transfer Bed/Chair: With modified independence Pt Will Ambulate: greater than 500 feet Ambulate Level Assist: With supervision Ambulate with Assistive Device: Least restricitve device Pt Will Go Up / Down Stairs: 3-5 stairs Stairs Level of Assist: With supervision lan o f Care - Conversion Transaction, Provider Unknown - 06/07/2018 2:43 AM PDTFormatting of thi s note might be different from the original. Plan of Care by Elisha Lima RN at 06/07/18242 Author: Elisha Lima RN Service: (none) Author Type: Registered Nurse Filed: 06/07/18242 Date of Service: 06/07/18242 Status: Signed Brake Rider: Elisha Lima RN (Registered Nurse) Problem: Safety Goal: Patient will be injury free during hospitalization Assess and monitor vitals signs, neurological status including level of consciousness and o rientation. Assess patient's risk for falls and implement fall prevention plan of care and i nterventions per hospital policy. Ensure arm band on, uncluttered walking paths in room, adequate room lighting, call light a nd overbed table within reach, bed in low position, wheels locked, side rails up per policy, and non-skid footwear provided. Outcome: Progressing Pt has call light within reach, over bed table within reach and side rails up per policy. lan o f Care - Conversion Transaction, Provider Unknown - 06/06/2018 5:11 PM PDTFormatting of thi s note might be different from the original. Plan of Care by María Gutierrez RN at 06/06/181710 Author: María Gutierrez RN Service: (none) Author Type: Registered Nurse Filed: 06/06/181710 Date of Service: 06/06/181710 Status: Signed Brake Rider: María Gutierrez RN (Registered Nurse) Problem: Pain Goal: Patient's pain/discomfort is manageable Assess and monitor patient's pain using appropriate pain scale. Collaborate with interdisci plinary team and initiate plan and interventions as ordered. Re-assess patient's pain level approximately 1-2 hours after pain management intervention. Premedicate as needed. Outcome: Progressing Pt's pain is appropriately lessened in response to pain medication administration lan o f Care - Conversion Transaction, Provider Unknown - 06/05/2018 10:42 PM PDTFormatting of thi s note might be different from the original. Plan of Care by Alonso Pickett RN at 06/05/18 8409 Author: Alonso Pickett RN Service: (none) Author Type: Registered Nurse Filed: 06/05/182241 Date of Service: 06/05/182241 Status: Signed Brake Rider: Alonso Pickett RN (Registered Nurse) Problem: Pain Goal: Patient's pain/discomfort is manageable Assess and monitor patient's pain using appropriate pain scale. Collaborate with interdisci plinary team and initiate plan and interventions as ordered. Re-assess patient's pain level approximately 1-2 hours after pain management intervention. Premedicate as needed. Outcome: Progressing Assessed pt's pain q 4 hrs. Pain management intervention prn. lan o f Care - Conversion Transaction, Provider Unknown - 06/05/2018 6:53 PM PDTFormatting of thi s note might be different from the original. Plan of Care by Michelle Gutierrez RN at 06/05/181852 Author: Michelle Gutierrez RN Service: (none) Author Type: Registered Nurse Filed: 06/05/181853 Date of Service: 06/05/181852 Status: Signed Brake Rider: Michelle Gutierrez RN (Registered Nurse) Daily Care Daily care needs are met Progressing Discharge Barriers Patient's discharge needs are met Progressing Inadequate Coping Demonstrates ability to cope effectively Progressing Verbalizes adaptive coping mechanisms Progressing Verbalizes personal strengths Progressing Knowledge Deficit Patient/family/caregiver demonstrates understanding of disease process, treatment plan, medications, and discharge instructions Progressing Pain Patient's pain/discomfort is manageable Progressing Psychosocial Needs Demonstrates ability to cope with hospitalization/illness Progressing Collaborate with patient/family/caregiver to identify patient specific goals for this h ospitalization Progressing Safety Patient will be injury free during hospitalization Progressing Self-care/Dynamic Activity STG - Address ADL concerns as they arise Progressing Pt alert and oriented, up to chair most of day. Pt c/o chronic back pain and requesting pr n oxycodone as available. Pt up to toilet and ambulating in room independently. Chart check completed. lan o f Care - Conversion Transaction, Provider Unknown - 06/04/2018 2:45 PM PDTFormatting of thi s note might be different from the original. Plan of Care by Paty Grant RN at 06/04/18 2387 Author: Paty Grant RN Service: (none) Author Type: Registered Nurse Filed: 06/04/18 1445 Date of Service: 06/04/181444 Status: Signed Brake Rider: Paty Grant RN (Registered Nurse) Problem: Pain Goal: Patient's pain/discomfort is manageable Assess and monitor patient's pain using appropriate pain scale. Collaborate with interdisci plinary team and initiate plan and interventions as ordered. Re-assess patient's pain level approximately 1-2 hours after pain management intervention. Premedicate as needed. Outcome: Progressing Pain is being managed with PRN medications available. Will continue to monitor. Problem: Safety Goal: Patient will be injury free during hospitalization Assess and monitor vitals signs, neurological status including level of consciousness and o rientation. Assess patient's risk for falls and implement fall prevention plan of care and i nterventions per hospital policy. Ensure arm band on, uncluttered walking paths in room, adequate room lighting, call light a nd overbed table within reach, bed in low position, wheels locked, side rails up per policy, and non-skid footwear provided. Outcome: Progressing Pt uses call light appropriately. Bed in low position and locked. Adequate lighting in room . lan o f Care - Conversion Transaction, Provider Unknown - 06/03/2018 12:13 PM PDTFormatting of thi s note might be different from the original. Plan of Care by Soniya Duron RN at 06/03/18 614 Author: Soniya Duron RN Service: (none) Author Type: Registered Nurse Filed: 06/03/18 121 Date of Service: 06/03/181212 Status: Signed Brake Rider: Soniya Duron RN (Registered Nurse) Problem: Safety Goal: Patient will be injury free during hospitalization Assess and monitor vitals signs, neurological status including level of consciousness and o rientation. Assess patient's risk for falls and implement fall prevention plan of care and i nterventions per hospital policy. Ensure arm band on, uncluttered walking paths in room, adequate room lighting, call light a nd overbed table within reach, bed in low position, wheels locked, side rails up per policy, and non-skid footwear provided. Outcome: Progressing Patient has remained injury free throughout this hospitalization ialecdolores sethi - Conversion Transaction, Provider Unknown - 06/03/2018 12:04 PM PDTFormatting of th is note might be different from the original. Treatment Plan by Jessy Sarabia PT at 06/03/18 1204 Author: Jessy Sarabia PT Service: (none) Author Type: Physical Therapist Filed: 06/03/18 124 Date of Service: 06/03/18 1204 Status: Signed Brake Rider: Jessy Sarabia PT (Physical Therapist) PHYSICAL THERAPY TREATMENT NOTE PT Received On: 06/03/18 Reason for Treatment: Deconditioning, Cardiac Requires PT Follow Up: Yes Follow up PT Only?: No Assistance Required: 1 person Recommendations: SNF PT Ready for Discharge: Yes Plan Treatment/Interventions: Continue per Primary PT POC Progress: Progressing toward goals Summary Comments: Pt sitting up in recliner on arrival. Pt states he'd been up amb earlier in the a m. Pt agreeable to PT. When reviewing all precautions, pt assured PT he was aware of all his precautions, yet reaches behind him, pushes up into standing with his R elbow and pushes do wn on his 4ww with UEs. Again, pt assured PT that he was barely putting pressure through UEs when amb, although when tested, he pushing through UEs more than 10lbs. Pt encouraged to am b 5x/day w/SBA to increase activity level, as well as build strength in bilat LEs, thus redu ce use of UEs in all activity. Educ pt on how to better don his LSO to reduce stress on ster num. Pt left sitting in recliner at end of tx with call light in reach. Precautions Spinal Precautions: TLSO on when upright Cardiac Precautions: Sternal Other Precautions: fall risk Cognition Overall Cognitive Status: Within Functional Limits Orientation Level: Oriented FUNCTIONAL MOBILITY Bed Mobility Scooting : Verbal instruction, Supervision - Transfers Sit to/from Stand: Minimal assist (steadying/contact guard), Standby assist, Verbal instruc tion (performed sit to stand 5x from 4ww for exercise) Bed to/from Chair: Standby assist, Verbal instruction Ambulation Maximal Ambulation Distance (feet): 150x2, 200 Total Ambulation Distance (feet): 500 Ambulation Assistance: Standby assist, Verbal instruction Distance limited by?: Patient's ability Pattern: Alternating, Decreased leighton, Forward flexed Assistive Device: Walker 4 wheeled Activity Tolerance: Patient tolerated treatment without report of fatigue Nurse Made Aware: D/w RN Soniya in-person Safety Devices in Place: (call light in reach) The patient reported pain rated at a 6.5/10. RN was notified (yes). Other measures provided to relieve pts pain included: denied need for meds, positioned for comfort Education Completed: Education Topics: [x] Rationale for PT [x] PT POC [] DC planning [x] Precautions [x] Exercises [] Bed mobility [x] Transfer training with hand placement [x] Gait training [] Stair training [] Use of gait belt [x] Other Completed with: [x] Patient [] Spouse [] Significant other [] Family [] C aregiver [] Other Completed by: [x] Verbal education [] Demonstration [] Handout [] Other: Response to Education: [x] Stated Understanding [x] Reinforcement necessary [] Returned demonstration [] Demonstrated understanding [] No evidence of learning [] Refused Pre/Peak/Post Position BP Pulse rate O2 sats L/min Pain complaint Pain intervention pre sitting 123/70 75 98% RA post sitting 142/75 77 98% RA 6.5 Denied need for pain meds lan o f Care - Conversion Transaction, Provider Unknown - 06/02/2018 11:32 PM PDTFormatting of thi s note might be different from the original. Plan of Care by Leigh Young RN at 06/02/182331 Author: Leigh Young RN Service: (none) Author Type: Registered Nurse Filed: 06/03/18 0650 Date of Service: 06/02/182331 Status: Addendum Brake Rider: Leigh Young RN (Registered Nurse) Related Notes: Original Note by Leigh Young RN (Registered Nurse) filed at 3577 No acute changes this shift. End of shift chart check complete. Problem: Safety Goal: Patient will be injury free during hospitalization Assess and monitor vitals signs, neurological status including level of consciousness and o rientation. Assess patient's risk for falls and implement fall prevention plan of care and i nterventions per hospital policy. Ensure arm band on, uncluttered walking paths in room, adequate room lighting, call light a nd overbed table within reach, bed in low position, wheels locked, side rails up per policy, and non-skid footwear provided. Outcome: Progressing Pt continues to use call light appropriately. Walking path remains uncluttered, non-skid so cks in place, bed in low position, 2/4 side rails up, call light in reach. lan o f Care - Conversion Transaction, Provider Unknown - 06/02/2018 11:15 AM PDTFormatting of thi s note might be different from the original. Plan of Care by Soniya Duron RN at 06/02/181114 Author: Soniya Duron RN Service: (none) Author Type: Registered Nurse Filed: 06/02/181114 Date of Service: 06/02/181114 Status: Signed Brake Rider: Soniya Duron RN (Registered Nurse) Problem: Pain Goal: Patient's pain/discomfort is manageable Assess and monitor patient's pain using appropriate pain scale. Collaborate with interdisci plinary team and initiate plan and interventions as ordered. Re-assess patient's pain level approximately 1-2 hours after pain management intervention. Premedicate as needed. Outcome: Progressing Patients pain has been well managed with 10 mg oxycodone q4h lan o f Care - Conversion Transaction, Provider Unknown - 06/01/2018 10:21 PM PDTFormatting of thi s note might be different from the original. Plan of Care by Alonso Pickett RN at 06/01/182220 Author: Alonso Pickett RN Service: (none) Author Type: Registered Nurse Filed: 06/01/182220 Date of Service: 06/01/182220 Status: Signed Brake Rider: Alonso Pickett RN (Registered Nurse) Problem: Pain Goal: Patient's pain/discomfort is manageable Assess and monitor patient's pain using appropriate pain scale. Collaborate with interdisci plinary team and initiate plan and interventions as ordered. Re-assess patient's pain level approximately 1-2 hours after pain management intervention. Premedicate as needed. Outcome: Progressing Assessed pt's pain q 4 hrs. Pain management intervention prn and according to pain score. lan o f Care - Conversion Transaction, Provider Unknown - 06/01/2018 6:50 PM PDTFormatting of thi s note might be different from the original. Plan of Care by Beatrice Rubio RN at 06/01/181849 Author: Beatrice Rubio RN Service: (none) Author Type: Registered Nurse Filed: 06/01/181849 Date of Service: 06/01/181849 Status: Signed Brake Rider: Beatrice Rubio RN (Registered Nurse) Problem: Pain Goal: Patient's pain/discomfort is manageable Assess and monitor patient's pain using appropriate pain scale. Collaborate with interdisci plinary team and initiate plan and interventions as ordered. Re-assess patient's pain level approximately 1-2 hours after pain management intervention. Premedicate as needed. Outcome: Progressing Pt reports pain is being managed at this time with PRN pain medication. Problem: Safety Goal: Patient will be injury free during hospitalization Assess and monitor vitals signs, neurological status including level of consciousness and o rientation. Assess patient's risk for falls and implement fall prevention plan of care and i nterventions per hospital policy. Ensure arm band on, uncluttered walking paths in room, adequate room lighting, call light a nd overbed table within reach, bed in low position, wheels locked, side rails up per policy, and non-skid footwear provided. Outcome: Progressing Pt's room free of clutter, call light within reach, bed in low position and wheels locked. lan o f Care - Conversion Transaction, Provider Unknown - 06/01/2018 2:19 AM PDTFormatting of thi s note might be different from the original. Plan of Care by Alonso Pickett RN at 06/01/18218 Author: Alonso Pickett RN Service: (none) Author Type: Registered Nurse Filed: 06/01/18218 Date of Service: 06/01/18218 Status: Signed Brake Rider: Alonso Pickett RN (Registered Nurse) Problem: Pain Goal: Patient's pain/discomfort is manageable Assess and monitor patient's pain using appropriate pain scale. Collaborate with interdisci plinary team and initiate plan and interventions as ordered. Re-assess patient's pain level approximately 1-2 hours after pain management intervention. Premedicate as needed. Outcome: Progressing Assessed pt's pain q 4 hrs. Pain management intervention prn. iDenisha Arita PT - 05/31/2018 1:47 PM PDTFormatting of this note might be differ ent from the original. Treatment Plan by Denisha Parry PT at 05/31/181346 Author: Denisha Parry PT Service: (none) Author Type: Physical Therapist Filed: 05/31/18 180 Date of Service: 05/31/181346 Status: Signed Brake Rider: Denisha Parry PT (Physical Therapist) PHYSICAL THERAPY EVALUATION PT Received On: 05/31/18 Reason for Treatment: Deconditioning, Cardiac Requires PT Follow Up: Yes Follow up PT Only?: No PT Eval/Reassessment Date: 05/31/18 Assistance Required: 1 person Recommendations: SNF PT Ready for Discharge: Yes Plan Treatment/Interventions: Continue per Primary PT POC (decr POC as pt is >2wks post-op and S BA for most tasks) PT Frequency: 3-5x/wk Care Duration (# of days): 7 # of days Summary Comments: Pt up in recliner with hospitalist present examining him when PT arrived, agreeab le to therapy. Denies pain. Requests to use BR prior to mobilizing; assist needed to don s hoes and TLSO. After voiding in seated on toilet, pt ambulated around unit with 4WW and 2x seated rest break on walker. Pt requires cues 100% of the time not to push up with UEs to t ransfer and for locking brakes for safe walker management. Pt was assisted back to recliner after mobilizing with no new complaints. Goals and POC reassessment completed today. Pre/Peak/Post Position BP Pulse rate O2 sats L/min Pain complaint Pain intervention Pre Seated 124/72 69 96 RA Denies pain Post Seated 81 98 Precautions Spinal Precautions: TLSO on when upright Cardiac Precautions: Sternal Other Precautions: Fall risk Cognition Overall Cognitive Status: Within Functional Limits Orientation Level: Oriented FUNCTIONAL MOBILITY Bed Mobility Scooting : Supervision Transfers Sit to/from Stand: Standby assist, Verbal instruction Ambulation Maximal Ambulation Distance (feet): 20, 150 x 3 Total Ambulation Distance (feet): 470 Ambulation Assistance: Standby assist Distance limited by?: Patient's ability Pattern: Alternating, Decreased leighton, Forward flexed Assistive Device: Walker 4 wheeled BALANCE Static Sitting Balance Static Sitting-Balance Support: Feet supported Static Sitting-Level of Assistance: Supervision Static Sitting-Comment/Duration: 5 min on toilet Activity Tolerance: Patient tolerated treatment without report of fatigue Nurse Made Aware: Yes BETTIE Armando Safety Devices in Place: (call light/needs in reach, RN aware) The patient demonstrated no indication of pain during therapy session. Education Completed: Education Topics: [x] Rationale for PT [x] PT POC [x] DC planning [x] Precautions [] Exercises [] Bed mobility [x] Transfer training with hand placement [x] Gait training [] Stair training [x] Use of gait belt [] Other Completed with: [x] Patient [] Spouse [] Significant other [] Family [] C aregiver [] Other Completed by: [x] Verbal education [x] Demonstration [] Handout [] Other: Response to Education: [] Stated Understanding [] Reinforcement necessary [] Returned demonstration [] Demonstrated understanding [x] No evidence of learning [] Refused Physical Therapy Goals PT Goals Goal Formulation: With patient Pt Will Go Supine To Sit: With moderate assist, With minimal assist, Partly met Pt Will Go Sit To Supine: With moderate assist, With minimal assist, Partly met Pt Will Transfer Sit to Stand: With standby assist, Met, New / revised goal, With supervisi on Pt Will Transfer Bed/Chair: With supervision, Not met, With minimal assist, Met Pt Will Ambulate: greater than 200 feet, Met, New / revised goal, greater than 500 feet Ambulate Level Assist: With supervision, Not met, With standby assist, Met Ambulate with Assistive Device: Least restricitve device Pt Will Go Up / Down Stairs: 1-2 stairs, Not met lan of Care - Convers ion Transaction, Provider Unknown - 05/31/2018 10:23 AM PDT Plan of Care by Johnny Horne RN at 05/31/181022 Author: Johnny Horne RN Service: (none) Author Type: Registered Nurse Filed: 05/31/181022 Date of Service: 05/31/181022 Status: Signed Brake Rider: Johnny Horne RN (Registered Nurse) Problem: Safety Goal: Patient will be injury free during hospitalization Assess and monitor vitals signs, neurological status including level of consciousness and o rientation. Assess patient's risk for falls and implement fall prevention plan of care and i nterventions per hospital policy. Ensure arm band on, uncluttered walking paths in room, adequate room lighting, call light a nd overbed table within reach, bed in low position, wheels locked, side rails up per policy, and non-skid footwear provided. Outcome: Progressing Pt asked to call before getting up. Pt uses call button appropriately. Call button within reach. Continue to monitor. lan o f Care - Conversion Transaction, Provider Unknown - 05/30/2018 10:38 PM PDTFormatting of thi s note might be different from the original. Plan of Care by Alonso Pickett RN at 05/30/182237 Author: Alonso Pickett RN Service: (none) Author Type: Registered Nurse Filed: 05/30/182237 Date of Service: 05/30/182237 Status: Signed Brake Rider: Alonso Pickett RN (Registered Nurse) Problem: Pain Goal: Patient's pain/discomfort is manageable Assess and monitor patient's pain using appropriate pain scale. Collaborate with interdisci plinary team and initiate plan and interventions as ordered. Re-assess patient's pain level approximately 1-2 hours after pain management intervention. Premedicate as needed. Outcome: Progressing Assessed pt's pain q 4 hrs. Pain management intervention prn. iDenisha Arita, PT - 05/30/2018 9:20 AM PDTFormatting of this note might be differ ent from the original. Treatment Plan by Denisha Parry PT at 05/30/18919 Author: Denisha Parry PT Service: (none) Author Type: Physical Therapist Filed: 05/30/18 1010 Date of Service: 05/30/18919 Status: Signed Brake Rider: Denisha Parry PT (Physical Therapist) PHYSICAL THERAPY TREATMENT NOTE PT Received On: 05/30/18 Reason for Treatment: Cardiac Requires PT Follow Up: Yes Follow up PT Only?: No Assistance Required: 1 person Recommendations: SNF PT Ready for Discharge: Yes Plan Treatment/Interventions: Continue per Primary PT POC Progress: Progressing toward goals Summary Comments: Pt resting in recliner and agreeable to therapy, reports pain 7/10 in sternum wit h RN present and aware. VS at rest BP 117/74 HR 77 SpO2 98% on RA. pt requests to don darden ts prior to mobilizing, needs extra time and constant reminders for sternal precautions; jaylen n while adjusting pants behind him pt instructed to maintain precautions and replies "I am." pt assisted with donning TLSO and requests to perform grooming prior to ambulating. He sa t on 4WW in front of sink to clip castro and wash face with washcloth. Pt again needing cons tant reminders not to reach behind head, etc, related to precautions. Pt ambulated lap arou nd unit with 2x seated rest breaks on walker, he needed instruction for safety as he impulsi vely tries to sit/stand before walker is locked and safely braced. pt eventually returned t o seated in recliner with needs placed in reach and no new complaints. RN aware of VS respo nse to activity and pain. (VS post activity: HR90 BP 170/80 Spo2 99% on RA) Precautions Spinal Precautions: TLSO on when upright Cardiac Precautions: Sternal Other Precautions: Fall risk Cognition Overall Cognitive Status: Within Functional Limits Orientation Level: Oriented FUNCTIONAL MOBILITY Bed Mobility Scooting : Standby assist, Verbal instruction - Transfers Sit to/from Stand: Minimal assist (steadying/contact guard), Verbal instruction (cues for w alker safety- sits w/ brakes unlocked) Ambulation Maximal Ambulation Distance (feet): 20, 200, 250 Total Ambulation Distance (feet): 470 Ambulation Assistance: Standby assist Distance limited by?: Patient's ability Pattern: Alternating, Decreased leighton, Forward flexed (cues for upright trunk, decr WBing on UEs) Assistive Device: Walker 4 wheeled BALANCE Balance: Yes Static Sitting Balance Static Sitting-Balance Support: Feet supported Static Sitting-Level of Assistance: Supervision Static Sitting-Comment/Duration: 3 min Dynamic Sitting Balance Dynamic Sitting-Balance Support: Feet supported Dynamic Sitting-Balance: Reaching for objects, Lateral lean, Forward lean Sitting Dynamic Level of Assist: Supervision Dynamic Sitting-Comments/Duration: 7 min Activity Tolerance: Patient limited by fatigue Nurse Made Aware: yes BETTIE Turner Safety Devices in Place: (call light/needs in reach, RN aware) Restraints Initially in Place: No Education Completed: Education Topics: [x] Rationale for PT [x] PT POC [x] DC planning [x] Precautions [] Exercises [] Bed mobility [x] Transfer training with hand placement [x] Gait training [] Stair training [x] Use of gait belt [] Other Completed with: [x] Patient [] Spouse [] Significant other [] Family [] C aregiver [] Other Completed by: [x] Verbal education [x] Demonstration [] Handout [] Other: Response to Education: [] Stated Understanding [x] Reinforcement necessary [] Returned demonstration [] Demonstrated understanding [x] No evidence of learning [] Refused lan of Care - Convers ion Transaction, Provider Unknown - 05/30/2018 7:53 AM PDT Plan of Care by Johnny Horne RN at 05/30/18752 Author: Johnny Horne RN Service: (none) Author Type: Registered Nurse Filed: 05/30/18752 Date of Service: 05/30/18752 Status: Signed Brake Rider: Johnny Horne RN (Registered Nurse) Problem: Safety Goal: Patient will be injury free during hospitalization Assess and monitor vitals signs, neurological status including level of consciousness and o rientation. Assess patient's risk for falls and implement fall prevention plan of care and i nterventions per hospital policy. Ensure arm band on, uncluttered walking paths in room, adequate room lighting, call light a nd overbed table within reach, bed in low position, wheels locked, side rails up per policy, and non-skid footwear provided. Outcome: Progressing Pt asked to call before getting up. Pt uses call button appropriately. Call button within reach. Continue to monitor. lan o f Care - Conversion Transaction, Provider Unknown - 05/29/2018 10:35 PM PDTFormatting of thi s note might be different from the original. Plan of Care by Anmol Hobbs RN at 05/29/182234 Author: Anmol Hobbs RN Service: (none) Author Type: Registered Nurse Filed: 05/29/182234 Date of Service: 05/29/182234 Status: Signed Brake Rider: Anmol Hobbs RN (Registered Nurse) Problem: Daily Care Goal: Daily care needs are met Assess and monitor ability to perform self care and identify potential discharge needs. Outcome: Progressing Assist with daily cares. Encourage independence with tasks as possible. Re-enforce import ance of IS use and sternal precautions. lan o f Care - Conversion Transaction, Provider Unknown - 05/29/2018 1:03 PM PDTFormatting of thi s note might be different from the original. Plan of Care by Johnny Horne RN at 05/29/18 130 Author: Johnny Horne RN Service: (none) Author Type: Registered Nurse Filed: 05/29/181302 Date of Service: 05/29/181302 Status: Signed Brake Rider: Johnny Horne RN (Registered Nurse) Problem: Safety Goal: Patient will be injury free during hospitalization Assess and monitor vitals signs, neurological status including level of consciousness and o rientation. Assess patient's risk for falls and implement fall prevention plan of care and i nterventions per hospital policy. Ensure arm band on, uncluttered walking paths in room, adequate room lighting, call light a nd overbed table within reach, bed in low position, wheels locked, side rails up per policy, and non-skid footwear provided. Outcome: Progressing Pt asked to call before getting up. Pt uses call button appropriately. Call button within reach. Continue to monitor. lan o f Care - Conversion Transaction, Provider Unknown - 05/28/2018 11:53 PM PDTFormatting of thi s note might be different from the original. Plan of Care by Christina Day RN at 05/28/182352 Author: Christina Day RN Service: (none) Author Type: Registered Nurse Filed: 05/28/18 002 Date of Service: 05/28/182352 Status: Signed Brake Rider: Christina Day RN (Registered Nurse) Patient's pain/discomfort is manageable Progressing PO meds decrease pain. Pt calls when needed lan o f Care - Conversion Transaction, Provider Unknown - 05/28/2018 12:32 PM PDTFormatting of thi s note might be different from the original. Plan of Care by Patsy Benedict RN at 05/28/18 2072 Author: Patsy Benedict RN Service: (none) Author Type: Registered Nurse Filed: 05/28/18 1236 Date of Service: 05/28/18 123 Status: Signed Brake Rider: Patsy Benedict RN (Registered Nurse) Patient's pain/discomfort is manageable Progressing Pt pain being addressed. Medication given per order set. Pain improving. No concerns at thi s time. Patient will be injury free during hospitalization Progressing Pt free from falls and injury. Call light being used appropriately. Yellow non-skid socks i n place. Safety alarms being used as needed. No safety concerns at this time. lan o f Care - Conversion Transaction, Provider Unknown - 05/28/2018 3:57 AM PDTFormatting of thi s note might be different from the original. Plan of Care by Scarlet Castrejon RN at 05/28/18356 Author: Scarlet Castrejon RN Service: (none) Author Type: Registered Nurse Filed: 05/28/18356 Date of Service: 05/28/18356 Status: Signed Brake Rider: Scarlet Castrejon RN (Registered Nurse) Problem: Pain Goal: Patient's pain/discomfort is manageable Assess and monitor patient's pain using appropriate pain scale. Collaborate with interdisci plinary team and initiate plan and interventions as ordered. Re-assess patient's pain level approximately 1-2 hours after pain management intervention. Premedicate as needed. Outcome: Progressing Patient states relief after PRN pain medication and has been seen sleeping during most roun ding. Problem: Safety Goal: Patient will be injury free during hospitalization Assess and monitor vitals signs, neurological status including level of consciousness and o rientation. Assess patient's risk for falls and implement fall prevention plan of care and i nterventions per hospital policy. Ensure arm band on, uncluttered walking paths in room, adequate room lighting, call light a nd overbed table within reach, bed in low position, wheels locked, side rails up per policy, and non-skid footwear provided. Outcome: Progressing Patient A&O x4, calls appropriately. Fall precautions in place. No injury this shift. lan o f Care - Conversion Transaction, Provider Unknown - 05/27/2018 2:53 PM PDTFormatting of thi s note might be different from the original. Plan of Care by Sallie Mejia RN at 05/27/181452 Author: Sallie Mejia RN Service: (none) Author Type: Registered Nurse Filed: 05/27/181452 Date of Service: 05/27/181452 Status: Signed Brake Rider: Sallie Mejia RN (Registered Nurse) Problem: Pain Goal: Patient's pain/discomfort is manageable Assess and monitor patient's pain using appropriate pain scale. Collaborate with interdisci plinary team and initiate plan and interventions as ordered. Re-assess patient's pain level approximately 1-2 hours after pain management intervention. Premedicate as needed. Outcome: Progressing Pain is well controlled with PRN medication and interventions. He continues to monitor own pain levels appropriately. lan o f Care - Conversion Transaction, Provider Unknown - 05/26/2018 8:53 PM PDTFormatting of shey s note might be different from the original. Plan of Care by Stephanie Lutz RN at 05/26/182052 Author: Stephanie Lutz RN Service: (none) Author Type: Registered Nurse Filed: 05/26/182052 Date of Service: 05/26/182052 Status: Signed Brake Rider: Stephanie Lutz RN (Registered Nurse) Problem: Safety Goal: Patient will be injury free during hospitalization Assess and monitor vitals signs, neurological status including level of consciousness and o rientation. Assess patient's risk for falls and implement fall prevention plan of care and i nterventions per hospital policy. Ensure arm band on, uncluttered walking paths in room, adequate room lighting, call light a nd overbed table within reach, bed in low position, wheels locked, side rails up per policy, and non-skid footwear provided. Outcome: Progressing Arm bands in place, Pt up with walker and standby assist, call light by side, bed in lowest position Problem: Daily Care Goal: Daily care needs are met Assess and monitor ability to perform self care and identify potential discharge needs. Outcome: Progressing All needs met at this time lan o f Care - Conversion Transaction, Provider Unknown - 05/26/2018 10:59 AM PDTFormatting of shey s note might be different from the original. Plan of Care by Monika Wen RN at 05/26/181058 Author: Monika Wen RN Service: (none) Author Type: Registered Nurse Filed: 05/26/181058 Date of Service: 05/26/181058 Status: Signed Brake Rider: Monika Wen RN (Registered Nurse) Problem: Safety Goal: Patient will be injury free during hospitalization Assess and monitor vitals signs, neurological status including level of consciousness and o rientation. Assess patient's risk for falls and implement fall prevention plan of care and i nterventions per hospital policy. Ensure arm band on, uncluttered walking paths in room, adequate room lighting, call light a nd overbed table within reach, bed in low position, wheels locked, side rails up per policy, and non-skid footwear provided. Outcome: Progressing Call light within reach. Bed low. Wheels locked. Pathway clear and free of clutter. lan o f Care - Conversion Transaction, Provider Unknown - 05/25/2018 10:09 PM PDTFormatting of shey s note might be different from the original. Plan of Care by Stephanie Lutz RN at 05/25/182208 Author: Stephanie Lutz RN Service: (none) Author Type: Registered Nurse Filed: 05/25/182208 Date of Service: 05/25/182208 Status: Signed Brake Rider: Stephanie Lutz RN (Registered Nurse) Problem: Daily Care Goal: Daily care needs are met Assess and monitor ability to perform self care and identify potential discharge needs. Outcome: Progressing All needs met at this time lan o f Care - Conversion Transaction, Provider Unknown - 05/24/2018 9:00 PM PDTFormatting of thi s note might be different from the original. Plan of Care by Diana Martinez RN at 05/24/182099 Author: Diana Martinez RN Service: (none) Author Type: Registered Nurse Filed: 05/24/182099 Date of Service: 05/24/182099 Status: Signed Brake Rider: Diana Martinez RN (Registered Nurse) Problem: Pain Goal: Patient's pain/discomfort is manageable Outcome: Progressing PRN medication available, pt states pain is managed by medication Problem: Safety Goal: Patient will be injury free during hospitalization Outcome: Progressing Pt has remained free of injuries and falls so far this admission Problem: Daily Care Goal: Daily care needs are met Assess and monitor ability to perform self care and identify potential discharge needs. Outcome: Progressing Hourly rounding provided, assistance provided prn iscel laneous - Conversion Transaction, Provider Unknown - 05/24/2018 11:13 AM PDTFormatting of th is note might be different from the original. Treatment Plan by Bull Russell PT at 05/24/18 1113 Author: Bull Russell PT Service: (none) Author Type: Physical Therapist Filed: 05/24/18 1418 Date of Service: 05/24/181112 Status: Signed Brake Rider: Bull Russell PT (Physical Therapist) PHYSICAL THERAPY REASSESSMENT PT Received On: 05/24/18 Reason for Treatment: Cardiac Requires PT Follow Up: Yes Follow up PT Only?: No PT Eval/Reassessment Date: 05/24/18 Assistance Required: 1 person Recommendations: SNF PT Ready for Discharge: Yes Plan Treatment/Interventions: Cardiac protocol PT Frequency: 5-7x/wk, Once per day Care Duration (# of days): 7 # of days Summary Comments: Pt. is in the chair. He is AOx4. He is agreeable to PT tx. Pt. reports 5/10 pa in. He was advised in sternal precautions and requires frequent cueing to maintain. He req uires modA for transfers and Andres for ambulation assistance/safety. During gait cycle, he t ends to assume forward trunk and tendency to place excessive force through UEs (even with cu eing to minimize UE force through walker). He required 1 seated rest break after ambulating approx. 60 ft. The pt. was encouraged to attempt to increase gait distance however was rel uctant to increase distance and was only agreeable to ambulate 60 ft. back towards his room. He was assisted into the chair. Call light in reach. All VS within medical parameters. Precautions Spinal Precautions: Lumbar, TLSO on when upright Cardiac Precautions: Sternal Other Precautions: fall risk Cognition Overall Cognitive Status: Within Functional Limits Orientation Level: Oriented FUNCTIONAL MOBILITY Transfers Sit to/from Stand: Moderate assist (to arise OR lower) Ambulation Maximal Ambulation Distance (feet): 60 Total Ambulation Distance (feet): 120 Ambulation Assistance: Minimal assist Distance limited by?: Patient's ability Pattern: Step to, Decreased leighton, Right swing foot doesn't pass stance foot, Left swing foot doesn't pass stance foot, Forward flexed, Wide base Assistive Device: Walker 4 wheeled Activity Tolerance: Patient limited by fatigue Nurse Made Aware: yes The patient reported pain rated at a 5/10. Education Completed: Education Topics: [] Rationale for PT [] PT POC [] DC planning [x] Precautions [] Exercises [] Bed mobility [x] Transfer training with hand placement [x] Gait training [] Stair training [] Use of gait belt [] Other Completed with: [x] Patient [] Spouse [] Significant other [] Family [] C aregiver [] Other Completed by: [x] Verbal education [x] Demonstration [] Handout [] Other: Response to Education: [x] Stated Understanding [x] Reinforcement necessary [] Returned demonstration [x] Demonstrated understanding [] No evidence of learning [] Refused Physical Therapy Goals PT Goals Goal Formulation: With patient Pt Will Go Supine To Sit: With moderate assist, With minimal assist Pt Will Go Sit To Supine: With moderate assist, With minimal assist Pt Will Transfer Sit to Stand: With standby assist, With minimal assist Pt Will Transfer Bed/Chair: With supervision, With minimal assist Pt Will Ambulate: 150-200 feet, greater than 200 feet Ambulate Level Assist: With supervision, With standby assist Ambulate with Assistive Device: Least restricitve device lan o f Care - Conversion Transaction, Provider Unknown - 05/23/2018 8:08 PM PDTFormatting of thi s note might be different from the original. Plan of Care by Diana Martinez RN at 05/23/182007 Author: Diana Martinez RN Service: (none) Author Type: Registered Nurse Filed: 05/23/182007 Date of Service: 05/23/182007 Status: Signed Brake Rider: Diana Martinez RN (Registered Nurse) Problem: Pain Goal: Patient's pain/discomfort is manageable Outcome: Progressing PRN medication available, pt states pain is managed by medication Problem: Safety Goal: Patient will be injury free during hospitalization Outcome: Progressing Pt has remained free of injuries and falls so far this admission Problem: Daily Care Goal: Daily care needs are met Assess and monitor ability to perform self care and identify potential discharge needs. Outcome: Progressing Hourly rounding provided, assistance provided prn lan o f Care - Conversion Transaction, Provider Unknown - 05/23/2018 10:25 AM PDTFormatting of thi s note might be different from the original. Plan of Care by Soniya Duron RN at 05/23/181024 Author: Soniya Duron RN Service: (none) Author Type: Registered Nurse Filed: 05/23/181024 Date of Service: 05/23/181024 Status: Signed Brake Rider: Soniya Duron RN (Registered Nurse) Problem: Pain Goal: Patient's pain/discomfort is manageable Assess and monitor patient's pain using appropriate pain scale. Collaborate with interdisci plinary team and initiate plan and interventions as ordered. Re-assess patient's pain level approximately 1-2 hours after pain management intervention. Premedicate as needed. Outcome: Progressing Patient's pain/discomfort has remained manageable throughout this visit. lan o f Care - Conversion Transaction, Provider Unknown - 05/22/2018 9:45 PM PDTFormatting of thi s note might be different from the original. Plan of Care by Diana Martinez RN at 05/22/182144 Author: Diana Martinez RN Service: (none) Author Type: Registered Nurse Filed: 05/22/182144 Date of Service: 05/22/182144 Status: Signed Brake Rider: Diana Martinez RN (Registered Nurse) Problem: Pain Goal: Patient's pain/discomfort is manageable Outcome: Progressing PRN medication available, pt states pain is managed by medication Problem: Safety Goal: Patient will be injury free during hospitalization Outcome: Progressing Pt has remained free of injuries and falls so far this admission Problem: Daily Care Goal: Daily care needs are met Assess and monitor ability to perform self care and identify potential discharge needs. Outcome: Progressing Hourly rounding provided, assistance provided prn lan o f Care - Conversion Transaction, Provider Unknown - 05/22/2018 2:38 PM PDTFormatting of thi s note might be different from the original. Plan of Care by Blaire Benedict RN at 05/22/18 0817 Author: Blaire Benedict RN Service: (none) Author Type: Registered Nurse Filed: 05/22/181437 Date of Service: 05/22/181437 Status: Signed Brake Rider: Blaire Benedict RN (Registered Nurse) Problem: Pain Goal: Patient's pain/discomfort is manageable Assess and monitor patient's pain using appropriate pain scale. Collaborate with interdisci plinary team and initiate plan and interventions as ordered. Re-assess patient's pain level approximately 1-2 hours after pain management intervention. Premedicate as needed. Outcome: Progressing Patient pain is managed, will continue to monitor. lan o f Care - Conversion Transaction, Provider Unknown - 05/21/2018 8:37 PM PDTFormatting of thi s note might be different from the original. Plan of Care by Diana Martinez RN at 05/21/182036 Author: Diana Martinez RN Service: (none) Author Type: Registered Nurse Filed: 05/21/182036 Date of Service: 05/21/182036 Status: Signed Brake Rider: Diana Martinez RN (Registered Nurse) Problem: Pain Goal: Patient's pain/discomfort is manageable Outcome: Progressing PRN medication available, pt states pain is managed by medication Problem: Safety Goal: Patient will be injury free during hospitalization Outcome: Progressing Pt has remained free of injuries and falls so far this admission Problem: Daily Care Goal: Daily care needs are met Assess and monitor ability to perform self care and identify potential discharge needs. Outcome: Progressing Hourly rounding provided, assistance provided prn lan o f Care - Conversion Transaction, Provider Unknown - 05/21/2018 11:44 AM PDTFormatting of thi s note might be different from the original. Plan of Care by Blaire Benedict RN at 05/21/181143 Author: Blaire Benedict RN Service: (none) Author Type: Registered Nurse Filed: 05/21/18 1144 Date of Service: 05/21/181143 Status: Signed Brake Rider: Blaire Benedict RN (Registered Nurse) Problem: Pain Goal: Patient's pain/discomfort is manageable Assess and monitor patient's pain using appropriate pain scale. Collaborate with interdisci plinary team and initiate plan and interventions as ordered. Re-assess patient's pain level approximately 1-2 hours after pain management intervention. Premedicate as needed. Outcome: Progressing Patient continues to have pain, will medicate appropriately. lan o f Care - Conversion Transaction, Provider Unknown - 05/20/2018 10:51 PM PDTFormatting of shey s note might be different from the original. Plan of Care by Anmol Hbobs RN at 05/20/182250 Author: Anmol Hobbs RN Service: (none) Author Type: Registered Nurse Filed: 05/20/182250 Date of Service: 05/20/182250 Status: Signed Brake Rider: Anmol Hobbs RN (Registered Nurse) Problem: Safety Goal: Patient will be injury free during hospitalization Assess and monitor vitals signs, neurological status including level of consciousness and o rientation. Assess patient's risk for falls and implement fall prevention plan of care and i nterventions per hospital policy. Ensure arm band on, uncluttered walking paths in room, adequate room lighting, call light a nd overbed table within reach, bed in low position, wheels locked, side rails up per policy, and non-skid footwear provided. Outcome: Progressing Pt calls appropriately. Call light in reach. Room free of clutter. Continue to monitor a nd hourly round. lan o f Care - Conversion Transaction, Provider Unknown - 05/20/2018 11:14 AM PDTFormatting of shey s note might be different from the original. Plan of Care by Itzel Crawford RN at 05/20/181113 Author: Itzel Crawford RN Service: (none) Author Type: Registered Nurse Filed: 05/20/181115 Date of Service: 05/20/181113 Status: Signed Brake Rider: Itzel Crawford RN (Registered Nurse) Daily Care Daily care needs are met Progressing Discharge Barriers Patient's discharge needs are met Progressing Inadequate Coping Demonstrates ability to cope effectively Progressing Verbalizes adaptive coping mechanisms Progressing Verbalizes personal strengths Progressing Knowledge Deficit Patient/family/caregiver demonstrates understanding of disease process, treatment plan, medications, and discharge instructions Progressing Pain Patient's pain/discomfort is manageable Progressing Psychosocial Needs Demonstrates ability to cope with hospitalization/illness Progressing Collaborate with patient/family/caregiver to identify patient specific goals for this h ospitalization Progressing Safety Patient will be injury free during hospitalization Progressing Self-care/Dynamic Activity STG - Address ADL concerns as they arise Progressing CM and staff continues to work on placement for patient. OT/PT very involved today. Fabrizio santos tt started d/t increase in weight this AM and 300 cc urine out so far per urinal. Itzel crawford RN 05/20/18 @ 1115 lan o f Care - Conversion Transaction, Provider Unknown - 05/19/2018 9:55 PM PDTFormatting of thi s note might be different from the original. Plan of Care by Anmol Hobbs RN at 05/19/182154 Author: Anmol Hobbs RN Service: (none) Author Type: Registered Nurse Filed: 05/19/182154 Date of Service: 05/19/182154 Status: Signed Brake Rider: Anmol Hobbs RN (Registered Nurse) Problem: Safety Goal: Patient will be injury free during hospitalization Assess and monitor vitals signs, neurological status including level of consciousness and o rientation. Assess patient's risk for falls and implement fall prevention plan of care and i nterventions per hospital policy. Ensure arm band on, uncluttered walking paths in room, adequate room lighting, call light a nd overbed table within reach, bed in low position, wheels locked, side rails up per policy, and non-skid footwear provided. Outcome: Progressing Pt up with assist. Calls appropriately. Reinforce sternal precautions and use of LSO brac e. Call light in reach. Hourly rounding. lan o f Care - Conversion Transaction, Provider Unknown - 05/19/2018 9:38 AM PDTFormatting of thi s note might be different from the original. Plan of Care by Itzel Crawford RN at 05/19/18937 Author: Itzel Crawford RN Service: (none) Author Type: Registered Nurse Filed: 05/19/18937 Date of Service: 05/19/18937 Status: Signed Brake Rider: Itzel Crawford RN (Registered Nurse) Daily Care Daily care needs are met Progressing Discharge Barriers Patient's discharge needs are met Progressing Inadequate Coping Demonstrates ability to cope effectively Progressing Verbalizes adaptive coping mechanisms Progressing Verbalizes personal strengths Progressing Knowledge Deficit Patient/family/caregiver demonstrates understanding of disease process, treatment plan, medications, and discharge instructions Progressing Pain Patient's pain/discomfort is manageable Progressing Psychosocial Needs Demonstrates ability to cope with hospitalization/illness Progressing Collaborate with patient/family/caregiver to identify patient specific goals for this h ospitalization Progressing Safety Patient will be injury free during hospitalization Progressing Self-care/Dynamic Activity STG - Address ADL concerns as they arise Progressing Extensive education on need to get up from chair to walk to the bathroom as frequently as p ossible. Also discussed need to use Bathroom toilet for bowel movements instead of Bedpan. Itzel Crawford RN 05/19/18 @ 0938 lan o f Care - Conversion Transaction, Provider Unknown - 05/18/2018 10:50 PM PDTFormatting of thi s note might be different from the original. Plan of Care by Anmol Hobbs RN at 05/18/182249 Author: Anmol Hobbs RN Service: (none) Author Type: Registered Nurse Filed: 05/18/182250 Date of Service: 05/18/182249 Status: Signed Brake Rider: Anmol Hobbs RN (Registered Nurse) Problem: Safety Goal: Patient will be injury free during hospitalization Assess and monitor vitals signs, neurological status including level of consciousness and o rientation. Assess patient's risk for falls and implement fall prevention plan of care and i nterventions per hospital policy. Ensure arm band on, uncluttered walking paths in room, adequate room lighting, call light a nd overbed table within reach, bed in low position, wheels locked, side rails up per policy, and non-skid footwear provided. Outcome: Progressing Continue to reinforce sternal precautions. Room free of clutter. Pt calls appropriately. Nonskid footwear in place. Continue to monitor and hourly round. lan o f Care - Conversion Transaction, Provider Unknown - 05/18/2018 11:22 AM PDTFormatting of thi s note might be different from the original. Plan of Care by Tanesha Hernandez RN at 05/18/181121 Author: Tanesha Hernandez RN Service: (none) Author Type: Registered Nurse Filed: 05/18/181121 Date of Service: 05/18/181121 Status: Signed Brake Rider: Tanesha Hernandez RN (Registered Nurse) Problem: Pain Goal: Patient's pain/discomfort is manageable Assess and monitor patient's pain using appropriate pain scale. Collaborate with interdisci plinary team and initiate plan and interventions as ordered. Re-assess patient's pain level approximately 1-2 hours after pain management intervention. Premedicate as needed. Outcome: Progressing Pt call light with in reach. Pt uses appropriate. Pt medicated per MAR lan o f Care - Conversion Transaction, Provider Unknown - 05/17/2018 9:46 PM PDTFormatting of thi s note might be different from the original. Plan of Care by Domi Guillen RN at 05/17/182145 Author: Domi Guillen RN Service: Associate Director Of Sales Author Type: Registered Nurse Filed: 05/17/182145 Date of Service: 05/17/182145 Status: Signed Brake Rider: Domi Guillen RN (Registered Nurse) Daily Care Daily care needs are met Progressing Discharge Barriers Patient's discharge needs are met Progressing Inadequate Coping Demonstrates ability to cope effectively Progressing Verbalizes adaptive coping mechanisms Progressing Verbalizes personal strengths Progressing Knowledge Deficit Patient/family/caregiver demonstrates understanding of disease process, treatment plan, medications, and discharge instructions Progressing Pain Patient's pain/discomfort is manageable Progressing Psychosocial Needs Demonstrates ability to cope with hospitalization/illness Progressing Collaborate with patient/family/caregiver to identify patient specific goals for this h ospitalization Progressing Safety Patient will be injury free during hospitalization Progressing Self-care/Dynamic Activity STG - Address ADL concerns as they arise Progressing iscel laneous - Conversion Transaction, Provider Unknown - 05/17/2018 1:49 PM PDTFormatting of th is note might be different from the original. Treatment Plan by IRENE Rico at 05/17/181348 Author: IRENE Rico Service: (none) Author Type: Occupational Therapist Filed: 05/17/18 1041 Date of Service: 05/17/181348 Status: Signed Brake Rider: IRENE Rico (Occupational Therapist) OCCUPATIONAL THERAPY REASSESSMENT OT Received On: 05/17/18 Reason for Treatment: Cardiac Requires OT Follow Up: Yes OT Eval/Reassessment Date: 05/17/18 Assistance Required: 1 person, 2 person Furnace Keeper Needed: No Family/Caregiver Present: No Recommendation: SNF Equipment Recommended: Tub transfer bench, Toilet aid, Elastic shoe laces, Sock aid, Sponge long handled Requires OT Follow Up: Yes Recommendation Comments Pt may benefit from SNF for further therapies, prior to returning home. Plan Treatment Interventions: ADL retraining, IADL retraining, Functional dynamic activities, Fu nctional transfer training, AROM, Therapeutic exercises, Endurance training, Equipment eval/ education, Patient/Family training, Fine motor coordination activities, Compensatory techniq ue education OT Frequency: 3-5 x/wk Care Duration (Days): 10 Days Requires OT Follow Up: Yes Summary New OT orders received/verified. Chart reviewed-pt now s/p Aortic valve replacement. See or iginal OT evaluation for further information to hx. Pt seated in recliner with LSO on. Pt re ports 8/10 pain-RN present in room and providing medication. Pt started feeling nauseous aft er medication provided--only education provided this date. Pt continues to benefit from acut e skilled OT services to further address ADLs, AE training, home safety/fall prevention. Focus for next session: ADLs, reinforce precautions, AE training Follow up OT only? [] Yes [x] No Precautions Spinal Precautions: Lumbar (LSO OOB) Cardiac Precautions: Sternal Other Precautions: Fall precautions, monitor vitals Home Environment Type of Home: Home one story Home Exterior Layout: 1-3 steps (2 steps) Home Interior Layout: Lives on main level with bedroom/bathroom Bathroom Shower/Tub: Tub/shower unit Bathroom Toilet: Standard Bathroom Equipment: Shower chair, Hand-held shower head, Grab bars in shower/bath Bathroom Accessibility: Accessible to equipment needs Home Equipment: Walker front wheeled, Dairy Farm Worker, Shoehorn long handled, Shower head hand hel d Prior Function Level of [place]: Modified independent with functional mobility, Modified independent with ADLs, Modified independent with IADLs Falls in Past Year: Yes Lives With: Roommate ADL Assistance: Independent Home ADL's: Independent ADL Grooming Assistance: Supervision (seated, after s/u) Grooming impacted by: Endurance, Safety concerns, Precautions Toileting Assistance with Device: Dependent (catheter in place) Toileting impacted by: Pain, Endurance, Precautions, Safety concerns Functional Assistance: Moderate assist (adjusting in recliner; VCs to reinforce precautions ) Toileting transfer impacted by: Pain, Endurance, Precautions, Safety concerns Additional Comments: Pt seated in recliner, upon OT arrival. Primary focus on education of sternal precautions with ADLs. Educ pt on AE recommendations and locations to purchase. Pt m ay benefit from further education/training with ADLs. Pt started feeling nauseous after medi cation provided. RN present in room/aware. Vision-Basic Assessment Current Vision: Wears glasses Cognition Overall Cognitive Status: Within Functional Limits Orientation Level: Oriented Oriented: x 4 Comments: Tangential conversation, easily redirected Sensation Additional Comments: Reports neuropathy in bilat feet. Pt reports 04/29-RN already aware, pe r pt report. RUE Assessment: (sternal precautions) LUE Assessment: (sternal precautions) Hand Function Gross Grasp: Functional Functional Gross Grasp: Able to grasp objects without difficulty Coordination: Functional Assessment Assessment: Decreased ADL status, Decreased endurance, Decreased self-care trans, Decreased high-level ADLs Prognosis: Good Goal Formulation: Patient Activity Tolerance: Patient limited by pain, Patient tolerated treatment well (nauseous) Safety Devices in Place: Yes Type of Devices: Call lite in place, RN notified (seated in recliner) Occupational Therapy Goals ADL Goals Pt Will Perform UE Dressing: At edge of bed, In chair, With min assist, Maintaining sternal precautions (new goal) Pt Will Perform LE Dressing: At edge of bed, In chair, With mod assist, With adaptive equip ment, Maintaining sternal precautions LE Dressing Adaptive Equipment: Dairy Farm Worker, Shoehorn long-handled, Sock aid Functional Transfer Goals Pt Will Perform All Functional Transfers: With min assist, With mod assist, With assistive device, Maintaining sternal precautions, Revised (comment) Arm Goals Pt Will Complete Theraband Exer: Goal not met, Not addressed, Discontinued (DISCONTINUE GOA L) Barriers to d/c at this time include: [] Home environment [x] Family support [x] Equipment needs [] Cognitive deficits impacting functional independence [x] Physical deficits impacting functional independence [x] Self-care deficits impacting functional independence [] Other Pain The patient reported pain rated at a 8/10. RN provided medication. Education Completed: Education Topics: Reinforce precautions, AE recommendations/ADLs educ Completed with: [x] Patient [] Spouse [] Significant other [] Family [] C aregiver [] Other Completed by :[x] Verbal education [x] Demonstration [x] Handout [] Other: Response to Education: [x] Stated Understanding [x] Reinforcement necessary [x] Returned demonstration [x] Demonstrated understanding [] No evidence of learning [] Refused lan o f Care - Conversion Transaction, Provider Unknown - 05/17/2018 10:58 AM PDTFormatting of thi s note might be different from the original. Plan of Care by Wen Hernandez RN at 05/17/181057 Author: Wen Hernandez RN Service: (none) Author Type: Registered Nurse Filed: 05/17/181057 Date of Service: 05/17/181057 Status: Signed Brake Rider: Wen Hernandez RN (Registered Nurse) Daily Care Daily care needs are met Progressing Discharge Barriers Patient's discharge needs are met Progressing Inadequate Coping Demonstrates ability to cope effectively Progressing Verbalizes adaptive coping mechanisms Progressing Verbalizes personal strengths Progressing Knowledge Deficit Patient/family/caregiver demonstrates understanding of disease process, treatment plan, medications, and discharge instructions Progressing Pain Patient's pain/discomfort is manageable Progressing Psychosocial Needs Demonstrates ability to cope with hospitalization/illness Progressing Collaborate with patient/family/caregiver to identify patient specific goals for this h ospitalization Progressing Safety Patient will be injury free during hospitalization Progressing Self-care/Dynamic Activity STG - Address ADL concerns as they arise Progressing iscdolores esthi - Conversion Transaction, Provider Unknown - 05/17/2018 9:55 AM PDTFormatting of th is note might be different from the original. Treatment Plan by Bull Russell PT at 05/17/18954 Author: Bull Russell PT Service: (none) Author Type: Physical Therapist Filed: 05/17/18 5231 Date of Service: 05/17/18954 Status: Signed Brake Rider: Bull Russell PT (Physical Therapist) PHYSICAL THERAPY RE-EVALUATION PT Received On: 05/17/18 Reason for Treatment: Cardiac Requires PT Follow Up: Yes Follow up PT Only?: No Assistance Required: 1 person, 2 person (2nd person for lines) Recommendations: SNF Equipment Recommended: (TBD) Barriers to Discharge: Physical Deficits Impacting Functional [place], Self-care Defic its Impacting Functional [place] Recommendation Comments: Pt. lives with roomates however they will not be able to provide a dequate support/assistance if needed. Will likely need SNF consideration Plan Treatment/Interventions: Cardiac protocol PT Frequency: Twice a day Care Duration (# of days): 7 # of days Summary Comments: Pt. is now s/p AVR. Pt. is reporting 8/10 pain initially however was pre-medicat ed for pain by RN prior to PT assessment. He reported 5/10 after pain medication was taken. He exhibits good strength and denies sensory changes. He was educated in PT POC, sternal precautions, and mobility considerations s/p sternotomy. LS brace was donned. Pt. was slow ly brought into upright sitting position in the chair (he was lifted OOB earlier this a.m. w ith help from LF). Using momentum technique, he was able to arise from the chair w/ modAx1- 2 for lines. Upon standing, he demonstrated safe static balance with light UE support on HP W. Pt. was able to ambulate approx. 280 ft. requiring 2 brief standing rest breaks for coug natali using sternal bracing technique. He demonstrates adequate foot clearance during gait cycle with wide RADHA and slight trunk flexion. He reported slight increase in LBP however th is is chronic for him during WBing activity. After mobility assessment, he was left up in t he chair. Call light in reach. Precautions Spinal Precautions: Lumbar Cardiac Precautions: Sternal Other Precautions: fall precautions, LSO OOB, monitor bp, painful LLE w/ amb Cognition Overall Cognitive Status: Within Functional Limits Orientation Level: Oriented FUNCTIONAL MOBILITY Bed Mobility Supine to Sit: (lift OOB to chair) Transfers Sit to/from Stand: Moderate assist (to arise OR lower), x 1 person, x 2 person Bed to/from Chair: Minimal assist (steadying/contact guard), Moderate assist (to arise OR l ower), x 1 person, x 2 person Ambulation Total Ambulation Distance (feet): 280 Ambulation Assistance: Minimal assist, X1, X2 Distance limited by?: Patient's ability Pattern: Wide base, Right step height adequate, Left step height adequate, Right swing foot doesn't pass stance foot, Left swing foot doesn't pass stance foot, Alternating, Decreased leighton Assistive Device: Walker high platform BALANCE Static Sitting Balance Static Sitting-Balance Support: Feet supported Static Sitting-Level of Assistance: Verbal instruction, Attains midline, Maintains midline Static Standing Balance Static Standing-Balance Support: Trunk support Static Standing-Level of Assistance: Minimal assist, Attains midline, Maintains midline, Do esn't attain midline, Verbal instruction Activity Tolerance: Patient limited by pain Nurse Made Aware: yes The patient reported pain rated at a 8/10. RN was notified Education Completed: Education Topics: [x] Rationale for PT [x] PT POC [x] DC planning [x] Precautions [] Exercises [] Bed mobility [x] Transfer training with hand placement [x] Gait training [] Stair training [x] Use of gait belt [] Other Completed with: [x] Patient [] Spouse [] Significant other [] Family [] C aregiver [] Other Completed by: [x] Verbal education [x] Demonstration [] Handout [] Other: Response to Education: [x] Stated Understanding [x] Reinforcement necessary [] Returned demonstration [x] Demonstrated understanding [] No evidence of learning [] Refused Physical Therapy Goals PT Goals Goal Formulation: With patient Pt Will Go Supine To Sit: With moderate assist Pt Will Go Sit To Supine: With moderate assist Pt Will Transfer Sit to Stand: With supervision, With standby assist Pt Will Transfer Bed/Chair: With supervision, With standby assist Pt Will Ambulate: greater than 200 feet, greater than 500 feet Ambulate Level Assist: With modified independence, With supervision Ambulate with Assistive Device: Least restricitve device Patient Education: Patient will demonstrate adherence to precautions without verbal instruc tion lan o f Care - Conversion Transaction, Provider Unknown - 05/17/2018 2:21 AM PDTFormatting of thi s note might be different from the original. Plan of Care by Domi Guillen RN at 05/17/18220 Author: Domi Guillen RN Service: Associate Director Of Sales Author Type: Registered Nurse Filed: 05/17/18220 Date of Service: 05/17/18220 Status: Signed Brake Rider: Domi Guillen RN (Registered Nurse) Potential for Suicide Remain free from self harm Completed Daily Care Daily care needs are met Progressing Discharge Barriers Patient's discharge needs are met Progressing Inadequate Coping Demonstrates ability to cope effectively Progressing Verbalizes adaptive coping mechanisms Progressing Verbalizes personal strengths Progressing Knowledge Deficit Patient/family/caregiver demonstrates understanding of disease process, treatment plan, medications, and discharge instructions Progressing Pain Patient's pain/discomfort is manageable Progressing Psychosocial Needs Demonstrates ability to cope with hospitalization/illness Progressing Collaborate with patient/family/caregiver to identify patient specific goals for this h ospitalization Progressing Safety Patient will be injury free during hospitalization Progressing Self-care/Dynamic Activity STG - Address ADL concerns as they arise Progressing p Not e - Kin Vergara Jr., MD - 05/16/2018 11:44 AM PDTFormatting of this note might be differ ent from the original. Op Note signed by Kin Vergara MD at 05/16/181734 Author: Kin Vergara MD Service: Cardiac, Thoracic, and Vascular Surgery Author Type: Physician Filed: 05/16/18 1735 Date of Service: 05/16/18 1144 Status: Signed Brake Rider: Kin Vergara MD (Physician) JOSÉ MIGUEL FLOYD Date of : 1960 DATE OF PROCEDURE: 05/16/2018 PREOPERATIVE DIAGNOSIS: 1. Aortic valve endocarditis with large vegetations, greater than 1 cm. 2. Mild aortic insufficiency. 3. Tobacco abuse. 4. Chronic obstructive pulmonary disease. 5. Hypertension. 6. Diabetes mellitus. POSTOPERATIVE DIAGNOSIS: 1. Aortic valve endocarditis with large vegetations, greater than 1 cm. 2. Mild aortic insufficiency. 3. Tobacco abuse. 4. Chronic obstructive pulmonary disease. 5. Hypertension. 6. Diabetes mellitus. PROCEDURE: Aortic valve replacement with a #23 Magna valve. SURGEON: Kin Vergara MD PAINTER AND GRADER CORK: Sima Moran PA-C ANESTHESIOLOGIST: Dr. Saravia. ANESTHESIA: General endotracheal. IV FLUIDS: 2000 mL. EBL: Recycled. DRAINS: #28 chest tube times 1. INTRAOPERATIVE COMPLICATIONS: None. INDICATIONS: The patient is a 58-year-old white male with significant past medical history of tobacco abuse and hypertension who was admitted after an insulin overdose. After admiss ion, the patient was diagnosed with Enterococcus faecalis bacteremia. A transesophageal ech o on 05/12/2018 showed 2 large vegetations, greater than a centimeter, on the aortic valve. There was mild aortic regurgitation. The patient was treated with IV antibiotics and his b lood cultures have cleared. I saw the patient in consultation and I recommended early aorti c valve replacement secondary to the concern for embolization of the large vegetations. Ris ks and benefits of the procedure, including but not limited to bleeding, infection, damage t o heart, lungs, or kidneys, stroke, . Risks and benefits of bioprosthetic versus mecha nical valves were also discussed at length. The patient now presents for surgery. FINDINGS: 1. There were 2 large vegetations found, one on the noncoronary cusp and one on the right coronary cusp. 2. Transesophageal echocardiography after the procedure showed the valve to be functioning well. PROCEDURE: The patient was identified and taken to the operating room, was placed supine o n the operating table. After the adequate induction of general endotracheal anesthesia, the patient's neck, chest, abdomen, and lower extremities were prepped and draped in the usual sterile fashion. Preoperative antibiotics were given. Midline incision was made over the sternum and carried down the sternal table. The sternum was divided in the midline. A sternal retractor was put into place. Pericardium was divid ed in the midline and suspended. The patient was then systemically heparinized. When the A CT had reached 400, the patient was cannulated via the distal ascending aorta and the right atrial appendage. Coronary sinus catheter was placed via the mid right atrium. A left vent ricular vent was placed via the right superior pulmonary vein. A cardioplegia needle was pl aced in the proximal ascending aorta. Cardiopulmonary bypass was then instituted without di fficulty. The heart decompressed. The patient's temperature was cooled to 33 degrees. The aorta was then crossclamped and the heart was arrested with 1 liter of cold antegrade-retro grade cardioplegia solution. Myocardial septal temperatures were measured, and kept below 1 5 degrees. Cardioplegia was given every 15 minutes during the crossclamp period. A transve rse aortotomy was made 3 cm above the base of the aortic root. It was extended toward the m idportion of the noncoronary cusp. We very carefully inspected the leaflets. The leaflets were excised without disturbing the vegetations that were on them. These were sent for cult ure. The root was then copiously irrigated with saline. We then placed dilute Betadine eagle und the annulus. We sized the valve to a #23 Magna valve. Ethibond 3-0 simple stitches wer e passed around the entire annulus. Sutures were then passed through the sewing ring of the valve and the valve was seated. After ensuring adequate seating, all of the sutures were t ied and divided. The patient was rewarmed. The aortotomy was closed in 2 layers using runn ing 4-0 Prolene. The patient was then placed in deep Trendelenburg position, and with high suction and the vent, the crossclamp was removed. The heart returned to a sinus rhythm spon taneously. The surgical sites were inspected. There was adequate hemostasis. A right vent ricular pacing wire was placed. When the patient's temperature had reached 36.5 degrees, he was weaned from cardiopulmonary bypass on no inotropic support. Transesophageal echocardio graphy showed normal ventricular function and the prosthetic valve to be functioning well. Protamine was given to reverse the heparin. The patient was then decannulated in the usual fashion. All surgical sites were inspected. There was adequate hemostasis. A small incis ion was made below the main incision. A #28 chest tube was placed anterior to the heart. S ternum was reapproximated with wires in the usual fashion. Subcutaneous tissues and skin we re closed with running Vicryl stitches. A sterile dressing was applied to the wound. The p aturiel tolerated the procedure well, was transferred to the ICU in stable condition. A/ [id number] KIN VERGARA MD p Note - Kin Davis Jr., MD - 05/16/2018 11:41 AM PDTFormatting of this note might be different from t he original. Brief Op Note by Kin Vergara MD at 05/16/181140 Author: Kin Vergara MD Service: Cardiac, Thoracic, and Vascular Surgery Author Type: Physician Filed: 05/16/181142 Date of Service: 05/16/181140 Status: Signed Brake Rider: Kin Vergara MD (Physician) [facility] Service: Cardiothoracic Surgery Brief Op Note Pre-operative Diagnosis: Aortic valve endocarditis Post-operative Diagnosis: Same Procedure(s): AVR #23 Magna Surgeon: KIN VERGARA MD Herbarium Curator(s): Dr. Irizarry Anesthesia: General endotrachial anesthesia Estimated Blood Loss: Recycled Other: IV Fluids: 2000 ml Indications: See pre-operative history and physical. Findings: See note Complications: none Condition: Stable See dictated operative report for full details. KIN VERGARA MD 05/16/2018 lan of Care - C onversion Transaction, Provider Unknown - 05/15/2018 9:30 PM PDTFormatting of this note josé miguel ht be different from the original. Plan of Care by Scarlet Garcia RN at 05/15/182129 Author: Scarlet Garcia RN Service: (none) Author Type: Registered Nurse Filed: 05/15/182129 Date of Service: 05/15/182129 Status: Signed Brake Rider: Scarlet Garcia RN (Registered Nurse) Problem: Safety Goal: Patient will be injury free during hospitalization Assess and monitor vitals signs, neurological status including level of consciousness and o rientation. Assess patient's risk for falls and implement fall prevention plan of care and i nterventions per hospital policy. Ensure arm band on, uncluttered walking paths in room, adequate room lighting, call light a nd overbed table within reach, bed in low position, wheels locked, side rails up per policy, and non-skid footwear provided. Outcome: Progressing Pt calls appropriately and is aware of his limitations. Pt has not had any falls or other acute injuries yet during this hospital stay. Bed locked and in lowest position, room well lit and organized. WCM. lan o f Care - Conversion Transaction, Provider Unknown - 05/15/2018 2:32 AM PDTFormatting of thi s note might be different from the original. Plan of Care by Scarlet Garcia RN at 05/15/18231 Author: Scarlet Garcia RN Service: (none) Author Type: Registered Nurse Filed: 05/15/18231 Date of Service: 05/15/18231 Status: Signed Brake Rider: Scarlet Garcia RN (Registered Nurse) Problem: Safety Goal: Patient will be injury free during hospitalization Assess and monitor vitals signs, neurological status including level of consciousness and o rientation. Assess patient's risk for falls and implement fall prevention plan of care and i nterventions per hospital policy. Ensure arm band on, uncluttered walking paths in room, adequate room lighting, call light a nd overbed table within reach, bed in low position, wheels locked, side rails up per policy, and non-skid footwear provided. Outcome: Progressing Pt calls appropriately and is aware of his limitations. No falls or other acute injuries y et during this hospital stay. Bed is locked and in lowest position, room is clutter free. WCM. lan o f Care - Conversion Transaction, Provider Unknown - 05/14/2018 12:37 PM PDTFormatting of thi s note might be different from the original. Plan of Care by Ghada Power RN at 05/14/18 6228 Author: Ghada Power RN Service: (none) Author Type: Registered Nurse Filed: 05/14/18 1237 Date of Service: 05/14/18 123 Status: Signed Brake Rider: Ghada Power RN (Registered Nurse) Daily Care Daily care needs are met Progressing Discharge Barriers Patient's discharge needs are met Progressing Inadequate Coping Demonstrates ability to cope effectively Progressing Verbalizes adaptive coping mechanisms Progressing Verbalizes personal strengths Progressing Knowledge Deficit Patient/family/caregiver demonstrates understanding of disease process, treatment plan, medications, and discharge instructions Progressing Pain Patient's pain/discomfort is manageable Progressing Potential for Suicide Remain free from self harm Progressing Psychosocial Needs Demonstrates ability to cope with hospitalization/illness Progressing Collaborate with patient/family/caregiver to identify patient specific goals for this h ospitalization Progressing Safety Patient will be injury free during hospitalization Progressing Self-care/Dynamic Activity STG - Address ADL concerns as they arise Progressing Ghada Power RN lan o f Care - Conversion Transaction, Provider Unknown - 05/13/2018 7:00 PM PDTFormatting of thi s note might be different from the original. Plan of Care by Alva Saucedo RN at 05/13/181899 Author: Alva Saucedo RN Service: (none) Author Type: Registered Nurse Filed: 05/13/181939 Date of Service: 05/13/181899 Status: Signed Brake Rider: Alva Saucedo RN (Registered Nurse) Problem: Inadequate Coping Goal: Demonstrates ability to cope effectively Patient is able to verbalize feelings related to emotional state. Outcome: Progressing Pt is demonstrating appropriate coping techniques. Very pleasant to staff. Problem: Pain Goal: Patient's pain/discomfort is manageable Assess and monitor patient's pain using appropriate pain scale. Collaborate with interdisci plinary team and initiate plan and interventions as ordered. Re-assess patient's pain level approximately 1-2 hours after pain management intervention. Premedicate as needed. Outcome: Progressing Pt's pain is well managed with current PRN pain med regimen. Will continue to reassess and medicate when appropriate. lan o f Care - Conversion Transaction, Provider Unknown - 05/13/2018 1:27 AM PDTFormatting of thi s note might be different from the original. Plan of Care by Jada Chin RN at 05/13/18126 Author: Jada Chin RN Service: (none) Author Type: Registered Nurse Filed: 05/13/18126 Date of Service: 05/13/18126 Status: Signed Brake Rider: Jada Chin RN (Registered Nurse) Problem: Daily Care Goal: Daily care needs are met Assess and monitor ability to perform self care and identify potential discharge needs. Outcome: Progressing Pt's linens and gown changed several times this shift. Pt assisting with changes as he can. lan o f Care - Conversion Transaction, Provider Unknown - 05/12/2018 6:56 PM PDTFormatting of thi s note might be different from the original. Plan of Care by Lyn Mnotana RN at 05/12/181855 Author: Lyn Montana RN Service: (none) Author Type: Registered Nurse Filed: 05/12/181855 Date of Service: 05/12/181855 Status: Signed Brake Rider: Lyn Montana RN (Registered Nurse) Problem: Pain Goal: Patient's pain/discomfort is manageable Assess and monitor patient's pain using appropriate pain scale. Collaborate with interdisci plinary team and initiate plan and interventions as ordered. Re-assess patient's pain level approximately 1-2 hours after pain management intervention. Premedicate as needed. Treated pain with PRN's as ordered. Patient states pain relief is sufficient Problem: Psychosocial Needs Goal: Demonstrates ability to cope with hospitalization/illness Assess and monitor patients ability to cope with his/her illness. Patient anxious about treatment plan. Dr. Dalton to discuss treatment plan in depth with jack graham. Dr. Cherry discussed treatment plan with patient but deferred further education to Kayla Dalton lan o f Care - Conversion Transaction, Provider Unknown - 05/11/2018 10:42 PM PDTFormatting of thi s note might be different from the original. Plan of Care by France Miller RN at 05/11/18 4453 Author: France Miller RN Service: (none) Author Type: Registered Nurse Filed: 05/11/182241 Date of Service: 05/11/182241 Status: Signed Brake Rider: France Miller RN (Registered Nurse) Problem: Pain Goal: Patient's pain/discomfort is manageable Assess and monitor patient's pain using appropriate pain scale. Collaborate with interdisci plinary team and initiate plan and interventions as ordered. Re-assess patient's pain level approximately 1-2 hours after pain management intervention. Premedicate as needed. Outcome: Progressing Pt is able and encouraged to report pain using a 0-10 pain scale. Pt has PRN pain medicati on. Problem: Safety Goal: Patient will be injury free during hospitalization Assess and monitor vitals signs, neurological status including level of consciousness and o rientation. Assess patient's risk for falls and implement fall prevention plan of care and i nterventions per hospital policy. Ensure arm band on, uncluttered walking paths in room, adequate room lighting, call light a nd overbed table within reach, bed in low position, wheels locked, side rails up per policy, and non-skid footwear provided. Outcome: Progressing Pt has arm bands on, bed is in lowest position, call light and bed side table are within re ach. iscdolores sethi - Conversion Transaction, Provider Unknown - 05/11/2018 5:32 PM PDTFormatting of th is note might be different from the original. Treatment Plan by Teri Hough PT at 05/11/181731 Author: Teri Hough PT Service: (none) Author Type: Physical Therapist Filed: 05/11/18 0127 Date of Service: 05/11/181731 Status: Signed Brake Rider: Teri Hough PT (Physical Therapist) PHYSICAL THERAPY RE- EVALUATION PT Received On: 05/11/18 Reason for Treatment: Other (comment) (intentional overdose) Requires PT Follow Up: Yes Follow up PT Only?: No Focus for Next Treatment: Formal Balance Assessment (standing HEP for BLE strengthening) PT Eval/Reassessment Date: 05/11/18 Assistance Required: 1 person Furnace Keeper Needed: No Recommendations: SNF (pt has been released by psych) Equipment Recommended: (defer to SNF) Barriers to Discharge: Cognitive Deficits Impacting Functional [facility], Physical Defic its Impacting Functional [facility], Self-care Deficits Impacting Functional [facility], Equipment Needs (see comment), Lack of Family Support/Training, Home Design (see comment), Pain PT Ready for Discharge: Yes Recommendation Comments: Pt demonstrating ongoing antalgic gait with limitations for mobili ty tolerance and generalized weakness. Pt to benefit from post acute rehabilitation at d/c t o maximize functional independence. Plan Treatment/Interventions: Amb with mobility aide, Assist d/c plannning, Balance training, Be d mobility training, Gait training, Provide HEP, Review HEP, Stair training, Review precauti ons, Therapeutic exercise, Transfer training (brace training) Progress: Progressing toward goals PT Frequency: 3-5x/wk, 5-7x/wk, Once per day Care Duration (# of days): 7 # of days Summary Comments: Pt received supine in bed and agreeable to PT session noting limited movement OOB today's date. Extensive ongoing education provided to patient for nursing staff ability to assist with ambulation and positioning into bedside chair outside of PT intervention with RN in agreement. Pt demonstrating ongoing pain report at LLE located from hip and back without tissue restriction at calf or provocation during special testing suggesting benefit from on going training in stance position with weight shifting and SLS strength tasks to increase ef ficient normalized gait mechanics. Pt requires extensive education/discussion all therapeuti c treatment tasks and to benefit from discussion of intended goals prior to all mobility tas ks. Pt returned end of session to supine in bed with call light in reach and all needs met. Precautions Spinal Precautions: Lumbar (LSO OOB) Other Precautions: fall precautions, LSO OOB, monitor bp, painful LLE w/ amb Cognition Orientation Level: Oriented Oriented: x 4 Comments: Fair ability to follow cueing to increase safety; perseveration on LLE forefoot w eight bearing FUNCTIONAL MOBILITY Bed Mobility Rolling: Supervison, Verbal instruction (cueing for logroll) Supine to Sit: Supervision, Verbal instruction (use of bedrail at flat HOB) Sit to Supine: Supervision, Verbal instruction Scooting : Standby assist Transfers Sit to/from Stand: Standby assist Ambulation Weight Bearing Status: WBAT RLE, WBAT LLE Maximal Ambulation Distance (feet): 125ft, 100ft Total Ambulation Distance (feet): 225ft Ambulation Assistance: Standby assist, Verbal instruction Distance limited by?: Patient's ability (pain LLE and lumbar spine) Pattern: Decreased leighton, Step to, Left swing foot passes stance foot, Right swing foot d oesn't pass stance foot, Right step height adequate, Left step height adequate (forefoot-mid foot weight bearing LLE 2/2 pt reported hip pain) Assistive Device: Walker front wheeled BALANCE Balance: Yes Static Sitting Balance Static Sitting-Balance Support: Feet supported, No upper extremity support Static Sitting-Level of Assistance: Supervision (cueing to avoid trunk rotation) Static Standing Balance Static Standing-Balance Support: Right upper extremity support, Left upper extremity suppor t Static Standing-Level of Assistance: Supervision (at FWW, cueing for safety insight) Static Standing-Comment/Duration: able to achieve and maintain foot flat weight bearing wit h partial R shift at FWW without physical assistance for 30 seconds, 60 seconds THERAPEUTIC EXERCISE Therapeutic Exercises: PROM Right, PROM Left PROM Right: Hip, Knee, Ankle PROM Left: Hip, Knee, Ankle PROM Comments: No tissue restriction noted throughout BLE Standing-Exercise Type: Hip flexion alternating at FWW Activity Tolerance: Patient limited by fatigue, Patient limited by pain Nurse Made Aware: BETTIE gilman Safety Devices in Place: Yes Restraints Initially in Place: No The patient reporting ongoing pain LLE rating between 3-7/10 with ambulation limiting gait distance and pt noting contributory to toe walking with RN aware. PROM stretching provided b y PT prior to mobilization in attempt to reduce pain reduction. Education Completed: Education Topics: [x] Rationale for PT [x] PT POC [x] DC planning [x] Precautions [x] Exercises [x] Bed mobility [x] Transfer training with hand placement [x] Gait training [] Stair training [x] Use of gait belt [x] Other: LSO Completed with: [] Patient [] Spouse [] Significant other [] Family [] Ca regiver [] Other Completed by: [x] Verbal education [x] Demonstration [] Handout [] Other: Response to Education: [x] Stated Understanding [x] Reinforcement necessary [] Returned demonstration [] Demonstrated understanding [] No evidence of learning [] Refused Physical Therapy Goals PT Goals Goal Formulation: With patient Pt Will Go Supine To Sit: With modified independence, Partly met Pt Will Go Sit To Supine: With modified independence, Partly met Pt Will Transfer Sit to Stand: With modified independence, Partly met Pt Will Transfer Bed/Chair: With modified independence, Not met Pt Will Ambulate: 50-100 feet, Met, greater than 200 feet, Not met Ambulate Level Assist: With modified independence, Partly met Ambulate with Assistive Device: Least restricitve device Pt Will Go Up / Down Stairs: 1-2 stairs, Not met Stairs Level of Assist: With modified independence Other Goal: Pt will score at least a 24 on Tinetti Assessment-not met lan o f Care - Conversion Transaction, Provider Unknown - 05/10/2018 6:38 PM PDTFormatting of thi s note might be different from the original. Plan of Care by Lyn Montana RN at 05/10/181837 Author: Lyn Montana RN Service: (none) Author Type: Registered Nurse Filed: 05/10/181837 Date of Service: 05/10/181837 Status: Signed Brake Rider: Lyn Montana RN (Registered Nurse) Problem: Potential for Suicide Goal: Remain free from self harm Assess suicide risk on admission and per hospital policy. Assess and monitor patient's moo d and behaviors which may signal an increase in suicidal potential, statements such as "I wi sh I were ", acting recklessly, giving away personal possessions, or suicide notes. Ass ess patient for symptoms of post-traumatic stress disorder. Implement suicide precautions p er hospital policy. Collaborate with interdisciplinary team and initiate plan and intervent ions as ordered. Outcome: Progressing Denies suicidal ideation lan o f Care - Conversion Transaction, Provider Unknown - 05/10/2018 3:34 AM PDTFormatting of thi s note might be different from the original. Plan of Care by Skylar Bernard RN at 05/10/18333 Author: Skylar Bernard RN Service: (none) Author Type: Registered Nurse Filed: 05/10/180 Date of Service: 05/10/18333 Status: Signed Brake Rider: Skylar Bernard RN (Registered Nurse) Pain Goal: Patient s pain/discomfort is manageable Assess and monitor patient s pain using appropriate pain scale. Collaborate with interdis ciplinary team and initiate plan and interventions as ordered. Re-assess patient s pain le pj approximately 1-2 hours after pain management intervention. Premedicate as needed. Outcome: Progressing Patient states pain is under control on current regimen. Will continue to monitor and provi de medication as well as comfort measures as needed. Safety Goal: Patient will be injury free during hospitalization Assess and monitor vitals signs, neurological status including level of consciousness and o rientation. Assess patient s risk for falls and implement fall prevention plan of care and interventions per hospital policy. Ensure arm band on, uncluttered walking paths in room, adequate room lighting, call light a nd overbed table within reach, bed in low position, wheels locked, side rails up per policy, and non-skid footwear provided. Outcome: Progressing Patient will remain free from falls during hospital visit. Bed in lowest position. Room lina e from clutter. Call light within reach. Fall Prevention Goal: No Falls during Hospital Stay Outcome: Progressing Maintain bed in low, locked position at all times. Lindrith patient and family to hospital surroundings. Provide non-skid slippers. Call light within reach. Hourly rounding performed per standard. Discharge Goal: Patient's discharge needs are met. Outcome: Progressing Working with ancillary staff and Transcripter to identify discharge barriers and meet patie nt's discharge needs lan o f Care - Conversion Transaction, Provider Unknown - 05/09/2018 4:30 PM PDTFormatting of thi s note might be different from the original. Plan of Care by Karen Landa RN at 05/09/18 6478 Author: Karen Landa RN Service: (none) Author Type: Registered Nurse Filed: 05/09/18 6152 Date of Service: 05/09/181629 Status: Signed Brake Rider: Karen Landa RN (Registered Nurse) Daily Care Daily care needs are met Progressing Discharge Barriers Patient's discharge needs are met Progressing Inadequate Coping Demonstrates ability to cope effectively Progressing Verbalizes adaptive coping mechanisms Progressing Verbalizes personal strengths Progressing Knowledge Deficit Patient/family/caregiver demonstrates understanding of disease process, treatment plan, medications, and discharge instructions Progressing Pain Patient's pain/discomfort is manageable Progressing Potential for Suicide Remain free from self harm Progressing Psychosocial Needs Demonstrates ability to cope with hospitalization/illness Progressing Collaborate with patient/family/caregiver to identify patient specific goals for this h ospitalization Progressing Safety Patient will be injury free during hospitalization Progressing Self-care/Dynamic Activity STG - Address ADL concerns as they arise Progressing lan o f Care - Conversion Transaction, Provider Unknown - 05/09/2018 2:25 AM PDTFormatting of shey s note might be different from the original. Plan of Care by Moon Thomas RN at 05/09/18224 Author: Moon Thomas RN Service: (none) Author Type: Registered Nurse Filed: 05/09/18224 Date of Service: 05/09/18224 Status: Signed Brake Rider: Moon Thomas RN (Registered Nurse) Problem: Safety Goal: Patient will be injury free during hospitalization Assess and monitor vitals signs, neurological status including level of consciousness and o rientation. Assess patient's risk for falls and implement fall prevention plan of care and i nterventions per hospital policy. Ensure arm band on, uncluttered walking paths in room, adequate room lighting, call light a nd overbed table within reach, bed in low position, wheels locked, side rails up per policy, and non-skid footwear provided. Outcome: Progressing Patient's arm band is on, walking path uncluttered, call light and overbed table in reach, bed in lowest position, wheels locked, side rails up per policy, and nonskid footwear in use . lan o f Care - Conversion Transaction,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 e | 5:30 AM | | procedure are in the | | | | PDT | | results section. | + +--------+ + + + | MAGNESIUM | Routin | 06/22/2018 | | Results for this | | | e | 5:30 AM | | procedure are in the | | | | PDT | | results section. | + +--------+ + + + | BASIC METABOLIC | Routin | 06/22/2018 | | Results for this | | PANEL | e | 5:30 AM | | procedure are in the | | | | PDT | | results section. | + +--------+ + + + | POC GLUCOSE | Routin | 06/21/2018 | | Results for this | | | e | 9:55 PM | | procedure are in the | | | | PDT | | results section. | + +--------+ + + + | POC GLUCOSE | Routin | 06/21/2018 | | Results for this | | | e | 4:55 PM | | procedure are in the | | | | PDT | | results section. | + +--------+ + + + | POC GLUCOSE | Routin | 06/21/2018 | | Results for this | | | e | 11:49 AM | | procedure are in the | | | | PDT | | results section. | + +--------+ + + + | POC GLUCOSE | Routin | 06/21/2018 | | Results for this | | | e | 5:47 AM | | procedure are in the | | | | PDT | | results section. | + +--------+ + + + | EXTERNAL LAB: CBC | Routin | 06/21/2018 | | Results for this | | | e | 5:15 AM | | procedure are in the | | | | PDT | | results section. | + +--------+ + + + | PROTIME INR | Routin | 06/21/2018 | | Results for this | | | e | 5:15 AM | | procedure are in the | | | | PDT | | results section. | + +--------+ + + + | POC GLUCOSE | Routin | 06/20/2018 | | Results for this | | | e | 9:21 PM | | procedure are in the | | | | PDT | | results section. | + +--------+ + + + | POC GLUCOSE | Routin | 06/20/2018 | | Results for this | | | e | 3:53 PM | | procedure are in the | | | | PDT | | results section. | + +--------+ + + + | POC GLUCOSE | Routin | 06/20/2018 | | Results for this | | | e | 11:00 AM | | procedure are in the | | | | PDT | | results section. | + +--------+ + + + | POC GLUCOSE | Routin | 06/20/2018 | | Results for this | | | e | 5:54 AM | | procedure are in the | | | | PDT | | results section. | + +--------+ + + + | PROTIME INR | Routin | 06/20/2018 | | Results for this | | | e | 4:52 AM | | procedure are in the | | | | PDT | | results section. | + +--------+ + + + | POC GLUCOSE | Routin | 06/19/2018 | | Results for this | | | e | 9:50 PM | | procedure are in the | | | | PDT | | results section. | + +--------+ + + + | POC GLUCOSE | Routin | 06/19/2018 | | Results for this | | | e | 4:09 PM | | procedure are in the | | | | PDT | | results section. | + +--------+ + + + | POC GLUCOSE | Routin | 06/19/2018 | | Results for this | | | e | 11:20 AM | | procedure are in the | | | | PDT | | results section. | + +--------+ + + + | POC GLUCOSE | Routin | 06/19/2018 | | Results for this | | | e | 5:39 AM | | procedure are in the | | | | PDT | | results section. | + +--------+ + + + | PROTIME INR | Routin | 06/19/2018 | | Results for this | | | e | 5:04 AM | | procedure are in the | | | | PDT | | results section. | + +--------+ + + + | MAGNESIUM | Routin | 06/19/2018 | | Results for this | | | e | 5:04 AM | | procedure are in the | | | | PDT | | results section. | + +--------+ + + + | BASIC METABOLIC | Routin | 06/19/2018 | | Results for this | | PANEL | e | 5:04 AM | | procedure are in the | | | | PDT | | results section. | + +--------+ + + + | POC GLUCOSE | Routin | 06/18/2018 | | Results for this | | | e | 9:21 PM | | procedure are in the | | | | PDT | | results section. | + +--------+ + + + | POC GLUCOSE | Routin | 06/18/2018 | | Results for this | | | e | 4:46 PM | | procedure are in the | | | | PDT | | results section. | + +--------+ + + + | POC GLUCOSE | Routin | 06/18/2018 | | Results for this | | | e | 11:16 AM | | procedure are in the | | | | PDT | | results section. | + +--------+ + + + | POC GLUCOSE | Routin | 06/18/2018 | | Results for this | | | e | 5:41 AM | | procedure are in the | | | | PDT | | results section. | + +--------+ + + + | EXTERNAL LAB: CBC | Routin | 06/18/2018 | | Results for this | | | e | 5:06 AM | | procedure are in the | | | | PDT | | results section. | + +--------+ + + + | PROTIME INR | Routin | 06/18/2018 | | Results for this | | | e | 5:06 AM | | procedure are in the | | | | PDT | | results section. | + +--------+ + + + | POTASSIUM | Routin | 06/18/2018 | | Results for this | | | e | 5:06 AM | | procedure are in the | | | | PDT | | results section. | + +--------+ + + + | MAGNESIUM | Routin | 06/18/2018 | | Results for this | | | e | 5:06 AM | | procedure are in the | | | | PDT | | results section. | + +--------+ + + + | POC GLUCOSE | Routin | 06/17/2018 | | Results for this | | | e | 9:19 PM | | procedure are in the | | | | PDT | | results section. | + +--------+ + + + | POC GLUCOSE | Routin | 06/17/2018 | | Results for this | | | e | 3:48 PM | | procedure are in the | | | | PDT | | results section. | + +--------+ + + + | POC GLUCOSE | Routin | 06/17/2018 | | Results for this | | | e | 11:16 AM | | procedure are in the | | | | PDT | | results section. | + +--------+ + + + | POTASSIUM | Routin | 06/17/2018 | | Results for this | | | e | 9:49 AM | | procedure are in the | | | | PDT | | results section. | + +--------+ + + + | MAGNESIUM | Routin | 06/17/2018 | | Results for this | | | e | 9:49 AM | | procedure are in the | | | | PDT | | results section. | + +--------+ + + + | POC GLUCOSE | Routin | 06/17/2018 | | Results for this | | | e | 5:37 AM | | procedure are in the | | | | PDT | | results section. | + +--------+ + + + | PROTIME INR | Routin | 06/17/2018 | | Results for this | | | e | 5:05 AM | | procedure are in the | | | | PDT | | results section. | + +--------+ + + + | POC GLUCOSE | Routin | 06/16/2018 | | Results for this | | | e | 9:13 PM | | procedure are in the | | | | PDT | | results section. | + +--------+ + + + | POC GLUCOSE | Routin | 06/16/2018 | | Results for this | | | e | 4:46 PM | | procedure are in the | | | | PDT | | results section. | + +--------+ + + + | POC GLUCOSE | Routin | 06/16/2018 | | Results for this | | | e | 11:51 AM | | procedure are in the | | | | PDT | | results section. | + +--------+ + + + | POC GLUCOSE | Routin | 06/16/2018 | | Results for this | | | e | 5:46 AM | | procedure are in the | | | | PDT | | results section. | + +--------+ + + + | SEDIMENTATION RATE, | Routin | 06/16/2018 | | Results for this | | AUTOMATED | e | 5:15 AM | | procedure are in the | | | | PDT | | results section. | + +--------+ + + + | PROTIME INR | Routin | 06/16/2018 | | Results for this | | | e | 5:15 AM | | procedure are in the | | | | PDT | | results section. | + +--------+ + + + | C-REACTIVE PROTEIN | Routin | 06/16/2018 | | Results for this | | | e | 5:15 AM | | procedure are in the | | | | PDT | | results section. | + +--------+ + + + | MAGNESIUM | Routin | 06/16/2018 | | Results for this | | | e | 5:15 AM | | procedure are in the | | | | PDT | | results section. | + +--------+ + + + | BASIC METABOLIC | Routin | 06/16/2018 | | Results for this | | PANEL | e | 5:15 AM | | procedure are in the | | | | PDT | | results section. | + +--------+ + + + | POC GLUCOSE | Routin | 06/15/2018 | | Results for this | | | e | 9:37 PM | | procedure are in the | | | | PDT | | results section. | + +--------+ + + + | POC GLUCOSE | Routin | 06/15/2018 | | Results for this | | | e | 3:59 PM | | procedure are in the | | | | PDT | | results section. | + +--------+ + + + | POC GLUCOSE | Routin | 06/15/2018 | | Results for this | | | e | 11:20 AM | | procedure are in the | | | | PDT | | results section. | + +--------+ + + + | POC GLUCOSE | Routin | 06/15/2018 | | Results for this | | | e | 5:35 AM | | procedure are in the | | | | PDT | | results section. | + +--------+ + + + | EXTERNAL LAB: CBC | Routin | 06/15/2018 | | Results for this | | | e | 5:33 AM | | procedure are in the | | | | PDT | | results section. | + +--------+ + + + | PROTIME INR | Routin | 06/15/2018 | | Results for this | | | e | 5:33 AM | | procedure are in the | | | | PDT | | results section. | + +--------+ + + + | POC GLUCOSE | Routin | 06/14/2018 | | Results for this | | | e | 9:27 PM | | procedure are in the | | | | PDT | | results section. | + +--------+ + + + | POC GLUCOSE | Routin | 06/14/2018 | | Results for this | | | e | 3:55 PM | | procedure are in the | | | | PDT | | results section. | + +--------+ + + + | POC GLUCOSE | Routin | 06/14/2018 | | Results for this | | | e | 11:18 AM | | procedure are in the | | | | PDT | | results section. | + +--------+ + + + | PROTIME INR | Routin | 06/14/2018 | | Results for this | | | e | 5:51 AM | | procedure are in the | | | | PDT | | results section. | + +--------+ + + + | POC GLUCOSE | Routin | 06/14/2018 | | Results for this | | | e | 5:20 AM | | procedure are in the | | | | PDT | | results section. | + +--------+ + + + | POC GLUCOSE | Routin | 06/13/2018 | | Results for this | | | e | 10:00 PM | | procedure are in the | | | | PDT | | results section. | + +--------+ + + + | POC GLUCOSE | Routin | 06/13/2018 | | Results for this | | | e | 3:39 PM | | procedure are in the | | | | PDT | | results section. | + +--------+ + + + | POC GLUCOSE | Routin | 06/13/2018 | | Results for this | | | e | 11:17 AM | | procedure are in the | | | | PDT | | results section. | + +--------+ + + + | POC GLUCOSE | Routin | 06/13/2018 | | Results for this | | | e | 6:04 AM | | procedure are in the | | | | PDT | | results section. | + +--------+ + + + | PROTIME INR | Routin | 06/13/2018 | | Results for this | | | e | 5:33 AM | | procedure are in the | | | | PDT | | results section. | + +--------+ + + + | MAGNESIUM | Routin | 06/13/2018 | | Results for this | | | e | 5:33 AM | | procedure are in the | | | | PDT | | results section. | + +--------+ + + + | BASIC METABOLIC | Routin | 06/13/2018 | | Results for this | | PANEL | e | 5:33 AM | | procedure are in the | | | | PDT | | results section. | + +--------+ + + + | POC GLUCOSE | Routin | 06/12/2018 | | Results for this | | | e | 9:32 PM | | procedure are in the | | | | PDT | | results section. | + +--------+ + + + | POC GLUCOSE | Routin | 06/12/2018 | | Results for this | | | e | 4:58 PM | | procedure are in the | | | | PDT | | results section. | + +--------+ + + + | POC GLUCOSE | Routin | 06/12/2018 | | Results for this | | | e | 11:25 AM | | procedure are in the | | | | PDT | | results section. | + +--------+ + + + | POC GLUCOSE | Routin | 06/12/2018 | | Results for this | | | e | 6:07 AM | | procedure are in the | | | | PDT | | results section. | + +--------+ + + + | EXTERNAL LAB: CBC | Routin | 06/12/2018 | | Results for this | | | e | 5:32 AM | | procedure are in the | | | | PDT | | results section. | + +--------+ + + + | PROTIME INR | Routin | 06/12/2018 | | Results for this | | | e | 5:32 AM | | procedure are in the | | | | PDT | | results section. | + +--------+ + + + | POC GLUCOSE | Routin | 06/11/2018 | | Results for this | | | e | 8:55 PM | | procedure are in the | | | | PDT | | results section. | + +--------+ + + + | POC GLUCOSE | Routin | 06/11/2018 | | Results for this | | | e | 4:54 PM | | procedure are in the | | | | PDT | | results section. | + +--------+ + + + | POC GLUCOSE | Routin | 06/11/2018 | | Results for this | | | e | 11:13 AM | | procedure are in the | | | | PDT | | results section. | + +--------+ + + + | POC GLUCOSE | Routin | 06/11/2018 | | Results for this | | | e | 5:15 AM | | procedure are in the | | | | PDT | | results section. | + +--------+ + + + | PROTIME INR | Routin | 06/11/2018 | | Results for this | | | e | 4:14 AM | | procedure are in the | | | | PDT | | results section. | + +--------+ + + + | POC GLUCOSE | Routin | 06/10/2018 | | Results for this | | | e | 9:05 PM | | procedure are in the | | | | PDT | | results section. | + +--------+ + + + | POC GLUCOSE | Routin | 06/10/2018 | | Results for this | | | e | 4:40 PM | | procedure are in the | | | | PDT | | results section. | + +--------+ + + + | POC GLUCOSE | Routin | 06/10/2018 | | Results for this | | | e | 11:15 AM | | procedure are in the | | | | PDT | | results section. | + +--------+ + + + | POC GLUCOSE | Routin | 06/10/2018 | | Results for this | | | e | 5:48 AM | | procedure are in the | | | | PDT | | results section. | + +--------+ + + + | PROTIME INR | Routin | 06/10/2018 | | Results for this | | | e | 5:00 AM | | procedure are in the | | | | PDT | | results section. | + +--------+ + + + | MAGNESIUM | Routin | 06/10/2018 | | Results for this | | | e | 5:00 AM | | procedure are in the | | | | PDT | | results section. | + +--------+ + + + | BASIC METABOLIC | Routin | 06/10/2018 | | Results for this | | PANEL | e | 5:00 AM | | procedure are in the | | | | PDT | | results section. | + +--------+ + + + | POC GLUCOSE | Routin | 06/09/2018 | | Results for this | | | e | 9:30 PM | | procedure are in the | | | | PDT | | results section. | + +--------+ + + + | POC GLUCOSE | Routin | 06/09/2018 | | Results for this | | | e | 4:21 PM | | procedure are in the | | | | PDT | | results section. | + +--------+ + + + | POC GLUCOSE | Routin | 06/09/2018 | | Results for this | | | e | 11:21 AM | | procedure are in the | | | | PDT | | results section. | + +--------+ + + + | SEDIMENTATION RATE, | Routin | 06/09/2018 | | Results for this | | AUTOMATED | e | 8:45 AM | | procedure are in the | | | | PDT | | results section. | + +--------+ + + + | C-REACTIVE PROTEIN | Routin | 06/09/2018 | | Results for this | | | e | 8:45 AM | | procedure are in the | | | | PDT | | results section. | + +--------+ + + + | EXTERNAL LAB: CBC | Routin | 06/09/2018 | | Results for this | | | e | 5:21 AM | | procedure are in the | | | | PDT | | results section. | + +--------+ + + + | PROTIME INR | Routin | 06/09/2018 | | Results for this | | | e | 5:21 AM | | procedure are in the | | | | PDT | | results section. | + +--------+ + + + | POC GLUCOSE | Routin | 06/09/2018 | | Results for this | | | e | 5:02 AM | | procedure are in the | | | | PDT | | results section. | + +--------+ + + + | POC GLUCOSE | Routin | 06/08/2018 | | Results for this | | | e | 9:05 PM | | procedure are in the | | | | PDT | | results section. | + +--------+ + + + | POC GLUCOSE | Routin | 06/08/2018 | | Results for this | | | e | 4:06 PM | | procedure are in the | | | | PDT | | results section. | + +--------+ + + + | POC GLUCOSE | Routin | 06/08/2018 | | Results for this | | | e | 11:21 AM | | procedure are in the | | | | PDT | | results section. | + +--------+ + + + | PROTIME INR | Routin | 06/08/2018 | | Results for this | | | e | 5:18 AM | | procedure are in the | | | | PDT | | results section. | + +--------+ + + + | POC GLUCOSE | Routin | 06/08/2018 | | Results for this | | | e | 5:00 AM | | procedure are in the | | | | PDT | | results section. | + +--------+ + + + | POC GLUCOSE | Routin | 06/07/2018 | | Results for this | | | e | 9:04 PM | | procedure are in the | | | | PDT | | results section. | + +--------+ + + + | POC GLUCOSE | Routin | 06/07/2018 | | Results for this | | | e | 4:19 PM | | procedure are in the | | | | PDT | | results section. | + +--------+ + + + | POC GLUCOSE | Routin | 06/07/2018 | | Results for this | | | e | 11:27 AM | | procedure are in the | | | | PDT | | results section. | + +--------+ + + + | POC GLUCOSE | Routin | 06/07/2018 | | Results for this | | | e | 5:06 AM | | procedure are in the | | | | PDT | | results section. | + +--------+ + + + | PROTIME INR | Routin | 06/07/2018 | | Results for this | | | e | 4:20 AM | | procedure are in the | | | | PDT | | results section. | + +--------+ + + + | MAGNESIUM | Routin | 06/07/2018 | | Results for this | | | e | 4:20 AM | | procedure are in the | | | | PDT | | results section. | + +--------+ + + + | BASIC METABOLIC | Routin | 06/07/2018 | | Results for this | | PANEL | e | 4:20 AM | | procedure are in the | | | | PDT | | results section. | + +--------+ + + + | POC GLUCOSE | Routin | 06/06/2018 | | Results for this | | | e | 9:05 PM | | procedure are in the | | | | PDT | | results section. | + +--------+ + + + | POC GLUCOSE | Routin | 06/06/2018 | | Results for this | | | e | 4:07 PM | | procedure are in the | | | | PDT | | results section. | + +--------+ + + + | POC GLUCOSE | Routin | 06/06/2018 | | Results for this | | | e | 11:04 AM | | procedure are in the | | | | PDT | | results section. | + +--------+ + + + | POC GLUCOSE | Routin | 06/06/2018 | | Results for this | | | e | 5:05 AM | | procedure are in the | | | | PDT | | results section. | + +--------+ + + + | EXTERNAL LAB: CBC | Routin | 06/06/2018 | | Results for this | | | e | 4:45 AM | | procedure are in the | | | | PDT | | results section. | + +--------+ + + + | PROTIME INR | Routin | 06/06/2018 | | Results for this | | | e | 4:45 AM | | procedure are in the | | | | PDT | | results section. | + +--------+ + + + | MAGNESIUM | Routin | 06/06/2018 | | Results for this | | | e | 4:45 AM | | procedure are in the | | | | PDT | | results section. | + +--------+ + + + | BASIC METABOLIC | Routin | 06/06/2018 | | Results for this | | PANEL | e | 4:45 AM | | procedure are in the | | | | PDT | | results section. | + +--------+ + + + | POC GLUCOSE | Routin | 06/05/2018 | | Results for this | | | e | 9:08 PM | | procedure are in the | | | | PDT | | results section. | + +--------+ + + + | POC GLUCOSE | Routin | 06/05/2018 | | Results for this | | | e | 8:54 PM | | procedure are in the | | | | PDT | | results section. | + +--------+ + + + | POC GLUCOSE | Routin | 06/05/2018 | | Results for this | | | e | 4:32 PM | | procedure are in the | | | | PDT | | results section. | + +--------+ + + + | POC GLUCOSE | Routin | 06/05/2018 | | Results for this | | | e | 11:00 AM | | procedure are in the | | | | PDT | | results section. | + +--------+ + + + | POC GLUCOSE | Routin | 06/05/2018 | | Results for this | | | e | 5:10 AM | | procedure are in the | | | | PDT | | results section. | + +--------+ + + + | PROTIME INR | Routin | 06/05/2018 | | Results for this | | | e | 4:41 AM | | procedure are in the | | | | PDT | | results section. | + +--------+ + + + | MAGNESIUM | Routin | 06/05/2018 | | Results for this | | | e | 4:41 AM | | procedure are in the | | | | PDT | | results section. | + +--------+ + + + | BASIC METABOLIC | Routin | 06/05/2018 | | Results for this | | PANEL | e | 4:41 AM | | procedure are in the | | | | PDT | | results section. | + +--------+ + + + | POC GLUCOSE | Routin | 06/04/2018 | | Results for this | | | e | 9:07 PM | | procedure are in the | | | | PDT | | results section. | + +--------+ + + + | POC GLUCOSE | Routin | 06/04/2018 | | Results for this | | | e | 5:13 PM | | procedure are in the | | | | PDT | | results section. | + +--------+ + + + | POC GLUCOSE | Routin | 06/04/2018 | | Results for this | | | e | 12:12 PM | | procedure are in the | | | | PDT | | results section. | + +--------+ + + + | POC GLUCOSE | Routin | 06/04/2018 | | Results for this | | | e | 5:41 AM | | procedure are in the | | | | PDT | | results section. | + +--------+ + + + | EXTERNAL LAB: CBC | Routin | 06/04/2018 | | Results for this | | | e | 4:30 AM | | procedure are in the | | | | PDT | | results section. | + +--------+ + + + | PROTIME INR | Routin | 06/04/2018 | | Results for this | | | e | 4:30 AM | | procedure are in the | | | | PDT | | results section. | + +--------+ + + + | MAGNESIUM | Routin | 06/04/2018 | | Results for this | | | e | 4:30 AM | | procedure are in the | | | | PDT | | results section. | + +--------+ + + + | BASIC METABOLIC | Routin | 06/04/2018 | | Results for this | | PANEL | e | 4:30 AM | | procedure are in the | | | | PDT | | results section. | + +--------+ + + + | POC GLUCOSE | Routin | 06/03/2018 | | Results for this | | | e | 9:16 PM | | procedure are in the | | | | PDT | | results section. | + +--------+ + + + | POC GLUCOSE | Routin | 06/03/2018 | | Results for this | | | e | 4:15 PM | | procedure are in the | | | | PDT | | results section. | + +--------+ + + + | POC GLUCOSE | Routin | 06/03/2018 | | Results for this | | | e | 11:42 AM | | procedure are in the | | | | PDT | | results section. | + +--------+ + + + | POC GLUCOSE | Routin | 06/03/2018 | | Results for this | | | e | 5:22 AM | | procedure are in the | | | | PDT | | results section. | + +--------+ + + + | PROTIME INR | Routin | 06/03/2018 | | Results for this | | | e | 5:11 AM | | procedure are in the | | | | PDT | | results section. | + +--------+ + + + | MAGNESIUM | Routin | 06/03/2018 | | Results for this | | | e | 5:11 AM | | procedure are in the | | | | PDT | | results section. | + +--------+ + + + | BASIC METABOLIC | Routin | 06/03/2018 | | Results for this | | PANEL | e | 5:11 AM | | procedure are in the | | | | PDT | | results section. | + +--------+ + + + | POC GLUCOSE | Routin | 06/02/2018 | | Results for this | | | e | 9:26 PM | | procedure are in the | | | | PDT | | results section. | + +--------+ + + + | POC GLUCOSE | Routin | 06/02/2018 | | Results for this | | | e | 3:49 PM | | procedure are in the | | | | PDT | | results section. | + +--------+ + + + | POC GLUCOSE | Routin | 06/02/2018 | | Results for this | | | e | 11:20 AM | | procedure are in the | | | | PDT | | results section. | + +--------+ + + + | POC GLUCOSE | Routin | 06/02/2018 | | Results for this | | | e | 5:06 AM | | procedure are in the | | | | PDT | | results section. | + +--------+ + + + | EXTERNAL LAB: CBC | Routin | 06/02/2018 | | Results for this | | | e | 4:38 AM | | procedure are in the | | | | PDT | | results section. | + +--------+ + + + | SEDIMENTATION RATE, | Routin | 06/02/2018 | | Results for this | | AUTOMATED | e | 4:38 AM | | procedure are in the | | | | PDT | | results section. | + +--------+ + + + | PROTIME INR | Routin | 06/02/2018 | | Results for this | | | e | 4:38 AM | | procedure are in the | | | | PDT | | results section. | + +--------+ + + + | C-REACTIVE PROTEIN | Routin | 06/02/2018 | | Results for this | | | e | 4:38 AM | | procedure are in the | | | | PDT | | results section. | + +--------+ + + + | MAGNESIUM | Routin | 06/02/2018 | | Results for this | | | e | 4:38 AM | | procedure are in the | | | | PDT | | results section. | + +--------+ + + + | COMPREHENSIVE | Routin | 06/02/2018 | | Results for this | | METABOLIC PANEL | e | 4:38 AM | | procedure are in the | | | | PDT | | results section. | + +--------+ + + + | POC GLUCOSE | Routin | 06/01/2018 | | Results for this | | | e | 9:07 PM | | procedure are in the | | | | PDT | | results section. | + +--------+ + + + | POC GLUCOSE | Routin | 06/01/2018 | | Results for this | | | e | 4:15 PM | | procedure are in the | | | | PDT | | results section. | + +--------+ + + + | POC GLUCOSE | Routin | 06/01/2018 | | Results for this | | | e | 11:07 AM | | procedure are in the | | | | PDT | | results section. | + +--------+ + + + | PROTIME INR | Routin | 06/01/2018 | | Results for this | | | e | 4:45 AM | | procedure are in the | | | | PDT | | results section. | + +--------+ + + + | MAGNESIUM | Routin | 06/01/2018 | | Results for this | | | e | 4:45 AM | | procedure are in the | | | | PDT | | results section. | + +--------+ + + + | BASIC METABOLIC | Routin | 06/01/2018 | | Results for this | | PANEL | e | 4:45 AM | | procedure are in the | | | | PDT | | results section. | + +--------+ + + + | POC GLUCOSE | Routin | 06/01/2018 | | Results for this | | | e | 4:34 AM | | procedure are in the | | | | PDT | | results section. | + +--------+ + + + | POC GLUCOSE | Routin | 05/31/2018 | | Results for this | | | e | 9:10 PM | | procedure are in the | | | | PDT | | results section. | + +--------+ + + + | POC GLUCOSE | Routin | 05/31/2018 | | Results for this | | | e | 3:52 PM | | procedure are in the | | | | PDT | | results section. | + +--------+ + + + | POC GLUCOSE | Routin | 05/31/2018 | | Results for this | | | e | 11:20 AM | | procedure are in the | | | | PDT | | results section. | + +--------+ + + + | POC GLUCOSE | Routin | 05/31/2018 | | Results for this | | | e | 5:18 AM | | procedure are in the | | | | PDT | | results section. | + +--------+ + + + | PROTIME INR | Routin | 05/31/2018 | | Results for this | | | e | 4:19 AM | | procedure are in the | | | | PDT | | results section. | + +--------+ + + + | CBC NO DIFFERENTIAL | Routin | 05/31/2018 | | Results for this | | | e | 4:19 AM | | procedure are in the | | | | PDT | | results section. | + +--------+ + + + | MAGNESIUM | Routin | 05/31/2018 | | Results for this | | | e | 4:19 AM | | procedure are in the | | | | PDT | | results section. | + +--------+ + + + | BASIC METABOLIC | Routin | 05/31/2018 | | Results for this | | PANEL | e | 4:19 AM | | procedure are in the | | | | PDT | | results section. | + +--------+ + + + | POC GLUCOSE | Routin | 05/30/2018 | | Results for this | | | e | 8:58 PM | | procedure are in the | | | | PDT | | results section. | + +--------+ + + + | POC GLUCOSE | Routin | 05/30/2018 | | Results for this | | | e | 4:44 PM | | procedure are in the | | | | PDT | | results section. | + +--------+ + + + | POC GLUCOSE | Routin | 05/30/2018 | | Results for this | | | e | 11:02 AM | | procedure are in the | | | | PDT | | results section. | + +--------+ + + + | PROTIME INR | Routin | 05/30/2018 | | Results for this | | | e | 5:45 AM | | procedure are in the | | | | PDT | | results section. | + +--------+ + + + | CBC NO DIFFERENTIAL | Routin | 05/30/2018 | | Results for this | | | e | 5:45 AM | | procedure are in the | | | | PDT | | results section. | + +--------+ + + + | MAGNESIUM | Routin | 05/30/2018 | | Results for this | | | e | 5:45 AM | | procedure are in the | | | | PDT | | results section. | + +--------+ + + + | BASIC METABOLIC | Routin | 05/30/2018 | | Results for this | | PANEL | e | 5:45 AM | | procedure are in the | | | | PDT | | results section. | + +--------+ + + + | POC GLUCOSE | Routin | 05/30/2018 | | Results for this | | | e | 5:43 AM | | procedure are in the | | | | PDT | | results section. | + +--------+ + + + | POC GLUCOSE | Routin | 05/29/2018 | | Results for this | | | e | 9:15 PM | | procedure are in the | | | | PDT | | results section. | + +--------+ + + + | POC GLUCOSE | Routin | 05/29/2018 | | Results for this | | | e | 4:40 PM | | procedure are in the | | | | PDT | | results section. | + +--------+ + + + | POC GLUCOSE | Routin | 05/29/2018 | | Results for this | | | e | 3:17 PM | | procedure are in the | | | | PDT | | results section. | + +--------+ + + + | POC GLUCOSE | Routin | 05/29/2018 | | Results for this | | | e | 11:15 AM | | procedure are in the | | | | PDT | | results section. | + +--------+ + + + | PROTIME INR | Routin | 05/29/2018 | | Results for this | | | e | 5:33 AM | | procedure are in the | | | | PDT | | results section. | + +--------+ + + + | CBC NO DIFFERENTIAL | Routin | 05/29/2018 | | Results for this | | | e | 5:33 AM | | procedure are in the | | | | PDT | | results section. | + +--------+ + + + | MAGNESIUM | Routin | 05/29/2018 | | Results for this | | | e | 5:33 AM | | procedure are in the | | | | PDT | | results section. | + +--------+ + + + | BASIC METABOLIC | Routin | 05/29/2018 | | Results for this | | PANEL | e | 5:33 AM | | procedure are in the | | | | PDT | | results section. | + +--------+ + + + | POC GLUCOSE | Routin | 05/29/2018 | | Results for this | | | e | 5:22 AM | | procedure are in the | | | | PDT | | results section. | + +--------+ + + + | POC GLUCOSE | Routin | 05/28/2018 | | Results for this | | | e | 9:01 PM | | procedure are in the | | | | PDT | | results section. | + +--------+ + + + | POC GLUCOSE | Routin | 05/28/2018 | | Results for this | | | e | 5:04 PM | | procedure are in the | | | | PDT | | results section. | + +--------+ + + + | POC GLUCOSE | Routin | 05/28/2018 | | Results for this | | | e | 11:13 AM | | procedure are in the | | | | PDT | | results section. | + +--------+ + + + | POC GLUCOSE | Routin | 05/28/2018 | | Results for this | | | e | 5:51 AM | | procedure are in the | | | | PDT | | results section. | + +--------+ + + + | PROTIME INR | Routin | 05/28/2018 | | Results for this | | | e | 4:16 AM | | procedure are in the | | | | PDT | | results section. | + +--------+ + + + | CBC NO DIFFERENTIAL | Routin | 05/28/2018 | | Results for this | | | e | 4:16 AM | | procedure are in the | | | | PDT | | results section. | + +--------+ + + + | MAGNESIUM | Routin | 05/28/2018 | | Results for this | | | e | 4:16 AM | | procedure are in the | | | | PDT | | results section. | + +--------+ + + + | BASIC METABOLIC | Routin | 05/28/2018 | | Results for this | | PANEL | e | 4:16 AM | | procedure are in the | | | | PDT | | results section. | + +--------+ + + + | POTASSIUM | Routin | 05/27/2018 | | Results for this | | | e | 11:53 PM | | procedure are in the | | | | PDT | | results section. | + +--------+ + + + | POC GLUCOSE | Routin | 05/27/2018 | | Results for this | | | e | 8:56 PM | | procedure are in the | | | | PDT | | results section. | + +--------+ + + + | POTASSIUM | Routin | 05/27/2018 | | Results for this | | | e | 5:49 PM | | procedure are in the | | | | PDT | | results section. | + +--------+ + + + | POC GLUCOSE | Routin | 05/27/2018 | | Results for this | | | e | 3:44 PM | | procedure are in the | | | | PDT | | results section. | + +--------+ + + + | POTASSIUM | Routin | 05/27/2018 | | Results for this | | | e | 12:10 PM | | procedure are in the | | | | PDT | | results section. | + +--------+ + + + | POC GLUCOSE | Routin | 05/27/2018 | | Results for this | | | e | 11:48 AM | | procedure are in the | | | | PDT | | results section. | + +--------+ + + + | POC GLUCOSE | Routin | 05/27/2018 | | Results for this | | | e | 10:36 AM | | procedure are in the | | | | PDT | | results section. | + +--------+ + + + | POC GLUCOSE | Routin | 05/27/2018 | | Results for this | | | e | 5:25 AM | | procedure are in the | | | | PDT | | results section. | + +--------+ + + + | PROTIME INR | Routin | 05/27/2018 | | Results for this | | | e | 5:05 AM | | procedure are in the | | | | PDT | | results section. | + +--------+ + + + | CBC NO DIFFERENTIAL | Routin | 05/27/2018 | | Results for this | | | e | 5:05 AM | | procedure are in the | | | | PDT | | results section. | + +--------+ + + + | MAGNESIUM | Routin | 05/27/2018 | | Results for this | | | e | 5:05 AM | | procedure are in the | | | | PDT | | results section. | + +--------+ + + + | BASIC METABOLIC | Routin | 05/27/2018 | | Results for this | | PANEL | e | 5:05 AM | | procedure are in the | | | | PDT | | results section. | + +--------+ + + + | POTASSIUM | Routin | 05/26/2018 | | Results for this | | | e | 11:54 PM | | procedure are in the | | | | PDT | | results section. | + +--------+ + + + | POC GLUCOSE | Routin | 05/26/2018 | | Results for this | | | e | 9:19 PM | | procedure are in the | | | | PDT | | results section. | + +--------+ + + + | POC GLUCOSE | Routin | 05/26/2018 | | Results for this | | | e | 4:40 PM | | procedure are in the | | | | PDT | | results section. | + +--------+ + + + | POC GLUCOSE | Routin | 05/26/2018 | | Results for this | | | e | 11:51 AM | | procedure are in the | | | | PDT | | results section. | + +--------+ + + + | SEDIMENTATION RATE, | Routin | 05/26/2018 | | Results for this | | AUTOMATED | e | 5:31 AM | | procedure are in the | | | | PDT | | results section. | + +--------+ + + + | PROTIME INR | Routin | 05/26/2018 | | Results for this | | | e | 5:31 AM | | procedure are in the | | | | PDT | | results section. | + +--------+ + + + | CBC NO DIFFERENTIAL | Routin | 05/26/2018 | | Results for this | | | e | 5:31 AM | | procedure are in the | | | | PDT | | results section. | + +--------+ + + + | C-REACTIVE PROTEIN | Routin | 05/26/2018 | | Results for this | | | e | 5:31 AM | | procedure are in the | | | | PDT | | results section. | + +--------+ + + + | MAGNESIUM | Routin | 05/26/2018 | | Results for this | | | e | 5:31 AM | | procedure are in the | | | | PDT | | results section. | + +--------+ + + + | BASIC METABOLIC | Routin | 05/26/2018 | | Results for this | | PANEL | e | 5:31 AM | | procedure are in the | | | | PDT | | results section. | + +--------+ + + + | POC GLUCOSE | Routin | 05/26/2018 | | Results for this | | | e | 5:28 AM | | procedure are in the | | | | PDT | | results section. | + +--------+ + + + | POTASSIUM | Routin | 05/26/2018 | | Results for this | | | e | 12:26 AM | | procedure are in the | | | | PDT | | results section. | + +--------+ + + + | POC GLUCOSE | Routin | 05/25/2018 | | Results for this | | | e | 9:18 PM | | procedure are in the | | | | PDT | | results section. | + +--------+ + + + | POC GLUCOSE | Routin | 05/25/2018 | | Results for this | | | e | 4:40 PM | | procedure are in the | | | | PDT | | results section. | + +--------+ + + + | POC GLUCOSE | Routin | 05/25/2018 | | Results for this | | | e | 11:21 AM | | procedure are in the | | | | PDT | | results section. | + +--------+ + + + | PROTIME INR | Routin | 05/25/2018 | | Results for this | | | e | 5:22 AM | | procedure are in the | | | | PDT | | results section. | + +--------+ + + + | CBC NO DIFFERENTIAL | Routin | 05/25/2018 | | Results for this | | | e | 5:22 AM | | procedure are in the | | | | PDT | | results section. | + +--------+ + + + | MAGNESIUM | Routin | 05/25/2018 | | Results for this | | | e | 5:22 AM | | procedure are in the | | | | PDT | | results section. | + +--------+ + + + | BASIC METABOLIC | Routin | 05/25/2018 | | Results for this | | PANEL | e | 5:22 AM | | procedure are in the | | | | PDT | | results section. | + +--------+ + + + | POC GLUCOSE | Routin | 05/25/2018 | | Results for this | | | e | 5:08 AM | | procedure are in the | | | | PDT | | results section. | + +--------+ + + + | POTASSIUM | Routin | 05/24/2018 | | Results for this | | | e | 10:08 PM | | procedure are in the | | | | PDT | | results section. | + +--------+ + + + | POC GLUCOSE | Routin | 05/24/2018 | | Results for this | | | e | 9:07 PM | | procedure are in the | | | | PDT | | results section. | + +--------+ + + + | POC GLUCOSE | Routin | 05/24/2018 | | Results for this | | | e | 4:45 PM | | procedure are in the | | | | PDT | | results section. | + +--------+ + + + | POC GLUCOSE | Routin | 05/24/2018 | | Results for this | | | e | 12:16 PM | | procedure are in the | | | | PDT | | results section. | + +--------+ + + + | PROTIME INR | Routin | 05/24/2018 | | Results for this | | | e | 5:21 AM | | procedure are in the | | | | PDT | | results section. | + +--------+ + + + | CBC NO DIFFERENTIAL | Routin | 05/24/2018 | | Results for this | | | e | 5:21 AM | | procedure are in the | | | | PDT | | results section. | + +--------+ + + + | MAGNESIUM | Routin | 05/24/2018 | | Results for this | | | e | 5:21 AM | | procedure are in the | | | | PDT | | results section. | + +--------+ + + + | BASIC METABOLIC | Routin | 05/24/2018 | | Results for this | | PANEL | e | 5:21 AM | | procedure are in the | | | | PDT | | results section. | + +--------+ + + + | POC GLUCOSE | Routin | 05/24/2018 | | Results for this | | | e | 5:09 AM | | procedure are in the | | | | PDT | | results section. | + +--------+ + + + | POTASSIUM | Routin | 05/23/2018 | | Results for this | | | e | 10:01 PM | | procedure are in the | | | | PDT | | results section. | + +--------+ + + + | POC GLUCOSE | Routin | 05/23/2018 | | Results for this | | | e | 9:04 PM | | procedure are in the | | | | PDT | | results section. | + +--------+ + + + | POC GLUCOSE | Routin | 05/23/2018 | | Results for this | | | e | 4:34 PM | | procedure are in the | | | | PDT | | results section. | + +--------+ + + + | POTASSIUM | Routin | 05/23/2018 | | Results for this | | | e | 3:45 PM | | procedure are in the | | | | PDT | | results section. | + +--------+ + + + | POC GLUCOSE | Routin | 05/23/2018 | | Results for this | | | e | 12:03 PM | | procedure are in the | | | | PDT | | results section. | + +--------+ + + + | POTASSIUM | Routin | 05/23/2018 | | Results for this | | | e | 10:02 AM | | procedure are in the | | | | PDT | | results section. | + +--------+ + + + | POC GLUCOSE | Routin | 05/23/2018 | | Results for this | | | e | 5:21 AM | | procedure are in the | | | | PDT | | results section. | + +--------+ + + + | CBC WITH MANUAL | Routin | 05/23/2018 | | Results for this | | DIFFERENTIAL | e | 4:28 AM | | procedure are in the | | | | PDT | | results section. | + +--------+ + + + | SEDIMENTATION RATE, | Routin | 05/23/2018 | | Results for this | | AUTOMATED | e | 4:28 AM | | procedure are in the | | | | PDT | | results section. | + +--------+ + + + | PROTIME INR | Routin | 05/23/2018 | | Results for this | | | e | 4:28 AM | | procedure are in the | | | | PDT | | results section. | + +--------+ + + + | C-REACTIVE PROTEIN | Routin | 05/23/2018 | | Results for this | | | e | 4:28 AM | | procedure are in the | | | | PDT | | results section. | + +--------+ + + + | MAGNESIUM | Routin | 05/23/2018 | | Results for this | | | e | 4:28 AM | | procedure are in the | | | | PDT | | results section. | + +--------+ + + + | COMPREHENSIVE | Routin | 05/23/2018 | | Results for this | | METABOLIC PANEL | e | 4:28 AM | | procedure are in the | | | | PDT | | results section. | + +--------+ + + + | POTASSIUM | Routin | 05/23/2018 | | Results for this | | | e | 2:51 AM | | procedure are in the | | | | PDT | | results section. | + +--------+ + + + | POC GLUCOSE | Routin | 05/22/2018 | | Results for this | | | e | 9:38 PM | | procedure are in the | | | | PDT | | results section. | + +--------+ + + + | POC GLUCOSE | Routin | 05/22/2018 | | Results for this | | | e | 5:21 PM | | procedure are in the | | | | PDT | | results section. | + +--------+ + + + | POC GLUCOSE | Routin | 05/22/2018 | | Results for this | | | e | 4:24 PM | | procedure are in the | | | | PDT | | results section. | + +--------+ + + + | POTASSIUM | Routin | 05/22/2018 | | Results for this | | | e | 2:12 PM | | procedure are in the | | | | PDT | | results section. | + +--------+ + + + | POTASSIUM | Routin | 05/22/2018 | | Results for this | | | e | 11:20 AM | | procedure are in the | | | | PDT | | results section. | + +--------+ + + + | POC GLUCOSE | Routin | 05/22/2018 | | Results for this | | | e | 11:08 AM | | procedure are in the | | | | PDT | | results section. | + +--------+ + + + | POC GLUCOSE | Routin | 05/22/2018 | | Results for this | | | e | 4:59 AM | | procedure are in the | | | | PDT | | results section. | + +--------+ + + + | CBC NO DIFFERENTIAL | Routin | 05/22/2018 | | Results for this | | | e | 3:14 AM | | procedure are in the | | | | PDT | | results section. | + +--------+ + + + | MAGNESIUM | Routin | 05/22/2018 | | Results for this | | | e | 3:14 AM | | procedure are in the | | | | PDT | | results section. | + +--------+ + + + | BASIC METABOLIC | Routin | 05/22/2018 | | Results for this | | PANEL | e | 3:14 AM | | procedure are in the | | | | PDT | | results section. | + +--------+ + + + | POTASSIUM | Routin | 05/21/2018 | | Results for this | | | e | 10:44 PM | | procedure are in the | | | | PDT | | results section. | + +--------+ + + + | POC GLUCOSE | Routin | 05/21/2018 | | Results for this | | | e | 9:46 PM | | procedure are in the | | | | PDT | | results section. | + +--------+ + + + | POC GLUCOSE | Routin | 05/21/2018 | | Results for this | | | e | 4:25 PM | | procedure are in the | | | | PDT | | results section. | + +--------+ + + + | POTASSIUM | Routin | 05/21/2018 | | Results for this | | | e | 1:49 PM | | procedure are in the | | | | PDT | | results section. | + +--------+ + + + | POC GLUCOSE | Routin | 05/21/2018 | | Results for this | | | e | 12:51 PM | | procedure are in the | | | | PDT | | results section. | + +--------+ + + + | CBC NO DIFFERENTIAL | Routin | 05/21/2018 | | Results for this | | | e | 5:09 AM | | procedure are in the | | | | PDT | | results section. | + +--------+ + + + | MAGNESIUM | Routin | 05/21/2018 | | Results for this | | | e | 5:09 AM | | procedure are in the | | | | PDT | | results section. | + +--------+ + + + | BASIC METABOLIC | Routin | 05/21/2018 | | Results for this | | PANEL | e | 5:09 AM | | procedure are in the | | | | PDT | | results section. | + +--------+ + + + | POC GLUCOSE | Routin | 05/21/2018 | | Results for this | | | e | 5:04 AM | | procedure are in the | | | | PDT | | results section. | + +--------+ + + + | POC GLUCOSE | Routin | 05/20/2018 | | Results for this | | | e | 9:19 PM | | procedure are in the | | | | PDT | | results section. | + +--------+ + + + | POTASSIUM | Routin | 05/20/2018 | | Results for this | | | e | 6:22 PM | | procedure are in the | | | | PDT | | results section. | + +--------+ + + + | POC GLUCOSE | Routin | 05/20/2018 | | Results for this | | | e | 4:22 PM | | procedure are in the | | | | PDT | | results section. | + +--------+ + + + | POC GLUCOSE | Routin | 05/20/2018 | | Results for this | | | e | 12:44 PM | | procedure are in the | | | | PDT | | results section. | + +--------+ + + + | POTASSIUM | Routin | 05/20/2018 | | Results for this | | | e | 12:07 PM | | procedure are in the | | | | PDT | | results section. | + +--------+ + + + | POC GLUCOSE | Routin | 05/20/2018 | | Results for this | | | e | 5:50 AM | | procedure are in the | | | | PDT | | results section. | + +--------+ + + + | CBC NO DIFFERENTIAL | Routin | 05/20/2018 | | Results for this | | | e | 4:36 AM | | procedure are in the | | | | PDT | | results section. | + +--------+ + + + | MAGNESIUM | Routin | 05/20/2018 | | Results for this | | | e | 4:36 AM | | procedure are in the | | | | PDT | | results section. | + +--------+ + + + | BASIC METABOLIC | Routin | 05/20/2018 | | Results for this | | PANEL | e | 4:36 AM | | procedure are in the | | | | PDT | | results section. | + +--------+ + + + | POC GLUCOSE | Routin | 05/19/2018 | | Results for this | | | e | 9:15 PM | | procedure are in the | | | | PDT | | results section. | + +--------+ + + + | POC GLUCOSE | Routin | 05/19/2018 | | Results for this | | | e | 4:18 PM | | procedure are in the | | | | PDT | | results section. | + +--------+ + + + | POTASSIUM | Routin | 05/19/2018 | | Results for this | | | e | 1:52 PM | | procedure are in the | | | | PDT | | results section. | + +--------+ + + + | POC GLUCOSE | Routin | 05/19/2018 | | Results for this | | | e | 11:33 AM | | procedure are in the | | | | PDT | | results section. | + +--------+ + + + | EOSINOPHIL SMEAR, | Routin | 05/19/2018 | | Results for this | | URINE | e | 11:25 AM | | procedure are in the | | | | PDT | | results section. | + +--------+ + + + | ECHO COMPLETE | Routin | 05/19/2018 | | Results for this | | | e | 8:18 AM | | procedure are in the | | | | PDT | | results section. | + +--------+ + + + | XR CHEST 2 VIEWS | Routin | 05/19/2018 | | Results for this | | | e | 7:42 AM | | procedure are in the | | | | PDT | | results section. | + +--------+ + + + | POC GLUCOSE | Routin | 05/19/2018 | | Results for this | | | e | 5:47 AM | | procedure are in the | | | | PDT | | results section. | + +--------+ + + + | CBC NO DIFFERENTIAL | Routin | 05/19/2018 | | Results for this | | | e | 5:05 AM | | procedure are in the | | | | PDT | | results section. | + +--------+ + + + | MAGNESIUM | Routin | 05/19/2018 | | Results for this | | | e | 5:05 AM | | procedure are in the | | | | PDT | | results section. | + +--------+ + + + | BASIC METABOLIC | Routin | 05/19/2018 | | Results for this | | PANEL | e | 5:05 AM | | procedure are in the | | | | PDT | | results section. | + +--------+ + + + | POC GLUCOSE | Routin | 05/18/2018 | | Results for this | | | e | 9:07 PM | | procedure are in the | | | | PDT | | results section. | + +--------+ + + + | POC GLUCOSE | Routin | 05/18/2018 | | Results for this | | | e | 5:57 PM | | procedure are in the | | | | PDT | | results section. | + +--------+ + + + | POC GLUCOSE | Routin | 05/18/2018 | | Results for this | | | e | 2:19 PM | | procedure are in the | | | | PDT | | results section. | + +--------+ + + + | GENTAMICIN, TROUGH | Routin | 05/18/2018 | | Results for this | | | e | 1:42 PM | | procedure are in the | | | | PDT | | results section. | + +--------+ + + + | POC GLUCOSE | Routin | 05/18/2018 | | Results for this | | | e | 11:24 AM | | procedure are in the | | | | PDT | | results section. | + +--------+ + + + | POC GLUCOSE | Routin | 05/18/2018 | | Results for this | | | e | 10:15 AM | | procedure are in the | | | | PDT | | results section. | + +--------+ + + + | POC GLUCOSE | Routin | 05/18/2018 | | Results for this | | | e | 9:11 AM | | procedure are in the | | | | PDT | | results section. | + +--------+ + + + | POC GLUCOSE | Routin | 05/18/2018 | | Results for this | | | e | 8:34 AM | | procedure are in the | | | | PDT | | results section. | + +--------+ + + + | POC GLUCOSE | Routin | 05/18/2018 | | Results for this | | | e | 6:26 AM | | procedure are in the | | | | PDT | | results section. | + +--------+ + + + | CBC NO DIFFERENTIAL | Routin | 05/18/2018 | | Results for this | | | e | 5:05 AM | | procedure are in the | | | | PDT | | results section. | + +--------+ + + + | MAGNESIUM | Routin | 05/18/2018 | | Results for this | | | e | 5:05 AM | | procedure are in the | | | | PDT | | results section. | + +--------+ + + + | BASIC METABOLIC | Routin | 05/18/2018 | | Results for this | | PANEL | e | 5:05 AM | | procedure are in the | | | | PDT | | results section. | + +--------+ + + + | XR CHEST 1 VIEW | Routin | 05/18/2018 | | Results for this | | | e | 4:57 AM | | procedure are in the | | | | PDT | | results section. | + +--------+ + + + | POC GLUCOSE | Routin | 05/18/2018 | | Results for this | | | e | 4:16 AM | | procedure are in the | | | | PDT | | results section. | + +--------+ + + + | POC GLUCOSE | Routin | 05/18/2018 | | Results for this | | | e | 3:10 AM | | procedure are in the | | | | PDT | | results section. | + +--------+ + + + | POC GLUCOSE | Routin | 05/18/2018 | | Results for this | | | e | 2:05 AM | | procedure are in the | | | | PDT | | results section. | + +--------+ + + + | POC GLUCOSE | Routin | 05/18/2018 | | Results for this | | | e | 1:33 AM | | procedure are in the | | | | PDT | | results section. | + +--------+ + + + | POC GLUCOSE | Routin | 05/18/2018 | | Results for this | | | e | 12:27 AM | | procedure are in the | | | | PDT | | results section. | + +--------+ + + + | POTASSIUM | Routin | 05/18/2018 | | Results for this | | | e | 12:01 AM | | procedure are in the | | | | PDT | | results section. | + +--------+ + + + | MAGNESIUM | Routin | 05/18/2018 | | Results for this | | | e | 12:01 AM | | procedure are in the | | | | PDT | | results section. | + +--------+ + + + | POC GLUCOSE | Routin | 05/17/2018 | | Results for this | | | e | 11:21 PM | | procedure are in the | | | | PDT | | results section. | + +--------+ + + + | POC GLUCOSE | Routin | 05/17/2018 | | Results for this | | | e | 10:13 PM | | procedure are in the | | | | PDT | | results section. | + +--------+ + + + | POC GLUCOSE | Routin | 05/17/2018 | | Results for this | | | e | 9:10 PM | | procedure are in the | | | | PDT | | results section. | + +--------+ + + + | POC GLUCOSE | Routin | 05/17/2018 | | Results for this | | | e | 7:57 PM | | procedure are in the | | | | PDT | | results section. | + +--------+ + + + | POC GLUCOSE | Routin | 05/17/2018 | | Results for this | | | e | 6:49 PM | | procedure are in the | | | | PDT | | results section. | + +--------+ + + + | POC GLUCOSE | Routin | 05/17/2018 | | Results for this | | | e | 5:45 PM | | procedure are in the | | | | PDT | | results section. | + +--------+ + + + | POC GLUCOSE | Routin | 05/17/2018 | | Results for this | | | e | 4:37 PM | | procedure are in the | | | | PDT | | results section. | + +--------+ + + + | POC GLUCOSE | Routin | 05/17/2018 | | Results for this | | | e | 3:20 PM | | procedure are in the | | | | PDT | | results section. | + +--------+ + + + | POC GLUCOSE | Routin | 05/17/2018 | | Results for this | | | e | 1:55 PM | | procedure are in the | | | | PDT | | results section. | + +--------+ + + + | POC GLUCOSE | Routin | 05/17/2018 | | Results for this | | | e | 12:45 PM | | procedure are in the | | | | PDT | | results section. | + +--------+ + + + | POTASSIUM | Routin | 05/17/2018 | | Results for this | | | e | 12:45 PM | | procedure are in the | | | | PDT | | results section. | + +--------+ + + + | POC GLUCOSE | Routin | 05/17/2018 | | Results for this | | | e | 11:56 AM | | procedure are in the | | | | PDT | | results section. | + +--------+ + + + | POC GLUCOSE | Routin | 05/17/2018 | | Results for this | | | e | 10:50 AM | | procedure are in the | | | | PDT | | results section. | + +--------+ + + + | POTASSIUM | Routin | 05/17/2018 | | Results for this | | | e | 8:58 AM | | procedure are in the | | | | PDT | | results section. | + +--------+ + + + | POC GLUCOSE | Routin | 05/17/2018 | | Results for this | | | e | 8:53 AM | | procedure are in the | | | | PDT | | results section. | + +--------+ + + + | POC GLUCOSE | Routin | 05/17/2018 | | Results for this | | | e | 7:35 AM | | procedure are in the | | | | PDT | | results section. | + +--------+ + + + | XR CHEST 1 VIEW | Routin | 05/17/2018 | | Results for this | | | e | 5:39 AM | | procedure are in the | | | | PDT | | results section. | + +--------+ + + + | POC GLUCOSE | Routin | 05/17/2018 | | Results for this | | | e | 5:09 AM | | procedure are in the | | | | PDT | | results section. | + +--------+ + + + | EXTERNAL LAB: CBC | Routin | 05/17/2018 | | Results for this | | | e | 3:05 AM | | procedure are in the | | | | PDT | | results section. | + +--------+ + + + | POC GLUCOSE | Routin | 05/17/2018 | | Results for this | | | e | 3:05 AM | | procedure are in the | | | | PDT | | results section. | + +--------+ + + + | MAGNESIUM | Routin | 05/17/2018 | | Results for this | | | e | 3:05 AM | | procedure are in the | | | | PDT | | results section. | + +--------+ + + + | HEMOGLOBIN A1C | Routin | 05/17/2018 | | Results for this | | | e | 3:05 AM | | procedure are in the | | | | PDT | | results section. | + +--------+ + + + | BASIC METABOLIC | Routin | 05/17/2018 | | Results for this | | PANEL | e | 3:05 AM | | procedure are in the | | | | PDT | | results section. | + +--------+ + + + | POC GLUCOSE | Routin | 05/17/2018 | | Results for this | | | e | 12:57 AM | | procedure are in the | | | | PDT | | results section. | + +--------+ + + + | POC GLUCOSE | Routin | 05/16/2018 | | Results for this | | | e | 11:50 PM | | procedure are in the | | | | PDT | | results section. | + +--------+ + + + | POTASSIUM | Routin | 05/16/2018 | | Results for this | | | e | 11:49 PM | | procedure are in the | | | | PDT | | results section. | + +--------+ + + + | POC GLUCOSE | Routin | 05/16/2018 | | Results for this | | | e | 10:45 PM | | procedure are in the | | | | PDT | | results section. | + +--------+ + + + | POC GLUCOSE | Routin | 05/16/2018 | | Results for this | | | e | 9:40 PM | | procedure are in the | | | | PDT | | results section. | + +--------+ + + + | POC GLUCOSE | Routin | 05/16/2018 | | Results for this | | | e | 8:36 PM | | procedure are in the | | | | PDT | | results section. | + +--------+ + + + | POTASSIUM | Routin | 05/16/2018 | | Results for this | | | e | 7:34 PM | | procedure are in the | | | | PDT | | results section. | + +--------+ + + + | POC GLUCOSE | Routin | 05/16/2018 | | Results for this | | | e | 7:32 PM | | procedure are in the | | | | PDT | | results section. | + +--------+ + + + | POC GLUCOSE | Routin | 05/16/2018 | | Results for this | | | e | 6:00 PM | | procedure are in the | | | | PDT | | results section. | + +--------+ + + + | POC GLUCOSE | Routin | 05/16/2018 | | Results for this | | | e | 5:09 PM | | procedure are in the | | | | PDT | | results section. | + +--------+ + + + | POTASSIUM | Routin | 05/16/2018 | | Results for this | | | e | 4:10 PM | | procedure are in the | | | | PDT | | results section. | + +--------+ + + + | POC GLUCOSE | Routin | 05/16/2018 | | Results for this | | | e | 4:09 PM | | procedure are in the | | | | PDT | | results section. | + +--------+ + + + | POC GLUCOSE | Routin | 05/16/2018 | | Results for this | | | e | 2:22 PM | | procedure are in the | | | | PDT | | results section. | + +--------+ + + + | POC GLUCOSE | Routin | 05/16/2018 | | Results for this | | | e | 1:33 PM | | procedure are in the | | | | PDT | | results section. | + +--------+ + + + | XR CHEST 1 VIEW | Routin | 05/16/2018 | | Results for this | | | e | 12:29 PM | | procedure are in the | | | | PDT | | results section. | + +--------+ + + + | ECG 12 LEAD | Routin | 05/16/2018 | | Results for this | | | e | 12:28 PM | | procedure are in the | | | | PDT | | results section. | + +--------+ + + + | POC GLUCOSE | Routin | 05/16/2018 | | Results for this | | | e | 12:27 PM | | procedure are in the | | | | PDT | | results section. | + +--------+ + + + | CALCIUM, IONIZED | Routin | 05/16/2018 | | Results for this | | | e | 12:27 PM | | procedure are in the | | | | PDT | | results section. | + +--------+ + + + | EXTERNAL LAB: CBC | Routin | 05/16/2018 | | Results for this | | | e | 12:26 PM | | procedure are in the | | | | PDT | | results section. | + +--------+ + + + | PTT | Routin | 05/16/2018 | | Results for this | | | e | 12:26 PM | | procedure are in the | | | | PDT | | results section. | + +--------+ + + + | PROTIME INR | Routin | 05/16/2018 | | Results for this | | | e | 12:26 PM | | procedure are in the | | | | PDT | | results section. | + +--------+ + + + | FIBRINOGEN | Routin | 05/16/2018 | | Results for this | | | e | 12:26 PM | | procedure are in the | | | | PDT | | results section. | + +--------+ + + + | MAGNESIUM | Routin | 05/16/2018 | | Results for this | | | e | 12:26 PM | | procedure are in the | | | | PDT | | results section. | + +--------+ + + + | BASIC METABOLIC | Routin | 05/16/2018 | | Results for this | | PANEL | e | 12:26 PM | | procedure are in the | | | | PDT | | results section. | + +--------+ + + + | POC CG 4, ISTAT | Routin | 05/16/2018 | | Results for this | | ARTERIAL | e | 11:15 AM | | procedure are in the | | | | PDT | | results section. | + +--------+ + + + | CLIFF DUNNE, | Routin | 05/16/2018 | | Results for this | | ARTERIAL | e | 11:11 AM | | procedure are in the | | | | PDT | | results section. | + +--------+ + + + | ECHO | Routin | 05/16/2018 | | Results for this | | TRANSESOPHAGEAL(CLAUDIA) | e | 11:07 AM | | procedure are in the | | - PERIOPERATIVE | | PDT | | results section. | + +--------+ + + + | JOSE ROD | Routin | 05/16/2018 | | Results for this | | ARTERIAL | e | 10:31 AM | | procedure are in the | | | | PDT | | results section. | + +--------+ + + + | CLIFF DUNNE, | Routin | 05/16/2018 | | Results for this | | ARTERIAL | e | 10:24 AM | | procedure are in the | | | | PDT | | results section. | + +--------+ + + + | CLIFF DUNNE, | Routin | 05/16/2018 | | Results for this | | ARTERIAL | e | 9:57 AM | | procedure are in the | | | | PDT | | results section. | + +--------+ + + + | POC RADHA 4, ISALYSSAT | Routin | 05/16/2018 | | Results for this | | ARTERIAL | e | 9:31 AM | | procedure are in the | | | | PDT | | results section. | + +--------+ + + + | CLIFF DUNNE, | Routin | 05/16/2018 | | Results for this | | ARTERIAL | e | 9:27 AM | | procedure are in the | | | | PDT | | results section. | + +--------+ + + + | CULTURE, TISSUE, | Routin | 05/16/2018 | | Results for this | | SMEAR, WITH | e | 9:05 AM | | procedure are in the | | ANAEROBES | | PDT | | results section. | + +--------+ + + + | POC CLIFF GARCIA, | Routin | 05/16/2018 | | Results for this | | ARTERIAL | e | 8:58 AM | | procedure are in the | | | | PDT | | results section. | + +--------+ + + + | POC CLIFF GARCIA, | Routin | 05/16/2018 | | Results for this | | ARTERIAL | e | 8:27 AM | | procedure are in the | | | | PDT | | results section. | + +--------+ + + + | POC RADHA 4, ISTAT | Routin | 05/16/2018 | | Results for this | | ARTERIAL | e | 7:56 AM | | procedure are in the | | | | PDT | | results section. | + +--------+ + + + | CLIFF DUNNE, | Routin | 05/16/2018 | | Results for this | | ARTERIAL | e | 7:51 AM | | procedure are in the | | | | PDT | | results section. | + +--------+ + + + | POC GLUCOSE | Routin | 05/16/2018 | | Results for this | | | e | 6:13 AM | | procedure are in the | | | | PDT | | results section. | + +--------+ + + + | EXTERNAL LAB: CBC | Routin | 05/16/2018 | | Results for this | | | e | 3:27 AM | | procedure are in the | | | | PDT | | results section. | + +--------+ + + + | PHOSPHORUS | Routin | 05/16/2018 | | Results for this | | | e | 3:27 AM | | procedure are in the | | | | PDT | | results section. | + +--------+ + + + | MAGNESIUM | Routin | 05/16/2018 | | Results for this | | | e | 3:27 AM | | procedure are in the | | | | PDT | | results section. | + +--------+ + + + | BASIC METABOLIC | Routin | 05/16/2018 | | Results for this | | PANEL | e | 3:27 AM | | procedure are in the | | | | PDT | | results section. | + +--------+ + + + | POC GLUCOSE | Routin | 05/15/2018 | | Results for this | | | e | 9:12 PM | | procedure are in the | | | | PDT | | results section. | + +--------+ + + + | MRSA NAAT | STAT | 05/15/2018 | | Results for this | | | | 7:18 PM | | procedure are in the | | | | PDT | | results section. | + +--------+ + + + | POC GLUCOSE | Routin | 05/15/2018 | | Results for this | | | e | 4:20 PM | | procedure are in the | | | | PDT | | results section. | + +--------+ + + + | POC GLUCOSE | Routin | 05/15/2018 | | Results for this | | | e | 12:11 PM | | procedure are in the | | | | PDT | | results section. | + +--------+ + + + | POC GLUCOSE | Routin | 05/15/2018 | | Results for this | | | e | 5:37 AM | | procedure are in the | | | | PDT | | results section. | + +--------+ + + + | EXTERNAL LAB: CBC | Routin | 05/15/2018 | | Results for this | | | e | 3:51 AM | | procedure are in the | | | | PDT | | results section. | + +--------+ + + + | PHOSPHORUS | Routin | 05/15/2018 | | Results for this | | | e | 3:51 AM | | procedure are in the | | | | PDT | | results section. | + +--------+ + + + | MAGNESIUM | Routin | 05/15/2018 | | Results for this | | | e | 3:51 AM | | procedure are in the | | | | PDT | | results section. | + +--------+ + + + | BASIC METABOLIC | Routin | 05/15/2018 | | Results for this | | PANEL | e | 3:51 AM | | procedure are in the | | | | PDT | | results section. | + +--------+ + + + | POC GLUCOSE | Routin | 05/14/2018 | | Results for this | | | e | 9:39 PM | | procedure are in the | | | | PDT | | results section. | + +--------+ + + + | POC GLUCOSE | Routin | 05/14/2018 | | Results for this | | | e | 5:09 PM | | procedure are in the | | | | PDT | | results section. | + +--------+ + + + | POC GLUCOSE | Routin | 05/14/2018 | | Results for this | | | e | 11:10 AM | | procedure are in the | | | | PDT | | results section. | + +--------+ + + + | CV CARDIAC PROCEDURE | Routin | 05/14/2018 | | Results for this | | | e | 10:47 AM | | procedure are in the | | | | PDT | | results section. | + +--------+ + + + | POC GLUCOSE | Routin | 05/14/2018 | | Results for this | | | e | 5:29 AM | | procedure are in the | | | | PDT | | results section. | + +--------+ + + + | EXTERNAL LAB: CBC | Routin | 05/14/2018 | | Results for this | | | e | 4:24 AM | | procedure are in the | | | | PDT | | results section. | + +--------+ + + + | PHOSPHORUS | Routin | 05/14/2018 | | Results for this | | | e | 4:24 AM | | procedure are in the | | | | PDT | | results section. | + +--------+ + + + | MAGNESIUM | Routin | 05/14/2018 | | Results for this | | | e | 4:24 AM | | procedure are in the | | | | PDT | | results section. | + +--------+ + + + | BASIC METABOLIC | Routin | 05/14/2018 | | Results for this | | PANEL | e | 4:24 AM | | procedure are in the | | | | PDT | | results section. | + +--------+ + + + | POC GLUCOSE | Routin | 05/13/2018 | | Results for this | | | e | 9:01 PM | | procedure are in the | | | | PDT | | results section. | + +--------+ + + + | POC GLUCOSE | Routin | 05/13/2018 | | Results for this | | | e | 4:49 PM | | procedure are in the | | | | PDT | | results section. | + +--------+ + + + | POC GLUCOSE | Routin | 05/13/2018 | | Results for this | | | e | 11:30 AM | | procedure are in the | | | | PDT | | results section. | + +--------+ + + + | POC GLUCOSE | Routin | 05/13/2018 | | Results for this | | | e | 5:34 AM | | procedure are in the | | | | PDT | | results section. | + +--------+ + + + | EXTERNAL LAB: CBC | Routin | 05/13/2018 | | Results for this | | | e | 4:05 AM | | procedure are in the | | | | PDT | | results section. | + +--------+ + + + | PHOSPHORUS | Routin | 05/13/2018 | | Results for this | | | e | 4:05 AM | | procedure are in the | | | | PDT | | results section. | + +--------+ + + + | MAGNESIUM | Routin | 05/13/2018 | | Results for this | | | e | 4:05 AM | | procedure are in the | | | | PDT | | results section. | + +--------+ + + + | BASIC METABOLIC | Routin | 05/13/2018 | | Results for this | | PANEL | e | 4:05 AM | | procedure are in the | | | | PDT | | results section. | + +--------+ + + + | POC GLUCOSE | Routin | 05/12/2018 | | Results for this | | | e | 9:08 PM | | procedure are in the | | | | PDT | | results section. | + +--------+ + + + | POC GLUCOSE | Routin | 05/12/2018 | | Results for this | | | e | 4:40 PM | | procedure are in the | | | | PDT | | results section. | + +--------+ + + + | POC GLUCOSE | Routin | 05/12/2018 | | Results for this | | | e | 11:35 AM | | procedure are in the | | | | PDT | | results section. | + +--------+ + + + | ECHO TRANSESOPHAGEAL | Routin | 05/12/2018 | | Results for this | | (CLAUDIA) | e | 11:30 AM | | procedure are in the | | | | PDT | | results section. | + +--------+ + + + | STEPHEN TROUGH | Routin | 05/12/2018 | | Results for this | | | e | 7:38 AM | | procedure are in the | | | | PDT | | results section. | + +--------+ + + + | POC GLUCOSE | Routin | 05/12/2018 | | Results for this | | | e | 5:30 AM | | procedure are in the | | | | PDT | | results section. | + +--------+ + + + | EXTERNAL LAB: CBC | Routin | 05/12/2018 | | Results for this | | | e | 3:19 AM | | procedure are in the | | | | PDT | | results section. | + +--------+ + + + | PHOSPHORUS | Routin | 05/12/2018 | | Results for this | | | e | 3:19 AM | | procedure are in the | | | | PDT | | results section. | + +--------+ + + + | MAGNESIUM | Routin | 05/12/2018 | | Results for this | | | e | 3:19 AM | | procedure are in the | | | | PDT | | results section. | + +--------+ + + + | GENTAMICIN, PEAK | Routin | 05/12/2018 | | Results for this | | | e | 3:19 AM | | procedure are in the | | | | PDT | | results section. | + +--------+ + + + | BASIC METABOLIC | Routin | 05/12/2018 | | Results for this | | PANEL | e | 3:19 AM | | procedure are in the | | | | PDT | | results section. | + +--------+ + + + | POC GLUCOSE | Routin | 05/11/2018 | | Results for this | | | e | 9:40 PM | | procedure are in the | | | | PDT | | results section. | + +--------+ + + + | POC GLUCOSE | Routin | 05/11/2018 | | Results for this | | | e | 4:26 PM | | procedure are in the | | | | PDT | | results section. | + +--------+ + + + | POC GLUCOSE | Routin | 05/11/2018 | | Results for this | | | e | 12:36 PM | | procedure are in the | | | | PDT | | results section. | + +--------+ + + + | CULTURE, BLOOD, 2ND | Timed | 05/11/2018 | | Results for this | | SPECIMEN (NON-ORD) | | 9:23 AM | | procedure are in the | | | | PDT | | results section. | + +--------+ + + + | CULTURE, BLOOD | Timed | 05/11/2018 | | Results for this | | | | 9:23 AM | | procedure are in the | | | | PDT | | results section. | + +--------+ + + + | POC GLUCOSE | Routin | 05/11/2018 | | Results for this | | | e | 5:43 AM | | procedure are in the | | | | PDT | | results section. | + +--------+ + + + | EXTERNAL LAB: CBC | Routin | 05/11/2018 | | Results for this | | | e | 4:04 AM | | procedure are in the | | | | PDT | | results section. | + +--------+ + + + | PHOSPHORUS | Routin | 05/11/2018 | | Results for this | | | e | 4:04 AM | | procedure are in the | | | | PDT | | results section. | + +--------+ + + + | MAGNESIUM | Routin | 05/11/2018 | | Results for this | | | e | 4:04 AM | | procedure are in the | | | | PDT | | results section. | + +--------+ + + + | BASIC METABOLIC | Routin | 05/11/2018 | | Results for this | | PANEL | e | 4:04 AM | | procedure are in the | | | | PDT | | results section. | + +--------+ + + + | TROPONIN I | Routin | 05/11/2018 | | Results for this | | | e | 12:07 AM | | procedure are in the | | | | PDT | | results section. | + +--------+ + + + | POC GLUCOSE | Routin | 05/10/2018 | | Results for this | | | e | 9:08 PM | | procedure are in the | | | | PDT | | results section. | + +--------+ + + + | TROPONIN I | Routin | 05/10/2018 | | Results for this | | | e | 5:48 PM | | procedure are in the | | | | PDT | | results section. | + +--------+ + + + | POC GLUCOSE | Routin | 05/10/2018 | | Results for this | | | e | 4:45 PM | | procedure are in the | | | | PDT | | results section. | + +--------+ + + + | ECG 12 LEAD | Routin | 05/10/2018 | | Results for this | | | e | 1:14 PM | | procedure are in the | | | | PDT | | results section. | + +--------+ + + + | TROPONIN I | Routin | 05/10/2018 | | Results for this | | | e | 1:03 PM | | procedure are in the | | | | PDT | | results section. | + +--------+ + + + | POC GLUCOSE | Routin | 05/10/2018 | | Results for this | | | e | 11:36 AM | | procedure are in the | | | | PDT | | results section. | + +--------+ + + + | CULTURE, BLOOD, 2ND | Timed | 05/10/2018 | | Results for this | | SPECIMEN (NON-ORD) | | 10:20 AM | | procedure are in the | | | | PDT | | results section. | + +--------+ + + + | CULTURE, BLOOD | Timed | 05/10/2018 | | Results for this | | | | 10:19 AM | | procedure are in the | | | | PDT | | results section. | + +--------+ + + + | POC GLUCOSE | Routin | 05/10/2018 | | Results for this | | | e | 6:00 AM | | procedure are in the | | | | PDT | | results section. | + +--------+ + + + | EXTERNAL LAB: CBC | Routin | 05/10/2018 | | Results for this | | | e | 4:01 AM | | procedure are in the | | | | PDT | | results section. | + +--------+ + + + | PHOSPHORUS | Routin | 05/10/2018 | | Results for this | | | e | 4:01 AM | | procedure are in the | | | | PDT | | results section. | + +--------+ + + + | MAGNESIUM | Routin | 05/10/2018 | | Results for this | | | e | 4:01 AM | | procedure are in the | | | | PDT | | results section. | + +--------+ + + + | BASIC METABOLIC | Routin | 05/10/2018 | | Results for this | | PANEL | e | 4:01 AM | | procedure are in the | | | | PDT | | results section. | + +--------+ + + + | POC GLUCOSE | Routin | 05/09/2018 | | Results for this | | | e | 9:26 PM | | procedure are in the | | | | PDT | | results section. | + +--------+ + + + | POC GLUCOSE | Routin | 05/09/2018 | | Results for this | | | e | 4:07 PM | | procedure are in the | | | | PDT | | results section. | + +--------+ + + + | POC GLUCOSE | Routin | 05/09/2018 | | Results for this | | | e | 11:34 AM | | procedure are in the | | | | PDT | | results section. | + +--------+ + + + | CULTURE, BLOOD, 2ND | Timed | 05/09/2018 | | Results for this | | SPECIMEN (NON-ORD) | | 9:56 AM | | procedure are in the | | | | PDT | | results section. | + +--------+ + + + | CULTURE, BLOOD | Timed | 05/09/2018 | | Results for this | | | | 9:43 AM | | procedure are in the | | | | PDT | | results section. | + +--------+ + + + | POC GLUCOSE | Routin | 05/09/2018 | | Results for this | | | e | 8:00 AM | | procedure are in the | | | | PDT | | results section. | + +--------+ + + + | POC GLUCOSE | Routin | 05/09/2018 | | Results for this | | | e | 4:05 AM | | procedure are in the | | | | PDT | | results section. | + +--------+ + + + | EXTERNAL LAB: CBC | Routin | 05/09/2018 | | Results for this | | | e | 4:03 AM | | procedure are in the | | | | PDT | | results section. | + +--------+ + + + | PHOSPHORUS | Routin | 05/09/2018 | | Results for this | | | e | 4:03 AM | | procedure are in the | | | | PDT | | results section. | + +--------+ + + + | MAGNESIUM | Routin | 05/09/2018 | | Results for this | | | e | 4:03 AM | | procedure are in the | | | | PDT | | results section. | + +--------+ + + + | BASIC METABOLIC | Routin | 05/09/2018 | | Results for this | | PANEL | e | 4:03 AM | | procedure are in the | | | | PDT | | results section. | + +--------+ + + + | POC GLUCOSE | Routin | 05/09/2018 | | Results for this | | | e | 12:06 AM | | procedure are in the | | | | PDT | | results section. | + +--------+ + + + | POC GLUCOSE | Routin | 05/08/2018 | | Results for this | | | e | 8:03 PM | | procedure are in the | | | | PDT | | results section. | + +--------+ + + + | MRI ANKLE LEFT WO | Routin | 05/08/2018 | | Results for this | | CONTRAST | e | 5:40 PM | | procedure are in the | | | | PDT | | results section. | + +--------+ + + + | POC GLUCOSE | Routin | 05/08/2018 | | Results for this | | | e | 4:07 PM | | procedure are in the | | | | PDT | | results section. | + +--------+ + + + | ECHO COMPLETE | Routin | 05/08/2018 | | Results for this | | | e | 3:14 PM | | procedure are in the | | | | PDT | | results section. | + +--------+ + + + | POC GLUCOSE | Routin | 05/08/2018 | | Results for this | | | e | 12:12 PM | | procedure are in the | | | | PDT | | results section. | + +--------+ + + + | CULTURE, BLOOD, 2ND | Timed | 05/08/2018 | | Results for this | | SPECIMEN (NON-ORD) | | 11:29 AM | | procedure are in the | | | | PDT | | results section. | + +--------+ + + + | CULTURE, BLOOD | Timed | 05/08/2018 | | Results for this | | | | 11:18 AM | | procedure are in the | | | | PDT | | results section. | + +--------+ + + + | XR ANKLE LEFT 3 + VW | Routin | 05/08/2018 | | Results for this | | | e | 11:05 AM | | procedure are in the | | | | PDT | | results section. | + +--------+ + + + | POC GLUCOSE | Routin | 05/08/2018 | | Results for this | | | e | 7:35 AM | | procedure are in the | | | | PDT | | results section. | + +--------+ + + + | POC GLUCOSE | Routin | 05/08/2018 | | Results for this | | | e | 6:26 AM | | procedure are in the | | | | PDT | | results section. | + +--------+ + + + | EXTERNAL LAB: CBC | Routin | 05/08/2018 | | Results for this | | | e | 4:04 AM | | procedure are in the | | | | PDT | | results section. | + +--------+ + + + | POC GLUCOSE | Routin | 05/08/2018 | | Results for this | | | e | 4:04 AM | | procedure are in the | | | | PDT | | results section. | + +--------+ + + + | PHOSPHORUS | Routin | 05/08/2018 | | Results for this | | | e | 4:04 AM | | procedure are in the | | | | PDT | | results section. | + +--------+ + + + | MAGNESIUM | Routin | 05/08/2018 | | Results for this | | | e | 4:04 AM | | procedure are in the | | | | PDT | | results section. | + +--------+ + + + | BASIC METABOLIC | Routin | 05/08/2018 | | Results for this | | PANEL | e | 4:04 AM | | procedure are in the | | | | PDT | | results section. | + +--------+ + + + | POC GLUCOSE | Routin | 05/08/2018 | | Results for this | | | e | 1:59 AM | | procedure are in the | | | | PDT | | results section. | + +--------+ + + + | POC GLUCOSE | Routin | 05/08/2018 | | Results for this | | | e | 12:12 AM | | procedure are in the | | | | PDT | | results section. | + +--------+ + + + | POC GLUCOSE | Routin | 05/07/2018 | | Results for this | | | e | 10:08 PM | | procedure are in the | | | | PDT | | results section. | + +--------+ + + + | POC GLUCOSE | Routin | 05/07/2018 | | Results for this | | | e | 8:21 PM | | procedure are in the | | | | PDT | | results section. | + +--------+ + + + | CT LUMBAR SPINE WO | Routin | 05/07/2018 | | Results for this | | CONTRAST | e | 6:22 PM | | procedure are in the | | | | PDT | | results section. | + +--------+ + + + | POC GLUCOSE | Routin | 05/07/2018 | | Results for this | | | e | 5:22 PM | | procedure are in the | | | | PDT | | results section. | + +--------+ + + + | CULTURE, BLOOD | Timed | 05/07/2018 | | Results for this | | | | 5:05 PM | | procedure are in the | | | | PDT | | results section. | + +--------+ + + + | MRI LUMBAR SPINE W | Routin | 05/07/2018 | | Results for this | | WO CONTRAST | e | 3:28 PM | | procedure are in the | | | | PDT | | results section. | + +--------+ + + + | POC GLUCOSE | Routin | 05/07/2018 | | Results for this | | | e | 2:34 PM | | procedure are in the | | | | PDT | | results section. | + +--------+ + + + | POC GLUCOSE | Routin | 05/07/2018 | | Results for this | | | e | 12:34 PM | | procedure are in the | | | | PDT | | results section. | + +--------+ + + + | POC GLUCOSE | Routin | 05/07/2018 | | Results for this | | | e | 10:40 AM | | procedure are in the | | | | PDT | | results section. | + +--------+ + + + | POC GLUCOSE | Routin | 05/07/2018 | | Results for this | | | e | 8:06 AM | | procedure are in the | | | | PDT | | results section. | + +--------+ + + + | POC GLUCOSE | Routin | 05/07/2018 | | Results for this | | | e | 5:53 AM | | procedure are in the | | | | PDT | | results section. | + +--------+ + + + | POC GLUCOSE | Routin | 05/07/2018 | | Results for this | | | e | 4:05 AM | | procedure are in the | | | | PDT | | results section. | + +--------+ + + + | EXTERNAL LAB: CBC | Routin | 05/07/2018 | | Results for this | | | e | 3:57 AM | | procedure are in the | | | | PDT | | results section. | + +--------+ + + + | SEDIMENTATION RATE, | Routin | 05/07/2018 | | Results for this | | AUTOMATED | e | 3:57 AM | | procedure are in the | | | | PDT | | results section. | + +--------+ + + + | C-REACTIVE PROTEIN | Routin | 05/07/2018 | | Results for this | | | e | 3:57 AM | | procedure are in the | | | | PDT | | results section. | + +--------+ + + + | PHOSPHORUS | Routin | 05/07/2018 | | Results for this | | | e | 3:57 AM | | procedure are in the | | | | PDT | | results section. | + +--------+ + + + | MAGNESIUM | Routin | 05/07/2018 | | Results for this | | | e | 3:57 AM | | procedure are in the | | | | PDT | | results section. | + +--------+ + + + | BASIC METABOLIC | Routin | 05/07/2018 | | Results for this | | PANEL | e | 3:57 AM | | procedure are in the | | | | PDT | | results section. | + +--------+ + + + | POC GLUCOSE | Routin | 05/07/2018 | | Results for this | | | e | 3:03 AM | | procedure are in the | | | | PDT | | results section. | + +--------+ + + + | POC GLUCOSE | Routin | 05/07/2018 | | Results for this | | | e | 1:59 AM | | procedure are in the | | | | PDT | | results section. | + +--------+ + + + | POC GLUCOSE | Routin | 05/07/2018 | | Results for this | | | e | 1:01 AM | | procedure are in the | | | | PDT | | results section. | + +--------+ + + + | POC GLUCOSE | Routin | 05/06/2018 | | Results for this | | | e | 11:57 PM | | procedure are in the | | | | PDT | | results section. | + +--------+ + + + | POC GLUCOSE | Routin | 05/06/2018 | | Results for this | | | e | 10:00 PM | | procedure are in the | | | | PDT | | results section. | + +--------+ + + + | US RENAL LIMITED | Routin | 05/06/2018 | | Results for this | | | e | 9:20 PM | | procedure are in the | | | | PDT | | results section. | + +--------+ + + + | POC GLUCOSE | Routin | 05/06/2018 | | Results for this | | | e | 8:08 PM | | procedure are in the | | | | PDT | | results section. | + +--------+ + + + | POC GLUCOSE | Routin | 05/06/2018 | | Results for this | | | e | 6:04 PM | | procedure are in the | | | | PDT | | results section. | + +--------+ + + + | POC GLUCOSE | Routin | 05/06/2018 | | Results for this | | | e | 4:25 PM | | procedure are in the | | | | PDT | | results section. | + +--------+ + + + | POC GLUCOSE | Routin | 05/06/2018 | | Results for this | | | e | 3:26 PM | | procedure are in the | | | | PDT | | results section. | + +--------+ + + + | POC GLUCOSE | Routin | 05/06/2018 | | Results for this | | | e | 2:06 PM | | procedure are in the | | | | PDT | | results section. | + +--------+ + + + | POC GLUCOSE | Routin | 05/06/2018 | | Results for this | | | e | 12:48 PM | | procedure are in the | | | | PDT | | results section. | + +--------+ + + + | XR LUMBAR SPINE 2 OR | Routin | 05/06/2018 | | Results for this | | 3 VW | e | 12:34 PM | | procedure are in the | | | | PDT | | results section. | + +--------+ + + + | POC GLUCOSE | Routin | 05/06/2018 | | Results for this | | | e | 12:12 PM | | procedure are in the | | | | PDT | | results section. | + +--------+ + + + | POC GLUCOSE | Routin | 05/06/2018 | | Results for this | | | e | 11:22 AM | | procedure are in the | | | | PDT | | results section. | + +--------+ + + + | POC GLUCOSE | Routin | 05/06/2018 | | Results for this | | | e | 10:12 AM | | procedure are in the | | | | PDT | | results section. | + +--------+ + + + | POC GLUCOSE | Routin | 05/06/2018 | | Results for this | | | e | 9:01 AM | | procedure are in the | | | | PDT | | results section. | + +--------+ + + + | POC GLUCOSE | Routin | 05/06/2018 | | Results for this | | | e | 7:56 AM | | procedure are in the | | | | PDT | | results section. | + +--------+ + + + | POC GLUCOSE | Routin | 05/06/2018 | | Results for this | | | e | 7:27 AM | | procedure are in the | | | | PDT | | results section. | + +--------+ + + + | POC GLUCOSE | Routin | 05/06/2018 | | Results for this | | | e | 6:08 AM | | procedure are in the | | | | PDT | | results section. | + +--------+ + + + | POC GLUCOSE | Routin | 05/06/2018 | | Results for this | | | e | 5:14 AM | | procedure are in the | | | | PDT | | results section. | + +--------+ + + + | POC GLUCOSE | Routin | 05/06/2018 | | Results for this | | | e | 4:03 AM | | procedure are in the | | | | PDT | | results section. | + +--------+ + + + | EXTERNAL LAB: CBC | Routin | 05/06/2018 | | Results for this | | | e | 4:00 AM | | procedure are in the | | | | PDT | | results section. | + +--------+ + + + | PHOSPHORUS | Routin | 05/06/2018 | | Results for this | | | e | 4:00 AM | | procedure are in the | | | | PDT | | results section. | + +--------+ + + + | MAGNESIUM | Routin | 05/06/2018 | | Results for this | | | e | 4:00 AM | | procedure are in the | | | | PDT | | results section. | + +--------+ + + + | BASIC METABOLIC | Routin | 05/06/2018 | | Results for this | | PANEL | e | 4:00 AM | | procedure are in the | | | | PDT | | results section. | + +--------+ + + + | POC GLUCOSE | Routin | 05/06/2018 | | Results for this | | | e | 3:10 AM | | procedure are in the | | | | PDT | | results section. | + +--------+ + + + | POC GLUCOSE | Routin | 05/06/2018 | | Results for this | | | e | 2:11 AM | | procedure are in the | | | | PDT | | results section. | + +--------+ + + + | POC GLUCOSE | Routin | 05/06/2018 | | Results for this | | | e | 12:51 AM | | procedure are in the | | | | PDT | | results section. | + +--------+ + + + | POC GLUCOSE | Routin | 05/06/2018 | | Results for this | | | e | 12:08 AM | | procedure are in the | | | | PDT | | results section. | + +--------+ + + + | POC GLUCOSE | Routin | 05/05/2018 | | Results for this | | | e | 11:07 PM | | procedure are in the | | | | PDT | | results section. | + +--------+ + + + | POC GLUCOSE | Routin | 05/05/2018 | | Results for this | | | e | 10:20 PM | | procedure are in the | | | | PDT | | results section. | + +--------+ + + + | POC GLUCOSE | Routin | 05/05/2018 | | Results for this | | | e | 9:02 PM | | procedure are in the | | | | PDT | | results section. | + +--------+ + + + | PHOSPHORUS | Routin | 05/05/2018 | | Results for this | | | e | 8:47 PM | | procedure are in the | | | | PDT | | results section. | + +--------+ + + + | MAGNESIUM | Routin | 05/05/2018 | | Results for this | | | e | 8:47 PM | | procedure are in the | | | | PDT | | results section. | + +--------+ + + + | BASIC METABOLIC | Routin | 05/05/2018 | | Results for this | | PANEL | e | 8:47 PM | | procedure are in the | | | | PDT | | results section. | + +--------+ + + + | POC GLUCOSE | Routin | 05/05/2018 | | Results for this | | | e | 8:36 PM | | procedure are in the | | | | PDT | | results section. | + +--------+ + + + | POC GLUCOSE | Routin | 05/05/2018 | | Results for this | | | e | 7:55 PM | | procedure are in the | | | | PDT | | results section. | + +--------+ + + + | POC GLUCOSE | Routin | 05/05/2018 | | Results for this | | | e | 6:30 PM | | procedure are in the | | | | PDT | | results section. | + +--------+ + + + | POC GLUCOSE | Routin | 05/05/2018 | | Results for this | | | e | 5:16 PM | | procedure are in the | | | | PDT | | results section. | + +--------+ + + + | POC GLUCOSE | Routin | 05/05/2018 | | Results for this | | | e | 5:04 PM | | procedure are in the | | | | PDT | | results section. | + +--------+ + + + | POC GLUCOSE | Routin | 05/05/2018 | | Results for this | | | e | 4:25 PM | | procedure are in the | | | | PDT | | results section. | + +--------+ + + + | POC GLUCOSE | Routin | 05/05/2018 | | Results for this | | | e | 3:31 PM | | procedure are in the | | | | PDT | | results section. | + +--------+ + + + | POC GLUCOSE | Routin | 05/05/2018 | | Results for this | | | e | 2:53 PM | | procedure are in the | | | | PDT | | results section. | + +--------+ + + + | PHOSPHORUS | Routin | 05/05/2018 | | Results for this | | | e | 2:17 PM | | procedure are in the | | | | PDT | | results section. | + +--------+ + + + | MAGNESIUM | Routin | 05/05/2018 | | Results for this | | | e | 2:17 PM | | procedure are in the | | | | PDT | | results section. | + +--------+ + + + | BASIC METABOLIC | Routin | 05/05/2018 | | Results for this | | PANEL | e | 2:17 PM | | procedure are in the | | | | PDT | | results section. | + +--------+ + + + | POC GLUCOSE | Routin | 05/05/2018 | | Results for this | | | e | 12:56 PM | | procedure are in the | | | | PDT | | results section. | + +--------+ + + + | POC GLUCOSE | Routin | 05/05/2018 | | Results for this | | | e | 12:06 PM | | procedure are in the | | | | PDT | | results section. | + +--------+ + + + | POC GLUCOSE | Routin | 05/05/2018 | | Results for this | | | e | 11:36 AM | | procedure are in the | | | | PDT | | results section. | + +--------+ + + + | POC GLUCOSE | Routin | 05/05/2018 | | Results for this | | | e | 10:43 AM | | procedure are in the | | | | PDT | | results section. | + +--------+ + + + | POC GLUCOSE | Routin | 05/05/2018 | | Results for this | | | e | 9:35 AM | | procedure are in the | | | | PDT | | results section. | + +--------+ + + + | POC GLUCOSE | Routin | 05/05/2018 | | Results for this | | | e | 8:59 AM | | procedure are in the | | | | PDT | | results section. | + +--------+ + + + | POC GLUCOSE | Routin | 05/05/2018 | | Results for this | | | e | 8:02 AM | | procedure are in the | | | | PDT | | results section. | + +--------+ + + + | POC GLUCOSE | Routin | 05/05/2018 | | Results for this | | | e | 6:58 AM | | procedure are in the | | | | PDT | | results section. | + +--------+ + + + | POC GLUCOSE | Routin | 05/05/2018 | | Results for this | | | e | 6:02 AM | | procedure are in the | | | | PDT | | results section. | + +--------+ + + + | POC GLUCOSE | Routin | 05/05/2018 | | Results for this | | | e | 5:03 AM | | procedure are in the | | | | PDT | | results section. | + +--------+ + + + | EXTERNAL LAB: CBC | Routin | 05/05/2018 | | Results for this | | | e | 4:11 AM | | procedure are in the | | | | PDT | | results section. | + +--------+ + + + | PHOSPHORUS | Routin | 05/05/2018 | | Results for this | | | e | 4:11 AM | | procedure are in the | | | | PDT | | results section. | + +--------+ + + + | MAGNESIUM | Routin | 05/05/2018 | | Results for this | | | e | 4:11 AM | | procedure are in the | | | | PDT | | results section. | + +--------+ + + + | HEMOGLOBIN A1C | Routin | 05/05/2018 | | Results for this | | | e | 4:11 AM | | procedure are in the | | | | PDT | | results section. | + +--------+ + + + | BASIC METABOLIC | Routin | 05/05/2018 | | Results for this | | PANEL | e | 4:11 AM | | procedure are in the | | | | PDT | | results section. | + +--------+ + + + | POC GLUCOSE | Routin | 05/05/2018 | | Results for this | | | e | 4:10 AM | | procedure are in the | | | | PDT | | results section. | + +--------+ + + + | POC GLUCOSE | Routin | 05/05/2018 | | Results for this | | | e | 3:15 AM | | procedure are in the | | | | PDT | | results section. | + +--------+ + + + | POC GLUCOSE | Routin | 05/05/2018 | | Results for this | | | e | 2:08 AM | | procedure are in the | | | | PDT | | results section. | + +--------+ + + + | POC GLUCOSE | Routin | 05/05/2018 | | Results for this | | | e | 12:59 AM | | procedure are in the | | | | PDT | | results section. | + +--------+ + + + | POC GLUCOSE | Routin | 05/04/2018 | | Results for this | | | e | 11:58 PM | | procedure are in the | | | | PDT | | results section. | + +--------+ + + + | POC GLUCOSE | Routin | 05/04/2018 | | Results for this | | | e | 10:59 PM | | procedure are in the | | | | PDT | | results section. | + +--------+ + + + | TROPONIN I | Routin | 05/04/2018 | | Results for this | | | e | 10:15 PM | | procedure are in the | | | | PDT | | results section. | + +--------+ + + + | POC GLUCOSE | Routin | 05/04/2018 | | Results for this | | | e | 10:04 PM | | procedure are in the | | | | PDT | | results section. | + +--------+ + + + | POC GLUCOSE | Routin | 05/04/2018 | | Results for this | | | e | 8:56 PM | | procedure are in the | | | | PDT | | results section. | + +--------+ + + + | POC GLUCOSE | Routin | 05/04/2018 | | Results for this | | | e | 8:01 PM | | procedure are in the | | | | PDT | | results section. | + +--------+ + + + | POC GLUCOSE | Routin | 05/04/2018 | | Results for this | | | e | 6:59 PM | | procedure are in the | | | | PDT | | results section. | + +--------+ + + + | POC GLUCOSE | Routin | 05/04/2018 | | Results for this | | | e | 6:08 PM | | procedure are in the | | | | PDT | | results section. | + +--------+ + + + | POTASSIUM | Routin | 05/04/2018 | | Results for this | | | e | 6:04 PM | | procedure are in the | | | | PDT | | results section. | + +--------+ + + + | PHOSPHORUS | Routin | 05/04/2018 | | Results for this | | | e | 6:04 PM | | procedure are in the | | | | PDT | | results section. | + +--------+ + + + | MAGNESIUM | Routin | 05/04/2018 | | Results for this | | | e | 6:04 PM | | procedure are in the | | | | PDT | | results section. | + +--------+ + + + | POC GLUCOSE | Routin | 05/04/2018 | | Results for this | | | e | 5:19 PM | | procedure are in the | | | | PDT | | results section. | + +--------+ + + + | POC GLUCOSE | Routin | 05/04/2018 | | Results for this | | | e | 4:37 PM | | procedure are in the | | | | PDT | | results section. | + +--------+ + + + | POC GLUCOSE | Routin | 05/04/2018 | | Results for this | | | e | 4:03 PM | | procedure are in the | | | | PDT | | results section. | + +--------+ + + + | POC GLUCOSE | Routin | 05/04/2018 | | Results for this | | | e | 3:33 PM | | procedure are in the | | | | PDT | | results section. | + +--------+ + + + | POC GLUCOSE | Routin | 05/04/2018 | | Results for this | | | e | 3:15 PM | | procedure are in the | | | | PDT | | results section. | + +--------+ + + + | ECG 12 LEAD | Routin | 05/04/2018 | | Results for this | | | e | 3:04 PM | | procedure are in the | | | | PDT | | results section. | + +--------+ + + + | POC GLUCOSE | Routin | 05/04/2018 | | Results for this | | | e | 3:01 PM | | procedure are in the | | | | PDT | | results section. | + +--------+ + + + | TROPONIN I | Routin | 05/04/2018 | | Results for this | | | e | 2:58 PM | | procedure are in the | | | | PDT | | results section. | + +--------+ + + + | POC GLUCOSE | Routin | 05/04/2018 | | Results for this | | | e | 2:32 PM | | procedure are in the | | | | PDT | | results section. | + +--------+ + + + | POC GLUCOSE | Routin | 05/04/2018 | | Results for this | | | e | 2:10 PM | | procedure are in the | | | | PDT | | results section. | + +--------+ + + + | POC GLUCOSE | Routin | 05/04/2018 | | Results for this | | | e | 1:54 PM | | procedure are in the | | | | PDT | | results section. | + +--------+ + + + | POC GLUCOSE | Routin | 05/04/2018 | | Results for this | | | e | 1:28 PM | | procedure are in the | | | | PDT | | results section. | + +--------+ + + + | MRSA NAAT | Routin | 05/04/2018 | | Results for this | | | e | 1:23 PM | | procedure are in the | | | | PDT | | results section. | + +--------+ + + + | DRUGS OF ABUSE | Routin | 05/04/2018 | | Results for this | | SCREEN, URINE (H) | e | 1:06 PM | | procedure are in the | | | | PDT | | results section. | + +--------+ + + + | URINALYSIS, REFLEX | Routin | 05/04/2018 | | Results for this | | MICROSCOPIC AND/OR | e | 1:06 PM | | procedure are in the | | CULTURE | | PDT | | results section. | + +--------+ + + + | CULTURE, URINE | Routin | 05/04/2018 | | Results for this | | | e | 1:06 PM | | procedure are in the | | | | PDT | | results section. | + +--------+ + + + | POC GLUCOSE | Routin | 05/04/2018 | | Results for this | | | e | 12:44 PM | | procedure are in the | | | | PDT | | results section. | + +--------+ + + + | EXTERNAL LAB: CBC | Routin | 05/04/2018 | | Results for this | | | e | 12:09 PM | | procedure are in the | | | | PDT | | results section. | + +--------+ + + + | PROCALCITONIN, SERUM | Routin | 05/04/2018 | | Results for this | | | e | 12:09 PM | | procedure are in the | | | | PDT | | results section. | + +--------+ + + + | PROTIME INR | Routin | 05/04/2018 | | Results for this | | | e | 12:09 PM | | procedure are in the | | | | PDT | | results section. | + +--------+ + + + | PHOSPHORUS | Routin | 05/04/2018 | | Results for this | | | e | 12:09 PM | | procedure are in the | | | | PDT | | results section. | + +--------+ + + + | MAGNESIUM | Routin | 05/04/2018 | | Results for this | | | e | 12:09 PM | | procedure are in the | | | | PDT | | results section. | + +--------+ + + + | COMPREHENSIVE | Routin | 05/04/2018 | | Results for this | | METABOLIC PANEL | e | 12:09 PM | | procedure are in the | | | | PDT | | results section. | + +--------+ + + + | POC GLUCOSE | Routin | 05/04/2018 | | Results for this | | | e | 12:06 PM | | procedure are in the | | | | PDT | | results section. | + +--------+ + + + | POC GLUCOSE | Routin | 05/04/2018 | | Results for this | | | e | 11:50 AM | | procedure are in the | | | | PDT | | results section. | + +--------+ + + + | POC GLUCOSE | Routin | 05/04/2018 | | Results for this | | | e | 11:17 AM | | procedure are in the | | | | PDT | | results section. | + +--------+ + + + | POC GLUCOSE | Routin | 05/04/2018 | | Results for this | | | e | 10:54 AM | | procedure are in the | | | | PDT | | results section. | + +--------+ + + + | POC GLUCOSE | Routin | 05/04/2018 | | Results for this | | | e | 10:27 AM | | procedure are in the | | | | PDT | | results section. | + +--------+ + + + documented in this encounter Results POC Glucose (06/22/2018 5:36 AM PDT) + + + + + + | Component | Value | Ref Range | Performed | Pathologist | | | | | At | Signature | + + + + + + | Glucose, | 175 (H)Comment: Testing | 65 - 99 mg/dL | EXTERNAL | | | Fingerstick | performed at [facility];[address] | | LAB | | | | [address];[place], [place] | | | | | | [address] | | | | + + + + + + + + | Specimen | + + | | + + + +---------+ + + | Performing | Address | City/State/Zipcode | Phone Number | | Organization | | | | + +---------+ + + | EXTERNAL LAB | | | | + +---------+ + + Protime INR (06/22/2018 5:30 AM PDT) + + + + + + | Component | Value | Ref Range | Performed | Pathologist | | | | | At | Signature | + + + + + + | INR | 1.8Comment: REFERENCE | | EXTERNAL | | | | RANGE:0.9 - 1.2 | | LAB | | | | NON-ANTICOAGULATED2.0 | | | | | | - 3.0 ALL OTHER | | | | | | THERAPEUTIC | | | | | | INDICATIONS2.5 - 3.5 | | | | | | MECHANICAL HEART VALVES, | | | | | | RECURRENT OR SYSTEMIC | | | | | | EMBOLISMTesting | | | | | | performed at [facility];[address] | | | | | | [address] [facility];[place], [place] | | | | | | [address] | | | | + + + + + + + + | Specimen | + + | Blood specimen | | (specimen) | + + + +---------+ + + | Performing | Address | City/State/Zipcode | Phone Number | | Organization | | | | + +---------+ + + | EXTERNAL LAB | | | | + +---------+ + + Magnesium (06/22/2018 5:30 AM PDT) + + + + + + | Component | Value | Ref Range | Performed | Pathologist | | | | | At | Signature | + + + + + + | Magnesium | 1.9Comment: Testing | 1.7 - 2.4 mg/dL | EXTERNAL | | | | performed at [facility];[address] | | LAB | | | | [address];[place] | | | | | | [address] | | | | + + + + + + + + | Specimen | + + | | + + + +---------+ + + | Performing | Address | City/State/Zipcode | Phone Number | | Organization | | | | + +---------+ + + | EXTERNAL LAB | | | | + +---------+ + + Basic Metabolic Panel (06/22/2018 5:30 AM PDT) + + + + + + | Component | Value | Ref Range | Performed | Pathologist | | | | | At | Signature | + + + + + + | Na | 139 | 135 - 145 | EXTERNAL | [...] + + + | Anion Gap | 15 | 5 - 20 mmol/L | EXTERNAL | | | | | | LAB | | + + + + + + | Glucose, | 170 (H) | 65 - 99 mg/dL | EXTERNAL | | | Fasting | | | LAB | | + + + + + + | BUN | 22 | 8 - 25 mg/dL | EXTERNAL | | | | | | LAB | | + + + + + + | Creatinine | 0.9 | 0.70 - 1.30 | EXTERNAL | | | | | mg/dL | LAB | | + + + + + + | BUN/Creatin | 24 | | EXTERNAL | | | ine Ratio | | | LAB | | + + + + + + | Calcium | 8.2 (L) | 8.5 - 10.5 | EXTERNAL | | | | | mg/dL | LAB | | + + + + + + | Estimated | >60Comment: GFR <60: | mL/min/1.73m2 | EXTERNAL | | | GFR | CHRONIC KIDNEY DISEASE, | | LAB | | | | IF FOUND OVER A 3 MONTH | | | | | | PERIOD.GFR <15: KIDNEY | | | | | | FAILURE.FOR | | | | | | AMERICANS, MULTIPLY THE | | | | | | CALCULATED GFR BY | | | | | | 1.210.This eGFR is | | | | | | calculated using the | | | | | | [facility] traceable | | | | | | equation.Testing | | | | | | performed at [facility], [address] | | | | | [facility], | | | | | | [place] [address] | | | | + + + + + + + + | Specimen | + + | Blood specimen | | (specimen) | + + + +---------+ + + | Performing | Address | City/State/Zipcode | Phone Number | | Organization | | | | + +---------+ + + | EXTERNAL LAB | | | | + +---------+ + + POC Glucose (06/21/2018 9:55 PM PDT) + + + + + + | Component | Value | Ref Range | Performed | Pathologist | | | | | At | Signature | + + + + + + | Glucose, | 155 (H)Comment: Testing | 65 - 99 mg/dL | EXTERNAL | | | Fingerstick | performed at [facility];[address] | | LAB | | | | [address];[place] | | | | | | [address] | | | | + + + + + + + + | Specimen | + + | | + + + +---------+ + + | Performing | Address | City/State/Zipcode | Phone Number | | Organization | | | | + +---------+ + + | EXTERNAL LAB | | | | + +---------+ + + POC Glucose (06/21/2018 4:55 PM PDT) + + + + + + | Component | Value | Ref Range | Performed | Pathologist | | | | | At | Signature | + + + + + + | Glucose, | 127 (H)Comment: Testing | 65 - 99 mg/dL | EXTERNAL | | | Fingerstick | performed at [facility];[address] | | LAB | | | | [address];[place], [place] | | | | | | [address] | | | | + + + + + + + + | Specimen | + + | | + + + +---------+ + + | Performing | Address | City/State/Zipcode | Phone Number | | Organization | | | | + +---------+ + + | EXTERNAL LAB | | | | + +---------+ + + POC Glucose (06/21/2018 11:49 AM PDT) + + + + + + | Component | Value | Ref Range | Performed | Pathologist | | | | | At | Signature | + + + + + + | Glucose, | 123 (H)Comment: Testing | 65 - 99 mg/dL | EXTERNAL | | | Fingerstick | performed at [facility];[address] | | LAB | | | | [address];[place], [place] | | | | | | [address] | | | | + + + + + + + + | Specimen | + + | | + + + +---------+ + + | Performing | Address | City/State/Zipcode | Phone Number | | Organization | | | | + +---------+ + + | EXTERNAL LAB | | | | + +---------+ + + POC Glucose (06/21/2018 5:47 AM PDT) + + + + + + | Component | Value | Ref Range | Performed | Pathologist | | | | | At | Signature | + + + + + + | Glucose, | 128 (H)Comment: Testing | 65 - 99 mg/dL | EXTERNAL | | | Fingerstick | performed at [facility];[address] | | LAB | | | | [address];[place] | | | | | | [address] | | | | + + + + + + + + | Specimen | + + | | + + + +---------+ + + | Performing | Address | City/State/Zipcode | Phone Number | | Organization | | | | + +---------+ + + | EXTERNAL LAB | | | | + +---------+ + + Protime INR (06/21/2018 5:15 AM PDT) + + + + + + | Component | Value | Ref Range | Performed | Pathologist | | | | | At | Signature | + + + + + + | INR | 2.3Comment: REFERENCE | | EXTERNAL | | | | RANGE:0.9 - 1.2 | | LAB | | | | NON-ANTICOAGULATED2.0 | | | | | | - 3.0 ALL OTHER | | | | | | THERAPEUTIC | | | | | | INDICATIONS2.5 - 3.5 | | | | | | MECHANICAL HEART VALVES, | | | | | | RECURRENT OR SYSTEMIC | | | | | | EMBOLISMTesting | | | | | | performed at [facility] | | | | | | [facility];[place], [place] | | | | | | [address] | | | | + + + [...] + +---------+ + + External Lab: CBC (06/21/2018 5:15 AM PDT) + + +---- + + + | Component | Value | Ref Range | Performed | Pathologist | | | | | At | Signature | + + +---- + + + | WBC | 6.00 | 3.8 0 - 11.00 | EXTERNAL | | | | | K/u L | LAB | | + + +---- + + + | Non- | 4.66 | 4.2 0 - 5.70 | EXTERNAL | | | Red Blood | | M/u L | LAB | | | Cells | | | | | | Counted | | | | | + + +---- + + + | Hemoglobin | 9.5 (L) | 13. 2 - 17.0 | EXTERNAL | | | | | g/d L | LAB | | + + +---- + + + | Hematocrit, | 30.4 (L) | 39. 0 - 50.0 % | EXTERNAL | | | POC | | | LAB | | + + +---- + + + | MCV | 65.1 (L) | 80. 0 - 100.0 fl | EXTERNAL | | | | | | LAB | | + + +---- + + + | MCH | 20.4 (L) | 27. 0 - 34.0 pg | EXTERNAL | | | | | | LAB | | + + +---- + + + | MCHC | 31.3 (L) | 32. 0 - 35.5 | EXTERNAL | | | | | g/d L | LAB | | + + +---- + + + | RDW-CV | 47.3 | 37 - 53 fl | EXTERNAL | | | | | | LAB | | + + +---- + + + | Platelet | 198 | 150 - 400 K/uL | EXTERNAL | | | Count | | | LAB | | | Plasma | | | | | + + +---- + + + | MPV | 8.9 | fl | EXTERNAL | | | | | | LAB | | + + +---- + + + | Differentia | AUTOMATED | | EXTERNAL | | | l Type | | | LAB | | + + +---- + + + | % Segmented | 62.41 | % | EXTERNAL | | | | | | LAB | | | Neutrophils | | | | | + + +---- + + + | % | 21.21 | % | EXTERNAL | | | Lymphocytes | | | LAB | | + + +---- + + + | % Monocytes | 8.63 | % | EXTERNAL | | | | | | LAB | | + + +---- + + + | % | 6.74 | % | EXTERNAL | | | Eosinophils | | | LAB | | + + +---- + + + | % Basophils | 1.01 | % | EXTERNAL | | | | | | LAB | | + + +---- + + + | Absolute | 3.74 | 1.9 0 - 7.40 | EXTERNAL | | | Segmented | | K/u L | LAB | | | Neutrophils | | | | | + + +---- + + + | Absolute | 1.27 | 1.0 0 - 3.90 | EXTERNAL | | | Lymphocytes | | K/u L | LAB | | + + +---- + + + | Absolute | 0.52 | 0.0 0 - 0.80 | EXTERNAL | | | Monocytes | | K/u L | LAB | | + + +---- + + + | Absolute | 0.40 | 0.0 0 - 0.50 | EXTERNAL | | | Eosinophils | | K/u L | LAB | | + + +---- + + + | Absolute | 0.06 | 0.0 0 - 0.10 | EXTERNAL | | | Basophils | | K/u L | LAB | | + + +---- + + + | RBC | 1+Comment: | | EXTERNAL | | | Morphology | ANISO3+MICRO2+HYPONORMAL | | LAB | | | | PLT MORPHTesting | | | | | | performed at [facility], [address] | [address] | [facility], | | | | | | [place] [address] | | | | | |HYPO | | | | | |NORMAL PLT MORPH | | | | | |Testing performed at [facility], [address] [facility], [place] [address] | | | | | | | | | | + + +---- + + + + + | Specimen | + + | Blood specimen | | (specimen) | + + + +---------+ + + | Performing | Address | City/State/Zipcode | Phone Number | | Organization | | | | + +---------+ + + | EXTERNAL LAB | | | | + +---------+ + + POC Glucose (06/20/2018 9:21 PM PDT) + + + + + + | Component | Value | Ref Range | Performed | Pathologist | | | | | At | Signature | + + + + + + | Glucose, | 159 (H)Comment: Testing | 65 - 99 mg/dL | EXTERNAL | | | Fingerstick | performed at [facility];[address] | | LAB | | | | [address];[place] | | | | | | [address] | | | | + + + + + + + + | Specimen | + + | | + + + +---------+ + + | Performing | Address | City/State/Zipcode | Phone Number | | Organization | | | | + +---------+ + + | EXTERNAL LAB | | | | + +---------+ + + POC Glucose (06/20/2018 3:53 PM PDT) + + + + + + | Component | Value | Ref Range | Performed | Pathologist | | | | | At | Signature | + + + + + + | Glucose, | 113 (H)Comment: Testing | 65 - 99 mg/dL | EXTERNAL | | | Fingerstick | performed at [facility];[address] | | LAB | | | | [address];[place] | | | | | | [address] | | | | + + + + + + + + | Specimen | + + | | + + + +---------+ + + | Performing | Address | City/State/Zipcode | Phone Number | | Organization | | | | + +---------+ + + | EXTERNAL LAB | | | | + +---------+ + + POC Glucose (06/20/2018 11:00 AM PDT) + + + + + + | Component | Value | Ref Range | Performed | Pathologist | | | | | At | Signature | + + + + + + | Glucose, | 176 (H)Comment: Testing | 65 - 99 mg/dL | EXTERNAL | | | Fingerstick | performed at [facility];[address] | | LAB | | | | [address];[place] | | | | | | [address] | | | | + + + + + + + + | Specimen | + + | | + + + +---------+ + + | Performing | Address | City/State/Zipcode | Phone Number | | Organization | | | | + +---------+ + + | EXTERNAL LAB | | | | + +---------+ + + POC Glucose (06/20/2018 5:54 AM PDT) + + + + + + | Component | Value | Ref Range | Performed | Pathologist | | | | | At | Signature | + + + + + + | Glucose, | 140 (H)Comment: Testing | 65 - 99 mg/dL | EXTERNAL | | | Fingerstick | performed at [facility];[address] | | LAB | | | | [address];[place] | | | | | | [address] | | | | + + + + + + + + | Specimen | + + | | + + + +---------+ + + | Performing | Address | City/State/Zipcode | Phone Number | | Organization | | | | + +---------+ + + | EXTERNAL LAB | | | | + +---------+ + + Protime INR (06/20/2018 4:52 AM PDT) + + + + + + | Component | Value | Ref Range | Performed | Pathologist | | | | | At | Signature | + + + + + + | INR | 3.9Comment: REFERENCE | | EXTERNAL | | | | RANGE:0.9 - 1.2 | | LAB | | | | NON-ANTICOAGULATED2.0 | | | | | | - 3.0 ALL OTHER | | | | | | THERAPEUTIC | | | | | | INDICATIONS2.5 - 3.5 | | | | | | MECHANICAL HEART VALVES, | | | | | | RECURRENT OR SYSTEMIC | | | | | | EMBOLISMTesting | | | | | | performed at [facility];[address] | | | | | | [address] [facility];[place], [place] | | | | | | [address] | | | | + + + + + + + + | Specimen | + + | Blood specimen | | (specimen) | + + + +---------+ + + | Performing | Address | City/State/Zipcode | Phone Number | | Organization | | | | + +---------+ + + | EXTERNAL LAB | | | | + +---------+ + + POC Glucose (06/19/2018 9:50 PM PDT) + + + + + + | Component | Value | Ref Range | Performed | Pathologist | | | | | At | Signature | + + + + + + | Glucose, | 133 (H)Comment: Testing | 65 - 99 mg/dL | EXTERNAL | | | Fingerstick | performed at [facility];[address] | | LAB | | | | [address];[place] | | | | | | [address] | | | | + + + + + + + + | Specimen | + + | | + + + +---------+ + + | Performing | Address | City/State/Zipcode | Phone Number | | Organization | | | | + +---------+ + + | EXTERNAL LAB | | | | + +---------+ + + POC Glucose (06/19/2018 4:09 PM PDT) + + + + + + | Component | Value | Ref Range | Performed | Pathologist | | | | | At | Signature | + + + + + + | Glucose, | 108 (H)Comment: Testing | 65 - 99 mg/dL | EXTERNAL | | | Fingerstick | performed at [facility];[address] | | LAB | | | | [address];[place], [place] | | | | | | [address] | | | | + + + + + + + + | Specimen | + + | | + + + +---------+ + + | Performing | Address | City/State/Zipcode | Phone Number | | Organization | | | | + +---------+ + + | EXTERNAL LAB | | | | + +---------+ + + POC Glucose (06/19/2018 11:20 AM PDT) + + + + + + | Component | Value | Ref Range | Performed | Pathologist | | | | | At | Signature | + + + + + + | Glucose, | 142 (H)Comment: Testing | 65 - 99 mg/dL | EXTERNAL | | | Fingerstick | performed at [facility];[address] | | LAB | | | | [address];[place] | | | | | | [address] | | | | + + + + + + + + | Specimen | + + | | + + + +---------+ + + | Performing | Address | City/State/Zipcode | Phone Number | | Organization | | | | + +---------+ + + | EXTERNAL LAB | | | | + +---------+ + + POC Glucose (06/19/2018 5:39 AM PDT) + + + + + + | Component | Value | Ref Range | Performed | Pathologist | | | | | At | Signature | + + + + + + | Glucose, | 129 (H)Comment: Testing | 65 - 99 mg/dL | EXTERNAL | | | Fingerstick | performed at [facility];[address] | | LAB | | | | [address];[place], [place] | | | | | | [address] | | | | + + + + + + + + | Specimen | + + | | + + + +---------+ + + | Performing | Address | City/State/Zipcode | Phone Number | | Organization | | | | + +---------+ + + | EXTERNAL LAB | | | | + +---------+ + + Protime INR (06/19/2018 5:04 AM PDT) + + + + + + | Component | Value | Ref Range | Performed | Pathologist | | | | | At | Signature | + + + + + + | INR | 3.9Comment: REFERENCE | | EXTERNAL | | | | RANGE:0.9 - 1.2 | | LAB | | | | NON-ANTICOAGULATED2.0 | | | | | | - 3.0 ALL OTHER | | | | | | THERAPEUTIC | | | | | | INDICATIONS2.5 - 3.5 | | | | | | MECHANICAL HEART VALVES, | | | | | | RECURRENT OR SYSTEMIC | | | | | | EMBOLISMTesting | | | | | | performed at [facility];[address] | | | | | | [address];[place], [place] | | | | | | [address] | | | | + + + + + + + + | Specimen | + + | Blood specimen | | (specimen) | + + + +---------+ + + | Performing | Address | City/State/Zipcode | Phone Number | | Organization | | | | + +---------+ + + | EXTERNAL LAB | | | | + +---------+ + + Magnesium (06/19/2018 5:04 AM PDT) + + + + + + | Component | Value | Ref Range | Performed | Pathologist | | | | | At | Signature | + + + + + + | Magnesium | 1.9Comment: Testing | 1.7 - 2.4 mg/dL | EXTERNAL | | | | performed at [facility];[address] | | LAB | | | | [address];[place], [place] | | | | | | [address] | | | | + + + + + + + + | Specimen | + + | Blood specimen | | (specimen) | + + + +---------+ + + | Performing | Address | City/State/Zipcode | Phone Number | | Organization | | | | + +---------+ + + | EXTERNAL LAB | | | | + +---------+ + + Basic Metabolic Panel (06/19/2018 5:04 AM PDT) + + + + + + | Component | Value | Ref Range | Performed | Pathologist | | | | | At | Signature | + + + + + + | Na | 141 | 135 - 145 | EXTERNAL | | | | | mmol/L | LAB | | + + + + + + | K | 4.3 | 3.5 - 4.9 | EXTERNAL | | | | | mmol/L | LAB | | + + + + + + | Cl | 105 | 99 - 109 mmol/L | EXTERNAL | | | | | | LAB | | + + + + + + | CO2 | 28 | 23 - 32 mmol/L | EXTERNAL | | | | | | LAB | | + + + + + + | Anion Gap | 11 | 5 - 20 mmol/L | EXTERNAL | | | | | | LAB | | + + + + + + | Glucose, | 122 (H) | 65 - 99 mg/dL | EXTERNAL | | | Fasting | | | LAB | | + + + + + + | BUN | 23 | 8 - 25 mg/dL | EXTERNAL | | | | | | LAB | | + + + + + + | Creatinine | 0.95 | 0.70 - 1.30 | EXTERNAL | | | | | mg/dL | LAB | | + + + + + + | BUN/Creatin | 24 | | EXTERNAL | | | ine Ratio | | | LAB | | + + + + + + | Calcium | 8.1 (L) | 8.5 - 10.5 | EXTERNAL | | | | | mg/dL | LAB | | + + + + + + | Estimated | >60Comment: GFR <60: | mL/min/1.73m2 | EXTERNAL | | | GFR | CHRONIC KIDNEY DISEASE, | | LAB | | | | IF FOUND OVER A 3 MONTH | | | | | | PERIOD.GFR <15: KIDNEY | | | | | | FAILURE.FOR | | | | | | AMERICANS, MULTIPLY THE | | | | | | CALCULATED GFR BY | | | | | | 1.210.This eGFR is | | | | | | calculated using the | | | | | | MDRD IDMS traceable | | | | | | equation.Testing | | | | | | performed at [facility];[id number] | [address];[place], [place] | | | | | | [id number] | | | | + + + + + + + + | Specimen | + + | Blood specimen | | (specimen) | + + + +---------+ + + | Performing | Address | City/State/Zipcode | Phone Number | | Organization | | | | + +---------+ + + | EXTERNAL LAB | | | | + +---------+ + + POC Glucose (06/18/2018 9:21 PM PDT) + + + + + + | Component | Value | Ref Range | Performed | Pathologist | | | | | At | Signature | + + + + + + | Glucose, | 150 (H)Comment: Testing | 65 - 99 mg/dL | EXTERNAL | | | Fingerstick | performed at [facility];[address] | | LAB | | | | [address];[place] | | | | | | [address] | | | | + + + + + + + + | Specimen | + + | | + + + +---------+ + + | Performing | Address | City/State/Zipcode | Phone Number | | Organization | | | | + +---------+ + + | EXTERNAL LAB | | | | + +---------+ + + POC Glucose (06/18/2018 4:46 PM PDT) + + + + + + | Component | Value | Ref Range | Performed | Pathologist | | | | | At | Signature | + + + + + + | Glucose, | 131 (H)Comment: Testing | 65 - 99 mg/dL | EXTERNAL | | | Fingerstick | performed at [facility];[address] | | LAB | | | | [address];[place], [place] | | | | | | [address] | | | | + + + + + + + + | Specimen | + + | | + + + +---------+ + + | Performing | Address | City/State/Zipcode | Phone Number | | Organization | | | | + +---------+ + + | EXTERNAL LAB | | | | + +---------+ + + POC Glucose (06/18/2018 11:16 AM PDT) + + + + + + | Component | Value | Ref Range | Performed | Pathologist | | | | | At | Signature | + + + + + + | Glucose, | 159 (H)Comment: Testing | 65 - 99 mg/dL | EXTERNAL | | | Fingerstick | performed at [facility];[address] | | LAB | | | | [address]azos;[place] | | | | | | [address] | | | | + + + + + + + + | Specimen | + + | | + + + +---------+ + + | Performing | Address | City/State/Zipcode | Phone Number | | Organization | | | | + +---------+ + + | EXTERNAL LAB | | | | + +---------+ + + POC Glucose (06/18/2018 5:41 AM PDT) + + + + + + | Component | Value | Ref Range | Performed | Pathologist | | | | | At | Signature | + + + + + + | Glucose, | 127 (H)Comment: Testing | 65 - 99 mg/dL | EXTERNAL | | | Fingerstick | performed at [facility];[address] | | LAB | | | | [address];[place], [place] | | | | | | [address] | | | | + + + + + + + + | Specimen | + + | | + + + +---------+ + + | Performing | Address | City/State/Zipcode | Phone Number | | Organization | | | | + +---------+ + + | EXTERNAL LAB | | | | + +---------+ + + Protime INR (06/18/2018 5:06 AM PDT) + + + + + + | Component | Value | Ref Range | Performed | Pathologist | | | | | At | Signature | + + + + + + | INR | 2.5Comment: REFERENCE | | EXTERNAL | | | | RANGE:0.9 - 1.2 | | LAB | | | | NON-ANTICOAGULATED2.0 | | | | | | - 3.0 ALL OTHER | | | | | | THERAPEUTIC | | | | | | INDICATIONS2.5 - 3.5 | | | | | | MECHANICAL HEART VALVES, | | | | | | RECURRENT OR SYSTEMIC | | | | | | EMBOLISMTesting | | | | | | performed at [facility];[address] | | | | | | [facility];[place], [place] | | | | | | [address] | | | | + + + [...] + +---------+ + + External Lab: CBC (06/18/2018 5:06 AM PDT) + + +---- + + + | Component | Value | Ref Range | Performed | Pathologist | | | | | At | Signature | + + +---- + + + | WBC | 5.69 | 3.8 0 - 11.00 | EXTERNAL | | | | | K/u L | LAB | | + + +---- + + + | Non- | 4.47 | 4.2 0 - 5.70 | EXTERNAL | | | Red Blood | | M/u L | LAB | | | Cells | | | | | | Counted | | | | | + + +---- + + + | Hemoglobin | 9.2 (L) | 13. 2 - 17.0 | EXTERNAL | | | | | g/d L | LAB | | + + +---- + + + | Hematocrit, | 29.6 (L) | 39. 0 - 50.0 % | EXTERNAL | | | POC | | | LAB | | + + +---- + + + | MCV | 66.3 (L) | 80. 0 - 100.0 fl | EXTERNAL | | | | | | LAB | | + + +---- + + + | MCH | 20.5 (L) | 27. 0 - 34.0 pg | EXTERNAL | | | | | | LAB | | + + +---- + + + | MCHC | 31.0 (L) | 32. 0 - 35.5 | EXTERNAL | | | | | g/d L | LAB | | + + +---- + + + | RDW-CV | 47.7 | 37 - 53 fl | EXTERNAL | | | | | | LAB | | + + +---- + + + | Platelet | 196 | 150 - 400 K/uL | EXTERNAL | | | Count | | | LAB | | | Plasma | | | | | + + +---- + + + | MPV | 9.0 | fl | EXTERNAL | | | | | | LAB | | + + +---- + + + | Differentia | AUTOMATED | | EXTERNAL | | | l Type | | | LAB | | + + +---- + + + | % Segmented | 56.71 | % | EXTERNAL | | | | | | LAB | | | Neutrophils | | | | | + + +---- + + + | % | 25.57 | % | EXTERNAL | | | Lymphocytes | | | LAB | | + + +---- + + + | % Monocytes | 8.68 | % | EXTERNAL | | | | | | LAB | | + + +---- + + + | % | 7.53 | % | EXTERNAL | | | Eosinophils | | | LAB | | + + +---- + + + | % Basophils | 1.51 | % | EXTERNAL | | | | | | LAB | | + + +---- + + + | Absolute | 3.23 | 1.9 0 - 7.40 | EXTERNAL | | | Segmented | | K/u L | LAB | | | Neutrophils | | | | | + + +---- + + + | Absolute | 1.45 | 1.0 0 - 3.90 | EXTERNAL | | | Lymphocytes | | K/u L | LAB | | + + +---- + + + | Absolute | 0.49 | 0.0 0 - 0.80 | EXTERNAL | | | Monocytes | | K/u L | LAB | | + + +---- + + + | Absolute | 0.43 | 0.0 0 - 0.50 | EXTERNAL | | | Eosinophils | | K/u L | LAB | | + + +---- + + + | Absolute | 0.09 | 0.0 0 - 0.10 | EXTERNAL | | | Basophils | | K/u L | LAB | | + + +---- + + + | RBC | 3+Comment: | | EXTERNAL | | | Morphology | MICRO1+HYPO1+ANISONORMAL | | LAB | | | | PLT MORPHTesting | | | | | | performed at [facility], [facility] [address] | | | | | | [facility], | | | | | | [place] [address] | | | | | |ANISO | | | | | |NORMAL PLT MORPH | | | | | |Testing performed at [facility], [facility] [place] [address] | | | | | | | | | | + + +---- + + + + + | Specimen | + + | Blood specimen | | (specimen) | + + + +---------+ + + | Performing | Address | City/State/Zipcode | Phone Number | | Organization | | | | + +---------+ + + | EXTERNAL LAB | | | | + +---------+ + + Potassium (06/18/2018 5:06 AM PDT) + + + + + + | Component | Value | Ref Range | Performed | Pathologist | | | | | At | Signature | + + + + + + | K | 4.4Comment: Testing | 3.5 - 4.9 | EXTERNAL | | | | performed at [facility], [address] | mmol/L | LAB | | | | [address], | | | | | | [place] [address] | | | | + + + + + + + + | Specimen | + + | Blood specimen | | (specimen) | + + + +---------+ + + | Performing | Address | City/State/Zipcode | Phone Number | | Organization | | | | + +---------+ + + | EXTERNAL LAB | | | | + +---------+ + + Magnesium (06/18/2018 5:06 AM PDT) + + + + + + | Component | Value | Ref Range | Performed | Pathologist | | | | | At | Signature | + + + + + + | Magnesium | 1.9Comment: Testing | 1.7 - 2.4 mg/dL | EXTERNAL | | | | performed at [facility], [address] | | LAB | | | | [facility], | | | | | | [place] [address] | | | | + + + + + + + + | Specimen | + + | Blood specimen | | (specimen) | + + + +---------+ + + | Performing | Address | City/State/Zipcode | Phone Number | | Organization | | | | + +---------+ + + | EXTERNAL LAB | | | | + +---------+ + + POC Glucose (06/17/2018 9:19 PM PDT) + + + + + + | Component | Value | Ref Range | Performed | Pathologist | | | | | At | Signature | + + + + + + | Glucose, | 142 (H)Comment: Testing | 65 - 99 mg/dL | EXTERNAL | | | Fingerstick | performed at [facility];[address] | | LAB | | | | [address];[place] | | | | | | [address] | | | | + + + + + + + + | Specimen | + + | | + + + +---------+ + + | Performing | Address | City/State/Zipcode | Phone Number | | Organization | | | | + +---------+ + + | EXTERNAL LAB | | | | + +---------+ + + POC Glucose (06/17/2018 3:48 PM PDT) + + + + + + | Component | Value | Ref Range | Performed | Pathologist | | | | | At | Signature | + + + + + + | Glucose, | 127 (H)Comment: Testing | 65 - 99 mg/dL | EXTERNAL | | | Fingerstick | performed at [facility];[address] | | LAB | | | | [address];[place], [place] | | | | | | [address] | | | | + + + + + + + + | Specimen | + + | | + + + +---------+ + + | Performing | Address | City/State/Zipcode | Phone Number | | Organization | | | | + +---------+ + + | EXTERNAL LAB | | | | + +---------+ + + POC Glucose (06/17/2018 11:16 AM PDT) + + + + + + | Component | Value | Ref Range | Performed | Pathologist | | | | | At | Signature | + + + + + + | Glucose, | 132 (H)Comment: Testing | 65 - 99 mg/dL | EXTERNAL | | | Fingerstick | performed at [facility];[address] | | LAB | | | | [address];[place], [place] | | | | | | [address] | | | | + + + + + + + + | Specimen | + + | | + + + +---------+ + + | Performing | Address | City/State/Zipcode | Phone Number | | Organization | | | | + +---------+ + + | EXTERNAL LAB | | | | + +---------+ + + Potassium (06/17/2018 9:49 AM PDT) + + + + + + | Component | Value | Ref Range | Performed | Pathologist | | | | | At | Signature | + + + + + + | K | 4.2Comment: Testing | 3.5 - 4.9 | EXTERNAL | | | | performed at [facility];[address] | mmol/L | LAB | | | | [address] [facility];[place], [place] | | | | | | [address] | | | | + + + + + + + + | Specimen | + + | Blood specimen | | (specimen) | + + + +---------+ + + | Performing | Address | City/State/Zipcode | Phone Number | | Organization | | | | + +---------+ + + | EXTERNAL LAB | | | | + +---------+ + + Magnesium (06/17/2018 9:49 AM PDT) + + + + + + | Component | Value | Ref Range | Performed | Pathologist | | | | | At | Signature | + + + + + + | Magnesium | 1.9Comment: Testing | 1.7 - 2.4 mg/dL | EXTERNAL | | | | performed at [facility];[address] | | LAB | | | | [address];[place], [place] | | | | | | [address] | | | | + + + + + + + + | Specimen | + + | Blood specimen | | (specimen) | + + + +---------+ + + | Performing | Address | City/State/Zipcode | Phone Number | | Organization | | | | + +---------+ + + | EXTERNAL LAB | | | | + +---------+ + + POC Glucose (06/17/2018 5:37 AM PDT) + + + + + + | Component | Value | Ref Range | Performed | Pathologist | | | | | At | Signature | + + + + + + | Glucose, | 129 (H)Comment: Testing | 65 - 99 mg/dL | EXTERNAL | | | Fingerstick | performed at [facility];[address] | | LAB | | | | [address];[place], [place] | | | | | | [address] | | | | + + + + + + + + | Specimen | + + | | + + + +---------+ + + | Performing | Address | City/State/Zipcode | Phone Number | | Organization | | | | + +---------+ + + | EXTERNAL LAB | | | | + +---------+ + + Protime INR (06/17/2018 5:05 AM PDT) + + + + + + | Component | Value | Ref Range | Performed | Pathologist | | | | | At | Signature | + + + + + + | INR | 1.7Comment: REFERENCE | | EXTERNAL | | | | RANGE:0.9 - 1.2 | | LAB | | | | NON-ANTICOAGULATED2.0 | | | | | | - 3.0 ALL OTHER | | | | | | THERAPEUTIC | | | | | | INDICATIONS2.5 - 3.5 | | | | | | MECHANICAL HEART VALVES, | | | | | | RECURRENT OR SYSTEMIC | | | | | | EMBOLISMTesting | | | | | | performed at [facility];[address] | | | | | | [address] [facility];[place], [place] | | | | | | [address] | | | | + + + + + + + + | Specimen | + + | Blood specimen | | (specimen) | + + + +---------+ + + | Performing | Address | City/State/Zipcode | Phone Number | | Organization | | | | + +---------+ + + | EXTERNAL LAB | | | | + +---------+ + + POC Glucose (06/16/2018 9:13 PM PDT) + + + + + + | Component | Value | Ref Range | Performed | Pathologist | | | | | At | Signature | + + + + + + | Glucose, | 143 (H)Comment: Testing | 65 - 99 mg/dL | EXTERNAL | | | Fingerstick | performed at [facility];[address] | | LAB | | | | [address]az[address];[place] | | | | | | [address] | | | | + + + + + + + + | Specimen | + + | | + + + +---------+ + + | Performing | Address | City/State/Zipcode | Phone Number | | Organization | | | | + +---------+ + + | EXTERNAL LAB | | | | + +---------+ + + POC Glucose (06/16/2018 4:46 PM PDT) + + + + + + | Component | Value | Ref Range | Performed | Pathologist | | | | | At | Signature | + + + + + + | Glucose, | 130 (H)Comment: Testing | 65 - 99 mg/dL | EXTERNAL | | | Fingerstick | performed at [facility];[address] | | LAB | | | | [address];[place] | | | | | | [address] | | | | + + + + + + + + | Specimen | + + | | + + + +---------+ + + | Performing | Address | City/State/Zipcode | Phone Number | | Organization | | | | + +---------+ + + | EXTERNAL LAB | | | | + +---------+ + + POC Glucose (06/16/2018 11:51 AM PDT) + + + + + + | Component | Value | Ref Range | Performed | Pathologist | | | | | At | Signature | + + + + + + | Glucose, | 225 (H)Comment: Testing | 65 - 99 mg/dL | EXTERNAL | | | Fingerstick | performed at [facility];[address] | | LAB | | | | [address];[place], [place] | | | | | | [address] | | | | + + + + + + + + | Specimen | + + | | + + + +---------+ + + | Performing | Address | City/State/Zipcode | Phone Number | | Organization | | | | + +---------+ + + | EXTERNAL LAB | | | | + +---------+ + + POC Glucose (06/16/2018 5:46 AM PDT) + + + + + + | Component | Value | Ref Range | Performed | Pathologist | | | | | At | Signature | + + + + + + | Glucose, | 115 (H)Comment: Testing | 65 - 99 mg/dL | EXTERNAL | | | Fingerstick | performed at [facility];[address] | | LAB | | | | [address];[place], [place] | | | | | | [address] | | | | + + + + + + + + | Specimen | + + | | + + + +---------+ + + | Performing | Address | City/State/Zipcode | Phone Number | | Organization | | | | + +---------+ + + | EXTERNAL LAB | | | | + +---------+ + + Sedimentation rate, automated (06/16/2018 5:15 AM PDT) + + + + + + | Component | Value | Ref Range | Performed | Pathologist | | | | | At | Signature | + + + + + + | Sed Rate | 56 (H)Comment: Testing | 0 - 20 mm/Hr | EXTERNAL | | | | performed at [facility], [address] | | LAB | | | | [address], | | | | | | [place] [address] | | | | + + + + + + + + | Specimen | + + | Blood specimen | | (specimen) | + + + +---------+ + + | Performing | Address | City/State/Zipcode | Phone Number | | Organization | | | | + +---------+ + + | EXTERNAL LAB | | | | + +---------+ + + Protime INR (06/16/2018 5:15 AM PDT) + + + + + + | Component | Value | Ref Range | Performed | Pathologist | | | | | At | Signature | + + + + + + | INR | 1.7Comment: REFERENCE | | EXTERNAL | | | | RANGE:0.9 - 1.2 | | LAB | | | | NON-ANTICOAGULATED2.0 | | | | | | - 3.0 ALL OTHER | | | | | | THERAPEUTIC | | | | | | INDICATIONS2.5 - 3.5 | | | | | | MECHANICAL HEART VALVES, | | | | | | RECURRENT OR SYSTEMIC | | | | | | EMBOLISMTesting | | | | | | performed at [facility];[address] | | | | | | [address];[place], [place] | | | | | | [address] | | | | + + + + + + + + | Specimen | + + | Blood specimen | | (specimen) | + + + +---------+ + + | Performing | Address | City/State/Zipcode | Phone Number | | Organization | | | | + +---------+ + + | EXTERNAL LAB | | | | + +---------+ + + C-Reactive Protein (06/16/2018 5:15 AM PDT) + + + + + + | Component | Value | Ref Range | Performed | Pathologist | | | | | At | Signature | + + + + + + | CRP | 1.1 (H)Comment: Testing | mg/dL | EXTERNAL | | | | performed at [facility], [address] | | LAB | | | | [address], | | | | | | [place] [address] | | | | + + + + + + + + | Specimen | + + | Blood specimen | | (specimen) | + + + +---------+ + + | Performing | Address | City/State/Zipcode | Phone Number | | Organization | | | | + +---------+ + + | EXTERNAL LAB | | | | + +---------+ + + Magnesium (06/16/2018 5:15 AM PDT) + + + + + + | Component | Value | Ref Range | Performed | Pathologist | | | | | At | Signature | + + + + + + | Magnesium | 2.0Comment: Testing | 1.7 - 2.4 mg/dL | EXTERNAL | | | | performed at [facility];[address] | | LAB | | | | [address];[place] | | | | | | [address] | | | | + + + + + + + + | Specimen | + + | Blood specimen | | (specimen) | + + + +---------+ + + | Performing | Address | City/State/Zipcode | Phone Number | | Organization | | | | + +---------+ + + | EXTERNAL LAB | | | | + +---------+ + + Basic Metabolic Panel (06/16/2018 5:15 AM PDT) + + + + + + | Component | Value | Ref Range | Performed | Pathologist | | | | | At | Signature | + + + + + + | Na | 139 | 135 - 145 | EXTERNAL | | | | | mmol/L | LAB | | + + + + + + | K | 4.2 | 3.5 - 4.9 | EXTERNAL | | | | | mmol/L | LAB | | + + + + + + | Cl | 104 | 99 - 109 mmol/L | EXTERNAL | | | | | | LAB | | + + + + + + | CO2 | 25 | 23 - 32 mmol/L | EXTERNAL | | | | | | LAB | | + + + + + + | Anion Gap | 14 | 5 - 20 mmol/L | EXTERNAL | | | | | | LAB | | + + + + + + | Glucose, | 106 (H) | 65 - 99 mg/dL | EXTERNAL | | | Fasting | | | LAB | | + + + + + + | BUN | 15 | 8 - 25 mg/dL | EXTERNAL | | | | | | LAB | | + + + + + + | Creatinine | 0.8 | 0.70 - 1.30 | EXTERNAL | | | | | mg/dL | LAB | | + + + + + + | BUN/Creatin | 19 | | EXTERNAL | | | ine Ratio | | | LAB | | + + + + + + | Calcium | 8.3 (L) | 8.5 - 10.5 | EXTERNAL | | | | | mg/dL | LAB | | + + + + + + | Estimated | >60Comment: GFR <60: | mL/min/1.73m2 | EXTERNAL | | | GFR | CHRONIC KIDNEY DISEASE, | | LAB | | | | IF FOUND OVER A 3 MONTH | | | | | | PERIOD.GFR <15: KIDNEY | | | | | | FAILURE.FOR | | | | | | AMERICANS, MULTIPLY THE | | | | | | CALCULATED GFR BY | | | | | | 1.210.This eGFR is | | | | | | calculated using the | | | | | | MDRD IDLA traceable | | | | | | equation.Testing | | | | | | performed at [facility], [address] | | | | | | [facility], | | | | | | [place] [address] | | | | + + + + + + + + | Specimen | + + | Blood specimen | | (specimen) | + + + +---------+ + + | Performing | Address | City/State/Zipcode | Phone Number | | Organization | | | | + +---------+ + + | EXTERNAL LAB | | | | + +---------+ + + POC Glucose (06/15/2018 9:37 PM PDT) + + + + + + | Component | Value | Ref Range | Performed | Pathologist | | | | | At | Signature | + + + + + + | Glucose, | 175 (H)Comment: Testing | 65 - 99 mg/dL | EXTERNAL | | | Fingerstick | performed at [facility];[address] | | LAB | | | | [address] [facility];[place], [place] | | | | | | [address] | | | | + + + + + + + + | Specimen | + + | | + + + +---------+ + + | Performing | Address | City/State/Zipcode | Phone Number | | Organization | | | | + +---------+ + + | EXTERNAL LAB | | | | + +---------+ + + POC Glucose (06/15/2018 3:59 PM PDT) + + + + + + | Component | Value | Ref Range | Performed | Pathologist | | | | | At | Signature | + + + + + + | Glucose, | 122 (H)Comment: Testing | 65 - 99 mg/dL | EXTERNAL | | | Fingerstick | performed at [facility];[address] | | LAB | | | | [address];[place] | | | | | | [address] | | | | + + + + + + + + | Specimen | + + | | + + + +---------+ + + | Performing | Address | City/State/Zipcode | Phone Number | | Organization | | | | + +---------+ + + | EXTERNAL LAB | | | | + +---------+ + + POC Glucose (06/15/2018 11:20 AM PDT) + + + + + + | Component | Value | Ref Range | Performed | Pathologist | | | | | At | Signature | + + + + + + | Glucose, | 140 (H)Comment: Testing | 65 - 99 mg/dL | EXTERNAL | | | Fingerstick | performed at [facility];[address] | | LAB | | | | [address];[place], [place] | | | | | | [address] | | | | + + + + + + + + | Specimen | + + | | + + + +---------+ + + | Performing | Address | City/State/Zipcode | Phone Number | | Organization | | | | + +---------+ + + | EXTERNAL LAB | | | | + +---------+ + + POC Glucose (06/15/2018 5:35 AM PDT) + + + + + + | Component | Value | Ref Range | Performed | Pathologist | | | | | At | Signature | + + + + + + | Glucose, | 111 (H)Comment: Testing | 65 - 99 mg/dL | EXTERNAL | | | Fingerstick | performed at [facility];[address] | | LAB | | | | [address];[place] | | | | | | [address] | | | | + + + + + + + + | Specimen | + + | | + + + +---------+ + + | Performing | Address | City/State/Zipcode | Phone Number | | Organization | | | | + +---------+ + + | EXTERNAL LAB | | | | + +---------+ + + Protime INR (06/15/2018 5:33 AM PDT) + + + + + + | Component | Value | Ref Range | Performed | Pathologist | | | | | At | Signature | + + + + + + | INR | 2.2Comment: REFERENCE | | EXTERNAL | | | | RANGE:0.9 - 1.2 | | LAB | | | | NON-ANTICOAGULATED2.0 | | | | | | - 3.0 ALL OTHER | | | | | | THERAPEUTIC | | | | | | INDICATIONS2.5 - 3.5 | | | | | | MECHANICAL HEART VALVES, | | | | | | RECURRENT OR SYSTEMIC | | | | | | EMBOLISMTesting | | | | | | performed at [facility] | | | | | | [address] [facility];[place], [place] | | | | | | [address] | | | | + + + [...] + +---------+ + + External Lab: CBC (06/15/2018 5:33 AM PDT) + + + + + + | Component | Value | Ref Range | Performed | Pathologist | | | | | At | Signature | + + + + + + | WBC | 5.71 | 3.80 - 11.00 | EXTERNAL | | | | | K/uL | LAB | | + + + + + + | Non- | 4.48 | 4.20 - 5.70 | EXTERNAL | | | Red Blood | | M/uL | LAB | | | Cells | | | | | | Counted | | | | | + + + + + + | Hemoglobin | 9.2 (L) | 13.2 - 17.0 | EXTERNAL | | | | | g/dL | LAB | | + + + + + + | Hematocrit, | 29.9 (L) | 39.0 - 50.0 % | EXTERNAL | | | POC | | | LAB | | + + + + + + | MCV | 66.6 (L) | 80.0 - 100.0 fl | EXTERNAL | | | | | | LAB | | + + + + + + | MCH | 20.5 (L) | 27.0 - 34.0 pg | EXTERNAL | | | | | | LAB | | + + + + + + | MCHC | 30.7 (L) | 32.0 - 35.5 | EXTERNAL | | | | | g/dL | LAB | | + + + + + + | RDW-CV | 47.7 | 37 - 53 fl | EXTERNAL | | | | | | LAB | | + + + + + + | Platelet | 219 | 150 - 400 K/uL | EXTERNAL | | | Count | | | LAB | | | Plasma | | | | | + + + + + + | MPV | 9.2 | fl | EXTERNAL | | | | | | LAB | | + + + + + + | Differentia | AUTOMATED | | EXTERNAL | | | l Type | | | LAB | | + + + + + + | % Segmented | 60.28 | % | EXTERNAL | | | | | | LAB | | | Neutrophils | | | | | + + + + + + | % | 22.15 | % | EXTERNAL | | | Lymphocytes | | | LAB | | + + + + + + | % Monocytes | 9.90 | % | EXTERNAL | | | | | | LAB | | + + + + + + | % | 6.68 | % | EXTERNAL | | | Eosinophils | | | LAB | | + + + + + + | % Basophils | 0.99 | % | EXTERNAL | | | | | | LAB | | + + + + + + | Absolute | 3.44 | 1.90 - 7.40 | EXTERNAL | | | Segmented | | K/uL | LAB | | | Neutrophils | | | | | + + + + + + | Absolute | 1.26 | 1.00 - 3.90 | EXTERNAL | | | Lymphocytes | | K/uL | LAB | | + + + + + + | Absolute | 0.57 | 0.00 - 0.80 | EXTERNAL | | | Monocytes | | K/uL | LAB | | + + + + + + | Absolute | 0.38 | 0.00 - 0.50 | EXTERNAL | | | Eosinophils | | K/uL | LAB | | + + + + + + | Absolute | 0.06 | 0.00 - 0.10 | EXTERNAL | | | Basophils | | K/uL | LAB | | + + + + + + | RBC | 1+ | | EXTERNAL | | | Morphology | Comment: | | LAB | | | | ANISO | | | | | | 4+ | | | | | | HYPO | | | | | | 3+ | | | | | | MICRO | | | | | | NORMAL PLT MORPH | | | | | | | | | | + + + + + + | Platelet | ADEQUATEComment: Testing | | EXTERNAL | | | Estimate | performed at [facility], [id number] | | | | [address], | | | | | | [place] [address] | | | | + + + + + + + + | Specimen | + + | Blood specimen | | (specimen) | + + + +---------+ + + | Performing | Address | City/State/Zipcode | Phone Number | | Organization | | | | + +---------+ + + | EXTERNAL LAB | | | | + +---------+ + + POC Glucose (06/14/2018 9:27 PM PDT) + + + + + + | Component | Value | Ref Range | Performed | Pathologist | | | | | At | Signature | + + + + + + | Glucose, | 151 (H)Comment: Testing | 65 - 99 mg/dL | EXTERNAL | | | Fingerstick | performed at [facility];[address] | | LAB | | | | [address] | | | | | | [address] | | | | + + + + + + + + | Specimen | + + | | + + + +---------+ + + | Performing | Address | City/State/Zipcode | Phone Number | | Organization | | | | + +---------+ + + | EXTERNAL LAB | | | | + +---------+ + + POC Glucose (06/14/2018 3:55 PM PDT) + + + + + + | Component | Value | Ref Range | Performed | Pathologist | | | | | At | Signature | + + + + + + | Glucose, | 102 (H)Comment: Testing | 65 - 99 mg/dL | EXTERNAL | | | Fingerstick | performed at [facility];[address] | | LAB | | | | [address];[place] | | | | | | [address] | | | | + + + + + + + + | Specimen | + + | | + + + +---------+ + + | Performing | Address | City/State/Zipcode | Phone Number | | Organization | | | | + +---------+ + + | EXTERNAL LAB | | | | + +---------+ + + POC Glucose (06/14/2018 11:18 AM PDT) + + + + + + | Component | Value | Ref Range | Performed | Pathologist | | | | | At | Signature | + + + + + + | Glucose, | 143 (H)Comment: Testing | 65 - 99 mg/dL | EXTERNAL | | | Fingerstick | performed at [facility];[address] | | LAB | | | | [address];[place] | | | | | | [address] | | | | + + + + + + + + | Specimen | + + | | + + + +---------+ + + | Performing | Address | City/State/Zipcode | Phone Number | | Organization | | | | + +---------+ + + | EXTERNAL LAB | | | | + +---------+ + + Protime INR (06/14/2018 5:51 AM PDT) + + + + + + | Component | Value | Ref Range | Performed | Pathologist | | | | | At | Signature | + + + + + + | INR | 4.0Comment: REFERENCE | | EXTERNAL | | | | RANGE:0.9 - 1.2 | | LAB | | | | NON-ANTICOAGULATED2.0 | | | | | | - 3.0 ALL OTHER | | | | | | THERAPEUTIC | | | | | | INDICATIONS2.5 - 3.5 | | | | | | MECHANICAL HEART VALVES, | | | | | | RECURRENT OR SYSTEMIC | | | | | | EMBOLISMTesting | | | | | | performed at [facility];[address] | | | | | | [facility];[place], [place] | | | | | | [address] | | | | + + + + + + + + | Specimen | + + | Blood specimen | | (specimen) | + + + +---------+ + + | Performing | Address | City/State/Zipcode | Phone Number | | Organization | | | | + +---------+ + + | EXTERNAL LAB | | | | + +---------+ + + POC Glucose (06/14/2018 5:20 AM PDT) + + + + + + | Component | Value | Ref Range | Performed | Pathologist | | | | | At | Signature | + + + + + + | Glucose, | 102 (H)Comment: Testing | 65 - 99 mg/dL | EXTERNAL | | | Fingerstick | performed at [facility];[address] | | LAB | | | | [address];[place] | | | | | | [address] | | | | + + + + + + + + | Specimen | + + | | + + + +---------+ + + | Performing | Address | City/State/Zipcode | Phone Number | | Organization | | | | + +---------+ + + | EXTERNAL LAB | | | | + +---------+ + + POC Glucose (06/13/2018 10:00 PM PDT) + + + + + + | Component | Value | Ref Range | Performed | Pathologist | | | | | At | Signature | + + + + + + | Glucose, | 198 (H)Comment: Testing | 65 - 99 mg/dL | EXTERNAL | | | Fingerstick | performed at [facility];[address] | | LAB | | | | [address];[place] | | | | | | [address] | | | | + + + + + + + + | Specimen | + + | | + + + +---------+ + + | Performing | Address | City/State/Zipcode | Phone Number | | Organization | | | | + +---------+ + + | EXTERNAL LAB | | | | + +---------+ + + POC Glucose (06/13/2018 3:39 PM PDT) + + + + + + | Component | Value | Ref Range | Performed | Pathologist | | | | | At | Signature | + + + + + + | Glucose, | 97Comment: Testing | 65 - 99 mg/dL | EXTERNAL | | | Fingerstick | performed at [facility];[address] | | LAB | | | | [address];[place] | | | | | | [address] | | | | + + + + + + + + | Specimen | + + | | + + + +---------+ + + | Performing | Address | City/State/Zipcode | Phone Number | | Organization | | | | + +---------+ + + | EXTERNAL LAB | | | | + +---------+ + + POC Glucose (06/13/2018 11:17 AM PDT) + + + + + + | Component | Value | Ref Range | Performed | Pathologist | | | | | At | Signature | + + + + + + | Glucose, | 131 (H)Comment: Testing | 65 - 99 mg/dL | EXTERNAL | | | Fingerstick | performed at [facility];[address] | | LAB | | | | [address];[place], [place] | | | | | | [address] | | | | + + + + + + + + | Specimen | + + | | + + + +---------+ + + | Performing | Address | City/State/Zipcode | Phone Number | | Organization | | | | + +---------+ + + | EXTERNAL LAB | | | | + +---------+ + + POC Glucose (06/13/2018 6:04 AM PDT) + + + + + + | Component | Value | Ref Range | Performed | Pathologist | | | | | At | Signature | + + + + + + | Glucose, | 103 (H)Comment: Testing | 65 - 99 mg/dL | EXTERNAL | | | Fingerstick | performed at [facility];[address] | | LAB | | | | [address];[place], [place] | | | | | | [address] | | | | + + + + + + + + | Specimen | + + | | + + + +---------+ + + | Performing | Address | City/State/Zipcode | Phone Number | | Organization | | | | + +---------+ + + | EXTERNAL LAB | | | | + +---------+ + + Protime INR (06/13/2018 5:33 AM PDT) + + + + + + | Component | Value | Ref Range | Performed | Pathologist | | | | | At | Signature | + + + + + + | INR | 4.0Comment: REFERENCE | | EXTERNAL | | | | RANGE:0.9 - 1.2 | | LAB | | | | NON-ANTICOAGULATED2.0 | | | | | | - 3.0 ALL OTHER | | | | | | THERAPEUTIC | | | | | | INDICATIONS2.5 - 3.5 | | | | | | MECHANICAL HEART VALVES, | | | | | | RECURRENT OR SYSTEMIC | | | | | | EMBOLISMTesting | | | | | | performed at [facility];[address] | | | | | | [address];[place] | | | | | | [address] | | | | + + + + + + + + | Specimen | + + | Blood specimen | | (specimen) | + + + +---------+ + + | Performing | Address | City/State/Zipcode | Phone Number | | Organization | | | | + +---------+ + + | EXTERNAL LAB | | | | + +---------+ + + Magnesium (06/13/2018 5:33 AM PDT) + + + + + + | Component | Value | Ref Range | Performed | Pathologist | | | | | At | Signature | + + + + + + | Magnesium | 1.9Comment: Testing | 1.7 - 2.4 mg/dL | EXTERNAL | | | | performed at [facility];[address] | | LAB | | | | [address];[place], [place] | | | | | | [address] | | | | + + + + + + + + | Specimen | + + | Blood specimen | | (specimen) | + + + +---------+ + + | Performing | Address | City/State/Zipcode | Phone Number | | Organization | | | | + +---------+ + + | EXTERNAL LAB | | | | + +---------+ + + Basic Metabolic Panel (06/13/2018 5:33 AM PDT) + + + + + + | Component | Value | Ref Range | Performed | Pathologist | | | | | At | Signature | + + + + + + | Na | 141 | 135 - 145 | EXTERNAL | | | | | mmol/L | LAB | | + + + + + + | K | 4.4 | 3.5 - 4.9 | EXTERNAL | | | | | mmol/L | LAB | | + + + + + + | Cl | 106 | 99 - 109 mmol/L | EXTERNAL | | | | | | LAB | | + + + + + + | CO2 | 28 | 23 - 32 mmol/L | EXTERNAL | | | | | | LAB | | + + + + + + | Anion Gap | 11 | 5 - 20 mmol/L | EXTERNAL | | | | | | LAB | | + + + + + + | Glucose, | 110 (H) | 65 - 99 mg/dL | EXTERNAL | | | Fasting | | | LAB | | + + + + + + | BUN | 17 | 8 - 25 mg/dL | EXTERNAL | | | | | | LAB | | + + + + + + | Creatinine | 0.79 | 0.70 - 1.30 | EXTERNAL | | | | | mg/dL | LAB | | + + + + + + | BUN/Creatin | 21 | | EXTERNAL | | | ine Ratio | | | LAB | | + + + + + + | Calcium | 8.1 (L) | 8.5 - 10.5 | EXTERNAL | | | | | mg/dL | LAB | | + + + + + + | Estimated | >60Comment: GFR <60: | mL/min/1.73m2 | EXTERNAL | | | GFR | CHRONIC KIDNEY DISEASE, | | LAB | | | | IF FOUND OVER A 3 MONTH | | | | | | PERIOD.GFR <15: KIDNEY | | | | | | FAILURE.FOR | | | | | | AMERICANS, MULTIPLY THE | | | | | | CALCULATED GFR BY | | | | | | 1.210.This eGFR is | | | | | | calculated using the | | | | | | MDRD IDMS traceable | | | | | | equation.Testing | | | | | | performed at [facility];[address] | | | | | | [facility];[place], [place] | | | | | | [address] | | | | + + + + + + + + | Specimen | + + | Blood specimen | | (specimen) | + + + +---------+ + + | Performing | Address | City/State/Zipcode | Phone Number | | Organization | | | | + +---------+ + + | EXTERNAL LAB | | | | + +---------+ + + POC Glucose (06/12/2018 9:32 PM PDT) + + + + + + | Component | Value | Ref Range | Performed | Pathologist | | | | | At | Signature | + + + + + + | Glucose, | 180 (H)Comment: Testing | 65 - 99 mg/dL | EXTERNAL | | | Fingerstick | performed at [facility];[address] | | LAB | | | | [address];[place] | | | | | | [address] | | | | + + + + + + + + | Specimen | + + | | + + + +---------+ + + | Performing | Address | City/State/Zipcode | Phone Number | | Organization | | | | + +---------+ + + | EXTERNAL LAB | | | | + +---------+ + + POC Glucose (06/12/2018 4:58 PM PDT) + + + + + + | Component | Value | Ref Range | Performed | Pathologist | | | | | At | Signature | + + + + + + | Glucose, | 120 (H)Comment: Testing | 65 - 99 mg/dL | EXTERNAL | | | Fingerstick | performed at [facility];[address] | | LAB | | | | [address];[place] | | | | | | [address] | | | | + + + + + + + + | Specimen | + + | | + + + +---------+ + + | Performing | Address | City/State/Zipcode | Phone Number | | Organization | | | | + +---------+ + + | EXTERNAL LAB | | | | + +---------+ + + POC Glucose (06/12/2018 11:25 AM PDT) + + + + + + | Component | Value | Ref Range | Performed | Pathologist | | | | | At | Signature | + + + + + + | Glucose, | 128 (H)Comment: Testing | 65 - 99 mg/dL | EXTERNAL | | | Fingerstick | performed at [facility];[address] | | LAB | | | | [address];[place], [place] | | | | | | [address] | | | | + + + + + + + + | Specimen | + + | | + + + +---------+ + + | Performing | Address | City/State/Zipcode | Phone Number | | Organization | | | | + +---------+ + + | EXTERNAL LAB | | | | + +---------+ + + POC Glucose (06/12/2018 6:07 AM PDT) + + + + + + | Component | Value | Ref Range | Performed | Pathologist | | | | | At | Signature | + + + + + + | Glucose, | 116 (H)Comment: Testing | 65 - 99 mg/dL | EXTERNAL | | | Fingerstick | performed at [facility];[address] | | LAB | | | | [address];[place], [place] | | | | | | [address] | | | | + + + + + + + + | Specimen | + + | | + + + +---------+ + + | Performing | Address | City/State/Zipcode | Phone Number | | Organization | | | | + +---------+ + + | EXTERNAL LAB | | | | + +---------+ + + Protime INR (06/12/2018 5:32 AM PDT) + + + + + + | Component | Value | Ref Range | Performed | Pathologist | | | | | At | Signature | + + + + + + | INR | 2.7Comment: REFERENCE | | EXTERNAL | | | | RANGE:0.9 - 1.2 | | LAB | | | | NON-ANTICOAGULATED2.0 | | | | | | - 3.0 ALL OTHER | | | | | | THERAPEUTIC | | | | | | INDICATIONS2.5 - 3.5 | | | | | | MECHANICAL HEART VALVES, | | | | | | RECURRENT OR SYSTEMIC | | | | | | EMBOLISMTesting | | | | | | performed at [facility] | | | | | | [facility];[place], [place] | | | | | | [address] | | | | + + + [...] + +---------+ + + External Lab: CBC (06/12/2018 5:32 AM PDT) + + + + + + | Component | Value | Ref Range | Performed | Pathologist | | | | | At | Signature | + + + + + + | WBC | 5.84 | 3.80 - 11.00 | EXTERNAL | | | | | K/uL | LAB | | + + + + + + | Non- | 4.27 | 4.20 - 5.70 | EXTERNAL | | | Red Blood | | M/uL | LAB | | | Cells | | | | | | Counted | | | | | + + + + + + | Hemoglobin | 9.2 (L) | 13.2 - 17.0 | EXTERNAL | | | | | g/dL | LAB | | + + + + + + | Hematocrit, | 29.1 (L) | 39.0 - 50.0 % | EXTERNAL | | | POC | | | LAB | | + + + + + + | MCV | 68.1 (L) | 80.0 - 100.0 fl | EXTERNAL | | | | | | LAB | | + + + + + + | MCH | 21.6 (L) | 27.0 - 34.0 pg | EXTERNAL | | | | | | LAB | | + + + + + + | MCHC | 31.7 (L) | 32.0 - 35.5 | EXTERNAL | | | | | g/dL | LAB | | + + + + + + | RDW-CV | 49.4 | 37 - 53 fl | EXTERNAL | | | | | | LAB | | + + + + + + | Platelet | 201 | 150 - 400 K/uL | EXTERNAL | | | Count | | | LAB | | | Plasma | | | | | + + + + + + | MPV | 9.3 | fl | EXTERNAL | | | | | | LAB | | + + + + + + | Differentia | AUTOMATED | | EXTERNAL | | | l Type | | | LAB | | + + + + + + | % Segmented | 67.02 | % | EXTERNAL | | | | | | LAB | | | Neutrophils | | | | | + + + + + + | % | 20.21 | % | EXTERNAL | | | Lymphocytes | | | LAB | | + + + + + + | % Monocytes | 6.92 | % | EXTERNAL | | | | | | LAB | | + + + + + + | % | 4.72 | % | EXTERNAL | | | Eosinophils | | | LAB | | + + + + + + | % Basophils | 1.13 | % | EXTERNAL | | | | | | LAB | | + + + + + + | Absolute | 3.91 | 1.90 - 7.40 | EXTERNAL | | | Segmented | | K/uL | LAB | | | Neutrophils | | | | | + + + + + + | Absolute | 1.18 | 1.00 - 3.90 | EXTERNAL | | | Lymphocytes | | K/uL | LAB | | + + + + + + | Absolute | 0.40 | 0.00 - 0.80 | EXTERNAL | | | Monocytes | | K/uL | LAB | | + + + + + + | Absolute | 0.28 | 0.00 - 0.50 | EXTERNAL | | | Eosinophils | | K/uL | LAB | | + + + + + + | Absolute | 0.07 | 0.00 - 0.10 | EXTERNAL | | | Basophils | | K/uL | LAB | | + + + + + + | RBC | 2+ | | EXTERNAL | | | Morphology | Comment: | | LAB | | | | ANISO | | | | | | 3+ | | | | | | HYPO | | | | | | 2+ | | | | | | MICRO | | | | | | NORMAL PLT MORPH | | | | | | | | | | + + + + + + | Platelet | ADEQUATEComment: Testing | | EXTERNAL | | | Estimate | performed at [facility], [address] | | LAB | | | | [address], | | | | | | [place] [address] | | | | + + + + + + + + | Specimen | + + | Blood specimen | | (specimen) | + + + +---------+ + + | Performing | Address | City/State/Zipcode | Phone Number | | Organization | | | | + +---------+ + + | EXTERNAL LAB | | | | + +---------+ + + POC Glucose (06/11/2018 8:55 PM PDT) + + + + + + | Component | Value | Ref Range | Performed | Pathologist | | | | | At | Signature | + + + + + + | Glucose, | 154 (H)Comment: Testing | 65 - 99 mg/dL | EXTERNAL | | | Fingerstick | performed at [facility] | | LAB | | | | [address];[place], [place] | | | | | | [address] | | | | + + + + + + + + | Specimen | + + | | + + + +---------+ + + | Performing | Address | City/State/Zipcode | Phone Number | | Organization | | | | + +---------+ + + | EXTERNAL LAB | | | | + +---------+ + + POC Glucose (06/11/2018 4:54 PM PDT) + + + + + + | Component | Value | Ref Range | Performed | Pathologist | | | | | At | Signature | + + + + + + | Glucose, | 93Comment: Testing | 65 - 99 mg/dL | EXTERNAL | | | Fingerstick | performed at [facility];[address] | | LAB | | | | [address];[place], [place] | | | | | | [address] | | | | + + + + + + + + | Specimen | + + | | + + + +---------+ + + | Performing | Address | City/State/Zipcode | Phone Number | | Organization | | | | + +---------+ + + | EXTERNAL LAB | | | | + +---------+ + + POC Glucose (06/11/2018 11:13 AM PDT) + + + + + + | Component | Value | Ref Range | Performed | Pathologist | | | | | At | Signature | + + + + + + | Glucose, | 137 (H)Comment: Testing | 65 - 99 mg/dL | EXTERNAL | | | Fingerstick | performed at [facility];[address] | | LAB | | | | [address];[place], [place] | | | | | | [address] | | | | + + + + + + + + | Specimen | + + | | + + + +---------+ + + | Performing | Address | City/State/Zipcode | Phone Number | | Organization | | | | + +---------+ + + | EXTERNAL LAB | | | | + +---------+ + + POC Glucose (06/11/2018 5:15 AM PDT) + + + + + + | Component | Value | Ref Range | Performed | Pathologist | | | | | At | Signature | + + + + + + | Glucose, | 120 (H)Comment: Testing | 65 - 99 mg/dL | EXTERNAL | | | Fingerstick | performed at [facility];[address] | | LAB | | | | [address];[place] | | | | | | [address] | | | | + + + + + + + + | Specimen | + + | | + + + +---------+ + + | Performing | Address | City/State/Zipcode | Phone Number | | Organization | | | | + +---------+ + + | EXTERNAL LAB | | | | + +---------+ + + Protime INR (06/11/2018 4:14 AM PDT) + + + + + + | Component | Value | Ref Range | Performed | Pathologist | | | | | At | Signature | + + + + + + | INR | 1.8Comment: REFERENCE | | EXTERNAL | | | | RANGE:0.9 - 1.2 | | LAB | | | | NON-ANTICOAGULATED2.0 | | | | | | - 3.0 ALL OTHER | | | | | | THERAPEUTIC | | | | | | INDICATIONS2.5 - 3.5 | | | | | | MECHANICAL HEART VALVES, | | | | | | RECURRENT OR SYSTEMIC | | | | | | EMBOLISMTesting | | | | | | performed at [facility];[address] | | | | | | [address];[place], [place] | | | | | | [address] | | | | + + + + + + + + | Specimen | + + | Blood specimen | | (specimen) | + + + +---------+ + + | Performing | Address | City/State/Zipcode | Phone Number | | Organization | | | | + +---------+ + + | EXTERNAL LAB | | | | + +---------+ + + POC Glucose (06/10/2018 9:05 PM PDT) + + + + + + | Component | Value | Ref Range | Performed | Pathologist | | | | | At | Signature | + + + + + + | Glucose, | 118 (H)Comment: Testing | 65 - 99 mg/dL | EXTERNAL | | | Fingerstick | performed at [facility];[address] | | LAB | | | | [address];[place] | | | | | | [address] | | | | + + + + + + + + | Specimen | + + | | + + + +---------+ + + | Performing | Address | City/State/Zipcode | Phone Number | | Organization | | | | + +---------+ + + | EXTERNAL LAB | | | | + +---------+ + + POC Glucose (06/10/2018 4:40 PM PDT) + + + + + + | Component | Value | Ref Range | Performed | Pathologist | | | | | At | Signature | + + + + + + | Glucose, | 114 (H)Comment: Testing | 65 - 99 mg/dL | EXTERNAL | | | Fingerstick | performed at [facility];[address] | | LAB | | | | [address];[place], [place] | | | | | | [address] | | | | + + + + + + + + | Specimen | + + | | + + + +---------+ + + | Performing | Address | City/State/Zipcode | Phone Number | | Organization | | | | + +---------+ + + | EXTERNAL LAB | | | | + +---------+ + + POC Glucose (06/10/2018 11:15 AM PDT) + + + + + + | Component | Value | Ref Range | Performed | Pathologist | | | | | At | Signature | + + + + + + | Glucose, | 126 (H)Comment: Testing | 65 - 99 mg/dL | EXTERNAL | | | Fingerstick | performed at [facility];[address] | | LAB | | | | [address];[place] | | | | | | [address] | | | | + + + + + + + + | Specimen | + + | | + + + +---------+ + + | Performing | Address | City/State/Zipcode | Phone Number | | Organization | | | | + +---------+ + + | EXTERNAL LAB | | | | + +---------+ + + POC Glucose (06/10/2018 5:48 AM PDT) + + + + + + | Component | Value | Ref Range | Performed | Pathologist | | | | | At | Signature | + + + + + + | Glucose, | 115 (H)Comment: Testing | 65 - 99 mg/dL | EXTERNAL | | | Fingerstick | performed at [facility];[address] | | LAB | | | | [address];[place], [place] | | | | | | [address] | | | | + + + + + + + + | Specimen | + + | | + + + +---------+ + + | Performing | Address | City/State/Zipcode | Phone Number | | Organization | | | | + +---------+ + + | EXTERNAL LAB | | | | + +---------+ + + Protime INR (06/10/2018 5:00 AM PDT) + + + + + + | Component | Value | Ref Range | Performed | Pathologist | | | | | At | Signature | + + + + + + | INR | 2.0Comment: REFERENCE | | EXTERNAL | | | | RANGE:0.9 - 1.2 | | LAB | | | | NON-ANTICOAGULATED2.0 | | | | | | - 3.0 ALL OTHER | | | | | | THERAPEUTIC | | | | | | INDICATIONS2.5 - 3.5 | | | | | | MECHANICAL HEART VALVES, | | | | | | RECURRENT OR SYSTEMIC | | | | | | EMBOLISMTesting | | | | | | performed at [facility];[address] | | | | | | [facility];[place], [place] | | | | | | [address] | | | | + + + + + + + + | Specimen | + + | Blood specimen | | (specimen) | + + + +---------+ + + | Performing | Address | City/State/Zipcode | Phone Number | | Organization | | | | + +---------+ + + | EXTERNAL LAB | | | | + +---------+ + + Magnesium (06/10/2018 5:00 AM PDT) + + + + + + | Component | Value | Ref Range | Performed | Pathologist | | | | | At | Signature | + + + + + + | Magnesium | 1.9Comment: Testing | 1.7 - 2.4 mg/dL | EXTERNAL | | | | performed at [facility];[address] | | LAB | | | | [address];[place] | | | | | | [address] | | | | + + + + + + + + | Specimen | + + | Blood specimen | | (specimen) | + + + +---------+ + + | Performing | Address | City/State/Zipcode | Phone Number | | Organization | | | | + +---------+ + + | EXTERNAL LAB | | | | + +---------+ + + Basic Metabolic Panel (06/10/2018 5:00 AM PDT) + + + + + + | Component | Value | Ref Range | Performed | Pathologist | | | | | At | Signature | + + + + + + | Na | 141 | 135 - 145 | EXTERNAL | | | | | mmol/L | LAB | | + + + + + + | K | 4.3 | 3.5 - 4.9 | EXTERNAL | | | | | mmol/L | LAB | | + + + + + + | Cl | 105 | 99 - 109 mmol/L | EXTERNAL | | | | | | LAB | | + + + + + + | CO2 | 30 | 23 - 32 mmol/L | EXTERNAL | | | | | | LAB | | + + + + + + | Anion Gap | 11 | 5 - 20 mmol/L | EXTERNAL | | | | | | LAB | | + + + + + + | Glucose, | 122 (H) | 65 - 99 mg/dL | EXTERNAL | | | Fasting | | | LAB | | + + + + + + | BUN | 17 | 8 - 25 mg/dL | EXTERNAL | | | | | | LAB | | + + + + + + | Creatinine | 0.77 | 0.70 - 1.30 | EXTERNAL | | | | | mg/dL | LAB | | + + + + + + | BUN/Creatin | 22 | | EXTERNAL | | | ine Ratio | | | LAB | | + + + + + + | Calcium | 7.9 (L) | 8.5 - 10.5 | EXTERNAL | | | | | mg/dL | LAB | | + + + + + + | Estimated | >60Comment: GFR <60: | mL/min/1.73m2 | EXTERNAL | | | GFR | CHRONIC KIDNEY DISEASE, | | LAB | | | | IF FOUND OVER A 3 MONTH | | | | | | PERIOD.GFR <15: KIDNEY | | | | | | FAILURE.FOR | | | | | | AMERICANS, MULTIPLY THE | | | | | | CALCULATED GFR BY | | | | | | 1.210.This eGFR is | | | | | | calculated using the | | | | | | MDRD IDLA traceable | | | | | | equation.Testing | | | | | | performed at [facility] | | | | | | [facility];[place], [place] | | | | | | [address] | | | | + + + + + + + + | Specimen | + + | Blood specimen | | (specimen) | + + + +---------+ + + | Performing | Address | City/State/Zipcode | Phone Number | | Organization | | | | + +---------+ + + | EXTERNAL LAB | | | | + +---------+ + + POC Glucose (06/09/2018 9:30 PM PDT) + + + + + + | Component | Value | Ref Range | Performed | Pathologist | | | | | At | Signature | + + + + + + | Glucose, | 134 (H)Comment: Testing | 65 - 99 mg/dL | EXTERNAL | | | Fingerstick | performed at [facility];[address] | | LAB | | | | [address];[place], [place] | | | | | | [address] | | | | + + + + + + + + | Specimen | + + | | + + + +---------+ + + | Performing | Address | City/State/Zipcode | Phone Number | | Organization | | | | + +---------+ + + | EXTERNAL LAB | | | | + +---------+ + + POC Glucose (06/09/2018 4:21 PM PDT) + + + + + + | Component | Value | Ref Range | Performed | Pathologist | | | | | At | Signature | + + + + + + | Glucose, | 106 (H)Comment: Testing | 65 - 99 mg/dL | EXTERNAL | | | Fingerstick | performed at [facility];[address] | | LAB | | | | [address];[place], [place] | | | | | | [address] | | | | + + + + + + + + | Specimen | + + | | + + + +---------+ + + | Performing | Address | City/State/Zipcode | Phone Number | | Organization | | | | + +---------+ + + | EXTERNAL LAB | | | | + +---------+ + + POC Glucose (06/09/2018 11:21 AM PDT) + + + + + + | Component | Value | Ref Range | Performed | Pathologist | | | | | At | Signature | + + + + + + | Glucose, | 101 (H)Comment: Testing | 65 - 99 mg/dL | EXTERNAL | | | Fingerstick | performed at [facility];[address] | | LAB | | | | [address];[place], [place] | | | | | | [address] | | | | + + + + + + + + | Specimen | + + | | + + + +---------+ + + | Performing | Address | City/State/Zipcode | Phone Number | | Organization | | | | + +---------+ + + | EXTERNAL LAB | | | | + +---------+ + + Sedimentation rate, automated (06/09/2018 8:45 AM PDT) + + + + + + | Component | Value | Ref Range | Performed | Pathologist | | | | | At | Signature | + + + + + + | Sed Rate | 33 (H)Comment: Testing | 0 - 20 mm/Hr | EXTERNAL | | | | performed at [facility];[address] | | LAB | | | | [address];[place] | | | | | | [address] | | | | + + + + + + + + | Specimen | + + | Blood specimen | | (specimen) | + + + +---------+ + + | Performing | Address | City/State/Zipcode | Phone Number | | Organization | | | | + +---------+ + + | EXTERNAL LAB | | | | + +---------+ + + C-Reactive Protein (06/09/2018 8:45 AM PDT) + + + + + + | Component | Value | Ref Range | Performed | Pathologist | | | | | At | Signature | + + + + + + | CRP | 0.4Comment: Testing | mg/dL | EXTERNAL | | | | performed at [facility];[address] | | LAB | | | | [address];[place], [place] | | | | | | [address] | | | | + + + + + + + + | Specimen | + + | Blood specimen | | (specimen) | + + + +---------+ + + | Performing | Address | City/State/Zipcode | Phone Number | | Organization | | | | + +---------+ + + | EXTERNAL LAB | | | | + +---------+ + + Protime INR (06/09/2018 5:21 AM PDT) + + + + + + | Component | Value | Ref Range | Performed | Pathologist | | | | | At | Signature | + + + + + + | INR | 3.1Comment: REFERENCE | | EXTERNAL | | | | RANGE:0.9 - 1.2 | | LAB | | | | NON-ANTICOAGULATED2.0 | | | | | | - 3.0 ALL OTHER | | | | | | THERAPEUTIC | | | | | | INDICATIONS2.5 - 3.5 | | | | | | MECHANICAL HEART VALVES, | | | | | | RECURRENT OR SYSTEMIC | | | | | | EMBOLISMTesting | | | | | | performed at [facility];[address] | | | | | | [address];[place], [place] | | | | | | [address] | | | | + + + + + + + + | Specimen | + + | Blood specimen | | (specimen) | + + + +---------+ + + | Performing | Address | City/State/Zipcode | Phone Number | | Organization | | | | + +---------+ + + | EXTERNAL LAB | | | | + +---------+ + + External Lab: LILLIE (06/09/2018 5:21 AM PDT) + + + + + + | Component | Value | Ref Range | Performed | Pathologist | | | | | At | Signature | + + + + + + | WBC | 6.58 | 3.80 - 11.00 | EXTERNAL | | | | | K/uL | LAB | | + + + + + + | Non- | 4.57 | 4.20 - 5.70 | EXTERNAL | | | Red Blood | | M/uL | LAB | | | Cells | | | | | | Counted | | | | | + + + + + + | Hemoglobin | 9.8 (L) | 13.2 - 17.0 | EXTERNAL | | | | | g/dL | LAB | | + + + + + + | Hematocrit, | 31.2 (L) | 39.0 - 50.0 % | EXTERNAL | | | POC | | | LAB | | + + + + + + | MCV | 68.3 (L) | 80.0 - 100.0 fl | EXTERNAL | | | | | | LAB | | + + + + + + | MCH | 21.5 (L) | 27.0 - 34.0 pg | EXTERNAL | | | | | | LAB | | + + + + + + | MCHC | 31.5 (L) | 32.0 - 35.5 | EXTERNAL | | | | | g/dL | LAB | | + + + + + + | RDW-CV | 49.4 | 37 - 53 fl | EXTERNAL | | | | | | LAB | | + + + + + + | Platelet | 175 | 150 - 400 K/uL | EXTERNAL | | | Count | | | LAB | | | Plasma | | | | | + + + + + + | MPV | 8.9 | fl | EXTERNAL | | | | | | LAB | | + + + + + + | Differentia | AUTOMATED | | EXTERNAL | | | l Type | | | LAB | | + + + + + + | % Segmented | 61.51 | % | EXTERNAL | | | | | | LAB | | | Neutrophils | | | | | + + + + + + | % | 26.30 | % | EXTERNAL | | | Lymphocytes | | | LAB | | + + + + + + | % Monocytes | 6.21 | % | EXTERNAL | | | | | | LAB | | + + + + + + | % | 4.81 | % | EXTERNAL | | | Eosinophils | | | LAB | | + + + + + + | % Basophils | 1.17 | % | EXTERNAL | | | | | | LAB | | + + + + + + | Absolute | 4.04 | 1.90 - 7.40 | EXTERNAL | | | Segmented | | K/uL | LAB | | | Neutrophils | | | | | + + + + + + | Absolute | 1.73 | 1.00 - 3.90 | EXTERNAL | | | Lymphocytes | | K/uL | LAB | | + + + + + + | Absolute | 0.41 | 0.00 - 0.80 | EXTERNAL | | | Monocytes | | K/uL | LAB | | + + + + + + | Absolute | 0.32 | 0.00 - 0.50 | EXTERNAL | | | Eosinophils | | K/uL | LAB | | + + + + + + | Absolute | 0.08 | 0.00 - 0.10 | EXTERNAL | | | Basophils | | K/uL | LAB | | + + + + + + | RBC | 2+ | | EXTERNAL | | | Morphology | Comment: | | LAB | | | | ANISO | | | | | | 3+ | | | | | | HYPO | | | | | | 2+ | | | | | | MICRO | | | | | | NORMAL PLT MORPH | | | | | | | | | | + + + + + + | Platelet | ADEQUATEComment: Testing | | EXTERNAL | | | Estimate | performed at [facility], [address] | | LAB | | | | [address], | | | | | | [place] [address] | | | | + + + + + + + + | Specimen | + + | Blood specimen | | (specimen) | + + + +---------+ + + | Performing | Address | City/State/Zipcode | Phone Number | | Organization | | | | + +---------+ + + | EXTERNAL LAB | | | | + +---------+ + + POC Glucose (06/09/2018 5:02 AM PDT) + + + + + + | Component | Value | Ref Range | Performed | Pathologist | | | | | At | Signature | + + + + + + | Glucose, | 120 (H)Comment: Testing | 65 - 99 mg/dL | EXTERNAL | | | Fingerstick | performed at [facility];[address] | | LAB | | | | [address];[place] | | | | | | [address] | | | | + + + + + + + + | Specimen | + + | | + + + +---------+ + + | Performing | Address | City/State/Zipcode | Phone Number | | Organization | | | | + +---------+ + + | EXTERNAL LAB | | | | + +---------+ + + POC Glucose (06/08/2018 9:05 PM PDT) + + + + + + | Component | Value | Ref Range | Performed | Pathologist | | | | | At | Signature | + + + + + + | Glucose, | 143 (H)Comment: Testing | 65 - 99 mg/dL | EXTERNAL | | | Fingerstick | performed at [facility];[address] | | LAB | | | | [address];[place] | | | | | | [address] | | | | + + + + + + + + | Specimen | + + | | + + + +---------+ + + | Performing | Address | City/State/Zipcode | Phone Number | | Organization | | | | + +---------+ + + | EXTERNAL LAB | | | | + +---------+ + + POC Glucose (06/08/2018 4:06 PM PDT) + + + + + + | Component | Value | Ref Range | Performed | Pathologist | | | | | At | Signature | + + + + + + | Glucose, | 115 (H)Comment: Testing | 65 - 99 mg/dL | EXTERNAL | | | Fingerstick | performed at [facility];[address] | | LAB | | | | [address];[place] | | | | | | [address] | | | | + + + + + + + + | Specimen | + + | | + + + +---------+ + + | Performing | Address | City/State/Zipcode | Phone Number | | Organization | | | | + +---------+ + + | EXTERNAL LAB | | | | + +---------+ + + POC Glucose (06/08/2018 11:21 AM PDT) + + + + + + | Component | Value | Ref Range | Performed | Pathologist | | | | | At | Signature | + + + + + + | Glucose, | 107 (H)Comment: Testing | 65 - 99 mg/dL | EXTERNAL | | | Fingerstick | performed at [facility];[address] | | LAB | | | | [address];[place], [place] | | | | | | [address] | | | | + + + + + + + + | Specimen | + + | | + + + +---------+ + + | Performing | Address | City/State/Zipcode | Phone Number | | Organization | | | | + +---------+ + + | EXTERNAL LAB | | | | + +---------+ + + Protime INR (06/08/2018 5:18 AM PDT) + + + + + + | Component | Value | Ref Range | Performed | Pathologist | | | | | At | Signature | + + + + + + | INR | 3.2Comment: REFERENCE | | EXTERNAL | | | | RANGE:0.9 - 1.2 | | LAB | | | | NON-ANTICOAGULATED2.0 | | | | | | - 3.0 ALL OTHER | | | | | | THERAPEUTIC | | | | | | INDICATIONS2.5 - 3.5 | | | | | | MECHANICAL HEART VALVES, | | | | | | RECURRENT OR SYSTEMIC | | | | | | EMBOLISMTesting | | | | | | performed at [facility];[address] | | | | | | [facility];[place], [place] | | | | | | [address] | | | | + + + + + + + + | Specimen | + + | Blood specimen | | (specimen) | + + + +---------+ + + | Performing | Address | City/State/Zipcode | Phone Number | | Organization | | | | + +---------+ + + | EXTERNAL LAB | | | | + +---------+ + + POC Glucose (06/08/2018 5:00 AM PDT) + + + + + + | Component | Value | Ref Range | Performed | Pathologist | | | | | At | Signature | + + + + + + | Glucose, | 116 (H)Comment: Testing | 65 - 99 mg/dL | EXTERNAL | | | Fingerstick | performed at [facility];[address] | | LAB | | | | [address];[place] | | | | | | [address] | | | | + + + + + + + + | Specimen | + + | | + + + +---------+ + + | Performing | Address | City/State/Zipcode | Phone Number | | Organization | | | | + +---------+ + + | EXTERNAL LAB | | | | + +---------+ + + POC Glucose (06/07/2018 9:04 PM PDT) + + + + + + | Component | Value | Ref Range | Performed | Pathologist | | | | | At | Signature | + + + + + + | Glucose, | 176 (H)Comment: Testing | 65 - 99 mg/dL | EXTERNAL | | | Fingerstick | performed at [facility];[address] | | LAB | | | | [address];[place] | | | | | | [address] | | | | + + + + + + + + | Specimen | + + | | + + + +---------+ + + | Performing | Address | City/State/Zipcode | Phone Number | | Organization | | | | + +---------+ + + | EXTERNAL LAB | | | | + +---------+ + + POC Glucose (06/07/2018 4:19 PM PDT) + + + + + + | Component | Value | Ref Range | Performed | Pathologist | | | | | At | Signature | + + + + + + | Glucose, | 146 (H)Comment: Testing | 65 - 99 mg/dL | EXTERNAL | | | Fingerstick | performed at [facility];[address] | | LAB | | | | [address];[place], [place] | | | | | | [address] | | | | + + + + + + + + | Specimen | + + | | + + + +---------+ + + | Performing | Address | City/State/Zipcode | Phone Number | | Organization | | | | + +---------+ + + | EXTERNAL LAB | | | | + +---------+ + + POC Glucose (06/07/2018 11:27 AM PDT) + + + + + + | Component | Value | Ref Range | Performed | Pathologist | | | | | At | Signature | + + + + + + | Glucose, | 103 (H)Comment: Testing | 65 - 99 mg/dL | EXTERNAL | | | Fingerstick | performed at [facility];[address] | | LAB | | | | [address];[place] | | | | | | [address] | | | | + + + + + + + + | Specimen | + + | | + + + +---------+ + + | Performing | Address | City/State/Zipcode | Phone Number | | Organization | | | | + +---------+ + + | EXTERNAL LAB | | | | + +---------+ + + POC Glucose (06/07/2018 5:06 AM PDT) + + + + + + | Component | Value | Ref Range | Performed | Pathologist | | | | | At | Signature | + + + + + + | Glucose, | 139 (H)Comment: Testing | 65 - 99 mg/dL | EXTERNAL | | | Fingerstick | performed at [facility];[address] | | LAB | | | | [address];[place], [place] | | | | | | [address] | | | | + + + + + + + + | Specimen | + + | | + + + +---------+ + + | Performing | Address | City/State/Zipcode | Phone Number | | Organization | | | | + +---------+ + + | EXTERNAL LAB | | | | + +---------+ + + Protime INR (06/07/2018 4:20 AM PDT) + + + + + + | Component | Value | Ref Range | Performed | Pathologist | | | | | At | Signature | + + + + + + | INR | 2.3Comment: REFERENCE | | EXTERNAL | | | | RANGE:0.9 - 1.2 | | LAB | | | | NON-ANTICOAGULATED2.0 | | | | | | - 3.0 ALL OTHER | | | | | | THERAPEUTIC | | | | | | INDICATIONS2.5 - 3.5 | | | | | | MECHANICAL HEART VALVES, | | | | | | RECURRENT OR SYSTEMIC | | | | | | EMBOLISMTesting | | | | | | performed at [facility] | | | | | | [address] [facility];[place], [place] | | | | | | [address] | | | | + + + + + + + + | Specimen | + + | Blood specimen | | (specimen) | + + + +---------+ + + | Performing | Address | City/State/Zipcode | Phone Number | | Organization | | | | + +---------+ + + | EXTERNAL LAB | | | | + +---------+ + + Magnesium (06/07/2018 4:20 AM PDT) + + + + + + | Component | Value | Ref Range | Performed | Pathologist | | | | | At | Signature | + + + + + + | Magnesium | 2.0Comment: Testing | 1.7 - 2.4 mg/dL | EXTERNAL | | | | performed at [facility];[address] | | LAB | | | | [facility];[place], [place] | | | | | | [address] | | | | + + + + + + + + | Specimen | + + | Blood specimen | | (specimen) | + + + +---------+ + + | Performing | Address | City/State/Zipcode | Phone Number | | Organization | | | | + +---------+ + + | EXTERNAL LAB | | | | + +---------+ + + Basic Metabolic Panel (06/07/2018 4:20 AM PDT) + + + + + + | Component | Value | Ref Range | Performed | Pathologist | | | | | At | Signature | + + + + + + | Na | 138 | 135 - 145 | EXTERNAL | | | | | mmol/L | LAB | | + + + + + + | K | 4.4 | 3.5 - 4.9 | EXTERNAL | | | | | mmol/L | LAB | | + + + + + + | Cl | 103 | 99 - 109 mmol/L | EXTERNAL | | | | | | LAB | | + + + + + + | CO2 | 27 | 23 - 32 mmol/L | EXTERNAL | | | | | | LAB | | + + + + + + | Anion Gap | 12 | 5 - 20 mmol/L | EXTERNAL | | | | | | LAB | | + + + + + + | Glucose, | 104 (H) | 65 - 99 mg/dL | EXTERNAL | | | Fasting | | | LAB | | + + + + + + | BUN | 16 | 8 - 25 mg/dL | EXTERNAL | | | | | | LAB | | + + + + + + | Creatinine | 0.82 | 0.70 - 1.30 | EXTERNAL | | | | | mg/dL | LAB | | + + + + + + | BUN/Creatin | 19 | | EXTERNAL | | | ine Ratio | | | LAB | | + + + + + + | Calcium | 8.3 (L) | 8.5 - 10.5 | EXTERNAL | | | | | mg/dL | LAB | | + + + + + + | Estimated | >60Comment: GFR <60: | mL/min/1.73m2 | EXTERNAL | | | GFR | CHRONIC KIDNEY DISEASE, | | LAB | | | | IF FOUND OVER A 3 MONTH | | | | | | PERIOD.GFR <15: KIDNEY | | | | | | FAILURE.FOR | | | | | | AMERICANS, MULTIPLY THE | | | | | | CALCULATED GFR BY | | | | | | 1.210.This eGFR is | | | | | | calculated using the | | | | | | [facility]D [facility] traceable | | | | | | equation.Testing | | | | | | performed at [facility];[address] | | | | | | [facility];[place], [place] | | | | | | [address] | | | | + + + + + + + + | Specimen | + + | Blood specimen | | (specimen) | + + + +---------+ + + | Performing | Address | City/State/Zipcode | Phone Number | | Organization | | | | + +---------+ + + | EXTERNAL LAB | | | | + +---------+ + + POC Glucose (06/06/2018 9:05 PM PDT) + + + + + + | Component | Value | Ref Range | Performed | Pathologist | | | | | At | Signature | + + + + + + | Glucose, | 161 (H)Comment: Testing | 65 - 99 mg/dL | EXTERNAL | | | Fingerstick | performed at [facility];[address] | | LAB | | | | [address];[place] | | | | | | [address] | | | | + + + + + + + + | Specimen | + + | | + + + +---------+ + + | Performing | Address | City/State/Zipcode | Phone Number | | Organization | | | | + +---------+ + + | EXTERNAL LAB | | | | + +---------+ + + POC Glucose (06/06/2018 4:07 PM PDT) + + + + + + | Component | Value | Ref Range | Performed | Pathologist | | | | | At | Signature | + + + + + + | Glucose, | 160 (H)Comment: Testing | 65 - 99 mg/dL | EXTERNAL | | | Fingerstick | performed at [facility];[address] | | LAB | | | | [address];[place] | | | | | | [address] | | | | + + + + + + + + | Specimen | + + | | + + + +---------+ + + | Performing | Address | City/State/Zipcode | Phone Number | | Organization | | | | + +---------+ + + | EXTERNAL LAB | | | | + +---------+ + + POC Glucose (06/06/2018 11:04 AM PDT) + + + + + + | Component | Value | Ref Range | Performed | Pathologist | | | | | At | Signature | + + + + + + | Glucose, | 113 (H)Comment: Testing | 65 - 99 mg/dL | EXTERNAL | | | Fingerstick | performed at [facility];[address] | | LAB | | | | [address];[place] | | | | | | [address] | | | | + + + + + + + + | Specimen | + + | | + + + +---------+ + + | Performing | Address | City/State/Zipcode | Phone Number | | Organization | | | | + +---------+ + + | EXTERNAL LAB | | | | + +---------+ + + POC Glucose (06/06/2018 5:05 AM PDT) + + + + + + | Component | Value | Ref Range | Performed | Pathologist | | | | | At | Signature | + + + + + + | Glucose, | 93Comment: Testing | 65 - 99 mg/dL | EXTERNAL | | | Fingerstick | performed at [facility];[address] | | LAB | | | | [address];[place] | | | | | | [address] | | | | + + + + + + + + | Specimen | + + | | + + + +---------+ + + | Performing | Address | City/State/Zipcode | Phone Number | | Organization | | | | + +---------+ + + | EXTERNAL LAB | | | | + +---------+ + + Protime INR (06/06/2018 4:45 AM PDT) + + + + + + | Component | Value | Ref Range | Performed | Pathologist | | | | | At | Signature | + + + + + + | INR | 2.6Comment: REFERENCE | | EXTERNAL | | | | RANGE:0.9 - 1.2 | | LAB | | | | NON-ANTICOAGULATED2.0 | | | | | | - 3.0 ALL OTHER | | | | | | THERAPEUTIC | | | | | | INDICATIONS2.5 - 3.5 | | | | | | MECHANICAL HEART VALVES, | | | | | | RECURRENT OR SYSTEMIC | | | | | | EMBOLISMTesting | | | | | | performed at [facility] | | | | | | [address];[place], [place] | | | | | | [address] | | | | + + + [...] + +---------+ + + External Lab: CBC (06/06/2018 4:45 AM PDT) + + +---- + + + | Component | Value | Ref Range | Performed | Pathologist | | | | | At | Signature | + + +---- + + + | WBC | 6.71 | 3.8 0 - 11.00 | EXTERNAL | | | | | K/u L | LAB | | + + +---- + + + | Non- | 4.72 | 4.2 0 - 5.70 | EXTERNAL | | | Red Blood | | M/u L | LAB | | | Cells | | | | | | Counted | | | | | + + +---- + + + | Hemoglobin | 10.3 (L) | 13. 2 - 17.0 | EXTERNAL | | | | | g/d L | LAB | | + + +---- + + + | Hematocrit, | 32.8 (L) | 39. 0 - 50.0 % | EXTERNAL | | | POC | | | LAB | | + + +---- + + + | MCV | 69.6 (L) | 80. 0 - 100.0 fl | EXTERNAL | | | | | | LAB | | + + +---- + + + | MCH | 21.8 (L) | 27. 0 - 34.0 pg | EXTERNAL | | | | | | LAB | | + + +---- + + + | MCHC | 31.3 (L) | 32. 0 - 35.5 | EXTERNAL | | | | | g/d L | LAB | | + + +---- + + + | RDW-CV | 52.5 | 37 - 53 fl | EXTERNAL | | | | | | LAB | | + + +---- + + + | Platelet | 210 | 150 - 400 K/uL | EXTERNAL | | | Count | | | LAB | | | Plasma | | | | | + + +---- + + + | MPV | 8.7 | fl | EXTERNAL | | | | | | LAB | | + + +---- + + + | Differentia | AUTOMATED | | EXTERNAL | | | l Type | | | LAB | | + + +---- + + + | % Segmented | 59.35 | % | EXTERNAL | | | | | | LAB | | | Neutrophils | | | | | + + +---- + + + | % | 25.40 | % | EXTERNAL | | | Lymphocytes | | | LAB | | + + +---- + + + | % Monocytes | 6.35 | % | EXTERNAL | | | | | | LAB | | + + +---- + + + | % | 6.68 | % | EXTERNAL | | | Eosinophils | | | LAB | | + + +---- + + + | % Basophils | 2.22 | % | EXTERNAL | | | | | | LAB | | + + +---- + + + | Absolute | 3.98 | 1.9 0 - 7.40 | EXTERNAL | | | Segmented | | K/u L | LAB | | | Neutrophils | | | | | + + +---- + + + | Absolute | 1.71 | 1.0 0 - 3.90 | EXTERNAL | | | Lymphocytes | | K/u L | LAB | | + + +---- + + + | Absolute | 0.43 | 0.0 0 - 0.80 | EXTERNAL | | | Monocytes | | K/u L | LAB | | + + +---- + + + | Absolute | 0.45 | 0.0 0 - 0.50 | EXTERNAL | | | Eosinophils | | K/u L | LAB | | + + +---- + + + | Absolute | 0.15 (H) | 0.0 0 - 0.10 | EXTERNAL | | | Basophils | | K/u L | LAB | | + + +---- + + + | RBC | 2+Comment: | | EXTERNAL | | | Morphology | HYPO2+MICRO1+ANISONORMAL | | LAB | | | | PLT MORPHTesting | | | | | | performed at [facility], [address] | | | | | [facility], | | | | | | [place] [address] | | | | | |ANISO | | | | | |NORMAL PLT MORPH | | | | | |Testing performed at [facility], [address] [facility], [place] [address] | | | | | | | | | | + + +---- + + + + + | Specimen | + + | Blood specimen | | (specimen) | + + + +---------+ + + | Performing | Address | City/State/Zipcode | Phone Number | | Organization | | | | + +---------+ + + | EXTERNAL LAB | | | | + +---------+ + + Magnesium (06/06/2018 4:45 AM PDT) + + + + + + | Component | Value | Ref Range | Performed | Pathologist | | | | | At | Signature | + + + + + + | Magnesium | 2.0Comment: Testing | 1.7 - 2.4 mg/dL | EXTERNAL | | | | performed at [facility];[address] | | LAB | | | | [address];[place], [place] | | | | | | [address] | | | | + + + + + + + + | Specimen | + + | Blood specimen | | (specimen) | + + + +---------+ + + | Performing | Address | City/State/Zipcode | Phone Number | | Organization | | | | + +---------+ + + | EXTERNAL LAB | | | | + +---------+ + + Basic Metabolic Panel (06/06/2018 4:45 AM PDT) + + + + + + | Component | Value | Ref Range | Performed | Pathologist | | | | | At | Signature | + + + + + + | Na | 137 | 135 - 145 | EXTERNAL | | | | | mmol/L | LAB | | + + + + + + | K | 4.3 | 3.5 - 4.9 | EXTERNAL | | | | | mmol/L | LAB | | + + + + + + | Cl | 102 | 99 - 109 mmol/L | EXTERNAL | | | | | | LAB | | + + + + + + | CO2 | 25 | 23 - 32 mmol/L | EXTERNAL | | | | | | LAB | | + + + + + + | Anion Gap | 14 | 5 - 20 mmol/L | EXTERNAL | | | | | | LAB | | + + + + + + | Glucose, | 98 | 65 - 99 mg/dL | EXTERNAL | | | Fasting | | | LAB | | + + + + + + | BUN | 13 | 8 - 25 mg/dL | EXTERNAL | | | | | | LAB | | + + + + + + | Creatinine | 0.8 | 0.70 - 1.30 | EXTERNAL | | | | | mg/dL | LAB | | + + + + + + | BUN/Creatin | 16 | | EXTERNAL | | | ine Ratio | | | LAB | | + + + + + + | Calcium | 8.4 (L) | 8.5 - 10.5 | EXTERNAL | | | | | mg/dL | LAB | | + + + + + + | Estimated | >60Comment: GFR <60: | mL/min/1.73m2 | EXTERNAL | | | GFR | CHRONIC KIDNEY DISEASE, | | LAB | | | | IF FOUND OVER A 3 MONTH | | | | | | PERIOD.GFR <15: KIDNEY | | | | | | FAILURE.FOR | | | | | | AMERICANS, MULTIPLY THE | | | | | | CALCULATED GFR BY | | | | | | 1.210.This eGFR is | | | | | | calculated using the | | | | | | MDRD [facility] traceable | | | | | | equation.Testing | | | | | | performed at [facility], [address] | | | | | [facility], | | | | | | [place] [address] | | | | + + + + + + + + | Specimen | + + | Blood specimen | | (specimen) | + + + +---------+ + + | Performing | Address | City/State/Zipcode | Phone Number | | Organization | | | | + +---------+ + + | EXTERNAL LAB | | | | + +---------+ + + POC Glucose (06/05/2018 9:08 PM PDT) + + + + + + | Component | Value | Ref Range | Performed | Pathologist | | | | | At | Signature | + + + + + + | Glucose, | 142 (H)Comment: Testing | 65 - 99 mg/dL | EXTERNAL | | | Fingerstick | performed at [facility];[address] | | LAB | | | | [address];[place] | | | | | | [address] | | | | + + + + + + + + | Specimen | + + | | + + + +---------+ + + | Performing | Address | City/State/Zipcode | Phone Number | | Organization | | | | + +---------+ + + | EXTERNAL LAB | | | | + +---------+ + + POC Glucose (06/05/2018 8:54 PM PDT) + + + + + + | Component | Value | Ref Range | Performed | Pathologist | | | | | At | Signature | + + + + + + | Glucose, | 130 (H)Comment: Testing | 65 - 99 mg/dL | EXTERNAL | | | Fingerstick | performed at [facility] | | LAB | | | | [address];[place] | | | | | | [id number] | | | | + + + + + + + + | Specimen | + + | | + + + +---------+ + + | Performing | Address | City/State/Zipcode | Phone Number | | Organization | | | | + +---------+ + + | EXTERNAL LAB | | | | + +---------+ + + POC Glucose (06/05/2018 4:32 PM PDT) + + + + + + | Component | Value | Ref Range | Performed | Pathologist | | | | | At | Signature | + + + + + + | Glucose, | 137 (H)Comment: Testing | 65 - 99 mg/dL | EXTERNAL | | | Fingerstick | performed at [facility];[address] | | LAB | | | | [address];[place], [place] | | | | | | [address] | | | | + + + + + + + + | Specimen | + + | | + + + +---------+ + + | Performing | Address | City/State/Zipcode | Phone Number | | Organization | | | | + +---------+ + + | EXTERNAL LAB | | | | + +---------+ + + POC Glucose (06/05/2018 11:00 AM PDT) + + + + + + | Component | Value | Ref Range | Performed | Pathologist | | | | | At | Signature | + + + + + + | Glucose, | 153 (H)Comment: Testing | 65 - 99 mg/dL | EXTERNAL | | | Fingerstick | performed at [facility] | | LAB | | | | [address];[place], [place] | | | | | | [address] | | | | + + + + + + + + | Specimen | + + | | + + + +---------+ + + | Performing | Address | City/State/Zipcode | Phone Number | | Organization | | | | + +---------+ + + | EXTERNAL LAB | | | | + +---------+ + + POC Glucose (06/05/2018 5:10 AM PDT) + + + + + + | Component | Value | Ref Range | Performed | Pathologist | | | | | At | Signature | + + + + + + | Glucose, | 85Comment: Testing | 65 - 99 mg/dL | EXTERNAL | | | Fingerstick | performed at [facility];[address] | | LAB | | | | [address];[place] | | | | | | [address] | | | | + + + + + + + + | Specimen | + + | | + + + +---------+ + + | Performing | Address | City/State/Zipcode | Phone Number | | Organization | | | | + +---------+ + + | EXTERNAL LAB | | | | + +---------+ + + Protime INR (06/05/2018 4:41 AM PDT) + + + + + + | Component | Value | Ref Range | Performed | Pathologist | | | | | At | Signature | + + + + + + | INR | 4.0Comment: REFERENCE | | EXTERNAL | | | | RANGE:0.9 - 1.2 | | LAB | | | | NON-ANTICOAGULATED2.0 | | | | | | - 3.0 ALL OTHER | | | | | | THERAPEUTIC | | | | | | INDICATIONS2.5 - 3.5 | | | | | | MECHANICAL HEART VALVES, | | | | | | RECURRENT OR SYSTEMIC | | | | | | EMBOLISMTesting | | | | | | performed at [facility];[address] | | | | | | [address];[place], [place] | | | | | | [address] | | | | + + + + + + + + | Specimen | + + | Blood specimen | | (specimen) | + + + +---------+ + + | Performing | Address | City/State/Zipcode | Phone Number | | Organization | | | | + +---------+ + + | EXTERNAL LAB | | | | + +---------+ + + Magnesium (06/05/2018 4:41 AM PDT) + + + + + + | Component | Value | Ref Range | Performed | Pathologist | | | | | At | Signature | + + + + + + | Magnesium | 1.9Comment: Testing | 1.7 - 2.4 mg/dL | EXTERNAL | | | | performed at [facility];[address] | | LAB | | | | [address];[place] | | | | | | [address] | | | | + + + + + + + + | Specimen | + + | Blood specimen | | (specimen) | + + + +---------+ + + | Performing | Address | City/State/Zipcode | Phone Number | | Organization | | | | + +---------+ + + | EXTERNAL LAB | | | | + +---------+ + + Basic Metabolic Panel (06/05/2018 4:41 AM PDT) + + + + + + | Component | Value | Ref Range | Performed | Pathologist | | | | | At | Signature | + + + + + + | Na | 139 | 135 - 145 | EXTERNAL | | | | | mmol/L | LAB | | + + + + + + | K | 4.3 | 3.5 - 4.9 | EXTERNAL | | | | | mmol/L | LAB | | + + + + + + | Cl | 103 | 99 - 109 mmol/L | EXTERNAL [...] + + + + | Glucose, | 84 | 65 - 99 mg/dL | EXTERNAL | | | Fasting | | | LAB | | + + + + + + | BUN | 14 | 8 - 25 mg/dL | EXTERNAL | | | | | | LAB | | + + + + + + | Creatinine | 0.77 | 0.70 - 1.30 | EXTERNAL | | | | | mg/dL | LAB | | + + + + + + | BUN/Creatin | 19 | | EXTERNAL | | | ine Ratio | | | LAB | | + + + + + + | Calcium | 7.8 (L) | 8.5 - 10.5 | EXTERNAL | | | | | mg/dL | LAB | | + + + + + + | Estimated | >60Comment: GFR <60: | mL/min/1.73m2 | EXTERNAL | | | GFR | CHRONIC KIDNEY DISEASE, | | LAB | | | | IF FOUND OVER A 3 MONTH | | | | | | PERIOD.GFR <15: KIDNEY | | | | | | FAILURE.FOR | | | | | | AMERICANS, MULTIPLY THE | | | | | | CALCULATED GFR BY | | | | | | 1.210.This eGFR is | | | | | | calculated using the | | | | | | MDRD IDMS traceable | | | | | | equation.Testing | | | | | | performed at [facility];[address] | | | | | | [address];[place], [place] | | | | | | [address] | | | | + + + + + + + + | Specimen | + + | Blood specimen | | (specimen) | + + + +---------+ + + | Performing | Address | City/State/Zipcode | Phone Number | | Organization | | | | + +---------+ + + | EXTERNAL LAB | | | | + +---------+ + + POC Glucose (06/04/2018 9:07 PM PDT) + + + + + + | Component | Value | Ref Range | Performed | Pathologist | | | | | At | Signature | + + + + + + | Glucose, | 168 (H)Comment: Testing | 65 - 99 mg/dL | EXTERNAL | | | Fingerstick | performed at [facility];[address] | | LAB | | | | [address];[place], [place] | | | | | | [address] | | | | + + + + + + + + | Specimen | + + | | + + + +---------+ + + | Performing | Address | City/State/Zipcode | Phone Number | | Organization | | | | + +---------+ + + | EXTERNAL LAB | | | | + +---------+ + + POC Glucose (06/04/2018 5:13 PM PDT) + + + + + + | Component | Value | Ref Range | Performed | Pathologist | | | | | At | Signature | + + + + + + | Glucose, | 168 (H)Comment: Testing | 65 - 99 mg/dL | EXTERNAL | | | Fingerstick | performed at [facility];[address] | | LAB | | | | [address];[place], [place] | | | | | | [address] | | | | + + + + + + + + | Specimen | + + | | + + + +---------+ + + | Performing | Address | City/State/Zipcode | Phone Number | | Organization | | | | + +---------+ + + | EXTERNAL LAB | | | | + +---------+ + + POC Glucose (06/04/2018 12:12 PM PDT) + + + + + + | Component | Value | Ref Range | Performed | Pathologist | | | | | At | Signature | + + + + + + | Glucose, | 99Comment: Testing | 65 - 99 mg/dL | EXTERNAL | | | Fingerstick | performed at [facility];[address] | | LAB | | | | [address];[place] | | | | | | [address] | | | | + + + + + + + + | Specimen | + + | | + + + +---------+ + + | Performing | Address | City/State/Zipcode | Phone Number | | Organization | | | | + +---------+ + + | EXTERNAL LAB | | | | + +---------+ + + POC Glucose (06/04/2018 5:41 AM PDT) + + + + + + | Component | Value | Ref Range | Performed | Pathologist | | | | | At | Signature | + + + + + + | Glucose, | 91Comment: Testing | 65 - 99 mg/dL | EXTERNAL | | | Fingerstick | performed at [facility];[address] | | LAB | | | | [address];[place] | | | | | | [address] | | | | + + + + + + + + | Specimen | + + | | + + + +---------+ + + | Performing | Address | City/State/Zipcode | Phone Number | | Organization | | | | + +---------+ + + | EXTERNAL LAB | | | | + +---------+ + + Protime INR (06/04/2018 4:30 AM PDT) + + + + + + | Component | Value | Ref Range | Performed | Pathologist | | | | | At | Signature | + + + + + + | INR | 4.1Comment: REFERENCE | | EXTERNAL | | | | RANGE:0.9 - 1.2 | | LAB | | | | NON-ANTICOAGULATED2.0 | | | | | | - 3.0 ALL OTHER | | | | | | THERAPEUTIC | | | | | | INDICATIONS2.5 - 3.5 | | | | | | MECHANICAL HEART VALVES, | | | | | | RECURRENT OR SYSTEMIC | | | | | | EMBOLISMTesting | | | | | | performed at [facility];[address] | | | | | | [address] [facility];[place], [place] | | | | | | [address] | | | | + + + [...] + +---------+ + + External Lab: CBC (06/04/2018 4:30 AM PDT) + + +---- + + + | Component | Value | Ref Range | Performed | Pathologist | | | | | At | Signature | + + +---- + + + | WBC | 6.67 | 3.8 0 - 11.00 | EXTERNAL | | | | | K/u L | LAB | | + + +---- + + + | Non- | 4.18 (L) | 4.2 0 - 5.70 | EXTERNAL | | | Red Blood | | M/u L | LAB | | | Cells | | | | | | Counted | | | | | + + +---- + + + | Hemoglobin | 9.4 (L) | 13. 2 - 17.0 | EXTERNAL | | | | | g/d L | LAB | | + + +---- + + + | Hematocrit, | 29.3 (L) | 39. 0 - 50.0 % | EXTERNAL | | | POC | | | LAB | | + + +---- + + + | MCV | 70.1 (L) | 80. 0 - 100.0 fl | EXTERNAL | | | | | | LAB | | + + +---- + + + | MCH | 22.4 (L) | 27. 0 - 34.0 pg | EXTERNAL | | | | | | LAB | | + + +---- + + + | MCHC | 32.0 | 32. 0 - 35.5 | EXTERNAL | | | | | g/d L | LAB | | + + +---- + + + | RDW-CV | 54.3 (H) | 37 - 53 fl | EXTERNAL | | | | | | LAB | | + + +---- + + + | Platelet | 184 | 150 - 400 K/uL | EXTERNAL | | | Count | | | LAB | | | Plasma | | | | | + + +---- + + + | MPV | 9.4 | fl | EXTERNAL | | | | | | LAB | | + + +---- + + + | Differentia | AUTOMATED | | EXTERNAL | | | l Type | | | LAB | | + + +---- + + + | % Segmented | 61.97 | % | EXTERNAL | | | | | | LAB | | | Neutrophils | | | | | + + +---- + + + | % | 24.13 | % | EXTERNAL | | | Lymphocytes | | | LAB | | + + +---- + + + | % Monocytes | 5.57 | % | EXTERNAL | | | | | | LAB | | + + +---- + + + | % | 7.10 | % | EXTERNAL | | | Eosinophils | | | LAB | | + + +---- + + + | % Basophils | 1.23 | % | EXTERNAL | | | | | | LAB | | + + +---- + + + | Absolute | 4.14 | 1.9 0 - 7.40 | EXTERNAL | | | Segmented | | K/u L | LAB | | | Neutrophils | | | | | + + +---- + + + | Absolute | 1.61 | 1.0 0 - 3.90 | EXTERNAL | | | Lymphocytes | | K/u L | LAB | | + + +---- + + + | Absolute | 0.37 | 0.0 0 - 0.80 | EXTERNAL | | | Monocytes | | K/u L | LAB | | + + +---- + + + | Absolute | 0.47 | 0.0 0 - 0.50 | EXTERNAL | | | Eosinophils | | K/u L | LAB | | + + +---- + + + | Absolute | 0.08 | 0.0 0 - 0.10 | EXTERNAL | | | Basophils | | K/u L | LAB | | + + +---- + + + | RBC | 2+Comment: | | EXTERNAL | | | Morphology | HYPO2+MICRO2+ANISONORMAL | | LAB | | | | PLT MORPHTesting | | | | | | performed at [facility], [facility] | | | | | | [facility], | | | | | | [place] [address] | | | | | |ANISO | | | | | |NORMAL PLT MORPH | | | | | |Testing performed at [facility], [facility] [place] [address] | | | | | | | | | | + + +---- + + + + + | Specimen | + + | Blood specimen | | (specimen) | + + + +---------+ + + | Performing | Address | City/State/Zipcode | Phone Number | | Organization | | | | + +---------+ + + | EXTERNAL LAB | | | | + +---------+ + + Magnesium (06/04/2018 4:30 AM PDT) + + + + + + | Component | Value | Ref Range | Performed | Pathologist | | | | | At | Signature | + + + + + + | Magnesium | 1.9Comment: Testing | 1.7 - 2.4 mg/dL | EXTERNAL | | | | performed at [facility] | | LAB | | | | [address] [facility];[place], [place] | | | | | | [address] | | | | + + + + + + + + | Specimen | + + | Blood specimen | | (specimen) | + + + +---------+ + + | Performing | Address | City/State/Zipcode | Phone Number | | Organization | | | | + +---------+ + + | EXTERNAL LAB | | | | + +---------+ + + Basic Metabolic Panel (06/04/2018 4:30 AM PDT) + + + + + + | Component | Value | Ref Range | Performed | Pathologist | | | | | At | Signature | + + + + + + | Na | 140 | 135 - 145 | EXTERNAL | | | | | mmol/L | LAB | | + + + + + + | K | 4.6 | 3.5 - 4.9 | EXTERNAL | | | | | mmol/L | LAB | | + + + + + + | Cl | 105 | 99 - 109 mmol/L | EXTERNAL | | | | | | LAB | | + + + + + + | CO2 | 27 | 23 - 32 mmol/L | EXTERNAL | | | | | | LAB | | + + + + + + | Anion Gap | 13 | 5 - 20 mmol/L | EXTERNAL | | | | | | LAB | | + + + + + + | Glucose, | 87 | 65 - 99 mg/dL | EXTERNAL | | | Fasting | | | LAB | | + + + + + + | BUN | 14 | 8 - 25 mg/dL | EXTERNAL | | | | | | LAB | | + + + + + + | Creatinine | 0.81 | 0.70 - 1.30 | EXTERNAL | | | | | mg/dL | LAB | | + + + + + + | BUN/Creatin | 18 | | EXTERNAL | | | ine Ratio | | | LAB | | + + + + + + | Calcium | 7.9 (L) | 8.5 - 10.5 | EXTERNAL | | | | | mg/dL | LAB | | + + + + + + | Estimated | >60Comment: GFR <60: | mL/min/1.73m2 | EXTERNAL | | | GFR | CHRONIC KIDNEY DISEASE, | | LAB | | | | IF FOUND OVER A 3 MONTH | | | | | | PERIOD.GFR <15: KIDNEY | | | | | | FAILURE.FOR | | | | | | AMERICANS, MULTIPLY THE | | | | | | CALCULATED GFR BY | | | | | | 1.210.This eGFR is | | | | | | calculated using the | | | | | | MDRD IDMS traceable | | | | | | equation.Testing | | | | | | performed at [facility] | | | | | | [address];[place], [place] | | | | | | [address] | | | | + + + + + + + + | Specimen | + + | Blood specimen | | (specimen) | + + + +---------+ + + | Performing | Address | City/State/Zipcode | Phone Number | | Organization | | | | + +---------+ + + | EXTERNAL LAB | | | | + +---------+ + + POC Glucose (06/03/2018 9:16 PM PDT) + + + + + + | Component | Value | Ref Range | Performed | Pathologist | | | | | At | Signature | + + + + + + | Glucose, | 133 (H)Comment: Testing | 65 - 99 mg/dL | EXTERNAL | | | Fingerstick | performed at [facility];[address] | | LAB | | | | [address];[place] | | | | | | [address] | | | | + + + + + + + + | Specimen | + + | | + + + +---------+ + + | Performing | Address | City/State/Zipcode | Phone Number | | Organization | | | | + +---------+ + + | EXTERNAL LAB | | | | + +---------+ + + POC Glucose (06/03/2018 4:15 PM PDT) + + + + + + | Component | Value | Ref Range | Performed | Pathologist | | | | | At | Signature | + + + + + + | Glucose, | 179 (H)Comment: Testing | 65 - 99 mg/dL | EXTERNAL | | | Fingerstick | performed at [facility];[address] | | LAB | | | | [address];[place], [place] | | | | | | [address] | | | | + + + + + + + + | Specimen | + + | | + + + +---------+ + + | Performing | Address | City/State/Zipcode | Phone Number | | Organization | | | | + +---------+ + + | EXTERNAL LAB | | | | + +---------+ + + POC Glucose (06/03/2018 11:42 AM PDT) + + + + + + | Component | Value | Ref Range | Performed | Pathologist | | | | | At | Signature | + + + + + + | Glucose, | 131 (H)Comment: Testing | 65 - 99 mg/dL | EXTERNAL | | | Fingerstick | performed at [facility];[address] | | LAB | | | | [address] | | | | | | [address] | | | | + + + + + + + + | Specimen | + + | | + + + +---------+ + + | Performing | Address | City/State/Zipcode | Phone Number | | Organization | | | | + +---------+ + + | EXTERNAL LAB | | | | + +---------+ + + POC Glucose (06/03/2018 5:22 AM PDT) + + + + + + | Component | Value | Ref Range | Performed | Pathologist | | | | | At | Signature | + + + + + + | Glucose, | 117 (H)Comment: Testing | 65 - 99 mg/dL | EXTERNAL | | | Fingerstick | performed at [facility];[address] | | LAB | | | | [address];[place], [place] | | | | | | [address] | | | | + + + + + + + + | Specimen | + + | | + + + +---------+ + + | Performing | Address | City/State/Zipcode | Phone Number | | Organization | | | | + +---------+ + + | EXTERNAL LAB | | | | + +---------+ + + Protime INR (06/03/2018 5:11 AM PDT) + + + + + + | Component | Value | Ref Range | Performed | Pathologist | | | | | At | Signature | + + + + + + | INR | 2.3Comment: REFERENCE | | EXTERNAL | | | | RANGE:0.9 - 1.2 | | LAB | | | | NON-ANTICOAGULATED2.0 | | | | | | - 3.0 ALL OTHER | | | | | | THERAPEUTIC | | | | | | INDICATIONS2.5 - 3.5 | | | | | | MECHANICAL HEART VALVES, | | | | | | RECURRENT OR SYSTEMIC | | | | | | EMBOLISMTesting | | | | | | performed at [facility] | | | | | | [facility];[place], [place] | | | | | | [address] | | | | + + + + + + + + | Specimen | + + | Blood specimen | | (specimen) | + + + +---------+ + + | Performing | Address | City/State/Zipcode | Phone Number | | Organization | | | | + +---------+ + + | EXTERNAL LAB | | | | + +---------+ + + Magnesium (06/03/2018 5:11 AM PDT) + + + + + + | Component | Value | Ref Range | Performed | Pathologist | | | | | At | Signature | + + + + + + | Magnesium | 1.9Comment: Testing | 1.7 - 2.4 mg/dL | EXTERNAL | | | | performed at [facility];[address] | | LAB | | | | [address];[place], [place] | | | | | | [address] | | | | + + + + + + + + | Specimen | + + | Blood specimen | | (specimen) | + + + +---------+ + + | Performing | Address | City/State/Zipcode | Phone Number | | Organization | | | | + +---------+ + + | EXTERNAL LAB | | | | + +---------+ + + Basic Metabolic Panel (06/03/2018 5:11 AM PDT) + + + + + + | Component | Value | Ref Range | Performed | Pathologist | | | | | At | Signature | + + + + + + | Na | 137 | 135 - 145 | EXTERNAL | | | | | mmol/L | LAB | | + + + + + + | K | 4.4 | 3.5 - 4.9 | EXTERNAL | [...] + + + | Anion Gap | 12 | 5 - 20 mmol/L | EXTERNAL | | | | | | LAB | | + + + + + + | Glucose, | 109 (H) | 65 - 99 mg/dL | EXTERNAL | | | Fasting | | | LAB | | + + + + + + | BUN | 15 | 8 - 25 mg/dL | EXTERNAL | | | | | | LAB | | + + + + + + | Creatinine | 0.85 | 0.70 - 1.30 | EXTERNAL | | | | | mg/dL | LAB | | + + + + + + | BUN/Creatin | 18 | | EXTERNAL | | | ine Ratio | | | LAB | | + + + + + + | Calcium | 8.2 (L) | 8.5 - 10.5 | EXTERNAL | | | | | mg/dL | LAB | | + + + + + + | Estimated | >60Comment: GFR <60: | mL/min/1.73m2 | EXTERNAL | | | GFR | CHRONIC KIDNEY DISEASE, | | LAB | | | | IF FOUND OVER A 3 MONTH | | | | | | PERIOD.GFR <15: KIDNEY | | | | | | FAILURE.FOR | | | | | | AMERICANS, MULTIPLY THE | | | | | | CALCULATED GFR BY | | | | | | 1.210.This eGFR is | | | | | | calculated using the | | | | | | MDRD IDMS traceable | | | | | | equation.Testing | | | | | | performed at [facility];[address] | | | | | | [facility];[place], [place] | | | | | | [address] | | | | + + + + + + + + | Specimen | + + | Blood specimen | | (specimen) | + + + +---------+ + + | Performing | Address | City/State/Zipcode | Phone Number | | Organization | | | | + +---------+ + + | EXTERNAL LAB | | | | + +---------+ + + POC Glucose (06/02/2018 9:26 PM PDT) + + + + + + | Component | Value | Ref Range | Performed | Pathologist | | | | | At | Signature | + + + + + + | Glucose, | 212 (H)Comment: Testing | 65 - 99 mg/dL | EXTERNAL | | | Fingerstick | performed at [facility];[address] | | LAB | | | | [address];[place] | | | | | | [address] | | | | + + + + + + + + | Specimen | + + | | + + + +---------+ + + | Performing | Address | City/State/Zipcode | Phone Number | | Organization | | | | + +---------+ + + | EXTERNAL LAB | | | | + +---------+ + + POC Glucose (06/02/2018 3:49 PM PDT) + + + + + + | Component | Value | Ref Range | Performed | Pathologist | | | | | At | Signature | + + + + + + | Glucose, | 97Comment: Testing | 65 - 99 mg/dL | EXTERNAL | | | Fingerstick | performed at [facility];[address] | | LAB | | | | [address];[place], [place] | | | | | | [address] | | | | + + + + + + + + | Specimen | + + | | + + + +---------+ + + | Performing | Address | City/State/Zipcode | Phone Number | | Organization | | | | + +---------+ + + | EXTERNAL LAB | | | | + +---------+ + + POC Glucose (06/02/2018 11:20 AM PDT) + + + + + + | Component | Value | Ref Range | Performed | Pathologist | | | | | At | Signature | + + + + + + | Glucose, | 265 (H)Comment: Testing | 65 - 99 mg/dL | EXTERNAL | | | Fingerstick | performed at [facility];[address] | | LAB | | | | [address];[place], [place] | | | | | | [address] | | | | + + + + + + + + | Specimen | + + | | + + + +---------+ + + | Performing | Address | City/State/Zipcode | Phone Number | | Organization | | | | + +---------+ + + | EXTERNAL LAB | | | | + +---------+ + + POC Glucose (06/02/2018 5:06 AM PDT) + + + + + + | Component | Value | Ref Range | Performed | Pathologist | | | | | At | Signature | + + + + + + | Glucose, | 120 (H)Comment: Testing | 65 - 99 mg/dL | EXTERNAL | | | Fingerstick | performed at [facility];[address] | | LAB | | | | [address];[place] | | | | | | [address] | | | | + + + + + + + + | Specimen | + + | | + + + +---------+ + + | Performing | Address | City/State/Zipcode | Phone Number | | Organization | | | | + +---------+ + + | EXTERNAL LAB | | | | + +---------+ + + Sedimentation rate, automated (06/02/2018 4:38 AM PDT) + + + + + + | Component | Value | Ref Range | Performed | Pathologist | | | | | At | Signature | + + + + + + | Sed Rate | 68 (H)Comment: Testing | 0 - 20 mm/Hr | EXTERNAL | | | | performed at [facility], [address] | | LAB | | | | [address], | | | | | | [place] [address] | | | | + + + + + + + + | Specimen | + + | Blood specimen | | (specimen) | + + + +---------+ + + | Performing | Address | City/State/Zipcode | Phone Number | | Organization | | | | + +---------+ + + | EXTERNAL LAB | | | | + +---------+ + + Protime INR (06/02/2018 4:38 AM PDT) + + + + + + | Component | Value | Ref Range | Performed | Pathologist | | | | | At | Signature | + + + + + + | INR | 1.6Comment: REFERENCE | | EXTERNAL | | | | RANGE:0.9 - 1.2 | | LAB | | | | NON-ANTICOAGULATED2.0 | | | | | | - 3.0 ALL OTHER | | | | | | THERAPEUTIC | | | | | | INDICATIONS2.5 - 3.5 | | | | | | MECHANICAL HEART VALVES, | | | | | | RECURRENT OR SYSTEMIC | | | | | | EMBOLISMTesting | | | | | | performed at [facility];[address] | | | | | | [address];[place], [place] | | | | | | [address] | | | | + + + + + + + + | Specimen | + + | Blood specimen | | (specimen) | + + + +---------+ + + | Performing | Address | City/State/Zipcode | Phone Number | | Organization | | | | + +---------+ + + | EXTERNAL LAB | | | | + +---------+ + + External Lab: LILLIE (06/02/2018 4:38 AM PDT) + + + + + + | Component | Value | Ref Range | Performed | Pathologist | | | | | At | Signature | + + + + + + | WBC | 6.57 | 3.80 - 11.00 | EXTERNAL | | | | | K/uL | LAB | | + + + + + + | Non- | 4.11 (L) | 4.20 - 5.70 | EXTERNAL | | | Red Blood | | M/uL | LAB | | | Cells | | | | | | Counted | | | | | + + + + + + | Hemoglobin | 9.1 (L) | 13.2 - 17.0 | EXTERNAL | | | | | g/dL | LAB | | + + + + + + | Hematocrit, | 28.7 (L) | 39.0 - 50.0 % | EXTERNAL | | | POC | | | LAB | | + + + + + + | MCV | 69.9 (L) | 80.0 - 100.0 fl | EXTERNAL | | | | | | LAB | | + + + + + + | MCH | 22.2 (L) | 27.0 - 34.0 pg | EXTERNAL | | | | | | LAB | | + + + + + + | MCHC | 31.7 (L) | 32.0 - 35.5 | EXTERNAL | | | | | g/dL | LAB | | + + + + + + | RDW-CV | 54.7 (H) | 37 - 53 fl | EXTERNAL | | | | | | LAB | | + + + + + + | Platelet | 166 | 150 - 400 K/uL | EXTERNAL | | | Count | | | LAB | | | Plasma | | | | | + + + + + + | MPV | 9.5 | fl | EXTERNAL | | | | | | LAB | | + + + + + + | Differentia | AUTOMATED | | EXTERNAL | | | l Type | | | LAB | | + + + + + + | % Segmented | 66.52 | % | EXTERNAL | | | | | | LAB | | | Neutrophils | | | | | + + + + + + | % | 20.50 | % | EXTERNAL | | | Lymphocytes | | | LAB | | + + + + + + | % Monocytes | 6.35 | % | EXTERNAL | | | | | | LAB | | + + + + + + | % | 5.36 | % | EXTERNAL | | | Eosinophils | | | LAB | | + + + + + + | % Basophils | 1.27 | % | EXTERNAL | | | | | | LAB | | + + + + + + | Absolute | 4.37 | 1.90 - 7.40 | EXTERNAL | | | Segmented | | K/uL | LAB | | | Neutrophils | | | | | + + + + + + | Absolute | 1.35 | 1.00 - 3.90 | EXTERNAL | | | Lymphocytes | | K/uL | LAB | | + + + + + + | Absolute | 0.42 | 0.00 - 0.80 | EXTERNAL | | | Monocytes | | K/uL | LAB | | + + + + + + | Absolute | 0.35 | 0.00 - 0.50 | EXTERNAL | | | Eosinophils | | K/uL | LAB | | + + + + + + | Absolute | 0.08 | 0.00 - 0.10 | EXTERNAL | | | Basophils | | K/uL | LAB | | + + + + + + | RBC | 2+ | | EXTERNAL | | | Morphology | Comment: | | LAB | | | | ANISO | | | | | | 3+ | | | | | | HYPO | | | | | | 2+ | | | | | | MICRO | | | | | | NORMAL PLT MORPH | | | | | | | | | | + + + + + + | Platelet | ADEQUATEComment: Testing | | EXTERNAL | | | Estimate | performed at [facility], [address] | [address] | | | | [address], | | | | | | [place] [address] | | | | + + + + + + + + | Specimen | + + | Blood specimen | | (specimen) | + + + +---------+ + + | Performing | Address | City/State/Zipcode | Phone Number | | Organization | | | | + +---------+ + + | EXTERNAL LAB | | | | + +---------+ + + C-Reactive Protein (06/02/2018 4:38 AM PDT) + + + + + + | Component | Value | Ref Range | Performed | Pathologist | | | | | At | Signature | + + + + + + | CRP | 0.8 (H)Comment: Testing | mg/dL | EXTERNAL | | | | performed at [facility], [address] | | LAB | | | | [address], | | | | | | [place] [address] | | | | + + + + + + + + | Specimen | + + | Blood specimen | | (specimen) | + + + +---------+ + + | Performing | Address | City/State/Zipcode | Phone Number | | Organization | | | | + +---------+ + + | EXTERNAL LAB | | | | + +---------+ + + Magnesium (06/02/2018 4:38 AM PDT) + + + + + + | Component | Value | Ref Range | Performed | Pathologist | | | | | At | Signature | + + + + + + | Magnesium | 2.1Comment: Testing | 1.7 - 2.4 mg/dL | EXTERNAL | | | | performed at [facility], [address] | | LAB | | | | [address], | | | | | | [place] [address] | | | | + + + [...] + +---------+ + + Comprehensive Metabolic Panel (06/02/2018 4:38 AM PDT) + + + + + + | Component | Value | Ref Range | Performed | Pathologist | | | | | At | Signature | + + + + + + | Na | 139 | 135 - 145 | EXTERNAL | | | | | mmol/L | LAB | | + + + + + + | K | 4.5 | 3.5 - 4.9 | EXTERNAL | | | | | mmol/L | LAB | | + + + + + + | Cl | 103 | 99 - 109 mmol/L | EXTERNAL | | | | | | LAB | | + + + + + + | CO2 | 26 | 23 - 32 mmol/L | EXTERNAL | | | | | | LAB | | + + + + + + | Anion Gap | 15 | 5 - 20 mmol/L | EXTERNAL | | | | | | LAB | | + + + + + + | Glucose, | 105 (H) | 65 - 99 mg/dL | EXTERNAL | | | Fasting | | | LAB | | + + + + + + | BUN | 12 | 8 - 25 mg/dL | EXTERNAL | | | | | | LAB | | + + + + + + | Creatinine | 0.9 | 0.70 - 1.30 | EXTERNAL | | | | | mg/dL | LAB | | + + + + + + | BUN/Creatin | 13 | | EXTERNAL | | | ine Ratio | | | LAB | | + + + + + + | Calcium | 7.9 (L) | 8.5 - 10.5 | EXTERNAL | | | | | mg/dL | LAB | | + + + + + + | Protein, | 6.2 (L) | 6.3 - 8.2 g/dL | EXTERNAL | | | Total | | | LAB | | + + + + + + | Albumin | 2.3 (L) | 3.6 - 5.0 g/dL | EXTERNAL | | | | | | LAB | | + + + + + + | Globulin | 3.9 | 1.3 - 4.9 g/dL | EXTERNAL | | | | | | LAB | | + + + + + + | A/G Ratio | 0.6 (L) | 1.0 - 2.4 | EXTERNAL | | | | | | LAB | | + + + + + + | Bilirubin | 0.2 | 0.1 - 1.5 mg/dL | EXTERNAL | | | Total | | | LAB | | + + + + + + | ALP, | 90 | 35 - 115 U/L | EXTERNAL | | | External | | | LAB | | + + + + + + | AST | 13 | 10 - 45 U/L | EXTERNAL | | | | | | LAB | | + + + + + + | ALT | 12 | 10 - 65 U/L | EXTERNAL | | | | | | LAB | | + + + + + + | Estimated | >60Comment: GFR <60: | mL/min/1.73m2 | EXTERNAL | | | GFR | CHRONIC KIDNEY DISEASE, | | LAB | | | | IF FOUND OVER A 3 MONTH | | | | | | PERIOD.GFR <15: KIDNEY | | | | | | FAILURE.FOR | | | | | | AMERICANS, MULTIPLY THE | | | | | | CALCULATED GFR BY | | | | | | 1.210.This eGFR is | | | | | | calculated using the | | | | | | MDRD IDMS traceable | | | | | | equation.Testing | | | | | | performed at [facility], [address] | | | | | [facility], | | | | | | [place] [address] | | | | + + + + + + + + | Specimen | + + | Blood specimen | | (specimen) | + + + +---------+ + + | Performing | Address | City/State/Zipcode | Phone Number | | Organization | | | | + +---------+ + + | EXTERNAL LAB | | | | + +---------+ + + POC Glucose (06/01/2018 9:07 PM PDT) + + + + + + | Component | Value | Ref Range | Performed | Pathologist | | | | | At | Signature | + + + + + + | Glucose, | 166 (H)Comment: Testing | 65 - 99 mg/dL | EXTERNAL | | | Fingerstick | performed at [facility];[address] | | LAB | | | | [address];[place] | | | | | | [address] | | | | + + + + + + + + | Specimen | + + | | + + + +---------+ + + | Performing | Address | City/State/Zipcode | Phone Number | | Organization | | | | + +---------+ + + | EXTERNAL LAB | | | | + +---------+ + + POC Glucose (06/01/2018 4:15 PM PDT) + + + + + + | Component | Value | Ref Range | Performed | Pathologist | | | | | At | Signature | + + + + + + | Glucose, | 154 (H)Comment: Testing | 65 - 99 mg/dL | EXTERNAL | | | Fingerstick | performed at [facility];[address] | | LAB | | | | [address];[place], [place] | | | | | | [address] | | | | + + + + + + + + | Specimen | + + | | + + + +---------+ + + | Performing | Address | City/State/Zipcode | Phone Number | | Organization | | | | + +---------+ + + | EXTERNAL LAB | | | | + +---------+ + + POC Glucose (06/01/2018 11:07 AM PDT) + + + + + + | Component | Value | Ref Range | Performed | Pathologist | | | | | At | Signature | + + + + + + | Glucose, | 170 (H)Comment: Testing | 65 - 99 mg/dL | EXTERNAL | | | Fingerstick | performed at [facility] | | LAB | | | | [address];[place], [place] | | | | | | [address] | | | | + + + + + + + + | Specimen | + + | | + + + +---------+ + + | Performing | Address | City/State/Zipcode | Phone Number | | Organization | | | | + +---------+ + + | EXTERNAL LAB | | | | + +---------+ + + Protime INR (06/01/2018 4:45 AM PDT) + + + + + + | Component | Value | Ref Range | Performed | Pathologist | | | | | At | Signature | + + + + + + | INR | 1.4Comment: REFERENCE | | EXTERNAL | | | | RANGE:0.9 - 1.2 | | LAB | | | | NON-ANTICOAGULATED2.0 | | | | | | - 3.0 ALL OTHER | | | | | | THERAPEUTIC | | | | | | INDICATIONS2.5 - 3.5 | | | | | | MECHANICAL HEART VALVES, | | | | | | RECURRENT OR SYSTEMIC | | | | | | EMBOLISMTesting | | | | | | performed at [facility];[address] | | | | | | [address];[place] | | | | | | [address] | | | | + + + + + + + + | Specimen | + + | Blood specimen | | (specimen) | + + + +---------+ + + | Performing | Address | City/State/Zipcode | Phone Number | | Organization | | | | + +---------+ + + | EXTERNAL LAB | | | | + +---------+ + + Magnesium (06/01/2018 4:45 AM PDT) + + + + + + | Component | Value | Ref Range | Performed | Pathologist | | | | | At | Signature | + + + + + + | Magnesium | 2.1Comment: Testing | 1.7 - 2.4 mg/dL | EXTERNAL | | | | performed at [facility];[address] | | LAB | | | | [address];[place], [place] | | | | | | [address] | | | | + + + + + + + + | Specimen | + + | Blood specimen | | (specimen) | + + + +---------+ + + | Performing | Address | City/State/Zipcode | Phone Number | | Organization | | | | + +---------+ + + | EXTERNAL LAB | | | | + +---------+ + + Basic Metabolic Panel (06/01/2018 4:45 AM PDT) + + + + + + | Component | Value | Ref Range | Performed | Pathologist | | | | | At | Signature | + + + + + + | Na | 138 | 135 - 145 | EXTERNAL | | | | | mmol/L | LAB | | + + + + + + | K | 4.2 | 3.5 - 4.9 | EXTERNAL | | | | | mmol/L | LAB | | + + + + + + | Cl | 102 | 99 - 109 mmol/L | EXTERNAL | | | | | | LAB | | + + + + + + | CO2 | 29 | 23 - 32 mmol/L | EXTERNAL | | | | | | LAB | | + + + + + + | Anion Gap | 12 | 5 - 20 mmol/L | EXTERNAL | | | | | | LAB | | + + + + + + | Glucose, | 119 (H) | 65 - 99 mg/dL | EXTERNAL | | | Fasting | | | LAB | | + + + + + + | BUN | 15 | 8 - 25 mg/dL | EXTERNAL | | | | | | LAB | | + + + + + + | Creatinine | 0.89 | 0.70 - 1.30 | EXTERNAL | | | | | mg/dL | LAB | | + + + + + + | BUN/Creatin | 17 | | EXTERNAL | | | ine Ratio | | | LAB | | + + + + + + | Calcium | 7.9 (L) | 8.5 - 10.5 | EXTERNAL | | | | | mg/dL | LAB | | + + + + + + | Estimated | >60Comment: GFR <60: | mL/min/1.73m2 | EXTERNAL | | | GFR | CHRONIC KIDNEY DISEASE, | | LAB | | | | IF FOUND OVER A 3 MONTH | | | | | | PERIOD.GFR <15: KIDNEY | | | | | | FAILURE.FOR | | | | | | AMERICANS, MULTIPLY THE | | | | | | CALCULATED GFR BY | | | | | | 1.210.This eGFR is | | | | | | calculated using the | | | | | | MDRD IDMS traceable | | | | | | equation.Testing | | | | | | performed at [facility];[address] | | | | | | [address] [facility];[place], [place] | | | | | | [address] | | | | + + + + + + + + | Specimen | + + | Blood specimen | | (specimen) | + + + +---------+ + + | Performing | Address | City/State/Zipcode | Phone Number | | Organization | | | | + +---------+ + + | EXTERNAL LAB | | | | + +---------+ + + POC Glucose (06/01/2018 4:34 AM PDT) + + + + + + | Component | Value | Ref Range | Performed | Pathologist | | | | | At | Signature | + + + + + + | Glucose, | 124 (H)Comment: Testing | 65 - 99 mg/dL | EXTERNAL | | | Fingerstick | performed at [facility];[address] | | LAB | | | | [address];[place], [place] | | | | | | [address] | | | | + + + + + + + + | Specimen | + + | | + + + +---------+ + + | Performing | Address | City/State/Zipcode | Phone Number | | Organization | | | | + +---------+ + + | EXTERNAL LAB | | | | + +---------+ + + POC Glucose (05/31/2018 9:10 PM PDT) + + + + + + | Component | Value | Ref Range | Performed | Pathologist | | | | | At | Signature | + + + + + + | Glucose, | 224 (H)Comment: Testing | 65 - 99 mg/dL | EXTERNAL | | | Fingerstick | performed at [facility];[address] | | LAB | | | | [address];[place], [place] | | | | | | [address] | | | | + + + + + + + + | Specimen | + + | | + + + +---------+ + + | Performing | Address | City/State/Zipcode | Phone Number | | Organization | | | | + +---------+ + + | EXTERNAL LAB | | | | + +---------+ + + POC Glucose (05/31/2018 3:52 PM PDT) + + + + + + | Component | Value | Ref Range | Performed | Pathologist | | | | | At | Signature | + + + + + + | Glucose, | 108 (H)Comment: Testing | 65 - 99 mg/dL | EXTERNAL | | | Fingerstick | performed at [facility];[address] | | LAB | | | | [address];[place], [place] | | | | | | [address] | | | | + + + + + + + + | Specimen | + + | | + + + +---------+ + + | Performing | Address | City/State/Zipcode | Phone Number | | Organization | | | | + +---------+ + + | EXTERNAL LAB | | | | + +---------+ + + POC Glucose (05/31/2018 11:20 AM PDT) + + + + + + | Component | Value | Ref Range | Performed | Pathologist | | | | | At | Signature | + + + + + + | Glucose, | 203 (H)Comment: Testing | 65 - 99 mg/dL | EXTERNAL | | | Fingerstick | performed at [facility];[address] | | LAB | | | | [address];[place] | | | | | | [address] | | | | + + + + + + + + | Specimen | + + | | + + + +---------+ + + | Performing | Address | City/State/Zipcode | Phone Number | | Organization | | | | + +---------+ + + | EXTERNAL LAB | | | | + +---------+ + + POC Glucose (05/31/2018 5:18 AM PDT) + + + + + + | Component | Value | Ref Range | Performed | Pathologist | | | | | At | Signature | + + + + + + | Glucose, | 113 (H)Comment: Testing | 65 - 99 mg/dL | EXTERNAL | | | Fingerstick | performed at [facility];[address] | | LAB | | | | [address];[place], [place] | | | | | | [address] | | | | + + + + + + + + | Specimen | + + | | + + + +---------+ + + | Performing | Address | City/State/Zipcode | Phone Number | | Organization | | | | + +---------+ + + | EXTERNAL LAB | | | | + +---------+ + + CBC no Differential (05/31/2018 4:19 AM PDT) + + + + + + | Component | Value | Ref Range | Performed | Pathologist | | | | | At | Signature | + + + + + + | WBC | 7.58 | 3.80 - 11.00 | EXTERNAL | | | | | K/uL | LAB | | + + + + + + | Non- | 3.97 (L) | 4.20 - 5.70 | EXTERNAL | | | Red Blood | | M/uL | LAB | | | Cells | | | | | | Counted | | | | | + + + + + + | Hemoglobin | 8.7 (L) | 13.2 - 17.0 | EXTERNAL | | | | | g/dL | LAB | | + + + + + + | Hematocrit, | 27.9 (L) | 39.0 - 50.0 % | EXTERNAL | | | POC | | | LAB | | + + + + + + | MCV | 70.3 (L) | 80.0 - 100.0 fl | EXTERNAL | | | | | | LAB | | + + + + + + | MCH | 22.0 (L) | 27.0 - 34.0 pg | EXTERNAL | | | | | | LAB | | + + + + + + | MCHC | 31.3 (L) | 32.0 - 35.5 | EXTERNAL | | | | | g/dL | LAB | | + + + + + + | RDW-CV | 56.4 (H) | 37 - 53 fl | EXTERNAL | | | | | | LAB | | + + + + + + | Platelet | 137 (L) | 150 - 400 K/uL | EXTERNAL | | | Count | | | LAB | | | Plasma | | | | | + + + + + + | MPV | 8.7Comment: Testing | fl | EXTERNAL | | | | performed at [facility] | | LAB | | | | [address];[place], [place] | | | | | | [address] | | | | + + + + + + + + | Specimen | + + | Blood specimen | | (specimen) | + + + +---------+ + + | Performing | Address | City/State/Zipcode | Phone Number | | Organization | | | | + +---------+ + + | EXTERNAL LAB | | | | + +---------+ + + Protime INR (05/31/2018 4:19 AM PDT) + + + + + + | Component | Value | Ref Range | Performed | Pathologist | | | | | At | Signature | + + + + + + | INR | 1.4Comment: REFERENCE | | EXTERNAL | | | | RANGE:0.9 - 1.2 | | LAB | | | | NON-ANTICOAGULATED2.0 | | | | | | - 3.0 ALL OTHER | | | | | | THERAPEUTIC | | | | | | INDICATIONS2.5 - 3.5 | | | | | | MECHANICAL HEART VALVES, | | | | | | RECURRENT OR SYSTEMIC | | | | | | EMBOLISMTesting | | | | | | performed at [facility] | | | | | | [address];[place], [place] | | | | | | [address] | | | | + + + + + + + + | Specimen | + + | Blood specimen | | (specimen) | + + + +---------+ + + | Performing | Address | City/State/Zipcode | Phone Number | | Organization | | | | + +---------+ + + | EXTERNAL LAB | | | | + +---------+ + + Magnesium (05/31/2018 4:19 AM PDT) + + + + + + | Component | Value | Ref Range | Performed | Pathologist | | | | | At | Signature | + + + + + + | Magnesium | 2.2Comment: Testing | 1.7 - 2.4 mg/dL | EXTERNAL | | | | performed at [facility];[address] | | LAB | | | | [address];[place], [place] | | | | | | [address] | | | | + + + + + + + + | Specimen | + + | Blood specimen | | (specimen) | + + + +---------+ + + | Performing | Address | City/State/Zipcode | Phone Number | | Organization | | | | + +---------+ + + | EXTERNAL LAB | | | | + +---------+ + + Basic Metabolic Panel (05/31/2018 4:19 AM PDT) + + + + + + | Component | Value | Ref Range | Performed | Pathologist | | | | | At | Signature | + + + + + + | Na | 135 | 135 - 145 | EXTERNAL | | | | | mmol/L | LAB | | + + + + + + | K | 4.2 | 3.5 - 4.9 | EXTERNAL | | | | | mmol/L | LAB | | + + + + + + | Cl | 98 (L) | 99 - 109 mmol/L | EXTERNAL | | | | | | LAB | | + + + + + + | CO2 | 31 | 23 - 32 mmol/L | EXTERNAL | | | | | | LAB | | + + + + + + | Anion Gap | 10 | 5 - 20 mmol/L | EXTERNAL | | | | | | LAB | | + + + + + + | Glucose, | 132 (H) | 65 - 99 mg/dL | EXTERNAL | | | Fasting | | | LAB | | + + + + + + | BUN | 14 | 8 - 25 mg/dL | EXTERNAL | | | | | | LAB | | + + + + + + | Creatinine | 0.99 | 0.70 - 1.30 | EXTERNAL | | | | | mg/dL | LAB | | + + + + + + | BUN/Creatin | 14 | | EXTERNAL | | | ine Ratio | | | LAB | | + + + + + + | Calcium | 8.0 (L) | 8.5 - 10.5 | EXTERNAL | | | | | mg/dL | LAB | | + + + + + + | Estimated | >60Comment: GFR <60: | mL/min/1.73m2 | EXTERNAL | | | GFR | CHRONIC KIDNEY DISEASE, | | LAB | | | | IF FOUND OVER A 3 MONTH | | | | | | PERIOD.GFR <15: KIDNEY | | | | | | FAILURE.FOR | | | | | | AMERICANS, MULTIPLY THE | | | | | | CALCULATED GFR BY | | | | | | 1.210.This eGFR is | | | | | | calculated using the | | | | | | MDRD IDMS traceable | | | | | | equation.Testing | | | | | | performed at [facility];[address] | | | | | | [facility];[place], [place] | | | | | | [address] | | | | + + + + + + + + | Specimen | + + | Blood specimen | | (specimen) | + + + +---------+ + + | Performing | Address | City/State/Zipcode | Phone Number | | Organization | | | | + +---------+ + + | EXTERNAL LAB | | | | + +---------+ + + POC Glucose (05/30/2018 8:58 PM PDT) + + + + + + | Component | Value | Ref Range | Performed | Pathologist | | | | | At | Signature | + + + + + + | Glucose, | 151 (H)Comment: Testing | 65 - 99 mg/dL | EXTERNAL | | | Fingerstick | performed at [facility];[address] | | LAB | | | | [address];[place], [place] | | | | | | [address] | | | | + + + + + + + + | Specimen | + + | | + + + +---------+ + + | Performing | Address | City/State/Zipcode | Phone Number | | Organization | | | | + +---------+ + + | EXTERNAL LAB | | | | + +---------+ + + POC Glucose (05/30/2018 4:44 PM PDT) + + + + + + | Component | Value | Ref Range | Performed | Pathologist | | | | | At | Signature | + + + + + + | Glucose, | 151 (H)Comment: Testing | 65 - 99 mg/dL | EXTERNAL | | | Fingerstick | performed at [facility] | | LAB | | | | [address];[place], [place] | | | | | | [address] | | | | + + + + + + + + | Specimen | + + | | + + + +---------+ + + | Performing | Address | City/State/Zipcode | Phone Number | | Organization | | | | + +---------+ + + | EXTERNAL LAB | | | | + +---------+ + + POC Glucose (05/30/2018 11:02 AM PDT) + + + + + + | Component | Value | Ref Range | Performed | Pathologist | | | | | At | Signature | + + + + + + | Glucose, | 155 (H)Comment: Testing | 65 - 99 mg/dL | EXTERNAL | | | Fingerstick | performed at [facility];[address] | | LAB | | | | [address];[place] | | | | | | [address] | | | | + + + + + + + + | Specimen | + + | | + + + +---------+ + + | Performing | Address | City/State/Zipcode | Phone Number | | Organization | | | | + +---------+ + + | EXTERNAL LAB | | | | + +---------+ + + CBC no Differential (05/30/2018 5:45 AM PDT) + + + + + + | Component | Value | Ref Range | Performed | Pathologist | | | | | At | Signature | + + + + + + | WBC | 7.46 | 3.80 - 11.00 | EXTERNAL | | | | | K/uL | LAB | | + + + + + + | Non- | 4.25 | 4.20 - 5.70 | EXTERNAL | | | Red Blood | | M/uL | LAB | | | Cells | | | | | | Counted | | | | | + + + + + + | Hemoglobin | 9.4 (L) | 13.2 - 17.0 | EXTERNAL | | | | | g/dL | LAB | | + + + + + + | Hematocrit, | 29.9 (L) | 39.0 - 50.0 % | EXTERNAL | | | POC | | | LAB | | + + + + + + | MCV | 70.4 (L) | 80.0 - 100.0 fl | EXTERNAL | | | | | | LAB | | + + + + + + | MCH | 22.2 (L) | 27.0 - 34.0 pg | EXTERNAL | | | | | | LAB | | + + + + + + | MCHC | 31.5 (L) | 32.0 - 35.5 | EXTERNAL | | | | | g/dL | LAB | | + + + + + + | RDW-CV | 59.1 (H) | 37 - 53 fl | EXTERNAL | | | | | | LAB | | + + + + + + | Platelet | 155 | 150 - 400 K/uL | EXTERNAL | | | Count | | | LAB | | | Plasma | | | | | + + + + + + | MPV | 9.3Comment: Testing | fl | EXTERNAL | | | | performed at [facility], [address] | | LAB | | | | [address], | | | | | | [place] [address] | | | | + + + + + + + + | Specimen | + + | Blood specimen | | (specimen) | + + + +---------+ + + | Performing | Address | City/State/Zipcode | Phone Number | | Organization | | | | + +---------+ + + | EXTERNAL LAB | | | | + +---------+ + + Juan Carlosime INR (05/30/2018 5:45 AM PDT) + + + + + + | Component | Value | Ref Range | Performed | Pathologist | | | | | At | Signature | + + + + + + | INR | 1.6Comment: REFERENCE | | EXTERNAL | | | | RANGE:0.9 - 1.2 | | LAB | | | | NON-ANTICOAGULATED2.0 | | | | | | - 3.0 ALL OTHER | | | | | | THERAPEUTIC | | | | | | INDICATIONS2.5 - 3.5 | | | | | | MECHANICAL HEART VALVES, | | | | | | RECURRENT OR SYSTEMIC | | | | | | EMBOLISMTesting | | | | | | performed at [facility];[address] | | | | | | [facility];[place], [place] | | | | | | [address] | | | | + + + + + + + + | Specimen | + + | Blood specimen | | (specimen) | + + + +---------+ + + | Performing | Address | City/State/Zipcode | Phone Number | | Organization | | | | + +---------+ + + | EXTERNAL LAB | | | | + +---------+ + + Magnesium (05/30/2018 5:45 AM PDT) + + + + + + | Component | Value | Ref Range | Performed | Pathologist | | | | | At | Signature | + + + + + + | Magnesium | 2.3Comment: Testing | 1.7 - 2.4 mg/dL | EXTERNAL | | | | performed at [facility];[address] | | LAB | | | | [address];[place] | | | | | | [address] | | | | + + + + + + + + | Specimen | + + | Blood specimen | | (specimen) | + + + +---------+ + + | Performing | Address | City/State/Zipcode | Phone Number | | Organization | | | | + +---------+ + + | EXTERNAL LAB | | | | + +---------+ + + Basic Metabolic Panel (05/30/2018 5:45 AM PDT) + + + + + + | Component | Value | Ref Range | Performed | Pathologist | | | | | At | Signature | + + + + + + | Na | 136 | 135 - 145 | EXTERNAL | | | | | mmol/L | LAB | | + + + + + + | K | 4.5 | 3.5 - 4.9 | EXTERNAL | | | | | mmol/L | LAB | | + + + + + + | Cl | 100 | 99 - 109 mmol/L | EXTERNAL | | | | | | LAB | | + + + + + + | CO2 | 29 | 23 - 32 mmol/L | EXTERNAL | | | | | | LAB | | + + + + + + | Anion Gap | 11 | 5 - 20 mmol/L | EXTERNAL | | | | | | LAB | | + + + + + + | Glucose, | 108 (H) | 65 - 99 mg/dL | EXTERNAL | | | Fasting | | | LAB | | + + + + + + | BUN | 13 | 8 - 25 mg/dL | EXTERNAL | | | | | | LAB | | + + + + + + | Creatinine | 0.95 | 0.70 - 1.30 | EXTERNAL | | | | | mg/dL | LAB | | + + + + + + | BUN/Creatin | 13 | | EXTERNAL | | | ine Ratio | | | LAB | | + + + + + + | Calcium | 8.2 (L) | 8.5 - 10.5 | EXTERNAL | | | | | mg/dL | LAB | | + + + + + + | Estimated | >60Comment: GFR <60: | mL/min/1.73m2 | EXTERNAL | | | GFR | CHRONIC KIDNEY DISEASE, | | LAB | | | | IF FOUND OVER A 3 MONTH | | | | | | PERIOD.GFR <15: KIDNEY | | | | | | FAILURE.FOR | | | | | | AMERICANS, MULTIPLY THE | | | | | | CALCULATED GFR BY | | | | | | 1.210.This eGFR is | | | | | | calculated using the | | | | | | MDRD IDLA traceable | | | | | | equation.Testing | | | | | | performed at [facility];[address] | | | | | | [facility];[place], [place] | | | | | | [address] | | | | + + + + + + + + | Specimen | + + | Blood specimen | | (specimen) | + + + +---------+ + + | Performing | Address | City/State/Zipcode | Phone Number | | Organization | | | | + +---------+ + + | EXTERNAL LAB | | | | + +---------+ + + POC Glucose (05/30/2018 5:43 AM PDT) + + + + + + | Component | Value | Ref Range | Performed | Pathologist | | | | | At | Signature | + + + + + + | Glucose, | 130 (H)Comment: Testing | 65 - 99 mg/dL | EXTERNAL | | | Fingerstick | performed at [facility];[address] | | LAB | | | | [address];[place] | | | | | | [address] | | | | + + + + + + + + | Specimen | + + | | + + + +---------+ + + | Performing | Address | City/State/Zipcode | Phone Number | | Organization | | | | + +---------+ + + | EXTERNAL LAB | | | | + +---------+ + + POC Glucose (05/29/2018 9:15 PM PDT) + + + + + + | Component | Value | Ref Range | Performed | Pathologist | | | | | At | Signature | + + + + + + | Glucose, | 226 (H)Comment: Testing | 65 - 99 mg/dL | EXTERNAL | | | Fingerstick | performed at [facility];[address] | | LAB | | | | [address];[place] | | | | | | [address] | | | | + + + + + + + + | Specimen | + + | | + + + +---------+ + + | Performing | Address | City/State/Zipcode | Phone Number | | Organization | | | | + +---------+ + + | EXTERNAL LAB | | | | + +---------+ + + POC Glucose (05/29/2018 4:40 PM PDT) + + + + + + | Component | Value | Ref Range | Performed | Pathologist | | | | | At | Signature | + + + + + + | Glucose, | 103 (H)Comment: Testing | 65 - 99 mg/dL | EXTERNAL | | | Fingerstick | performed at [facility];[address] | | LAB | | | | [address];[place] | | | | | | [address] | | | | + + + + + + + + | Specimen | + + | | + + + +---------+ + + | Performing | Address | City/State/Zipcode | Phone Number | | Organization | | | | + +---------+ + + | EXTERNAL LAB | | | | + +---------+ + + POC Glucose (05/29/2018 3:17 PM PDT) + + + + + + | Component | Value | Ref Range | Performed | Pathologist | | | | | At | Signature | + + + + + + | Glucose, | 112 (H)Comment: Testing | 65 - 99 mg/dL | EXTERNAL | | | Fingerstick | performed at [facility];[address] | | LAB | | | | [address];[place], [place] | | | | | | [address] | | | | + + + + + + + + | Specimen | + + | | + + + +---------+ + + | Performing | Address | City/State/Zipcode | Phone Number | | Organization | | | | + +---------+ + + | EXTERNAL LAB | | | | + +---------+ + + POC Glucose (05/29/2018 11:15 AM PDT) + + + + + + | Component | Value | Ref Range | Performed | Pathologist | | | | | At | Signature | + + + + + + | Glucose, | 142 (H)Comment: Testing | 65 - 99 mg/dL | EXTERNAL | | | Fingerstick | performed at [facility];[address] | | LAB | | | | [address] | | | | | | [address] | | | | + + + + + + + + | Specimen | + + | | + + + +---------+ + + | Performing | Address | City/State/Zipcode | Phone Number | | Organization | | | | + +---------+ + + | EXTERNAL LAB | | | | + +---------+ + + CBC no Differential (05/29/2018 5:33 AM PDT) + + + + + + | Component | Value | Ref Range | Performed | Pathologist | | | | | At | Signature | + + + + + + | WBC | 7.33 | 3.80 - 11.00 | EXTERNAL | | | | | K/uL | LAB | | + + + + + + | Non- | 4.17 (L) | 4.20 - 5.70 | EXTERNAL | | | Red Blood | | M/uL | LAB | | | Cells | | | | | | Counted | | | | | + + + + + + | Hemoglobin | 9.3 (L) | 13.2 - 17.0 | EXTERNAL | | | | | g/dL | LAB | | + + + + + + | Hematocrit, | 29.1 (L) | 39.0 - 50.0 % | EXTERNAL | | | POC | | | LAB | | + + + + + + | MCV | 69.8 (L) | 80.0 - 100.0 fl | EXTERNAL | | | | | | LAB | | + + + + + + | MCH | 22.4 (L) | 27.0 - 34.0 pg | EXTERNAL | | | | | | LAB | | + + + + + + | MCHC | 32.0 | 32.0 - 35.5 | EXTERNAL | | | | | g/dL | LAB | | + + + + + + | RDW-CV | 56.0 (H) | 37 - 53 fl | EXTERNAL | | | | | | LAB | | + + + + + + | Platelet | 146 (L) | 150 - 400 K/uL | EXTERNAL | | | Count | | | LAB | | | Plasma | | | | | + + + + + + | MPV | 8.8Comment: Testing | fl | EXTERNAL | | | | performed at [facility], [address] | LAB | | | | [address], | | | | | | [place] [address] | | | | + + + + + + + + | Specimen | + + | Blood specimen | | (specimen) | + + + +---------+ + + | Performing | Address | City/State/Zipcode | Phone Number | | Organization | | | | + +---------+ + + | EXTERNAL LAB | | | | + +---------+ + + Protime INR (05/29/2018 5:33 AM PDT) + + + + + + | Component | Value | Ref Range | Performed | Pathologist | | | | | At | Signature | + + + + + + | INR | 2.5Comment: REFERENCE | | EXTERNAL | | | | RANGE:0.9 - 1.2 | | LAB | | | | NON-ANTICOAGULATED2.0 | | | | | | - 3.0 ALL OTHER | | | | | | THERAPEUTIC | | | | | | INDICATIONS2.5 - 3.5 | | | | | | MECHANICAL HEART VALVES, | | | | | | RECURRENT OR SYSTEMIC | | | | | | EMBOLISMTesting | | | | | | performed at [facility] | | | | | | [address];[place], [place] | | | | | | [address] | | | | + + + + + + + + | Specimen | + + | Blood specimen | | (specimen) | + + + +---------+ + + | Performing | Address | City/State/Zipcode | Phone Number | | Organization | | | | + +---------+ + + | EXTERNAL LAB | | | | + +---------+ + + Magnesium (05/29/2018 5:33 AM PDT) + + + + + + | Component | Value | Ref Range | Performed | Pathologist | | | | | At | Signature | + + + + + + | Magnesium | 2.2Comment: Testing | 1.7 - 2.4 mg/dL | EXTERNAL | | | | performed at [facility];[address] | | LAB | | | | [address];[place] | | | | | | [address] | | | | + + + + + + + + | Specimen | + + | Blood specimen | | (specimen) | + + + +---------+ + + | Performing | Address | City/State/Zipcode | Phone Number | | Organization | | | | + +---------+ + + | EXTERNAL LAB | | | | + +---------+ + + Basic Metabolic Panel (05/29/2018 5:33 AM PDT) + + + + + + | Component | Value | Ref Range | Performed | Pathologist | | | | | At | Signature | + + + + + + | Na | 134 (L) | 135 - 145 | EXTERNAL | | | | | mmol/L | LAB | | + + + + + + | K | 4.2 | 3.5 - 4.9 | EXTERNAL | | | | | mmol/L | LAB | | + + + + + + | Cl | 98 (L) | 99 - 109 mmol/L | EXTERNAL | | | | | | LAB | | + + + + + + | CO2 | 27 | 23 - 32 mmol/L | EXTERNAL | | | | | | LAB | | + + + + + + | Anion Gap | 13 | 5 - 20 mmol/L | EXTERNAL | | | | | | LAB | | + + + + + + | Glucose, | 117 (H) | 65 - 99 mg/dL | EXTERNAL | | | Fasting | | | LAB | | + + + + + + | BUN | 13 | 8 - 25 mg/dL | EXTERNAL | | | | | | LAB | | + + + + + + | Creatinine | 0.97 | 0.70 - 1.30 | EXTERNAL | | | | | mg/dL | LAB | | + + + + + + | BUN/Creatin | 14 | | EXTERNAL | | | ine Ratio | | | LAB | | + + + + + + | Calcium | 7.9 (L) | 8.5 - 10.5 | EXTERNAL | | | | | mg/dL | LAB | | + + + + + + | Estimated | >60Comment: GFR <60: | mL/min/1.73m2 | EXTERNAL | | | GFR | CHRONIC KIDNEY DISEASE, | | LAB | | | | IF FOUND OVER A 3 MONTH | | | | | | PERIOD.GFR <15: KIDNEY | | | | | | FAILURE.FOR | | | | | | AMERICANS, MULTIPLY THE | | | | | | CALCULATED GFR BY | | | | | | 1.210.This eGFR is | | | | | | calculated using the | | | | | | MDRD [facility] traceable | | | | | | equation.Testing | | | | | | performed at [facility];[address] | | | | | | [facility];[place], [place] | | | | | | [address] | | | | + + + + + + + + | Specimen | + + | Blood specimen | | (specimen) | + + + +---------+ + + | Performing | Address | City/State/Zipcode | Phone Number | | Organization | | | | + +---------+ + + | EXTERNAL LAB | | | | + +---------+ + + POC Glucose (05/29/2018 5:22 AM PDT) + + + + + + | Component | Value | Ref Range | Performed | Pathologist | | | | | At | Signature | + + + + + + | Glucose, | 123 (H)Comment: Testing | 65 - 99 mg/dL | EXTERNAL | | | Fingerstick | performed at [facility];[address] | | LAB | | | | [address];[place], [place] | | | | | | [address] | | | | + + + + + + + + | Specimen | + + | | + + + +---------+ + + | Performing | Address | City/State/Zipcode | Phone Number | | Organization | | | | + +---------+ + + | EXTERNAL LAB | | | | + +---------+ + + POC Glucose (05/28/2018 9:01 PM PDT) + + + + + + | Component | Value | Ref Range | Performed | Pathologist | | | | | At | Signature | + + + + + + | Glucose, | 145 (H)Comment: Testing | 65 - 99 mg/dL | EXTERNAL | | | Fingerstick | performed at [facility];[address] | | LAB | | | | [address];[place], [place] | | | | | | [address] | | | | + + + + + + + + | Specimen | + + | | + + + +---------+ + + | Performing | Address | City/State/Zipcode | Phone Number | | Organization | | | | + +---------+ + + | EXTERNAL LAB | | | | + +---------+ + + POC Glucose (05/28/2018 5:04 PM PDT) + + + + + + | Component | Value | Ref Range | Performed | Pathologist | | | | | At | Signature | + + + + + + | Glucose, | 145 (H)Comment: Testing | 65 - 99 mg/dL | EXTERNAL | | | Fingerstick | performed at [facility];[address] | | LAB | | | | [address];[place] | | | | | | [address] | | | | + + + + + + + + | Specimen | + + | | + + + +---------+ + + | Performing | Address | City/State/Zipcode | Phone Number | | Organization | | | | + +---------+ + + | EXTERNAL LAB | | | | + +---------+ + + POC Glucose (05/28/2018 11:13 AM PDT) + + + + + + | Component | Value | Ref Range | Performed | Pathologist | | | | | At | Signature | + + + + + + | Glucose, | 148 (H)Comment: Testing | 65 - 99 mg/dL | EXTERNAL | | | Fingerstick | performed at [facility];[address] | | LAB | | | | [address];[place] | | | | | | [address] | | | | + + + + + + + + | Specimen | + + | | + + + +---------+ + + | Performing | Address | City/State/Zipcode | Phone Number | | Organization | | | | + +---------+ + + | EXTERNAL LAB | | | | + +---------+ + + POC Glucose (05/28/2018 5:51 AM PDT) + + + + + + | Component | Value | Ref Range | Performed | Pathologist | | | | | At | Signature | + + + + + + | Glucose, | 110 (H)Comment: Testing | 65 - 99 mg/dL | EXTERNAL | | | Fingerstick | performed at [facility] | | LAB | | | | [address];[place] | | | | | | [address] | | | | + + + + + + + + | Specimen | + + | | + + + +---------+ + + | Performing | Address | City/State/Zipcode | Phone Number | | Organization | | | | + +---------+ + + | EXTERNAL LAB | | | | + +---------+ + + CBC no Differential (05/28/2018 4:16 AM PDT) + + + + + + | Component | Value | Ref Range | Performed | Pathologist | | | | | At | Signature | + + + + + + | WBC | 6.14 | 3.80 - 11.00 | EXTERNAL | | | | | K/uL | LAB | | + + + + + + | Non- | 3.98 (L) | 4.20 - 5.70 | EXTERNAL | | | Red Blood | | M/uL | LAB | | | Cells | | | | | | Counted | | | | | + + + + + + | Hemoglobin | 8.9 (L) | 13.2 - 17.0 | EXTERNAL | | | | | g/dL | LAB | | + + + + + + | Hematocrit, | 27.9 (L) | 39.0 - 50.0 % | EXTERNAL | | | POC | | | LAB | | + + + + + + | MCV | 70.2 (L) | 80.0 - 100.0 fl | EXTERNAL | | | | | | LAB | | + + + + + + | MCH | 22.4 (L) | 27.0 - 34.0 pg | EXTERNAL | | | | | | LAB | | + + + + + + | MCHC | 31.9 (L) | 32.0 - 35.5 | EXTERNAL | | | | | g/dL | LAB | | + + + + + + | RDW-CV | 57.8 (H) | 37 - 53 fl | EXTERNAL | | | | | | LAB | | + + + + + + | Platelet | 151 | 150 - 400 K/uL | EXTERNAL | | | Count | | | LAB | | | Plasma | | | | | + + + + + + | MPV | 9.0Comment: Testing | fl | EXTERNAL | | | | performed at [facility], [address] | | LAB | | | | [address], | | | | | | [place] [address] | | | | + + + + + + + + | Specimen | + + | Blood specimen | | (specimen) | + + + +---------+ + + | Performing | Address | City/State/Zipcode | Phone Number | | Organization | | | | + +---------+ + + | EXTERNAL LAB | | | | + +---------+ + + Protime INR (05/28/2018 4:16 AM PDT) + + + + + + | Component | Value | Ref Range | Performed | Pathologist | | | | | At | Signature | + + + + + + | INR | 2.0Comment: REFERENCE | | EXTERNAL | | | | RANGE:0.9 - 1.2 | | LAB | | | | NON-ANTICOAGULATED2.0 | | | | | | - 3.0 ALL OTHER | | | | | | THERAPEUTIC | | | | | | INDICATIONS2.5 - 3.5 | | | | | | MECHANICAL HEART VALVES, | | | | | | RECURRENT OR SYSTEMIC | | | | | | EMBOLISMTesting | | | | | | performed at [facility] | | | | | | [address] [facility];[place], [place] | | | | | | [address] | | | | + + + + + + + + | Specimen | + + | Blood specimen | | (specimen) | + + + +---------+ + + | Performing | Address | City/State/Zipcode | Phone Number | | Organization | | | | + +---------+ + + | EXTERNAL LAB | | | | + +---------+ + + Magnesium (05/28/2018 4:16 AM PDT) + + + + + + | Component | Value | Ref Range | Performed | Pathologist | | | | | At | Signature | + + + + + + | Magnesium | 2.2Comment: Testing | 1.7 - 2.4 mg/dL | EXTERNAL | | | | performed at [facility];[address] | | LAB | | | | [address];[place], [place] | | | | | | [address] | | | | + + + + + + + + | Specimen | + + | Blood specimen | | (specimen) | + + + +---------+ + + | Performing | Address | City/State/Zipcode | Phone Number | | Organization | | | | + +---------+ + + | EXTERNAL LAB | | | | + +---------+ + + Basic Metabolic Panel (05/28/2018 4:16 AM PDT) + + + + + + | Component | Value | Ref Range | Performed | Pathologist | | | | | At | Signature | + + + + + + | Na | 137 | 135 - 145 | EXTERNAL | | | | | mmol/L | LAB | | + + + + + + | K | 4.3 | 3.5 - 4.9 | EXTERNAL | | | | | mmol/L | LAB | | + + + + + + | Cl | 96 (L) | 99 - 109 mmol/L | EXTERNAL | | | | | | LAB | | + + + + + + | CO2 | 32 | 23 - 32 mmol/L | EXTERNAL | | | | | | LAB | | + + + + + + | Anion Gap | 13 | 5 - 20 mmol/L | EXTERNAL | | | | | | LAB | | + + + + + + | Glucose, | 99 | 65 - 99 mg/dL | EXTERNAL | | | Fasting | | | LAB | | + + + + + + | BUN | 10 | 8 - 25 mg/dL | EXTERNAL | | | | | | LAB | | + + + + + + | Creatinine | 0.92 | 0.70 - 1.30 | EXTERNAL | | | | | mg/dL | LAB | | + + + + + + | BUN/Creatin | 11 | | EXTERNAL | | | ine Ratio | | | LAB | | + + + + + + | Calcium | 8.0 (L) | 8.5 - 10.5 | EXTERNAL | | | | | mg/dL | LAB | | + + + + + + | Estimated | >60Comment: GFR <60: | mL/min/1.73m2 | EXTERNAL | | | GFR | CHRONIC KIDNEY DISEASE, | | LAB | | | | IF FOUND OVER A 3 MONTH | | | | | | PERIOD.GFR <15: KIDNEY | | | | | | FAILURE.FOR | | | | | | AMERICANS, MULTIPLY THE | | | | | | CALCULATED GFR BY | | | | | | 1.210.This eGFR is | | | | | | calculated using the | | | | | | MDRD [facility] traceable | | | | | | equation.Testing | | | | | | performed at [facility] | | | | | | [facility];[place], [place] | | | | | | [address] | | | | + + + + + + + + | Specimen | + + | Blood specimen | | (specimen) | + + + +---------+ + + | Performing | Address | City/State/Zipcode | Phone Number | | Organization | | | | + +---------+ + + | EXTERNAL LAB | | | | + +---------+ + + Potassium (05/27/2018 11:53 PM PDT) + + + + + + | Component | Value | Ref Range | Performed | Pathologist | | | | | At | Signature | + + + + + + | K | 4.0Comment: Testing | 3.5 - 4.9 | EXTERNAL | | | | performed at [facility];[address] | mmol/L | LAB | | | | [address];[place], [place] | | | | | | [address] | | | | + + + + + + + + | Specimen | + + | Blood specimen | | (specimen) | + + + +---------+ + + | Performing | Address | City/State/Zipcode | Phone Number | | Organization | | | | + +---------+ + + | EXTERNAL LAB | | | | + +---------+ + + POC Glucose (05/27/2018 8:56 PM PDT) + + + + + + | Component | Value | Ref Range | Performed | Pathologist | | | | | At | Signature | + + + + + + | Glucose, | 176 (H)Comment: Testing | 65 - 99 mg/dL | EXTERNAL | | | Fingerstick | performed at [facility];[address] | | LAB | | | | [address];[place] | | | | | | [address] | | | | + + + + + + + + | Specimen | + + | | + + + +---------+ + + | Performing | Address | City/State/Zipcode | Phone Number | | Organization | | | | + +---------+ + + | EXTERNAL LAB | | | | + +---------+ + + Potassium (05/27/2018 5:49 PM PDT) + + + + + + | Component | Value | Ref Range | Performed | Pathologist | | | | | At | Signature | + + + + + + | K | 4.2Comment: Testing | 3.5 - 4.9 | EXTERNAL | | | | performed at [facility];[address] | mmol/L | LAB | | | | [address];[place], [place] | | | | | | [address] | | | | + + + + + + + + | Specimen | + + | Blood specimen | | (specimen) | + + + +---------+ + + | Performing | Address | City/State/Zipcode | Phone Number | | Organization | | | | + +---------+ + + | EXTERNAL LAB | | | | + +---------+ + + POC Glucose (05/27/2018 3:44 PM PDT) + + + + + + | Component | Value | Ref Range | Performed | Pathologist | | | | | At | Signature | + + + + + + | Glucose, | 136 (H)Comment: Testing | 65 - 99 mg/dL | EXTERNAL | | | Fingerstick | performed at [facility];[address] | | LAB | | | | [address];[place] | | | | | | [address] | | | | + + + + + + + + | Specimen | + + | | + + + +---------+ + + | Performing | Address | City/State/Zipcode | Phone Number | | Organization | | | | + +---------+ + + | EXTERNAL LAB | | | | + +---------+ + + Potassium (05/27/2018 12:10 PM PDT) + + + + + + | Component | Value | Ref Range | Performed | Pathologist | | | | | At | Signature | + + + + + + | K | 3.9Comment: Testing | 3.5 - 4.9 | EXTERNAL | | | | performed at [facility];[address] | mmol/L | LAB | | | | [address];[place], [place] | | | | | | [address] | | | | + + + + + + + + | Specimen | + + | Blood specimen | | (specimen) | + + + +---------+ + + | Performing | Address | City/State/Zipcode | Phone Number | | Organization | | | | + +---------+ + + | EXTERNAL LAB | | | | + +---------+ + + POC Glucose (05/27/2018 11:48 AM PDT) + + + + + + | Component | Value | Ref Range | Performed | Pathologist | | | | | At | Signature | + + + + + + | Glucose, | 166 (H)Comment: Testing | 65 - 99 mg/dL | EXTERNAL | | | Fingerstick | performed at [facility];[address] | | LAB | | | | [address];[place], [place] | | | | | | [address] | | | | + + + + + + + + | Specimen | + + | | + + + +---------+ + + | Performing | Address | City/State/Zipcode | Phone Number | | Organization | | | | + +---------+ + + | EXTERNAL LAB | | | | + +---------+ + + POC Glucose (05/27/2018 10:36 AM PDT) + + + + + + | Component | Value | Ref Range | Performed | Pathologist | | | | | At | Signature | + + + + + + | Glucose, | 189 (H)Comment: Testing | 65 - 99 mg/dL | EXTERNAL | | | Fingerstick | performed at [facility];[address] | | LAB | | | | [address];[place], [place] | | | | | | [address] | | | | + + + + + + + + | Specimen | + + | | + + + +---------+ + + | Performing | Address | City/State/Zipcode | Phone Number | | Organization | | | | + +---------+ + + | EXTERNAL LAB | | | | + +---------+ + + POC Glucose (05/27/2018 5:25 AM PDT) + + + + + + | Component | Value | Ref Range | Performed | Pathologist | | | | | At | Signature | + + + + + + | Glucose, | 109 (H)Comment: Testing | 65 - 99 mg/dL | EXTERNAL | | | Fingerstick | performed at [facility];[address] | | LAB | | | | [address];[place] | | | | | | [address] | | | | + + + + + + + + | Specimen | + + | | + + + +---------+ + + | Performing | Address | City/State/Zipcode | Phone Number | | Organization | | | | + +---------+ + + | EXTERNAL LAB | | | | + +---------+ + + CBC no Differential (05/27/2018 5:05 AM PDT) + + + + + + | Component | Value | Ref Range | Performed | Pathologist | | | | | At | Signature | + + + + + + | WBC | 7.26 | 3.80 - 11.00 | EXTERNAL | | | | | K/uL | LAB | | + + + + + + | Non- | 4.16 (L) | 4.20 - 5.70 | EXTERNAL | | | Red Blood | | M/uL | LAB | | | Cells | | | | | | Counted | | | | | + + + + + + | Hemoglobin | 9.5 (L) | 13.2 - 17.0 | EXTERNAL | | | | | g/dL | LAB | | + + + + + + | Hematocrit, | 29.3 (L) | 39.0 - 50.0 % | EXTERNAL | | | POC | | | LAB | | + + + + + + | MCV | 70.3 (L) | 80.0 - 100.0 fl | EXTERNAL | | | | | | LAB | | + + + + + + | MCH | 22.8 (L) | 27.0 - 34.0 pg | EXTERNAL | | | | | | LAB | | + + + + + + | MCHC | 32.4 | 32.0 - 35.5 | EXTERNAL | | | | | g/dL | LAB | | + + + + + + | RDW-CV | 55.1 (H) | 37 - 53 fl | EXTERNAL | | | | | | LAB | | + + + + + + | Platelet | 171 | 150 - 400 K/uL | EXTERNAL | | | Count | | | LAB | | | Plasma | | | | | + + + + + + | MPV | 9.2Comment: Testing | fl | EXTERNAL | | | | performed at [facility], [address] | | LAB | | | | [address], | | | | | | [place] [address] | | | | + + + + + + + + | Specimen | + + | Blood specimen | | (specimen) | + + + +---------+ + + | Performing | Address | City/State/Zipcode | Phone Number | | Organization | | | | + +---------+ + + | EXTERNAL LAB | | | | + +---------+ + + Protime INR (05/27/2018 5:05 AM PDT) + + + + + + | Component | Value | Ref Range | Performed | Pathologist | | | | | At | Signature | + + + + + + | INR | 1.8Comment: REFERENCE | | EXTERNAL | | | | RANGE:0.9 - 1.2 | | LAB | | | | NON-ANTICOAGULATED2.0 | | | | | | - 3.0 ALL OTHER | | | | | | THERAPEUTIC | | | | | | INDICATIONS2.5 - 3.5 | | | | | | MECHANICAL HEART VALVES, | | | | | | RECURRENT OR SYSTEMIC | | | | | | EMBOLISMTesting | | | | | | performed at [facility];[address] | | | | | | [address] [facility];[place], [place] | | | | | | [address] | | | | + + + + + + + + | Specimen | + + | Blood specimen | | (specimen) | + + + +---------+ + + | Performing | Address | City/State/Zipcode | Phone Number | | Organization | | | | + +---------+ + + | EXTERNAL LAB | | | | + +---------+ + + Magnesium (05/27/2018 5:05 AM PDT) + + + + + + | Component | Value | Ref Range | Performed | Pathologist | | | | | At | Signature | + + + + + + | Magnesium | 2.2Comment: Testing | 1.7 - 2.4 mg/dL | EXTERNAL | | | | performed at [facility];[address] | | LAB | | | | [address];[place] | | | | | | [address] | | | | + + + + + + + + | Specimen | + + | Blood specimen | | (specimen) | + + + +---------+ + + | Performing | Address | City/State/Zipcode | Phone Number | | Organization | | | | + +---------+ + + | EXTERNAL LAB | | | | + +---------+ + + Basic Metabolic Panel (05/27/2018 5:05 AM PDT) + + + + + + | Component | Value | Ref Range | Performed | Pathologist | | | | | At | Signature | + + + + + + | Na | 133 (L) | 135 - 145 | EXTERNAL | | | | | mmol/L | LAB | | + + + + + + | K | 4.0 | 3.5 - 4.9 | EXTERNAL | | | | | mmol/L | LAB | | + + + + + + | Cl | 92 (L) | 99 - 109 mmol/L | EXTERNAL | | | | | | LAB | | + + + + + + | CO2 | 33 (H) | 23 - 32 mmol/L | EXTERNAL | | | | | | LAB | | + + + + + + | Anion Gap | 12 | 5 - 20 mmol/L | EXTERNAL | | | | | | LAB | | + + + + + + | Glucose, | 114 (H) | 65 - 99 mg/dL | EXTERNAL | | | Fasting | | | LAB | | + + + + + + | BUN | 11 | 8 - 25 mg/dL | EXTERNAL | | | | | | LAB | | + + + + + + | Creatinine | 0.92 | 0.70 - 1.30 | EXTERNAL | | | | | mg/dL | LAB | | + + + + + + | BUN/Creatin | 12 | | EXTERNAL | | | ine Ratio | | | LAB | | + + + + + + | Calcium | 8.2 (L) | 8.5 - 10.5 | EXTERNAL | | | | | mg/dL | LAB | | + + + + + + | Estimated | >60Comment: GFR <60: | mL/min/1.73m2 | EXTERNAL | | | GFR | CHRONIC KIDNEY DISEASE, | | LAB | | | | IF FOUND OVER A 3 MONTH | | | | | | PERIOD.GFR <15: KIDNEY | | | | | | FAILURE.FOR | | | | | | AMERICANS, MULTIPLY THE | | | | | | CALCULATED GFR BY | | | | | | 1.210.This eGFR is | | | | | | calculated using the | | | | | | MDRD [facility] traceable | | | | | | equation.Testing | | | | | | performed at [facility];[address] | | | | | | [facility];[place], [place] | | | | | | [address] | | | | + + + + + + + + | Specimen | + + | Blood specimen | | (specimen) | + + + +---------+ + + | Performing | Address | City/State/Zipcode | Phone Number | | Organization | | | | + +---------+ + + | EXTERNAL LAB | | | | + +---------+ + + Potassium (05/26/2018 11:54 PM PDT) + + + + + + | Component | Value | Ref Range | Performed | Pathologist | | | | | At | Signature | + + + + + + | K | 4.1Comment: Testing | 3.5 - 4.9 | EXTERNAL | | | | performed at [facility];[address] | mmol/L | LAB | | | | [address];[place] | | | | | | [address] | | | | + + + + + + + + | Specimen | + + | Blood specimen | | (specimen) | + + + +---------+ + + | Performing | Address | City/State/Zipcode | Phone Number | | Organization | | | | + +---------+ + + | EXTERNAL LAB | | | | + +---------+ + + POC Glucose (05/26/2018 9:19 PM PDT) + + + + + + | Component | Value | Ref Range | Performed | Pathologist | | | | | At | Signature | + + + + + + | Glucose, | 203 (H)Comment: Testing | 65 - 99 mg/dL | EXTERNAL | | | Fingerstick | performed at [facility];[address] | | LAB | | | [address];[place], [place] | | | | | | [address] | | | | + + + + + + + + | Specimen | + + | | + + + +---------+ + + | Performing | Address | City/State/Zipcode | Phone Number | | Organization | | | | + +---------+ + + | EXTERNAL LAB | | | | + +---------+ + + POC Glucose (05/26/2018 4:40 PM PDT) + + + + + + | Component | Value | Ref Range | Performed | Pathologist | | | | | At | Signature | + + + + + + | Glucose, | 110 (H)Comment: Testing | 65 - 99 mg/dL | EXTERNAL | | | Fingerstick | performed at [facility];[address] | | LAB | | | | [address];[place], [place] | | | | | | [address] | | | | + + + + + + + + | Specimen | + + | | + + + +---------+ + + | Performing | Address | City/State/Zipcode | Phone Number | | Organization | | | | + +---------+ + + | EXTERNAL LAB | | | | + +---------+ + + POC Glucose (05/26/2018 11:51 AM PDT) + + + + + + | Component | Value | Ref Range | Performed | Pathologist | | | | | At | Signature | + + + + + + | Glucose, | 173 (H)Comment: Testing | 65 - 99 mg/dL | EXTERNAL | | | Fingerstick | performed at [facility];[address] | | LAB | | | | [address];[place], [place] | | | | | | [address] | | | | + + + + + + + + | Specimen | + + | | + + + +---------+ + + | Performing | Address | City/State/Zipcode | Phone Number | | Organization | | | | + +---------+ + + | EXTERNAL LAB | | | | + +---------+ + + CBC no Differential (05/26/2018 5:31 AM PDT) + + + + + + | Component | Value | Ref Range | Performed | Pathologist | | | | | At | Signature | + + + + + + | WBC | 5.76 | 3.80 - 11.00 | EXTERNAL | | | | | K/uL | LAB | | + + + + + + | Non- | 3.88 (L) | 4.20 - 5.70 | EXTERNAL | | | Red Blood | | M/uL | LAB | | | Cells | | | | | | Counted | | | | | + + + + + + | Hemoglobin | 8.6 (L) | 13.2 - 17.0 | EXTERNAL | | | | | g/dL | LAB | | + + + + + + | Hematocrit, | 27.6 (L) | 39.0 - 50.0 % | EXTERNAL | | | POC | | | LAB | | + + + + + + | MCV | 71.2 (L) | 80.0 - 100.0 fl | EXTERNAL | | | | | | LAB | | + + + + + + | MCH | 22.1 (L) | 27.0 - 34.0 pg | EXTERNAL | | | | | | LAB | | + + + + + + | MCHC | 31.1 (L) | 32.0 - 35.5 | EXTERNAL | | | | | g/dL | LAB | | + + + + + + | RDW-CV | 59.5 (H) | 37 - 53 fl | EXTERNAL | | | | | | LAB | | + + + + + + | Platelet | 171 | 150 - 400 K/uL | EXTERNAL | | | Count | | | LAB | | | Plasma | | | | | + + + + + + | MPV | 8.9Comment: Testing | fl | EXTERNAL | | | | performed at [facility], [address] | | LAB | | | | [address], | | | | | | [place] [address] | | | | + + + + + + + + | Specimen | + + | Blood specimen | | (specimen) | + + + +---------+ + + | Performing | Address | City/State/Zipcode | Phone Number | | Organization | | | | + +---------+ + + | EXTERNAL LAB | | | | + +---------+ + + Sedimentation rate, automated (05/26/2018 5:31 AM PDT) + + + + + + | Component | Value | Ref Range | Performed | Pathologist | | | | | At | Signature | + + + + + + | Sed Rate | 64 (H)Comment: Testing | 0 - 20 mm/Hr | EXTERNAL | | | | performed at [facility], [address] | | LAB | | | | [address], | | | | | | [place] [address] | | | | + + + + + + + + | Specimen | + + | Blood specimen | | (specimen) | + + + +---------+ + + | Performing | Address | City/State/Zipcode | Phone Number | | Organization | | | | + +---------+ + + | EXTERNAL LAB | | | | + +---------+ + + Protime INR (05/26/2018 5:31 AM PDT) + + + + + + | Component | Value | Ref Range | Performed | Pathologist | | | | | At | Signature | + + + + + + | INR | 1.9Comment: REFERENCE | | EXTERNAL | | | | RANGE:0.9 - 1.2 | | LAB | | | | NON-ANTICOAGULATED2.0 | | | | | | - 3.0 ALL OTHER | | | | | | THERAPEUTIC | | | | | | INDICATIONS2.5 - 3.5 | | | | | | MECHANICAL HEART VALVES, | | | | | | RECURRENT OR SYSTEMIC | | | | | | EMBOLISMTesting | | | | | | performed at [facility] [facility] | | | | | | [facility];[place], [place] | | | | | | [address] | | | | + + + + + + + + | Specimen | + + | Blood specimen | | (specimen) | + + + +---------+ + + | Performing | Address | City/State/Zipcode | Phone Number | | Organization | | | | + +---------+ + + | EXTERNAL LAB | | | | + +---------+ + + C-Reactive Protein (05/26/2018 5:31 AM PDT) + + + + + + | Component | Value | Ref Range | Performed | Pathologist | | | | | At | Signature | + + + + + + | CRP | 1.6 (H)Comment: Testing | mg/dL | EXTERNAL | | | | performed at [facility] | | LAB | | | | [address]os;[place] | | | | | | [address] | | | | + + + + + + + + | Specimen | + + | Blood specimen | | (specimen) | + + + +---------+ + + | Performing | Address | City/State/Zipcode | Phone Number | | Organization | | | | + +---------+ + + | EXTERNAL LAB | | | | + +---------+ + + Magnesium (05/26/2018 5:31 AM PDT) + + + + + + | Component | Value | Ref Range | Performed | Pathologist | | | | | At | Signature | + + + + + + | Magnesium | 2.2Comment: Testing | 1.7 - 2.4 mg/dL | EXTERNAL | | | | performed at [facility];[address] | | LAB | | | | [address];[place], [place] | | | | | | [address] | | | | + + + + + + + + | Specimen | + + | Blood specimen | | (specimen) | + + + +---------+ + + | Performing | Address | City/State/Zipcode | Phone Number | | Organization | | | | + +---------+ + + | EXTERNAL LAB | | | | + +---------+ + + Basic Metabolic Panel (05/26/2018 5:31 AM PDT) + + + + + + | Component | Value | Ref Range | Performed | Pathologist | | | | | At | Signature | + + + + + + | Na | 134 (L) | 135 - 145 | EXTERNAL | | | | | mmol/L | LAB | | + + + + + + | K | 4.0 | 3.5 - 4.9 | EXTERNAL | | | | | mmol/L | LAB | | + + + + + + | Cl | 94 (L) | 99 - 109 mmol/L | EXTERNAL | | | | | | LAB | | + + + + + + | CO2 | 34 (H) | 23 - 32 mmol/L | EXTERNAL | | | | | | LAB | | + + + + + + | Anion Gap | 11 | 5 - 20 mmol/L | EXTERNAL | | | | | | LAB | | + + + + + + | Glucose, | 104 (H) | 65 - 99 mg/dL | EXTERNAL | | | Fasting | | | LAB | | + + + + + + | BUN | 11 | 8 - 25 mg/dL | EXTERNAL | | | | | | LAB | | + + + + + + | Creatinine | 0.85 | 0.70 - 1.30 | EXTERNAL | | | | | mg/dL | LAB | | + + + + + + | BUN/Creatin | 14 | | EXTERNAL | | | ine Ratio | | | LAB | | + + + + + + | Calcium | 7.8 (L) | 8.5 - 10.5 | EXTERNAL | | | | | mg/dL | LAB | | + + + + + + | Estimated | >60Comment: GFR <60: | mL/min/1.73m2 | EXTERNAL | | | GFR | CHRONIC KIDNEY DISEASE, | | LAB | | | | IF FOUND OVER A 3 MONTH | | | | | | PERIOD.GFR <15: KIDNEY | | | | | | FAILURE.FOR | | | | | | AMERICANS, MULTIPLY THE | | | | | | CALCULATED GFR BY | | | | | | 1.210.This eGFR is | | | | | | calculated using the | | | | | | MDRD IDMS traceable | | | | | | equation.Testing | | | | | | performed at [facility] | | | | | | [address];[place], [place] | | | | | | [address] | | | | + + + + + + + + | Specimen | + + | Blood specimen | | (specimen) | + + + +---------+ + + | Performing | Address | City/State/Zipcode | Phone Number | | Organization | | | | + +---------+ + + | EXTERNAL LAB | | | | + +---------+ + + POC Glucose (05/26/2018 5:28 AM PDT) + + + + + + | Component | Value | Ref Range | Performed | Pathologist | | | | | At | Signature | + + + + + + | Glucose, | 117 (H)Comment: Testing | 65 - 99 mg/dL | EXTERNAL | | | Fingerstick | performed at [facility];[address] | | LAB | | | | [address];[place] | | | | | | [address] | | | | + + + + + + + + | Specimen | + + | | + + + +---------+ + + | Performing | Address | City/State/Zipcode | Phone Number | | Organization | | | | + +---------+ + + | EXTERNAL LAB | | | | + +---------+ + + Potassium (05/26/2018 12:26 AM PDT) + + + + + + | Component | Value | Ref Range | Performed | Pathologist | | | | | At | Signature | + + + + + + | K | 4.2Comment: Testing | 3.5 - 4.9 | EXTERNAL | | | | performed at [facility];[address] | mmol/L | LAB | | | | [address];[place], [place] | | | | | | [address] | | | | + + + + + + + + | Specimen | + + | Blood specimen | | (specimen) | + + + +---------+ + + | Performing | Address | City/State/Zipcode | Phone Number | | Organization | | | | + +---------+ + + | EXTERNAL LAB | | | | + +---------+ + + POC Glucose (05/25/2018 9:18 PM PDT) + + + + + + | Component | Value | Ref Range | Performed | Pathologist | | | | | At | Signature | + + + + + + | Glucose, | 131 (H)Comment: Testing | 65 - 99 mg/dL | EXTERNAL | | | Fingerstick | performed at [facility];[address] | | LAB | | | | [address];[place] | | | | | | [address] | | | | + + + + + + + + | Specimen | + + | | + + + +---------+ + + | Performing | Address | City/State/Zipcode | Phone Number | | Organization | | | | + +---------+ + + | EXTERNAL LAB | | | | + +---------+ + + POC Glucose (05/25/2018 4:40 PM PDT) + + + + + + | Component | Value | Ref Range | Performed | Pathologist | | | | | At | Signature | + + + + + + | Glucose, | 125 (H)Comment: Testing | 65 - 99 mg/dL | EXTERNAL | | | Fingerstick | performed at [facility];[address] | | LAB | | | | [address];[place], [place] | | | | | | [address] | | | | + + + + + + + + | Specimen | + + | | + + + +---------+ + + | Performing | Address | City/State/Zipcode | Phone Number | | Organization | | | | + +---------+ + + | EXTERNAL LAB | | | | + +---------+ + + POC Glucose (05/25/2018 11:21 AM PDT) + + + + + + | Component | Value | Ref Range | Performed | Pathologist | | | | | At | Signature | + + + + + + | Glucose, | 151 (H)Comment: Testing | 65 - 99 mg/dL | EXTERNAL | | | Fingerstick | performed at [facility];[address] | | LAB | | | | [address];[place], [place] | | | | | | [address] | | | | + + + + + + + + | Specimen | + + | | + + + +---------+ + + | Performing | Address | City/State/Zipcode | Phone Number | | Organization | | | | + +---------+ + + | EXTERNAL LAB | | | | + +---------+ + + CBC no Differential (05/25/2018 5:22 AM PDT) + + + + + + | Component | Value | Ref Range | Performed | Pathologist | | | | | At | Signature | + + + + + + | WBC | 6.79 | 3.80 - 11.00 | EXTERNAL | | | | | K/uL | LAB | | + + + + + + | Non- | 3.89 (L) | 4.20 - 5.70 | EXTERNAL | | | Red Blood | | M/uL | LAB | | | Cells | | | | | | Counted | | | | | + + + + + + | Hemoglobin | 8.8 (L) | 13.2 - 17.0 | EXTERNAL | | | | | g/dL | LAB | | + + + + + + | Hematocrit, | 28.1 (L) | 39.0 - 50.0 % | EXTERNAL | | | POC | | | LAB | | + + + + + + | MCV | 72.4 (L) | 80.0 - 100.0 fl | EXTERNAL | | | | | | LAB | | + + + + + + | MCH | 22.6 (L) | 27.0 - 34.0 pg | EXTERNAL | | | | | | LAB | | + + + + + + | MCHC | 31.2 (L) | 32.0 - 35.5 | EXTERNAL | | | | | g/dL | LAB | | + + + + + + | RDW-CV | 60.8 (H) | 37 - 53 fl | EXTERNAL | | | | | | LAB | | + + + + + + | Platelet | 201 | 150 - 400 K/uL | EXTERNAL | | | Count | | | LAB | | | Plasma | | | | | + + + + + + | MPV | 7.9Comment: Testing | fl | EXTERNAL | | | | performed at [facility];[address] | | LAB | | | | [address];[place], [place] | | | | | | [address] | | | | + + + + + + + + | Specimen | + + | Blood specimen | | (specimen) | + + + +---------+ + + | Performing | Address | City/State/Zipcode | Phone Number | | Organization | | | | + +---------+ + + | EXTERNAL LAB | | | | + +---------+ + + Protime INR (05/25/2018 5:22 AM PDT) + + + + + + | Component | Value | Ref Range | Performed | Pathologist | | | | | At | Signature | + + + + + + | INR | 2.4Comment: REFERENCE | | EXTERNAL | | | | RANGE:0.9 - 1.2 | | LAB | | | | NON-ANTICOAGULATED2.0 | | | | | | - 3.0 ALL OTHER | | | | | | THERAPEUTIC | | | | | | INDICATIONS2.5 - 3.5 | | | | | | MECHANICAL HEART VALVES, | | | | | | RECURRENT OR SYSTEMIC | | | | | | EMBOLISMTesting | | | | | | performed at [facility];[address] | | | | | | [address];[place], [place] | | | | | | [address] | | | | + + + + + + + + | Specimen | + + | Blood specimen | | (specimen) | + + + +---------+ + + | Performing | Address | City/State/Zipcode | Phone Number | | Organization | | | | + +---------+ + + | EXTERNAL LAB | | | | + +---------+ + + Magnesium (05/25/2018 5:22 AM PDT) + + + + + + | Component | Value | Ref Range | Performed | Pathologist | | | | | At | Signature | + + + + + + | Magnesium | 2.1Comment: Testing | 1.7 - 2.4 mg/dL | EXTERNAL | | | | performed at [facility] | | LAB | | | | [address];[place] | | | | | | [address] | | | | + + + + + + + + | Specimen | + + | Blood specimen | | (specimen) | + + + +---------+ + + | Performing | Address | City/State/Zipcode | Phone Number | | Organization | | | | + +---------+ + + | EXTERNAL LAB | | | | + +---------+ + + Basic Metabolic Panel (05/25/2018 5:22 AM PDT) + + + + + + | Component | Value | Ref Range | Performed | Pathologist | | | | | At | Signature | + + + + + + | Na | 134 (L) | 135 - 145 | EXTERNAL | | | | | mmol/L | LAB | | + + + + + + | K | 4.2 | 3.5 - 4.9 | EXTERNAL | | | | | mmol/L | LAB | | + + + + + + | Cl | 93 (L) | 99 - 109 mmol/L | EXTERNAL | | | | | | LAB | | + + + + + + | CO2 | 34 (H) | 23 - 32 mmol/L | EXTERNAL | | | | | | LAB | | + + + + + + | Anion Gap | 11 | 5 - 20 mmol/L | EXTERNAL | | | | | | LAB | | + + + + + + | Glucose, | 105 (H) | 65 - 99 mg/dL | EXTERNAL | | | Fasting | | | LAB | | + + + + + + | BUN | 11 | 8 - 25 mg/dL | EXTERNAL | | | | | | LAB | | + + + + + + | Creatinine | 0.78 | 0.70 - 1.30 | EXTERNAL | | | | | mg/dL | LAB | | + + + + + + | BUN/Creatin | 14 | | EXTERNAL | | | ine Ratio | | | LAB | | + + + + + + | Calcium | 7.7 (L) | 8.5 - 10.5 | EXTERNAL | | | | | mg/dL | LAB | | + + + + + + | Estimated | >60Comment: GFR <60: | mL/min/1.73m2 | EXTERNAL | | | GFR | CHRONIC KIDNEY DISEASE, | | LAB | | | | IF FOUND OVER A 3 MONTH | | | | | | PERIOD.GFR <15: KIDNEY | | | | | | FAILURE.FOR | | | | | | AMERICANS, MULTIPLY THE | | | | | | CALCULATED GFR BY | | | | | | 1.210.This eGFR is | | | | | | calculated using the | | | | | | MDRD IDMS traceable | | | | | | equation.Testing | | | | | | performed at [facility];[address] | | | | | | [address];[place], [place] | | | | | | [address] | | | | + + + + + + + + | Specimen | + + | Blood specimen | | (specimen) | + + + +---------+ + + | Performing | Address | City/State/Zipcode | Phone Number | | Organization | | | | + +---------+ + + | EXTERNAL LAB | | | | + +---------+ + + POC Glucose (05/25/2018 5:08 AM PDT) + + + + + + | Component | Value | Ref Range | Performed | Pathologist | | | | | At | Signature | + + + + + + | Glucose, | 115 (H)Comment: Testing | 65 - 99 mg/dL | EXTERNAL | | | Fingerstick | performed at [facility];[address] | | LAB | | | | [address];[place] | | | | | | [address] | | | | + + + + + + + + | Specimen | + + | | + + + +---------+ + + | Performing | Address | City/State/Zipcode | Phone Number | | Organization | | | | + +---------+ + + | EXTERNAL LAB | | | | + +---------+ + + Potassium (05/24/2018 10:08 PM PDT) + + + + + + | Component | Value | Ref Range | Performed | Pathologist | | | | | At | Signature | + + + + + + | K | 4.4Comment: Testing | 3.5 - 4.9 | EXTERNAL | | | | performed at [facility];[address] | mmol/L | LAB | | | | [facility];[place], [place] | | | | | | [address] | | | | + + + + + + + + | Specimen | + + | Blood specimen | | (specimen) | + + + +---------+ + + | Performing | Address | City/State/Zipcode | Phone Number | | Organization | | | | + +---------+ + + | EXTERNAL LAB | | | | + +---------+ + + POC Glucose (05/24/2018 9:07 PM PDT) + + + + + + | Component | Value | Ref Range | Performed | Pathologist | | | | | At | Signature | + + + + + + | Glucose, | 119 (H)Comment: Testing | 65 - 99 mg/dL | EXTERNAL | | | Fingerstick | performed at [facility];[address] | | LAB | | | | [address];[place] | | | | | | [address] | | | | + + + + + + + + | Specimen | + + | | + + + +---------+ + + | Performing | Address | City/State/Zipcode | Phone Number | | Organization | | | | + +---------+ + + | EXTERNAL LAB | | | | + +---------+ + + POC Glucose (05/24/2018 4:45 PM PDT) + + + + + + | Component | Value | Ref Range | Performed | Pathologist | | | | | At | Signature | + + + + + + | Glucose, | 163 (H)Comment: Testing | 65 - 99 mg/dL | EXTERNAL | | | Fingerstick | performed at [facility];[address] | | LAB | | | | [address];[place], [place] | | | | | | [address] | | | | + + + + + + + + | Specimen | + + | | + + + +---------+ + + | Performing | Address | City/State/Zipcode | Phone Number | | Organization | | | | + +---------+ + + | EXTERNAL LAB | | | | + +---------+ + + POC Glucose (05/24/2018 12:16 PM PDT) + + + + + + | Component | Value | Ref Range | Performed | Pathologist | | | | | At | Signature | + + + + + + | Glucose, | 158 (H)Comment: Testing | 65 - 99 mg/dL | EXTERNAL | | | Fingerstick | performed at [facility];[address] | | LAB | | | | [address]az[address];[place] | | | | | | [address] | | | | + + + + + + + + | Specimen | + + | | + + + +---------+ + + | Performing | Address | City/State/Zipcode | Phone Number | | Organization | | | | + +---------+ + + | EXTERNAL LAB | | | | + +---------+ + + CBC no Differential (05/24/2018 5:21 AM PDT) + + + + + + | Component | Value | Ref Range | Performed | Pathologist | | | | | At | Signature | + + + + + + | WBC | 7.02 | 3.80 - 11.00 | EXTERNAL | | | | | K/uL | LAB | | + + + + + + | Non- | 3.86 (L) | 4.20 - 5.70 | EXTERNAL | | | Red Blood | | M/uL | LAB | | | Cells | | | | | | Counted | | | | | + + + + + + | Hemoglobin | 8.8 (L) | 13.2 - 17.0 | EXTERNAL | | | | | g/dL | LAB | | + + + + + + | Hematocrit, | 28.1 (L) | 39.0 - 50.0 % | EXTERNAL | | | POC | | | LAB | | + + + + + + | MCV | 72.7 (L) | 80.0 - 100.0 fl | EXTERNAL | | | | | | LAB | | + + + + + + | MCH | 22.6 (L) | 27.0 - 34.0 pg | EXTERNAL | | | | | | LAB | | + + + + + + | MCHC | 31.1 (L) | 32.0 - 35.5 | EXTERNAL | | | | | g/dL | LAB | | + + + + + + | RDW-CV | 60.4 (H) | 37 - 53 fl | EXTERNAL | | | | | | LAB | | + + + + + + | Platelet | 215 | 150 - 400 K/uL | EXTERNAL | | | Count | | | LAB | | | Plasma | | | | | + + + + + + | MPV | 8.1Comment: Testing | fl | EXTERNAL | | | | performed at [facility];[address] | | LAB | | | | [address];[place] | | | | | | [address] | | | | + + + + + + + + | Specimen | + + | Blood specimen | | (specimen) | + + + +---------+ + + | Performing | Address | City/State/Zipcode | Phone Number | | Organization | | | | + +---------+ + + | EXTERNAL LAB | | | | + +---------+ + + Protime INR (05/24/2018 5:21 AM PDT) + + + + + + | Component | Value | Ref Range | Performed | Pathologist | | | | | At | Signature | + + + + + + | INR | 2.3Comment: REFERENCE | | EXTERNAL | | | | RANGE:0.9 - 1.2 | | LAB | | | | NON-ANTICOAGULATED2.0 | | | | | | - 3.0 ALL OTHER | | | | | | THERAPEUTIC | | | | | | INDICATIONS2.5 - 3.5 | | | | | | MECHANICAL HEART VALVES, | | | | | | RECURRENT OR SYSTEMIC | | | | | | EMBOLISMTesting | | | | | | performed at [facility];[address] | | | | | | [facility];[place], [place] | | | | | | [address] | | | | + + + + + + + + | Specimen | + + | Blood specimen | | (specimen) | + + + +---------+ + + | Performing | Address | City/State/Zipcode | Phone Number | | Organization | | | | + +---------+ + + | EXTERNAL LAB | | | | + +---------+ + + Magnesium (05/24/2018 5:21 AM PDT) + + + + + + | Component | Value | Ref Range | Performed | Pathologist | | | | | At | Signature | + + + + + + | Magnesium | 1.9Comment: Testing | 1.7 - 2.4 mg/dL | EXTERNAL | | | | performed at [facility];[address] | | LAB | | | | [address];[place], [place] | | | | | | [address] | | | | + + + + + + + + | Specimen | + + | Blood specimen | | (specimen) | + + + +---------+ + + | Performing | Address | City/State/Zipcode | Phone Number | | Organization | | | | + +---------+ + + | EXTERNAL LAB | | | | + +---------+ + + Basic Metabolic Panel (05/24/2018 5:21 AM PDT) + + + + + + | Component | Value | Ref Range | Performed | Pathologist | | | | | At | Signature | + + + + + + | Na | 134 (L) | 135 - 145 | EXTERNAL | | | | | mmol/L | LAB | | + + + + + + | K | 4.0 | 3.5 - 4.9 | EXTERNAL | | | | | mmol/L | LAB | | + + + + + + | Cl | 92 (L) | 99 - 109 mmol/L | EXTERNAL | | | | | | LAB | | + + + + + + | CO2 | 35 (H) | 23 - 32 mmol/L | EXTERNAL | | | | | | LAB | | + + + + + + | Anion Gap | 11 | 5 - 20 mmol/L | EXTERNAL | | | | | | LAB | | + + + + + + | Glucose, | 82 | 65 - 99 mg/dL | EXTERNAL | | | Fasting | | | LAB | | + + + + + + | BUN | 12 | 8 - 25 mg/dL | EXTERNAL | | | | | | LAB | | + + + + + + | Creatinine | 0.75 | 0.70 - 1.30 | EXTERNAL | | | | | mg/dL | LAB | | + + + + + + | BUN/Creatin | 16 | | EXTERNAL | | | ine Ratio | | | LAB | | + + + + + + | Calcium | 7.9 (L) | 8.5 - 10.5 | EXTERNAL | | | | | mg/dL | LAB | | + + + + + + | Estimated | >60Comment: GFR <60: | mL/min/1.73m2 | EXTERNAL | | | GFR | CHRONIC KIDNEY DISEASE, | | LAB | | | | IF FOUND OVER A 3 MONTH | | | | | | PERIOD.GFR <15: KIDNEY | | | | | | FAILURE.FOR | | | | | | AMERICANS, MULTIPLY THE | | | | | | CALCULATED GFR BY | | | | | | 1.210.This eGFR is | | | | | | calculated using the | | | | | | MDRD IDLA traceable | | | | | | equation.Testing | | | | | | performed at [facility];[address] | | | | | | [facility];[place], [place] | | | | | | [address] | | | | + + + + + + + + | Specimen | + + | Blood specimen | | (specimen) | + + + +---------+ + + | Performing | Address | City/State/Zipcode | Phone Number | | Organization | | | | + +---------+ + + | EXTERNAL LAB | | | | + +---------+ + + POC Glucose (05/24/2018 5:09 AM PDT) + + + + + + | Component | Value | Ref Range | Performed | Pathologist | | | | | At | Signature | + + + + + + | Glucose, | 97Comment: Testing | 65 - 99 mg/dL | EXTERNAL | | | Fingerstick | performed at [facility] | | LAB | | | | [address];[place], [place] | | | | | | [address] | | | | + + + + + + + + | Specimen | + + | | + + + +---------+ + + | Performing | Address | City/State/Zipcode | Phone Number | | Organization | | | | + +---------+ + + | EXTERNAL LAB | | | | + +---------+ + + Potassium (05/23/2018 10:01 PM PDT) + + + + + + | Component | Value | Ref Range | Performed | Pathologist | | | | | At | Signature | + + + + + + | K | 4.0Comment: Testing | 3.5 - 4.9 | EXTERNAL | | | | performed at [facility];888 | mmol/L | LAB | | | | [address];[place] | | | | | | [address] | | | | + + + + + + + + | Specimen | + + | Blood specimen | | (specimen) | + + + +---------+ + + | Performing | Address | City/State/Zipcode | Phone Number | | Organization | | | | + +---------+ + + | EXTERNAL LAB | | | | + +---------+ + + POC Glucose (05/23/2018 9:04 PM PDT) + + + + + + | Component | Value | Ref Range | Performed | Pathologist | | | | | At | Signature | + + + + + + | Glucose, | 115 (H)Comment: Testing | 65 - 99 mg/dL | EXTERNAL | | | Fingerstick | performed at [facility];[address] | | LAB | | | | [address];[place] | | | | | | [address] | | | | + + + + + + + + | Specimen | + + | | + + + +---------+ + + | Performing | Address | City/State/Zipcode | Phone Number | | Organization | | | | + +---------+ + + | EXTERNAL LAB | | | | + +---------+ + + POC Glucose (05/23/2018 4:34 PM PDT) + + + + + + | Component | Value | Ref Range | Performed | Pathologist | | | | | At | Signature | + + + + + + | Glucose, | 82Comment: Testing | 65 - 99 mg/dL | EXTERNAL | | | Fingerstick | performed at [facility];[address] | | LAB | | | | [address];[place] | | | | | | [address] | | | | + + + + + + + + | Specimen | + + | | + + + +---------+ + + | Performing | Address | City/State/Zipcode | Phone Number | | Organization | | | | + +---------+ + + | EXTERNAL LAB | | | | + +---------+ + + Potassium (05/23/2018 3:45 PM PDT) + + + + + + | Component | Value | Ref Range | Performed | Pathologist | | | | | At | Signature | + + + + + + | K | 3.8Comment: Testing | 3.5 - 4.9 | EXTERNAL | | | | performed at [facility];[address] | mmol/L | LAB | | | | [address];[place] | | | | | | [address] | | | | + + + + + + + + | Specimen | + + | Blood specimen | | (specimen) | + + + +---------+ + + | Performing | Address | City/State/Zipcode | Phone Number | | Organization | | | | + +---------+ + + | EXTERNAL LAB | | | | + +---------+ + + POC Glucose (05/23/2018 12:03 PM PDT) + + + + + + | Component | Value | Ref Range | Performed | Pathologist | | | | | At | Signature | + + + + + + | Glucose, | 194 (H)Comment: Testing | 65 - 99 mg/dL | EXTERNAL | | | Fingerstick | performed at [facility];[address] | | LAB | | | | [address];[place] | | | | | | [address] | | | | + + + + + + + + | Specimen | + + | | + + + +---------+ + + | Performing | Address | City/State/Zipcode | Phone Number | | Organization | | | | + +---------+ + + | EXTERNAL LAB | | | | + +---------+ + + Potassium (05/23/2018 10:02 AM PDT) + + + + + + | Component | Value | Ref Range | Performed | Pathologist | | | | | At | Signature | + + + + + + | K | 3.8Comment: Testing | 3.5 - 4.9 | EXTERNAL | | | | performed at [facility];[address] | mmol/L | LAB | | | | [address]azos;[place], [place] | | | | | | [address] | | | | + + + + + + + + | Specimen | + + | Blood specimen | | (specimen) | + + + +---------+ + + | Performing | Address | City/State/Zipcode | Phone Number | | Organization | | | | + +---------+ + + | EXTERNAL LAB | | | | + +---------+ + + POC Glucose (05/23/2018 5:21 AM PDT) + + + + + + | Component | Value | Ref Range | Performed | Pathologist | | | | | At | Signature | + + + + + + | Glucose, | 99Comment: Testing | 65 - 99 mg/dL | EXTERNAL | | | Fingerstick | performed at [facility];[address] | | LAB | | | | [address];[place], [place] | | | | | | [address] | | | | + + + + + + + + | Specimen | + + | | + + + +---------+ + + | Performing | Address | City/State/Zipcode | Phone Number | | Organization | | | | + +---------+ + + | EXTERNAL LAB | | | | + +---------+ + + Sedimentation rate, automated (05/23/2018 4:28 AM PDT) + + + + + + | Component | Value | Ref Range | Performed | Pathologist | | | | | At | Signature | + + + + + + | Sed Rate | 106 (H)Comment: Testing | 0 - 20 mm/Hr | EXTERNAL | | | | performed at [facility], [address] | | LAB | | | | [address], | | | | | | [place] [address] | | | | + + + + + + + + | Specimen | + + | Blood specimen | | (specimen) | + + + +---------+ + + | Performing | Address | City/State/Zipcode | Phone Number | | Organization | | | | + +---------+ + + | EXTERNAL LAB | | | | + +---------+ + + Protime INR (05/23/2018 4:28 AM PDT) + + + + + + | Component | Value | Ref Range | Performed | Pathologist | | | | | At | Signature | + + + + + + | INR | 1.3Comment: REFERENCE | | EXTERNAL | | | | RANGE:0.9 - 1.2 | | LAB | | | | NON-ANTICOAGULATED2.0 | | | | | | - 3.0 ALL OTHER | | | | | | THERAPEUTIC | | | | | | INDICATIONS2.5 - 3.5 | | | | | | MECHANICAL HEART VALVES, | | | | | | RECURRENT OR SYSTEMIC | | | | | | EMBOLISMTesting | | | | | | performed at [facility];[address] | | | | | | [address];[place], [place] | | | | | | [address] | | | | + + + + + + + + | Specimen | + + | | + + + +---------+ + + | Performing | Address | City/State/Zipcode | Phone Number | | Organization | | | | + +---------+ + + | EXTERNAL LAB | | | | + +---------+ + + CBC with Manual Differential (05/23/2018 4:28 AM PDT) + + +---- + + + | Component | Value | Ref Range | Performed | Pathologist | | | | | At | Signature | + + +---- + + + | WBC | 9.21 | 3.8 0 - 11.00 | EXTERNAL | | | | | K/u L | LAB | | + + +---- + + + | Non- | 3.70 (L) | 4.2 0 - 5.70 | EXTERNAL | | | Red Blood | | M/u L | LAB | | | Cells | | | | | | Counted | | | | | + + +---- + + + | Hemoglobin | 8.7 (L) | 13. 2 - 17.0 | EXTERNAL | | | | | g/d L | LAB | | + + +---- + + + | Hematocrit, | 26.5 (L) | 39. 0 - 50.0 % | EXTERNAL | | | POC | | | LAB | | + + +---- + + + | MCV | 71.5 (L) | 80. 0 - 100.0 fl | EXTERNAL | | | | | | LAB | | + + +---- + + + | MCH | 23.5 (L) | 27. 0 - 34.0 pg | EXTERNAL | | | | | | LAB | | + + +---- + + + | MCHC | 32.9 | 32. 0 - 35.5 | EXTERNAL | | | | | g/d L | LAB | | + + +---- + + + | RDW-CV | 62.6 (H) | 37 - 53 fl | EXTERNAL | | | | | | LAB | | + + +---- + + + | Platelet | 209 | 150 - 400 K/uL | EXTERNAL | | | Count | | | LAB | | | Plasma | | | | | + + +---- + + + | MPV | 8.2 | fl | EXTERNAL | | | | | | LAB | | + + +---- + + + | Differentia | MANUAL | | EXTERNAL | | | l Type | | | LAB | | + + +---- + + + | Nucleated | 1 (H) | /10 0WBC | EXTERNAL | | | Red Blood | | | LAB | | | Cells | | | | | + + +---- + + + | Segmented | 77 | % | EXTERNAL | | | Neutrophils | | | LAB | | | Manual | | | | | + + +---- + + + | Lymphocytes | 18 | % | EXTERNAL | | | Manual | | | LAB | | + + +---- + + + | Monocytes | 5 | % | EXTERNAL | | | Manual | | | LAB | | + + +---- + + + | Absolute | 7.09 | 1.9 0 - 7.40 | EXTERNAL | | | Neutrophils | | K/u L | LAB | | + + +---- + + + | Absolute | 1.66 | 1.0 0 - 3.90 | EXTERNAL | | | Lymphocytes | | K/u L | LAB | | + + +---- + + + | Absolute | 0.46 | 0.0 0 - 0.80 | EXTERNAL | | | Monocytes | | K/u L | LAB | | + + +---- + + + | RBC | 2+Comment: | | EXTERNAL | | | Morphology | HYPO2+MICRO2+ANISONORMAL | | LAB | | | | PLT MORPHTesting | | | | | | performed at [facility], [address] | | | | | [facility], | | | | | | [place] [address] | | | | | |ANISO | | | | | |NORMAL PLT MORPH | | | | | |Testing performed at [facility], [address] [facility], [place] [address] | | | | | | | | | | + + +---- + + + + + | Specimen | + + | Blood specimen | | (specimen) | + + + +---------+ + + | Performing | Address | City/State/Zipcode | Phone Number | | Organization | | | | + +---------+ + + | EXTERNAL LAB | | | | + +---------+ + + C-Reactive Protein (05/23/2018 4:28 AM PDT) + + + + + + | Component | Value | Ref Range | Performed | Pathologist | | | | | At | Signature | + + + + + + | CRP | 5.3 (H)Comment: Testing | mg/dL | EXTERNAL | | | | performed at [facility], [address] | | LAB | | | | [address], | | | | | | [place] [address] | | | | + + + + + + + + | Specimen | + + | Blood specimen | | (specimen) | + + + +---------+ + + | Performing | Address | City/State/Zipcode | Phone Number | | Organization | | | | + +---------+ + + | EXTERNAL LAB | | | | + +---------+ + + Magnesium (05/23/2018 4:28 AM PDT) + + + + + + | Component | Value | Ref Range | Performed | Pathologist | | | | | At | Signature | + + + + + + | Magnesium | 1.9Comment: Testing | 1.7 - 2.4 mg/dL | EXTERNAL | | | | performed at [facility];[address] | | LAB | | | | [address];[place] | | | | | | [address] | | | | + + + [...] + +---------+ + + Comprehensive Metabolic Panel (05/23/2018 4:28 AM PDT) + + + + + + | Component | Value | Ref Range | Performed | Pathologist | | | | | At | Signature | + + + + + + | Na | 133 (L) | 135 - 145 | EXTERNAL | | | | | mmol/L | LAB | | + + + + + + | K | 3.8 | 3.5 - 4.9 | EXTERNAL | | | | | mmol/L | LAB | | + + + + + + | Cl | 93 (L) | 99 - 109 mmol/L | EXTERNAL | | | | | | LAB | | + + + + + + | CO2 | 30 | 23 - 32 mmol/L | EXTERNAL | | | | | | LAB | | + + + + + + | Anion Gap | 14 | 5 - 20 mmol/L | EXTERNAL | | | | | | LAB | | + + + + + + | Glucose, | 86 | 65 - 99 mg/dL | EXTERNAL | | | Fasting | | | LAB | | + + + + + + | BUN | 16 | 8 - 25 mg/dL | EXTERNAL | | | | | | LAB | | + + + + + + | Creatinine | 0.8 | 0.70 - 1.30 | EXTERNAL | | | | | mg/dL | LAB | | + + + + + + | BUN/Creatin | 20 | | EXTERNAL | | | ine Ratio | | | LAB | | + + + + + + | Calcium | 7.5 (L) | 8.5 - 10.5 | EXTERNAL | | | | | mg/dL | LAB | | + + + + + + | Protein, | 5.9 (L) | 6.3 - 8.2 g/dL | EXTERNAL | | | Total | | | LAB | | + + + + + + | Albumin | 2.3 (L) | 3.6 - 5.0 g/dL | EXTERNAL | | | | | | LAB | | + + + + + + | Globulin | 3.6 | 1.3 - 4.9 g/dL | EXTERNAL | | | | | | LAB | | + + + + + + | A/G Ratio | 0.6 (L) | 1.0 - 2.4 | EXTERNAL | | | | | | LAB | | + + + + + + | Bilirubin | 0.3 | 0.1 - 1.5 mg/dL | EXTERNAL | | | Total | | | LAB | | + + + + + + | ALP, | 138 (H) | 35 - 115 U/L | EXTERNAL | | | External | | | LAB | | + + + + + + | AST | 46 (H) | 10 - 45 U/L | EXTERNAL | | | | | | LAB | | + + + + + + | ALT | 58 | 10 - 65 U/L | EXTERNAL | | | | | | LAB | | + + + + + + | Estimated | >60Comment: GFR <60: | mL/min/1.73m2 | EXTERNAL | | | GFR | CHRONIC KIDNEY DISEASE, | | LAB | | | | IF FOUND OVER A 3 MONTH | | | | | | PERIOD.GFR <15: KIDNEY | | | | | | FAILURE.FOR | | | | | | AMERICANS, MULTIPLY THE | | | | | | CALCULATED GFR BY | | | | | | 1.210.This eGFR is | | | | | | calculated using the | | | | | | MDRD IDMS traceable | | | | | | equation.Testing | | | | | | performed at [facility], [address] | | | | | [facility], | | | | | | [place] [address] | | | | + + + + + + + + | Specimen | + + | Blood specimen | | (specimen) | + + + +---------+ + + | Performing | Address | City/State/Zipcode | Phone Number | | Organization | | | | + +---------+ + + | EXTERNAL LAB | | | | + +---------+ + + Potassium (05/23/2018 2:51 AM PDT) + + + + + + | Component | Value | Ref Range | Performed | Pathologist | | | | | At | Signature | + + + + + + | K | 3.7Comment: Testing | 3.5 - 4.9 | EXTERNAL | | | | performed at [facility], [address] | mmol/L | LAB | | | | [address], | | | | | | [place] [address] | | | | + + + + + + + + | Specimen | + + | Blood specimen | | (specimen) | + + + +---------+ + + | Performing | Address | City/State/Zipcode | Phone Number | | Organization | | | | + +---------+ + + | EXTERNAL LAB | | | | + +---------+ + + POC Glucose (05/22/2018 9:38 PM PDT) + + + + + + | Component | Value | Ref Range | Performed | Pathologist | | | | | At | Signature | + + + + + + | Glucose, | 162 (H)Comment: Testing | 65 - 99 mg/dL | EXTERNAL | | | Fingerstick | performed at [facility];[address] | | LAB | | | | [address];[place], [place] | | | | | | [address] | | | | + + + + + + + + | Specimen | + + | | + + + +---------+ + + | Performing | Address | City/State/Zipcode | Phone Number | | Organization | | | | + +---------+ + + | EXTERNAL LAB | | | | + +---------+ + + POC Glucose (05/22/2018 5:21 PM PDT) + + + + + + | Component | Value | Ref Range | Performed | Pathologist | | | | | At | Signature | + + + + + + | Glucose, | 100 (H)Comment: Testing | 65 - 99 mg/dL | EXTERNAL | | | Fingerstick | performed at [facility];[address] | | LAB | | | | [address];[place] | | | | | | [address] | | | | + + + + + + + + | Specimen | + + | | + + + +---------+ + + | Performing | Address | City/State/Zipcode | Phone Number | | Organization | | | | + +---------+ + + | EXTERNAL LAB | | | | + +---------+ + + POC Glucose (05/22/2018 4:24 PM PDT) + + + + + + | Component | Value | Ref Range | Performed | Pathologist | | | | | At | Signature | + + + + + + | Glucose, | 127 (H)Comment: Testing | 65 - 99 mg/dL | EXTERNAL | | | Fingerstick | performed at [facility];[address] | | LAB | | | | [address];[place] | | | | | | [address] | | | | + + + + + + + + | Specimen | + + | | + + + +---------+ + + | Performing | Address | City/State/Zipcode | Phone Number | | Organization | | | | + +---------+ + + | EXTERNAL LAB | | | | + +---------+ + + Potassium (05/22/2018 2:12 PM PDT) + + + + + + | Component | Value | Ref Range | Performed | Pathologist | | | | | At | Signature | + + + + + + | K | 3.8Comment: Testing | 3.5 - 4.9 | EXTERNAL | | | | performed at [facility];[address] | mmol/L | LAB | | | | [address] [facility];[place] | | | | | | [address] | | | | + + + + + + + + | Specimen | + + | Blood specimen | | (specimen) | + + + +---------+ + + | Performing | Address | City/State/Zipcode | Phone Number | | Organization | | | | + +---------+ + + | EXTERNAL LAB | | | | + +---------+ + + Potassium (05/22/2018 11:20 AM PDT) + + + + + + | Component | Value | Ref Range | Performed | Pathologist | | | | | At | Signature | + + + + + + | K | 3.5Comment: Testing | 3.5 - 4.9 | EXTERNAL | | | | performed at [facility], [address] | mmol/L | LAB | | | | [address], | | | | | | [place] [address] | | | | + + + + + + + + | Specimen | + + | Blood specimen | | (specimen) | + + + +---------+ + + | Performing | Address | City/State/Zipcode | Phone Number | | Organization | | | | + +---------+ + + | EXTERNAL LAB | | | | + +---------+ + + POC Glucose (05/22/2018 11:08 AM PDT) + + + + + + | Component | Value | Ref Range | Performed | Pathologist | | | | | At | Signature | + + + + + + | Glucose, | 142 (H)Comment: Testing | 65 - 99 mg/dL | EXTERNAL | | | Fingerstick | performed at [facility];[address] | | LAB | | | | [address];[place], [place] | | | | | | [address] | | | | + + + + + + + + | Specimen | + + | | + + + +---------+ + + | Performing | Address | City/State/Zipcode | Phone Number | | Organization | | | | + +---------+ + + | EXTERNAL LAB | | | | + +---------+ + + POC Glucose (05/22/2018 4:59 AM PDT) + + + + + + | Component | Value | Ref Range | Performed | Pathologist | | | | | At | Signature | + + + + + + | Glucose, | 95Comment: Testing | 65 - 99 mg/dL | EXTERNAL | | | Fingerstick | performed at [facility];[address] | | LAB | | | | [address];[place], [place] | | | | | | [address] | | | | + + + + + + + + | Specimen | + + | | + + + +---------+ + + | Performing | Address | City/State/Zipcode | Phone Number | | Organization | | | | + +---------+ + + | EXTERNAL LAB | | | | + +---------+ + + CBC no Differential (05/22/2018 3:14 AM PDT) + + + + + + | Component | Value | Ref Range | Performed | Pathologist | | | | | At | Signature | + + + + + + | WBC | 9.84 | 3.80 - 11.00 | EXTERNAL | | | | | K/uL | LAB | | + + + + + + | Non- | 3.56 (L) | 4.20 - 5.70 | EXTERNAL | | | Red Blood | | M/uL | LAB | | | Cells | | | | | | Counted | | | | | + + + + + + | Hemoglobin | 8.5 (L) | 13.2 - 17.0 | EXTERNAL | | | | | g/dL | LAB | | + + + + + + | Hematocrit, | 25.5 (L) | 39.0 - 50.0 % | EXTERNAL | | | POC | | | LAB | | + + + + + + | MCV | 71.7 (L) | 80.0 - 100.0 fl | EXTERNAL | | | | | | LAB | | + + + + + + | MCH | 23.7 (L) | 27.0 - 34.0 pg | EXTERNAL | | | | | | LAB | | + + + + + + | MCHC | 33.1 | 32.0 - 35.5 | EXTERNAL | | | | | g/dL | LAB | | + + + + + + | RDW-CV | 63.0 (H) | 37 - 53 fl | EXTERNAL | | | | | | LAB | | + + + + + + | Platelet | 219 | 150 - 400 K/uL | EXTERNAL | | | Count | | | LAB | | | Plasma | | | | | + + + + + + | MPV | 8.6Comment: Testing | fl | EXTERNAL | | | | performed at [facility], [address] | | LAB | | | | [address], | | | | | | [place] [address] | | | | + + + + + + + + | Specimen | + + | Blood specimen | | (specimen) | + + + +---------+ + + | Performing | Address | City/State/Zipcode | Phone Number | | Organization | | | | + +---------+ + + | EXTERNAL LAB | | | | + +---------+ + + Magnesium (05/22/2018 3:14 AM PDT) + + + + + + | Component | Value | Ref Range | Performed | Pathologist | | | | | At | Signature | + + + + + + | Magnesium | 1.9Comment: Testing | 1.7 - 2.4 mg/dL | EXTERNAL | | | | performed at [facility];[address] | | LAB | | | | [address];[place], [place] | | | | | | [address] | | | | + + + + + + + + | Specimen | + + | Blood specimen | | (specimen) | + + + +---------+ + + | Performing | Address | City/State/Zipcode | Phone Number | | Organization | | | | + +---------+ + + | EXTERNAL LAB | | | | + +---------+ + + Basic Metabolic Panel (05/22/2018 3:14 AM PDT) + + + + + + | Component | Value | Ref Range | Performed | Pathologist | | | | | At | Signature | + + + + + + | Na | 131 (L) | 135 - 145 | EXTERNAL | | | | | mmol/L | LAB | | + + + + + + | K | 3.5 | 3.5 - 4.9 | EXTERNAL | | | | | mmol/L | LAB | | + + + + + + | Cl | 93 (L) | 99 - 109 mmol/L | EXTERNAL | | | | | | LAB | | + + + + + + | CO2 | 28 | 23 - 32 mmol/L | EXTERNAL | | | | | | LAB | | + + + + + + | Anion Gap | 13 | 5 - 20 mmol/L | EXTERNAL | | | | | | LAB | | + + + + + + | Glucose, | 85 | 65 - 99 mg/dL | EXTERNAL | | | Fasting | | | LAB | | + + + + + + | BUN | 21 | 8 - 25 mg/dL | EXTERNAL | | | | | | LAB | | + + + + + + | Creatinine | 0.92 | 0.70 - 1.30 | EXTERNAL | | | | | mg/dL | LAB | | + + + + + + | BUN/Creatin | 23 | | EXTERNAL | | | ine Ratio | | | LAB | | + + + + + + | Calcium | 7.8 (L) | 8.5 - 10.5 | EXTERNAL | | | | | mg/dL | LAB | | + + + + + + | Estimated | >60Comment: GFR <60: | mL/min/1.73m2 | EXTERNAL | | | GFR | CHRONIC KIDNEY DISEASE, | | LAB | | | | IF FOUND OVER A 3 MONTH | | | | | | PERIOD.GFR <15: KIDNEY | | | | | | FAILURE.FOR | | | | | | AMERICANS, MULTIPLY THE | | | | | | CALCULATED GFR BY | | | | | | 1.210.This eGFR is | | | | | | calculated using the | | | | | | MDRD IDMS traceable | | | | | | equation.Testing | | | | | | performed at [facility];[address] | | | | | | [facility];[place], [place] | | | | | | [address] | | | | + + + + + + + + | Specimen | + + | Blood specimen | | (specimen) | + + + +---------+ + + | Performing | Address | City/State/Zipcode | Phone Number | | Organization | | | | + +---------+ + + | EXTERNAL LAB | | | | + +---------+ + + Potassium (05/21/2018 10:44 PM PDT) + + + + + + | Component | Value | Ref Range | Performed | Pathologist | | | | | At | Signature | + + + + + + | K | 3.8Comment: Testing | 3.5 - 4.9 | EXTERNAL | | | | performed at [facility], [address] | mmol/L | LAB | | | | [address], | | | | | | [place] [address] | | | | + + + + + + + + | Specimen | + + | Blood specimen | | (specimen) | + + + +---------+ + + | Performing | Address | City/State/Zipcode | Phone Number | | Organization | | | | + +---------+ + + | EXTERNAL LAB | | | | + +---------+ + + POC Glucose (05/21/2018 9:46 PM PDT) + + + + + + | Component | Value | Ref Range | Performed | Pathologist | | | | | At | Signature | + + + + + + | Glucose, | 118 (H)Comment: Testing | 65 - 99 mg/dL | EXTERNAL | | | Fingerstick | performed at [facility];[address] | | LAB | | | | [address];[place], [place] | | | | | | [address] | | | | + + + + + + + + | Specimen | + + | | + + + +---------+ + + | Performing | Address | City/State/Zipcode | Phone Number | | Organization | | | | + +---------+ + + | EXTERNAL LAB | | | | + +---------+ + + POC Glucose (05/21/2018 4:25 PM PDT) + + + + + + | Component | Value | Ref Range | Performed | Pathologist | | | | | At | Signature | + + + + + + | Glucose, | 96Comment: Testing | 65 - 99 mg/dL | EXTERNAL | | | Fingerstick | performed at [facility];[address] | | LAB | | | | [address];[place] | | | | | | [address] | | | | + + + + + + + + | Specimen | + + | | + + + +---------+ + + | Performing | Address | City/State/Zipcode | Phone Number | | Organization | | | | + +---------+ + + | EXTERNAL LAB | | | | + +---------+ + + Potassium (05/21/2018 1:49 PM PDT) + + + + + + | Component | Value | Ref Range | Performed | Pathologist | | | | | At | Signature | + + + + + + | K | 3.9Comment: Testing | 3.5 - 4.9 | EXTERNAL | | | | performed at [facility], [address] | mmol/L | LAB | | | | [address], | | | | | | [place] [address] | | | | + + + + + + + + | Specimen | + + | Blood specimen | | (specimen) | + + + +---------+ + + | Performing | Address | City/State/Zipcode | Phone Number | | Organization | | | | + +---------+ + + | EXTERNAL LAB | | | | + +---------+ + + POC Glucose (05/21/2018 12:51 PM PDT) + + + + + + | Component | Value | Ref Range | Performed | Pathologist | | | | | At | Signature | + + + + + + | Glucose, | 122 (H)Comment: Testing | 65 - 99 mg/dL | EXTERNAL | | | Fingerstick | performed at [facility];[address] | | LAB | | | | [address];[place], [place] | | | | | | [address] | | | | + + + + + + + + | Specimen | + + | | + + + +---------+ + + | Performing | Address | City/State/Zipcode | Phone Number | | Organization | | | | + +---------+ + + | EXTERNAL LAB | | | | + +---------+ + + CBC no Differential (05/21/2018 5:09 AM PDT) + + + + + + | Component | Value | Ref Range | Performed | Pathologist | | | | | At | Signature | + + + + + + | WBC | 11.00 | 3.80 - 11.00 | EXTERNAL | | | | | K/uL | LAB | | + + + + + + | Non- | 3.44 (L) | 4.20 - 5.70 | EXTERNAL | | | Red Blood | | M/uL | LAB | | | Cells | | | | | | Counted | | | | | + + + + + + | Hemoglobin | 8.2 (L) | 13.2 - 17.0 | EXTERNAL | | | | | g/dL | LAB | | + + + + + + | Hematocrit, | 24.4 (L) | 39.0 - 50.0 % | EXTERNAL | | | POC | | | LAB | | + + + + + + | MCV | 70.9 (L) | 80.0 - 100.0 fl | EXTERNAL | | | | | | LAB | | + + + + + + | MCH | 23.8 (L) | 27.0 - 34.0 pg | EXTERNAL | | | | | | LAB | | + + + + + + | MCHC | 33.6 | 32.0 - 35.5 | EXTERNAL | | | | | g/dL | LAB | | + + + + + + | RDW-CV | 58.2 (H) | 37 - 53 fl | EXTERNAL | | | | | | LAB | | + + + + + + | Platelet | 204 | 150 - 400 K/uL | EXTERNAL | | | Count | | | LAB | | | Plasma | | | | | + + + + + + | MPV | 8.9Comment: Testing | fl | EXTERNAL | | | | performed at [facility], [address] | | LAB | | | | [facility], | | | | | | [place] [address] | | | | + + + + + + + + | Specimen | + + | Blood specimen | | (specimen) | + + + +---------+ + + | Performing | Address | City/State/Zipcode | Phone Number | | Organization | | | | + +---------+ + + | EXTERNAL LAB | | | | + +---------+ + + Magnesium (05/21/2018 5:09 AM PDT) + + + + + + | Component | Value | Ref Range | Performed | Pathologist | | | | | At | Signature | + + + + + + | Magnesium | 2.2Comment: Testing | 1.7 - 2.4 mg/dL | EXTERNAL | | | | performed at [facility];[address] | | LAB | | | | [address];[place], [place] | | | | | | [address] | | | | + + + + + + + + | Specimen | + + | Blood specimen | | (specimen) | + + + +---------+ + + | Performing | Address | City/State/Zipcode | Phone Number | | Organization | | | | + +---------+ + + | EXTERNAL LAB | | | | + +---------+ + + Basic Metabolic Panel (05/21/2018 5:09 AM PDT) + + + + + + | Component | Value | Ref Range | Performed | Pathologist | | | | | At | Signature | + + + + + + | Na | 130 (L) | 135 - 145 | EXTERNAL | | | | | mmol/L | LAB | | + + + + + + | K | 4.2 | 3.5 - 4.9 | EXTERNAL | | | | | mmol/L | LAB | | + + + + + + | Cl | 95 (L) | 99 - 109 mmol/L | EXTERNAL | | | | | | LAB | | + + + + + + | CO2 | 25 | 23 - 32 mmol/L | EXTERNAL | | | | | | LAB | | + + + + + + | Anion Gap | 13 | 5 - 20 mmol/L | EXTERNAL | | | | | | LAB | | + + + + + + | Glucose, | 95 | 65 - 99 mg/dL | EXTERNAL | | | Fasting | | | LAB | | + + + + + + | BUN | 22 | 8 - 25 mg/dL | EXTERNAL | | | | | | LAB | | + + + + + + | Creatinine | 0.85 | 0.70 - 1.30 | EXTERNAL | | | | | mg/dL | LAB | | + + + + + + | BUN/Creatin | 26 | | EXTERNAL | | | ine Ratio | | | LAB | | + + + + + + | Calcium | 7.8 (L) | 8.5 - 10.5 | EXTERNAL | | | | | mg/dL | LAB | | + + + + + + | Estimated | >60Comment: GFR <60: | mL/min/1.73m2 | EXTERNAL | | | GFR | CHRONIC KIDNEY DISEASE, | | LAB | | | | IF FOUND OVER A 3 MONTH | | | | | | PERIOD.GFR <15: KIDNEY | | | | | | FAILURE.FOR | | | | | | AMERICANS, MULTIPLY THE | | | | | | CALCULATED GFR BY | | | | | | 1.210.This eGFR is | | | | | | calculated using the | | | | | | MDRD IDMS traceable | | | | | | equation.Testing | | | | | | performed at [facility];[address] | | | | | | [facility];[place], [place] | | | | | | [address] | | | | + + + + + + + + | Specimen | + + | Blood specimen | | (specimen) | + + + +---------+ + + | Performing | Address | City/State/Zipcode | Phone Number | | Organization | | | | + +---------+ + + | EXTERNAL LAB | | | | + +---------+ + + POC Glucose (05/21/2018 5:04 AM PDT) + + + + + + | Component | Value | Ref Range | Performed | Pathologist | | | | | At | Signature | + + + + + + | Glucose, | 103 (H)Comment: Testing | 65 - 99 mg/dL | EXTERNAL | | | Fingerstick | performed at [facility];[address] | | LAB | | | | [address];[place] | | | | | | [address] | | | | + + + + + + + + | Specimen | + + | | + + + +---------+ + + | Performing | Address | City/State/Zipcode | Phone Number | | Organization | | | | + +---------+ + + | EXTERNAL LAB | | | | + +---------+ + + POC Glucose (05/20/2018 9:19 PM PDT) + + + + + + | Component | Value | Ref Range | Performed | Pathologist | | | | | At | Signature | + + + + + + | Glucose, | 128 (H)Comment: Testing | 65 - 99 mg/dL | EXTERNAL | | | Fingerstick | performed at [facility];[address] | | LAB | | | | [address];[place] | | | | | | [address] | | | | + + + + + + + + | Specimen | + + | | + + + +---------+ + + | Performing | Address | City/State/Zipcode | Phone Number | | Organization | | | | + +---------+ + + | EXTERNAL LAB | | | | + +---------+ + + Potassium (05/20/2018 6:22 PM PDT) + + + + + + | Component | Value | Ref Range | Performed | Pathologist | | | | | At | Signature | + + + + + + | K | 4.6Comment: Testing | 3.5 - 4.9 | EXTERNAL | | | | performed at [facility], [address] | mmol/L | LAB | | | | [address], | | | | | | [place] [address] | | | | + + + + + + + + | Specimen | + + | Blood specimen | | (specimen) | + + + +---------+ + + | Performing | Address | City/State/Zipcode | Phone Number | | Organization | | | | + +---------+ + + | EXTERNAL LAB | | | | + +---------+ + + POC Glucose (05/20/2018 4:22 PM PDT) + + + + + + | Component | Value | Ref Range | Performed | Pathologist | | | | | At | Signature | + + + + + + | Glucose, | 108 (H)Comment: Testing | 65 - 99 mg/dL | EXTERNAL | | | Fingerstick | performed at [facility];[address] | | LAB | | | | [address];[place] | | | | | | [address] | | | | + + + + + + + + | Specimen | + + | | + + + +---------+ + + | Performing | Address | City/State/Zipcode | Phone Number | | Organization | | | | + +---------+ + + | EXTERNAL LAB | | | | + +---------+ + + POC Glucose (05/20/2018 12:44 PM PDT) + + + + + + | Component | Value | Ref Range | Performed | Pathologist | | | | | At | Signature | + + + + + + | Glucose, | 120 (H)Comment: Testing | 65 - 99 mg/dL | EXTERNAL | | | Fingerstick | performed at [facility];[address] | | LAB | | | | [address];[place] | | | | | | [address] | | | | + + + + + + + + | Specimen | + + | | + + + +---------+ + + | Performing | Address | City/State/Zipcode | Phone Number | | Organization | | | | + +---------+ + + | EXTERNAL LAB | | | | + +---------+ + + Potassium (05/20/2018 12:07 PM PDT) + + + + + + | Component | Value | Ref Range | Performed | Pathologist | | | | | At | Signature | + + + + + + | K | 5.2 (H)Comment: Testing | 3.5 - 4.9 | EXTERNAL | | | | performed at [facility], [address] | mmol/L | LAB | | | | [address], | | | | | | [place] [address] | | | | + + + + + + + + | Specimen | + + | Blood specimen | | (specimen) | + + + +---------+ + + | Performing | Address | City/State/Zipcode | Phone Number | | Organization | | | | + +---------+ + + | EXTERNAL LAB | | | | + +---------+ + + POC Glucose (05/20/2018 5:50 AM PDT) + + + + + + | Component | Value | Ref Range | Performed | Pathologist | | | | | At | Signature | + + + + + + | Glucose, | 91Comment: Testing | 65 - 99 mg/dL | EXTERNAL | | | Fingerstick | performed at [facility];[address] | | LAB | | | | [address];[place] | | | | | | [address] | | | | + + + + + + + + | Specimen | + + | | + + + +---------+ + + | Performing | Address | City/State/Zipcode | Phone Number | | Organization | | | | + +---------+ + + | EXTERNAL LAB | | | | + +---------+ + + CBC no Differential (05/20/2018 4:36 AM PDT) + + + + + + | Component | Value | Ref Range | Performed | Pathologist | | | | | At | Signature | + + + + + + | WBC | 13.78 (H) | 3.80 - 11.00 | EXTERNAL | | | | | K/uL | LAB | | + + + + + + | Non- | 3.52 (L) | 4.20 - 5.70 | EXTERNAL | | | Red Blood | | M/uL | LAB | | | Cells | | | | | | Counted | | | | | + + + + + + | Hemoglobin | 8.2 (L) | 13.2 - 17.0 | EXTERNAL | | | | | g/dL | LAB | | + + + + + + | Hematocrit, | 25.0 (L) | 39.0 - 50.0 % | EXTERNAL | | | POC | | | LAB | | + + + + + + | MCV | 71.1 (L) | 80.0 - 100.0 fl | EXTERNAL | | | | | | LAB | | + + + + + + | MCH | 23.2 (L) | 27.0 - 34.0 pg | EXTERNAL | | | | | | LAB | | + + + + + + | MCHC | 32.6 | 32.0 - 35.5 | EXTERNAL | | | | | g/dL | LAB | | + + + + + + | RDW-CV | 56.9 (H) | 37 - 53 fl | EXTERNAL | | | | | | LAB | | + + + + + + | Platelet | 212 | 150 - 400 K/uL | EXTERNAL | | | Count | | | LAB | | | Plasma | | | | | + + + + + + | MPV | 8.5Comment: Testing | fl | EXTERNAL | | | | performed at [facility], [address] | | LAB | | | | [address], | | | | | | [place] [address] | | | | + + + + + + + + | Specimen | + + | Blood specimen | | (specimen) | + + + +---------+ + + | Performing | Address | City/State/Zipcode | Phone Number | | Organization | | | | + +---------+ + + | EXTERNAL LAB | | | | + +---------+ + + Magnesium (05/20/2018 4:36 AM PDT) + + + + + + | Component | Value | Ref Range | Performed | Pathologist | | | | | At | Signature | + + + + + + | Magnesium | 2.5 (H)Comment: Testing | 1.7 - 2.4 mg/dL | EXTERNAL | | | | performed at [facility];[address] | | LAB | | | | [address];[place], [place] | | | | | | [address] | | | | + + + + + + + + | Specimen | + + | Blood specimen | | (specimen) | + + + +---------+ + + | Performing | Address | City/State/Zipcode | Phone Number | | Organization | | | | + +---------+ + + | EXTERNAL LAB | | | | + +---------+ + + Basic Metabolic Panel (05/20/2018 4:36 AM PDT) + + + + + + | Component | Value | Ref Range | Performed | Pathologist | | | | | At | Signature | + + + + + + | Na | 129 (L) | 135 - 145 | EXTERNAL | | | | | mmol/L | LAB | | + + + + + + | K | 4.9 | 3.5 - 4.9 | EXTERNAL | | | | | mmol/L | LAB | | + + + + + + | Cl | 96 (L) | 99 - 109 mmol/L | EXTERNAL | | | | | | LAB | | + + + + + + | CO2 | 24 | 23 - 32 mmol/L | EXTERNAL | | | | | | LAB | | + + + + + + | Anion Gap | 14 | 5 - 20 mmol/L | EXTERNAL | | | | | | LAB | | + + + + + + | Glucose, | 91 | 65 - 99 mg/dL | EXTERNAL | | | Fasting | | | LAB | | + + + + + + | BUN | 28 (H) | 8 - 25 mg/dL | EXTERNAL | | | | | | LAB | | + + + + + + | Creatinine | 0.94 | 0.70 - 1.30 | EXTERNAL | | | | | mg/dL | LAB | | + + + + + + | BUN/Creatin | 30 | | EXTERNAL | | | ine Ratio | | | LAB | | + + + + + + | Calcium | 8.0 (L) | 8.5 - 10.5 | EXTERNAL | | | | | mg/dL | LAB | | + + + + + + | Estimated | >60Comment: GFR <60: | mL/min/1.73m2 | EXTERNAL | | | GFR | CHRONIC KIDNEY DISEASE, | | LAB | | | | IF FOUND OVER A 3 MONTH | | | | | | PERIOD.GFR <15: KIDNEY | | | | | | FAILURE.FOR | | | | | | AMERICANS, MULTIPLY THE | | | | | | CALCULATED GFR BY | | | | | | 1.210.This eGFR is | | | | | | calculated using the | | | | | | MDRD IDMS traceable | | | | | | equation.Testing | | | | | | performed at [facility];[address] | | | | | | [facility];[place], [place] | | | | | | [address] | | | | + + + + + + + + | Specimen | + + | Blood specimen | | (specimen) | + + + +---------+ + + | Performing | Address | City/State/Zipcode | Phone Number | | Organization | | | | + +---------+ + + | EXTERNAL LAB | | | | + +---------+ + + POC Glucose (05/19/2018 9:15 PM PDT) + + + + + + | Component | Value | Ref Range | Performed | Pathologist | | | | | At | Signature | + + + + + + | Glucose, | 135 (H)Comment: Testing | 65 - 99 mg/dL | EXTERNAL | | | Fingerstick | performed at [facility];[address] | | LAB | | | | [address];[place] | | | | | | [address] | | | | + + + + + + + + | Specimen | + + | | + + + +---------+ + + | Performing | Address | City/State/Zipcode | Phone Number | | Organization | | | | + +---------+ + + | EXTERNAL LAB | | | | + +---------+ + + POC Glucose (05/19/2018 4:18 PM PDT) + + + + + + | Component | Value | Ref Range | Performed | Pathologist | | | | | At | Signature | + + + + + + | Glucose, | 142 (H)Comment: Testing | 65 - 99 mg/dL | EXTERNAL | | | Fingerstick | performed at [facility];[address] | | LAB | | | | [address];[place] | | | | | | [address] | | | | + + + + + + + + | Specimen | + + | | + + + +---------+ + + | Performing | Address | City/State/Zipcode | Phone Number | | Organization | | | | + +---------+ + + | EXTERNAL LAB | | | | + +---------+ + + Potassium (05/19/2018 1:52 PM PDT) + + + + + + | Component | Value | Ref Range | Performed | Pathologist | | | | | At | Signature | + + + + + + | K | 4.5Comment: Testing | 3.5 - 4.9 | EXTERNAL | | | | performed at [facility], [address] | mmol/L | LAB | | | | [address], | | | | | | [place] [address] | | | | + + + + + + + + | Specimen | + + | Blood specimen | | (specimen) | + + + +---------+ + + | Performing | Address | City/State/Zipcode | Phone Number | | Organization | | | | + +---------+ + + | EXTERNAL LAB | | | | + +---------+ + + POC Glucose (05/19/2018 11:33 AM PDT) + + + + + + | Component | Value | Ref Range | Performed | Pathologist | | | | | At | Signature | + + + + + + | Glucose, | 130 (H)Comment: Testing | 65 - 99 mg/dL | EXTERNAL | | | Fingerstick | performed at [facility];[address] | | LAB | | | | [address];[place] | | | | | | [address] | | | | + + + + + + + + | Specimen | + + | | + + + +---------+ + + | Performing | Address | City/State/Zipcode | Phone Number | | Organization | | | | + +---------+ + + | EXTERNAL LAB | | | | + +---------+ + + Eosinophil Smear, Urine (05/19/2018 11:25 AM PDT) + + + + + + | Component | Value | Ref Range | Performed | Pathologist | | | | | At | Signature | + + + + + + | Eosinophils | NO EOSINOPHILS | % | EXTERNAL | | | , Urine | SEENComment: Testing | | LAB | | | | performed at [facility], [address] | | | | | | [address], | | | | | | [place] [address] | | | | + + + + + + + + | Specimen | + + | | + + + +---------+ + + | Performing | Address | City/State/Zipcode | Phone Number | | Organization | | | | + +---------+ + + | EXTERNAL LAB | | | | + +---------+ + + ECHO Complete (05/19/2018 8:18 AM PDT) + + | Specimen | + + | | + + + + + | Impressions | Performed At | + + + | 1. The left ventricle is normal in size and systolic function EF | | | 55-60%. 2. Bioprosthetic aortic valve with mild perivalvular leak | | | noted. 3. There is a small, generalized pericardial effusion present. | | + + + + + + | Narrative | Performed At | + + + | Patient Name: JOSÉ MIGUEL FLOYD Date of : 1960 | | | Performing Physician: Ciaran Min | | | | | | INDICATIONS Pericardial effusion, S/P AVR | | | CONCLUSIONS 1. The left ventricle is normal in size and | | | systolic function EF 55-60%. 2. Bioprosthetic aortic valve with mild | | | perivalvular leak noted. 3. There is a small, generalized pericardial | | | effusion present. FINDINGS -------- ECG rhythm: Sinus rhythm. | | | Study: This was a technically difficult study with suboptimal views, | | | patient was in the chair at the time of the study. Left Ventricle: | | | Overall left ventricular systolic function is normal with, an EF | | | between 55 - 60 %. Left Ventricle: The left ventricle cavity size is | | | normal. Left Ventricle: There is paradoxical/dysynergic septal motion | | | consistent with post-operative status. Aortic Valve: Bioprosthetic | | | aortic valve with mild perivalvular leak noted. Pericardium: There is | | | a small, generalized pericardial effusion present. Pericardium: | | | There is no evidence of cardiac tamponade. Pericardium: No pleural | | | effusion seen. MEASUREMENTS Lithographic Photographer: | | | Authenticated by: Ciaran Min Report Date/Time: 05-19-2018 | | | 12:21:22 | | + + + + + | Procedure Note | + + | Hansel, Erik Conversion - 05/03/2019 11:06 AM PDT Patient Name: Paulina FLOYD of | | : 1960 Performing Physician: Ciaran | | [place] INDICATIONS------ | | -----Pericardial effusion, S/P AVR CONCLUSIONS 1. The left ventricle is normal | | in size and systolic function EF 55-60%.2. Bioprosthetic aortic valve with mild | | perivalvular leak noted.3. There is a small, generalized pericardial effusion present. | | FINDINGS--------ECG rhythm: Sinus rhythm.Study: This was a technically difficult study | | with suboptimal views, patient was in the chair at the time of the study.Left Ventricle: | | Overall left ventricular systolic function is normal with, an EF between 55 - 60 %.Left | | Ventricle: The left ventricle cavity size is normal.Left Ventricle: There is | | paradoxical/dysynergic septal motion consistent with post-operative status.Aortic Valve: | | Bioprosthetic aortic valve with mild perivalvular leak noted.Pericardium: There is a | | small, generalized pericardial effusion present.Pericardium: There is no evidence of | | cardiac tamponade.Pericardium: No pleural effusion seen. MEASUREMENTS | | Lithographic Photographer: Authenticated by: Ciaran MinReport Date/Time: 05-19-2018 12:21:22 | | IMPRESSION: 1. The left ventricle is normal in size and systolic function EF 55-60%.2. | | Bioprosthetic aortic valve with mild perivalvular leak noted.3. There is a small, | | generalized pericardial effusion present. | |FINDINGS | |-------- | |ECG rhythm: Sinus rhythm. | |Study: This was a technically difficult study with suboptimal views, patient was in the dav ir at the time of the study. | |Left Ventricle: Overall left ventricular systolic function is normal with, an EF between 55 - 60 %. | |Left Ventricle: The left ventricle cavity size is normal. | |Left Ventricle: There is paradoxical/dysynergic septal motion consistent with post-operativ e status. | |Aortic Valve: Bioprosthetic aortic valve with mild perivalvular leak noted. | |Pericardium: There is a small, generalized pericardial effusion present. | |Pericardium: There is no evidence of cardiac tamponade. | |Pericardium: No pleural effusion seen. | | | |MEASUREMENTS | | | | | |Lithographic Photographer: | |Authenticated by: Ciaran Min | |Report Date/Time: 05-19-2018 12:21:22 | | | |IMPRESSION: | |1. The left ventricle is normal in size and systolic function EF 55-60%. | |2. Bioprosthetic aortic valve with mild perivalvular leak noted. | |3. There is a small, generalized pericardial effusion present. | + + XR Chest 2 Vws (05/19/2018 7:42 AM PDT) + + | Specimen | + + | | + + + + + | Impressions | Performed At | + + + | 1. Mild left basilar opacity to likely present atelectasis with | | | small left-sided pleural effusion. 2. PICC line catheter tip | | | located in the region of the right atrium. | | + + + + + + | Narrative | Performed At | + + + | JOSÉ MIGUEL FLOYD XR CHEST 2 VIEW FRONTAL AND LATERAL HISTORY: | | | 58 years. Male. Evaluate tubes and lines. TECHNIQUE: Frontal | | | and lateral views of the chest were obtained. COMPARISON: | | | 05/18/2018 FINDINGS: Heart is diffusely enlarged but stable in | | | size. Midline sternotomy wires are intact. Note is made of prosthetic | | | cardiac valve. PICC line catheter tip located in region of the right | | | atrium. No pulmonary vascular congestion. No pneumothorax. Low lung | | | volumes. Mild left basilar opacity to likely represent atelectasis and | | | small left-sided pleural effusion. | | + + + + + | Procedure Note | + + | Erik Hamm - 05/03/2019 11:06 AM [facility] CHEST 2 VIEW | | FRONTAL AND LATERAL HISTORY:58 years. Male. Evaluate tubes and lines. TECHNIQUE:Frontal | | and lateral views of the chest were obtained. COMPARISON:05/18/2018 FINDINGS:Heart is | | diffusely enlarged but stable in size. Midline sternotomy wires are intact. Note is made | | of prosthetic cardiac valve. PICC line catheter tip located in region of the right | | atrium. No pulmonary vascular congestion. No pneumothorax. Low lung volumes. Mild left | | basilar opacity to likely represent atelectasis and small left-sided pleural effusion. | | IMPRESSION: 1. Mild left basilar opacity to likely present atelectasis with small | | left-sided pleural effusion.2. PICC line catheter tip located in the region of the | | right atrium. | |05/18/2018 | | | |FINDINGS: | |Heart is diffusely enlarged but stable in size. Midline sternotomy wires are intact. Note i s made of prosthetic cardiac valve. PICC line catheter tip located in region of the right at rium. No pulmonary vascular congestion. No pneumothorax. Low lung | |volumes. Mild left basilar opacity to likely represent atelectasis and small left-sided ple ural effusion. | | | |IMPRESSION: | |1. Mild left basilar opacity to likely present atelectasis with small left-sided pleural e ffusion. | |2. PICC line catheter tip located in the region of the right atrium. | | | | | + + POC Glucose (05/19/2018 5:47 AM PDT) + + + + + + | Component | Value | Ref Range | Performed | Pathologist | | | | | At | Signature | + + + + + + | Glucose, | 131 (H)Comment: Testing | 65 - 99 mg/dL | EXTERNAL | | | Fingerstick | performed at [facility];[address] | | LAB | | | | [address];[place], [place] | | | | | | [address] | | | | + + + + + + + + | Specimen | + + | | + + + +---------+ + + | Performing | Address | City/State/Zipcode | Phone Number | | Organization | | | | + +---------+ + + | EXTERNAL LAB | | | | + +---------+ + + CBC no Differential (05/19/2018 5:05 AM PDT) + + + + + + | Component | Value | Ref Range | Performed | Pathologist | | | | | At | Signature | + + + + + + | WBC | 13.83 (H) | 3.80 - 11.00 | EXTERNAL | | | | | K/uL | LAB | | + + + + + + | Non- | 3.54 (L) | 4.20 - 5.70 | EXTERNAL | | | Red Blood | | M/uL | LAB | | | Cells | | | | | | Counted | | | | | + + + + + + | Hemoglobin | 8.2 (L) | 13.2 - 17.0 | EXTERNAL | | | | | g/dL | LAB | | + + + + + + | Hematocrit, | 25.2 (L) | 39.0 - 50.0 % | EXTERNAL | | | POC | | | LAB | | + + + + + + | MCV | 71.2 (L) | 80.0 - 100.0 fl | EXTERNAL | | | | | | LAB | | + + + + + + | MCH | 23.1 (L) | 27.0 - 34.0 pg | EXTERNAL | | | | | | LAB | | + + + + + + | MCHC | 32.5 | 32.0 - 35.5 | EXTERNAL | | | | | g/dL | LAB | | + + + + + + | RDW-CV | 56.9 (H) | 37 - 53 fl | EXTERNAL | | | | | | LAB | | + + + + + + | Platelet | 167 | 150 - 400 K/uL | EXTERNAL | | | Count | | | LAB | | | Plasma | | | | | + + + + + + | MPV | 8.9Comment: Testing | fl | EXTERNAL | | | | performed at [facility], [address] | | LAB | | | | [address], | | | | | | [place] [address] | | | | + + + + + + + + | Specimen | + + | Blood specimen | | (specimen) | + + + +---------+ + + | Performing | Address | City/State/Zipcode | Phone Number | | Organization | | | | + +---------+ + + | EXTERNAL LAB | | | | + +---------+ + + Magnesium (05/19/2018 5:05 AM PDT) + + + + + + | Component | Value | Ref Range | Performed | Pathologist | | | | | At | Signature | + + + + + + | Magnesium | 2.3Comment: Testing | 1.7 - 2.4 mg/dL | EXTERNAL | | | | performed at [facility] | | LAB | | | | [address];[place] | | | | | | [address] | | | | + + + + + + + + | Specimen | + + | Blood specimen | | (specimen) | + + + +---------+ + + | Performing | Address | City/State/Zipcode | Phone Number | | Organization | | | | + +---------+ + + | EXTERNAL LAB | | | | + +---------+ + + Basic Metabolic Panel (05/19/2018 5:05 AM PDT) + + + + + + | Component | Value | Ref Range | Performed | Pathologist | | | | | At | Signature | + + + + + + | Na | 128 (L) | 135 - 145 | EXTERNAL | | | | | mmol/L | LAB | | + + + + + + | K | 5.2 (H) | 3.5 - 4.9 | EXTERNAL | | | | | mmol/L | LAB | | + + + + + + | Cl | 97 (L) | 99 - 109 mmol/L | EXTERNAL | | | | | | LAB | | + + + + + + | CO2 | 22 (L) | 23 - 32 mmol/L | EXTERNAL | | | | | | LAB | | + + + + + + | Anion Gap | 14 | 5 - 20 mmol/L | EXTERNAL | | | | | | LAB | | + + + + + + | Glucose, | 114 (H) | 65 - 99 mg/dL | EXTERNAL | | | Fasting | | | LAB | | + + + + + + | BUN | 26 (H) | 8 - 25 mg/dL | EXTERNAL | | | | | | LAB | | + + + + + + | Creatinine | 1.0 | 0.70 - 1.30 | EXTERNAL | | | | | mg/dL | LAB | | + + + + + + | BUN/Creatin | 26 | | EXTERNAL | | | ine Ratio | | | LAB | | + + + + + + | Calcium | 7.8 (L) | 8.5 - 10.5 | EXTERNAL | | | | | mg/dL | LAB | | + + + + + + | Estimated | >60Comment: GFR <60: | mL/min/1.73m2 | EXTERNAL | | | GFR | CHRONIC KIDNEY DISEASE, | | LAB | | | | IF FOUND OVER A 3 MONTH | | | | | | PERIOD.GFR <15: KIDNEY | | | | | | FAILURE.FOR | | | | | | AMERICANS, MULTIPLY THE | | | | | | CALCULATED GFR BY | | | | | | 1.210.This eGFR is | | | | | | calculated using the | | | | | | MDRD IDMS traceable | | | | | | equation.Testing | | | | | | performed at [facility], [address] | | | | | | [address] [facility], | | | | | | [place] [address] | | | | + + + + + + + + | Specimen | + + | Blood specimen | | (specimen) | + + + +---------+ + + | Performing | Address | City/State/Zipcode | Phone Number | | Organization | | | | + +---------+ + + | EXTERNAL LAB | | | | + +---------+ + + POC Glucose (05/18/2018 9:07 PM PDT) + + + + + + | Component | Value | Ref Range | Performed | Pathologist | | | | | At | Signature | + + + + + + | Glucose, | 130 (H)Comment: Testing | 65 - 99 mg/dL | EXTERNAL | | | Fingerstick | performed at [facility];[address] | | LAB | | | | [address];[place] | | | | | | [address] | | | | + + + + + + + + | Specimen | + + | | + + + +---------+ + + | Performing | Address | City/State/Zipcode | Phone Number | | Organization | | | | + +---------+ + + | EXTERNAL LAB | | | | + +---------+ + + POC Glucose (05/18/2018 5:57 PM PDT) + + + + + + | Component | Value | Ref Range | Performed | Pathologist | | | | | At | Signature | + + + + + + | Glucose, | 120 (H)Comment: Testing | 65 - 99 mg/dL | EXTERNAL | | | Fingerstick | performed at [facility];[address] | | LAB | | | | [address];[place], [place] | | | | | | [address] | | | | + + + + + + + + | Specimen | + + | | + + + +---------+ + + | Performing | Address | City/State/Zipcode | Phone Number | | Organization | | | | + +---------+ + + | EXTERNAL LAB | | | | + +---------+ + + POC Glucose (05/18/2018 2:19 PM PDT) + + + + + + | Component | Value | Ref Range | Performed | Pathologist | | | | | At | Signature | + + + + + + | Glucose, | 123 (H)Comment: Testing | 65 - 99 mg/dL | EXTERNAL | | | Fingerstick | performed at [facility];[address] | | LAB | | | | [address];[place], [place] | | | | | | [address] | | | | + + + + + + + + | Specimen | + + | | + + + +---------+ + + | Performing | Address | City/State/Zipcode | Phone Number | | Organization | | | | + +---------+ + + | EXTERNAL LAB | | | | + +---------+ + + Gentamicin, Trough (05/18/2018 1:42 PM PDT) + + + + + + | Component | Value | Ref Range | Performed | Pathologist | | | | | At | Signature | + + + + + + | GENTAMICIN | 3.2 ()Comment: CALLED | ug/mL | EXTERNAL | | | TROUGH | RESULTSREAD BACK RESULTS | | LAB | | | | VERIFIEDTAMMY B/ICU AT | | | | | | 1422 BY MAHTesting | | | | | | performed at [facility];[address] | | | | | | [address] [facility];[place], [place] | | | | | | [address] | | | | + + + + + + + + | Specimen | + + | Blood specimen | | (specimen) | + + + +---------+ + + | Performing | Address | City/State/Zipcode | Phone Number | | Organization | | | | + +---------+ + + | EXTERNAL LAB | | | | + +---------+ + + POC Glucose (05/18/2018 11:24 AM PDT) + + + + + + | Component | Value | Ref Range | Performed | Pathologist | | | | | At | Signature | + + + + + + | Glucose, | 155 (H)Comment: Testing | 65 - 99 mg/dL | EXTERNAL | | | Fingerstick | performed at [facility];[address] | | LAB | | | | [address];[place], [place] | | | | | | [address] | | | | + + + + + + + + | Specimen | + + | | + + + +---------+ + + | Performing | Address | City/State/Zipcode | Phone Number | | Organization | | | | + +---------+ + + | EXTERNAL LAB | | | | + +---------+ + + POC Glucose (05/18/2018 10:15 AM PDT) + + + + + + | Component | Value | Ref Range | Performed | Pathologist | | | | | At | Signature | + + + + + + | Glucose, | 162 (H)Comment: Testing | 65 - 99 mg/dL | EXTERNAL | | | Fingerstick | performed at [facility];[address] | | LAB | | | | [address];[place] | | | | | | [address] | | | | + + + + + + + + | Specimen | + + | | + + + +---------+ + + | Performing | Address | City/State/Zipcode | Phone Number | | Organization | | | | + +---------+ + + | EXTERNAL LAB | | | | + +---------+ + + POC Glucose (05/18/2018 9:11 AM PDT) + + + + + + | Component | Value | Ref Range | Performed | Pathologist | | | | | At | Signature | + + + + + + | Glucose, | 163 (H)Comment: Testing | 65 - 99 mg/dL | EXTERNAL | | | Fingerstick | performed at [facility];[address] | | LAB | | | | [address];[place] | | | | | | [address] | | | | + + + + + + + + | Specimen | + + | | + + + +---------+ + + | Performing | Address | City/State/Zipcode | Phone Number | | Organization | | | | + +---------+ + + | EXTERNAL LAB | | | | + +---------+ + + POC Glucose (05/18/2018 8:34 AM PDT) + + + + + + | Component | Value | Ref Range | Performed | Pathologist | | | | | At | Signature | + + + + + + | Glucose, | 181 (H)Comment: Testing | 65 - 99 mg/dL | EXTERNAL | | | Fingerstick | performed at [facility];[address] | | LAB | | | | [address];[place], [place] | | | | | | [address] | | | | + + + + + + + + | Specimen | + + | | + + + +---------+ + + | Performing | Address | City/State/Zipcode | Phone Number | | Organization | | | | + +---------+ + + | EXTERNAL LAB | | | | + +---------+ + + POC Glucose (05/18/2018 6:26 AM PDT) + + + + + + | Component | Value | Ref Range | Performed | Pathologist | | | | | At | Signature | + + + + + + | Glucose, | 122 (H)Comment: Testing | 65 - 99 mg/dL | EXTERNAL | | | Fingerstick | performed at [facility];[address] | | LAB | | | | [address];[place] | | | | | | [address] | | | | + + + + + + + + | Specimen | + + | | + + + +---------+ + + | Performing | Address | City/State/Zipcode | Phone Number | | Organization | | | | + +---------+ + + | EXTERNAL LAB | | | | + +---------+ + + CBC no Differential (05/18/2018 5:05 AM PDT) + + + + + + | Component | Value | Ref Range | Performed | Pathologist | | | | | At | Signature | + + + + + + | WBC | 14.87 (H) | 3.80 - 11.00 | EXTERNAL | | | | | K/uL | LAB | | + + + + + + | Non- | 3.56 (L) | 4.20 - 5.70 | EXTERNAL | | | Red Blood | | M/uL | LAB | | | Cells | | | | | | Counted | | | | | + + + + + + | Hemoglobin | 8.1 (L) | 13.2 - 17.0 | EXTERNAL | | | | | g/dL | LAB | | + + + + + + | Hematocrit, | 25.1 (L) | 39.0 - 50.0 % | EXTERNAL | | | POC | | | LAB | | + + + + + + | MCV | 70.3 (L) | 80.0 - 100.0 fl | EXTERNAL | | | | | | LAB | | + + + + + + | MCH | 22.6 (L) | 27.0 - 34.0 pg | EXTERNAL | | | | | | LAB | | + + + + + + | MCHC | 32.2 | 32.0 - 35.5 | EXTERNAL | | | | | g/dL | LAB | | + + + + + + | RDW-CV | 53.8 (H) | 37 - 53 fl | EXTERNAL | | | | | | LAB | | + + + + + + | Platelet | 134 (L) | 150 - 400 K/uL | EXTERNAL | | | Count | | | LAB | | | Plasma | | | | | + + + + + + | MPV | 9.1Comment: Testing | fl | EXTERNAL | | | | performed at [facility], [address] | LAB | | | | [address], | | | | | | [place] [id number] | | | | + + + + + + + + | Specimen | + + | Blood specimen | | (specimen) | + + + +---------+ + + | Performing | Address | City/State/Zipcode | Phone Number | | Organization | | | | + +---------+ + + | EXTERNAL LAB | | | | + +---------+ + + Magnesium (05/18/2018 5:05 AM PDT) + + + + + + | Component | Value | Ref Range | Performed | Pathologist | | | | | At | Signature | + + + + + + | Magnesium | 2.4Comment: Testing | 1.7 - 2.4 mg/dL | EXTERNAL | | | | performed at [facility], [address] | | LAB | | | | [address], | | | | | | [place] [address] | | | | + + + + + + + + | Specimen | + + | Blood specimen | | (specimen) | + + + +---------+ + + | Performing | Address | City/State/Zipcode | Phone Number | | Organization | | | | + +---------+ + + | EXTERNAL LAB | | | | + +---------+ + + Basic Metabolic Panel (05/18/2018 5:05 AM PDT) + + + + + + | Component | Value | Ref Range | Performed | Pathologist | | | | | At | Signature | + + + + + + | Na | 131 (L) | 135 - 145 | EXTERNAL | | | | | mmol/L | LAB | | + + + + + + | K | 4.7 | 3.5 - 4.9 | EXTERNAL | | | | | mmol/L | LAB | | + + + + + + | Cl | 99 | 99 - 109 mmol/L | EXTERNAL | | | | | | LAB | | + + + + + + | CO2 | 23 | 23 - 32 mmol/L | EXTERNAL | | | | | | LAB | | + + + + + + | Anion Gap | 14 | 5 - 20 mmol/L | EXTERNAL | | | | | | LAB | | + + + + + + | Glucose, | 116 (H) | 65 - 99 mg/dL | EXTERNAL | | | Fasting | | | LAB | | + + + + + + | BUN | 20 | 8 - 25 mg/dL | EXTERNAL | | | | | | LAB | | + + + + + + | Creatinine | 0.9 | 0.70 - 1.30 | EXTERNAL | | | | | mg/dL | LAB | | + + + + + + | BUN/Creatin | 22 | | EXTERNAL | | | ine Ratio | | | LAB | | + + + + + + | Calcium | 8.0 (L) | 8.5 - 10.5 | EXTERNAL | | | | | mg/dL | LAB | | + + + + + + | Estimated | >60Comment: GFR <60: | mL/min/1.73m2 | EXTERNAL | | | GFR | CHRONIC KIDNEY DISEASE, | | LAB | | | | IF FOUND OVER A 3 MONTH | | | | | | PERIOD.GFR <15: KIDNEY | | | | | | FAILURE.FOR | | | | | | AMERICANS, MULTIPLY THE | | | | | | CALCULATED GFR BY | | | | | | 1.210.This eGFR is | | | | | | calculated using the | | | | | | MDRD IDMS traceable | | | | | | equation.Testing | | | | | | performed at [facility], [address] | | | | | | [facility] [address], | | | | | | [place] [address] | | | | + + + + + + + + | Specimen | + + | Blood specimen | | (specimen) | + + + +---------+ + + | Performing | Address | City/State/Zipcode | Phone Number | | Organization | | | | + +---------+ + + | EXTERNAL LAB | | | | + +---------+ + + XR Chest 1 Vw (05/18/2018 4:57 AM PDT) + + | Specimen | + + | | + + + + + | Impressions | Performed At | + + + | 1. Stable cardiomegaly and sternal wires 2. Removal of the | | | left IJ Cordis, without cardiopulmonary change Electronically | | | signed by Jeremy Garces MD on 05/18/2018 6:45 AM | | + + + + + + | Narrative | Performed At | + + + | History: 58 years old Male with postoperative. Technique: AP | | | upright portable radiographic examination of the chest, obtained at | | | 4:25 on 18 May 2018. Prior study for comparison -- 4:10. 28 | | | April 2018. Findings: Cardiomediastinum cardiomegaly. Sternal | | | wires. Sternal drain. Stable from the prior exam Support equipment | | | left IJ Cordis has been removed. Lungs are stably inflated with | | | only mild interstitial edema at most, no new infiltrate. No proven or | | | large effusion. Bones and soft tissues unchanged to technique. | | + + + + + | Procedure Note | + + | Hansel, Rad Conversion - 05/03/2019 11:06 AM PDT History: 58 years old Male with | | postoperative. Technique: AP upright portable radiographic examination of the chest, | | obtained at 4:25 on 18 May 2018. Prior study for comparison -- 4:10. 17 May | | 2018. Findings: Cardiomediastinum cardiomegaly. Sternal wires. Sternal drain. Stable | | from the prior exam Support equipment left IJ Cordis has been removed. Lungs are stably | | inflated with only mild interstitial edema at most, no new infiltrate. No proven or | | large effusion. Bones and soft tissues unchanged to technique. IMPRESSION: 1. Stable | | cardiomegaly and sternal wires 2. Removal of the left IJ Cordis, without cardiopulmonary | | change | | | |Lungs are stably inflated with only mild interstitial edema at most, no new infiltrate. No proven or large effusion. | | | |Bones and soft tissues unchanged to technique. | | | |IMPRESSION: | | | |1. Stable cardiomegaly and sternal wires | | | |2. Removal of the left IJ Cordis, without cardiopulmonary change | | | | | + + POC Glucose (05/18/2018 4:16 AM PDT) + + + + + + | Component | Value | Ref Range | Performed | Pathologist | | | | | At | Signature | + + + + + + | Glucose, | 129 (H)Comment: Testing | 65 - 99 mg/dL | EXTERNAL | | | Fingerstick | performed at [facility];[address] | | LAB | | | | [address];[place], [place] | | | | | | [address] | | | | + + + + + + + + | Specimen | + + | | + + + +---------+ + + | Performing | Address | City/State/Zipcode | Phone Number | | Organization | | | | + +---------+ + + | EXTERNAL LAB | | | | + +---------+ + + POC Glucose (05/18/2018 3:10 AM PDT) + + + + + + | Component | Value | Ref Range | Performed | Pathologist | | | | | At | Signature | + + + + + + | Glucose, | 127 (H)Comment: Testing | 65 - 99 mg/dL | EXTERNAL | | | Fingerstick | performed at [facility];[address] | | LAB | | | | [address];[place] | | | | | | [address] | | | | + + + + + + + + | Specimen | + + | | + + + +---------+ + + | Performing | Address | City/State/Zipcode | Phone Number | | Organization | | | | + +---------+ + + | EXTERNAL LAB | | | | + +---------+ + + POC Glucose (05/18/2018 2:05 AM PDT) + + + + + + | Component | Value | Ref Range | Performed | Pathologist | | | | | At | Signature | + + + + + + | Glucose, | 119 (H)Comment: Testing | 65 - 99 mg/dL | EXTERNAL | | | Fingerstick | performed at [facility];[address] | | LAB | | | | [address];[place] | | | | | | [address] | | | | + + + + + + + + | Specimen | + + | | + + + +---------+ + + | Performing | Address | City/State/Zipcode | Phone Number | | Organization | | | | + +---------+ + + | EXTERNAL LAB | | | | + +---------+ + + POC Glucose (05/18/2018 1:33 AM PDT) + + + + + + | Component | Value | Ref Range | Performed | Pathologist | | | | | At | Signature | + + + + + + | Glucose, | 92Comment: Testing | 65 - 99 mg/dL | EXTERNAL | | | Fingerstick | performed at [facility];[address] | | LAB | | | | [address];[place] | | | | | | [address] | | | | + + + + + + + + | Specimen | + + | | + + + +---------+ + + | Performing | Address | City/State/Zipcode | Phone Number | | Organization | | | | + +---------+ + + | EXTERNAL LAB | | | | + +---------+ + + POC Glucose (05/18/2018 12:27 AM PDT) + + + + + + | Component | Value | Ref Range | Performed | Pathologist | | | | | At | Signature | + + + + + + | Glucose, | 190 (H)Comment: Testing | 65 - 99 mg/dL | EXTERNAL | | | Fingerstick | performed at [facility];[address] | | LAB | | | | [address];[place], [place] | | | | | | [address] | | | | + + + + + + + + | Specimen | + + | | + + + +---------+ + + | Performing | Address | City/State/Zipcode | Phone Number | | Organization | | | | + +---------+ + + | EXTERNAL LAB | | | | + +---------+ + + Potassium (05/18/2018 12:01 AM PDT) + + + + + + | Component | Value | Ref Range | Performed | Pathologist | | | | | At | Signature | + + + + + + | K | 4.4Comment: Testing | 3.5 - 4.9 | EXTERNAL | | | | performed at [facility];[address] | mmol/L | LAB | | | | [address];[place], [place] | | | | | | [address] | | | | + + + + + + + + | Specimen | + + | Blood specimen | | (specimen) | + + + +---------+ + + | Performing | Address | City/State/Zipcode | Phone Number | | Organization | | | | + +---------+ + + | EXTERNAL LAB | | | | + +---------+ + + Magnesium (05/18/2018 12:01 AM PDT) + + + + + + | Component | Value | Ref Range | Performed | Pathologist | | | | | At | Signature | + + + + + + | Magnesium | 2.4Comment: Testing | 1.7 - 2.4 mg/dL | EXTERNAL | | | | performed at [facility] | | LAB | | | | [address];[place], [place] | | | | | | [address] | | | | + + + + + + + + | Specimen | + + | Blood specimen | | (specimen) | + + + +---------+ + + | Performing | Address | City/State/Zipcode | Phone Number | | Organization | | | | + +---------+ + + | EXTERNAL LAB | | | | + +---------+ + + POC Glucose (05/17/2018 11:21 PM PDT) + + + + + + | Component | Value | Ref Range | Performed | Pathologist | | | | | At | Signature | + + + + + + | Glucose, | 236 (H)Comment: Testing | 65 - 99 mg/dL | EXTERNAL | | | Fingerstick | performed at [facility];[address] | | LAB | | | | [address];[place] | | | | | | [address] | | | | + + + + + + + + | Specimen | + + | | + + + +---------+ + + | Performing | Address | City/State/Zipcode | Phone Number | | Organization | | | | + +---------+ + + | EXTERNAL LAB | | | | + +---------+ + + POC Glucose (05/17/2018 10:13 PM PDT) + + + + + + | Component | Value | Ref Range | Performed | Pathologist | | | | | At | Signature | + + + + + + | Glucose, | 177 (H)Comment: Testing | 65 - 99 mg/dL | EXTERNAL | | | Fingerstick | performed at [facility];[address] | | LAB | | | | [address];[place], [place] | | | | | | [address] | | | | + + + + + + + + | Specimen | + + | | + + + +---------+ + + | Performing | Address | City/State/Zipcode | Phone Number | | Organization | | | | + +---------+ + + | EXTERNAL LAB | | | | + +---------+ + + POC Glucose (05/17/2018 9:10 PM PDT) + + + + + + | Component | Value | Ref Range | Performed | Pathologist | | | | | At | Signature | + + + + + + | Glucose, | 165 (H)Comment: Testing | 65 - 99 mg/dL | EXTERNAL | | | Fingerstick | performed at [facility];[address] | | LAB | | | | [address];[place], [place] | | | | | | [address] | | | | + + + + + + + + | Specimen | + + | | + + + +---------+ + + | Performing | Address | City/State/Zipcode | Phone Number | | Organization | | | | + +---------+ + + | EXTERNAL LAB | | | | + +---------+ + + POC Glucose (05/17/2018 7:57 PM PDT) + + + + + + | Component | Value | Ref Range | Performed | Pathologist | | | | | At | Signature | + + + + + + | Glucose, | 153 (H)Comment: Testing | 65 - 99 mg/dL | EXTERNAL | | | Fingerstick | performed at [facility] | | LAB | | | | [address];[place] | | | | | | [address] | | | | + + + + + + + + | Specimen | + + | | + + + +---------+ + + | Performing | Address | City/State/Zipcode | Phone Number | | Organization | | | | + +---------+ + + | EXTERNAL LAB | | | | + +---------+ + + POC Glucose (05/17/2018 6:49 PM PDT) + + + + + + | Component | Value | Ref Range | Performed | Pathologist | | | | | At | Signature | + + + + + + | Glucose, | 175 (H)Comment: Testing | 65 - 99 mg/dL | EXTERNAL | | | Fingerstick | performed at [facility];[address] | | LAB | | | | [address];[place] | | | | | | [address] | | | | + + + + + + + + | Specimen | + + | | + + + +---------+ + + | Performing | Address | City/State/Zipcode | Phone Number | | Organization | | | | + +---------+ + + | EXTERNAL LAB | | | | + +---------+ + + POC Glucose (05/17/2018 5:45 PM PDT) + + + + + + | Component | Value | Ref Range | Performed | Pathologist | | | | | At | Signature | + + + + + + | Glucose, | 168 (H)Comment: Testing | 65 - 99 mg/dL | EXTERNAL | | | Fingerstick | performed at [facility];[address] | | LAB | | | | [address];[place] | | | | | | [address] | | | | + + + + + + + + | Specimen | + + | | + + + +---------+ + + | Performing | Address | City/State/Zipcode | Phone Number | | Organization | | | | + +---------+ + + | EXTERNAL LAB | | | | + +---------+ + + POC Glucose (05/17/2018 4:37 PM PDT) + + + + + + | Component | Value | Ref Range | Performed | Pathologist | | | | | At | Signature | + + + + + + | Glucose, | 175 (H)Comment: Testing | 65 - 99 mg/dL | EXTERNAL | | | Fingerstick | performed at [facility];[address] | | LAB | | | | [address];[place], [place] | | | | | | [address] | | | | + + + + + + + + | Specimen | + + | | + + + +---------+ + + | Performing | Address | City/State/Zipcode | Phone Number | | Organization | | | | + +---------+ + + | EXTERNAL LAB | | | | + +---------+ + + POC Glucose (05/17/2018 3:20 PM PDT) + + + + + + | Component | Value | Ref Range | Performed | Pathologist | | | | | At | Signature | + + + + + + | Glucose, | 159 (H)Comment: Testing | 65 - 99 mg/dL | EXTERNAL | | | Fingerstick | performed at [facility];[address] | | LAB | | | | [address];[place], [place] | | | | | | [address] | | | | + + + + + + + + | Specimen | + + | | + + + +---------+ + + | Performing | Address | City/State/Zipcode | Phone Number | | Organization | | | | + +---------+ + + | EXTERNAL LAB | | | | + +---------+ + + POC Glucose (05/17/2018 1:55 PM PDT) + + + + + + | Component | Value | Ref Range | Performed | Pathologist | | | | | At | Signature | + + + + + + | Glucose, | 161 (H)Comment: Testing | 65 - 99 mg/dL | EXTERNAL | | | Fingerstick | performed at [facility];[address] | | LAB | | | | [address];[place], [place] | | | | | | [address] | | | | + + + + + + + + | Specimen | + + | | + + + +---------+ + + | Performing | Address | City/State/Zipcode | Phone Number | | Organization | | | | + +---------+ + + | EXTERNAL LAB | | | | + +---------+ + + POC Glucose (05/17/2018 12:45 PM PDT) + + + + + + | Component | Value | Ref Range | Performed | Pathologist | | | | | At | Signature | + + + + + + | Glucose, | 171 (H)Comment: Testing | 65 - 99 mg/dL | EXTERNAL | | | Fingerstick | performed at [facility];[address] | | LAB | | | | [address];[place] | | | | | | [address] | | | | + + + + + + + + | Specimen | + + | | + + + +---------+ + + | Performing | Address | City/State/Zipcode | Phone Number | | Organization | | | | + +---------+ + + | EXTERNAL LAB | | | | + +---------+ + + Potassium (05/17/2018 12:45 PM PDT) + + + + + + | Component | Value | Ref Range | Performed | Pathologist | | | | | At | Signature | + + + + + + | K | 4.6Comment: Testing | 3.5 - 4.9 | EXTERNAL | | | | performed at [facility];[address] | mmol/L | LAB | | | | [address];[place], [place] | | | | | | [address] | | | | + + + + + + + + | Specimen | + + | Blood specimen | | (specimen) | + + + +---------+ + + | Performing | Address | City/State/Zipcode | Phone Number | | Organization | | | | + +---------+ + + | EXTERNAL LAB | | | | + +---------+ + + POC Glucose (05/17/2018 11:56 AM PDT) + + + + + + | Component | Value | Ref Range | Performed | Pathologist | | | | | At | Signature | + + + + + + | Glucose, | 156 (H)Comment: Testing | 65 - 99 mg/dL | EXTERNAL | | | Fingerstick | performed at [facility];[address] | | LAB | | | | [address];[place] | | | | | | [address] | | | | + + + + + + + + | Specimen | + + | | + + + +---------+ + + | Performing | Address | City/State/Zipcode | Phone Number | | Organization | | | | + +---------+ + + | EXTERNAL LAB | | | | + +---------+ + + POC Glucose (05/17/2018 10:50 AM PDT) + + + + + + | Component | Value | Ref Range | Performed | Pathologist | | | | | At | Signature | + + + + + + | Glucose, | 177 (H)Comment: Testing | 65 - 99 mg/dL | EXTERNAL | | | Fingerstick | performed at [facility];[address] | | LAB | | | | [address];[place] | | | | | | [address] | | | | + + + + + + + + | Specimen | + + | | + + + +---------+ + + | Performing | Address | City/State/Zipcode | Phone Number | | Organization | | | | + +---------+ + + | EXTERNAL LAB | | | | + +---------+ + + Potassium (05/17/2018 8:58 AM PDT) + + + + + + | Component | Value | Ref Range | Performed | Pathologist | | | | | At | Signature | + + + + + + | K | 4.4Comment: Testing | 3.5 - 4.9 | EXTERNAL | | | | performed at [facility];[address] | mmol/L | LAB | | | | [address];[place] | | | | | | [address] | | | | + + + + + + + + | Specimen | + + | Blood specimen | | (specimen) | + + + +---------+ + + | Performing | Address | City/State/Zipcode | Phone Number | | Organization | | | | + +---------+ + + | EXTERNAL LAB | | | | + +---------+ + + POC Glucose (05/17/2018 8:53 AM PDT) + + + + + + | Component | Value | Ref Range | Performed | Pathologist | | | | | At | Signature | + + + + + + | Glucose, | 331 (H)Comment: Testing | 65 - 99 mg/dL | EXTERNAL | | | Fingerstick | performed at [facility];[address] | | LAB | | | | [address];[place], [place] | | | | | | [address] | | | | + + + + + + + + | Specimen | + + | | + + + +---------+ + + | Performing | Address | City/State/Zipcode | Phone Number | | Organization | | | | + +---------+ + + | EXTERNAL LAB | | | | + +---------+ + + POC Glucose (05/17/2018 7:35 AM PDT) + + + + + + | Component | Value | Ref Range | Performed | Pathologist | | | | | At | Signature | + + + + + + | Glucose, | 179 (H)Comment: Testing | 65 - 99 mg/dL | EXTERNAL | | | Fingerstick | performed at [facility];[address] | | LAB | | | | [address];[place] | | | | | | [address] | | | | + + + + + + + + | Specimen | + + | | + + + +---------+ + + | Performing | Address | City/State/Zipcode | Phone Number | | Organization | | | | + +---------+ + + | EXTERNAL LAB | | | | + +---------+ + + XR Chest 1 Vw (05/17/2018 5:39 AM PDT) + + | Specimen | + + | | + + + + + | Impressions | Performed At | + + + | 1. Removal ET tube and NG tube, probably with an element of | | | bilateral perihilar atelectasis. 2. I also suspect an element of | | | pulmonary venous congestion. 3. Heart size remains upper normal. | | | | | + + + + + + | Narrative | Performed At | + + + | HISTORY: Evaluate tubes and lines. COMPARISON: 05/16/18. | | | TECHNIQUE: AP portable film of the chest at 0503 hours FINDINGS: | | | Median sternotomy. Heart size upper normal. Pulmonary venous | | | congestion is suspected. Bilateral perihilar atelectasis. Left IJ | | | sheath. ET tube and NG tube have been removed. Lungs are well | | | expanded. | | + + + + + | Procedure Note | + + | Hansel, Rad Conversion - 05/03/2019 11:06 AM PDT HISTORY:Evaluate tubes and lines. | | COMPARISON:05/16/18. TECHNIQUE:AP portable film of the chest at 0503 hours | | FINDINGS:Median sternotomy. Heart size upper normal. Pulmonary venous congestion is | | suspected. Bilateral perihilar atelectasis. Left IJ sheath. ET tube and NG tube have | | been removed. Lungs are well expanded. IMPRESSION: 1. Removal ET tube and NG tube, | | probably with an element of bilateral perihilar atelectasis.2. I also suspect an | | element of pulmonary venous congestion.3. Heart size remains upper normal. | | | | | |FINDINGS: | |Median sternotomy. Heart size upper normal. Pulmonary venous congestion is suspected. Bilat eral perihilar atelectasis. Left IJ sheath. ET tube and NG tube have been removed. Lungs are well expanded. | | | |IMPRESSION: | |1. Removal ET tube and NG tube, probably with an element of bilateral perihilar atelectasi s. | |2. I also suspect an element of pulmonary venous congestion. | |3. Heart size remains upper normal. | | | | | + + POC Glucose (05/17/2018 5:09 AM PDT) + + + + + + | Component | Value | Ref Range | Performed | Pathologist | | | | | At | Signature | + + + + + + | Glucose, | 130 (H)Comment: Testing | 65 - 99 mg/dL | EXTERNAL | | | Fingerstick | performed at [facility];[address] | | LAB | | | | [address];[place] | | | | | | [address] | | | | + + + + + + + + | Specimen | + + | | + + + +---------+ + + | Performing | Address | City/State/Zipcode | Phone Number | | Organization | | | | + +---------+ + + | EXTERNAL LAB | | | | + +---------+ + + External Lab: CBC (05/17/2018 3:05 AM PDT) + + + + + + | Component | Value | Ref Range | Performed | Pathologist | | | | | At | Signature | + + + + + + | WBC | 12.20 (H) | 3.80 - 11.00 | EXTERNAL | | | | | K/uL | LAB | | + + + + + + | Non- | 3.86 (L) | 4.20 - 5.70 | EXTERNAL | | | Red Blood | | M/uL | LAB | | | Cells | | | | | | Counted | | | | | + + + + + + | Hemoglobin | 8.6 (L) | 13.2 - 17.0 | EXTERNAL | | | | | g/dL | LAB | | + + + + + + | Hematocrit, | 26.9 (L) | 39.0 - 50.0 % | EXTERNAL | | | POC | | | LAB | | + + + + + + | MCV | 69.7 (L) | 80.0 - 100.0 fl | EXTERNAL | | | | | | LAB | | + + + + + + | MCH | 22.3 (L) | 27.0 - 34.0 pg | EXTERNAL | | | | | | LAB | | + + + + + + | MCHC | 32.0 | 32.0 - 35.5 | EXTERNAL | | | | | g/dL | LAB | | + + + + + + | RDW-CV | 53.4 (H) | 37 - 53 fl | EXTERNAL | | | | | | LAB | | + + + + + + | Platelet | 162 | 150 - 400 K/uL | EXTERNAL | | | Count | | | LAB | | | Plasma | | | | | + + + + + + | MPV | 8.2 | fl | EXTERNAL | | | | | | LAB | | + + + + + + | Differentia | AUTOMATED | | EXTERNAL | | | l Type | | | LAB | | + + + + + + | % Segmented | 80.93 | % | EXTERNAL | | | | | | LAB | | | Neutrophils | | | | | + + + + + + | % | 10.31 | % | EXTERNAL | | | Lymphocytes | | | LAB | | + + + + + + | % Monocytes | 7.84 | % | EXTERNAL | | | | | | LAB | | + + + + + + | % | 0.42 | % | EXTERNAL | | | Eosinophils | | | LAB | | + + + + + + | % Basophils | 0.50 | % | EXTERNAL | | | | | | LAB | | + + + + + + | Absolute | 9.87 (H) | 1.90 - 7.40 | EXTERNAL | | | Segmented | | K/uL | LAB | | | Neutrophils | | | | | + + + + + + | Absolute | 1.26 | 1.00 - 3.90 | EXTERNAL | | | Lymphocytes | | K/uL | LAB | | + + + + + + | Absolute | 0.96 (H) | 0.00 - 0.80 | EXTERNAL | | | Monocytes | | K/uL | LAB | | + + + + + + | Absolute | 0.05 | 0.00 - 0.50 | EXTERNAL | | | Eosinophils | | K/uL | LAB | | + + + + + + | Absolute | 0.06 | 0.00 - 0.10 | EXTERNAL | | | Basophils | | K/uL | LAB | | + + + + + + | RBC | 2+ | | EXTERNAL | | | Morphology | Comment: | | LAB | | | | ANISO | | | | | | 2+ | | | | | | HYPO | | | | | | 2+ | | | | | | MICRO | | | | | | NORMAL PLT MORPH | | | | | | | | | | + + + + + + | Platelet | ADEQUATEComment: Testing | | EXTERNAL | | | Estimate | performed at [facility], [address] | | LAB | | | | [address], | | | | | | [place] [address] | | | | + + + + + + + + | Specimen | + + | Blood specimen | | (specimen) | + + + +---------+ + + | Performing | Address | City/State/Zipcode | Phone Number | | Organization | | | | + +---------+ + + | EXTERNAL LAB | | | | + +---------+ + + POC Glucose (05/17/2018 3:05 AM PDT) + + + + + + | Component | Value | Ref Range | Performed | Pathologist | | | | | At | Signature | + + + + + + | Glucose, | 139 (H)Comment: Testing | 65 - 99 mg/dL | EXTERNAL | | | Fingerstick | performed at [facility];[address] | | LAB | | | | [address];[place], [place] | | | | | | [address] | | | | + + + + + + + + | Specimen | + + | | + + + +---------+ + + | Performing | Address | City/State/Zipcode | Phone Number | | Organization | | | | + +---------+ + + | EXTERNAL LAB | | | | + +---------+ + + Magnesium (05/17/2018 3:05 AM PDT) + + + + + + | Component | Value | Ref Range | Performed | Pathologist | | | | | At | Signature | + + + + + + | Magnesium | 2.1Comment: Testing | 1.7 - 2.4 mg/dL | EXTERNAL | | | | performed at [facility];[address] | | [address] | | | | [address];[place] | | | | | | [address] | | | | + + + + + + + + | Specimen | + + | Blood specimen | | (specimen) | + + + +---------+ + + | Performing | Address | City/State/Zipcode | Phone Number | | Organization | | | | + +---------+ + + | EXTERNAL LAB | | | | + +---------+ + + Hemoglobin A1C (05/17/2018 3:05 AM PDT) + + + + + + | Component | Value | Ref Range | Performed | Pathologist | | | | | At | Signature | + + + + + + | Hemoglobin | 5.4Comment: [facility] [place] | 4.0 - 6.0 % | EXTERNAL | | | A1c | [employer] | | LAB | | | | considers a hemoglobin | | | | | | A1c result of <7.0% to | | | | | | be the goal of diabetic | | | | | | therapy. When results | | | | | | are consistently >8.0%, | | | | | | the ADA suggests | | | | | | reevaluation of the | | | | | | treatment regimen. The | | | | | | testing method used is | | | | | | certified traceable to | | | | | | the Diabetes Control and | | | | | | Complications Trial | | | | | | reference method. | | | | + + + + + + | Glycohemogl | 108Comment: The ADA | mg/dL | EXTERNAL | | | obin | considers an eAG result | | LAB | | | (GHb),Total | of LT 154 mg/dL to be | | | | | | the goal of diabetic | | | | | | therapy. Estimated | | | | | | Average Glucose | | | | | | calculated from | | | | | | hemoglobin A1c by use of | | | | | | the ADA recommended | | | | | | formula.Testing | | | | | | performed at [facility], [address] | | | | | [address], | | | | | | [place] [address] | | | | + + + + + + + + | Specimen | + + | Blood specimen | | (specimen) | + + + +---------+ + + | Performing | Address | City/State/Zipcode | Phone Number | | Organization | | | | + +---------+ + + | EXTERNAL LAB | | | | + +---------+ + + Basic Metabolic Panel (05/17/2018 3:05 AM PDT) + + + + + + | Component | Value | Ref Range | Performed | Pathologist | | | | | At | Signature | + + + + + + | Na | 140 | 135 - 145 | EXTERNAL | | | | | mmol/L | LAB | | + + + + + + | K | 4.6 | 3.5 - 4.9 | EXTERNAL | | | | | mmol/L | LAB | | + + + + + + | Cl | 109 | 99 - 109 mmol/L | EXTERNAL | | | | | | LAB | | + + + + + + | CO2 | 23 | 23 - 32 mmol/L | EXTERNAL | | | | | | LAB | | + + + + + + | Anion Gap | 13 | 5 - 20 mmol/L | EXTERNAL | | | | | | LAB | | + + + + + + | Glucose, | 121 (H) | 65 - 99 mg/dL | EXTERNAL | | | Fasting | | | LAB | | + + + + + + | BUN | 13 | 8 - 25 mg/dL | EXTERNAL | | | | | | LAB | | + + + + + + | Creatinine | 0.60 (L) | 0.70 - 1.30 | EXTERNAL | | | | | mg/dL | LAB | | + + + + + + | BUN/Creatin | 21 | | EXTERNAL | | | ine Ratio | | | LAB | | + + + + + + | Calcium | 7.3 (L) | 8.5 - 10.5 | EXTERNAL | | | | | mg/dL | LAB | | + + + + + + | Estimated | >60Comment: GFR <60: | mL/min/1.73m2 | EXTERNAL | | | GFR | CHRONIC KIDNEY DISEASE, | | LAB | | | | IF FOUND OVER A 3 MONTH | | | | | | PERIOD.GFR <15: KIDNEY | | | | | | FAILURE.FOR | | | | | | AMERICANS, MULTIPLY THE | | | | | | CALCULATED GFR BY | | | | | | 1.210.This eGFR is | | | | | | calculated using the | | | | | | MDRD IDMS traceable | | | | | | equation.Testing | | | | | | performed at [facility];[address] | | | | | | [facility];[place], [place] | | | | | | [address] | | | | + + + + + + + + | Specimen | + + | Blood specimen | | (specimen) | + + + +---------+ + + | Performing | Address | City/State/Zipcode | Phone Number | | Organization | | | | + +---------+ + + | EXTERNAL LAB | | | | + +---------+ + + POC Glucose (05/17/2018 12:57 AM PDT) + + + + + + | Component | Value | Ref Range | Performed | Pathologist | | | | | At | Signature | + + + + + + | Glucose, | 133 (H)Comment: Testing | 65 - 99 mg/dL | EXTERNAL | | | Fingerstick | performed at [facility];[address] | | LAB | | | | [address];[place] | | | | | | [address] | | | | + + + + + + + + | Specimen | + + | | + + + +---------+ + + | Performing | Address | City/State/Zipcode | Phone Number | | Organization | | | | + +---------+ + + | EXTERNAL LAB | | | | + +---------+ + + POC Glucose (05/16/2018 11:50 PM PDT) + + + + + + | Component | Value | Ref Range | Performed | Pathologist | | | | | At | Signature | + + + + + + | Glucose, | 132 (H)Comment: Testing | 65 - 99 mg/dL | EXTERNAL | | | Fingerstick | performed at [facility];[address] | | LAB | | | | [address];[place], [place] | | | | | | [address] | | | | + + + + + + + + | Specimen | + + | | + + + +---------+ + + | Performing | Address | City/State/Zipcode | Phone Number | | Organization | | | | + +---------+ + + | EXTERNAL LAB | | | | + +---------+ + + Potassium (05/16/2018 11:49 PM PDT) + + + + + + | Component | Value | Ref Range | Performed | Pathologist | | | | | At | Signature | + + + + + + | K | 4.6Comment: Testing | 3.5 - 4.9 | EXTERNAL | | | | performed at [facility];[address] | mmol/L | LAB | | | | [address];[place] | | | | | | [address] | | | | + + + + + + + + | Specimen | + + | Blood specimen | | (specimen) | + + + +---------+ + + | Performing | Address | City/State/Zipcode | Phone Number | | Organization | | | | + +---------+ + + | EXTERNAL LAB | | | | + +---------+ + + POC Glucose (05/16/2018 10:45 PM PDT) + + + + + + | Component | Value | Ref Range | Performed | Pathologist | | | | | At | Signature | + + + + + + | Glucose, | 139 (H)Comment: Testing | 65 - 99 mg/dL | EXTERNAL | | | Fingerstick | performed at [facility];[address] | | LAB | | | | [address];[place], [place] | | | | | | [address] | | | | + + + + + + + + | Specimen | + + | | + + + +---------+ + + | Performing | Address | City/State/Zipcode | Phone Number | | Organization | | | | + +---------+ + + | EXTERNAL LAB | | | | + +---------+ + + POC Glucose (05/16/2018 9:40 PM PDT) + + + + + + | Component | Value | Ref Range | Performed | Pathologist | | | | | At | Signature | + + + + + + | Glucose, | 150 (H)Comment: Testing | 65 - 99 mg/dL | EXTERNAL | | | Fingerstick | performed at [facility];[address] | | LAB | | | | [address];[place] | | | | | | [address] | | | | + + + + + + + + | Specimen | + + | | + + + +---------+ + + | Performing | Address | City/State/Zipcode | Phone Number | | Organization | | | | + +---------+ + + | EXTERNAL LAB | | | | + +---------+ + + POC Glucose (05/16/2018 8:36 PM PDT) + + + + + + | Component | Value | Ref Range | Performed | Pathologist | | | | | At | Signature | + + + + + + | Glucose, | 147 (H)Comment: Testing | 65 - 99 mg/dL | EXTERNAL | | | Fingerstick | performed at [facility];[address] | | LAB | | | | [address];[place] | | | | | | [address] | | | | + + + + + + + + | Specimen | + + | | + + + +---------+ + + | Performing | Address | City/State/Zipcode | Phone Number | | Organization | | | | + +---------+ + + | EXTERNAL LAB | | | | + +---------+ + + Potassium (05/16/2018 7:34 PM PDT) + + + + + + | Component | Value | Ref Range | Performed | Pathologist | | | | | At | Signature | + + + + + + | K | 4.2Comment: Testing | 3.5 - 4.9 | EXTERNAL | | | | performed at [facility];[address] | mmol/L | LAB | | | | [address];[place], [place] | | | | | | [address] | | | | + + + + + + + + | Specimen | + + | Blood specimen | | (specimen) | + + + +---------+ + + | Performing | Address | City/State/Zipcode | Phone Number | | Organization | | | | + +---------+ + + | EXTERNAL LAB | | | | + +---------+ + + POC Glucose (05/16/2018 7:32 PM PDT) + + + + + + | Component | Value | Ref Range | Performed | Pathologist | | | | | At | Signature | + + + + + + | Glucose, | 148 (H)Comment: Testing | 65 - 99 mg/dL | EXTERNAL | | | Fingerstick | performed at [facility];[address] | | LAB | | | | [address];[place] | | | | | | [address] | | | | + + + + + + + + | Specimen | + + | | + + + +---------+ + + | Performing | Address | City/State/Zipcode | Phone Number | | Organization | | | | + +---------+ + + | EXTERNAL LAB | | | | + +---------+ + + POC Glucose (05/16/2018 6:00 PM PDT) + + + + + + | Component | Value | Ref Range | Performed | Pathologist | | | | | At | Signature | + + + + + + | Glucose, | 155 (H)Comment: Testing | 65 - 99 mg/dL | EXTERNAL | | | Fingerstick | performed at [facility];[address] | | LAB | | | | [address];[place] | | | | | | [address] | | | | + + + + + + + + | Specimen | + + | | + + + +---------+ + + | Performing | Address | City/State/Zipcode | Phone Number | | Organization | | | | + +---------+ + + | EXTERNAL LAB | | | | + +---------+ + + POC Glucose (05/16/2018 5:09 PM PDT) + + + + + + | Component | Value | Ref Range | Performed | Pathologist | | | | | At | Signature | + + + + + + | Glucose, | 147 (H)Comment: Testing | 65 - 99 mg/dL | EXTERNAL | | | Fingerstick | performed at [facility];[address] | | LAB | | | | [address];[place], [place] | | | | | | [address] | | | | + + + + + + + + | Specimen | + + | | + + + +---------+ + + | Performing | Address | City/State/Zipcode | Phone Number | | Organization | | | | + +---------+ + + | EXTERNAL LAB | | | | + +---------+ + + Potassium (05/16/2018 4:10 PM PDT) + + + + + + | Component | Value | Ref Range | Performed | Pathologist | | | | | At | Signature | + + + + + + | K | 4.6Comment: Testing | 3.5 - 4.9 | EXTERNAL | | | | performed at [facility];[address] | mmol/L | LAB | | | | [address];[place], [place] | | | | | | [address] | | | | + + + + + + + + | Specimen | + + | Blood specimen | | (specimen) | + + + +---------+ + + | Performing | Address | City/State/Zipcode | Phone Number | | Organization | | | | + +---------+ + + | EXTERNAL LAB | | | | + +---------+ + + POC Glucose (05/16/2018 4:09 PM PDT) + + + + + + | Component | Value | Ref Range | Performed | Pathologist | | | | | At | Signature | + + + + + + | Glucose, | 153 (H)Comment: Testing | 65 - 99 mg/dL | EXTERNAL | | | Fingerstick | performed at [facility];[address] | | LAB | | | | [address];[place] | | | | | | [address] | | | | + + + + + + + + | Specimen | + + | | + + + +---------+ + + | Performing | Address | City/State/Zipcode | Phone Number | | Organization | | | | + +---------+ + + | EXTERNAL LAB | | | | + +---------+ + + POC Glucose (05/16/2018 2:22 PM PDT) + + + + + + | Component | Value | Ref Range | Performed | Pathologist | | | | | At | Signature | + + + + + + | Glucose, | 168 (H)Comment: Testing | 65 - 99 mg/dL | EXTERNAL | | | Fingerstick | performed at [facility];[address] | | LAB | | | | [address];[place], [place] | | | | | | [address] | | | | + + + + + + + + | Specimen | + + | | + + + +---------+ + + | Performing | Address | City/State/Zipcode | Phone Number | | Organization | | | | + +---------+ + + | EXTERNAL LAB | | | | + +---------+ + + POC Glucose (05/16/2018 1:33 PM PDT) + + + + + + | Component | Value | Ref Range | Performed | Pathologist | | | | | At | Signature | + + + + + + | Glucose, | 163 (H)Comment: Testing | 65 - 99 mg/dL | EXTERNAL | | | Fingerstick | performed at [facility];[address] | | LAB | | | | [address];[place], [place] | | | | | | [address] | | | | + + + + + + + + | Specimen | + + | | + + + +---------+ + + | Performing | Address | City/State/Zipcode | Phone Number | | Organization | | | | + +---------+ + + | EXTERNAL LAB | | | | + +---------+ + + XR Chest 1 Vw (05/16/2018 12:29 PM PDT) + + | Specimen | + + | | + + + + + | Impressions | Performed At | + + + | 1. Well-positioned endotracheal tube, left IJ Cordis venous | | | catheter, and mediastinal drain. NG tube proximal port may be in the | | | distal esophagus. It is not well seen. Consider dedicated abdominal | | | radiograph after advancement. This was discussed with the Audelia, the | | | patient's nurse on the date and time of dictation. 2. Evidence | | | of median sternotomy with prosthetic cardiac valve. 3. | | | Curvilinear line overlying the right axilla, reported to be external | | | to the patient. Electronically signed by Faheem Briseno MD on | | | 05/16/2018 12:39 PM | | + + + + + + | Narrative | Performed At | + + + | [facility] XR CHEST 1 VIEW 05/16/2018 12:29 PM HISTORY: | | | Assessment for life support lines and tubes. TECHNIQUE: AP | | | chest radiograph 1222 hours. COMPARISON: Chest radiograph April | | | 2017. FINDINGS: A newly seen endotracheal tube is noted, with | | | the tip 4.4 cm from the ayesha. A newly seen nasogastric tube is | | | noted, with the proximal port thought to be in the distal esophagus. A | | | well-positioned mediastinal drain is newly seen. A left IJ central | | | venous catheter is noted, with the tip likely in the left | | | brachycephalic vein. A curvilinear line overlies the right axilla. | | | Newly noted median sternotomy wires are seen. A prosthetic cardiac | | | valves newly found. The lungs are clear. No pneumothorax or pleural | | | effusion is noted. | | + + + + + | Procedure Note | + + | Hansel, Erik Conversion - 05/03/2019 11:06 AM [facility] | | VIEW05/16/2018 12:29 PM HISTORY:Assessment for life support lines and tubes. TECHNIQUE:AP | | chest radiograph 1222 hours. COMPARISON:Chest radiograph May 04, 2018. FINDINGS:A | | newly seen endotracheal tube is noted, with the tip 4.4 cm from the ayesha. A newly seen | | nasogastric tube is noted, with the proximal port thought to be in the distal | | esophagus. A well-positioned mediastinal drain is newly seen. A left IJ central venous | | catheter is noted, with the tip likely in the left brachycephalic vein. A curvilinear | | line overlies the right axilla. Newly noted median sternotomy wires are seen. A | | prosthetic cardiac valves newly found. The lungs are clear. No pneumothorax or pleural | | effusion is noted. IMPRESSION: 1. Well-positioned endotracheal tube, left IJ Cordis | | venous catheter, and mediastinal drain. NG tube proximal port may be in the distal | | esophagus. It is not well seen. Consider dedicated abdominal radiograph after | | advancement. This was discussed with the Audelia, the patient's nurse on the date and time | | of dictation. 2. Evidence of median sternotomy with prosthetic cardiac valve. 3. | | Curvilinear line overlying the right axilla, reported to be external to the patient. | | | | | |Newly noted median sternotomy wires are seen. A prosthetic cardiac valves newly found. The lungs are clear. No pneumothorax or pleural effusion is noted. | | | |IMPRESSION: | |1. Well-positioned endotracheal tube, left IJ Cordis venous catheter, and mediastinal drai n. NG tube proximal port may be in the distal esophagus. It is not well seen. Consider dedic ated abdominal radiograph after advancement. This was discussed with | |the Audelia, the patient's nurse on the date and time of dictation. | | | |2. Evidence of median sternotomy with prosthetic cardiac valve. | | | |3. Curvilinear line overlying the right axilla, reported to be external to the patient. | | | | | + + ECG 12 lead (05/16/2018 12:28 PM PDT) + + + + + + | Component | Value | Ref Range | Performed | Pathologist | | | | | At | Signature | + + + + + + | DIAGNOSIS: | Normal sinus rhythmLow | | EXTERNAL | | | | voltage QRSProlonged | | LAB | | | | QTAbnormal ECGWhen | | | | | | compared with ECG of | | | | | | 10-MAY-2018 13:14,QRS | | | | | | axis Shifted | | | | | | rightCriteria for | | | | | | Inferior infarct are no | | | | | | longer PresentQT has | | | | | | lengthenedConfirmed by | | | | | | BRYNN RDZ ([id number]) on | | | | | | 05/17/2018 11:47:11 AM | | | | + + + + + + + + | Specimen | + + | | + + + + + | Narrative | Performed At | + + + | Historically converted procedure from [facility] Epic environment | EXTERNAL LAB | + + + + +---------+ + + | Performing | Address | City/State/Zipcode | Phone Number | | Organization | | | | + +---------+ + + | EXTERNAL LAB | | | | + +---------+ + + POC Glucose (05/16/2018 12:27 PM PDT) + + + + + + | Component | Value | Ref Range | Performed | Pathologist | | | | | At | Signature | + + + + + + | Glucose, | 128 (H)Comment: Testing | 65 - 99 mg/dL | EXTERNAL | | | Fingerstick | performed at [facility];[address] | | LAB | | | | [address];[place], [place] | | | | | | [address] | | | | + + + + + + + + | Specimen | + + | | + + + +---------+ + + | Performing | Address | City/State/Zipcode | Phone Number | | Organization | | | | + +---------+ + + | EXTERNAL LAB | | | | + +---------+ + + Calcium, Ionized (05/16/2018 12:27 PM PDT) + + + + + + | Component | Value | Ref Range | Performed | Pathologist | | | | | At | Signature | + + + + + + | Calcium | 1.12 | 1.08 - 1.25 | EXTERNAL | | | (Calc) | | mmol/L | LAB | | + + + + + + | pH, Bld | 7.400Comment: Testing | 7.300 - 7.450 | EXTERNAL | | | | performed at [facility];[address] | | LAB | | | | [address];[place], [place] | | | | | | [address] | | | | + + + + + + + + | Specimen | + + | Blood specimen | | (specimen) | + + + +---------+ + + | Performing | Address | City/State/Zipcode | Phone Number | | Organization | | | | + +---------+ + + | EXTERNAL LAB | | | | + +---------+ + + PTT (05/16/2018 12:26 PM PDT) + + + + + + | Component | Value | Ref Range | Performed | Pathologist | | | | | At | Signature | + + + + + + | aPTT, | 28Comment: Testing | 23 - 32 seconds | EXTERNAL | | | Patient | performed at [facility] | | LAB | | | | [address];[place] | | | | | | [address] | | | | + + + + + + + + | Specimen | + + | Blood specimen | | (specimen) | + + + +---------+ + + | Performing | Address | City/State/Zipcode | Phone Number | | Organization | | | | + +---------+ + + | EXTERNAL LAB | | | | + +---------+ + + Protime INR (05/16/2018 12:26 PM PDT) + + + + + + | Component | Value | Ref Range | Performed | Pathologist | | | | | At | Signature | + + + + + + | INR | 1.1Comment: REFERENCE | | EXTERNAL | | | | RANGE:0.9 - 1.2 | | LAB | | | | NON-ANTICOAGULATED2.0 | | | | | | - 3.0 ALL OTHER | | | | | | THERAPEUTIC | | | | | | INDICATIONS2.5 - 3.5 | | | | | | MECHANICAL HEART VALVES, | | | | | | RECURRENT OR SYSTEMIC | | | | | | EMBOLISMTesting | | | | | | performed at [facility] | | | | | | [facility];[place], [place] | | | | | | [address] | | | | + + + + + + + + | Specimen | + + | Blood specimen | | (specimen) | + + + +---------+ + + | Performing | Address | City/State/Zipcode | Phone Number | | Organization | | | | + +---------+ + + | EXTERNAL LAB | | | | + +---------+ + + Fibrinogen (05/16/2018 12:26 PM PDT) + + + + + + | Component | Value | Ref Range | Performed | Pathologist | | | | | At | Signature | + + + + + + | Fibrinogen | 274Comment: Testing | 200 - 450 mg/dL | EXTERNAL | | | | performed at [facility];[address] | | LAB | | | | [address];[place], [place] | | | | | | [address] | | | | + + + [...] + +---------+ + + External Lab: CBC (05/16/2018 12:26 PM PDT) + + + + + + | Component | Value | Ref Range | Performed | Pathologist | | | | | At | Signature | + + + + + + | WBC | 20.46 (H) | 3.80 - 11.00 | EXTERNAL | | | | | K/uL | LAB | | + + + + + + | Non- | 5.71 (H) | 4.20 - 5.70 | EXTERNAL | | | Red Blood | | M/uL | LAB | | | Cells | | | | | | Counted | | | | | + + + + + + | Hemoglobin | 12.5 (L) | 13.2 - 17.0 | EXTERNAL | | | | | g/dL | LAB | | + + + + + + | Hematocrit, | 40.0 | 39.0 - 50.0 % | EXTERNAL | | | POC | | | LAB | | + + + + + + | MCV | 70.0 (L) | 80.0 - 100.0 fl | EXTERNAL | | | | | | LAB | | + + + + + + | MCH | 21.9 (L) | 27.0 - 34.0 pg | EXTERNAL | | | | | | LAB | | + + + + + + | MCHC | 31.3 (L) | 32.0 - 35.5 | EXTERNAL | | | | | g/dL | LAB | | + + + + + + | RDW-CV | 52.5 | 37 - 53 fl | EXTERNAL | | | | | | LAB | | + + + + + + | Platelet | 164 | 150 - 400 K/uL | EXTERNAL | | | Count | | | LAB | | | Plasma | | | | | + + + + + + | MPV | 8.4 | fl | EXTERNAL | | | | | | LAB | | + + + + + + | Differentia | AUTOMATED | | EXTERNAL | | | l Type | | | LAB | | + + + + + + | % Segmented | 80.05 | % | EXTERNAL | | | | | | LAB | | | Neutrophils | | | | | + + + + + + | % | 14.07 | % | EXTERNAL | | | Lymphocytes | | | LAB | | + + + + + + | % Monocytes | 4.11 | % | EXTERNAL | | | | | | LAB | | + + + + + + | % | 1.23 | % | EXTERNAL | | | Eosinophils | | | LAB | | + + + + + + | % Basophils | 0.54 | % | EXTERNAL | | | | | | LAB | | + + + + + + | Absolute | 16.38 (H) | 1.90 - 7.40 | EXTERNAL | | | Segmented | | K/uL | LAB | | | Neutrophils | | | | | + + + + + + | Absolute | 2.88 | 1.00 - 3.90 | EXTERNAL | | | Lymphocytes | | K/uL | LAB | | + + + + + + | Absolute | 0.84 (H) | 0.00 - 0.80 | EXTERNAL | | | Monocytes | | K/uL | LAB | | + + + + + + | Absolute | 0.25 | 0.00 - 0.50 | EXTERNAL | | | Eosinophils | | K/uL | LAB | | + + + + + + | Absolute | 0.11 (H) | 0.00 - 0.10 | EXTERNAL | | | Basophils | | K/uL | LAB | | + + + + + + | RBC | 2+Comment: | | EXTERNAL | | | Morphology | MICRO2+HYPO1+ANISONORMAL | | LAB | | | | PLT MORPHTesting | | | | | | performed at [facility] | | | | | | [facility];[place], [place] | | | | | | [address] | | | | | |ANISO | | | | | |NORMAL PLT MORPH | | | | | |Testing performed at [facility];[address] [place] [address];[place] [address] | | | | | | | [...] | | | + +---------+ + + Magnesium (05/16/2018 12:26 PM PDT) + + + + + + | Component | Value | Ref Range | Performed | Pathologist | | | | | At | Signature | + + + + + + | Magnesium | 2.7 (H)Comment: Testing | 1.7 - 2.4 mg/dL | EXTERNAL | | | | performed at [facility];[address] | | LAB | | | | [address];[place], [place] | | | | | | [address] | | | | + + + + + + + + | Specimen | + + | Blood specimen | | (specimen) | + + + +---------+ + + | Performing | Address | City/State/Zipcode | Phone Number | | Organization | | | | + +---------+ + + | EXTERNAL LAB | | | | + +---------+ + + Basic Metabolic Panel (05/16/2018 12:26 PM PDT) + + + + + + | Component | Value | Ref Range | Performed | Pathologist | | | | | At | Signature | + + + + + + | Na | 143 | 135 - 145 | EXTERNAL | | | | | mmol/L | LAB | | + + + + + + | K | 5.1 (H) | 3.5 - 4.9 | EXTERNAL | | | | | mmol/L | LAB | | + + + + + + | Cl | 112 (H) | 99 - 109 mmol/L | EXTERNAL | | | | | | LAB | | + + + + + + | CO2 | 24 | 23 - 32 mmol/L | EXTERNAL | | | | | | LAB | | + + + + + + | Anion Gap | 12 | 5 - 20 mmol/L | EXTERNAL | | | | | | LAB | | + + + + + + | Glucose, | 134 (H) | 65 - 99 mg/dL | EXTERNAL | | | Fasting | | | LAB | | + + + + + + | BUN | 11 | 8 - 25 mg/dL | EXTERNAL | | | | | | LAB | | + + + + + + | Creatinine | 0.65 (L) | 0.70 - 1.30 | EXTERNAL | | | | | mg/dL | LAB | | + + + + + + | BUN/Creatin | 17 | | EXTERNAL | | | ine Ratio | | | LAB | | + + + + + + | Calcium | 7.6 (L) | 8.5 - 10.5 | EXTERNAL | | | | | mg/dL | LAB | | + + + + + + | Estimated | >60Comment: GFR <60: | mL/min/1.73m2 | EXTERNAL | | | GFR | CHRONIC KIDNEY DISEASE, | | LAB | | | | IF FOUND OVER A 3 MONTH | | | | | | PERIOD.GFR <15: KIDNEY | | | | | | FAILURE.FOR | | | | | | AMERICANS, MULTIPLY THE | | | | | | CALCULATED GFR BY | | | | | | 1.210.This eGFR is | | | | | | calculated using the | | | | | | MDRD IDMS traceable | | | | | | equation.Testing | | | | | | performed at [facility] | | | | | | [facility];[place], [place] | | | | | | [id number] | | | | + + + + + + + + | Specimen | + + | Blood specimen | | (specimen) | + + + +---------+ + + | Performing | Address | City/State/Zipcode | Phone Number | | Organization | | | | + +---------+ + + | EXTERNAL LAB | | | | + +---------+ + + POC CG 4, ISTAT Arterial (05/16/2018 11:15 AM PDT) + + + + + + | Component | Value | Ref Range | Performed | Pathologist | | | | | At | Signature | + + + + + + | PH ART | 7.357 | 7.350 - 7.450 | EXTERNAL | | | | | | LAB | | + + + + + + | PCO2 ART | 47 (H) | 35 - 45 mmHg | EXTERNAL | | | | | | LAB | | + + + + + + | PO2 ART | 393 (HH) | 80 - 105 mmHg | EXTERNAL | | | | | | LAB | | + + + + + + | Lactate, | 1.45 (H) | 0.36 - 1.25 | EXTERNAL | | | Arterial | | mmol/L | LAB | | + + + + + + | HCO3 ART | 26 | 22 - 26 mmol/L | EXTERNAL | | | | | | LAB | | + + + + + + | POC | 27 | 23 - 27 mEq/L | EXTERNAL | | | APPEARANCE | | | LAB | | | UA | | | | | + + + + + + | Base | 1 | 0 - 3 mEq/L | EXTERNAL | | | Excess, | | | LAB | | | Arterial | | | | | + + + + + + | O2 SAT ART | 100 (H)Comment: Testing | 95 - 98 % | EXTERNAL | | | | performed at [facility];[address] | | LAB | | | | Marg[address] Cavazos;[place] | | | | | | [id number] | | | | + + + + + + + + | Specimen | + + | | + + + +---------+ + + | Performing | Address | City/State/Zipcode | Phone Number | | Organization | | | | + +---------+ + + | EXTERNAL LAB | | | | + +---------+ + + LORI GARCIA CG8, Arterial (05/16/2018 11:11 AM PDT) + + + + + + | Component | Value | Ref Range | Performed | Pathologist | | | | | At | Signature | + + + + + + | PH ART | 7.349 (L) | 7.350 - 7.450 | EXTERNAL | | | | | | LAB | | + + + + + + | PCO2 ART | 51 (H) | 35 - 45 mmHg | EXTERNAL | | | | | | LAB | | + + + + + + | PO2 ART | 387 (HH) | 80 - 105 mmHg | EXTERNAL | | | | | | LAB | | + + + + + + | HCO3 ART | 28 (H) | 22 - 26 mmol/L | EXTERNAL | | | | | | LAB | | + + + + + + | POC | 30 (H) | 23 - 27 mEq/L | EXTERNAL | | | APPEARANCE | | | LAB | | | UA | | | | | + + + + + + | Base | 2 | 0 - 3 mEq/L | EXTERNAL | | | Excess, | | | LAB | | | Arterial | | | | | + + + + + + | O2 SAT ART | 100 (H) | 95 - 98 % | EXTERNAL | | | | | | LAB | | + + + + + + | Sodium, POC | 136 | 135 - 145 mEq/L | EXTERNAL | | | | | | LAB | | + + + + + + | Potassium, | 4.8 | 3.5 - 5.0 mEq/L | EXTERNAL | | | POC | | | LAB | | + + + + + + | Ionized | 1.22 | 1.12 - 1.32 | EXTERNAL | | | Calcium, | | mmol/L | LAB | | | POC | | | | | + + + + + + | Glucose, | 156 (H) | 65 - 99 mg/dL | EXTERNAL | | | POC | | | LAB | | + + + + + + | Hematocrit, | 29 (L) | 40.0 - 50.0 % | EXTERNAL | | | POC | | | LAB | | + + + + + + | Hemoglobin, | 9.9 (L)Comment: Testing | 13.7 - 16.7 | EXTERNAL | | | POC | performed at [facility];[address] | g/dL | LAB | | | | Margarita Cavazos;[place], [place] | | | | | | [address] | | | | + + + + + + + + | Specimen | + + | | + + + +---------+ + + | Performing | Address | City/State/Zipcode | Phone Number | | Organization | | | | + +---------+ + + | EXTERNAL LAB | | | | + +---------+ + + ECHO Transesophageal (CLAUDIA) - [place] (05/16/2018 11:07 AM PDT) + + | Specimen | + + | | + + + + + | Impressions | Performed At | + + + | 1. Mild-moderate regurgitation. 2. Mobile masses on aortic valve | | | cusps measuring 0.75 cm x 0.46 cm and 0.57 cm x 0.34 cm, most likely | | | vegetations. 3. Mild mitral regurgitation. 4. Trace regurgitation. | | | 5. Overall left ventricular systolic function is low-normal with, an | | | EF between 50 - 55 %. 6. Post op: Bioprosthetic valve in the aortic | | | position. Trivial paravalvular leak. No evidence of or ALETA. EF | | | 55%. No effusions noted. | | + + + + + + | Narrative | Performed At | + + + | Patient Name: JOSÉ MIGUEL FLOYD Date of : 1960 | | | Performing Physician: Debbie Irizarry | | | | | | INDICATIONS AVR CONCLUSIONS 1. | | | Mild-moderate regurgitation. 2. Mobile masses on aortic valve cusps | | | measuring 0.75 cm x 0.46 cm and 0.57 cm x 0.34 cm, most likely | | | vegetations. 3. Mild mitral regurgitation. 4. Trace regurgitation. | | | 5. Overall left ventricular systolic function is low-normal with, an | | | EF between 50 - 55 %. 6. Post op: Bioprosthetic valve in the aortic | | | position. Trivial paravalvular leak. No evidence of or ALETA. EF | | | 55%. No effusions noted. FINDINGS -------- Procedure Details: | | | 2D, Color-flow Doppler, Pulsed-wave and Continuous-wave. Procedure | | | Details: Intubated: Y Procedure Details: Anesthetic Type: General | | | anesthesia Procedure Details: Insertion: Easy Procedure Details: | | | Probe type: Omniplane Procedure Details: Complications: N | | | Ascending Aorta: Normal size. Ascending Aorta: No dissection. Aortic | | | Arch: Normal size. Aortic Arch: Plaque is present with a thickness | | | of 0-3mm. Aortic Arch: Plaque is not mobile. Aortic Arch: No | | | dissection. Descending Aorta: Normal size. Descending Aorta: Plaque | | | is present with a thickness of 0-3mm. Descending Aorta: Plaque is not | | | mobile. Descending Aorta: No dissection. Aortic Valve: No Stenosis. | | | Aortic Valve: The aortic valve area by continuity equation is 1.2 | | | cm2. Aortic Valve: Peak/mean gradient across the valve is 12 mmHg/ 7 | | | mmHg. Aortic Valve: Mild-moderate regurgitation. Aortic Valve: | | | Mobile masses on aortic valve cusps measuring 0.75 cm x 0.46 cm and | | | 0.57 cm x 0.34 cm, most likely vegetations. Mitral Valve: Mild mitral | | | regurgitation. Tricuspid Valve: Trace regurgitation. Right Atrium: | | | Normal size. Right Atrium: No spontaneous echo contrast. Right | | | Atrium: No thrombus noted. Right Atrium: No mass present. Left | | | Ventricle: Overall left ventricular systolic function is low-normal | | | with, an EF between 50 - 55 %. Right Ventricle: The right ventricle | | | is normal in size. Right Ventricle: The right ventricular systolic | | | function is normal. Pericardium: The pericardium is normal. Pleura: | | | Normal. Post-Op: Post op: Bioprosthetic valve in the aortic position. | | | Trivial paravalvular leak. No evidence of or ALETA. EF 55%. No | | | effusions noted. Complications: None. MEASUREMENTS | | | LVOT Diam: 2.11 cm HR: 166.73 BPM AV maxPG: | | | 12.19 mmHg AV meanP.31 mmHg AV Vmax: 1.74 m/s AV Vmean: | | | 1.28 m/s AV VTI: 46.09 cm MARTHA Vmax: 1.27 cm2 MARTHA (VTI): | | | 1.21 cm2 LVCI Dopp: 4.48 l/minm2 LVCO Dopp: 9.72 l/min HR: | | | 173.4 BPM LVOT maxP.62 mmHg LVOT meanP.92 mmHg | | | LVSI Dopp: 25.85 ml/m2 LVSV Dopp: 56.09 ml LVOT Vmax: 0.63 | | | m/s LVOT Vmean: 0.46 m/s LVOT VTI: 15.99 cm Lithographic Photographer: | | | JR Authenticated by: Debbie Irizarry Report Date/Time: 05-20-2018 16:7:33 | | | | | + + + + + | Procedure Note | + + | Erik Hamm - 05/03/2019 11:06 AM PDT Patient Name: Paulina FLOYD of | | : 1960 Performing Physician: Debbie | | Kin INDICATIONS | | -AVR CONCLUSIONS 1. Mild-moderate regurgitation.2. Mobile masses on aortic | | valve cusps measuring 0.75 cm x 0.46 cm and 0.57 cm x 0.34 cm, most likely | | vegetations.3. Mild mitral regurgitation.4. Trace regurgitation.5. Overall left | | ventricular systolic function is low-normal with, an EF between 50 - 55 %.6. Post op: | | Bioprosthetic valve in the aortic position. Trivial paravalvular leak. No evidence of | | or ALETA. EF 55%. No effusions noted. FINDINGS--------Procedure Details: 2D, | | Color-flow Doppler, Pulsed-wave and Continuous-wave.Procedure Details: Intubated: | | YProcedure Details: Anesthetic Type: General anesthesiaProcedure Details: Insertion: | | EasyProcedure Details: Probe type: OmniplaneProcedure Details: Complications: | | NAscending Aorta: Normal size.Ascending Aorta: No dissection.Aortic Arch: Normal | | size.Aortic Arch: Plaque is present with a thickness of 0-3mm.Aortic Arch: Plaque is not | | mobile.Aortic Arch: No dissection.Descending Aorta: Normal size.Descending Aorta: | | Plaque is present with a thickness of 0-3mm.Descending Aorta: Plaque is not | | mobile.Descending Aorta: No dissection.Aortic Valve: No Stenosis.Aortic Valve: The | | aortic valve area by continuity equation is 1.2 cm2.Aortic Valve: Peak/mean gradient | | across the valve is 12 mmHg/ 7 mmHg.Aortic Valve: Mild-moderate regurgitation.Aortic | | Valve: Mobile masses on aortic valve cusps measuring 0.75 cm x 0.46 cm and 0.57 cm x | | 0.34 cm, most likely vegetations.Mitral Valve: Mild mitral regurgitation.Tricuspid | | Valve: Trace regurgitation.Right Atrium: Normal size.Right Atrium: No spontaneous echo | | contrast.Right Atrium: No thrombus noted.Right Atrium: No mass present.Left Ventricle: | | Overall left ventricular systolic function is low-normal with, an EF between 50 - 55 | | %.Right Ventricle: The right ventricle is normal in size.Right Ventricle: The right | | ventricular systolic function is normal.Pericardium: The pericardium is normal.Pleura: | | Normal.Post-Op: Post op: Bioprosthetic valve in the aortic position. Trivial | | paravalvular leak. No evidence of or ALETA. EF 55%. No effusions noted.Complications: | | None. MEASUREMENTS LVOT Diam: 2.11 cmHR: 166.73 BPMAV maxP.19 | | mmHgAV meanP.31 mmHgAV Vmax: 1.74 m/Antonio Vmean: 1.28 m/Antonio VTI: 46.09 cmAVA | | Vmax: 1.27 cm2AVA (VTI): 1.21 eh4CPRL Dopp: 4.48 l/viwi3JCNH Dopp: 9.72 l/minHR: | | 173.4 BPMLVOT maxP.62 mmHgLVOT meanP.92 mmHgLVSI Dopp: 25.85 ml/m2LVSV | | Dopp: 56.09 mlLVOT Vmax: 0.63 m/sLVOT Vmean: 0.46 m/sLVOT VTI: 15.99 cm | | Lithographic Photographer: Jannaticated by: Debbie Kinsey Date/Time: 05-20-2018 16:7:33 | | IMPRESSION: 1. Mild-moderate regurgitation.2. Mobile masses on aortic valve cusps | | measuring 0.75 cm x 0.46 cm and 0.57 cm x 0.34 cm, most likely vegetations.3. Mild | | mitral regurgitation.4. Trace regurgitation.5. Overall left ventricular systolic | | function is low-normal with, an EF between 50 - 55 %.6. Post op: Bioprosthetic valve in | | the aortic position. Trivial paravalvular leak. No evidence of or ALETA. EF 55%. No | | effusions noted. | |Aortic Valve: The aortic valve area by continuity equation is 1.2 cm2. | |Aortic Valve: Peak/mean gradient across the valve is 12 mmHg/ 7 mmHg. | |Aortic Valve: Mild-moderate regurgitation. | |Aortic Valve: Mobile masses on aortic valve cusps measuring 0.75 cm x 0.46 cm and 0.57 cm x 0.34 cm, most likely vegetations. | |Mitral Valve: Mild mitral regurgitation. | |Tricuspid Valve: Trace regurgitation. | |Right Atrium: Normal size. | |Right Atrium: No spontaneous echo contrast. | |Right Atrium: No thrombus noted. | |Right Atrium: No mass present. | |Left Ventricle: Overall left ventricular systolic function is low-normal with, an EF betwee n 50 - 55 %. | |Right Ventricle: The right ventricle is normal in size. | |Right Ventricle: The right ventricular systolic function is normal. | |Pericardium: The pericardium is normal. | |Pleura: Normal. | |Post-Op: Post op: Bioprosthetic valve in the aortic position. Trivial paravalvular leak. N o evidence of or ALETA. EF 55%. No effusions noted. | |Complications: None. | | | |MEASUREMENTS | | | |LVOT Diam: 2.11 cm | |HR: 166.73 BPM | |AV maxP.19 mmHg | |AV meanP.31 mmHg | |AV Vmax: 1.74 m/s | |AV Vmean: 1.28 m/s | |AV VTI: 46.09 cm | |MARTHA Vmax: 1.27 cm2 | |MARTHA (VTI): 1.21 cm2 | |LVCI Dopp: 4.48 l/minm2 | |LVCO Dopp: 9.72 l/min | |HR: 173.4 BPM | |LVOT maxP.62 mmHg | |LVOT meanP.92 mmHg | |LVSI Dopp: 25.85 ml/m2 | |LVSV Dopp: 56.09 ml | |LVOT Vmax: 0.63 m/s | |LVOT Vmean: 0.46 m/s | |LVOT VTI: 15.99 cm | | | |Lithographic Photographer: | |Authenticated by: Debbie Irizarry | |Report Date/Time: 05-20-2018 16:7:33 | | | |IMPRESSION: | |1. Mild-moderate regurgitation. | |2. Mobile masses on aortic valve cusps measuring 0.75 cm x 0.46 cm and 0.57 cm x 0.34 cm, m ost likely vegetations. | |3. Mild mitral regurgitation. | |4. Trace regurgitation. | |5. Overall left ventricular systolic function is low-normal with, an EF between 50 - 55 %. | |6. Post op: Bioprosthetic valve in the aortic position. Trivial paravalvular leak. No evid ence of or ALETA. EF 55%. No effusions noted. | + + POC CG 4, ISTAT Arterial (05/16/2018 10:31 AM PDT) + + + + + + | Component | Value | Ref Range | Performed | Pathologist | | | | | At | Signature | + + + + + + | PH ART | 7.397 | 7.350 - 7.450 | EXTERNAL | | | | | | LAB | | + + + + + + | PCO2 ART | 42 | 35 - 45 mmHg | EXTERNAL | | | | | | LAB | | + + + + + + | PO2 ART | 165 (H) | 80 - 105 mmHg | EXTERNAL | | | | | | LAB | | + + + + + + | Lactate, | 1.78 (H) | 0.36 - 1.25 | EXTERNAL | | | Arterial | | mmol/L | LAB | | + + + + + + | HCO3 ART | 26 | 22 - 26 mmol/L | EXTERNAL | | | | | | LAB | | + + + + + + | POC | 27 | 23 - 27 mEq/L | EXTERNAL | | | APPEARANCE | | | LAB | | | UA | | | | | + + + + + + | Base | 1 | 0 - 3 mEq/L | EXTERNAL | | | Excess, | | | LAB | | | Arterial | | | | | + + + + + + | O2 SAT ART | 99 (H)Comment: Testing | 95 - 98 % | EXTERNAL | | | | performed at [facility];[address] | | LAB | | | | [address];[place] | | | | | | [id number] | | | | + + + + + + + + | Specimen | + + | | + + + +---------+ + + | Performing | Address | City/State/Zipcode | Phone Number | | Organization | | | | + +---------+ + + | EXTERNAL LAB | | | | + +---------+ + + POC ISTAT, CG8, Arterial (05/16/2018 10:24 AM PDT) + + + + + + | Component | Value | Ref Range | Performed | Pathologist | | | | | At | Signature | + + + + + + | PH ART | 7.375 | 7.350 - 7.450 | EXTERNAL | | | | | | LAB | | + + + + + + | PCO2 ART | 45 | 35 - 45 mmHg | EXTERNAL | | | | | | LAB | | + + + + + + | PO2 ART | 146 (H) | 80 - 105 mmHg | EXTERNAL | | | | | | LAB | | + + + + + + | HCO3 ART | 26 | 22 - 26 mmol/L | EXTERNAL | | | | | | LAB | | + + + + + + | POC | 28 (H) | 23 - 27 mEq/L | EXTERNAL | | | APPEARANCE | | | LAB | | | UA | | | | | + + + + + + | Base | 1 | 0 - 3 mEq/L | EXTERNAL | | | Excess, | | | LAB | | | Arterial | | | | | + + + + + + | O2 SAT ART | 99 (H) | 95 - 98 % | EXTERNAL | | | | | | LAB | | + + + + + + | Sodium, POC | 139 | 135 - 145 mEq/L | EXTERNAL | | | | | | LAB | | + + + + + + | Potassium, | 5.5 (H) | 3.5 - 5.0 mEq/L | EXTERNAL | | | POC | | | LAB | | + + + + + + | Ionized | 1.10 (L) | 1.12 - 1.32 | EXTERNAL | | | Calcium, | | mmol/L | LAB | | | POC | | | | | + + + + + + | Glucose, | 132 (H) | 65 - 99 mg/dL | EXTERNAL | | | POC | | | LAB | | + + + + + + | Hematocrit, | 33 (L) | 40.0 - 50.0 % | EXTERNAL | | | POC | | | LAB | | + + + + + + | Hemoglobin, | 11.2 (L)Comment: Testing | 13.7 - 16.7 | EXTERNAL | | | POC | performed at [facility];[address] | g/dL | LAB | | | | Margarita Cavazos;[place], [place] | | | | | | [address] | | | | + + + + + + + + | Specimen | + + | | + + + +---------+ + + | Performing | Address | City/State/Zipcode | Phone Number | | Organization | | | | + +---------+ + + | EXTERNAL LAB | | | | + +---------+ + + POC JOSE, CG8, Arterial (05/16/2018 9:57 AM PDT) + + + + + + | Component | Value | Ref Range | Performed | Pathologist | | | | | At | Signature | + + + + + + | PH ART | 7.388 | 7.350 - 7.450 | EXTERNAL | | | | | | LAB | | + + + + + + | PCO2 ART | 45 | 35 - 45 mmHg | EXTERNAL | | | | | | LAB | | + + + + + + | PO2 ART | 147 (H) | 80 - 105 mmHg | EXTERNAL | | | | | | LAB | | + + + + + + | HCO3 ART | 27 (H) | 22 - 26 mmol/L | EXTERNAL | | | | | | LAB | | + + + + + + | POC | 28 (H) | 23 - 27 mEq/L | EXTERNAL | | | APPEARANCE | | | LAB | | | UA | | | | | + + + + + + | Base | 2 | 0 - 3 mEq/L | EXTERNAL | | | Excess, | | | LAB | | | Arterial | | | | | + + + + + + | O2 SAT ART | 99 (H) | 95 - 98 % | EXTERNAL | | | | | | LAB | | + + + + + + | Sodium, POC | 137 | 135 - 145 mEq/L | EXTERNAL | | | | | | LAB | | + + + + + + | Potassium, | 5.4 (H) | 3.5 - 5.0 mEq/L | EXTERNAL | | | POC | | | LAB | | + + + + + + | Ionized | 1.09 (L) | 1.12 - 1.32 | EXTERNAL | | | Calcium, | | mmol/L | LAB | | | POC | | | | | + + + + + + | Glucose, | 124 (H) | 65 - 99 mg/dL | EXTERNAL | | | POC | | | LAB | | + + + + + + | Hematocrit, | 33 (L) | 40.0 - 50.0 % | EXTERNAL | | | POC | | | LAB | | + + + + + + | Hemoglobin, | 11.2 (L)Comment: Testing | 13.7 - 16.7 | EXTERNAL | | | POC | performed at [facility];888 | g/dL | LAB | | | | Margarita Cavazos;[place], [place] | | | | | | [address] | | | | + + + + + + + + | Specimen | + + | | + + + +---------+ + + | Performing | Address | City/State/Zipcode | Phone Number | | Organization | | | | + +---------+ + + | EXTERNAL LAB | | | | + +---------+ + + POC CG 4, ISTAT Arterial (05/16/2018 9:31 AM PDT) + + + + + + | Component | Value | Ref Range | Performed | Pathologist | | | | | At | Signature | + + + + + + | PH ART | 7.397 | 7.350 - 7.450 | EXTERNAL | | | | | | LAB | | + + + + + + | PCO2 ART | 47 (H) | 35 - 45 mmHg | EXTERNAL | | | | | | LAB | | + + + + + + | PO2 ART | 191 (H) | 80 - 105 mmHg | EXTERNAL | | | | | | LAB | | + + + + + + | Lactate, | 1.40 (H) | 0.36 - 1.25 | EXTERNAL | | | Arterial | | mmol/L | LAB | | + + + + + + | HCO3 ART | 29 (H) | 22 - 26 mmol/L | EXTERNAL | | | | | | LAB | | + + + + + + | POC | 30 (H) | 23 - 27 mEq/L | EXTERNAL | | | APPEARANCE | | | LAB | | | UA | | | | | + + + + + + | Base | 4 (H) | 0 - 3 mEq/L | EXTERNAL | | | Excess, | | | LAB | | | Arterial | | | | | + + + + + + | O2 SAT ART | 100 (H)Comment: Testing | 95 - 98 % | EXTERNAL | | | | performed at [facility];[address] | | LAB | | | | [address] Cavazos;[place] | | | | | | [address] | | | | + + + + + + + + | Specimen | + + | | + + + +---------+ + + | Performing | Address | City/State/Zipcode | Phone Number | | Organization | | | | + +---------+ + + | EXTERNAL LAB | | | | + +---------+ + + POC JOSE, CG8, Arterial (05/16/2018 9:27 AM PDT) + + + + + + | Component | Value | Ref Range | Performed | Pathologist | | | | | At | Signature | + + + + + + | PH ART | 7.377 | 7.350 - 7.450 | EXTERNAL | | | | | | LAB | | + + + + + + | PCO2 ART | 47 (H) | 35 - 45 mmHg | EXTERNAL | | | | | | LAB | | + + + + + + | PO2 ART | 198 (H) | 80 - 105 mmHg | EXTERNAL | | | | | | LAB | | + + + + + + | HCO3 ART | 28 (H) | 22 - 26 mmol/L | EXTERNAL | | | | | | LAB | | + + + + + + | POC | 29 (H) | 23 - 27 mEq/L | EXTERNAL | | | APPEARANCE | | | LAB | | | UA | | | | | + + + + + + | Base | 3 | 0 - 3 mEq/L | EXTERNAL | | | Excess, | | | LAB | | | Arterial | | | | | + + + + + + | O2 SAT ART | 100 (H) | 95 - 98 % | EXTERNAL | | | | | | LAB | | + + + + + + | Sodium, POC | 138 | 135 - 145 mEq/L | EXTERNAL | | | | | | LAB | | + + + + + + | Potassium, | 5.3 (H) | 3.5 - 5.0 mEq/L | EXTERNAL | | | POC | | | LAB | | + + + + + + | Ionized | 1.12 | 1.12 - 1.32 | EXTERNAL | | | Calcium, | | mmol/L | LAB | | | POC | | | | | + + + + + + | Glucose, | 118 (H) | 65 - 99 mg/dL | EXTERNAL | | | POC | | | LAB | | + + + + + + | Hematocrit, | 31 (L) | 40.0 - 50.0 % | EXTERNAL | | | POC | | | LAB | | + + + + + + | Hemoglobin, | 10.5 (L)Comment: Testing | 13.7 - 16.7 | EXTERNAL | | | POC | performed at [facility];888 | g/dL | LAB | | | | [address];[place], [place] | | | | | | [address] | | | | + + + + + + + + | Specimen | + + | | + + + +---------+ + + | Performing | Address | City/State/Zipcode | Phone Number | | Organization | | | | + +---------+ + + | EXTERNAL LAB | | | | + +---------+ + + Culture, Tissue, Smear, with Anaerobes (05/16/2018 9:05 AM PDT) + + | Specimen | + + | | + + + + + | Narrative | Performed At | + + + | Specimen Description TISSUE GRAM STAIN | EXTERNAL LAB | | 1+ | | | WBC'S SEEN | | | NO ORGANISMS SEEN CULTURE | | | NO GROWTH 4 DAYS | | + + + + +---------+ + + | Performing | Address | City/State/Zipcode | Phone Number | | Organization | | | | + +---------+ + + | EXTERNAL LAB | | | | + +---------+ + + POC ISTAClara, CG8, Arterial (05/16/2018 8:58 AM PDT) + + + + + + | Component | Value | Ref Range | Performed | Pathologist | | | | | At | Signature | + + + + + + | PH ART | 7.401 | 7.350 - 7.450 | EXTERNAL | | | | | | LAB | | + + + + + + | PCO2 ART | 51 (H) | 35 - 45 mmHg | EXTERNAL | | | | | | LAB | | + + + + + + | PO2 ART | 355 (HH) | 80 - 105 mmHg | EXTERNAL | | | | | | LAB | | + + + + + + | HCO3 ART | 31 (H) | 22 - 26 mmol/L | EXTERNAL | | | | | | LAB | | + + + + + + | POC | 33 (H) | 23 - 27 mEq/L | EXTERNAL | | | APPEARANCE | | | LAB | | | UA | | | | | + + + + + + | Base | 7 (H) | 0 - 3 mEq/L | EXTERNAL | | | Excess, | | | LAB | | | Arterial | | | | | + + + + + + | O2 SAT ART | 100 (H) | 95 - 98 % | EXTERNAL | | | | | | LAB | | + + + + + + | Sodium, POC | 136 | 135 - 145 mEq/L | EXTERNAL | | | | | | LAB | | + + + + + + | Potassium, | 3.8 | 3.5 - 5.0 mEq/L | EXTERNAL | | | POC | | | LAB | | + + + + + + | Ionized | 0.98 (L) | 1.12 - 1.32 | EXTERNAL | | | Calcium, | | mmol/L | LAB | | | POC | | | | | + + + + + + | Glucose, | 109 (H) | 65 - 99 mg/dL | EXTERNAL | | | POC | | | LAB | | + + + + + + | Hematocrit, | 33 (L) | 40.0 - 50.0 % | EXTERNAL | | | POC | | | LAB | | + + + + + + | Hemoglobin, | 11.2 (L)Comment: Testing | 13.7 - 16.7 | EXTERNAL | | | POC | performed at [facility];888 | g/dL | LAB | | | | [address]ita Cavazos;[place], [place] | | | | | | [address] | | | | + + + + + + + + | Specimen | + + | | + + + +---------+ + + | Performing | Address | City/State/Zipcode | Phone Number | | Organization | | | | + +---------+ + + | EXTERNAL LAB | | | | + +---------+ + + POC JOSE CG8, Arterial (05/16/2018 8:27 AM PDT) + + + + + + | Component | Value | Ref Range | Performed | Pathologist | | | | | At | Signature | + + + + + + | PH ART | 7.254 (L) | 7.350 - 7.450 | EXTERNAL | | | | | | LAB | | + + + + + + | PCO2 ART | 71 (HH) | 35 - 45 mmHg | EXTERNAL | | | | | | LAB | | + + + + + + | PO2 ART | 500 (HH) | 80 - 105 mmHg | EXTERNAL | | | | | | LAB | | + + + + + + | HCO3 ART | 31 (H) | 22 - 26 mmol/L | EXTERNAL | | | | | | LAB | | + + + + + + | POC | 33 (H) | 23 - 27 mEq/L | EXTERNAL | | | APPEARANCE | | | LAB | | | UA | | | | | + + + + + + | Base | 4 (H) | 0 - 3 mEq/L | EXTERNAL | | | Excess, | | | LAB | | | Arterial | | | | | + + + + + + | O2 SAT ART | 100 (H) | 95 - 98 % | EXTERNAL | | | | | | LAB | | + + + + + + | Sodium, POC | 136 | 135 - 145 mEq/L | EXTERNAL | | | | | | LAB | | + + + + + + | Potassium, | 3.9 | 3.5 - 5.0 mEq/L | EXTERNAL | | | POC | | | LAB | | + + + + + + | Ionized | 1.15 | 1.12 - 1.32 | EXTERNAL | | | Calcium, | | mmol/L | LAB | | | POC | | | | | + + + + + + | Glucose, | 111 (H) | 65 - 99 mg/dL | EXTERNAL | | | POC | | | LAB | | + + + + + + | Hematocrit, | 37 (L) | 40.0 - 50.0 % | EXTERNAL | | | POC | | | LAB | | + + + + + + | Hemoglobin, | 12.6 (L)Comment: Testing | 13.7 - 16.7 | EXTERNAL | | | POC | performed at [facility];888 | g/dL | LAB | | | | [address];[place] | | | | | | [id number] | | | | + + + + + + + + | Specimen | + + | | + + + +---------+ + + | Performing | Address | City/State/Zipcode | Phone Number | | Organization | | | | + +---------+ + + | EXTERNAL LAB | | | | + +---------+ + + POC CG 4, ISTAT Arterial (05/16/2018 7:56 AM PDT) + + + + + + | Component | Value | Ref Range | Performed | Pathologist | | | | | At | Signature | + + + + + + | PH ART | 7.408 | 7.350 - 7.450 | EXTERNAL | | | | | | LAB | | + + + + + + | PCO2 ART | 46 (H) | 35 - 45 mmHg | EXTERNAL | | | | | | LAB | | + + + + + + | PO2 ART | 462 (HH) | 80 - 105 mmHg | EXTERNAL | | | | | | LAB | | + + + + + + | Lactate, | 1.38 (H) | 0.36 - 1.25 | EXTERNAL | | | Arterial | | mmol/L | LAB | | + + + + + + | HCO3 ART | 29 (H) | 22 - 26 mmol/L | EXTERNAL | | | | | | LAB | | + + + + + + | POC | 30 (H) | 23 - 27 mEq/L | EXTERNAL | | | APPEARANCE | | | LAB | | | UA | | | | | + + + + + + | Base | 4 (H) | 0 - 3 mEq/L | EXTERNAL | | | Excess, | | | LAB | | | Arterial | | | | | + + + + + + | O2 SAT ART | 100 (H)Comment: Testing | 95 - 98 % | EXTERNAL | | | | performed at [facility];[address] | | LAB | | | | [address];[place] | | | | | | [phone] | | | | + + + + + + + + | Specimen | + + | | + + + +---------+ + + | Performing | Address | City/State/Zipcode | Phone Number | | Organization | | | | + +---------+ + + | EXTERNAL LAB | | | | + +---------+ + + POC ISJESIKA, CG8, Arterial (05/16/2018 7:51 AM PDT) + + + + + + | Component | Value | Ref Range | Performed | Pathologist | | | | | At | Signature | + + + + + + | PH ART | 7.410 | 7.350 - 7.450 | EXTERNAL | | | | | | LAB | | + + + + + + | PCO2 ART | 49 (H) | 35 - 45 mmHg | EXTERNAL | | | | | | LAB | | + + + + + + | PO2 ART | 499 (HH) | 80 - 105 mmHg | EXTERNAL | | | | | | LAB | | + + + + + + | HCO3 ART | 31 (H) | 22 - 26 mmol/L | EXTERNAL | | | | | | LAB | | + + + + + + | POC | 32 (H) | 23 - 27 mEq/L | EXTERNAL | | | APPEARANCE | | | LAB | | | UA | | | | | + + + + + + | Base | 6 (H) | 0 - 3 mEq/L | EXTERNAL | | | Excess, | | | LAB | | | Arterial | | | | | + + + + + + | O2 SAT ART | 100 (H) | 95 - 98 % | EXTERNAL | | | | | | LAB | | + + + + + + | Sodium, POC | 139 | 135 - 145 mEq/L | EXTERNAL | | | | | | LAB | | + + + + + + | Potassium, | 4.0 | 3.5 - 5.0 mEq/L | EXTERNAL | | | POC | | | LAB | | + + + + + + | Ionized | 1.19 | 1.12 - 1.32 | EXTERNAL | | | Calcium, | | mmol/L | LAB | | | POC | | | | | + + + + + + | Glucose, | 110 (H) | 65 - 99 mg/dL | EXTERNAL | | | POC | | | LAB | | + + + + + + | Hematocrit, | 40 | 40.0 - 50.0 % | EXTERNAL | | | POC | | | LAB | | + + + + + + | Hemoglobin, | 13.6 (L)Comment: Testing | 13.7 - 16.7 | EXTERNAL | | | POC | performed at [facility];888 | g/dL | LAB | | | | [address];[place] | | | | | | [address] | | | | + + + + + + + + | Specimen | + + | | + + + +---------+ + + | Performing | Address | City/State/Zipcode | Phone Number | | Organization | | | | + +---------+ + + | EXTERNAL LAB | | | | + +---------+ + + POC Glucose (05/16/2018 6:13 AM PDT) + + + + + + | Component | Value | Ref Range | Performed | Pathologist | | | | | At | Signature | + + + + + + | Glucose, | 115 (H)Comment: Testing | 65 - 99 mg/dL | EXTERNAL | | | Fingerstick | performed at [facility];[address] | | LAB | | | | [address];[place] | | | | | | [address] | | | | + + + + + + + + | Specimen | + + | | + + + +---------+ + + | Performing | Address | City/State/Zipcode | Phone Number | | Organization | | | | + +---------+ + + | EXTERNAL LAB | | | | + +---------+ + + External Lab: CBC (05/16/2018 3:27 AM PDT) + + + + + + | Component | Value | Ref Range | Performed | Pathologist | | | | | At | Signature | + + + + + + | WBC | 7.00 | 3.80 - 11.00 | EXTERNAL | | | | | K/uL | LAB | | + + + + + + | Non- | 6.10 (H) | 4.20 - 5.70 | EXTERNAL | | | Red Blood | | M/uL | LAB | | | Cells | | | | | | Counted | | | | | + + + + + + | Hemoglobin | 13.6 | 13.2 - 17.0 | EXTERNAL | | | | | g/dL | LAB | | + + + + + + | Hematocrit, | 41.9 | 39.0 - 50.0 % | EXTERNAL | | | POC | | | LAB | | + + + + + + | MCV | 68.6 (L) | 80.0 - 100.0 fl | EXTERNAL | | | | | | LAB | | + + + + + + | MCH | 22.2 (L) | 27.0 - 34.0 pg | EXTERNAL | | | | | | LAB | | + + + + + + | MCHC | 32.4 | 32.0 - 35.5 | EXTERNAL | | | | | g/dL | LAB | | + + + + + + | RDW-CV | 53.8 (H) | 37 - 53 fl | EXTERNAL | | | | | | LAB | | + + + + + + | Platelet | 167 | 150 - 400 K/uL | EXTERNAL | | | Count | | | LAB | | | Plasma | | | | | + + + + + + | MPV | 8.7 | fl | EXTERNAL | | | | | | LAB | | + + + + + + | Differentia | AUTOMATED | | EXTERNAL | | | l Type | | | LAB | | + + + + + + | % Segmented | 58.33 | % | EXTERNAL | | | | | | LAB | | | Neutrophils | | | | | + + + + + + | % | 32.17 | % | EXTERNAL | | | Lymphocytes | | | LAB | | + + + + + + | % Monocytes | 5.22 | % | EXTERNAL | | | | | | LAB | | + + + + + + | % | 3.33 | % | EXTERNAL | | | Eosinophils | | | LAB | | + + + + + + | % Basophils | 0.95 | % | EXTERNAL | | | | | | LAB | | + + + + + + | Absolute | 4.09 | 1.90 - 7.40 | EXTERNAL | | | Segmented | | K/uL | LAB | | | Neutrophils | | | | | + + + + + + | Absolute | 2.25 | 1.00 - 3.90 | EXTERNAL | | | Lymphocytes | | K/uL | LAB | | + + + + + + | Absolute | 0.37 | 0.00 - 0.80 | EXTERNAL | | | Monocytes | | K/uL | LAB | | + + + + + + | Absolute | 0.23 | 0.00 - 0.50 | EXTERNAL | | | Eosinophils | | K/uL | LAB | | + + + + + + | Absolute | 0.07 | 0.00 - 0.10 | EXTERNAL | | | Basophils | | K/uL | LAB | | + + + + + + | RBC | 2+ | | EXTERNAL | | | Morphology | Comment: | | LAB | | | | ANISO | | | | | | 2+ | | | | | | HYPO | | | | | | 2+ | | | | | | MICRO | | | | | | NORMAL PLT MORPH | | | | | | | | | | + + + + + + | Platelet | ADEQUATEComment: Testing | | EXTERNAL | | | Estimate | performed at [facility], [address] | | LAB | | | | [address], | | | | | | [place] [address] | | | | + + + + + + + + | Specimen | + + | Blood specimen | | (specimen) | + + + +---------+ + + | Performing | Address | City/State/Zipcode | Phone Number | | Organization | | | | + +---------+ + + | EXTERNAL LAB | | | | + +---------+ + + Phosphorus (05/16/2018 3:27 AM PDT) + + + + + + | Component | Value | Ref Range | Performed | Pathologist | | | | | At | Signature | + + + + + + | PHOSPHORUS | 3.8Comment: SPECIMEN | 2.3 - 4.8 mg/dL | EXTERNAL | | | | SLIGHTLY | | LAB | | | | HEMOLYZEDTesting | | | | | | performed at [facility], [address] | | | | | | [address], | | | | | | [place] [address] | | | | + + + + + + + + | Specimen | + + | Blood specimen | | (specimen) | + + + +---------+ + + | Performing | Address | City/State/Zipcode | Phone Number | | Organization | | | | + +---------+ + + | EXTERNAL LAB | | | | + +---------+ + + Magnesium (05/16/2018 3:27 AM PDT) + + + + + + | Component | Value | Ref Range | Performed | Pathologist | | | | | At | Signature | + + + + + + | Magnesium | 1.8Comment: SPECIMEN | 1.7 - 2.4 mg/dL | EXTERNAL | | | | SLIGHTLY | | LAB | | | | HEMOLYZEDTesting | | | | | | performed at [facility], [address] | | | | | | [address], | | | | | | [place] [address] | | | | + + + + + + + + | Specimen | + + | Blood specimen | | (specimen) | + + + +---------+ + + | Performing | Address | City/State/Zipcode | Phone Number | | Organization | | | | + +---------+ + + | EXTERNAL LAB | | | | + +---------+ + + Basic Metabolic Panel (05/16/2018 3:27 AM PDT) + + + + + + | Component | Value | Ref Range | Performed | Pathologist | | | | | At | Signature | + + + + + + | Na | 139 | 135 - 145 | EXTERNAL | | | | | mmol/L | LAB | | + + + + + + | K | 4.4Comment: SPECIMEN | 3.5 - 4.9 | EXTERNAL | | | | SLIGHTLY HEMOLYZED | mmol/L | LAB | | + + + + + + | Cl | 105 | 99 - 109 mmol/L | EXTERNAL | | | | | | LAB | | + + + + + + | CO2 | 25 | 23 - 32 mmol/L | EXTERNAL | | | | | | LAB | | + + + + + + | Anion Gap | 13 | 5 - 20 mmol/L | EXTERNAL | | | | | | LAB | | + + + + + + | Glucose, | 107 (H)Comment: SPECIMEN | 65 - 99 mg/dL | EXTERNAL | | | Fasting | SLIGHTLY HEMOLYZED | | LAB | | + + + + + + | BUN | 11 | 8 - 25 mg/dL | EXTERNAL | | | | | | LAB | | + + + + + + | Creatinine | 0.6 (L)Comment: SPECIMEN | 0.70 - 1.30 | EXTERNAL | | | | SLIGHTLY HEMOLYZED | mg/dL | LAB | | + + + + + + | BUN/Creatin | 18 | | EXTERNAL | | | ine Ratio | | | LAB | | + + + + + + | Calcium | 8.0 (L) | 8.5 - 10.5 | EXTERNAL | | | | | mg/dL | LAB | | + + + + + + | Estimated | >60Comment: GFR <60: | mL/min/1.73m2 | EXTERNAL | | | GFR | CHRONIC KIDNEY DISEASE, | | LAB | | | | IF FOUND OVER A 3 MONTH | | | | | | PERIOD.GFR <15: KIDNEY | | | | | | FAILURE.FOR | | | | | | AMERICANS, MULTIPLY THE | | | | | | CALCULATED GFR BY | | | | | | 1.210.This eGFR is | | | | | | calculated using the | | | | | | MDRD IDMS traceable | | | | | | equation.Testing | | | | | | performed at [facility], [address] | | | | | | [address], | | | | | | [place] [address] | | | | + + + + + + + + | Specimen | + + | Blood specimen | | (specimen) | + + + +---------+ + + | Performing | Address | City/State/Zipcode | Phone Number | | Organization | | | | + +---------+ + + | EXTERNAL LAB | | | | + +---------+ + + POC Glucose (05/15/2018 9:12 PM PDT) + + + + + + | Component | Value | Ref Range | Performed | Pathologist | | | | | At | Signature | + + + + + + | Glucose, | 176 (H)Comment: Testing | 65 - 99 mg/dL | EXTERNAL | | | Fingerstick | performed at [facility];[address] | | LAB | | | | [address];[place], [place] | | | | | | [address] | | | | + + + + + + + + | Specimen | + + | | + + + +---------+ + + | Performing | Address | City/State/Zipcode | Phone Number | | Organization | | | | + +---------+ + + | EXTERNAL LAB | | | | + +---------+ + + MRSA NAAT (05/15/2018 7:18 PM PDT) + + | Specimen | + + | | + + + + + | Narrative | Performed At | + + + | SOURCE NARES(NOSE) MRSA | EXTERNAL LAB | | PCR NEGATIVE Testing | | | performed at [facility];[address] [place] [address];[place] [address] | | + + + + +---------+ + + | Performing | Address | City/State/Zipcode | Phone Number | | Organization | | | | + +---------+ + + | EXTERNAL LAB | | | | + +---------+ + + POC Glucose (05/15/2018 4:20 PM PDT) + + + + + + | Component | Value | Ref Range | Performed | Pathologist | | | | | At | Signature | + + + + + + | Glucose, | 185 (H)Comment: Testing | 65 - 99 mg/dL | EXTERNAL | | | Fingerstick | performed at [facility];[address] | | LAB | | | | [address];[place] | | | | | | [address] | | | | + + + + + + + + | Specimen | + + | | + + + +---------+ + + | Performing | Address | City/State/Zipcode | Phone Number | | Organization | | | | + +---------+ + + | EXTERNAL LAB | | | | + +---------+ + + POC Glucose (05/15/2018 12:11 PM PDT) + + + + + + | Component | Value | Ref Range | Performed | Pathologist | | | | | At | Signature | + + + + + + | Glucose, | 185 (H)Comment: Testing | 65 - 99 mg/dL | EXTERNAL | | | Fingerstick | performed at [facility];[address] | | LAB | | | | [address];[place] | | | | | | [address] | | | | + + + + + + + + | Specimen | + + | | + + + +---------+ + + | Performing | Address | City/State/Zipcode | Phone Number | | Organization | | | | + +---------+ + + | EXTERNAL LAB | | | | + +---------+ + + POC Glucose (05/15/2018 5:37 AM PDT) + + + + + + | Component | Value | Ref Range | Performed | Pathologist | | | | | At | Signature | + + + + + + | Glucose, | 95Comment: Testing | 65 - 99 mg/dL | EXTERNAL | | | Fingerstick | performed at [facility];[address] | | LAB | | | | [address];[place], [place] | | | | | | [address] | | | | + + + + + + + + | Specimen | + + | | + + + +---------+ + + | Performing | Address | City/State/Zipcode | Phone Number | | Organization | | | | + +---------+ + + | EXTERNAL LAB | | | | + +---------+ + + External Lab: CBC (05/15/2018 3:51 AM PDT) + + + + + + | Component | Value | Ref Range | Performed | Pathologist | | | | | At | Signature | + + + + + + | WBC | 6.21 | 3.80 - 11.00 | EXTERNAL | | | | | K/uL | LAB | | + + + + + + | Non- | 5.86 (H) | 4.20 - 5.70 | EXTERNAL | | | Red Blood | | M/uL | LAB | | | Cells | | | | | | Counted | | | | | + + + + + + | Hemoglobin | 13.1 (L) | 13.2 - 17.0 | EXTERNAL | | | | | g/dL | LAB | | + + + + + + | Hematocrit, | 40.0 | 39.0 - 50.0 % | EXTERNAL | | | POC | | | LAB | | + + + + + + | MCV | 68.3 (L) | 80.0 - 100.0 fl | EXTERNAL | | | | | | LAB | | + + + + + + | MCH | 22.4 (L) | 27.0 - 34.0 pg | EXTERNAL | | | | | | LAB | | + + + + + + | MCHC | 32.8 | 32.0 - 35.5 | EXTERNAL | | | | | g/dL | LAB | | + + + + + + | RDW-CV | 51.6 | 37 - 53 fl | EXTERNAL | | | | | | LAB | | + + + + + + | Platelet | 167 | 150 - 400 K/uL | EXTERNAL | | | Count | | | LAB | | | Plasma | | | | | + + + + + + | MPV | 8.7 | fl | EXTERNAL | | | | | | LAB | | + + + + + + | Differentia | AUTOMATED | | EXTERNAL | | | l Type | | | LAB | | + + + + + + | % Segmented | 60.10 | % | EXTERNAL | | | | | | LAB | | | Neutrophils | | | | | + + + + + + | % | 30.15 | % | EXTERNAL | | | Lymphocytes | | | LAB | | + + + + + + | % Monocytes | 5.50 | % | EXTERNAL | | | | | | LAB | | + + + + + + | % | 3.16 | % | EXTERNAL | | | Eosinophils | | | LAB | | + + + + + + | % Basophils | 1.09 | % | EXTERNAL | | | | | | LAB | | + + + + + + | Absolute | 3.73 | 1.90 - 7.40 | EXTERNAL | | | Segmented | | K/uL | LAB | | | Neutrophils | | | | | + + + + + + | Absolute | 1.87 | 1.00 - 3.90 | EXTERNAL | | | Lymphocytes | | K/uL | LAB | | + + + + + + | Absolute | 0.34 | 0.00 - 0.80 | EXTERNAL | | | Monocytes | | K/uL | LAB | | + + + + + + | Absolute | 0.20 | 0.00 - 0.50 | EXTERNAL | | | Eosinophils | | K/uL | LAB | | + + + + + + | Absolute | 0.07 | 0.00 - 0.10 | EXTERNAL | | | Basophils | | K/uL | LAB | | + + + + + + | RBC | 2+ | | EXTERNAL | | | Morphology | Comment: | | LAB | | | | ANISO | | | | | | 2+ | | | | | | HYPO | | | | | | 2+ | | | | | | MICRO | | | | | | NORMAL PLT MORPH | | | | | | | | | | + + + + + + | Platelet | ADEQUATEComment: Testing | | EXTERNAL | | | Estimate | performed at [facility], [address] | | LAB | | | | [address], | | | | | | [place] [address] | | | | + + + + + + + + | Specimen | + + | Blood specimen | | (specimen) | + + + +---------+ + + | Performing | Address | City/State/Zipcode | Phone Number | | Organization | | | | + +---------+ + + | EXTERNAL LAB | | | | + +---------+ + + Phosphorus (05/15/2018 3:51 AM PDT) + + + + + + | Component | Value | Ref Range | Performed | Pathologist | | | | | At | Signature | + + + + + + | PHOSPHORUS | 4.5Comment: Testing | 2.3 - 4.8 mg/dL | EXTERNAL | | | | performed at [facility], [address] | | LAB | | | | [address], | | | | | | [place] [address] | | | | + + + + + + + + | Specimen | + + | Blood specimen | | (specimen) | + + + +---------+ + + | Performing | Address | City/State/Zipcode | Phone Number | | Organization | | | | + +---------+ + + | EXTERNAL LAB | | | | + +---------+ + + Magnesium (05/15/2018 3:51 AM PDT) + + + + + + | Component | Value | Ref Range | Performed | Pathologist | | | | | At | Signature | + + + + + + | Magnesium | 1.9Comment: Testing | 1.7 - 2.4 mg/dL | EXTERNAL | | | | performed at [facility], [address] | | LAB | | | | [address], | | | | | | [place] [address] | | | | + + + + + + + + | Specimen | + + | Blood specimen | | (specimen) | + + + +---------+ + + | Performing | Address | City/State/Zipcode | Phone Number | | Organization | | | | + +---------+ + + | EXTERNAL LAB | | | | + +---------+ + + Basic Metabolic Panel (05/15/2018 3:51 AM PDT) + + + + + + | Component | Value | Ref Range | Performed | Pathologist | | | | | At | Signature | + + + + + + | Na | 139 | 135 - 145 | EXTERNAL | | | | | mmol/L | LAB | | + + + + + + | K | 4.2 | 3.5 - 4.9 | EXTERNAL | | | | | mmol/L | LAB | | + + + + + + | Cl | 104 | 99 - 109 mmol/L | EXTERNAL | | | | | | LAB | | + + + + + + | CO2 | 26 | 23 - 32 mmol/L | EXTERNAL | | | | | | LAB | | + + + + + + | Anion Gap | 13 | 5 - 20 mmol/L | EXTERNAL | | | | | | LAB | | + + + + + + | Glucose, | 99 | 65 - 99 mg/dL | EXTERNAL | | | Fasting | | | LAB | | + + + + + + | BUN | 8 | 8 - 25 mg/dL | EXTERNAL | | | | | | LAB | | + + + + + + | Creatinine | 0.6 (L) | 0.70 - 1.30 | EXTERNAL | | | | | mg/dL | LAB | | + + + + + + | BUN/Creatin | 13 | | EXTERNAL | | | ine Ratio | | | LAB | | + + + + + + | Calcium | 8.2 (L) | 8.5 - 10.5 | EXTERNAL | | | | | mg/dL | LAB | | + + + + + + | Estimated | >60Comment: GFR <60: | mL/min/1.73m2 | EXTERNAL | | | GFR | CHRONIC KIDNEY DISEASE, | | LAB | | | | IF FOUND OVER A 3 MONTH | | | | | | PERIOD.GFR <15: KIDNEY | | | | | | FAILURE.FOR | | | | | | AMERICANS, MULTIPLY THE | | | | | | CALCULATED GFR BY | | | | | | 1.210.This eGFR is | | | | | | calculated using the | | | | | | MDRD IDLA traceable | | | | | | equation.Testing | | | | | | performed at [facility], [address] | | | | | | [facility], | | | | | | [place], [place] [address] | | | | + + + + + + + + | Specimen | + + | Blood specimen | | (specimen) | + + + +---------+ + + | Performing | Address | City/State/Zipcode | Phone Number | | Organization | | | | + +---------+ + + | EXTERNAL LAB | | | | + +---------+ + + POC Glucose (05/14/2018 9:39 PM PDT) + + + + + + | Component | Value | Ref Range | Performed | Pathologist | | | | | At | Signature | + + + + + + | Glucose, | 133 (H)Comment: Testing | 65 - 99 mg/dL | EXTERNAL | | | Fingerstick | performed at [facility];[address] | | LAB | | | | [address];[place] | | | | | | [address] | | | | + + + + + + + + | Specimen | + + | | + + + +---------+ + + | Performing | Address | City/State/Zipcode | Phone Number | | Organization | | | | + +---------+ + + | EXTERNAL LAB | | | | + +---------+ + + POC Glucose (05/14/2018 5:09 PM PDT) + + + + + + | Component | Value | Ref Range | Performed | Pathologist | | | | | At | Signature | + + + + + + | Glucose, | 164 (H)Comment: Testing | 65 - 99 mg/dL | EXTERNAL | | | Fingerstick | performed at [facility];[address] | | LAB | | | | [address];[place] | | | | | | [address] | | | | + + + + + + + + | Specimen | + + | | + + + +---------+ + + | Performing | Address | City/State/Zipcode | Phone Number | | Organization | | | | + +---------+ + + | EXTERNAL LAB | | | | + +---------+ + + POC Glucose (05/14/2018 11:10 AM PDT) + + + + + + | Component | Value | Ref Range | Performed | Pathologist | | | | | At | Signature | + + + + + + | Glucose, | 119 (H)Comment: Testing | 65 - 99 mg/dL | EXTERNAL | | | Fingerstick | performed at [facility];[address] | | LAB | | | | [address];[place], [place] | | | | | | [address] | | | | + + + + + + + + | Specimen | + + | | + + + +---------+ + + | Performing | Address | City/State/Zipcode | Phone Number | | Organization | | | | + +---------+ + + | EXTERNAL LAB | | | | + +---------+ + + CV CARDIAC PROCEDURE (05/14/2018 10:47 AM PDT) + + | Specimen | + + | | + + + + + | Narrative | Performed At | + + + | [facility] Service:Cardiology/ICA Procedure | | | note José Miguel Floyd 1960 [id number] Oral And Maxillofacial Surgery: | | | Jeremiah Bradford Date:05/14/2018 PROCEDURE: Left heart | | | catheterization with selective coronary angiography. CLINICAL | | | HISTORY: This is a 58 y.o., male, who presented with preop for AVR. | | | The risks, benefits, and details of the procedure were explained | | | to the patient. The patient verbalized understanding and wanted to | | | proceed. Informed written consent was obtained. Lab Results | | | Component Value Date NA 138 05/14/2018 K 3.9 05/14/2018 | | | CL 104 05/14/2018 CO2 25 05/14/2018 BUN 7 (L) | | | 05/14/2018 CREATININE 0.5 (L) 05/14/2018 Lab Results | | | Component Value Date TROPONINI <0.020 05/11/2018 Lab | | | Results Component Value Date WBC 6.06 05/14/2018 HGB 13.6 | | | 05/14/2018 HCT 41.5 05/14/2018 MCV 67.9 (L) 05/14/2018 | | | PLT 176 05/14/2018 PROCEDURE TECHNIQUE: The procedure, | | | details, alternatives, complications were explained for the patient. | | | Informed consent was obtained. The patient was brought to the room and | | | prepped in a sterile fashion. Timeout was performed. Conscious | | | sedation administered by independent observer. The right wrist | | | anesthetized with 1% lidocaine. Right radial artery cannulized with a | | | 6-Chilean Slender sheath. Verapamil 2.5 mg, nitroglycerin 200 mcg, and | | | 5000 international units heparin given through the sheath. ? Over a | | | 260 exchange wire a 5-Chilean JL4 diagnostic catheter advanced to the | | | ascending aorta, selectively engaging the left main. Contrast was | | | injected. Selective angiogram for the left main, LAD, left circumflex | | | artery performed in different views. Over a guidewire it was | | | exchanged for a 5-Chilean JR4 diagnostic catheter that was advanced and | | | selectively engaged the RCA. Contrast was injected. Selective | | | angiogram for the RCA was performed in different views. The catheter | | | is removed over a guidewire. The sheath was removed. TR band was | | | applied with good hemostasis. The patient was transferred to the | | | recovery area in stable condition. ESTIMATED BLOOD LOSS: less than | | | 20 cc. CONTRAST: Total of 40 cc. COMPLICATIONS: None. | | | HEMODYNAMICS: Aortic pressure was 166/82. ANGIOGRAM/CORONARY | | | ARTERIOGRAM: Dominance- Right Left Main- Patent LAD- | | | luminal irregularities Circ- luminal irregularities, 40% distal | | | circumflex disease, 40-50% OM1 disease noted RCA- Dominant, | | | luminal irregularities noted. LV: Normal LV systolic function by | | | echo. Recommendation: Non obstructive CAD AVR for aortic | | | valve large vegetation by Dr. Vergara Medical management for CAD | | | Jeremiah Bradford 05/14/2018 10:50 AM Electronically | | | signed by Jeremiah Bradford MD on 05/14/2018 10:54 AM | | + + + + + | Procedure Note | + + | Hansel, Rad Conversion - 05/10/2019 3:59 PM [facility] | | CenterService:Cardiology/ICAProcedure note José Miguel [id number] | | Oral And Maxillofacial Surgery: Jeremiah Basste:05/14/2018 PROCEDURE: Left heart catheterization with | | selective coronary angiography. CLINICAL HISTORY: This is a 58 y.o., male, who | | presented with preop for AVR. The risks, benefits, and details of the procedure were | | explained to the patient. The patient verbalized understanding and wanted to proceed. | | Informed written consent was obtained. Lab ResultsComponent Value DateNA 138 | | 05/14/2018K 3.9 05/14/2018CL 104 05/14/2018CO2 25 05/14/2018BUN 7 (L) | | 05/14/2018CREATININE 0.5 (L) 05/14/2018 Lab ResultsComponent Value DateTROPONINI | | <0.020 05/11/2018 Lab ResultsComponent Value DateWBC 6.06 05/14/2018HGB 13.6 | | 05/14/2018HCT 41.5 05/14/2018MCV 67.9 (L) 05/14/2018PLT 176 05/14/2018 PROCEDURE | | TECHNIQUE:The procedure, details, alternatives, complications were explained for the | | patient. Informed consent was obtained. The patient was brought to the room and prepped | | in a sterile fashion. Timeout was performed. Conscious sedation administered by | | independent observer. The right wrist anesthetized with 1% lidocaine. Right radial | | artery cannulized with a 6-Chilean Slender sheath. Verapamil 2.5 mg, nitroglycerin 200 | | mcg, and 5000 international units heparin given through the sheath. ?Over a 260 exchange | | wire a 5-Chilean JL4 diagnostic catheter advanced to the ascending aorta, selectively | | engaging the left main. Contrast was injected. Selective angiogram for the left main, | | LAD, left circumflex artery performed in different views. Over a guidewire it was | | exchanged for a 5-Chilean JR4 diagnostic catheter that was advanced and selectively | | engaged the RCA. Contrast was injected. Selective angiogram for the RCA was performed in | | different views. The catheter is removed over a guidewire. The sheath was removed. TR | | band was applied with good hemostasis. The patient was transferred to the recovery area | | in stable condition. ESTIMATED BLOOD LOSS: less than 20 cc. CONTRAST: Total of 40 cc. | | COMPLICATIONS: None. HEMODYNAMICS: Aortic pressure was 166/82. ANGIOGRAM/CORONARY | | ARTERIOGRAM: Dominance- Right Left Main- Patent LAD- luminal irregularities Circ- | | luminal irregularities, 40% distal circumflex disease, 40-50% OM1 disease noted RCA- | | Dominant, luminal irregularities noted. LV:Normal LV systolic function by echo. | | Recommendation:Non obstructive CADAVR for aortic valve large vegetation by . | | CorderoMedical management for CAD Jeremiah Bradford05/14/201810:50 AM Electronically | | signed by Jeremiah Bradford MD on 05/14/2018 10:54 AM | | | |Lab Results | |Component Value Date | |WBC 6.06 05/14/2018 | |HGB 13.6 05/14/2018 | |HCT 41.5 05/14/2018 | |MCV 67.9 (L) 05/14/2018 | |PLT 176 05/14/2018 | | | | | |PROCEDURE TECHNIQUE: | |The procedure, details, alternatives, complications were explained for the patient. Informe d consent was obtained. The patient was brought to the room and prepped in a sterile fashion . Timeout was performed. Conscious | |sedation administered by independent | | observer. The right wrist anesthetized with 1% lidocaine. Right radial artery cannulized w ith a 6-[place] Slender sheath. Verapamil 2.5 mg, nitroglycerin 200 mcg, and 5000 internation al units heparin given through the sheath. ? | |Over a 260 exchange wire a 5-[place] JL4 diagnostic catheter advanced to the ascending aorta , selectively engaging the left main. Contrast was injected. Selective angiogram for the lef t main, LAD, left circumflex | |artery performed in different views. Over | |a guidewire it was exchanged for a 5-[place] JR4 diagnostic catheter that was advanced and s electively engaged the RCA. Contrast was injected. Selective angiogram for the RCA was perfo rmed in different views. The | |catheter is removed over a guidewire. The | |sheath was removed. TR band was applied with good hemostasis. The patient was transferred t o the recovery area in stable condition. | | | |ESTIMATED BLOOD LOSS: less than 20 cc. | | | |CONTRAST: Total of 40 cc. | | | |COMPLICATIONS: None. | | | |HEMODYNAMICS: Aortic pressure was 166/82. | | | | | |ANGIOGRAM/CORONARY ARTERIOGRAM: | | | |Dominance- Right | | | |Left Main- Patent | | | |LAD- luminal irregularities | | | |Circ- luminal irregularities, 40% distal circumflex disease, 40-50% OM1 disease noted | | | |RCA- Dominant, luminal irregularities noted. | | | |LV: | |Normal LV systolic function by echo. | | | | | |Recommendation: | |Non obstructive CAD | |AVR for aortic valve large vegetation by Dr. Vergara | |Medical management for CAD | | | | | | | |Jeremiah Bradford | |05/14/2018 | |10:50 AM | | | | | + + POC Glucose (05/14/2018 5:29 AM PDT) + + + + + + | Component | Value | Ref Range | Performed | Pathologist | | | | | At | Signature | + + + + + + | Glucose, | 112 (H)Comment: Testing | 65 - 99 mg/dL | EXTERNAL | | | Fingerstick | performed at [facility];[address] | | [address] | | | [address];[place], [place] | | | | | | [address] | | | | + + + + + + + + | Specimen | + + | | + + + +---------+ + + | Performing | Address | City/State/Zipcode | Phone Number | | Organization | | | | + +---------+ + + | EXTERNAL LAB | | | | + +---------+ + + External Lab: CBC (05/14/2018 4:24 AM PDT) + + +---- + + + | Component | Value | Ref Range | Performed | Pathologist | | | | | At | Signature | + + +---- + + + | WBC | 6.06 | 3.8 0 - 11.00 | EXTERNAL | | | | | K/u L | LAB | | + + +---- + + + | Non- | 6.12 (H) | 4.2 0 - 5.70 | EXTERNAL | | | Red Blood | | M/u L | LAB | | | Cells | | | | | | Counted | | | | | + + +---- + + + | Hemoglobin | 13.6 | 13. 2 - 17.0 | EXTERNAL | | | | | g/d L | LAB | | + + +---- + + + | Hematocrit, | 41.5 | 39. 0 - 50.0 % | EXTERNAL | | | POC | | | LAB | | + + +---- + + + | MCV | 67.9 (L) | 80. 0 - 100.0 fl | EXTERNAL | | | | | | LAB | | + + +---- + + + | MCH | 22.2 (L) | 27. 0 - 34.0 pg | EXTERNAL | | | | | | LAB | | + + +---- + + + | MCHC | 32.6 | 32. 0 - 35.5 | EXTERNAL | | | | | g/d L | LAB | | + + +---- + + + | RDW-CV | 52.1 | 37 - 53 fl | EXTERNAL | | | | | | LAB | | + + +---- + + + | Platelet | 176 | 150 - 400 K/uL | EXTERNAL | | | Count | | | LAB | | | Plasma | | | | | + + +---- + + + | MPV | 8.6 | fl | EXTERNAL | | | | | | LAB | | + + +---- + + + | Differentia | AUTOMATED | | EXTERNAL | | | l Type | | | LAB | | + + +---- + + + | % Segmented | 59.92 | % | EXTERNAL | | | | | | LAB | | | Neutrophils | | | | | + + +---- + + + | % | 28.98 | % | EXTERNAL | | | Lymphocytes | | | LAB | | + + +---- + + + | % Monocytes | 6.65 | % | EXTERNAL | | | | | | LAB | | + + +---- + + + | % | 3.41 | % | EXTERNAL | | | Eosinophils | | | LAB | | + + +---- + + + | % Basophils | 1.04 | % | EXTERNAL | | | | | | LAB | | + + +---- + + + | Absolute | 3.63 | 1.9 0 - 7.40 | EXTERNAL | | | Segmented | | K/u L | LAB | | | Neutrophils | | | | | + + +---- + + + | Absolute | 1.76 | 1.0 0 - 3.90 | EXTERNAL | | | Lymphocytes | | K/u L | LAB | | + + +---- + + + | Absolute | 0.40 | 0.0 0 - 0.80 | EXTERNAL | | | Monocytes | | K/u L | LAB | | + + +---- + + + | Absolute | 0.21 | 0.0 0 - 0.50 | EXTERNAL | | | Eosinophils | | K/u L | LAB | | + + +---- + + + | Absolute | 0.06 | 0.0 0 - 0.10 | EXTERNAL | | | Basophils | | K/u L | LAB | | + + +---- + + + | RBC | 2+Comment: | | EXTERNAL | | | Morphology | MICRO2+HYPO1+ANISONORMAL | | LAB | | | | PLT MORPHTesting | | | | | | performed at [facility], [address] | | | | | [facility], | | | | | | [place] [address] | | | | | |ANISO | | | | | |NORMAL PLT MORPH | | | | | |Testing performed at [facility], [address] [facility], [place] [address] | | | | | | | | | | + + +---- + + + + + | Specimen | + + | Blood specimen | | (specimen) | + + + +---------+ + + | Performing | Address | City/State/Zipcode | Phone Number | | Organization | | | | + +---------+ + + | EXTERNAL LAB | | | | + +---------+ + + Phosphorus (05/14/2018 4:24 AM PDT) + + + + + + | Component | Value | Ref Range | Performed | Pathologist | | | | | At | Signature | + + + + + + | PHOSPHORUS | 4.4Comment: Testing | 2.3 - 4.8 mg/dL | EXTERNAL | | | | performed at [facility], [address] | | LAB | | | | [facility], | | | | | | [place] [address] | | | | + + + + + + + + | Specimen | + + | Blood specimen | | (specimen) | + + + +---------+ + + | Performing | Address | City/State/Zipcode | Phone Number | | Organization | | | | + +---------+ + + | EXTERNAL LAB | | | | + +---------+ + + Magnesium (05/14/2018 4:24 AM PDT) + + + + + + | Component | Value | Ref Range | Performed | Pathologist | | | | | At | Signature | + + + + + + | Magnesium | 1.8Comment: Testing | 1.7 - 2.4 mg/dL | EXTERNAL | | | | performed at [facility], [address] | | LAB | | | | [address], | | | | | | [place] [address] | | | | + + + + + + + + | Specimen | + + | Blood specimen | | (specimen) | + + + +---------+ + + | Performing | Address | City/State/Zipcode | Phone Number | | Organization | | | | + +---------+ + + | EXTERNAL LAB | | | | + +---------+ + + Basic Metabolic Panel (05/14/2018 4:24 AM PDT) + + + + + + | Component | Value | Ref Range | Performed | Pathologist | | | | | At | Signature | + + + + + + | Na | 138 | 135 - 145 | EXTERNAL | | | | | mmol/L | LAB | | + + + + + + | K | 3.9 | 3.5 - 4.9 | EXTERNAL | | | | | mmol/L | LAB | | + + + + + + | Cl | 104 | 99 - 109 mmol/L | EXTERNAL | | | | | | LAB | | + + + + + + | CO2 | 25 | 23 - 32 mmol/L | EXTERNAL | | | | | | LAB | | + + + + + + | Anion Gap | 13 | 5 - 20 mmol/L | EXTERNAL | | | | | | LAB | | + + + + + + | Glucose, | 112 (H) | 65 - 99 mg/dL | EXTERNAL | | | Fasting | | | LAB | | + + + + + + | BUN | 7 (L) | 8 - 25 mg/dL | EXTERNAL | | | | | | LAB | | + + + + + + | Creatinine | 0.5 (L) | 0.70 - 1.30 | EXTERNAL | | | | | mg/dL | LAB | | + + + + + + | BUN/Creatin | 14 | | EXTERNAL | | | ine Ratio | | | LAB | | + + + + + + | Calcium | 8.2 (L) | 8.5 - 10.5 | EXTERNAL | | | | | mg/dL | LAB | | + + + + + + | Estimated | >60Comment: GFR <60: | mL/min/1.73m2 | EXTERNAL | | | GFR | CHRONIC KIDNEY DISEASE, | | LAB | | | | IF FOUND OVER A 3 MONTH | | | | | | PERIOD.GFR <15: KIDNEY | | | | | | FAILURE.FOR | | | | | | AMERICANS, MULTIPLY THE | | | | | | CALCULATED GFR BY | | | | | | 1.210.This eGFR is | | | | | | calculated using the | | | | | | MDRD IDLA traceable | | | | | | equation.Testing | | | | | | performed at [facility], [address] | | | | | [facility], | | | | | | [place] [address] | | | | + + + + + + + + | Specimen | + + | Blood specimen | | (specimen) | + + + +---------+ + + | Performing | Address | City/State/Zipcode | Phone Number | | Organization | | | | + +---------+ + + | EXTERNAL LAB | | | | + +---------+ + + POC Glucose (05/13/2018 9:01 PM PDT) + + + + + + | Component | Value | Ref Range | Performed | Pathologist | | | | | At | Signature | + + + + + + | Glucose, | 179 (H)Comment: Testing | 65 - 99 mg/dL | EXTERNAL | | | Fingerstick | performed at [facility];[address] | | LAB | | | | [address];[place] | | | | | | [address] | | | | + + + + + + + + | Specimen | + + | | + + + +---------+ + + | Performing | Address | City/State/Zipcode | Phone Number | | Organization | | | | + +---------+ + + | EXTERNAL LAB | | | | + +---------+ + + POC Glucose (05/13/2018 4:49 PM PDT) + + + + + + | Component | Value | Ref Range | Performed | Pathologist | | | | | At | Signature | + + + + + + | Glucose, | 154 (H)Comment: Testing | 65 - 99 mg/dL | EXTERNAL | | | Fingerstick | performed at [facility];[address] | | [address] | | | [address];[place], [place] | | | | | | [address] | | | | + + + + + + + + | Specimen | + + | | + + + +---------+ + + | Performing | Address | City/State/Zipcode | Phone Number | | Organization | | | | + +---------+ + + | EXTERNAL LAB | | | | + +---------+ + + POC Glucose (05/13/2018 11:30 AM PDT) + + + + + + | Component | Value | Ref Range | Performed | Pathologist | | | | | At | Signature | + + + + + + | Glucose, | 180 (H)Comment: Testing | 65 - 99 mg/dL | EXTERNAL | | | Fingerstick | performed at [facility];[address] | | LAB | | | | [address];[place], [place] | | | | | | [address] | | | | + + + + + + + + | Specimen | + + | | + + + +---------+ + + | Performing | Address | City/State/Zipcode | Phone Number | | Organization | | | | + +---------+ + + | EXTERNAL LAB | | | | + +---------+ + + POC Glucose (05/13/2018 5:34 AM PDT) + + + + + + | Component | Value | Ref Range | Performed | Pathologist | | | | | At | Signature | + + + + + + | Glucose, | 130 (H)Comment: Testing | 65 - 99 mg/dL | EXTERNAL | | | Fingerstick | performed at [facility];[address] | | LAB | | | | [address];[place], [place] | | | | | | [address] | | | | + + + + + + + + | Specimen | + + | | + + + +---------+ + + | Performing | Address | City/State/Zipcode | Phone Number | | Organization | | | | + +---------+ + + | EXTERNAL LAB | | | | + +---------+ + + External Lab: CBC (05/13/2018 4:05 AM PDT) + + + + + + | Component | Value | Ref Range | Performed | Pathologist | | | | | At | Signature | + + + + + + | WBC | 6.98 | 3.80 - 11.00 | EXTERNAL | | | | | K/uL | LAB | | + + + + + + | Non- | 6.24 (H) | 4.20 - 5.70 | EXTERNAL | | | Red Blood | | M/uL | LAB | | | Cells | | | | | | Counted | | | | | + + + + + + | Hemoglobin | 13.8 | 13.2 - 17.0 | EXTERNAL | | | | | g/dL | LAB | | + + + + + + | Hematocrit, | 42.4 | 39.0 - 50.0 % | EXTERNAL | | | POC | | | LAB | | + + + + + + | MCV | 67.9 (L) | 80.0 - 100.0 fl | EXTERNAL | | | | | | LAB | | + + + + + + | MCH | 22.1 (L) | 27.0 - 34.0 pg | EXTERNAL | | | | | | LAB | | + + + + + + | MCHC | 32.5 | 32.0 - 35.5 | EXTERNAL | | | | | g/dL | LAB | | + + + + + + | RDW-CV | 51.2 | 37 - 53 fl | EXTERNAL | | | | | | LAB | | + + + + + + | Platelet | 169 | 150 - 400 K/uL | EXTERNAL | | | Count | | | LAB | | | Plasma | | | | | + + + + + + | MPV | 8.6 | fl | EXTERNAL | | | | | | LAB | | + + + + + + | Differentia | AUTOMATED | | EXTERNAL | | | l Type | | | LAB | | + + + + + + | % Segmented | 64.03 | % | EXTERNAL | | | | | | LAB | | | Neutrophils | | | | | + + + + + + | % | 25.15 | % | EXTERNAL | | | Lymphocytes | | | LAB | | + + + + + + | % Monocytes | 7.33 | % | EXTERNAL | | | | | | LAB | | + + + + + + | % | 2.75 | % | EXTERNAL | | | Eosinophils | | | LAB | | + + + + + + | % Basophils | 0.74 | % | EXTERNAL | | | | | | LAB | | + + + + + + | Absolute | 4.47 | 1.90 - 7.40 | EXTERNAL | | | Segmented | | K/uL | LAB | | | Neutrophils | | | | | + + + + + + | Absolute | 1.76 | 1.00 - 3.90 | EXTERNAL | | | Lymphocytes | | K/uL | LAB | | + + + + + + | Absolute | 0.51 | 0.00 - 0.80 | EXTERNAL | | | Monocytes | | K/uL | LAB | | + + + + + + | Absolute | 0.19 | 0.00 - 0.50 | EXTERNAL | | | Eosinophils | | K/uL | LAB | | + + + + + + | Absolute | 0.05 | 0.00 - 0.10 | EXTERNAL | | | Basophils | | K/uL | LAB | | + + + + + + | RBC | 2+ | | EXTERNAL | | | Morphology | Comment: | | LAB | | | | ANISO | | | | | | 3+ | | | | | | HYPO | | | | | | 3+ | | | | | | MICRO | | | | | | NORMAL PLT MORPH | | | | | | | | | | + + + + + + | Platelet | ADEQUATEComment: Testing | | EXTERNAL | | | Estimate | performed at [facility], [address] | [address] | | | [address], | | | | | | [place] [address] | | | | + + + + + + + + | Specimen | + + | Blood specimen | | (specimen) | + + + +---------+ + + | Performing | Address | City/State/Zipcode | Phone Number | | Organization | | | | + +---------+ + + | EXTERNAL LAB | | | | + +---------+ + + Phosphorus (05/13/2018 4:05 AM PDT) + + + + + + | Component | Value | Ref Range | Performed | Pathologist | | | | | At | Signature | + + + + + + | PHOSPHORUS | 3.9Comment: Testing | 2.3 - 4.8 mg/dL | EXTERNAL | | | | performed at [facility], [address] | | LAB | | | | [address], | | | | | | [place] [address] | | | | + + + + + + + + | Specimen | + + | Blood specimen | | (specimen) | + + + +---------+ + + | Performing | Address | City/State/Zipcode | Phone Number | | Organization | | | | + +---------+ + + | EXTERNAL LAB | | | | + +---------+ + + Magnesium (05/13/2018 4:05 AM PDT) + + + + + + | Component | Value | Ref Range | Performed | Pathologist | | | | | At | Signature | + + + + + + | Magnesium | 1.8Comment: Testing | 1.7 - 2.4 mg/dL | EXTERNAL | | | | performed at [facility], [address] | | LAB | | | | [address], | | | | | | [place] [address] | | | | + + + + + + + + | Specimen | + + | Blood specimen | | (specimen) | + + + +---------+ + + | Performing | Address | City/State/Zipcode | Phone Number | | Organization | | | | + +---------+ + + | EXTERNAL LAB | | | | + +---------+ + + Basic Metabolic Panel (05/13/2018 4:05 AM PDT) + + + + + + | Component | Value | Ref Range | Performed | Pathologist | | | | | At | Signature | + + + + + + | Na | 139 | 135 - 145 | EXTERNAL | | | | | mmol/L | LAB | | + + + + + + | K | 4.0 | 3.5 - 4.9 | EXTERNAL | | | | | mmol/L | LAB | | + + + + + + | Cl | 104 | 99 - 109 mmol/L | EXTERNAL | | | | | | LAB | | + + + + + + | CO2 | 24 | 23 - 32 mmol/L | EXTERNAL | | | | | | LAB | | + + + + + + | Anion Gap | 15 | 5 - 20 mmol/L | EXTERNAL | | | | | | LAB | | + + + + + + | Glucose, | 120 (H) | 65 - 99 mg/dL | EXTERNAL | | | Fasting | | | LAB | | + + + + + + | BUN | 4 (L) | 8 - 25 mg/dL | EXTERNAL | | | | | | LAB | | + + + + + + | Creatinine | 0.5 (L) | 0.70 - 1.30 | EXTERNAL | | | | | mg/dL | LAB | | + + + + + + | BUN/Creatin | 8 | | EXTERNAL | | | ine Ratio | | | LAB | | + + + + + + | Calcium | 8.1 (L) | 8.5 - 10.5 | EXTERNAL | | | | | mg/dL | LAB | | + + + + + + | Estimated | >60Comment: GFR <60: | mL/min/1.73m2 | EXTERNAL | | | GFR | CHRONIC KIDNEY DISEASE, | | LAB | | | | IF FOUND OVER A 3 MONTH | | | | | | PERIOD.GFR <15: KIDNEY | | | | | | FAILURE.FOR | | | | | | AMERICANS, MULTIPLY THE | | | | | | CALCULATED GFR BY | | | | | | 1.210.This eGFR is | | | | | | calculated using the | | | | | | MDRD IDMS traceable | | | | | | equation.Testing | | | | | | performed at [facility], [address] | | | | | [facility], | | | | | | [place] [address] | | | | + + + + + + + + | Specimen | + + | Blood specimen | | (specimen) | + + + +---------+ + + | Performing | Address | City/State/Zipcode | Phone Number | | Organization | | | | + +---------+ + + | EXTERNAL LAB | | | | + +---------+ + + POC Glucose (05/12/2018 9:08 PM PDT) + + + + + + | Component | Value | Ref Range | Performed | Pathologist | | | | | At | Signature | + + + + + + | Glucose, | 151 (H)Comment: Testing | 65 - 99 mg/dL | EXTERNAL | | | Fingerstick | performed at [facility];[address] | | LAB | | | | [address];[place] | | | | | | [address] | | | | + + + + + + + + | Specimen | + + | | + + + +---------+ + + | Performing | Address | City/State/Zipcode | Phone Number | | Organization | | | | + +---------+ + + | EXTERNAL LAB | | | | + +---------+ + + POC Glucose (05/12/2018 4:40 PM PDT) + + + + + + | Component | Value | Ref Range | Performed | Pathologist | | | | | At | Signature | + + + + + + | Glucose, | 215 (H)Comment: Testing | 65 - 99 mg/dL | EXTERNAL | | | Fingerstick | performed at [facility];[address] | | LAB | | | | [address];[place] | | | | | | [address] | | | | + + + + + + + + | Specimen | + + | | + + + +---------+ + + | Performing | Address | City/State/Zipcode | Phone Number | | Organization | | | | + +---------+ + + | EXTERNAL LAB | | | | + +---------+ + + POC Glucose (05/12/2018 11:35 AM PDT) + + + + + + | Component | Value | Ref Range | Performed | Pathologist | | | | | At | Signature | + + + + + + | Glucose, | 111 (H)Comment: Testing | 65 - 99 mg/dL | EXTERNAL | | | Fingerstick | performed at [facility];[address] | | [address] | | | [address];[place], [place] | | | | | | [address] | | | | + + + + + + + + | Specimen | + + | | + + + +---------+ + + | Performing | Address | City/State/Zipcode | Phone Number | | Organization | | | | + +---------+ + + | EXTERNAL LAB | | | | + +---------+ + + ECHO Transesophageal (CLAUDIA) (05/12/2018 11:30 AM PDT) + + | Specimen | + + | | + + + + + | Impressions | Performed At | + + + | 1. Overall left ventricular systolic function is normal with, an EF | | | between 60 - 65 %. 2. There is fzrc-xo-yrxetzbd, eccentric aortic | | | regurgitation. 3. Mild aortic stenosis present. 4. 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 | | + + + + + + | Narrative | Performed At | + + + | Patient Name: JOSÉ MIGUEL FLOYD Date of : 1960 | | | Performing Physician: Luisito Fofana MD | | | | | | INDICATIONS murmur CONCLUSIONS 1. | | | Overall left ventricular systolic function is normal with, an EF | | | between 60 - 65 %. 2. There is ybat-mh-stylapda, eccentric aortic | | | regurgitation. 3. Mild aortic stenosis present. 4. 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 FINDINGS -------- Procedure: | | | Transesophageal echocardiogram with spectral and color flow Doppler | | | was performed. Procedure: CLAUDIA was done at the bedside in the fasting | | | state. Informed consent was obtained after benefits and risks of the | | | procedure were discussed with the patient including but not limited to | | | the potential for esophageal puncture and . The oropharynx | | | was anesthetized with 1% Hurricane spray. After conscious sedation, | | | the transesophageal probe was advanced and placed in the esophagus and | | | multiple projections of the cardiovascular structures were acquired | | | and recorded. This was followed by advancement of the probe into | | | the stomach for transgastric imaging. Finally, interrogation of the | | | descending aorta and arch was performed. The probe was removed. | | | The patient tolerated the procedure well. There were no immediate | | | complications. 2 D, pulsed and continuous wave form and color | | | images were interpreted in real time. Medications: 3 mg of Versed and | | | Medications: 150 mcg of Fentanyl was given intraveonously for | | | conscious sedation. Study quality: This was a technically adequate | | | study. Left Ventricle: The left ventricle size is normal. Left | | | Ventricle: Left Ventricle: Overall left ventricular systolic function | | | is normal with, an EF between 60 - 65 %. Left Atrium: The left | | | atrial size is normal. Left Atrium: Normal left atrial appendage | | | without evidence for thrombi. Right Ventricle: The right ventricle is | | | normal in size. Right Atrium: The right atrium was not well | | | visualized. Interatrial Septum: No shunt seen with color Doppler. | | | Aortic Valve: The aortic valve is trileaflet. Aortic Valve: There is | | | zlbi-rp-pfoougmz, eccentric aortic regurgitation. Aortic Valve: Mild | | | aortic stenosis present. Aortic Valve: Evidence of mobile vegetations | | | on the non-coronary (1.2x0.9 cm) and right coronary (1.0x0.9 cm) | | | cusps. Mitral Valve: The mitral valve is normal. Mitral Valve: There | | | is trace mitral regurgitation. Mitral Valve: No vegetation was seen. | | | Tricuspid Valve: The tricuspid valve appears structurally normal. | | | Tricuspid Valve: Mild tricuspid regurgitation present. Tricuspid | | | Valve: The right ventricular systolic pressure, as measured by | | | Doppler, is 37.08mmHg. Tricuspid Valve: No vegetation visualized. | | | Aorta: Ascending aorta, aortic arch and descending thoracic aorta are | | | of normal caliber with no significant atherosclerotic disease. | | | Pulmonary Veins: All pulmonary veins appear normal. Pulmonary Veins: | | | The flow patterns, measured by Doppler, appear normal. Pericardium: | | | There is no pericardial effusion. MEASUREMENTS | | | LVOT Diam: 2.19 cm HR: 217.5 BPM R-R: 275.86 ms HR: | | | 78.07 BPM AV maxP.84 mmHg AV meanP.54 mmHg AV Vmax: | | | 2.33 m/s AV Vmean: 1.52 m/s AV VTI: 46.97 cm MARTHA Vmax: | | | 1.38 cm2 MARTHA (VTI): 1.63 cm2 AVAI Vmax: 0.00 cm2/m2 AVAI | | | (VTI): 0.00 cm2/m2 LVCI Dopp: 2.67 l/minm2 LVCO Dopp: 5.69 | | | l/min HR: 74.26 BPM LVOT maxP.91 mmHg LVOT meanPG: | | | 1.29 mmHg LVSI Dopp: 36.00 ml/m2 LVSV Dopp: 76.68 ml LVOT | | | Vmax: 0.85 m/s LVOT Vmean: 0.50 m/s LVOT VTI: 20.29 cm | | | RAP: 5 mmHg RVSP: 37.07 mmHg TR maxP.07 mmHg TR Vmax: | | | 2.83 m/s Lithographic Photographer: FLORENCE Authenticated by: Luisito Fofana MD | | | Report Date/Time: 05-12-2018 18:55:18 | | + + + + + | Procedure Note | + + | Erik Hamm Conversion - 05/03/2019 11:07 AM PDT Patient Name: Paulina FLOYD of | | : 1960 Performing Physician: Luisito Fofana | | MD INDICATIONS m | | urmur CONCLUSIONS 1. Overall left ventricular systolic function is normal | | with, an EF between 60 - 65 %.2. There is kvdo-cx-qoydnacn, eccentric aortic | | regurgitation.3. Mild aortic stenosis present.4. Evidence of mobile vegetations on the | | non-coronary (1.2x0.9 cm) and right coronary (1.0x0.9 cm) cusps. | | FINDINGS--------Procedure: Transesophageal echocardiogram with spectral and color flow | | Doppler was performed.Procedure: CLAUDIA was done at the bedside in the fasting state. | | Informed consent was obtained after benefits and risks of the procedure were discussed | | with the patient including but not limited to the potential for esophageal puncture and | | . The oropharynx was anesthetized with 1% Hurricane spray. After conscious | | sedation, the transesophageal probe was advanced and placed in the esophagus and | | multiple projections of the cardiovascular structures were acquired and recorded. This | | was followed by advancement of the probe into the stomach for transgastric imaging. | | Finally, interrogation of the descending aorta and arch was performed. The probe was | | removed. The patient tolerated the procedure well. There were no immediate | | complications. 2 D, pulsed and continuous wave form and color images were interpreted | | in real time.Medications: 3 mg of Versed andMedications: 150 mcg of Fentanyl was given | | intraveonously for conscious sedation.Study quality: This was a technically adequate | | study.Left Ventricle: The left ventricle size is normal.Left Ventricle:Left Ventricle: | | Overall left ventricular systolic function is normal with, an EF between 60 - 65 %.Left | | Atrium: The left atrial size is normal.Left Atrium: Normal left atrial appendage without | | evidence for thrombi.Right Ventricle: The right ventricle is normal in size.Right | | Atrium: The right atrium was not well visualized.Interatrial Septum: No shunt seen with | | color Doppler.Aortic Valve: The aortic valve is trileaflet.Aortic Valve: There is | | axex-bq-txjdthgc, eccentric aortic regurgitation.Aortic Valve: Mild aortic stenosis | | present.Aortic Valve: Evidence of mobile vegetations on the non-coronary (1.2x0.9 cm) | | and right coronary (1.0x0.9 cm) cusps.Mitral Valve: The mitral valve is normal.Mitral | | Valve: There is trace mitral regurgitation.Mitral Valve: No vegetation was | | seen.Tricuspid Valve: The tricuspid valve appears structurally normal.Tricuspid Valve: | | Mild tricuspid regurgitation present.Tricuspid Valve: The right ventricular systolic | | pressure, as measured by Doppler, is 37.08mmHg.Tricuspid Valve: No vegetation | | visualized.Aorta: Ascending aorta, aortic arch and descending thoracic aorta are of | | normal caliber with no significant atherosclerotic disease.Pulmonary Veins: All | | pulmonary veins appear normal.Pulmonary Veins: The flow patterns, measured by Doppler, | | appear normal.Pericardium: There is no pericardial effusion. | | MEASUREMENTS LVOT Diam: 2.19 cmHR: 217.5 BPMR-R: 275.86 msHR: 78.07 | | BPMAV maxP.84 mmHgAV meanP.54 mmHgAV Vmax: 2.33 m/Antonio Vmean: 1.52 | | m/Antonio VTI: 46.97 cmAVA Vmax: 1.38 cm2AVA (VTI): 1.63 ca5MIDN Vmax: 0.00 | | cm2/m2AVAI (VTI): 0.00 cm2/m2LVCI Dopp: 2.67 l/[id number] Dopp: 5.69 l/minHR: | | 74.26 BPMLVOT maxP.91 mmHgLVOT meanP.29 mmHgLVSI Dopp: 36.00 ml/m2LVSV | | Dopp: 76.68 mlLVOT Vmax: 0.85 m/sLVOT Vmean: 0.50 m/sLVOT VTI: 20.29 cmRAP: 5 | | mmHgRVSP: 37.07 mmHgTR maxP.07 mmHgTR Vmax: 2.83 m/s Lithographic Photographer: | | CMAuthenticated by: Luisito Fofana MDReport Date/Time: 05-12-2018 18:55:18 IMPRESSION: 1. | | Overall left ventricular systolic function is normal with, an EF between 60 - 65 %.2. | | There is ejew-lw-ajnxgyeb, eccentric aortic regurgitation.3. Mild aortic stenosis | | present.4. Evidence of mobile vegetations on the non-coronary (1.2x0.9 cm) and right | | coronary (1.0x0.9 cm) cusps. | |Tricuspid Valve: No vegetation visualized. | |Aorta: Ascending aorta, aortic arch and descending thoracic aorta are of normal caliber wit h no significant atherosclerotic disease. | |Pulmonary Veins: All pulmonary veins appear normal. | |Pulmonary Veins: The flow patterns, measured by Doppler, appear normal. | |Pericardium: There is no pericardial effusion. | | | |MEASUREMENTS | | | |LVOT Diam: 2.19 cm | |HR: 217.5 BPM | |R-R: 275.86 ms | |HR: 78.07 BPM | |AV maxP.84 mmHg | |AV meanP.54 mmHg | |AV Vmax: 2.33 m/s | |AV Vmean: 1.52 m/s | |AV VTI: 46.97 cm | |MARTHA Vmax: 1.38 cm2 | |MARTHA (VTI): 1.63 cm2 | |AVAI Vmax: 0.00 cm2/m2 | |AVAI (VTI): 0.00 cm2/m2 | |LVCI Dopp: 2.67 l/minm2 | |LVCO Dopp: 5.69 l/min | |HR: 74.26 BPM | |LVOT maxP.91 mmHg | |LVOT meanP.29 mmHg | |LVSI Dopp: 36.00 ml/m2 | |LVSV Dopp: 76.68 ml | |LVOT Vmax: 0.85 m/s | |LVOT Vmean: 0.50 m/s | |LVOT VTI: 20.29 cm | |RAP: 5 mmHg | |RVSP: 37.07 mmHg | |TR maxP.07 mmHg | |TR Vmax: 2.83 m/s | | | |Lithographic Photographer: CM | |Authenticated by: Luisito Fofana MD | |Report Date/Time: 05-12-2018 18:55:18 | | | |IMPRESSION: | |1. Overall left ventricular systolic function is normal with, an EF between 60 - 65 %. | |2. There is ahbr-ly-mulbaiyr, eccentric aortic regurgitation. | |3. Mild aortic stenosis present. | |4. 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 | + + Gentamicin, Trough (05/12/2018 7:38 AM PDT) + + + + + + | Component | Value | Ref Range | Performed | Pathologist | | | | | At | Signature | + + + + + + | GENTAMICIN | 1.2Comment: Testing | ug/mL | EXTERNAL | | | TROUGH | performed at [facility];[address] | | LAB | | | | [address];[place], [place] | | | | | | [address] | | | | + + + + + + + + | Specimen | + + | Blood specimen | | (specimen) | + + + +---------+ + + | Performing | Address | City/State/Zipcode | Phone Number | | Organization | | | | + +---------+ + + | EXTERNAL LAB | | | | + +---------+ + + POC Glucose (05/12/2018 5:30 AM PDT) + + + + + + | Component | Value | Ref Range | Performed | Pathologist | | | | | At | Signature | + + + + + + | Glucose, | 139 (H)Comment: Testing | 65 - 99 mg/dL | EXTERNAL | | | Fingerstick | performed at [facility];[address] | | LAB | | | | [address];[place] | | | | | | [address] | | | | + + + + + + + + | Specimen | + + | | + + + +---------+ + + | Performing | Address | City/State/Zipcode | Phone Number | | Organization | | | | + +---------+ + + | EXTERNAL LAB | | | | + +---------+ + + External Lab: CBC (05/12/2018 3:19 AM PDT) + + + + + + | Component | Value | Ref Range | Performed | Pathologist | | | | | At | Signature | + + + + + + | WBC | 6.93 | 3.80 - 11.00 | EXTERNAL | | | | | K/uL | LAB | | + + + + + + | Non- | 6.56 (H) | 4.20 - 5.70 | EXTERNAL | | | Red Blood | | M/uL | LAB | | | Cells | | | | | | Counted | | | | | + + + + + + | Hemoglobin | 14.6 | 13.2 - 17.0 | EXTERNAL | | | | | g/dL | LAB | | + + + + + + | Hematocrit, | 44.6 | 39.0 - 50.0 % | EXTERNAL | | | POC | | | LAB | | + + + + + + | MCV | 68.0 (L) | 80.0 - 100.0 fl | EXTERNAL | | | | | | LAB | | + + + + + + | MCH | 22.3 (L) | 27.0 - 34.0 pg | EXTERNAL | | | | | | LAB | | + + + + + + | MCHC | 32.7 | 32.0 - 35.5 | EXTERNAL | | | | | g/dL | LAB | | + + + + + + | RDW-CV | 52.1 | 37 - 53 fl | EXTERNAL | | | | | | LAB | | + + + + + + | Platelet | 172 | 150 - 400 K/uL | EXTERNAL | | | Count | | | LAB | | | Plasma | | | | | + + + + + + | MPV | 8.5 | fl | EXTERNAL | | | | | | LAB | | + + + + + + | Differentia | AUTOMATED | | EXTERNAL | | | l Type | | | LAB | | + + + + + + | % Segmented | 61.35 | % | EXTERNAL | | | | | | LAB | | | Neutrophils | | | | | + + + + + + | % | 25.50 | % | EXTERNAL | | | Lymphocytes | | | LAB | | + + + + + + | % Monocytes | 9.23 | % | EXTERNAL | | | | | | LAB | | + + + + + + | % | 2.95 | % | EXTERNAL | | | Eosinophils | | | LAB | | + + + + + + | % Basophils | 0.97 | % | EXTERNAL | | | | | | LAB | | + + + + + + | Absolute | 4.25 | 1.90 - 7.40 | EXTERNAL | | | Segmented | | K/uL | LAB | | | Neutrophils | | | | | + + + + + + | Absolute | 1.77 | 1.00 - 3.90 | EXTERNAL | | | Lymphocytes | | K/uL | LAB | | + + + + + + | Absolute | 0.64 | 0.00 - 0.80 | EXTERNAL | | | Monocytes | | K/uL | LAB | | + + + + + + | Absolute | 0.21 | 0.00 - 0.50 | EXTERNAL | | | Eosinophils | | K/uL | LAB | | + + + + + + | Absolute | 0.07 | 0.00 - 0.10 | EXTERNAL | | | Basophils | | K/uL | LAB | | + + + + + + | RBC | 1+ | | EXTERNAL | | | Morphology | Comment: | | LAB | | | | ANISO | | | | | | 2+ | | | | | | HYPO | | | | | | 3+ | | | | | | MICRO | | | | | | NORMAL PLT MORPH | | | | | | | | | | + + + + + + | Platelet | ADEQUATEComment: Testing | | EXTERNAL | | | Estimate | performed at [facility], [address] | | [address] | | | | [address], | | | | | | [place] [address] | | | | + + + + + + + + | Specimen | + + | Blood specimen | | (specimen) | + + + +---------+ + + | Performing | Address | City/State/Zipcode | Phone Number | | Organization | | | | + +---------+ + + | EXTERNAL LAB | | | | + +---------+ + + Phosphorus (05/12/2018 3:19 AM PDT) + + + + + + | Component | Value | Ref Range | Performed | Pathologist | | | | | At | Signature | + + + + + + | PHOSPHORUS | 3.8Comment: Testing | 2.3 - 4.8 mg/dL | EXTERNAL | | | | performed at [facility], [address] | | LAB | | | | [address], | | | | | | [place] [address] | | | | + + + + + + + + | Specimen | + + | Blood specimen | | (specimen) | + + + +---------+ + + | Performing | Address | City/State/Zipcode | Phone Number | | Organization | | | | + +---------+ + + | EXTERNAL LAB | | | | + +---------+ + + Magnesium (05/12/2018 3:19 AM PDT) + + + + + + | Component | Value | Ref Range | Performed | Pathologist | | | | | At | Signature | + + + + + + | Magnesium | 1.8Comment: Testing | 1.7 - 2.4 mg/dL | EXTERNAL | | | | performed at [facility], [address] | | LAB | | | | [address], | | | | | | [place] [address] | | | | + + + + + + + + | Specimen | + + | Blood specimen | | (specimen) | + + + +---------+ + + | Performing | Address | City/State/Zipcode | Phone Number | | Organization | | | | + +---------+ + + | EXTERNAL LAB | | | | + +---------+ + + Gentamicin, Peak (05/12/2018 3:19 AM PDT) + + + + + + | Component | Value | Ref Range | Performed | Pathologist | | | | | At | Signature | + + + + + + | GENTAMICIN | 3.2 (L)Comment: Testing | 5 - 10 ug/mL | EXTERNAL | | | PEAK | performed at [facility];[address] | | LAB | | | | [address];[place] | | | | | | [address] | | | | + + + + + + + + | Specimen | + + | Blood specimen | | (specimen) | + + + +---------+ + + | Performing | Address | City/State/Zipcode | Phone Number | | Organization | | | | + +---------+ + + | EXTERNAL LAB | | | | + +---------+ + + Basic Metabolic Panel (05/12/2018 3:19 AM PDT) + + + + + + | Component | Value | Ref Range | Performed | Pathologist | | | | | At | Signature | + + + + + + | Na | 140 | 135 - 145 | EXTERNAL | | | | | mmol/L | LAB | | + + + + + + | K | 4.3 | 3.5 - 4.9 | EXTERNAL | | | | | mmol/L | LAB | | + + + + + + | Cl | 104 | 99 - 109 mmol/L | EXTERNAL | | | | | | LAB | | + + + + + + | CO2 | 25 | 23 - 32 mmol/L | EXTERNAL | | | | | | LAB | | + + + + + + | Anion Gap | 15 | 5 - 20 mmol/L | EXTERNAL | | | | | | LAB | | + + + + + + | Glucose, | 126 (H) | 65 - 99 mg/dL | EXTERNAL | | | Fasting | | | LAB | | + + + + + + | BUN | 5 (L) | 8 - 25 mg/dL | EXTERNAL | | | | | | LAB | | + + + + + + | Creatinine | 0.5 (L) | 0.70 - 1.30 | EXTERNAL | | | | | mg/dL | LAB | | + + + + + + | BUN/Creatin | 10 | | EXTERNAL | | | ine Ratio | | | LAB | | + + + + + + | Calcium | 8.2 (L) | 8.5 - 10.5 | EXTERNAL | | | | | mg/dL | LAB | | + + + + + + | Estimated | >60Comment: GFR <60: | mL/min/1.73m2 | EXTERNAL | | | GFR | CHRONIC KIDNEY DISEASE, | | LAB | | | | IF FOUND OVER A 3 MONTH | | | | | | PERIOD.GFR <15: KIDNEY | | | | | | FAILURE.FOR | | | | | | AMERICANS, MULTIPLY THE | | | | | | CALCULATED GFR BY | | | | | | 1.210.This eGFR is | | | | | | calculated using the | | | | | | MDRD IDMS traceable | | | | | | equation.Testing | | | | | | performed at [facility], [address] | | | | | | [facility], | | | | | | [place] [address] | | | | + + + + + + + + | Specimen | + + | Blood specimen | | (specimen) | + + + +---------+ + + | Performing | Address | City/State/Zipcode | Phone Number | | Organization | | | | + +---------+ + + | EXTERNAL LAB | | | | + +---------+ + + POC Glucose (05/11/2018 9:40 PM PDT) + + + + + + | Component | Value | Ref Range | Performed | Pathologist | | | | | At | Signature | + + + + + + | Glucose, | 215 (H)Comment: Testing | 65 - 99 mg/dL | EXTERNAL | | | Fingerstick | performed at [facility];[address] | | LAB | | | | [address];[place] | | | | | | [address] | | | | + + + + + + + + | Specimen | + + | | + + + +---------+ + + | Performing | Address | City/State/Zipcode | Phone Number | | Organization | | | | + +---------+ + + | EXTERNAL LAB | | | | + +---------+ + + POC Glucose (05/11/2018 4:26 PM PDT) + + + + + + | Component | Value | Ref Range | Performed | Pathologist | | | | | At | Signature | + + + + + + | Glucose, | 203 (H)Comment: Testing | 65 - 99 mg/dL | EXTERNAL | | | Fingerstick | performed at [facility];[address] | | LAB | | | | [address];[place], [place] | | | | | | [address] | | | | + + + + + + + + | Specimen | + + | | + + + +---------+ + + | Performing | Address | City/State/Zipcode | Phone Number | | Organization | | | | + +---------+ + + | EXTERNAL LAB | | | | + +---------+ + + POC Glucose (05/11/2018 12:36 PM PDT) + + + + + + | Component | Value | Ref Range | Performed | Pathologist | | | | | At | Signature | + + + + + + | Glucose, | 153 (H)Comment: Testing | 65 - 99 mg/dL | EXTERNAL | | | Fingerstick | performed at [facility];[address] | | LAB | | | | [address];[place] | | | | | | [address] | | | | + + + + + + + + | Specimen | + + | | + + + +---------+ + + | Performing | Address | City/State/Zipcode | Phone Number | | Organization | | | | + +---------+ + + | EXTERNAL LAB | | | | + +---------+ + + Culture, Blood, 2nd Specimen (05/11/2018 9:23 AM PDT) + + | Specimen | + + | Blood specimen | | (specimen) | + + + + + | Narrative | Performed At | + + + | Specimen Description BLOOD, PERIPHERAL DRAW | EXTERNAL LAB | | SPECIAL REQUESTS RAC CULTURE | | | NO GROWTH 6 DAYS | | + + + + +---------+ + + | Performing | Address | City/State/Zipcode | Phone Number | | Organization | | | | + +---------+ + + | EXTERNAL LAB | | | | + +---------+ + + Culture, Blood (05/11/2018 9:23 AM PDT) + + | Specimen | + + | Blood specimen | | (specimen) | + + + + + | Narrative | Performed At | + + + | Specimen Description BLOOD, PERIPHERAL DRAW | EXTERNAL LAB | | SPECIAL REQUESTS LEFT FOREARM CULTURE | | | NO GROWTH 6 DAYS | | + + + + +---------+ + + | Performing | Address | City/State/Zipcode | Phone Number | | Organization | | | | + +---------+ + + | EXTERNAL LAB | | | | + +---------+ + + POC Glucose (05/11/2018 5:43 AM PDT) + + + + + + | Component | Value | Ref Range | Performed | Pathologist | | | | | At | Signature | + + + + + + | Glucose, | 116 (H)Comment: Testing | 65 - 99 mg/dL | EXTERNAL | | | Fingerstick | performed at [facility];[address] | | LAB | | | | [address];[place], [place] | | | | | | [address] | | | | + + + + + + + + | Specimen | + + | | + + + +---------+ + + | Performing | Address | City/State/Zipcode | Phone Number | | Organization | | | | + +---------+ + + | EXTERNAL LAB | | | | + +---------+ + + External Lab: LILLIE (05/11/2018 4:04 AM PDT) + + +---- + + + | Component | Value | Ref Range | Performed | Pathologist | | | | | At | Signature | + + +---- + + + | WBC | 6.84 | 3.8 0 - 11.00 | EXTERNAL | | | | | K/u L | LAB | | + + +---- + + + | Non- | 6.47 (H) | 4.2 0 - 5.70 | EXTERNAL | | | Red Blood | | M/u L | LAB | | | Cells | | | | | | Counted | | | | | + + +---- + + + | Hemoglobin | 14.5 | 13. 2 - 17.0 | EXTERNAL | | | | | g/d L | LAB | | + + +---- + + + | Hematocrit, | 43.7 | 39. 0 - 50.0 % | EXTERNAL | | | POC | | | LAB | | + + +---- + + + | MCV | 67.6 (L) | 80. 0 - 100.0 fl | EXTERNAL | | | | | | LAB | | + + +---- + + + | MCH | 22.4 (L) | 27. 0 - 34.0 pg | EXTERNAL | | | | | | LAB | | + + +---- + + + | MCHC | 33.1 | 32. 0 - 35.5 | EXTERNAL | | | | | g/d L | LAB | | + + +---- + + + | RDW-CV | 49.4 | 37 - 53 fl | EXTERNAL | | | | | | LAB | | + + +---- + + + | Platelet | 160 | 150 - 400 K/uL | EXTERNAL | | | Count | | | LAB | | | Plasma | | | | | + + +---- + + + | MPV | 8.6 | fl | EXTERNAL | | | | | | LAB | | + + +---- + + + | Differentia | AUTOMATED | | EXTERNAL | | | l Type | | | LAB | | + + +---- + + + | % Segmented | 66.81 | % | EXTERNAL | | | | | | LAB | | | Neutrophils | | | | | + + +---- + + + | % | 20.91 | % | EXTERNAL | | | Lymphocytes | | | LAB | | + + +---- + + + | % Monocytes | 9.09 | % | EXTERNAL | | | | | | LAB | | + + +---- + + + | % | 2.45 | % | EXTERNAL | | | Eosinophils | | | LAB | | + + +---- + + + | % Basophils | 0.74 | % | EXTERNAL | | | | | | LAB | | + + +---- + + + | Absolute | 4.57 | 1.9 0 - 7.40 | EXTERNAL | | | Segmented | | K/u L | LAB | | | Neutrophils | | | | | + + +---- + + + | Absolute | 1.43 | 1.0 0 - 3.90 | EXTERNAL | | | Lymphocytes | | K/u L | LAB | | + + +---- + + + | Absolute | 0.62 | 0.0 0 - 0.80 | EXTERNAL | | | Monocytes | | K/u L | LAB | | + + +---- + + + | Absolute | 0.17 | 0.0 0 - 0.50 | EXTERNAL | | | Eosinophils | | K/u L | LAB | | + + +---- + + + | Absolute | 0.05 | 0.0 0 - 0.10 | EXTERNAL | | | Basophils | | K/u L | LAB | | + + +---- + + + | RBC | 2+Comment: | | EXTERNAL | | | Morphology | MICRO2+HYPO1+ANISONORMAL | | LAB | | | | PLT MORPHTesting | | | | | | performed at [facility], [address] | | | | | | [facility], | | | | | | [place] [address] | | | | | |ANISO | | | | | |NORMAL PLT MORPH | | | | | |Testing performed at [facility], [facility], [place] [address] | | | | | | | | | | + + +---- + + + + + | Specimen | + + | Blood specimen | | (specimen) | + + + +---------+ + + | Performing | Address | City/State/Zipcode | Phone Number | | Organization | | | | + +---------+ + + | EXTERNAL LAB | | | | + +---------+ + + Phosphorus (05/11/2018 4:04 AM PDT) + + + + + + | Component | Value | Ref Range | Performed | Pathologist | | | | | At | Signature | + + + + + + | PHOSPHORUS | 3.3Comment: Testing | 2.3 - 4.8 mg/dL | EXTERNAL | | | | performed at [facility], [address] | | LAB | | | | [address], | | | | | | [place] [address] | | | | + + + + + + + + | Specimen | + + | Blood specimen | | (specimen) | + + + +---------+ + + | Performing | Address | City/State/Zipcode | Phone Number | | Organization | | | | + +---------+ + + | EXTERNAL LAB | | | | + +---------+ + + Magnesium (05/11/2018 4:04 AM PDT) + + + + + + | Component | Value | Ref Range | Performed | Pathologist | | | | | At | Signature | + + + + + + | Magnesium | 1.9Comment: Testing | 1.7 - 2.4 mg/dL | EXTERNAL | | | | performed at [facility], [address] | | LAB | | | | [address], | | | | | | [place] [address] | | | | + + + + + + + + | Specimen | + + | Blood specimen | | (specimen) | + + + +---------+ + + | Performing | Address | City/State/Zipcode | Phone Number | | Organization | | | | + +---------+ + + | EXTERNAL LAB | | | | + +---------+ + + Basic Metabolic Panel (05/11/2018 4:04 AM PDT) + + + + + + | Component | Value | Ref Range | Performed | Pathologist | | | | | At | Signature | + + + + + + | Na | 136 | 135 - 145 | EXTERNAL | | | | | mmol/L | LAB | | + + + + + + | K | 4.1 | 3.5 - 4.9 | EXTERNAL | | | | | mmol/L | LAB | | + + + + + + | Cl | 101 | 99 - 109 mmol/L | EXTERNAL | | | | | | LAB | | + + + + + + | CO2 | 23 | 23 - 32 mmol/L | EXTERNAL | | | | | | LAB | | + + + + + + | Anion Gap | 16 | 5 - 20 mmol/L | EXTERNAL | | | | | | LAB | | + + + + + + | Glucose, | 153 (H) | 65 - 99 mg/dL | EXTERNAL | | | Fasting | | | LAB | | + + + + + + | BUN | 7 (L) | 8 - 25 mg/dL | EXTERNAL | | | | | | LAB | | + + + + + + | Creatinine | 0.7 | 0.70 - 1.30 | EXTERNAL | | | | | mg/dL | LAB | | + + + + + + | BUN/Creatin | 10 | | EXTERNAL | | | ine Ratio | | | LAB | | + + + + + + | Calcium | 8.1 (L) | 8.5 - 10.5 | EXTERNAL | | | | | mg/dL | LAB | | + + + + + + | Estimated | >60Comment: GFR <60: | mL/min/1.73m2 | EXTERNAL | | | GFR | CHRONIC KIDNEY DISEASE, | | LAB | | | | IF FOUND OVER A 3 MONTH | | | | | | PERIOD.GFR <15: KIDNEY | | | | | | FAILURE.FOR | | | | | | AMERICANS, MULTIPLY THE | | | | | | CALCULATED GFR BY | | | | | | 1.210.This eGFR is | | | | | | calculated using the | | | | | | MDRD IDMS traceable | | | | | | equation.Testing | | | | | | performed at [facility], [address] | | | | | | [facility], | | | | | | [place] [address] | | | | + + + + + + + + | Specimen | + + | Blood specimen | | (specimen) | + + + +---------+ + + | Performing | Address | City/State/Zipcode | Phone Number | | Organization | | | | + +---------+ + + | EXTERNAL LAB | | | | + +---------+ + + Troponin I (05/11/2018 12:07 AM PDT) + + + + + + | Component | Value | Ref Range | Performed | Pathologist | | | | | At | Signature | + + + + + + | Troponin I, | <0.020Comment: 0.00 to | 0.00 - 0.10 | EXTERNAL | | | Qual | 0.10 CONSISTENT WITH | ng/mL | LAB | | | | NORMAL POPULATION0.11 | | | | | | to 0.60 CONSISTENT | | | | | | WITH INCREASED RISK FOR | | | | | | ADVERSE OUTCOMES> 0.60 | | | | | | CONSISTENT | | | | | | WITH WHO CRITERIA FOR | | | | | | ACUTE NV Testing | | | | | | performed at [facility] | | | | | | [facility];[place], [place] | | | | | | [address] | | | | + + + + + + + + | Specimen | + + | Blood specimen | | (specimen) | + + + +---------+ + + | Performing | Address | City/State/Zipcode | Phone Number | | Organization | | | | + +---------+ + + | EXTERNAL LAB | | | | + +---------+ + + POC Glucose (05/10/2018 9:08 PM PDT) + + + + + + | Component | Value | Ref Range | Performed | Pathologist | | | | | At | Signature | + + + + + + | Glucose, | 208 (H)Comment: Testing | 65 - 99 mg/dL | EXTERNAL | | | Fingerstick | performed at [facility];[address] | | LAB | | | | [address];[place], [place] | | | | | | [address] | | | | + + + + + + + + | Specimen | + + | | + + + +---------+ + + | Performing | Address | City/State/Zipcode | Phone Number | | Organization | | | | + +---------+ + + | EXTERNAL LAB | | | | + +---------+ + + Troponin I (05/10/2018 5:48 PM PDT) + + + + + + | Component | Value | Ref Range | Performed | Pathologist | | | | | At | Signature | + + + + + + | Troponin I, | <0.020Comment: 0.00 to | 0.00 - 0.10 | EXTERNAL | | | Qual | 0.10 CONSISTENT WITH | ng/mL | LAB | | | | NORMAL POPULATION0.11 | | | | | | to 0.60 CONSISTENT | | | | | | WITH INCREASED RISK FOR | | | | | | ADVERSE OUTCOMES> 0.60 | | | | | | CONSISTENT | | | | | | WITH WHO CRITERIA FOR | | | | | | ACUTE NV Testing | | | | | | performed at [facility];[address] | | | | | | [address];[place], [place] | | | | | | [address] | | | | + + + + + + + + | Specimen | + + | Blood specimen | | (specimen) | + + + +---------+ + + | Performing | Address | City/State/Zipcode | Phone Number | | Organization | | | | + +---------+ + + | EXTERNAL LAB | | | | + +---------+ + + POC Glucose (05/10/2018 4:45 PM PDT) + + + + + + | Component | Value | Ref Range | Performed | Pathologist | | | | | At | Signature | + + + + + + | Glucose, | 134 (H)Comment: Testing | 65 - 99 mg/dL | EXTERNAL | | | Fingerstick | performed at [facility];[address] | | LAB | | | | [address];[place] | | | | | | [address] | | | | + + + + + + + + | Specimen | + + | | + + + +---------+ + + | Performing | Address | City/State/Zipcode | Phone Number | | Organization | | | | + +---------+ + + | EXTERNAL LAB | | | | + +---------+ + + ECG 12 lead (05/10/2018 1:14 PM PDT) + + + + + + | Component | Value | Ref Range | Performed | Pathologist | | | | | At | Signature | + + + + + + | DIAGNOSIS: | Normal sinus rhythmLeft | | EXTERNAL | | | | axis deviationInferior | | LAB | | | | infarct (cited on or | | | | | | before | | | | | | 04-MAY-2018)Abnormal | | | | | | ECGWhen compared with | | | | | | ECG of 04-MAY-2018 | | | | | | 15:04,No significant | | | | | | change was | | | | | | foundConfirmed by | | | | | | Jeremiah Bradford MD | | | | | | ([id number]) on 05/10/2018 | | | | | | 9:31:21 PM | | | | + + + + + + + + | Specimen | + + | | + + + + + | Narrative | Performed At | + + + | Historically converted procedure from [facility] environment | EXTERNAL LAB | + + + + +---------+ + + | Performing | Address | City/State/Zipcode | Phone Number | | Organization | | | | + +---------+ + + | EXTERNAL LAB | | | | + +---------+ + + Troponin I (05/10/2018 1:03 PM PDT) + + + + + + | Component | Value | Ref Range | Performed | Pathologist | | | | | At | Signature | + + + + + + | Troponin I, | <0.020Comment: 0.00 to | 0.00 - 0.10 | EXTERNAL | | | Qual | 0.10 CONSISTENT WITH | ng/mL | LAB | | | | NORMAL POPULATION0.11 | | | | | | to 0.60 CONSISTENT | | | | | | WITH INCREASED RISK FOR | | | | | | ADVERSE OUTCOMES> 0.60 | | | | | | CONSISTENT | | | | | | WITH WHO CRITERIA FOR | | | | | | ACUTE NV Testing | | | | | | performed at [facility] | | | | | | [facility];[place], [place] | | | | | | [id number] | | | | + + + + + + + + | Specimen | + + | Blood specimen | | (specimen) | + + + +---------+ + + | Performing | Address | City/State/Zipcode | Phone Number | | Organization | | | | + +---------+ + + | EXTERNAL LAB | | | | + +---------+ + + POC Glucose (05/10/2018 11:36 AM PDT) + + + + + + | Component | Value | Ref Range | Performed | Pathologist | | | | | At | Signature | + + + + + + | Glucose, | 160 (H)Comment: Testing | 65 - 99 mg/dL | EXTERNAL | | | Fingerstick | performed at [facility];[address] | [address] | | | [address];[place], [place] | | | | | | [address] | | | | + + + + + + + + | Specimen | + + | | + + + +---------+ + + | Performing | Address | City/State/Zipcode | Phone Number | | Organization | | | | + +---------+ + + | EXTERNAL LAB | | | | + +---------+ + + Culture, Blood, 2nd Specimen (05/10/2018 10:20 AM PDT) + + | Specimen | + + | Blood specimen | | (specimen) | + + + + + | Narrative | Performed At | + + + | Specimen Description BLOOD, PERIPHERAL DRAW | EXTERNAL LAB | | SPECIAL REQUESTS LAC CULTURE | | | NO GROWTH 6 DAYS | | + + + + +---------+ + + | Performing | Address | City/State/Zipcode | Phone Number | | Organization | | | | + +---------+ + + | EXTERNAL LAB | | | | + +---------+ + + Culture, Blood (05/10/2018 10:19 AM PDT) + + | Specimen | + + | Blood specimen | | (specimen) | + + + + + | Narrative | Performed At | + + + | Specimen Description BLOOD, PERIPHERAL DRAW | EXTERNAL LAB | | SPECIAL REQUESTS RAC CULTURE | | | NO GROWTH 6 DAYS | | + + + + +---------+ + + | Performing | Address | City/State/Zipcode | Phone Number | | Organization | | | | + +---------+ + + | EXTERNAL LAB | | | | + +---------+ + + POC Glucose (05/10/2018 6:00 AM PDT) + + + + + + | Component | Value | Ref Range | Performed | Pathologist | | | | | At | Signature | + + + + + + | Glucose, | 136 (H)Comment: Testing | 65 - 99 mg/dL | EXTERNAL | | | Fingerstick | performed at [facility];[address] | [address] | | | | [address];[place] | | | | | | [id number] | | | | + + + + + + + + | Specimen | + + | | + + + +---------+ + + | Performing | Address | City/State/Zipcode | Phone Number | | Organization | | | | + +---------+ + + | EXTERNAL LAB | | | | + +---------+ + + External Lab: CBC (05/10/2018 4:01 AM PDT) + + +---- + + + | Component | Value | Ref Range | Performed | Pathologist | | | | | At | Signature | + + +---- + + + | WBC | 7.95 | 3.8 0 - 11.00 | EXTERNAL | | | | | K/u L | LAB | | + + +---- + + + | Non- | 6.67 (H) | 4.2 0 - 5.70 | EXTERNAL | | | Red Blood | | M/u L | LAB | | | Cells | | | | | | Counted | | | | | + + +---- + + + | Hemoglobin | 15.0 | 13. 2 - 17.0 | EXTERNAL | | | | | g/d L | LAB | | + + +---- + + + | Hematocrit, | 45.1 | 39. 0 - 50.0 % | EXTERNAL | | | POC | | | LAB | | + + +---- + + + | MCV | 67.6 (L) | 80. 0 - 100.0 fl | EXTERNAL | | | | | | LAB | | + + +---- + + + | MCH | 22.5 (L) | 27. 0 - 34.0 pg | EXTERNAL | | | | | | LAB | | + + +---- + + + | MCHC | 33.3 | 32. 0 - 35.5 | EXTERNAL | | | | | g/d L | LAB | | + + +---- + + + | RDW-CV | 50.3 | 37 - 53 fl | EXTERNAL | | | | | | LAB | | + + +---- + + + | Platelet | 154 | 150 - 400 K/uL | EXTERNAL | | | Count | | | LAB | | | Plasma | | | | | + + +---- + + + | MPV | 8.8 | fl | EXTERNAL | | | | | | LAB | | + + +---- + + + | Differentia | AUTOMATED | | EXTERNAL | | | l Type | | | LAB | | + + +---- + + + | % Segmented | 68.87 | % | EXTERNAL | | | | | | LAB | | | Neutrophils | | | | | + + +---- + + + | % | 18.77 | % | EXTERNAL | | | Lymphocytes | | | LAB | | + + +---- + + + | % Monocytes | 8.75 | % | EXTERNAL | | | | | | LAB | | + + +---- + + + | % | 3.10 | % | EXTERNAL | | | Eosinophils | | | LAB | | + + +---- + + + | % Basophils | 0.51 | % | EXTERNAL | | | | | | LAB | | + + +---- + + + | Absolute | 5.48 | 1.9 0 - 7.40 | EXTERNAL | | | Segmented | | K/u L | LAB | | | Neutrophils | | | | | + + +---- + + + | Absolute | 1.49 | 1.0 0 - 3.90 | EXTERNAL | | | Lymphocytes | | K/u L | LAB | | + + +---- + + + | Absolute | 0.70 | 0.0 0 - 0.80 | EXTERNAL | | | Monocytes | | K/u L | LAB | | + + +---- + + + | Absolute | 0.25 | 0.0 0 - 0.50 | EXTERNAL | | | Eosinophils | | K/u L | LAB | | + + +---- + + + | Absolute | 0.04 | 0.0 0 - 0.10 | EXTERNAL | | | Basophils | | K/u L | LAB | | + + +---- + + + | RBC | 3+Comment: | | EXTERNAL | | | Morphology | MICRO1+HYPO1+ANISONORMAL | | LAB | | | | PLT MORPHTesting | | | | | | performed at [facility], [address] | | | | | | [address], | | | | | | [place] [address] | | | | | |ANISO | | | | | |NORMAL PLT MORPH | | | | | |Testing performed at [facility], [address] [place] [address] | | | | | | | | | | + + +---- + + + + + | Specimen | + + | Blood specimen | | (specimen) | + + + +---------+ + + | Performing | Address | City/State/Zipcode | Phone Number | | Organization | | | | + +---------+ + + | EXTERNAL LAB | | | | + +---------+ + + Phosphorus (05/10/2018 4:01 AM PDT) + + + + + + | Component | Value | Ref Range | Performed | Pathologist | | | | | At | Signature | + + + + + + | PHOSPHORUS | 3.3Comment: Testing | 2.3 - 4.8 mg/dL | EXTERNAL | | | | performed at [facility], [address] | | LAB | | | | [address], | | | | | | [place] [address] | | | | + + + + + + + + | Specimen | + + | Blood specimen | | (specimen) | + + + +---------+ + + | Performing | Address | City/State/Zipcode | Phone Number | | Organization | | | | + +---------+ + + | EXTERNAL LAB | | | | + +---------+ + + Magnesium (05/10/2018 4:01 AM PDT) + + + + + + | Component | Value | Ref Range | Performed | Pathologist | | | | | At | Signature | + + + + + + | Magnesium | 1.8Comment: Testing | 1.7 - 2.4 mg/dL | EXTERNAL | | | | performed at [facility], [address] | | LAB | | | | [address], | | | | | | [place] [address] | | | | + + + + + + + + | Specimen | + + | Blood specimen | | (specimen) | + + + +---------+ + + | Performing | Address | City/State/Zipcode | Phone Number | | Organization | | | | + +---------+ + + | EXTERNAL LAB | | | | + +---------+ + + Basic Metabolic Panel (05/10/2018 4:01 AM PDT) + + + + + + | Component | Value | Ref Range | Performed | Pathologist | | | | | At | Signature | + + + + + + | Na | 135 | 135 - 145 | EXTERNAL | | | | | mmol/L | LAB | | + + + + + + | K | 4.2 | 3.5 - 4.9 | EXTERNAL | | | | | mmol/L | LAB | | + + + + + + | Cl | 101 | 99 - 109 mmol/L | EXTERNAL | | | | | | LAB | | + + + + + + | CO2 | 24 | 23 - 32 mmol/L | EXTERNAL | | | | | | LAB | | + + + + + + | Anion Gap | 14 | 5 - 20 mmol/L | EXTERNAL | | | | | | LAB | | + + + + + + | Glucose, | 116 (H) | 65 - 99 mg/dL | EXTERNAL | | | Fasting | | | LAB | | + + + + + + | BUN | 7 (L) | 8 - 25 mg/dL | EXTERNAL | | | | | | LAB | | + + + + + + | Creatinine | 0.6 (L) | 0.70 - 1.30 | EXTERNAL | | | | | mg/dL | LAB | | + + + + + + | BUN/Creatin | 12 | | EXTERNAL | | | ine Ratio | | | LAB | | + + + + + + | Calcium | 8.2 (L) | 8.5 - 10.5 | EXTERNAL | | | | | mg/dL | LAB | | + + + + + + | Estimated | >60Comment: GFR <60: | mL/min/1.73m2 | EXTERNAL | | | GFR | CHRONIC KIDNEY DISEASE, | | LAB | | | | IF FOUND OVER A 3 MONTH | | | | | | PERIOD.GFR <15: KIDNEY | | | | | | FAILURE.FOR | | | | | | AMERICANS, MULTIPLY THE | | | | | | CALCULATED GFR BY | | | | | | 1.210.This eGFR is | | | | | | calculated using the | | | | | | MDRD IDMS traceable | | | | | | equation.Testing | | | | | | performed at [facility], [address] | | | | | | [facility], | | | | | | [place] [address] | | | | + + + + + + + + | Specimen | + + | Blood specimen | | (specimen) | + + + +---------+ + + | Performing | Address | City/State/Zipcode | Phone Number | | Organization | | | | + +---------+ + + | EXTERNAL LAB | | | | + +---------+ + + POC Glucose (05/09/2018 9:26 PM PDT) + + + + + + | Component | Value | Ref Range | Performed | Pathologist | | | | | At | Signature | + + + + + + | Glucose, | 270 (H)Comment: Testing | 65 - 99 mg/dL | EXTERNAL | | | Fingerstick | performed at [facility];[address] | | LAB | | | | [address];[place] | | | | | | [address] | | | | + + + + + + + + | Specimen | + + | | + + + +---------+ + + | Performing | Address | City/State/Zipcode | Phone Number | | Organization | | | | + +---------+ + + | EXTERNAL LAB | | | | + +---------+ + + POC Glucose (05/09/2018 4:07 PM PDT) + + + + + + | Component | Value | Ref Range | Performed | Pathologist | | | | | At | Signature | + + + + + + | Glucose, | 150 (H)Comment: Testing | 65 - 99 mg/dL | EXTERNAL | | | Fingerstick | performed at [facility];[address] | | LAB | | | | [address];[place], [place] | | | | | | [address] | | | | + + + + + + + + | Specimen | + + | | + + + +---------+ + + | Performing | Address | City/State/Zipcode | Phone Number | | Organization | | | | + +---------+ + + | EXTERNAL LAB | | | | + +---------+ + + POC Glucose (05/09/2018 11:34 AM PDT) + + + + + + | Component | Value | Ref Range | Performed | Pathologist | | | | | At | Signature | + + + + + + | Glucose, | 133 (H)Comment: Testing | 65 - 99 mg/dL | EXTERNAL | | | Fingerstick | performed at [facility];[address] | | LAB | | | | [address];[place] | | | | | | [address] | | | | + + + + + + + + | Specimen | + + | | + + + +---------+ + + | Performing | Address | City/State/Zipcode | Phone Number | | Organization | | | | + +---------+ + + | EXTERNAL LAB | | | | + +---------+ + + Culture, Blood, 2nd Specimen (05/09/2018 9:56 AM PDT) + + | Specimen | + + | Blood specimen | | (specimen) | + + + + + | Narrative | Performed At | + + + | Specimen Description BLOOD, PERIPHERAL DRAW | EXTERNAL LAB | | SPECIAL REQUESTS LEFT FOREARM GRAM STAIN | | | GRAM POSITIVE COCCI | | | SEEN IN AEROBIC BOTTLE | | | SMEAR RESULTS CALLED TO | | | AND READ BACK BY: | | | José RIVERA RN AT 9RP ON 05/10/2018 AT 1733 BY [facility] CULTURE | | | ENTEROCOCCUS FAECALISAbnormal | | | Aminoglycosides (except for | | | high-level resistance testing), cephalosporins, clindamycin, and | | | trimethoprim-sulfamethoxazole may appear active in vitro but they are | | | not effective clinically. | | | GROWTH IN ONE OF TWO BOTTLESAbnormal | | | TIME TO DETECTION: | | | 1.15 DAYS | | | Multiple specimens received. Refer to | | | organism susceptibility on prior culture. | | + + + + +---------+ + + | Performing | Address | City/State/Zipcode | Phone Number | | Organization | | | | + +---------+ + + | EXTERNAL LAB | | | | + +---------+ + + Culture, Blood (05/09/2018 9:43 AM PDT) + + | Specimen | + + | Blood specimen | | (specimen) | + + + + + | Narrative | Performed At | + + + | Specimen Description BLOOD, PERIPHERAL DRAW | EXTERNAL LAB | | SPECIAL REQUESTS LEFT HAND GRAM STAIN | | | GRAM POSITIVE COCCI IN CHAINSAbnormal | | | SEEN IN | | | ANAEROBIC BOTTLE | | | SMEAR RESULTS CALLED TO AND READ BACK BY: | | | DIANA Esquivel RN [id number] 05/10/18 KB CULTURE | | | ENTEROCOCCUS FAECALISAbnormal | | | Aminoglycosides | | | (except for high-level resistance testing), cephalosporins, | | | clindamycin, and trimethoprim-sulfamethoxazole may appear active in | | | vitro but they are not effective clinically. | | | GROWTH IN ONE OF TWO BOTTLESAbnormal | | | TIME TO DETECTION: | | | 0.60 DAYS | | | Suscepibility for - ENTEROCOCCUS FAECALIS Ampicillin | | | SUSCEPTIBLESensitive Penicillin G | | | SUSCEPTIBLESensitive Gentamicin Synergy | | | RESISTANT Resistant Levofloxacin | | | RESISTANT Resistant Streptomycin Synergy RESISTANT | | | Resistant Vancomycin | | | SUSCEPTIBLESensitive | | + + + + +---------+ + + | Performing | Address | City/State/Zipcode | Phone Number | | Organization | | | | + +---------+ + + | EXTERNAL LAB | | | | + +---------+ + + POC Glucose (05/09/2018 8:00 AM PDT) + + + + + + | Component | Value | Ref Range | Performed | Pathologist | | | | | At | Signature | + + + + + + | Glucose, | 184 (H)Comment: Testing | 65 - 99 mg/dL | EXTERNAL | | | Fingerstick | performed at [facility];[address] | | LAB | | | | [address];[place] | | | | | | [address] | | | | + + + + + + + + | Specimen | + + | | + + + +---------+ + + | Performing | Address | City/State/Zipcode | Phone Number | | Organization | | | | + +---------+ + + | EXTERNAL LAB | | | | + +---------+ + + POC Glucose (05/09/2018 4:05 AM PDT) + + + + + + | Component | Value | Ref Range | Performed | Pathologist | | | | | At | Signature | + + + + + + | Glucose, | 174 (H)Comment: Testing | 65 - 99 mg/dL | EXTERNAL | | | Fingerstick | performed at [facility];[address] | | LAB | | | | [address];[place] | | | | | | [address] | | | | + + + + + + + + | Specimen | + + | | + + + +---------+ + + | Performing | Address | City/State/Zipcode | Phone Number | | Organization | | | | + +---------+ + + | EXTERNAL LAB | | | | + +---------+ + + External Lab: CBC (05/09/2018 4:03 AM PDT) + + +---- + + + | Component | Value | Ref Range | Performed | Pathologist | | | | | At | Signature | + + +---- + + + | WBC | 7.73 | 3.8 0 - 11.00 | EXTERNAL | | | | | K/u L | LAB | | + + +---- + + + | Non- | 6.76 (H) | 4.2 0 - 5.70 | EXTERNAL | | | Red Blood | | M/u L | LAB | | | Cells | | | | | | Counted | | | | | + + +---- + + + | Hemoglobin | 15.0 | 13. 2 - 17.0 | EXTERNAL | | | | | g/d L | LAB | | + + +---- + + + | Hematocrit, | 45.7 | 39. 0 - 50.0 % | EXTERNAL | | | POC | | | LAB | | + + +---- + + + | MCV | 67.7 (L) | 80. 0 - 100.0 fl | EXTERNAL | | | | | | LAB | | + + +---- + + + | MCH | 22.2 (L) | 27. 0 - 34.0 pg | EXTERNAL | | | | | | LAB | | + + +---- + + + | MCHC | 32.8 | 32. 0 - 35.5 | EXTERNAL | | | | | g/d L | LAB | | + + +---- + + + | RDW-CV | 49.9 | 37 - 53 fl | EXTERNAL | | | | | | LAB | | + + +---- + + + | Platelet | 162 | 150 - 400 K/uL | EXTERNAL | | | Count | | | LAB | | | Plasma | | | | | + + +---- + + + | MPV | 8.7 | fl | EXTERNAL | | | | | | LAB | | + + +---- + + + | Differentia | AUTOMATED | | EXTERNAL | | | l Type | | | LAB | | + + +---- + + + | % Segmented | 64.95 | % | EXTERNAL | | | | | | LAB | | | Neutrophils | | | | | + + +---- + + + | % | 21.82 | % | EXTERNAL | | | Lymphocytes | | | LAB | | + + +---- + + + | % Monocytes | 8.75 | % | EXTERNAL | | | | | | LAB | | + + +---- + + + | % | 3.78 | % | EXTERNAL | | | Eosinophils | | | LAB | | + + +---- + + + | % Basophils | 0.70 | % | EXTERNAL | | | | | | LAB | | + + +---- + + + | Absolute | 5.02 | 1.9 0 - 7.40 | EXTERNAL | | | Segmented | | K/u L | LAB | | | Neutrophils | | | | | + + +---- + + + | Absolute | 1.69 | 1.0 0 - 3.90 | EXTERNAL | | | Lymphocytes | | K/u L | LAB | | + + +---- + + + | Absolute | 0.68 | 0.0 0 - 0.80 | EXTERNAL | | | Monocytes | | K/u L | LAB | | + + +---- + + + | Absolute | 0.29 | 0.0 0 - 0.50 | EXTERNAL | | | Eosinophils | | K/u L | LAB | | + + +---- + + + | Absolute | 0.05 | 0.0 0 - 0.10 | EXTERNAL | | | Basophils | | K/u L | LAB | | + + +---- + + + | RBC | 3+Comment: | | EXTERNAL | | | Morphology | MICRO2+HYPO1+ANISONORMAL | | LAB | | | | PLT MORPHTesting | | | | | | performed at [facility], [address] | | | | | | [facility], | | | | | | [place] [address] | | | | | |ANISO | | | | | |NORMAL PLT MORPH | | | | | |Testing performed at [facility], [address] [facility], [place] [address] | | | | | | | | | | + + +---- + + + + + | Specimen | + + | Blood specimen | | (specimen) | + + + +---------+ + + | Performing | Address | City/State/Zipcode | Phone Number | | Organization | | | | + +---------+ + + | EXTERNAL LAB | | | | + +---------+ + + Phosphorus (05/09/2018 4:03 AM PDT) + + + + + + | Component | Value | Ref Range | Performed | Pathologist | | | | | At | Signature | + + + + + + | PHOSPHORUS | 3.2Comment: Testing | 2.3 - 4.8 mg/dL | EXTERNAL | | | | performed at [facility], [address] | | LAB | | | | [address], | | | | | | [place] [address] | | | | + + + + + + + + | Specimen | + + | Blood specimen | | (specimen) | + + + +---------+ + + | Performing | Address | City/State/Zipcode | Phone Number | | Organization | | | | + +---------+ + + | EXTERNAL LAB | | | | + +---------+ + + Magnesium (05/09/2018 4:03 AM PDT) + + + + + + | Component | Value | Ref Range | Performed | Pathologist | | | | | At | Signature | + + + + + + | Magnesium | 1.8Comment: Testing | 1.7 - 2.4 mg/dL | EXTERNAL | | | | performed at [facility], [address] | | LAB | | | | [address], | | | | | | [place] [address] | | | | + + + + + + + + | Specimen | + + | Blood specimen | | (specimen) | + + + +---------+ + + | Performing | Address | City/State/Zipcode | Phone Number | | Organization | | | | + +---------+ + + | EXTERNAL LAB | | | | + +---------+ + + Basic Metabolic Panel (05/09/2018 4:03 AM PDT) + + + + + + | Component | Value | Ref Range | Performed | Pathologist | | | | | At | Signature | + + + + + + | Na | 135 | 135 - 145 | EXTERNAL | | | | | mmol/L | LAB | | + + + + + + | K | 4.2 | 3.5 - 4.9 | EXTERNAL | | | | | mmol/L | LAB | | + + + + + + | Cl | 100 | 99 - 109 mmol/L | EXTERNAL | | | | | | LAB | | + + + + + + | CO2 | 25 | 23 - 32 mmol/L | EXTERNAL | | | | | | LAB | | + + + + + + | Anion Gap | 14 | 5 - 20 mmol/L | EXTERNAL | | | | | | LAB | | + + + + + + | Glucose, | 185 (H) | 65 - 99 mg/dL | EXTERNAL | | | Fasting | | | LAB | | + + + + + + | BUN | 9 | 8 - 25 mg/dL | EXTERNAL | | | | | | LAB | | + + + + + + | Creatinine | 0.6 (L) | 0.70 - 1.30 | EXTERNAL | | | | | mg/dL | LAB | | + + + + + + | BUN/Creatin | 15 | | EXTERNAL | | | ine Ratio | | | LAB | | + + + + + + | Calcium | 8.5 | 8.5 - 10.5 | EXTERNAL | | | | | mg/dL | LAB | | + + + + + + | Estimated | >60Comment: GFR <60: | mL/min/1.73m2 | EXTERNAL | | | GFR | CHRONIC KIDNEY DISEASE, | | LAB | | | | IF FOUND OVER A 3 MONTH | | | | | | PERIOD.GFR <15: KIDNEY | | | | | | FAILURE.FOR | | | | | | AMERICANS, MULTIPLY THE | | | | | | CALCULATED GFR BY | | | | | | 1.210.This eGFR is | | | | | | calculated using the | | | | | | MDRD IDMS traceable | | | | | | equation.Testing | | | | | | performed at [facility], [address] | | | | | [facility], | | | | | | [place] [address] | | | | + + + + + + + + | Specimen | + + | Blood specimen | | (specimen) | + + + +---------+ + + | Performing | Address | City/State/Zipcode | Phone Number | | Organization | | | | + +---------+ + + | EXTERNAL LAB | | | | + +---------+ + + POC Glucose (05/09/2018 12:06 AM PDT) + + + + + + | Component | Value | Ref Range | Performed | Pathologist | | | | | At | Signature | + + + + + + | Glucose, | 183 (H)Comment: Testing | 65 - 99 mg/dL | EXTERNAL | | | Fingerstick | performed at [facility];[address] | | LAB | | | | [address];[place], [place] | | | | | | [address] | | | | + + + + + + + + | Specimen | + + | | + + + +---------+ + + | Performing | Address | City/State/Zipcode | Phone Number | | Organization | | | | + +---------+ + + | EXTERNAL LAB | | | | + +---------+ + + POC Glucose (05/08/2018 8:03 PM PDT) + + + + + + | Component | Value | Ref Range | Performed | Pathologist | | | | | At | Signature | + + + + + + | Glucose, | 234 (H)Comment: Testing | 65 - 99 mg/dL | EXTERNAL | | | Fingerstick | performed at [facility];[address] | | LAB | | | | [address];[place] | | | | | | [address] | | | | + + + + + + + + | Specimen | + + | | + + + +---------+ + + | Performing | Address | City/State/Zipcode | Phone Number | | Organization | | | | + +---------+ + + | EXTERNAL LAB | | | | + +---------+ + + MRI Ankle Left wo Contrast (05/08/2018 5:40 PM PDT) + + | Specimen | + + | | + + + + + | Impressions | Performed At | + + + | 1. No evidence of Achilles tendinous tear or tendinosis. 2. | | | There is mild tendinosis of the peroneus longus and flexor hallucis | | | longus tendons. 3. No evidence of ligamentous injury of the ankle. | | | 4. Plantar fasciitis. | | + + + + + + | Narrative | Performed At | + + + | [facility] 1960 MRI ANKLE LEFT WO CONTRAST 05/08/2018 | | | 5:40 PM HISTORY: Foot pain around the Achilles tendon status post | | | treatment with quinolone antibiotic COMPARISON: Plain films, | | | 05/08/2018 TECHNIQUE: Imaging was performed on a 1.5 [employer] MRI | | | system. Multiplanar sequences according to a standard department | | | protocol were acquired without contrast. FINDINGS: There is no | | | bone marrow edema present. The Achilles tendon has a normal | | | morphology. No fluid signal intensity is seen along the Achilles | | | tendinous insertion. There is tendinosis of the peroneus longus | | | tendon as it courses beneath the midfoot. Mild longitudinal splitting | | | is noted as well. There is mild tendinosis of the peroneus longus | | | tendon above the level of the ankle joint. Mild intermediate signal is | | | demonstrated along the flexor hallucis longus tendon at the level | | | of the ankle mortise. The extensor tendons are preserved. | | | Generalized myositis and severe subcutaneous edema is seen along the | | | posterior aspect of the ankle. The anterior and posterior tibiofibular | | | ligaments are intact. The lateral and deltoid ligaments are intact | | | with no tear. Mild chondral thinning is seen along the tibiotalar | | | articulation. No significant joint effusion is present. There is | | | plantar fasciitis with thickening of the plantar fascia measuring 7.9 | | | mm image 10 series 7. | | + + + + + | Procedure Note | + + | Erik Hamm Conversion - 05/03/2019 11:06 AM LOIS FLOYD1960MRI ANKLE | | LEFT WO CONTRAST05/08/2018 5:40 PM HISTORY: Foot pain around the Achilles tendon status | | post treatment with quinolone antibiotic COMPARISON: Plain films, 05/08/2018 | | TECHNIQUE:Imaging was performed on a 1.5 [employer] MRI system. Multiplanar sequences | | according to a standard department protocol were acquired without contrast. FINDINGS: | | There is no bone marrow edema present. The Achilles tendon has a normal morphology. No | | fluid signal intensity is seen along the Achilles tendinous insertion. There is | | tendinosis of the peroneus longus tendon as it courses beneath the midfoot. Mild | | longitudinal splitting is noted as well. There is mild tendinosis of the peroneus longus | | tendon above the level of the ankle joint. Mild intermediate signal is demonstrated | | along the flexor hallucis longus tendon at the level of the ankle mortise. The extensor | | tendons are preserved. Generalized myositis and severe subcutaneous edema is seen along | | the posterior aspect of the ankle. The anterior and posterior tibiofibular ligaments are | | intact. The lateral and deltoid ligaments are intact with no tear. Mild chondral | | thinning is seen along the tibiotalar articulation. No significant joint effusion is | | present. There is plantar fasciitis with thickening of the plantar fascia measuring 7.9 | | mm image 10 series 7. IMPRESSION: 1. No evidence of Achilles tendinous tear or | | tendinosis.2. There is mild tendinosis of the peroneus longus and flexor hallucis | | longus tendons.3. No evidence of ligamentous injury of the ankle.4. Plantar fasciitis. | | | |along the tibiotalar articulation. No significant joint effusion is present. There is plant ar fasciitis with thickening of the plantar fascia measuring 7.9 mm image 10 series 7. | | | |IMPRESSION: | |1. No evidence of Achilles tendinous tear or tendinosis. | |2. There is mild tendinosis of the peroneus longus and flexor hallucis longus tendons. | |3. No evidence of ligamentous injury of the ankle. | |4. Plantar fasciitis. | | | | | + + POC Glucose (05/08/2018 4:07 PM PDT) + + + + + + | Component | Value | Ref Range | Performed | Pathologist | | | | | At | Signature | + + + + + + | Glucose, | 155 (H)Comment: Testing | 65 - 99 mg/dL | EXTERNAL | | | Fingerstick | performed at [facility];[address] | | LAB | | | | [address];[place] | | | | | | [address] | | | | + + + + + + + + | Specimen | + + | | + + + +---------+ + + | Performing | Address | City/State/Zipcode | Phone Number | | Organization | | | | + +---------+ + + | EXTERNAL LAB | | | | + +---------+ + + ECHO Complete (05/08/2018 3:14 PM PDT) + + | Specimen | + + | | + + + + + | Impressions | Performed At | + + + | 1. Overall left ventricular systolic function is normal with, an EF | | | between 60 - 65 %. 2. There is mild concentric left ventricular | | | hypertrophy. 3. No regional wall motion abnormalities. 4. The right | | | ventricle is normal in size and function. 5. There is mild aortic | | | valve sclerosis without stenosis. 6. There is trace (physiologic) | | | mitral regurgitation. 7. Pulmonary artery systolic pressure could not | | | be assessed due to the absence of adequate TR jet. 8. There is no | | | pericardial effusion. 9. No definite vegetation visualized. | | + + + + + + | Narrative | Performed At | + + + | Patient Name: JOSÉ MIGUEL FLOYD Date of : 1960 | | | Performing Physician: Sharlene Tamez MD | | | | | | INDICATIONS Murmur CONCLUSIONS 1. | | | Overall left ventricular systolic function is normal with, an EF | | | between 60 - 65 %. 2. There is mild concentric left ventricular | | | hypertrophy. 3. No regional wall motion abnormalities. 4. The right | | | ventricle is normal in size and function. 5. There is mild aortic | | | valve sclerosis without stenosis. 6. There is trace (physiologic) | | | mitral regurgitation. 7. Pulmonary artery systolic pressure could not | | | be assessed due to the absence of adequate TR jet. 8. There is no | | | pericardial effusion. 9. No definite vegetation visualized. | | | FINDINGS -------- Study: A 2-dimensional transthoracic | | | echocardiogram with m-mode, spectral and color flow Doppler was | | | perfomed. Left Ventricle: Overall left ventricular systolic function | | | is normal with, an EF between 60 - 65 %. Left Ventricle: The left | | | ventricle cavity size is normal. Left Ventricle: There is mild | | | concentric left ventricular hypertrophy. Left Ventricle: No regional | | | wall motion abnormalities. Left Ventricle: The diastolic filling | | | pattern indicates impaired relaxation consistent with mild dysfunction | | | (Grade I), which may or may not be normal for the patient's age. | | | Right Ventricle: The right ventricle is normal in size and function. | | | Left Atrium: The left atrium is normal in size. Right Atrium: The | | | right atrium is normal in size. Aortic Valve: The aortic valve is | | | trileaflet. Aortic Valve: There is mild aortic valve sclerosis | | | without stenosis. Aortic Valve: There is mild aortic regurgitation. | | | Mitral Valve: The mitral valve is normal. Mitral Valve: There is | | | trace (physiologic) mitral regurgitation. Tricuspid Valve: The | | | tricuspid valve appears structurally normal. Tricuspid Valve: Trace | | | tricuspid regurgitation present. Tricuspid Valve: Pulmonary artery | | | systolic pressure could not be assessed due to the absence of adequate | | | TR jet. Pulmonic Valve: The pulmonic valve is normal. Pericardium: | | | There is no pericardial effusion. IVC/Hepatic Veins: The inferior | | | vena cava is normal in size and collapses > 50 % with sniff, | | | indicating normal central venous pressures. Aorta: The aortic root, | | | ascending aorta and aortic arch are normal. Thrombus: No definite | | | vegetation visualized. MEASUREMENTS RA Area: | | | 12.68 cm2 Ao asc: 3.28 cm Ao sinus: 3.05 cm IVC: 1.16 cm | | | LA Diam: 3.70 cm EDV(Teich): 92.41 ml IVSd: 1.26 cm LVIDd: | | | 4.49 cm LVPWd: 1.26 cm LVOT Diam: 2.04 cm %FS: 32.44 % | | | EF(Teich): 60.89 % ESV(Teich): 36.14 ml IVSs: 1.59 cm | | | LVIDs: 3.03 cm LVPWs: 2.08 cm SV(Teich): 56.27 ml RVIDd: | | | 2.79 cm LAESV(A-L): 46.88 ml LAESV Index (A-L): 22.01 ml/m2 | | | LAAs A2C: 17.39 cm2 LAESV A-L A2C: 48.01 ml LALs A2C: | | | 5.34 cm LAAs A4C: 16.98 cm2 LAESV A-L A4C: 40.42 ml LALs A4C: | | | 6.05 cm TAPSE: 1.71 cm HR: 87.5 BPM AV maxP.62 | | | mmHg AV meanP.37 mmHg AV Vmax: 1.84 m/s AV Vmean: 1.40 | | | m/s AV VTI: 33.69 cm MARTHA Vmax: 2.09 cm2 MARTHA (VTI): 2.32 | | | cm2 AVAI Vmax: 0.00 cm2/m2 AVAI (VTI): 0.00 cm2/m2 LVCI Dopp: | | | 4.92 l/minm2 LVCO Dopp: 10.49 l/min HR: 133.95 BPM LVOT | | | maxP.58 mmHg LVOT meanP.81 mmHg LVSI Dopp: 36.77 | | | ml/m2 LVSV Dopp: 78.33 ml LVOT Vmax: 1.18 m/s LVOT Vmean: | | | 0.77 m/s LVOT VTI: 23.91 cm MV A Pj: 0.87 m/s MV DecT: | | | 464.14 ms MV E Pj: 0.46 m/s MV E/A Ratio: 0.53 MV PHT: | | | 137.04 ms MVA By PHT: 1.60 cm2 MV A Dur: 152.07 ms Septal e': | | | 0.06 m/s Septal E/e': 7.66 Lateral e': 0.07 m/s Lateral | | | E/e': 6.11 HR: 83.14 BPM PV maxP.97 mmHg PV meanPG: | | | 1.05 mmHg PV Vmax: 0.70 m/s PV Vmean: 0.49 m/s PV VTI: | | | 12.53 cm PV maxP.59 mmHg PV Vmax: 1.07 m/s RV S': 0.14 | | | m/s Lithographic Photographer: Authenticated by: Sharlene Tamez MD Report | | | Date/Time: 05-08-2018 16:29:50 | | + + + + --------+ | Procedure Note | + --------+ | Erik Hamm Conversion - 05/03/2019 11:06 AM PDT Patient Name: Tessie FLOYD | | : 1960 Performing Physician: Sharlene Tamez | | INDICATIONS M | | urmur CONCLUSIONS 1. Overall left ventricular systolic function is normal | | with, an EF between 60 - 65 %.2. There is mild concentric left ventricular | | hypertrophy.3. No regional wall motion abnormalities.4. The right ventricle is normal in | | size and function.5. There is mild aortic valve sclerosis without stenosis.6. There is | | trace (physiologic) mitral regurgitation.7. Pulmonary artery systolic pressure could not | | be assessed due to the absence of adequate TR jet.8. There is no pericardial | | effusion.9. No definite vegetation visualized. FINDINGS--------Study: A 2-dimensional | | transthoracic echocardiogram with m-mode, spectral and color flow Doppler was | | perfomed.Left Ventricle: Overall left ventricular systolic function is normal with, an | | EF between 60 - 65 %.Left Ventricle: The left ventricle cavity size is normal.Left | | Ventricle: There is mild concentric left ventricular hypertrophy.Left Ventricle: No | | regional wall motion abnormalities.Left Ventricle: The diastolic filling pattern | | indicates impaired relaxation consistent with mild dysfunction (Grade I), which may or | | may not be normal for the patient's age.Right Ventricle: The right ventricle is normal | | in size and function.Left Atrium: The left atrium is normal in size.Right Atrium: The | | right atrium is normal in size.Aortic Valve: The aortic valve is trileaflet.Aortic | | Valve: There is mild aortic valve sclerosis without stenosis.Aortic Valve: There is mild | | aortic regurgitation.Mitral Valve: The mitral valve is normal.Mitral Valve: There is | | trace (physiologic) mitral regurgitation.Tricuspid Valve: The tricuspid valve appears | | structurally normal.Tricuspid Valve: Trace tricuspid regurgitation present.Tricuspid | | Valve: Pulmonary artery systolic pressure could not be assessed due to the absence of | | adequate TR jet.Pulmonic Valve: The pulmonic valve is normal.Pericardium: There is no | | pericardial effusion.IVC/Hepatic Veins: The inferior vena cava is normal in size and | | collapses > 50 % with sniff, indicating normal central venous pressures.Aorta: The | | aortic root, ascending aorta and aortic arch are normal.Thrombus: No definite vegetation | | visualized. MEASUREMENTS RA Area: 12.68 cm2Ao asc: 3.28 cmAo sinus: | | 3.05 cmIVC: 1.16 cmLA Diam: 3.70 cmEDV(Teich): 92.41 mlIVSd: 1.26 cmLVIDd: | | 4.49 cmLVPWd: 1.26 cmLVOT Diam: 2.04 cm%FS: 32.44 %EF(Teich): 60.89 %ESV(Teich): | | 36.14 mlIVSs: 1.59 cmLVIDs: 3.03 cmLVPWs: 2.08 cmSV(Teich): 56.27 mlRVIDd: | | 2.79 cmLAESV(A-L): 46.88 mlLAESV Index (A-L): 22.01 ml/m2LAAs A2C: 17.39 [id number] | | A-L A2C: 48.01 mlLALs A2C: 5.34 cmLAAs A4C: 16.98 [id number] A-L A4C: 40.42 mlLALs | | A4C: 6.05 cmTAPSE: 1.71 cmHR: 87.5 BPMAV maxP.62 mmHgAV meanP.37 | | mmHgAV Vmax: 1.84 m/Antonio Vmean: 1.40 m/Antonio VTI: 33.69 cmAVA Vmax: 2.09 cm2AVA | | (VTI): 2.32 [id number] Vmax: 0.00 cm2/m2AVAI (VTI): 0.00 cm2/m2LVCI Dopp: 4.92 | | [id number] Dopp: 10.49 l/minHR: 133.95 BPMLVOT maxP.58 mmHgLVOT meanPG: | | 2.81 mmHgLVSI Dopp: 36.77 ml/m2LVSV Dopp: 78.33 mlLVOT Vmax: 1.18 m/sLVOT Vmean: | | 0.77 m/sLVOT VTI: 23.91 cmMV A Pj: 0.87 m/sMV DecT: 464.14 msMV E Pj: 0.46 | | m/sMV E/A Ratio: 0.53MV PHT: 137.04 msMVA By PHT: 1.60 cm2MV A Dur: 152.07 | | msSeptal e': 0.06 m/sSeptal E/e': 7.66Lateral e': 0.07 m/sLateral E/e': 6.11HR: | | 83.14 BPMPV maxP.97 mmHgPV meanP.05 mmHgPV Vmax: 0.70 m/sPV Vmean: | | 0.49 m/sPV VTI: 12.53 cmPV maxP.59 mmHgPV Vmax: 1.07 m/sRV S': 0.14 m/s | | Lithographic Photographer: JRAuthenticated by: Sharlene Tamez [facility] Date/Time: 05-08-2018 16:29:50 | | IMPRESSION: 1. Overall left ventricular systolic function is normal with, an EF between | | 60 - 65 %.2. There is mild concentric left ventricular hypertrophy.3. No regional wall | | motion abnormalities.4. The right ventricle is normal in size and function.5. There is | | mild aortic valve sclerosis without stenosis.6. There is trace (physiologic) mitral | | regurgitation.7. Pulmonary artery systolic pressure could not be assessed due to the | | absence of adequate TR jet.8. There is no pericardial effusion.9. No definite vegetation | | visualized. | |Ao asc: 3.28 cm | |Ao sinus: 3.05 cm | |IVC: 1.16 cm | |LA Diam: 3.70 cm | |EDV(Teich): 92.41 ml | |IVSd: 1.26 cm | |LVIDd: 4.49 cm | |LVPWd: 1.26 cm | |LVOT Diam: 2.04 cm | |%FS: 32.44 % | |EF(Teich): 60.89 % | |ESV(Teich): 36.14 ml | |IVSs: 1.59 cm | |LVIDs: 3.03 cm | |LVPWs: 2.08 cm | |SV(Teich): 56.27 ml | |RVIDd: 2.79 cm | |LAESV(A-L): 46.88 ml | |LAESV Index (A-L): 22.01 ml/m2 | |LAAs A2C: 17.39 cm2 | |LAESV A-L A2C: 48.01 ml | |LALs A2C: 5.34 cm | |LAAs A4C: 16.98 cm2 | |LAESV A-L A4C: 40.42 ml | |LALs A4C: 6.05 cm | |TAPSE: 1.71 cm | |HR: 87.5 BPM | |AV maxP.62 mmHg | |AV meanP.37 mmHg | |AV Vmax: 1.84 m/s | |AV Vmean: 1.40 m/s | |AV VTI: 33.69 cm | |MARTHA Vmax: 2.09 cm2 | |MARTHA (VTI): 2.32 cm2 | |AVAI Vmax: 0.00 cm2/m2 | |AVAI (VTI): 0.00 cm2/m2 | |LVCI Dopp: 4.92 l/minm2 | |LVCO Dopp: 10.49 l/min | |HR: 133.95 BPM | |LVOT maxP.58 mmHg | |LVOT meanP.81 mmHg | |LVSI Dopp: 36.77 ml/m2 | |LVSV Dopp: 78.33 ml | |LVOT Vmax: 1.18 m/s | |LVOT Vmean: 0.77 m/s | |LVOT VTI: 23.91 cm | |MV A Pj: 0.87 m/s | |MV DecT: 464.14 ms | |MV E Pj: 0.46 m/s | |MV E/A Ratio: 0.53 | |MV PHT: 137.04 ms | |MVA By PHT: 1.60 cm2 | |MV A Dur: 152.07 ms | |Septal e': 0.06 m/s | |Septal E/e': 7.66 | |Lateral e': 0.07 m/s | |Lateral E/e': 6.11 | |HR: 83.14 BPM | |PV maxP.97 mmHg | |PV meanP.05 mmHg | |PV Vmax: 0.70 m/s | |PV Vmean: 0.49 m/s | |PV VTI: 12.53 cm | |PV maxP.59 mmHg | |PV Vmax: 1.07 m/s | |RV S': 0.14 m/s | | | |Lithographic Photographer: | |Authenticated by: Sharlene Tamez MD | |Report Date/Time: 05-08-2018 16:29:50 | | | |IMPRESSION: | |1. Overall left ventricular systolic function is normal with, an EF between 60 - 65 %. | |2. There is mild concentric left ventricular hypertrophy. | |3. No regional wall motion abnormalities. | |4. The right ventricle is normal in size and function. | |5. There is mild aortic valve sclerosis without stenosis. | |6. There is trace (physiologic) mitral regurgitation. | |7. Pulmonary artery systolic pressure could not be assessed due to the absence of adequate TR jet. | |8. There is no pericardial effusion. | |9. No definite vegetation visualized. | + --------+ POC Glucose (05/08/2018 12:12 PM PDT) + + + + + + | Component | Value | Ref Range | Performed | Pathologist | | | | | At | Signature | + + + + + + | Glucose, | 153 (H)Comment: Testing | 65 - 99 mg/dL | EXTERNAL | | | Fingerstick | performed at [facility];[address] | | LAB | | | | [address];[place], [place] | | | | | | [address] | | | | + + + + + + + + | Specimen | + + | | + + + +---------+ + + | Performing | Address | City/State/Zipcode | Phone Number | | Organization | | | | + +---------+ + + | EXTERNAL LAB | | | | + +---------+ + + Culture, Blood, 2nd Specimen (05/08/2018 11:29 AM PDT) + + | Specimen | + + | Blood specimen | | (specimen) | + + + + + | Narrative | Performed At | + + + | Specimen Description BLOOD SPECIAL | EXTERNAL LAB | | REQUESTS RT UPPER ARM GRAM STAIN | | | GRAM POSITIVE COCCI IN [place]AIN[place]bnormal | | | SEEN IN ANAEROBIC | | | BOTTLE SMEAR | | | RESULTS CALLED TO AND READ BACK BY: | | | RIK ON 9RP AT 0800 ON 05/09/2018 | | | GRAM POSITIVE COCCI | | | SEEN IN AEROBIC BOTTLE CULTURE | | | ENTEROCOCCUS | | | FAECALISAbnormal | | | Aminoglycosides (except for high-level resistance testing), | | | cephalosporins, clindamycin, and trimethoprim-sulfamethoxazole may | | | appear active in vitro but they are not effective clinically. | | | GROWTH IN TWO OF TWO | | | BOTTLESAbnormal | | | TIME TO DETECTION: | | | 0.78 DAYS | | | Multiple specimens received. Refer to organism susceptibility on prior | | | culture. | | + + + + +---------+ + + | Performing | Address | City/State/Zipcode | Phone Number | | Organization | | | | + +---------+ + + | EXTERNAL LAB | | | | + +---------+ + + Culture, Blood (05/08/2018 11:18 AM PDT) + + | Specimen | + + | Blood specimen | | (specimen) | + + + + + | Narrative | Performed At | + + + | Specimen Description BLOOD SPECIAL | EXTERNAL LAB | | REQUESTS LT FORARM GRAM STAIN | | | GRAM POSITIVE COCCI IN [place]bnormal | | | SEEN IN ANAEROBIC BOTTLE | | | SMEAR RESULTS | | | CALLED TO AND READ BACK BY: | | | EILEEN Linn ON 9RP AT 0520 ON 05/09/2018 [facility] | | | GRAM POSITIVE COCCI IN | | | [place]bnormal | | | SEEN IN AEROBIC BOTTLE CULTURE | | | ENTEROCOCCUS FAECALISAbnormal | | | Aminoglycosides (except for high-level resistance | | | testing), cephalosporins, clindamycin, and | | | trimethoprim-sulfamethoxazole may appear active in vitro but they are | | | not effective clinically. | | | GROWTH IN TWO OF TWO BOTTLESAbnormal | | | TIME TO DETECTION: | | | 0.66 DAYS Suscepibility for - | | | ENTEROCOCCUS FAECALIS Ampicillin | | | SUSCEPTIBLESensitive Penicillin G | | | SUSCEPTIBLESensitive Gentamicin Synergy RESISTANT | | | Resistant Levofloxacin RESISTANT Resistant | | | Streptomycin Synergy RESISTANT Resistant Vancomycin | | | SUSCEPTIBLESensitive | | + + + + +---------+ + + | Performing | Address | City/State/Zipcode | Phone Number | | Organization | | | | + +---------+ + + | EXTERNAL LAB | | | | + +---------+ + + XR Ankle Jose 3 + Vw (05/08/2018 11:05 AM PDT) + + | Specimen | + + | | + + + + + | Impressions | Performed At | + + + | 1. No acute fracture seen. | | + + + + + + | Narrative | Performed At | + + + | JOSÉ MIGUEL FLOYD 1960 XR ANKLE LEFT 05/08/2018 11:05 AM | | | INDICATION: Ankle pain. COMPARISON: None. TECHNIQUE: Left | | | ankle series, 3 views. FINDINGS: No acute fracture, dislocation or | | | subluxation seen. Soft tissues appear grossly unremarkable. Small | | | plantar calcaneal spur seen. | | + + + + + | Procedure Note | + + | Hansel Rad Conversion - 05/03/2019 11:06 AM PDT JOSÉ MIGUEL FLOYD1960XR ANKLE | | LEFT05/08/2018 11:05 AM INDICATION: Ankle pain. COMPARISON: None. TECHNIQUE: Left ankle | | series, 3 views. FINDINGS: No acute fracture, dislocation or subluxation seen. Soft | | tissues appear grossly unremarkable. Small plantar calcaneal spur seen. IMPRESSION: 1. | | No acute fracture seen. | | AM | | | |COMPARISON: None. | | | |TECHNIQUE: Left ankle series, 3 views. | | | |FINDINGS: No acute fracture, dislocation or subluxation seen. Soft tissues appear grossly u nremarkable. Small plantar calcaneal spur seen. | | | |IMPRESSION: | |1. No acute fracture seen. | | | | | + + POC Glucose (05/08/2018 7:35 AM PDT) + + + + + + | Component | Value | Ref Range | Performed | Pathologist | | | | | At | Signature | + + + + + + | Glucose, | 140 (H)Comment: Testing | 65 - 99 mg/dL | EXTERNAL | | | Fingerstick | performed at [facility];[address] | | LAB | | | | [address];[place], [place] | | | | | | [address] | | | | + + + + + + + + | Specimen | + + | | + + + +---------+ + + | Performing | Address | City/State/Zipcode | Phone Number | | Organization | | | | + +---------+ + + | EXTERNAL LAB | | | | + +---------+ + + POC Glucose (05/08/2018 6:26 AM PDT) + + + + + + | Component | Value | Ref Range | Performed | Pathologist | | | | | At | Signature | + + + + + + | Glucose, | 119 (H)Comment: Testing | 65 - 99 mg/dL | EXTERNAL | | | Fingerstick | performed at [facility];[address] | | LAB | | | | [address];[place] | | | | | | [address] | | | | + + + + + + + + | Specimen | + + | | + + + +---------+ + + | Performing | Address | City/State/Zipcode | Phone Number | | Organization | | | | + +---------+ + + | EXTERNAL LAB | | | | + +---------+ + + External Lab: CBC (05/08/2018 4:04 AM PDT) + + +---- + + + | Component | Value | Ref Range | Performed | Pathologist | | | | | At | Signature | + + +---- + + + | WBC | 7.85 | 3.8 0 - 11.00 | EXTERNAL | | | | | K/u L | LAB | | + + +---- + + + | Non- | 7.05 (H) | 4.2 0 - 5.70 | EXTERNAL | | | Red Blood | | M/u L | LAB | | | Cells | | | | | | Counted | | | | | + + +---- + + + | Hemoglobin | 15.6 | 13. 2 - 17.0 | EXTERNAL | | | | | g/d L | LAB | | + + +---- + + + | Hematocrit, | 47.4 | 39. 0 - 50.0 % | EXTERNAL | | | POC | | | LAB | | + + +---- + + + | MCV | 67.2 (L) | 80. 0 - 100.0 fl | EXTERNAL | | | | | | LAB | | + + +---- + + + | MCH | 22.1 (L) | 27. 0 - 34.0 pg | EXTERNAL | | | | | | LAB | | + + +---- + + + | MCHC | 33.0 | 32. 0 - 35.5 | EXTERNAL | | | | | g/d L | LAB | | + + +---- + + + | RDW-CV | 49.9 | 37 - 53 fl | EXTERNAL | | | | | | LAB | | + + +---- + + + | Platelet | 172 | 150 - 400 K/uL | EXTERNAL | | | Count | | | LAB | | | Plasma | | | | | + + +---- + + + | MPV | 8.6 | fl | EXTERNAL | | | | | | LAB | | + + +---- + + + | Differentia | AUTOMATED | | EXTERNAL | | | l Type | | | LAB | | + + +---- + + + | % Segmented | 66.40 | % | EXTERNAL | | | | | | LAB | | | Neutrophils | | | | | + + +---- + + + | % | 21.44 | % | EXTERNAL | | | Lymphocytes | | | LAB | | + + +---- + + + | % Monocytes | 7.85 | % | EXTERNAL | | | | | | LAB | | + + +---- + + + | % | 3.80 | % | EXTERNAL | | | Eosinophils | | | LAB | | + + +---- + + + | % Basophils | 0.51 | % | EXTERNAL | | | | | | LAB | | + + +---- + + + | Absolute | 5.21 | 1.9 0 - 7.40 | EXTERNAL | | | Segmented | | K/u L | LAB | | | Neutrophils | | | | | + + +---- + + + | Absolute | 1.68 | 1.0 0 - 3.90 | EXTERNAL | | | Lymphocytes | | K/u L | LAB | | + + +---- + + + | Absolute | 0.62 | 0.0 0 - 0.80 | EXTERNAL | | | Monocytes | | K/u L | LAB | | + + +---- + + + | Absolute | 0.30 | 0.0 0 - 0.50 | EXTERNAL | | | Eosinophils | | K/u L | LAB | | + + +---- + + + | Absolute | 0.04 | 0.0 0 - 0.10 | EXTERNAL | | | Basophils | | K/u L | LAB | | + + +---- + + + | RBC | 3+Comment: | | EXTERNAL | | | Morphology | MICRO1+ANISONORMAL PLT | | LAB | | | | MORPHTesting performed | | | | | | at [facility], [address] | | | | | [facility], | | | | | | [place] [address] | | | | | |Testing performed at [facility], [address] [facility], [place] [address] | | | | | | | | | | + + +---- + + + + + | Specimen | + + | Blood specimen | | (specimen) | + + + +---------+ + + | Performing | Address | City/State/Zipcode | Phone Number | | Organization | | | | + +---------+ + + | EXTERNAL LAB | | | | + +---------+ + + POC Glucose (05/08/2018 4:04 AM PDT) + + + + + + | Component | Value | Ref Range | Performed | Pathologist | | | | | At | Signature | + + + + + + | Glucose, | 133 (H)Comment: Testing | 65 - 99 mg/dL | EXTERNAL | | | Fingerstick | performed at [facility];[address] | | LAB | | | | [address] [facility];[place], [place] | | | | | | [address] | | | | + + + + + + + + | Specimen | + + | | + + + +---------+ + + | Performing | Address | City/State/Zipcode | Phone Number | | Organization | | | | + +---------+ + + | EXTERNAL LAB | | | | + +---------+ + + Phosphorus (05/08/2018 4:04 AM PDT) + + + + + + | Component | Value | Ref Range | Performed | Pathologist | | | | | At | Signature | + + + + + + | PHOSPHORUS | 4.7Comment: Testing | 2.3 - 4.8 mg/dL | EXTERNAL | | | | performed at [facility], [address] | | LAB | | | | [address], | | | | | | [place] [address] | | | | + + + + + + + + | Specimen | + + | Blood specimen | | (specimen) | + + + +---------+ + + | Performing | Address | City/State/Zipcode | Phone Number | | Organization | | | | + +---------+ + + | EXTERNAL LAB | | | | + +---------+ + + Magnesium (05/08/2018 4:04 AM PDT) + + + + + + | Component | Value | Ref Range | Performed | Pathologist | | | | | At | Signature | + + + + + + | Magnesium | 2.0Comment: Testing | 1.7 - 2.4 mg/dL | EXTERNAL | | | | performed at [facility], [address] | | LAB | | | | [address], | | | | | | [place] [address] | | | | + + + + + + + + | Specimen | + + | Blood specimen | | (specimen) | + + + +---------+ + + | Performing | Address | City/State/Zipcode | Phone Number | | Organization | | | | + +---------+ + + | EXTERNAL LAB | | | | + +---------+ + + Basic Metabolic Panel (05/08/2018 4:04 AM PDT) + + + + + + | Component | Value | Ref Range | Performed | Pathologist | | | | | At | Signature | + + + + + + | Na | 134 (L) | 135 - 145 | EXTERNAL | | | | | mmol/L | LAB | | + + + + + + | K | 4.4 | 3.5 - 4.9 | EXTERNAL | | | | | mmol/L | LAB | | + + + + + + | Cl | 98 (L) | 99 - 109 mmol/L | EXTERNAL | | | | | | LAB | | + + + + + + | CO2 | 27 | 23 - 32 mmol/L | EXTERNAL | | | | | | LAB | | + + + + + + | Anion Gap | 13 | 5 - 20 mmol/L | EXTERNAL | | | | | | LAB | | + + + + + + | Glucose, | 147 (H) | 65 - 99 mg/dL | EXTERNAL | | | Fasting | | | LAB | | + + + + + + | BUN | 9 | 8 - 25 mg/dL | EXTERNAL | | | | | | LAB | | + + + + + + | Creatinine | 0.8 | 0.70 - 1.30 | EXTERNAL | | | | | mg/dL | LAB | | + + + + + + | BUN/Creatin | 11 | | EXTERNAL | | | ine Ratio | | | LAB | | + + + + + + | Calcium | 8.6 | 8.5 - 10.5 | EXTERNAL | | | | | mg/dL | LAB | | + + + + + + | Estimated | >60Comment: GFR <60: | mL/min/1.73m2 | EXTERNAL | | | GFR | CHRONIC KIDNEY DISEASE, | | LAB | | | | IF FOUND OVER A 3 MONTH | | | | | | PERIOD.GFR <15: KIDNEY | | | | | | FAILURE.FOR | | | | | | AMERICANS, MULTIPLY THE | | | | | | CALCULATED GFR BY | | | | | | 1.210.This eGFR is | | | | | | calculated using the | | | | | | MDRD IDMS traceable | | | | | | equation.Testing | | | | | | performed at [facility], [address] | | | | | [facility], | | | | | | [place], [place] [address] | | | | + + + + + + + + | Specimen | + + | Blood specimen | | (specimen) | + + + +---------+ + + | Performing | Address | City/State/Zipcode | Phone Number | | Organization | | | | + +---------+ + + | EXTERNAL LAB | | | | + +---------+ + + POC Glucose (05/08/2018 1:59 AM PDT) + + + + + + | Component | Value | Ref Range | Performed | Pathologist | | | | | At | Signature | + + + + + + | Glucose, | 158 (H)Comment: Testing | 65 - 99 mg/dL | EXTERNAL | | | Fingerstick | performed at [facility];[address] | | [address] | | | [address];[place], [place] | | | | | | [address] | | | | + + + + + + + + | Specimen | + + | | + + + +---------+ + + | Performing | Address | City/State/Zipcode | Phone Number | | Organization | | | | + +---------+ + + | EXTERNAL LAB | | | | + +---------+ + + POC Glucose (05/08/2018 12:12 AM PDT) + + + + + + | Component | Value | Ref Range | Performed | Pathologist | | | | | At | Signature | + + + + + + | Glucose, | 184 (H)Comment: Testing | 65 - 99 mg/dL | EXTERNAL | | | Fingerstick | performed at [facility];[address] | | LAB | | | | [address];[place], [place] | | | | | | [address] | | | | + + + + + + + + | Specimen | + + | | + + + +---------+ + + | Performing | Address | City/State/Zipcode | Phone Number | | Organization | | | | + +---------+ + + | EXTERNAL LAB | | | | + +---------+ + + POC Glucose (05/07/2018 10:08 PM PDT) + + + + + + | Component | Value | Ref Range | Performed | Pathologist | | | | | At | Signature | + + + + + + | Glucose, | 211 (H)Comment: Testing | 65 - 99 mg/dL | EXTERNAL | | | Fingerstick | performed at [facility];[address] | | LAB | | | | [address];[place] | | | | | | [id number] | | | | + + + + + + + + | Specimen | + + | | + + + +---------+ + + | Performing | Address | City/State/Zipcode | Phone Number | | Organization | | | | + +---------+ + + | EXTERNAL LAB | | | | + +---------+ + + POC Glucose (05/07/2018 8:21 PM PDT) + + + + + + | Component | Value | Ref Range | Performed | Pathologist | | | | | At | Signature | + + + + + + | Glucose, | 179 (H)Comment: Testing | 65 - 99 mg/dL | EXTERNAL | | | Fingerstick | performed at [facility];[address] | | LAB | | | | [address];[place] | | | | | | [address] | | | | + + + + + + + + | Specimen | + + | | + + + +---------+ + + | Performing | Address | City/State/Zipcode | Phone Number | | Organization | | | | + +---------+ + + | EXTERNAL LAB | | | | + +---------+ + + CT Lumbar Spine wo Contrast (05/07/2018 6:22 PM PDT) + + | Specimen | + + | | + + + + + | Impressions | Performed At | + + + | 1. Osseous erosion of the L4-L5 endplates consistent with discitis | | | osteomyelitis. 2. Potential impingement of the right L1, L2 and | | | bilateral L4 nerve root as discussed above. | | + + + + + + | Narrative | Performed At | + + + | OJSÉ MIGUEL FLOYD 1960 58 years Male 05/07/2018 6:[address] | | | LUMBAR SPINE WO CONTRAST INDICATION: Back pain COMPARISON: | | | MRI, 05/07/2018 TECHNIQUE: CT scan of the lumbar spine without | | | contrast.1.5-mm thick helically acquired axial images were performed | | | of the lumbar spine in soft tissue and bone algorithm. Coronal and | | | sagittal reconstructions were performed at 2 mm thick slices. Dose | | | reduction techniques were used including automated exposure control, | | | iterative reconstruction technique, and/or automated adjustable mAs | | | based on patient size. FINDINGS: Osseous erosions are seen along | | | the disc spaces of L4-L5. There is a mild levoscoliotic curvature of | | | the lumbar spine with a Atkins angle of 22 degrees centered at L1-L2. | | | Moderate degenerative disc disease of the lumbar spine is present. | | | Bilateral chronic appearing pars defects are present at L5. There is | | | severe disc space narrowing at L1-L2 and L2-L3, similar to prior | | | study. There is fatty atrophy of the left lower paraspinous | | | musculature. There is mild calcification of the abdominal aorta. There | | | appears to be a punctate 1 mm nonobstructive calculus along the lower | | | pole of the right kidney. Findings by level: T10-T11: A mild | | | circumferential disc is present contributing to mild spinal canal | | | stenosis. The bilateral subarticular recess appears mildly stenotic. | | | There appears to be moderate left neural foraminal stenosis. | | | T11-T12: A mild circumferential disc is present contributing to | | | minimal spinal stenosis. The neural foramen are widely patent. | | | T12-L1: A mild circumferential disc is present contributing to mild | | | spinal canal and bilateral subarticular recess stenosis. This is | | | similar to the previous study. The right neural foramen is minimally | | | narrowed. L1-L2: There is a moderate circumferential disc with | | | severe right and moderate left subarticular recess stenosis. This may | | | result in impingement of the transiting right L2 nerve root. There | | | appears to be severe right and mild left neural foraminal stenosis | | | with potential impingement of the exiting right L1 nerve root. | | | L2-L3: A moderate circumferential disc is present. There appears to be | | | moderate bilateral subarticular recess stenosis. Mild spinal canal | | | narrowing is present. There is severe right and moderate left neural | | | foraminal narrowing with potential impingement of the exiting right | | | L2 nerve root. L3-L4: A mild circumferential disc is present with | | | mild bilateral facet hypertrophy. There is mild spinal canal and | | | bilateral subarticular recess stenosis. The bilateral neural foramen | | | are moderately stenotic. L4-L5: A moderate circumferential disc is | | | noted with moderate bilateral ligamentum flavum thickening. There is | | | mild bilateral subarticular recess stenosis. Complete effacement of | | | the fat is seen along the bilateral neural foramen that may suggest | | | impingement of the exiting bilateral L4 nerve root. L5-S1: A mild | | | circumferential disc is present with moderate bilateral facet | | | arthropathy. The bilateral neural foramen are minimally narrowed. | | + + + + + | Procedure Note | + + | Hansel, Rad Conversion - 05/03/2019 11:06 AM PDT JOSÉ MIGUEL [id number] years | | Male05/07/2018 6:22 PMCT LUMBAR SPINE WO CONTRAST INDICATION: Back pain COMPARISON: MRI, | | 05/07/2018 TECHNIQUE: CT scan of the lumbar spine without contrast.1.5-mm thick helically | | acquired axial images were performed of the lumbar spine in soft tissue and bone | | algorithm. Coronal and sagittal reconstructions were performed at 2 mm thick slices. | | Dose reduction techniques were used including automated exposure control, iterative | | reconstruction technique, and/or automated adjustable mAs based on patient size. | | FINDINGS: Osseous erosions are seen along the disc spaces of L4-L5. There is a mild | | levoscoliotic curvature of the lumbar spine with a Atkins angle of 22 degrees centered at | | L1-L2. Moderate degenerative disc disease of the lumbar spine is present. Bilateral | | chronic appearing pars defects are present at L5. There is severe disc space narrowing | | at L1-L2 and L2-L3, similar to prior study. There is fatty atrophy of the left lower | | paraspinous musculature. There is mild calcification of the abdominal aorta. There | | appears to be a punctate 1 mm nonobstructive calculus along the lower pole of the right | | kidney. Findings by level: T10-T11: A mild circumferential disc is present contributing | | to mild spinal canal stenosis. The bilateral subarticular recess appears mildly | | stenotic. There appears to be moderate left neural foraminal stenosis. T11-T12: A mild | | circumferential disc is present contributing to minimal spinal stenosis. The neural | | foramen are widely patent. T12-L1: A mild circumferential disc is present contributing | | to mild spinal canal and bilateral subarticular recess stenosis. This is similar to the | | previous study. The right neural foramen is minimally narrowed. L1-L2: There is a | | moderate circumferential disc with severe right and moderate left subarticular recess | | stenosis. This may result in impingement of the transiting right L2 nerve root. There | | appears to be severe right and mild left neural foraminal stenosis with potential | | impingement of the exiting right L1 nerve root. L2-L3: A moderate circumferential disc | | is present. There appears to be moderate bilateral subarticular recess stenosis. Mild | | spinal canal narrowing is present. There is severe right and moderate left neural | | foraminal narrowing with potential impingement of the exiting right L2 nerve root. | | L3-L4: A mild circumferential disc is present with mild bilateral facet hypertrophy. | | There is mild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 Glucose, | 170 (H)Comment: Testing | 65 - 99 mg/dL | EXTERNAL | | | Fingerstick | performed at [facility];[address] | | LAB | | | | [address];[place] | | | | | | [address] | | | | + + + + + + + + | Specimen | + + | | + + + +---------+ + + | Performing | Address | City/State/Zipcode | Phone Number | | Organization | | | | + +---------+ + + | EXTERNAL LAB | | | | + +---------+ + + POC Glucose (05/06/2018 4:25 PM PDT) + + + + + + | Component | Value | Ref Range | Performed | Pathologist | | | | | At | Signature | + + + + + + | Glucose, | 147 (H)Comment: Testing | 65 - 99 mg/dL | EXTERNAL | | | Fingerstick | performed at [facility];[address] | | LAB | | | | [address];[place] | | | | | | [address] | | | | + + + + + + + + | Specimen | + + | | + + + +---------+ + + | Performing | Address | City/State/Zipcode | Phone Number | | Organization | | | | + +---------+ + + | EXTERNAL LAB | | | | + +---------+ + + POC Glucose (05/06/2018 3:26 PM PDT) + + + + + + | Component | Value | Ref Range | Performed | Pathologist | | | | | At | Signature | + + + + + + | Glucose, | 132 (H)Comment: Testing | 65 - 99 mg/dL | EXTERNAL | | | Fingerstick | performed at [facility];[address] | | LAB | | | | [address];[place] | | | | | | [address] | | | | + + + + + + + + | Specimen | + + | | + + + +---------+ + + | Performing | Address | City/State/Zipcode | Phone Number | | Organization | | | | + +---------+ + + | EXTERNAL LAB | | | | + +---------+ + + POC Glucose (05/06/2018 2:06 PM PDT) + + + + + + | Component | Value | Ref Range | Performed | Pathologist | | | | | At | Signature | + + + + + + | Glucose, | 125 (H)Comment: Testing | 65 - 99 mg/dL | EXTERNAL | | | Fingerstick | performed at [facility];[address] | | LAB | | | | [address];[place] | | | | | | [address] | | | | + + + + + + + + | Specimen | + + | | + + + +---------+ + + | Performing | Address | City/State/Zipcode | Phone Number | | Organization | | | | + +---------+ + + | EXTERNAL LAB | | | | + +---------+ + + POC Glucose (05/06/2018 12:48 PM PDT) + + + + + + | Component | Value | Ref Range | Performed | Pathologist | | | | | At | Signature | + + + + + + | Glucose, | 98Comment: Testing | 65 - 99 mg/dL | EXTERNAL | | | Fingerstick | performed at [facility];[address] | | LAB | | | | [address];[place] | | | | | | [address] | | | | + + + + + + + + | Specimen | + + | | + + + +---------+ + + | Performing | Address | City/State/Zipcode | Phone Number | | Organization | | | | + +---------+ + + | EXTERNAL LAB | | | | + +---------+ + + XR Lumbar Spine 2 or 3 Vw (05/06/2018 12:34 PM PDT) + + | Specimen | + + | | + + + + + | Impressions | Performed At | + + + | 1. Fracture deformity of the superior endplate of L5 with | | | approximately 50% loss in anterior height. 2. Ill-defined margins | | | of the inferior endplate of L4 which may relate to fracture deformity | | | with bony reabsorption, although infectious process could also be | | | consideration. MRI with and without contrast could be performed to | | | further evaluate. 3. Mild compression deformity L2 vertebral body. | | | 4. Multilevel degenerative change of the lumbar spine. 5. | | | Bilateral pars defects of L5 on S1. | | + + + + + + | Narrative | Performed At | + + + | JOSÉ MIGUEL FLOYD 1960 58 years Male XR LUMBAR SPINE LIMITED | | | 2-3 VIEW 05/06/2018 12:34 PM INDICATION: Back pain. | | | COMPARISON: None TECHNIQUE: Lumbar spine series, 2 views | | | FINDINGS: Compression deformity of the superior endplate of L5 | | | ill-defined appearance to the inferior endplate of L4. Bilateral pars | | | defects of L5. Mild retrolisthesis of L3 on L4 with mild anterior | | | spinal listhesis of L4 on L5. Severe disc space narrowing with | | | endplate spurring at L2-3 and to lesser extent L1-2. Mild fracture | | | deformity the inferior endplate of L2. Moderate disc space narrowing | | | and endplate spurring within the visualized lower thoracic spine. | | | Sacroiliac joints are unremarkable. | | + + + + + | Procedure Note | + + | Erik Hamm Conversion - 05/03/2019 11:06 AM LOIS FLOYD[id number] years | | MaleXR LUMBAR SPINE LIMITED 2-3 VIEW05/06/2018 12:34 PM INDICATION: Back pain. | | COMPARISON: None TECHNIQUE: Lumbar spine series, 2 views FINDINGS: Compression deformity | | of the superior endplate of L5 ill-defined appearance to the inferior endplate of L4. | | Bilateral pars defects of L5. Mild retrolisthesis of L3 on L4 with mild anterior spinal | | listhesis of L4 on L5. Severe disc space narrowing with endplate spurring at L2-3 and to | | lesser extent L1-2. Mild fracture deformity the inferior endplate of L2. Moderate disc | | space narrowing and endplate spurring within the visualized lower thoracic spine. | | Sacroiliac joints are unremarkable. IMPRESSION: 1. Fracture deformity of the superior | | endplate of L5 with approximately 50% loss in anterior height.2. Ill-defined margins of | | the inferior endplate of L4 which may relate to fracture deformity with bony | | reabsorption, although infectious process could also be consideration. MRI with and | | without contrast could be performed to further evaluate.3. Mild compression deformity | | L2 vertebral body.4. Multilevel degenerative change of the lumbar spine.5. Bilateral | | pars defects of L5 on S1. | | PM | |1. Fracture deformity of the superior endplate of L5 with approximately 50% loss in anteri or height. | |2. Ill-defined margins of the inferior endplate of L4 which may relate to fracture deformi ty with bony reabsorption, although infectious process could also be consideration. MRI with and without contrast could be performed to further evaluate. | |3. Mild compression deformity L2 vertebral body. | |4. Multilevel degenerative change of the lumbar spine. | |5. Bilateral pars defects of L5 on S1. | | | | | + + POC Glucose (05/06/2018 12:12 PM PDT) + + + + + + | Component | Value | Ref Range | Performed | Pathologist | | | | | At | Signature | + + + + + + | Glucose, | 85Comment: Testing | 65 - 99 mg/dL | EXTERNAL | | | Fingerstick | performed at [facility];[address] | | LAB | | | | [address];[place], [place] | | | | | | [address] | | | | + + + + + + + + | Specimen | + + | | + + + +---------+ + + | Performing | Address | City/State/Zipcode | Phone Number | | Organization | | | | + +---------+ + + | EXTERNAL LAB | | | | + +---------+ + + POC Glucose (05/06/2018 11:22 AM PDT) + + + + + + | Component | Value | Ref Range | Performed | Pathologist | | | | | At | Signature | + + + + + + | Glucose, | 93Comment: Testing | 65 - 99 mg/dL | EXTERNAL | | | Fingerstick | performed at [facility];[address] | | LAB | | | | [address];[place], [place] | | | | | | [address] | | | | + + + + + + + + | Specimen | + + | | + + + +---------+ + + | Performing | Address | City/State/Zipcode | Phone Number | | Organization | | | | + +---------+ + + | EXTERNAL LAB | | | | + +---------+ + + POC Glucose (05/06/2018 10:12 AM PDT) + + + + + + | Component | Value | Ref Range | Performed | Pathologist | | | | | At | Signature | + + + + + + | Glucose, | 118 (H)Comment: Testing | 65 - 99 mg/dL | EXTERNAL | | | Fingerstick | performed at [facility];[address] | | LAB | | | | [address];[place], [place] | | | | | | [address] | | | | + + + + + + + + | Specimen | + + | | + + + +---------+ + + | Performing | Address | City/State/Zipcode | Phone Number | | Organization | | | | + +---------+ + + | EXTERNAL LAB | | | | + +---------+ + + POC Glucose (05/06/2018 9:01 AM PDT) + + + + + + | Component | Value | Ref Range | Performed | Pathologist | | | | | At | Signature | + + + + + + | Glucose, | 113 (H)Comment: Testing | 65 - 99 mg/dL | EXTERNAL | | | Fingerstick | performed at [facility];[address] | | LAB | | | | [address];[place] | | | | | | [address] | | | | + + + + + + + + | Specimen | + + | | + + + +---------+ + + | Performing | Address | City/State/Zipcode | Phone Number | | Organization | | | | + +---------+ + + | EXTERNAL LAB | | | | + +---------+ + + POC Glucose (05/06/2018 7:56 AM PDT) + + + + + + | Component | Value | Ref Range | Performed | Pathologist | | | | | At | Signature | + + + + + + | Glucose, | 76Comment: Testing | 65 - 99 mg/dL | EXTERNAL | | | Fingerstick | performed at [facility];[address] | | LAB | | | | [address];[place], [place] | | | | | | [address] | | | | + + + + + + + + | Specimen | + + | | + + + +---------+ + + | Performing | Address | City/State/Zipcode | Phone Number | | Organization | | | | + +---------+ + + | EXTERNAL LAB | | | | + +---------+ + + POC Glucose (05/06/2018 7:27 AM PDT) + + + + + + | Component | Value | Ref Range | Performed | Pathologist | | | | | At | Signature | + + + + + + | Glucose, | 82Comment: Testing | 65 - 99 mg/dL | EXTERNAL | | | Fingerstick | performed at [facility];[address] | | LAB | | | | [address];[place], [place] | | | | | | [address] | | | | + + + + + + + + | Specimen | + + | | + + + +---------+ + + | Performing | Address | City/State/Zipcode | Phone Number | | Organization | | | | + +---------+ + + | EXTERNAL LAB | | | | + +---------+ + + POC Glucose (05/06/2018 6:08 AM PDT) + + + + + + | Component | Value | Ref Range | Performed | Pathologist | | | | | At | Signature | + + + + + + | Glucose, | 93Comment: Testing | 65 - 99 mg/dL | EXTERNAL | | | Fingerstick | performed at [facility];[address] | | LAB | | | | [address];[place], [place] | | | | | | [address] | | | | + + + + + + + + | Specimen | + + | | + + + +---------+ + + | Performing | Address | City/State/Zipcode | Phone Number | | Organization | | | | + +---------+ + + | EXTERNAL LAB | | | | + +---------+ + + POC Glucose (05/06/2018 5:14 AM PDT) + + + + + + | Component | Value | Ref Range | Performed | Pathologist | | | | | At | Signature | + + + + + + | Glucose, | 92Comment: Testing | 65 - 99 mg/dL | EXTERNAL | | | Fingerstick | performed at [facility];[address] | | LAB | | | | [address];[place] | | | | | | [address] | | | | + + + + + + + + | Specimen | + + | | + + + +---------+ + + | Performing | Address | City/State/Zipcode | Phone Number | | Organization | | | | + +---------+ + + | EXTERNAL LAB | | | | + +---------+ + + POC Glucose (05/06/2018 4:03 AM PDT) + + + + + + | Component | Value | Ref Range | Performed | Pathologist | | | | | At | Signature | + + + + + + | Glucose, | 77Comment: Testing | 65 - 99 mg/dL | EXTERNAL | | | Fingerstick | performed at [facility];[address] | | LAB | | | | [address];[place] | | | | | | [address] | | | | + + + + + + + + | Specimen | + + | | + + + +---------+ + + | Performing | Address | City/State/Zipcode | Phone Number | | Organization | | | | + +---------+ + + | EXTERNAL LAB | | | | + +---------+ + + External Lab: CBC (05/06/2018 4:00 AM PDT) + + + + + + | Component | Value | Ref Range | Performed | Pathologist | | | | | At | Signature | + + + + + + | WBC | 8.72 | 3.80 - 11.00 | EXTERNAL | | | | | K/uL | LAB | | + + + + + + | Non- | 6.83 (H) | 4.20 - 5.70 | EXTERNAL | | | Red Blood | | M/uL | LAB | | | Cells | | | | | | Counted | | | | | + + + + + + | Hemoglobin | 15.0 | 13.2 - 17.0 | EXTERNAL | | | | | g/dL | LAB | | + + + + + + | Hematocrit, | 47.1 | 39.0 - 50.0 % | EXTERNAL | | | POC | | | LAB | | + + + + + + | MCV | 68.9 (L) | 80.0 - 100.0 fl | EXTERNAL | | | | | | LAB | | + + + + + + | MCH | 21.9 (L) | 27.0 - 34.0 pg | EXTERNAL | | | | | | LAB | | + + + + + + | MCHC | 31.8 (L) | 32.0 - 35.5 | EXTERNAL | | | | | g/dL | LAB | | + + + + + + | RDW-CV | 48.6 | 37 - 53 fl | EXTERNAL | | | | | | LAB | | + + + + + + | Platelet | 162 | 150 - 400 K/uL | EXTERNAL | | | Count | | | LAB | | | Plasma | | | | | + + + + + + | MPV | 8.6 | fl | EXTERNAL | | | | | | LAB | | + + + + + + | Differentia | AUTOMATED | | EXTERNAL | | | l Type | | | LAB | | + + + + + + | % Segmented | 66.48 | % | EXTERNAL | | | | | | LAB | | | Neutrophils | | | | | + + + + + + | % | 20.96 | % | EXTERNAL | | | Lymphocytes | | | LAB | | + + + + + + | % Monocytes | 8.61 | % | EXTERNAL | | | | | | LAB | | + + + + + + | % | 3.12 | % | EXTERNAL | | | Eosinophils | | | LAB | | + + + + + + | % Basophils | 0.83 | % | EXTERNAL | | | | | | LAB | | + + + + + + | Absolute | 5.80 | 1.90 - 7.40 | EXTERNAL | | | Segmented | | K/uL | LAB | | | Neutrophils | | | | | + + + + + + | Absolute | 1.83 | 1.00 - 3.90 | EXTERNAL | | | Lymphocytes | | K/uL | LAB | | + + + + + + | Absolute | 0.75 | 0.00 - 0.80 | EXTERNAL | | | Monocytes | | K/uL | LAB | | + + + + + + | Absolute | 0.27 | 0.00 - 0.50 | EXTERNAL | | | Eosinophils | | K/uL | LAB | | + + + + + + | Absolute | 0.07 | 0.00 - 0.10 | EXTERNAL | | | Basophils | | K/uL | LAB | | + + + + + + | RBC | 3+Comment: | | EXTERNAL | | | Morphology | MICRO1+ANISO1+HYPONORMAL | | LAB | | | | PLT MORPHTesting | | | | | | performed at [facility];[address] | | | | | | [facility];[place], [place] | | | | | | [address] | | | | | |HYPO | | | | | |NORMAL PLT MORPH | | | | | |Testing performed at [facility];[address] [facility];[place] [address] | | | | | | | [...] | | | + +---------+ + + Phosphorus (05/06/2018 4:00 AM PDT) + + + + + + | Component | Value | Ref Range | Performed | Pathologist | | | | | At | Signature | + + + + + + | PHOSPHORUS | 4.3Comment: Testing | 2.3 - 4.8 mg/dL | EXTERNAL | | | | performed at [facility];[address] | | LAB | | | | [facility], [place] | | | | | | [address] | | | | + + + + + + + + | Specimen | + + | Blood specimen | | (specimen) | + + + +---------+ + + | Performing | Address | City/State/Zipcode | Phone Number | | Organization | | | | + +---------+ + + | EXTERNAL LAB | | | | + +---------+ + + Magnesium (05/06/2018 4:00 AM PDT) + + + + + + | Component | Value | Ref Range | Performed | Pathologist | | | | | At | Signature | + + + + + + | Magnesium | 2.2Comment: Testing | 1.7 - 2.4 mg/dL | EXTERNAL | | | | performed at [facility];[address] | | LAB | | | | [address];[place], [place] | | | | | | [address] | | | | + + + + + + + + | Specimen | + + | Blood specimen | | (specimen) | + + + +---------+ + + | Performing | Address | City/State/Zipcode | Phone Number | | Organization | | | | + +---------+ + + | EXTERNAL LAB | | | | + +---------+ + + Basic Metabolic Panel (05/06/2018 4:00 AM PDT) + + + + + + | Component | Value | Ref Range | Performed | Pathologist | | | | | At | Signature | + + + + + + | Na | 139 | 135 - 145 | EXTERNAL | | | | | mmol/L | LAB | | + + + + + + | K | 4.3 | 3.5 - 4.9 | EXTERNAL | | | | | mmol/L | LAB | | + + + + + + | Cl | 103 | 99 - 109 mmol/L | EXTERNAL | | | | | | LAB | | + + + + + + | CO2 | 25 | 23 - 32 mmol/L | EXTERNAL | | | | | | LAB | | + + + + + + | Anion Gap | 15 | 5 - 20 mmol/L | EXTERNAL | | | | | | LAB | | + + + + + + | Glucose, | 75 | 65 - 99 mg/dL | EXTERNAL | | | Fasting | | | LAB | | + + + + + + | BUN | 7 (L) | 8 - 25 mg/dL | EXTERNAL | | | | | | LAB | | + + + + + + | Creatinine | 0.51 (L) | 0.70 - 1.30 | EXTERNAL | | | | | mg/dL | LAB | | + + + + + + | BUN/Creatin | 13 | | EXTERNAL | | | ine Ratio | | | LAB | | + + + + + + | Calcium | 8.1 (L) | 8.5 - 10.5 | EXTERNAL | | | | | mg/dL | LAB | | + + + + + + | Estimated | >60Comment: GFR <60: | mL/min/1.73m2 | EXTERNAL | | | GFR | CHRONIC KIDNEY DISEASE, | | LAB | | | | IF FOUND OVER A 3 MONTH | | | | | | PERIOD.GFR <15: KIDNEY | | | | | | FAILURE.FOR | | | | | | AMERICANS, MULTIPLY THE | | | | | | CALCULATED GFR BY | | | | | | 1.210.This eGFR is | | | | | | calculated using the | | | | | | MDRD IDMS traceable | | | | | | equation.Testing | | | | | | performed at [facility];[address] | | | | | | [facility];[place], [place] | | | | | | [address] | | | | + + + + + + + + | Specimen | + + | Blood specimen | | (specimen) | + + + +---------+ + + | Performing | Address | City/State/Zipcode | Phone Number | | Organization | | | | + +---------+ + + | EXTERNAL LAB | | | | + +---------+ + + POC Glucose (05/06/2018 3:10 AM PDT) + + + + + + | Component | Value | Ref Range | Performed | Pathologist | | | | | At | Signature | + + + + + + | Glucose, | 99Comment: Testing | 65 - 99 mg/dL | EXTERNAL | | | Fingerstick | performed at [facility];[address] | | LAB | | | | [address];[place] | | | | | | [address] | | | | + + + + + + + + | Specimen | + + | | + + + +---------+ + + | Performing | Address | City/State/Zipcode | Phone Number | | Organization | | | | + +---------+ + + | EXTERNAL LAB | | | | + +---------+ + + POC Glucose (05/06/2018 2:11 AM PDT) + + + + + + | Component | Value | Ref Range | Performed | Pathologist | | | | | At | Signature | + + + + + + | Glucose, | 64 (L)Comment: Testing | 65 - 99 mg/dL | EXTERNAL | | | Fingerstick | performed at [facility];[address] | | LAB | | | | [address];[place], [place] | | | | | | [address] | | | | + + + + + + + + | Specimen | + + | | + + + +---------+ + + | Performing | Address | City/State/Zipcode | Phone Number | | Organization | | | | + +---------+ + + | EXTERNAL LAB | | | | + +---------+ + + POC Glucose (05/06/2018 12:51 AM PDT) + + + + + + | Component | Value | Ref Range | Performed | Pathologist | | | | | At | Signature | + + + + + + | Glucose, | 110 (H)Comment: Testing | 65 - 99 mg/dL | EXTERNAL | | | Fingerstick | performed at [facility];[address] | [address] | | | | [address];[place] | | | | | | [address] | | | | + + + + + + + + | Specimen | + + | | + + + +---------+ + + | Performing | Address | City/State/Zipcode | Phone Number | | Organization | | | | + +---------+ + + | EXTERNAL LAB | | | | + +---------+ + + POC Glucose (05/06/2018 12:08 AM PDT) + + + + + + | Component | Value | Ref Range | Performed | Pathologist | | | | | At | Signature | + + + + + + | Glucose, | 64 (L)Comment: Testing | 65 - 99 mg/dL | EXTERNAL | | | Fingerstick | performed at [facility];[address] | | LAB | | | | [address];[place], [place] | | | | | | [address] | | | | + + + + + + + + | Specimen | + + | | + + + +---------+ + + | Performing | Address | City/State/Zipcode | Phone Number | | Organization | | | | + +---------+ + + | EXTERNAL LAB | | | | + +---------+ + + POC Glucose (05/05/2018 11:07 PM PDT) + + + + + + | Component | Value | Ref Range | Performed | Pathologist | | | | | At | Signature | + + + + + + | Glucose, | 71Comment: Testing | 65 - 99 mg/dL | EXTERNAL | | | Fingerstick | performed at [facility];[address] | | LAB | | | | [address];[place] | | | | | | [address] | | | | + + + + + + + + | Specimen | + + | | + + + +---------+ + + | Performing | Address | City/State/Zipcode | Phone Number | | Organization | | | | + +---------+ + + | EXTERNAL LAB | | | | + +---------+ + + POC Glucose (05/05/2018 10:20 PM PDT) + + + + + + | Component | Value | Ref Range | Performed | Pathologist | | | | | At | Signature | + + + + + + | Glucose, | 144 (H)Comment: Testing | 65 - 99 mg/dL | EXTERNAL | | | Fingerstick | performed at [facility];[address] | | LAB | | | | [address];[place], [place] | | | | | | [address] | | | | + + + + + + + + | Specimen | + + | | + + + +---------+ + + | Performing | Address | City/State/Zipcode | Phone Number | | Organization | | | | + +---------+ + + | EXTERNAL LAB | | | | + +---------+ + + POC Glucose (05/05/2018 9:02 PM PDT) + + + + + + | Component | Value | Ref Range | Performed | Pathologist | | | | | At | Signature | + + + + + + | Glucose, | 76Comment: Testing | 65 - 99 mg/dL | EXTERNAL | | | Fingerstick | performed at [facility];[address] | | LAB | | | | [address];[place] | | | | | | [address] | | | | + + + + + + + + | Specimen | + + | | + + + +---------+ + + | Performing | Address | City/State/Zipcode | Phone Number | | Organization | | | | + +---------+ + + | EXTERNAL LAB | | | | + +---------+ + + Phosphorus (05/05/2018 8:47 PM PDT) + + + + + + | Component | Value | Ref Range | Performed | Pathologist | | | | | At | Signature | + + + + + + | PHOSPHORUS | 4.0Comment: Testing | 2.3 - 4.8 mg/dL | EXTERNAL | | | | performed at [facility];[address] | | LAB | | | | [address];[place], [place] | | | | | | [address] | | | | + + + + + + + + | Specimen | + + | Blood specimen | | (specimen) | + + + +---------+ + + | Performing | Address | City/State/Zipcode | Phone Number | | Organization | | | | + +---------+ + + | EXTERNAL LAB | | | | + +---------+ + + Magnesium (05/05/2018 8:47 PM PDT) + + + + + + | Component | Value | Ref Range | Performed | Pathologist | | | | | At | Signature | + + + + + + | Magnesium | 2.2Comment: Testing | 1.7 - 2.4 mg/dL | EXTERNAL | | | | performed at [facility];[address] | | LAB | | | | [address];[place] | | | | | | [address] | | | | + + + + + + + + | Specimen | + + | Blood specimen | | (specimen) | + + + +---------+ + + | Performing | Address | City/State/Zipcode | Phone Number | | Organization | | | | + +---------+ + + | EXTERNAL LAB | | | | + +---------+ + + Basic Metabolic Panel (05/05/2018 8:47 PM PDT) + + + + + + | Component | Value | Ref Range | Performed | Pathologist | | | | | At | Signature | + + + + + + | Na | 138 | 135 - 145 | EXTERNAL | | | | | mmol/L | LAB | | + + + + + + | K | 3.7 | 3.5 - 4.9 | EXTERNAL | | | | | mmol/L | LAB | | + + + + + + | Cl | 103 | 99 - 109 mmol/L | EXTERNAL | | | | | | LAB | | + + + + + + | CO2 | 28 | 23 - 32 mmol/L | EXTERNAL | | | | | | LAB | | + + + + + + | Anion Gap | 11 | 5 - 20 mmol/L | EXTERNAL | | | | | | LAB | | + + + + + + | Glucose, | 82 | 65 - 99 mg/dL | EXTERNAL | | | Fasting | | | LAB | | + + + + + + | BUN | 7 (L) | 8 - 25 mg/dL | EXTERNAL | | | | | | LAB | | + + + + + + | Creatinine | 0.49 (L) | 0.70 - 1.30 | EXTERNAL | | | | | mg/dL | LAB | | + + + + + + | BUN/Creatin | 14 | | EXTERNAL | | | ine Ratio | | | LAB | | + + + + + + | Calcium | 7.9 (L) | 8.5 - 10.5 | EXTERNAL | | | | | mg/dL | LAB | | + + + + + + | Estimated | >60Comment: GFR <60: | mL/min/1.73m2 | EXTERNAL | | | GFR | CHRONIC KIDNEY DISEASE, | | LAB | | | | IF FOUND OVER A 3 MONTH | | | | | | PERIOD.GFR <15: KIDNEY | | | | | | FAILURE.FOR | | | | | | AMERICANS, MULTIPLY THE | | | | | | CALCULATED GFR BY | | | | | | 1.210.This eGFR is | | | | | | calculated using the | | | | | | MDRD IDMS traceable | | | | | | equation.Testing | | | | | | performed at [facility];[address] | | | | | | [facility];[place], [place] | | | | | | [address] | | | | + + + + + + + + | Specimen | + + | Blood specimen | | (specimen) | + + + +---------+ + + | Performing | Address | City/State/Zipcode | Phone Number | | Organization | | | | + +---------+ + + | EXTERNAL LAB | | | | + +---------+ + + POC Glucose (05/05/2018 8:36 PM PDT) + + + + + + | Component | Value | Ref Range | Performed | Pathologist | | | | | At | Signature | + + + + + + | Glucose, | 100 (H)Comment: Testing | 65 - 99 mg/dL | EXTERNAL | | | Fingerstick | performed at [facility];[address] | | LAB | | | | [address];[place], [place] | | | | | | [address] | | | | + + + + + + + + | Specimen | + + | | + + + +---------+ + + | Performing | Address | City/State/Zipcode | Phone Number | | Organization | | | | + +---------+ + + | EXTERNAL LAB | | | | + +---------+ + + POC Glucose (05/05/2018 7:55 PM PDT) + + + + + + | Component | Value | Ref Range | Performed | Pathologist | | | | | At | Signature | + + + + + + | Glucose, | 56 (L)Comment: Testing | 65 - 99 mg/dL | EXTERNAL | | | Fingerstick | performed at [facility];[address] | | LAB | | | | [address];[place], [place] | | | | | | [address] | | | | + + + + + + + + | Specimen | + + | | + + + +---------+ + + | Performing | Address | City/State/Zipcode | Phone Number | | Organization | | | | + +---------+ + + | EXTERNAL LAB | | | | + +---------+ + + POC Glucose (05/05/2018 6:30 PM PDT) + + + + + + | Component | Value | Ref Range | Performed | Pathologist | | | | | At | Signature | + + + + + + | Glucose, | 131 (H)Comment: Testing | 65 - 99 mg/dL | EXTERNAL | | | Fingerstick | performed at [facility];[address] | | LAB | | | | [address];[place] | | | | | | [address] | | | | + + + + + + + + | Specimen | + + | | + + + +---------+ + + | Performing | Address | City/State/Zipcode | Phone Number | | Organization | | | | + +---------+ + + | EXTERNAL LAB | | | | + +---------+ + + POC Glucose (05/05/2018 5:16 PM PDT) + + + + + + | Component | Value | Ref Range | Performed | Pathologist | | | | | At | Signature | + + + + + + | Glucose, | 144 (H)Comment: Testing | 65 - 99 mg/dL | EXTERNAL | | | Fingerstick | performed at [facility];[address] | | LAB | | | | [address];[place] | | | | | | [address] | | | | + + + + + + + + | Specimen | + + | | + + + +---------+ + + | Performing | Address | City/State/Zipcode | Phone Number | | Organization | | | | + +---------+ + + | EXTERNAL LAB | | | | + +---------+ + + POC Glucose (05/05/2018 5:04 PM PDT) + + + + + + | Component | Value | Ref Range | Performed | Pathologist | | | | | At | Signature | + + + + + + | Glucose, | 113 (H)Comment: Testing | 65 - 99 mg/dL | EXTERNAL | | | Fingerstick | performed at [facility];[address] | | LAB | | | | [address];[place] | | | | | | [address] | | | | + + + + + + + + | Specimen | + + | | + + + +---------+ + + | Performing | Address | City/State/Zipcode | Phone Number | | Organization | | | | + +---------+ + + | EXTERNAL LAB | | | | + +---------+ + + POC Glucose (05/05/2018 4:25 PM PDT) + + + + + + | Component | Value | Ref Range | Performed | Pathologist | | | | | At | Signature | + + + + + + | Glucose, | 73Comment: Testing | 65 - 99 mg/dL | EXTERNAL | | | Fingerstick | performed at [facility];[address] | | LAB | | | | [address];[place], [place] | | | | | | [address] | | | | + + + + + + + + | Specimen | + + | | + + + +---------+ + + | Performing | Address | City/State/Zipcode | Phone Number | | Organization | | | | + +---------+ + + | EXTERNAL LAB | | | | + +---------+ + + POC Glucose (05/05/2018 3:31 PM PDT) + + + + + + | Component | Value | Ref Range | Performed | Pathologist | | | | | At | Signature | + + + + + + | Glucose, | 128 (H)Comment: Testing | 65 - 99 mg/dL | EXTERNAL | | | Fingerstick | performed at [facility];[address] | | LAB | | | | [address];[place] | | | | | | [address] | | | | + + + + + + + + | Specimen | + + | | + + + +---------+ + + | Performing | Address | City/State/Zipcode | Phone Number | | Organization | | | | + +---------+ + + | EXTERNAL LAB | | | | + +---------+ + + POC Glucose (05/05/2018 2:53 PM PDT) + + + + + + | Component | Value | Ref Range | Performed | Pathologist | | | | | At | Signature | + + + + + + | Glucose, | 66Comment: Testing | 65 - 99 mg/dL | EXTERNAL | | | Fingerstick | performed at [facility];[address] | | LAB | | | | [address];[place], [place] | | | | | | [address] | | | | + + + + + + + + | Specimen | + + | | + + + +---------+ + + | Performing | Address | City/State/Zipcode | Phone Number | | Organization | | | | + +---------+ + + | EXTERNAL LAB | | | | + +---------+ + + Phosphorus (05/05/2018 2:17 PM PDT) + + + + + + | Component | Value | Ref Range | Performed | Pathologist | | | | | At | Signature | + + + + + + | PHOSPHORUS | 3.4Comment: Testing | 2.3 - 4.8 mg/dL | EXTERNAL | | | | performed at [facility];[address] | | LAB | | | | [address];[place] | | | | | | [address] | | | | + + + + + + + + | Specimen | + + | Blood specimen | | (specimen) | + + + +---------+ + + | Performing | Address | City/State/Zipcode | Phone Number | | Organization | | | | + +---------+ + + | EXTERNAL LAB | | | | + +---------+ + + Magnesium (05/05/2018 2:17 PM PDT) + + + + + + | Component | Value | Ref Range | Performed | Pathologist | | | | | At | Signature | + + + + + + | Magnesium | 2.1Comment: Testing | 1.7 - 2.4 mg/dL | EXTERNAL | | | | performed at [facility];[address] | | LAB | | | | [address];[place], [place] | | | | | | [address] | | | | + + + + + + + + | Specimen | + + | Blood specimen | | (specimen) | + + + +---------+ + + | Performing | Address | City/State/Zipcode | Phone Number | | Organization | | | | + +---------+ + + | EXTERNAL LAB | | | | + +---------+ + + Basic Metabolic Panel (05/05/2018 2:17 PM PDT) + + + + + + | Component | Value | Ref Range | Performed | Pathologist | | | | | At | Signature | + + + + + + | Na | 137 | 135 - 145 | EXTERNAL | | | | | mmol/L | LAB | | + + + + + + | K | 4.1 | 3.5 - 4.9 | EXTERNAL | | | | | mmol/L | LAB | | + + + + + + | Cl | 103 | 99 - 109 mmol/L | EXTERNAL | | | | | | LAB | | + + + + + + | CO2 | 26 | 23 - 32 mmol/L | EXTERNAL | | | | | | LAB | | + + + + + + | Anion Gap | 11 | 5 - 20 mmol/L | EXTERNAL | | | | | | LAB | | + + + + + + | Glucose, | 89 | 65 - 99 mg/dL | EXTERNAL | | | Fasting | | | LAB | | + + + + + + | BUN | 8 | 8 - 25 mg/dL | EXTERNAL | | | | | | LAB | | + + + + + + | Creatinine | 0.55 (L) | 0.70 - 1.30 | EXTERNAL | | | | | mg/dL | LAB | | + + + + + + | BUN/Creatin | 15 | | EXTERNAL | | | ine Ratio | | | LAB | | + + + + + + | Calcium | 8.0 (L) | 8.5 - 10.5 | EXTERNAL | | | | | mg/dL | LAB | | + + + + + + | Estimated | >60Comment: GFR <60: | mL/min/1.73m2 | EXTERNAL | | | GFR | CHRONIC KIDNEY DISEASE, | | LAB | | | | IF FOUND OVER A 3 MONTH | | | | | | PERIOD.GFR <15: KIDNEY | | | | | | FAILURE.FOR | | | | | | AMERICANS, MULTIPLY THE | | | | | | CALCULATED GFR BY | | | | | | 1.210.This eGFR is | | | | | | calculated using the | | | | | | MDRD IDMS traceable | | | | | | equation.Testing | | | | | | performed at [facility];[address] | | | | | | [facility];[place], [place] | | | | | | [address] | | | | + + + + + + + + | Specimen | + + | Blood specimen | | (specimen) | + + + +---------+ + + | Performing | Address | City/State/Zipcode | Phone Number | | Organization | | | | + +---------+ + + | EXTERNAL LAB | | | | + +---------+ + + POC Glucose (05/05/2018 12:56 PM PDT) + + + + + + | Component | Value | Ref Range | Performed | Pathologist | | | | | At | Signature | + + + + + + | Glucose, | 131 (H)Comment: Testing | 65 - 99 mg/dL | EXTERNAL | | | Fingerstick | performed at [facility];[address] | | LAB | | | | [address];[place], [place] | | | | | | [address] | | | | + + + + + + + + | Specimen | + + | | + + + +---------+ + + | Performing | Address | City/State/Zipcode | Phone Number | | Organization | | | | + +---------+ + + | EXTERNAL LAB | | | | + +---------+ + + POC Glucose (05/05/2018 12:06 PM PDT) + + + + + + | Component | Value | Ref Range | Performed | Pathologist | | | | | At | Signature | + + + + + + | Glucose, | 147 (H)Comment: Testing | 65 - 99 mg/dL | EXTERNAL | | | Fingerstick | performed at [facility];[address] | | LAB | | | | [address];[place] | | | | | | [address] | | | | + + + + + + + + | Specimen | + + | | + + + +---------+ + + | Performing | Address | City/State/Zipcode | Phone Number | | Organization | | | | + +---------+ + + | EXTERNAL LAB | | | | + +---------+ + + POC Glucose (05/05/2018 11:36 AM PDT) + + + + + + | Component | Value | Ref Range | Performed | Pathologist | | | | | At | Signature | + + + + + + | Glucose, | 149 (H)Comment: Testing | 65 - 99 mg/dL | EXTERNAL | | | Fingerstick | performed at [facility];[address] | | LAB | | | | [address];[place] | | | | | | [address] | | | | + + + + + + + + | Specimen | + + | | + + + +---------+ + + | Performing | Address | City/State/Zipcode | Phone Number | | Organization | | | | + +---------+ + + | EXTERNAL LAB | | | | + +---------+ + + POC Glucose (05/05/2018 10:43 AM PDT) + + + + + + | Component | Value | Ref Range | Performed | Pathologist | | | | | At | Signature | + + + + + + | Glucose, | 52 (L)Comment: Testing | 65 - 99 mg/dL | EXTERNAL | | | Fingerstick | performed at [facility];[address] | | LAB | | | | [address];[place] | | | | | | [address] | | | | + + + + + + + + | Specimen | + + | | + + + +---------+ + + | Performing | Address | City/State/Zipcode | Phone Number | | Organization | | | | + +---------+ + + | EXTERNAL LAB | | | | + +---------+ + + POC Glucose (05/05/2018 9:35 AM PDT) + + + + + + | Component | Value | Ref Range | Performed | Pathologist | | | | | At | Signature | + + + + + + | Glucose, | 97Comment: Testing | 65 - 99 mg/dL | EXTERNAL | | | Fingerstick | performed at [facility] | | LAB | | | | [address];[place], [place] | | | | | | [address] | | | | + + + + + + + + | Specimen | + + | | + + + +---------+ + + | Performing | Address | City/State/Zipcode | Phone Number | | Organization | | | | + +---------+ + + | EXTERNAL LAB | | | | + +---------+ + + POC Glucose (05/05/2018 8:59 AM PDT) + + + + + + | Component | Value | Ref Range | Performed | Pathologist | | | | | At | Signature | + + + + + + | Glucose, | 79Comment: Testing | 65 - 99 mg/dL | EXTERNAL | | | Fingerstick | performed at [facility];[address] | | LAB | | | | [address];[place], [place] | | | | | | [address] | | | | + + + + + + + + | Specimen | + + | | + + + +---------+ + + | Performing | Address | City/State/Zipcode | Phone Number | | Organization | | | | + +---------+ + + | EXTERNAL LAB | | | | + +---------+ + + POC Glucose (05/05/2018 8:02 AM PDT) + + + + + + | Component | Value | Ref Range | Performed | Pathologist | | | | | At | Signature | + + + + + + | Glucose, | 93Comment: Testing | 65 - 99 mg/dL | EXTERNAL | | | Fingerstick | performed at [facility] | | LAB | | | | [address];[place], [place] | | | | | | [address] | | | | + + + + + + + + | Specimen | + + | | + + + +---------+ + + | Performing | Address | City/State/Zipcode | Phone Number | | Organization | | | | + +---------+ + + | EXTERNAL LAB | | | | + +---------+ + + POC Glucose (05/05/2018 6:58 AM PDT) + + + + + + | Component | Value | Ref Range | Performed | Pathologist | | | | | At | Signature | + + + + + + | Glucose, | 59 (L)Comment: Testing | 65 - 99 mg/dL | EXTERNAL | | | Fingerstick | performed at [facility];[address] | | LAB | | | | [address];[place] | | | | | | [address] | | | | + + + + + + + + | Specimen | + + | | + + + +---------+ + + | Performing | Address | City/State/Zipcode | Phone Number | | Organization | | | | + +---------+ + + | EXTERNAL LAB | | | | + +---------+ + + POC Glucose (05/05/2018 6:02 AM PDT) + + + + + + | Component | Value | Ref Range | Performed | Pathologist | | | | | At | Signature | + + + + + + | Glucose, | 82Comment: Testing | 65 - 99 mg/dL | EXTERNAL | | | Fingerstick | performed at [facility];[address] | | LAB | | | | [address];[place] | | | | | | [address] | | | | + + + + + + + + | Specimen | + + | | + + + +---------+ + + | Performing | Address | City/State/Zipcode | Phone Number | | Organization | | | | + +---------+ + + | EXTERNAL LAB | | | | + +---------+ + + POC Glucose (05/05/2018 5:03 AM PDT) + + + + + + | Component | Value | Ref Range | Performed | Pathologist | | | | | At | Signature | + + + + + + | Glucose, | 68Comment: Testing | 65 - 99 mg/dL | EXTERNAL | | | Fingerstick | performed at [facility];[address] | | LAB | | | | [address];[place], [place] | | | | | | [address] | | | | + + + + + + + + | Specimen | + + | | + + + +---------+ + + | Performing | Address | City/State/Zipcode | Phone Number | | Organization | | | | + +---------+ + + | EXTERNAL LAB | | | | + +---------+ + + External Lab: LILLIE (05/05/2018 4:11 AM PDT) + + +---- + + + | Component | Value | Ref Range | Performed | Pathologist | | | | | At | Signature | + + +---- + + + | WBC | 8.59 | 3.8 0 - 11.00 | EXTERNAL | | | | | K/u L | LAB | | + + +---- + + + | Non- | 6.46 (H) | 4.2 0 - 5.70 | EXTERNAL | | | Red Blood | | M/u L | LAB | | | Cells | | | | | | Counted | | | | | + + +---- + + + | Hemoglobin | 14.4 | 13. 2 - 17.0 | EXTERNAL | | | | | g/d L | LAB | | + + +---- + + + | Hematocrit, | 43.5 | 39. 0 - 50.0 % | EXTERNAL | | | POC | | | LAB | | + + +---- + + + | MCV | 67.3 (L) | 80. 0 - 100.0 fl | EXTERNAL | | | | | | LAB | | + + +---- + + + | MCH | 22.3 (L) | 27. 0 - 34.0 pg | EXTERNAL | | | | | | LAB | | + + +---- + + + | MCHC | 33.1 | 32. 0 - 35.5 | EXTERNAL | | | | | g/d L | LAB | | + + +---- + + + | RDW-CV | 49.0 | 37 - 53 fl | EXTERNAL | | | | | | LAB | | + + +---- + + + | Platelet | 159 | 150 - 400 K/uL | EXTERNAL | | | Count | | | LAB | | | Plasma | | | | | + + +---- + + + | MPV | 8.9 | fl | EXTERNAL | | | | | | LAB | | + + +---- + + + | Differentia | AUTOMATED | | EXTERNAL | | | l Type | | | LAB | | + + +---- + + + | % Segmented | 70.48 | % | EXTERNAL | | | | | | LAB | | | Neutrophils | | | | | + + +---- + + + | % | 21.22 | % | EXTERNAL | | | Lymphocytes | | | LAB | | + + +---- + + + | % Monocytes | 6.82 | % | EXTERNAL | | | | | | LAB | | + + +---- + + + | % | 0.87 | % | EXTERNAL | | | Eosinophils | | | LAB | | + + +---- + + + | % Basophils | 0.61 | % | EXTERNAL | | | | | | LAB | | + + +---- + + + | Absolute | 6.06 | 1.9 0 - 7.40 | EXTERNAL | | | Segmented | | K/u L | LAB | | | Neutrophils | | | | | + + +---- + + + | Absolute | 1.82 | 1.0 0 - 3.90 | EXTERNAL | | | Lymphocytes | | K/u L | LAB | | + + +---- + + + | Absolute | 0.59 | 0.0 0 - 0.80 | EXTERNAL | | | Monocytes | | K/u L | LAB | | + + +---- + + + | Absolute | 0.08 | 0.0 0 - 0.50 | EXTERNAL | | | Eosinophils | | K/u L | LAB | | + + +---- + + + | Absolute | 0.05 | 0.0 0 - 0.10 | EXTERNAL | | | Basophils | | K/u L | LAB | | + + +---- + + + | RBC | 1+Comment: | | EXTERNAL | | | Morphology | ANISO1+HYPO1+MICRONORMAL | | LAB | | | | PLT MORPHTesting | | | | | | performed at [facility], [address] | | | | | | [facility], | | | | | | [place] [address] | | | | | |MICRO | | | | | |NORMAL PLT MORPH | | | | | |Testing performed at [facility], [facility], [place] [address] | | | | | | | | | | + + +---- + + + + + | Specimen | + + | Blood specimen | | (specimen) | + + + +---------+ + + | Performing | Address | City/State/Zipcode | Phone Number | | Organization | | | | + +---------+ + + | EXTERNAL LAB | | | | + +---------+ + + Phosphorus (05/05/2018 4:11 AM PDT) + + + + + + | Component | Value | Ref Range | Performed | Pathologist | | | | | At | Signature | + + + + + + | PHOSPHORUS | 1.3 (L)Comment: Testing | 2.3 - 4.8 mg/dL | EXTERNAL | | | | performed at [facility], [address] | | LAB | | | | [address], | | | | | | [place] [address] | | | | + + + + + + + + | Specimen | + + | Blood specimen | | (specimen) | + + + +---------+ + + | Performing | Address | City/State/Zipcode | Phone Number | | Organization | | | | + +---------+ + + | EXTERNAL LAB | | | | + +---------+ + + Magnesium (05/05/2018 4:11 AM PDT) + + + + + + | Component | Value | Ref Range | Performed | Pathologist | | | | | At | Signature | + + + + + + | Magnesium | 1.9Comment: Testing | 1.7 - 2.4 mg/dL | EXTERNAL | | | | performed at [facility], [address] | | LAB | | | | [address], | | | | | | [place] [address] | | | | + + + + + + + + | Specimen | + + | Blood specimen | | (specimen) | + + + +---------+ + + | Performing | Address | City/State/Zipcode | Phone Number | | Organization | | | | + +---------+ + + | EXTERNAL LAB | | | | + +---------+ + + Hemoglobin A1C (05/05/2018 4:11 AM PDT) + + + + + + | Component | Value | Ref Range | Performed | Pathologist | | | | | At | Signature | + + + + + + | Hemoglobin | 6.0Comment: [facility] [place] | 4.0 - 6.0 % | EXTERNAL | | | A1c | Diabetes Association | | LAB | | | | considers a hemoglobin | | | | | | A1c result of <7.0% to | | | | | | be the goal of diabetic | | | | | | therapy. When results | | | | | | are consistently >8.0%, | | | | | | the ADA suggests | | | | | | reevaluation of the | | | | | | treatment regimen. The | | | | | | testing method used is | | | | | | certified traceable to | | | | | | the Diabetes Control and | | | | | | Complications Trial | | | | | | reference method. | | | | + + + + + + | Glycohemogl | 126Comment: The ADA | mg/dL | EXTERNAL | | | obin | considers an eAG result | | LAB | | | (GHb),Total | of LT 154 mg/dL to be | | | | | | the goal of diabetic | | | | | | therapy. Estimated | | | | | | Average Glucose | | | | | | calculated from | | | | | | hemoglobin A1c by use of | | | | | | the ADA recommended | | | | | | formula.Testing | | | | | | performed at [facility], [address] | | | | | [address], | | | | | | [place] [address] | | | | + + + + + + + + | Specimen | + + | Blood specimen | | (specimen) | + + + +---------+ + + | Performing | Address | City/State/Zipcode | Phone Number | | Organization | | | | + +---------+ + + | EXTERNAL LAB | | | | + +---------+ + + Basic Metabolic Panel (05/05/2018 4:11 AM PDT) + + + + + + | Component | Value | Ref Range | Performed | Pathologist | | | | | At | Signature | + + + + + + | Na | 135 | 135 - 145 | EXTERNAL | | | | | mmol/L | LAB | | + + + + + + | K | 4.2 | 3.5 - 4.9 | EXTERNAL | | | | | mmol/L | LAB | | + + + + + + | Cl | 99 | 99 - 109 mmol/L | EXTERNAL | | | | | | LAB | | + + + + + + | CO2 | 27 | 23 - 32 mmol/L | EXTERNAL | | | | | | LAB | | + + + + + + | Anion Gap | 13 | 5 - 20 mmol/L | EXTERNAL | | | | | | LAB | | + + + + + + | Glucose, | 88 | 65 - 99 mg/dL | EXTERNAL | | | Fasting | | | LAB | | + + + + + + | BUN | 10 | 8 - 25 mg/dL | EXTERNAL | | | | | | LAB | | + + + + + + | Creatinine | 0.7 | 0.70 - 1.30 | EXTERNAL | | | | | mg/dL | LAB | | + + + + + + | BUN/Creatin | 14 | | EXTERNAL | | | ine Ratio | | | LAB | | + + + + + + | Calcium | 7.9 (L) | 8.5 - 10.5 | EXTERNAL | | | | | mg/dL | LAB | | + + + + + + | Estimated | >60Comment: GFR <60: | mL/min/1.73m2 | EXTERNAL | | | GFR | CHRONIC KIDNEY DISEASE, | | LAB | | | | IF FOUND OVER A 3 MONTH | | | | | | PERIOD.GFR <15: KIDNEY | | | | | | FAILURE.FOR | | | | | | AMERICANS, MULTIPLY THE | | | | | | CALCULATED GFR BY | | | | | | 1.210.This eGFR is | | | | | | calculated using the | | | | | | MDRD IDMS traceable | | | | | | equation.Testing | | | | | | performed at [facility], [address] | | | | | [facility] [address], | | | | | | [place] [address] | | | | + + + + + + + + | Specimen | + + | Blood specimen | | (specimen) | + + + +---------+ + + | Performing | Address | City/State/Zipcode | Phone Number | | Organization | | | | + +---------+ + + | EXTERNAL LAB | | | | + +---------+ + + POC Glucose (05/05/2018 4:10 AM PDT) + + + + + + | Component | Value | Ref Range | Performed | Pathologist | | | | | At | Signature | + + + + + + | Glucose, | 89Comment: Testing | 65 - 99 mg/dL | EXTERNAL | | | Fingerstick | performed at [facility];[address] | | LAB | | | | [address];[place], [place] | | | | | | [address] | | | | + + + + + + + + | Specimen | + + | | + + + +---------+ + + | Performing | Address | City/State/Zipcode | Phone Number | | Organization | | | | + +---------+ + + | EXTERNAL LAB | | | | + +---------+ + + POC Glucose (05/05/2018 3:15 AM PDT) + + + + + + | Component | Value | Ref Range | Performed | Pathologist | | | | | At | Signature | + + + + + + | Glucose, | 64 (L)Comment: Testing | 65 - 99 mg/dL | EXTERNAL | | | Fingerstick | performed at [facility] | | LAB | | | | [address];[place], [place] | | | | | | [address] | | | | + + + + + + + + | Specimen | + + | | + + + +---------+ + + | Performing | Address | City/State/Zipcode | Phone Number | | Organization | | | | + +---------+ + + | EXTERNAL LAB | | | | + +---------+ + + POC Glucose (05/05/2018 2:08 AM PDT) + + + + + + | Component | Value | Ref Range | Performed | Pathologist | | | | | At | Signature | + + + + + + | Glucose, | 94Comment: Testing | 65 - 99 mg/dL | EXTERNAL | | | Fingerstick | performed at [facility];[address] | | LAB | | | | [address];[place] | | | | | | [address] | | | | + + + + + + + + | Specimen | + + | | + + + +---------+ + + | Performing | Address | City/State/Zipcode | Phone Number | | Organization | | | | + +---------+ + + | EXTERNAL LAB | | | | + +---------+ + + POC Glucose (05/05/2018 12:59 AM PDT) + + + + + + | Component | Value | Ref Range | Performed | Pathologist | | | | | At | Signature | + + + + + + | Glucose, | 190 (H)Comment: Testing | 65 - 99 mg/dL | EXTERNAL | | | Fingerstick | performed at [facility];[address] | | LAB | | | | [address];[place] | | | | | | [address] | | | | + + + + + + + + | Specimen | + + | | + + + +---------+ + + | Performing | Address | City/State/Zipcode | Phone Number | | Organization | | | | + +---------+ + + | EXTERNAL LAB | | | | + +---------+ + + POC Glucose (05/04/2018 11:58 PM PDT) + + + + + + | Component | Value | Ref Range | Performed | Pathologist | | | | | At | Signature | + + + + + + | Glucose, | 68Comment: Testing | 65 - 99 mg/dL | EXTERNAL | | | Fingerstick | performed at [facility];[address] | | LAB | | | | [address];[place], [place] | | | | | | [address] | | | | + + + + + + + + | Specimen | + + | | + + + +---------+ + + | Performing | Address | City/State/Zipcode | Phone Number | | Organization | | | | + +---------+ + + | EXTERNAL LAB | | | | + +---------+ + + POC Glucose (05/04/2018 10:59 PM PDT) + + + + + + | Component | Value | Ref Range | Performed | Pathologist | | | | | At | Signature | + + + + + + | Glucose, | 79Comment: Testing | 65 - 99 mg/dL | EXTERNAL | | | Fingerstick | performed at [facility] | | LAB | | | | [address];[place] | | | | | | [address] | | | | + + + + + + + + | Specimen | + + | | + + + +---------+ + + | Performing | Address | City/State/Zipcode | Phone Number | | Organization | | | | + +---------+ + + | EXTERNAL LAB | | | | + +---------+ + + Troponin I (05/04/2018 10:15 PM PDT) + + + + + + | Component | Value | Ref Range | Performed | Pathologist | | | | | At | Signature | + + + + + + | Troponin I, | <0.020Comment: 0.00 to | 0.00 - 0.10 | EXTERNAL | | | Qual | 0.10 CONSISTENT WITH | ng/mL | LAB | | | | NORMAL POPULATION0.11 | | | | | | to 0.60 CONSISTENT | | | | | | WITH INCREASED RISK FOR | | | | | | ADVERSE OUTCOMES> 0.60 | | | | | | CONSISTENT | | | | | | WITH WHO CRITERIA FOR | | | | | | ACUTE NV Testing | | | | | | performed at [facility];[address] | | | | | | [facility];[place], [place] | | | | | | [address] | | | | + + + + + + + + | Specimen | + + | Blood specimen | | (specimen) | + + + +---------+ + + | Performing | Address | City/State/Zipcode | Phone Number | | Organization | | | | + +---------+ + + | EXTERNAL LAB | | | | + +---------+ + + POC Glucose (05/04/2018 10:04 PM PDT) + + + + + + | Component | Value | Ref Range | Performed | Pathologist | | | | | At | Signature | + + + + + + | Glucose, | 68Comment: Testing | 65 - 99 mg/dL | EXTERNAL | | | Fingerstick | performed at [facility];[address] | | LAB | | | | [address];[place], [place] | | | | | | [address] | | | | + + + + + + + + | Specimen | + + | | + + + +---------+ + + | Performing | Address | City/State/Zipcode | Phone Number | | Organization | | | | + +---------+ + + | EXTERNAL LAB | | | | + +---------+ + + POC Glucose (05/04/2018 8:56 PM PDT) + + + + + + | Component | Value | Ref Range | Performed | Pathologist | | | | | At | Signature | + + + + + + | Glucose, | 91Comment: Testing | 65 - 99 mg/dL | EXTERNAL | | | Fingerstick | performed at [facility];[address] | | LAB | | | | [address];[place], [place] | | | | | | [address] | | | | + + + + + + + + | Specimen | + + | | + + + +---------+ + + | Performing | Address | City/State/Zipcode | Phone Number | | Organization | | | | + +---------+ + + | EXTERNAL LAB | | | | + +---------+ + + POC Glucose (05/04/2018 8:01 PM PDT) + + + + + + | Component | Value | Ref Range | Performed | Pathologist | | | | | At | Signature | + + + + + + | Glucose, | 94Comment: Testing | 65 - 99 mg/dL | EXTERNAL | | | Fingerstick | performed at [facility];[address] | | LAB | | | | [address];[place], [place] | | | | | | [address] | | | | + + + + + + + + | Specimen | + + | | + + + +---------+ + + | Performing | Address | City/State/Zipcode | Phone Number | | Organization | | | | + +---------+ + + | EXTERNAL LAB | | | | + +---------+ + + POC Glucose (05/04/2018 6:59 PM PDT) + + + + + + | Component | Value | Ref Range | Performed | Pathologist | | | | | At | Signature | + + + + + + | Glucose, | 108 (H)Comment: Testing | 65 - 99 mg/dL | EXTERNAL | | | Fingerstick | performed at [facility];[address] | | LAB | | | | [address];[place] | | | | | | [address] | | | | + + + + + + + + | Specimen | + + | | + + + +---------+ + + | Performing | Address | City/State/Zipcode | Phone Number | | Organization | | | | + +---------+ + + | EXTERNAL LAB | | | | + +---------+ + + POC Glucose (05/04/2018 6:08 PM PDT) + + + + + + | Component | Value | Ref Range | Performed | Pathologist | | | | | At | Signature | + + + + + + | Glucose, | 79Comment: Testing | 65 - 99 mg/dL | EXTERNAL | | | Fingerstick | performed at [facility];[address] | | LAB | | | | [address];[place] | | | | | | [address] | | | | + + + + + + + + | Specimen | + + | | + + + +---------+ + + | Performing | Address | City/State/Zipcode | Phone Number | | Organization | | | | + +---------+ + + | EXTERNAL LAB | | | | + +---------+ + + Potassium (05/04/2018 6:04 PM PDT) + + + + + + | Component | Value | Ref Range | Performed | Pathologist | | | | | At | Signature | + + + + + + | K | 4.2Comment: Testing | 3.5 - 4.9 | EXTERNAL | | | | performed at [facility];[address] | mmol/L | LAB | | | | [address];[place], [place] | | | | | | [address] | | | | + + + + + + + + | Specimen | + + | Blood specimen | | (specimen) | + + + +---------+ + + | Performing | Address | City/State/Zipcode | Phone Number | | Organization | | | | + +---------+ + + | EXTERNAL LAB | | | | + +---------+ + + Phosphorus (05/04/2018 6:04 PM PDT) + + + + + + | Component | Value | Ref Range | Performed | Pathologist | | | | | At | Signature | + + + + + + | PHOSPHORUS | 1.7 (L)Comment: Testing | 2.3 - 4.8 mg/dL | EXTERNAL | | | | performed at [facility];[address] | | LAB | | | | [address];[place] | | | | | | [address] | | | | + + + + + + + + | Specimen | + + | Blood specimen | | (specimen) | + + + +---------+ + + | Performing | Address | City/State/Zipcode | Phone Number | | Organization | | | | + +---------+ + + | EXTERNAL LAB | | | | + +---------+ + + Magnesium (05/04/2018 6:04 PM PDT) + + + + + + | Component | Value | Ref Range | Performed | Pathologist | | | | | At | Signature | + + + + + + | Magnesium | 2.4Comment: Testing | 1.7 - 2.4 mg/dL | EXTERNAL | | | | performed at [facility];[address] | | LAB | | | | [address];[place] | | | | | | [address] | | | | + + + + + + + + | Specimen | + + | Blood specimen | | (specimen) | + + + +---------+ + + | Performing | Address | City/State/Zipcode | Phone Number | | Organization | | | | + +---------+ + + | EXTERNAL LAB | | | | + +---------+ + + POC Glucose (05/04/2018 5:19 PM PDT) + + + + + + | Component | Value | Ref Range | Performed | Pathologist | | | | | At | Signature | + + + + + + | Glucose, | 97Comment: Testing | 65 - 99 mg/dL | EXTERNAL | | | Fingerstick | performed at [facility];[address] | | LAB | | | | [address];[place], [place] | | | | | | [address] | | | | + + + + + + + + | Specimen | + + | | + + + +---------+ + + | Performing | Address | City/State/Zipcode | Phone Number | | Organization | | | | + +---------+ + + | EXTERNAL LAB | | | | + +---------+ + + POC Glucose (05/04/2018 4:37 PM PDT) + + + + + + | Component | Value | Ref Range | Performed | Pathologist | | | | | At | Signature | + + + + + + | Glucose, | 122 (H)Comment: Testing | 65 - 99 mg/dL | EXTERNAL | | | Fingerstick | performed at [facility];[address] | | LAB | | | | [address];[place] | | | | | | [address] | | | | + + + + + + + + | Specimen | + + | | + + + +---------+ + + | Performing | Address | City/State/Zipcode | Phone Number | | Organization | | | | + +---------+ + + | EXTERNAL LAB | | | | + +---------+ + + POC Glucose (05/04/2018 4:03 PM PDT) + + + + + + | Component | Value | Ref Range | Performed | Pathologist | | | | | At | Signature | + + + + + + | Glucose, | 260 (H)Comment: Testing | 65 - 99 mg/dL | EXTERNAL | | | Fingerstick | performed at [facility] | | LAB | | | | [address];[place] | | | | | | [address] | | | | + + + + + + + + | Specimen | + + | | + + + +---------+ + + | Performing | Address | City/State/Zipcode | Phone Number | | Organization | | | | + +---------+ + + | EXTERNAL LAB | | | | + +---------+ + + POC Glucose (05/04/2018 3:33 PM PDT) + + + + + + | Component | Value | Ref Range | Performed | Pathologist | | | | | At | Signature | + + + + + + | Glucose, | 76Comment: Testing | 65 - 99 mg/dL | EXTERNAL | | | Fingerstick | performed at [facility];[address] | | LAB | | | | [address];[place] | | | | | | [address] | | | | + + + + + + + + | Specimen | + + | | + + + +---------+ + + | Performing | Address | City/State/Zipcode | Phone Number | | Organization | | | | + +---------+ + + | EXTERNAL LAB | | | | + +---------+ + + POC Glucose (05/04/2018 3:15 PM PDT) + + + + + + | Component | Value | Ref Range | Performed | Pathologist | | | | | At | Signature | + + + + + + | Glucose, | 76Comment: Testing | 65 - 99 mg/dL | EXTERNAL | | | Fingerstick | performed at [facility];[address] | | LAB | | | | [address];[place] | | | | | | [address] | | | | + + + + + + + + | Specimen | + + | | + + + +---------+ + + | Performing | Address | City/State/Zipcode | Phone Number | | Organization | | | | + +---------+ + + | EXTERNAL LAB | | | | + +---------+ + + ECG 12 lead (05/04/2018 3:04 PM PDT) + + + + + + | Component | Value | Ref Range | Performed | Pathologist | | | | | At | Signature | + + + + + + | DIAGNOSIS: | Normal sinus rhythm Left | | EXTERNAL | | | | atrial abnormalityLow | | LAB | | | | voltage limb leads | | | | | | onlyNonspecific ST | | | | | | and/or T wave | | | | | | abnormalitiesProlonged | | | | | | Q-T intervalCannot rule | | | | | | out Inferior infarct , | | | | | | age undeterminedAbnormal | | | | | | ECGNo previous ECGs | | | | | | availableConfirmed by | | | | | | SHARLENE TAMEZ MD ([id number]) | | | | | | on 05/05/2018 9:14:16 AM | | | | + + + + + + + + | Specimen | + + | | + + + + + | Narrative | Performed At | + + + | Historically converted procedure from [facility] environment | EXTERNAL LAB | + + + + +---------+ + + | Performing | Address | City/State/Zipcode | Phone Number | | Organization | | | | + +---------+ + + | EXTERNAL LAB | | | | + +---------+ + + POC Glucose (05/04/2018 3:01 PM PDT) + + + + + + | Component | Value | Ref Range | Performed | Pathologist | | | | | At | Signature | + + + + + + | Glucose, | 79Comment: Testing | 65 - 99 mg/dL | EXTERNAL | | | Fingerstick | performed at [facility];[address] | | LAB | | | | [address];[place], [place] | | | | | | [address] | | | | + + + + + + + + | Specimen | + + | | + + + +---------+ + + | Performing | Address | City/State/Zipcode | Phone Number | | Organization | | | | + +---------+ + + | EXTERNAL LAB | | | | + +---------+ + + Troponin I (05/04/2018 2:58 PM PDT) + + + + + + | Component | Value | Ref Range | Performed | Pathologist | | | | | At | Signature | + + + + + + | Troponin I, | 0.022Comment: 0.00 to | 0.00 - 0.10 | EXTERNAL | | | Qual | 0.10 CONSISTENT WITH | ng/mL | LAB | | | | NORMAL POPULATION0.11 to | | | | | | 0.60 CONSISTENT WITH | | | | | | INCREASED RISK FOR | | | | | | ADVERSE OUTCOMES> 0.60 | | | | | | CONSISTENT | | | | | | WITH WHO CRITERIA FOR | | | | | | ACUTE NV Testing | | | | | | performed at [facility];[address] | | | | | | [facility];[place], [place] | | | | | | [address] | | | | + + + + + + + + | Specimen | + + | Blood specimen | | (specimen) | + + + +---------+ + + | Performing | Address | City/State/Zipcode | Phone Number | | Organization | | | | + +---------+ + + | EXTERNAL LAB | | | | + +---------+ + + POC Glucose (05/04/2018 2:32 PM PDT) + + + + + + | Component | Value | Ref Range | Performed | Pathologist | | | | | At | Signature | + + + + + + | Glucose, | 61 (L)Comment: Testing | 65 - 99 mg/dL | EXTERNAL | | | Fingerstick | performed at [facility];[address] | | LAB | | | | [address];[place] | | | | | | [address] | | | | + + + + + + + + | Specimen | + + | | + + + +---------+ + + | Performing | Address | City/State/Zipcode | Phone Number | | Organization | | | | + +---------+ + + | EXTERNAL LAB | | | | + +---------+ + + POC Glucose (05/04/2018 2:10 PM PDT) + + + + + + | Component | Value | Ref Range | Performed | Pathologist | | | | | At | Signature | + + + + + + | Glucose, | 150 (H)Comment: Testing | 65 - 99 mg/dL | EXTERNAL | | | Fingerstick | performed at [facility];[address] | | LAB | | | | [address];[place], [place] | | | | | | [address] | | | | + + + + + + + + | Specimen | + + | | + + + +---------+ + + | Performing | Address | City/State/Zipcode | Phone Number | | Organization | | | | + +---------+ + + | EXTERNAL LAB | | | | + +---------+ + + POC Glucose (05/04/2018 1:54 PM PDT) + + + + + + | Component | Value | Ref Range | Performed | Pathologist | | | | | At | Signature | + + + + + + | Glucose, | 93Comment: Testing | 65 - 99 mg/dL | EXTERNAL | | | Fingerstick | performed at [facility];[address] | | LAB | | | [address];[place], [place] | | | | | | [address] | | | | + + + + + + + + | Specimen | + + | | + + + +---------+ + + | Performing | Address | City/State/Zipcode | Phone Number | | Organization | | | | + +---------+ + + | EXTERNAL LAB | | | | + +---------+ + + POC Glucose (05/04/2018 1:28 PM PDT) + + + + + + | Component | Value | Ref Range | Performed | Pathologist | | | | | At | Signature | + + + + + + | Glucose, | 54 (L)Comment: Testing | 65 - 99 mg/dL | EXTERNAL | | | Fingerstick | performed at [facility] | | LAB | | | | [address];[place], [place] | | | | | | [address] | | | | + + + + + + + + | Specimen | + + | | + + + +---------+ + + | Performing | Address | City/State/Zipcode | Phone Number | | Organization | | | | + +---------+ + + | EXTERNAL LAB | | | | + +---------+ + + MRSA NAAT (05/04/2018 1:23 PM PDT) + + | Specimen | + + | | + + + + + | Narrative | Performed At | + + + | SOURCE NARES(NOSE) MRSA | EXTERNAL LAB | | PCR NEGATIVE Testing | | | performed at [facility];[address] [place] [address];[place] [address] | | + + + + +---------+ + + | Performing | Address | City/State/Zipcode | Phone Number | | Organization | | | | + +---------+ + + | EXTERNAL LAB | | | | + +---------+ + + Culture, Urine (05/04/2018 1:06 PM PDT) + + | Specimen | + + | | + + + + + | Narrative | Performed At | + + + | Specimen Description URINE, COLLECTION NOT | EXTERNAL LAB | | GIVEN CULTURE 10,000 TO | | | 50,000 CFU/ML | | | PSEUDOMONAS AERUGINOSAAbnormal Suscepibility for - PSEUDOMONAS | | | AERUGINOSA Cefepime | | | SUSCEPTIBLESensitive Ceftazidime | | | SUSCEPTIBLESensitive Ciprofloxacin | | | SUSCEPTIBLESensitive Gentamicin | | | SUSCEPTIBLESensitive Levofloxacin | | | SUSCEPTIBLESensitive Tobramycin | | | SUSCEPTIBLESensitive | | + + + + +---------+ + + | Performing | Address | City/State/Zipcode | Phone Number | | Organization | | | | + +---------+ + + | EXTERNAL LAB | | | | + +---------+ + + Drugs Of ABuse Screen, Urine (H) (05/04/2018 1:06 PM PDT) + + + + + + | Component | Value | Ref Range | Performed | Pathologist | | | | | At | Signature | + + + + + + | Methampheta | NEGATIVEComment: | | EXTERNAL | | | mine/ | Positive cutoff for AMP | | LAB | | | Amphetamine | = 1000 ng/mL | | | | | Screen, | | | | | | UA, POC | | | | | + + + + + + | Barbiturate | NEGATIVEComment: | | EXTERNAL | | | s Screen, | Positive cutoff for LORENZO | | LAB | | | Urine | = 200 ng/mL | | | | + + + + + + | Benzodiazep | NEGATIVEComment: | | EXTERNAL | | | anca | Positive cutoff for | | LAB | | | Screen, | BENZO = 200 ng/mL | | | | | Urine | | | | | + + + + + + | Cocaine | NEGATIVEComment: | | EXTERNAL | | | | Positive cutoff for PERRY | | LAB | | | | = 300 ng/mL | | | | + + + + + + | Methadone | NEGATIVEComment: | | EXTERNAL | | | | Positive cutoff for MTD | | LAB | | | | = 300 ng/mL | | | | + + + + + + | Opiates | NEGATIVEComment: | | EXTERNAL | | | | Positive cutoff for OPI | | LAB | | | | = 300 ng/mL | | | | + + + + + + | PCP | NEGATIVEComment: | | EXTERNAL | | | | Positive cutoff for PCP | | LAB | | | | = 25 ng/mL | | | | + + + + + + | Cannabinoid | POSITIVE (A)Comment: | | EXTERNAL | | | s Screen, | Positive cutoff for | | LAB | | | Serum | THC = 50 ng/mLThe above | | | | | | are unconfirmed | | | | | | screening results. | | | | | | These results are to | | | | | | be used only for medical | | | | | | (i.e.,treatment) | | | | | | purposes. Unconfirmed | | | | | | screening results must | | | | | | not be used for | | | | | | non-medical purposes | | | | | | (e.g., employment | | | | | | testing, legal | | | | | | testing).Testing | | | | | | performed at [facility];[address] | | | | | | [facility];[place], [place] | | | | | | [address] | | | | + + + + + + + + | Specimen | + + | | + + + +---------+ + + | Performing | Address | City/State/Zipcode | Phone Number | | Organization | | | | + +---------+ + + | EXTERNAL LAB | | | | + +---------+ + + Urinalysis, Reflex Microscopic and/or Culture (05/04/2018 1:06 PM PDT) + + + + + + | Component | Value | Ref Range | Performed | Pathologist | | | | | At | Signature | + + + + + + | Color | STRAW | | EXTERNAL | | | | | | LAB | | + + + + + + | Clarity, | CLEAR | | EXTERNAL | | | Urine | | | LAB | | + + + + + + | Specific | 1.004 | 1.002 - 1.030 | EXTERNAL | | | [place], | | | LAB | | | Urine | | | | | + + + + + + | Leukocyte | LARGE (A) | | EXTERNAL | | | Esterase, | | | LAB | | | Urine | | | | | + + + + + + | Nitrite, | NEGATIVE | | EXTERNAL | | | Urine | | | LAB | | + + + + + + | Urobilinoge | 4.0 (H) | mg/dL | EXTERNAL | | | n, Urine | | | LAB | | + + + + + + | Protein, | NEGATIVE | mg/dL | EXTERNAL | | | Urine | | | LAB | | + + + + + + | pH, Urine | 8.0 | 5.0 - 8.0 | EXTERNAL | | | | | | LAB | | + + + + + + | Blood, | NEGATIVE | | EXTERNAL | | | Urine | | | LAB | | + + + + + + | Ketones | NEGATIVE | mg/dL | EXTERNAL | | | | | | LAB | | + + + + + + | Bilirubin, | NEGATIVE | | EXTERNAL | | | Urine | | | LAB | | + + + + + + | Glucose, | NEGATIVE | mg/dL | EXTERNAL | | | Urine | | | LAB | | + + + + + + | WBC, UA | 11-15 | 0 - 5 /hpf | EXTERNAL | | | | | | LAB | | + + + + + + | RBC, UA | 0-2 | 0 - 2 /hpf | EXTERNAL | | | | | | LAB | | + + + + + + | Bacteria, | NONE SEEN | | EXTERNAL | | | UA | | | LAB | | + + + + + + | Epithelial | NONE SEENComment: | /lpf | EXTERNAL | | | Cells | Testing performed at | | LAB | | | | [facility];[address] [place] [address] | | | | | | Bl;[place] [address] | | | | + + + + + + + + | Specimen | + + | | + + + +---------+ + + | Performing | Address | City/State/Zipcode | Phone Number | | Organization | | | | + +---------+ + + | EXTERNAL LAB | | | | + +---------+ + + POC Glucose (05/04/2018 12:44 PM PDT) + + + + + + | Component | Value | Ref Range | Performed | Pathologist | | | | | At | Signature | + + + + + + | Glucose, | 77Comment: Testing | 65 - 99 mg/dL | EXTERNAL | | | Fingerstick | performed at [facility];[address] | [address] | | | | [address]az[address];[place] | | | | | | [id number] | | | | + + + + + + + + | Specimen | + + | | + + + +---------+ + + | Performing | Address | City/State/Zipcode | Phone Number | | Organization | | | | + +---------+ + + | EXTERNAL LAB | | | | + +---------+ + + Procalcitonin (05/04/2018 12:09 PM PDT) + + + + + + | Component | Value | Ref Range | Performed | Pathologist | | | | | At | Signature | + + + + + + | PROCALCITON | 0.21Comment: | ng/mL | EXTERNAL | | | IN | INTERPRETIVE | | LAB | | | | INFORMATION: | | | | | | PROCALCITONIN PCT <= | | | | | | 0.5 ng/mL: Low risk | | | | | | for progression to | | | | | | severe systemic | | | | | | bacterial infection | | | | | | (severe sepsis/septic | | | | | | shock). Does not | | | | | | exclude an infection, | | | | | | because localized | | | | | | infections may be | | | | | | associated with such low | | | | | | levels. If PCT is | | | | | | measured very early | | | | | | after bacterial | | | | | | challenge (usually <6 | | | | | | hours), results may | | | | | | still be low and | | | | | | should re-assess PCT | | | | | | 6-24 hours later. PCT | | | | | | >0.5 and <= 2 ng/mL: | | | | | | Moderate risk for | | | | | | progression to severe | | | | | | systemic infection | | | | | | (severe sepsis/septic | | | | | | shock). Other | | | | | | conditions are known | | | | | | to elevate PCT, patient | | | | | | should be closely | | | | | | monitored both | | | | | | clinically and by | | | | | | re-assessing PCT | | | | | | within 6-24 hours. PCT > | | | | | | 2 ng/mL: High | | | | | | likelihood for | | | | | | progression to severe | | | | | | systemic bacterial | | | | | | infection (severe | | | | | | sepsis/septic shock). | | | | | | PCT >= 10 ng/mL: | | | | | | High likelihood of | | | | | | severe sepsis or septic | | | | | | shock.Testing performed | | | | | | at [facility];[address];[place] [address] | | | | + + + + + + + + | Specimen | + + | | + + + +---------+ + + | Performing | Address | City/State/Zipcode | Phone Number | | Organization | | | | + +---------+ + + | EXTERNAL LAB | | | | + +---------+ + + Protime INR (05/04/2018 12:09 PM PDT) + + + + + + | Component | Value | Ref Range | Performed | Pathologist | | | | | At | Signature | + + + + + + | INR | 1.2Comment: REFERENCE | | EXTERNAL | | | | RANGE:0.9 - 1.2 | | LAB | | | | NON-ANTICOAGULATED2.0 | | | | | | - 3.0 ALL OTHER | | | | | | THERAPEUTIC | | | | | | INDICATIONS2.5 - 3.5 | | | | | | MECHANICAL HEART VALVES, | | | | | | RECURRENT OR SYSTEMIC | | | | | | EMBOLISMTesting | | | | | | performed at [facility];[address] | | | | | | [facility];[place], [place] | | | | | | [address] | | | | + + + [...] + +---------+ + + External Lab: CBC (05/04/2018 12:09 PM PDT) + + + + + + | Component | Value | Ref Range | Performed | Pathologist | | | | | At | Signature | + + + + + + | WBC | 10.55 | 3.80 - 11.00 | EXTERNAL | | | | | K/uL | LAB | | + + + + + + | Non- | 6.96 (H) | 4.20 - 5.70 | EXTERNAL | | | Red Blood | | M/uL | LAB | | | Cells | | | | | | Counted | | | | | + + + + + + | Hemoglobin | 15.3 | 13.2 - 17.0 | EXTERNAL | | | | | g/dL | LAB | | + + + + + + | Hematocrit, | 48.1 | 39.0 - 50.0 % | EXTERNAL | | | POC | | | LAB | | + + + + + + | MCV | 69.1 (L) | 80.0 - 100.0 fl | EXTERNAL | | | | | | LAB | | + + + + + + | MCH | 22.0 (L) | 27.0 - 34.0 pg | EXTERNAL | | | | | | LAB | | + + + + + + | MCHC | 31.9 (L) | 32.0 - 35.5 | EXTERNAL | | | | | g/dL | LAB | | + + + + + + | RDW-CV | 50.8 | 37 - 53 fl | EXTERNAL | | | | | | LAB | | + + + + + + | Platelet | 205 | 150 - 400 K/uL | EXTERNAL | | | Count | | | LAB | | | Plasma | | | | | + + + + + + | MPV | 8.6 | fl | EXTERNAL | | | | | | LAB | | + + + + + + | Differentia | AUTOMATED | | EXTERNAL | | | l Type | | | LAB | | + + + + + + | % Segmented | 75.15 | % | EXTERNAL | | | | | | LAB | | | Neutrophils | | | | | + + + + + + | % | 17.60 | % | EXTERNAL | | | Lymphocytes | | | LAB | | + + + + + + | % Monocytes | 6.35 | % | EXTERNAL | | | | | | LAB | | + + + + + + | % | 0.29 | % | EXTERNAL | | | Eosinophils | | | LAB | | + + + + + + | % Basophils | 0.61 | % | EXTERNAL | | | | | | LAB | | + + + + + + | Absolute | 7.93 (H) | 1.90 - 7.40 | EXTERNAL | | | Segmented | | K/uL | LAB | | | Neutrophils | | | | | + + + + + + | Absolute | 1.86 | 1.00 - 3.90 | EXTERNAL | | | Lymphocytes | | K/uL | LAB | | + + + + + + | Absolute | 0.67 | 0.00 - 0.80 | EXTERNAL | | | Monocytes | | K/uL | LAB | | + + + + + + | Absolute | 0.03 | 0.00 - 0.50 | EXTERNAL | | | Eosinophils | | K/uL | LAB | | + + + + + + | Absolute | 0.07 | 0.00 - 0.10 | EXTERNAL | | | Basophils | | K/uL | LAB | | + + + + + + | RBC | 2+ | | EXTERNAL | | | Morphology | Comment: | | LAB | | | | MICRO | | | | | | 1+ | | | | | | ANISO | | | | | | | | | | + + + + + + | Platelet | ADEQUATEComment: Testing | | EXTERNAL | | | Estimate | performed at [facility];[address] | | LAB | | | | [address];[place] | | | | | | [address] | | | | + + + + + + + + | Specimen | + + | Blood specimen | | (specimen) | + + + +---------+ + + | Performing | Address | City/State/Zipcode | Phone Number | | Organization | | | | + +---------+ + + | EXTERNAL LAB | | | | + +---------+ + + Phosphorus (05/04/2018 12:09 PM PDT) + + + + + + | Component | Value | Ref Range | Performed | Pathologist | | | | | At | Signature | + + + + + + | PHOSPHORUS | 1.4 (L)Comment: Testing | 2.3 - 4.8 mg/dL | EXTERNAL | | | | performed at [facility] | | LAB | | | | [address];[place], [place] | | | | | | [address] | | | | + + + + + + + + | Specimen | + + | Blood specimen | | (specimen) | + + + +---------+ + + | Performing | Address | City/State/Zipcode | Phone Number | | Organization | | | | + +---------+ + + | EXTERNAL LAB | | | | + +---------+ + + Magnesium (05/04/2018 12:09 PM PDT) + + + + + + | Component | Value | Ref Range | Performed | Pathologist | | | | | At | Signature | + + + + + + | Magnesium | 1.8Comment: Testing | 1.7 - 2.4 mg/dL | EXTERNAL | | | | performed at [facility];[address] | | LAB | | | [address];[place], [place] | | | | | | [address] | | | | + + + [...] + +---------+ + + Comprehensive Metabolic Panel (05/04/2018 12:09 PM PDT) + + + + + + | Component | Value | Ref Range | Performed | Pathologist | | | | | At | Signature | + + + + + + | Na | 137 | 135 - 145 | EXTERNAL | | | | | mmol/L | LAB | | + + + + + + | K | 3.6Comment: SLT | 3.5 - 4.9 | EXTERNAL | | | | HEMOLYSIS | mmol/L | LAB | | + + + + + + | Cl | 100 | 99 - 109 mmol/L | EXTERNAL | | | | | | LAB | | + + + + + + | CO2 | 28 | 23 - 32 mmol/L | EXTERNAL | | | | | | LAB | | + + + + + + | Anion Gap | 12 | 5 - 20 mmol/L | EXTERNAL | | | | | | LAB | | + + + + + + | Glucose, | 69 | 65 - 99 mg/dL | EXTERNAL | | | Fasting | | | LAB | | + + + + + + | BUN | 12 | 8 - 25 mg/dL | EXTERNAL | | | | | | LAB | | + + + + + + | Creatinine | 0.78 | 0.70 - 1.30 | EXTERNAL | | | | | mg/dL | LAB | | + + + + + + | BUN/Creatin | 15 | | EXTERNAL | | | ine Ratio | | | LAB | | + + + + + + | Calcium | 8.1 (L) | 8.5 - 10.5 | EXTERNAL | | | | | mg/dL | LAB | | + + + + + + | Protein, | 7.3 | 6.3 - 8.2 g/dL | EXTERNAL | | | Total | | | LAB | | + + + + + + | Albumin | 2.7 (L) | 3.6 - 5.0 g/dL | EXTERNAL | | | | | | LAB | | + + + + + + | Globulin | 4.5 | 1.3 - 4.9 g/dL | EXTERNAL | | | | | | LAB | | + + + + + + | A/G Ratio | 0.6 (L) | 1.0 - 2.4 | EXTERNAL | | | | | | LAB | | + + + + + + | Bilirubin | 0.5 | 0.1 - 1.5 mg/dL | EXTERNAL | | | Total | | | LAB | | + + + + + + | ALP, | 103 | 35 - 115 U/L | EXTERNAL | | | External | | | LAB | | + + + + + + | AST | 17Comment: SLT HEMOLYSIS | 10 - 45 U/L | EXTERNAL | | | | | | LAB | | + + + + + + | ALT | 12 | 10 - 65 U/L | EXTERNAL | | | | | | LAB | | + + + + + + | Estimated | >60Comment: GFR <60: | mL/min/1.73m2 | EXTERNAL | | | GFR | CHRONIC KIDNEY DISEASE, | | LAB | | | | IF FOUND OVER A 3 MONTH | | | | | | PERIOD.GFR <15: KIDNEY | | | | | | FAILURE.FOR | | | | | | AMERICANS, MULTIPLY THE | | | | | | CALCULATED GFR BY | | | | | | 1.210.This eGFR is | | | | | | calculated using the | | | | | | MDRD IDMS traceable | | | | | | equation.Testing | | | | | | performed at [facility] | | | | | | [facility];[place], [place] | | | | | | [address] | | | | + + + + + + + + | Specimen | + + | Blood specimen | | (specimen) | + + + +---------+ + + | Performing | Address | City/State/Zipcode | Phone Number | | Organization | | | | + +---------+ + + | EXTERNAL LAB | | | | + +---------+ + + POC Glucose (05/04/2018 12:06 PM PDT) + + + + + + | Component | Value | Ref Range | Performed | Pathologist | | | | | At | Signature | + + + + + + | Glucose, | 93Comment: Testing | 65 - 99 mg/dL | EXTERNAL | | | Fingerstick | performed at [facility];[address] | | LAB | | | [address];[place], [place] | | | | | | [address] | | | | + + + + + + + + | Specimen | + + | | + + + +---------+ + + | Performing | Address | City/State/Zipcode | Phone Number | | Organization | | | | + +---------+ + + | EXTERNAL LAB | | | | + +---------+ + + POC Glucose (05/04/2018 11:50 AM PDT) + + + + + + | Component | Value | Ref Range | Performed | Pathologist | | | | | At | Signature | + + + + + + | Glucose, | 72Comment: Testing | 65 - 99 mg/dL | EXTERNAL | | | Fingerstick | performed at [facility];[address] | | LAB | | | | [address];[place] | | | | | | [address] | | | | + + + + + + + + | Specimen | + + | | + + + +---------+ + + | Performing | Address | City/State/Zipcode | Phone Number | | Organization | | | | + +---------+ + + | EXTERNAL LAB | | | | + +---------+ + + POC Glucose (05/04/2018 11:17 AM PDT) + + + + + + | Component | Value | Ref Range | Performed | Pathologist | | | | | At | Signature | + + + + + + | Glucose, | 82Comment: Testing | 65 - 99 mg/dL | EXTERNAL | | | Fingerstick | performed at [facility];[address] | | LAB | | | | [address] [facility];[place], [place] | | | | | | [address] | | | | + + + + + + + + | Specimen | + + | | + + + +---------+ + + | Performing | Address | City/State/Zipcode | Phone Number | | Organization | | | | + +---------+ + + | EXTERNAL LAB | | | | + +---------+ + + POC Glucose (05/04/2018 10:54 AM PDT) + + + + + + | Component | Value | Ref Range | Performed | Pathologist | | | | | At | Signature | + + + + + + | Glucose, | 62 (L)Comment: Testing | 65 - 99 mg/dL | EXTERNAL | | | Fingerstick | performed at [facility];[address] | | LAB | | | | [address];[place] | | | | | | [address] | | | | + + + + + + + + | Specimen | + + | | + + + +---------+ + + | Performing | Address | City/State/Zipcode | Phone Number | | Organization | | | | + +---------+ + + | EXTERNAL LAB | | | | + +---------+ + + POC Glucose (05/04/2018 10:27 AM PDT) + + + + + + | Component | Value | Ref Range | Performed | Pathologist | | | | | At | Signature | + + + + + + | Glucose, | 72Comment: Testing | 65 - 99 mg/dL | EXTERNAL | | | Fingerstick | performed at [facility];[address] | | LAB | | | | [address];[place], [place] | | | | | | [address] | | | | + + + [...] + | Diagnosis | + + | Discitis of lumbar region Other and unspecified disc disorder of lumbar region | + + | Infective endocarditis of aortic valve | + + | Paroxysmal atrial fibrillation (HCC) Atrial fibrillation | + + | Benign essential hypertension Essential hypertension, benign | + + documented in this encounter
--- OUTSIDE RECORDS SUMMARY | ~2020-04-08 | XMS | Clinical Summary ---
Demographics + + + | Address | [address] | | | [place] [address] | + + + | Home Phone | | + + + | Preferred Language | Unknown | + + + | Marital Status | Single | + + + | Yarsanism Affiliation | CHR | + + + [...] Team Providers + +------+ + | Care Production Engineer Track Name | Role | Phone | + +------+ + | Chery Carrion PA-C | PCP | | + +------+ + Source Comments ADDY is fully live on both [facility] Ambulatory and [facility] InPatient.[facility] Allergies + + + + + [...] Right: | JACK | | 01/17/ | [id number] | | Gentamicin 40gm Green - | | Hip | | | 1 | [address] | | [id number]: Qty: 1 on | | | | | | / | | 01/20/2018 by Ryne Moreland | | | | | | /[id number] | | MD Corin at [facility] | | | | | | 599 | | LOC | | | | | | | + +------+--------+ +--------+--------+--------+ | Cement Bone Palacos R+G | | Right: | JACK | | 09/19/ | 581990 | | Gentamicin 40gm Green - | | Hip | | | 2020 | [address] | | [id number]: Qty: 1 on | | | | | | / | | 01/20/2018 by Ryne Moreland | | | | | | /[id number] | | MD Corin at [facility] | | | | | | 783 | | LOC | | | | | | | + +------+--------+ +--------+--------+--------+ | Bioprep Bone Preparation | | Right: | LAI | | 10/21/ | [id number] | | KitImplanted: Qty: 1 on | | Hip | | | 2021 | 3011 / | | 01/20/2018 by Ryne Moreland | | | | | | / | | MD Corin at [facility] | | | | | | | | LOC | | | | | | | + +------+--------+ +--------+--------+--------+ | Stem Femoral 11mm Lateralize | | Right: | BIOMET | | 03/03/ | 12-151 | | Echo Fx Cocr Offset Hip - | | Hip | | | 2025 | 411 / | | [id number]: Qty: 1 on | | | | | | /[id number] | | 01/20/2018 by Ryne Moreland | | | | | | 0 | | MD Corin at [facility] | | | | | | | | LOC | | | | | | | + +------+--------+ +--------+--------+--------+ | Centralizer Stem 13mm | | Right: | BIOMET | | 10/05/ | [id number] | | Generation 4 Echo Answer Hip | | Hip | | | 2027 | / | | Distal Pmma Positioner - | | | | | | /92145 | | [id number]: Qty: 1 on | | | | | | 0 | | 01/20/2018 by Ryne Moreland | | | | | | | | MD Corin at [facility] | | | | | [...] Endoprosthesis | | | | | | /[id number] | | - [id number]: Qty: 1 | | | | | | 0 | | on 01/20/2018 by Aniceto | | | | | | | | Ryne Coombs MD at [facility] | | | | | | | | REV LOC | | | | | | | + +------+--------+ +--------+--------+--------+ | Insert Acetabular Standard | | Right: | BIOMET | | 12/10/ | [id number] | | Hip Tapered Endo Ii - | | Hip | | | 2027 | / | | [id number]: Qty: 1 on | | | | | | /[id number] | | 01/20/2018 by Ryne Moreland | | | | | | 0 | | MD Corin at [facility] | | | | | [...] | | | + +--------+ +--------+-------+---------+--------+ | [employer] | [employer] | xxxxxxxx | | | | Medica [...] + +--------+ +--------+-------+---------+--------+ | [place] | JAVI | xxxxxxx | 12/20/19 | [...] 1959 | [id number] | [place] [address] | | | robi | | | 8 (Home) | | + +--------+ +--------+ + + | Travis Floyd | Third | Self | [birth year] | [address] | | | [employer] | | 1959 | [id number] | [place] [address] | | | Liabil | | | [...]
--- OUTSIDE RECORDS SUMMARY | ~2020-04-08 | XMS | Encounter Summary ---
Demographics + + + | Address | [address] | | | [place] [address] | + + + | Home Phone | | + + + | Preferred Language | Unknown | + + + | Marital Status | Single | + + + | Tenriism Affiliation | CHR | + + + | Race | White | + + + | Ethnic Group | Not or | + + + Author + + + | Author | [facility] | + + + | Organization | [facility] | + + + | Address | Unknown | + + + | Phone | Unavailable | + + + Support + + +---------+ + | Name | Relationship | Address | Phone | + + +---------+ + | Kaycee Ferraro | ECON | Unknown | | + + +---------+ + Care Team Providers + +------+ + | Care Philosophy Faculty Member Name | Role | Phone | + [...] Mary Goldsmith | | | | | [address] | [place], [place] | | | | | Suite [facility] | [address] | | | | | [address], | [phone] | | | | | [facility] | | | | | | [place], [place] | | | | | | [address] | | | | | | [phone] | | | +--------+ + + + [...]
--- OUTSIDE RECORDS SUMMARY | ~2020-04-08 | XMS | Encounter Summary ---
Demographics + + + | Address | [address] | | | [place] [address] | + + + | Home Phone [...] Team Providers + +------+ + | Care Client Care Consultant Name | Role | Phone | [...] | | | | | [facility] | | | | | | Hospital Admitting | | | | | | Desk Located on the | | | | | | 9th floor | | | | | | [place], [place] | | | | | | [address] | | | +--------+ + + + [...]
--- OUTSIDE RECORDS SUMMARY | ~2020-04-08 | XMS | Encounter Summary ---
Demographics + + + | Address | [address] | | | [place] [address] | + + + | Home Phone | | + + + | Preferred Language | Unknown | + + + | Marital Status | Single | + + + | Hinduism Affiliation | CHR | + + + [...] Team Providers + +------+ + | Care Harmonic Analyst Name | Role | Phone | [...] | | | | | | [facility], | | | | | | Building | | | | | | Floor [place], [place] | | | | | | [address] | | | | | | [phone] | | | +--------+---------+ + + + [...]
--- OUTSIDE RECORDS SUMMARY | ~2020-04-08 | XMS | Encounter Summary ---
Demographics + + + | Address | [address] | | | [place] [address] | + + + | Home Phone | | + + + | Preferred Language | Unknown | + + + | Marital Status | Single | + + + | Sikh Affiliation | CHR | + + + | Race | White | + + + | Ethnic Group | Not or | + + + Author + + + | Author | [facility] | + + + | Organization | [facility] | + + + | Address | Unknown | + + + | Phone | Unavailable | + + + Support + + +---------+ + | Name | Relationship | Address | Phone | + + +---------+ + | Kaycee Ferraro | ECON | Unknown | | + + +---------+ + Care Team Providers + +------+ + | Care Transfer Operator Name | Role | Phone | [...] Description | +--------+---------+ + + + | 01/20/ | Surgery | 6A Intra Op [address] | Ryne Moreland, | RIGHT HIP | | 2018 | | [place] | [address] | [address]EMIARTHROPLASTY | | | | Rd [facility] | [facility] | | | | | Hospital Admitting | [place], [place] | | | | | Desk Located on the | [address] | | | | | 9th floor | [phone] | | | | | [place], [place] | | | | | | [address] | | | +--------+---------+ + + + [...] of this encounter Discharge Summaries Argelia Gomes AGACNJanet - 01/25/2018 10:37 AM PDTFormatting of this note might be differe nt from the original. [facility] DEPARTMENT OF ORTHOPAEDICS & REHABILITATION INPATIENT HOSPITAL DISCHARGE SUMMARY & INTERDISCIPLINARY INSTRUCTIONS Patient: Travis Floyd [facility]: [id number] Admission Date: 01/19/2018 Discharge Date: 01/25/2018 Attending Physician: Ryne Moreland MD PCP: Chery Carrion PA-C Service: [facility] Orthopaedics & Rehabilitation Diagnoses Principal Final Diagnosis: 1.Right hip femoral neck fracture. Additional Diagnoses: Patient Active Problem List: Wound infection Knee dislocation Closed right hip fracture (HCC) Closed fracture of right hip, initial encounter (HCC) Procedures 01/21/2018 Right Hip Hemiarthroplasty Brief Hospital [...] was felt appropriate for discharge to a long-term facility, and t he patient and/or family [...] suspe ct your wound is infected. Call [facility] Orthopedics first at [phone]. Activity Weight bear as tolerated on both [...] ks. Please see Chaz Jensen MD in [place] for follow up orthopaedic care. [address] [place] [address] office PCP: As needed for any medical [...] gabapentin Replaced by: gabapentin 400 mg Cap [facility] Orthopaedic Service Pain Policy At the 6-week [...] administration instructions. - Call Orthopedic Clinic at [phone] if any persistent, localized swelling that does [...] and ask for the orthopaedic surgery resident bonding supervisor. Additional Post-Op Instructions / What to Expect [...] a SNF "I certify that post-hospital inpatient long-term facility care is medically necessar y on [...] Condition on Discharge: Improved Discharging Patient To: Detention Facility, [facility] Date and Time of Discharge Summary Completion: 01/25/2018, 10:37 AM Discharging Provider: WILFRED Wiley Discharging Attending: Ryne Moreland MD Thank you for the opportunity to take care of Travis Floyd during this inpatient stay, it has been our pleasure. WILFRED Wiley [facility] Department of Orthopaedics & Rehabilitation [address] [place] [address] Mail Code: OP31 [facility] [id number] documented in t his encounter Medications at [...] as of this encounter Progress Notes Argelia Gomes, AGACNP - 01/25/2018 9:41 AM PDTFormatting of this note might be differe nt from the original. Orthopaedic Surgery Progress Note Date: 01/25/2018 Hospital Day: 6 Orthopaedic Attending: Ryne Moreland MD Diagnosis(es): 1. Right hip femoral neck fracture. Orthopaedic Procedure(s) & Date(s): 01/20/2018: Hip hemiarthroplasty for fracture Assessment & Plan: Travis Floyd is a 57 y.o.M with the orthopaedic diagnoses and procedur es listed above. Today's specific concerns include: Discharge to Detention Facility Follow up with [place] in 6[place] Care Protocol Items: 1. Activity: 1. Weight bearing: full weight bearing, right lower extremity 2. ROM: Posterior hip precautions 2. VTE prophylaxis: high risk, lovenox SC 40mg daily or by weight, sequential compression d evices, will discharge with ASA EC 81mg BID v3lyopc 3. Pain management: oral analgesia and IV [...] suspect your wound is infected. Call [facility] Orthopedics first at [phone]. Leave dressing in place until your follow [...] as needed. Please call Dr Willy Jensen [phone] [place] for future f ollow [...] fused, capillary refill < [address] [facility] Orthopaedic Trauma Surgery Pager [phone] signed by WILFRED Blair at 01/25/2018 9:49 [...] suspect your wound is infected. Call [facility] Orthopedics first at [phone]. Leave dressing in place until your follow [...] lateral, dorsal, 1st dorsal web space, p deo has neuropathy baseline with reduced sensation primarily bottom of foot Vascular: palpable dorsalis pedis, palpable posterior tibial, digits warm & well per fused, capillary refill < 2 seconds WILFRED Wiley Pager [phone] signed by WILFRED Blair at 01/24/2018 11:25 [...] suspect your wound is infected. Call [facility] Orthopedics first at [phone]. Leave dressing in place until your follow [...] follow up appointment in approximately 2 wee ks with ORTHO TRAUMA & FRACTURE, Subjective: Doing [...] lateral, dorsal, 1st dorsal web space, p lantacharlene has neuropathy baseline with reduced sensation primarily bottom of foot Vascular: palpable dorsalis pedis, palpable posterior tibial, digits warm & well per fused, capillary refill < 2 seconds Luis Hull MD Department of Orthopaedics p [phone] Luis Elaine MD - 01/22/2018 8:06 AM PDT Orthopaedic [...] suspect your wound is infected. Call [facility] Orthopedics first at [phone]. Leave dressing in place until your follow [...] loyda with ORTHO TRAUMA & FRACTURE, Subjective: "Doing [...] Luis Hull MD Department of Orthopaedics p [id number] Renay Krishnamurthynifer, AGACNP - 01/21/2018 5:40 PM PDTFormatting of this [...] suspect your wound is infected. Call [facility] Orthopedics first at [phone]. Leave dressing in place until your follow [...] follow up appointment in approximately 2 wee ks with ORTHO TRAUMA & FRACTURE, Subjective: "Doing [...] refill < 2 seconds WILFRED Wiley Pager [phone] Jake Decker PA-C - 01/21/2018 1:58 PM PDTBrief progress note - Bedside RN called to discuss CBGs and insulin regimen. Patient's home regimen of 36 units NPH TID and 60 units of Glargine BID was started post op eratively. track greaser CBG of 51 was initially thought to [...] Disposition: continue acute miranda care, continue PT JAKE LUCIANO PA-C [facility] [place] [address] Associated attestation - Bull Fuentes MD,MPH - 01/24/2018 11:08 AM PDTFormatting of thi s note might be different from the original. ATTENDING ADDENDUM: I personally interviewed and examined the patient today with the trauma team and the physic alyssa journeyman operator assistant. I participated in the development of and agree with the assessment and plan. Travis Floyd remains hospitalized for the the following injuries and problems: Patient Active Problem List Diagnosis Wound infection Knee dislocation Closed right hip fracture (HCC) Closed fracture of right hip, initial encounter ([facility]) 1. Start PT today 2. Multimodal pain control 3. NPH/Glargine for DM 4. Should have a relatively short hospital course. 5. Discussed transfer to [facility] with Dr. Moreland.Only additional medical needs inc lude glucose control. Tertiary exam unremarkable. Dr. Moreland accepted patient. Bull Fuentes MD, MPH block handler Trauma, Critical Care & Acute Care Surgery [facility] tang MD - 01/20/2018 4:30 PM PDT Orthopaedic Surgery Postoperative Check Patient: /Age: MRN: CSN: Date: Admission Date: Hospital Day: Orthopaedic Attending: Travis Floyd 1960 57 y.o. [id number] 01/20/2018 01/19/2018 1 Ryne Moreland MD Diagnosis(es): [...] are warm and pink. ERNESTO MCGUIRE MD [facility] Department of Orthopaedics & Rehabilitation [address] [place] [address] Mail Code: OP31 [facility] [address] inErnesto tang MD - 01/20/2018 2:52 PM PDT . [facility] Department of Orthopaedics & Rehabilitation BRIEF OPERATIVE NOTE Patient: /Age: MRN: CSN: Date: Admission Date: Hospital Day: Orthopaedic Attending: Travis Floyd 1960 57 y.o. [id number] 01/20/2018 01/19/2018 1 Ryne Moreland MD Attending Surgeon: Ryne Moreland MD Traveling Passenger Agent(s): 1. Ernesto Mcguire, R5 Preoperative Diagnosis(es): 1. Right comminuted and displaced [...] Discharge: Per primary team Ernesto Mcguire MD [facility] [place] Department of Orthopaedics & Rehabilitation [address] [place] [address] Mail Code: OP31 [facility] [address] [email or web address] Pager: [phone] Aaron Pierre MD - 01/20/2018 10:15 AM [...] oriented Head: Abrasion to right scalp HEENT: TARA BRICEÑO No: Ptosis Neck: Supple, No C-spine tenderness, [...] further plans pending surgery Can Suarez MD [facility] [address] [place] [address] Associated attestation - Bull Fuentes MD,MPH - 01/20/2018 3:22 PM PDTFormatting of thi s note might be different from the original. ATTENDING ADDENDUM: I personally interviewed and examined the patient today with the trauma team and the physic alyssa journeyman operator assistant. I participated in the development of and agree with the assessment and plan. Travis Floyd remains hospitalized for the the following injuries and problems: Patient Active Problem List Diagnosis Wound infection Knee dislocation Closed right hip fracture (HCC) Closed fracture of right hip, initial encounter ([facility]) To OR today with orthopedics. Will complete a tertiary exam post-op. Bull Fuentes MD, MPH Attending Surgeon Trauma, Critical Care & Acute Care Surgery [facility] [phone] documented in this encounter Plan of Treatment [...] | POC | | PDT | encounter ([facility]) | results section. | + +--------+ + + + | CAPILLARY BLOOD | Routin | 01/25/2018 | Closed fracture of | Results for this | | GLUCOSE (NO CHG), | e | 7:34 AM | right hip, initial | procedure are in the | | POC | | PDT | encounter ([facility]) | results section. | + +--------+ + + + | CAPILLARY BLOOD | Routin | 01/25/2018 | Closed fracture of | Results for this | | GLUCOSE (NO CHG), | e | 6:33 AM | right hip, initial | procedure are in the | | POC | | PDT | encounter ([facility]) | results section. | + +--------+ + + + | CAPILLARY BLOOD | Routin | 01/24/2018 | Closed fracture of | Results for this | | GLUCOSE (NO CHG), | e | 9:10 PM | right hip, initial | procedure are in the | | POC | | PDT | encounter ([facility]) | results section. | + +--------+ + + + | CAPILLARY BLOOD | Routin | 01/24/2018 | Closed fracture of | Results for this | | GLUCOSE (NO CHG), | e | 4:56 PM | right hip, initial | procedure are in the | | POC | | PDT | encounter ([facility]) | results section. | + +--------+ + + + | CAPILLARY BLOOD | Routin | 01/24/2018 | Closed fracture of | Results for this | | GLUCOSE (NO CHG), | e | 12:25 PM | right hip, initial | procedure are in the | | POC | | PDT | encounter ([facility]) | results section. | + +--------+ + [...] | POC | | PDT | encounter ([facility]) | results section. | + +--------+ + + + | CAPILLARY BLOOD | Routin | 01/23/2018 | Closed fracture of | Results for this | | GLUCOSE (NO CHG), | e | 8:36 PM | right hip, initial | procedure are in the | | POC | | PDT | encounter ([facility]) | results section. | + +--------+ + + + | CAPILLARY BLOOD | Routin | 01/23/2018 | Closed fracture of | Results for this | | GLUCOSE (NO CHG), | e | 4:42 PM | right hip, initial | procedure are in the | | POC | | PDT | encounter ([facility]) | results section. | + +--------+ + + + | CAPILLARY BLOOD | Routin | 01/23/2018 | Closed fracture of | Results for this | | GLUCOSE (NO CHG), | e | 12:33 PM | right hip, initial | procedure are in the | | POC | | PDT | encounter ([facility]) | results section. | + +--------+ + + + | CAPILLARY BLOOD | Routin | 01/23/2018 | Closed fracture of | Results for this | | GLUCOSE (NO CHG), | e | 7:26 AM | right hip, initial | procedure are in the | | POC | | PDT | encounter ([facility]) | results section. | + +--------+ + + + | CAPILLARY BLOOD | Routin | 01/23/2018 | Closed fracture of | Results for this | | GLUCOSE (NO CHG), | e | 4:53 AM | right hip, initial | procedure are in the | | POC | | PDT | encounter ([facility]) | results section. | + +--------+ + + + | CAPILLARY BLOOD | Routin | 01/22/2018 | Closed fracture of | Results for this | | GLUCOSE (NO CHG), | e | 9:14 PM | right hip, initial | procedure are in the | | POC | | PDT | encounter ([facility]) | results section. | + +--------+ + [...] | POC | | PDT | encounter ([facility]) | results section. | + +--------+ + + + | CAPILLARY BLOOD | Routin | 01/22/2018 | Closed fracture of | Results for this | | GLUCOSE (NO CHG), | e | 7:21 AM | right hip, initial | procedure are in the | | POC | | PDT | encounter ([facility]) | results section. | + +--------+ + + + | CAPILLARY BLOOD | Routin | 01/22/2018 | Closed fracture of | Results for this | | GLUCOSE (NO CHG), | e | 6:47 AM | right hip, initial | procedure are in the | | POC | | PDT | encounter ([facility]) | results section. | + +--------+ + + + | CAPILLARY BLOOD | Routin | 01/22/2018 | Closed fracture of | Results for this | | GLUCOSE (NO CHG), | e | 6:28 AM | right hip, initial | procedure are in the | | POC | | PDT | encounter ([facility]) | results section. | + +--------+ + [...] | POC | | PDT | encounter ([facility]) | results section. | + +--------+ + + + | CAPILLARY BLOOD | Routin | 01/21/2018 | Closed fracture of | Results for this | | GLUCOSE (NO CHG), | e | 5:41 PM | right hip, initial | procedure are in the | | POC | | PDT | encounter ([facility]) | results section. | + +--------+ + + + | CAPILLARY BLOOD | Routin | 01/21/2018 | Closed fracture of | Results for this | | GLUCOSE (NO CHG), | e | 1:51 PM | right hip, initial | procedure are in the | | POC | | PDT | encounter ([facility]) | results section. | + +--------+ + + + | CAPILLARY BLOOD | Routin | 01/21/2018 | Closed fracture of | Results for this | | GLUCOSE (NO CHG), | e | 12:44 PM | right hip, initial | procedure are in the | | POC | | PDT | encounter ([facility]) | results section. | + +--------+ + [...] | POC | | PDT | encounter ([facility]) | results section. | + +--------+ + [...] | POC | | PDT | encounter ([facility]) | results section. | + +--------+ + [...] | POC | | PDT | encounter ([facility]) | results section. | + +--------+ + [...] | POC | | PDT | encounter ([facility]) | results section. | + +--------+ + [...] | + +--------+ + + + | LORI NICE | Urgent | 01/19/2018 | | Results [...] [facility] | [address] | [place], [place] | | | CHARLES NEAL OF CARE | [address] | [address] | | | TESTS | | | [...] [facility] | [address] | [place], [place] | | | VAL POINT OF CARE | [address] | [address] | | | TESTS | | | [...] [facility] | [address] | [place], [place] | | | VAL POINT OF CARE | [address] | [address] | | | TESTS | | | [...] + + + | [facility] | [address] | [place], [place] | | | CHARLES NEAL OF CARE | [address] | [address] | | | TESTS | | | [...] [facility] | [address] | [place], [place] | | | VAL POINT OF CARE | [address] | [address] | | | TESTS | | | [...] + + + + | [facility] | [address] | [place], [place] | | | AVL POINT OF CARE | [address] | [address] | | | TESTS | | | [...] + + | [facility] | [address] | [place] [address] | | | SERVICES, CORE | PARK [...] | | | LABORATORY | | | [place] | | | SERVICES, | | | [...] Interpretive Information: <60 mL/min/1.73 sq m | TIMOTEO, CORE | | Chronic Kidney Disease <15 [...] | + + + + + | [facility] | [address] | [place] [address] | | | JOSELUIS MAHMOOD | JUSTUS [...] [facility] | [address] | [place], [place] | | | CHARLES NEAL OF CARE | [address] | [address] | | | TESTS | | | [...] [facility] | [address] | [place], [place] | | | VAL POINT OF CARE | [address] | [address] | | | TESTS | | | [...] [facility] | [address] | [place], [place] | | | CHARLES NEAL OF CARE | [address] | [address] | | | TESTS | | | [...] [facility] | [address] | [place], [place] | | | CHARLES NEAL OF CARE | [facility] | [address] | | | TESTS | | | [...] [facility] | [address] | [place], [place] | | | CHARLES NEAL OF CARE | [address] | [address] | | | TESTS | | | [...] [facility] | [address] | [place], [place] | | | CHARLES NEAL OF CARE | [address] | [address] | | | TESTS | | | [...] [facility] | [address] | [place], [place] | | | CHARLES NEAL OF CARE | [address] | [address] | | | TESTS | | | [...] (H) | 70 - 99 mg/dL | [facility] - | | | GLUCOSE, | | [...] [facility] | [address] | [place], [place] | | | CHARLES NEAL OF CARE | [address] | [address] | | | TESTS | | | [...] [facility] | [address] | [place], [place] | | | CHARLES NEAL OF CARE | [address] | [address] | | | TESTS | | | | + + + + + [facility] VENOUS DUPLEX LOWER EXTREMITY BILAT COMP (01/22/2018 [...] Note | + + | Service Account, [employer] In Interface - 01/22/2018 6:43 PM PDT [...] [facility] | [address] | [place] | | | CHARLES NEAL OF CARE | [address] | [address] | | | TESTS | | | | + + + + + CAPILLARY BLOOD GLUCOSE (NO CHG), POC (01/22/2018 7:21 AM PDT) + +-------+ + + + | Component | Value | Ref Range | Performed | Pathologist | | | | | At | Signature | + +-------+ + + + | BLOOD | 99 | 70 - 99 mg/dL | [facility] [...] [facility] | [address] | [place], [place] | | | CHARLES NEAL OF CARE | [address] | [address] | | | TESTS | | | [...] [facility] | [address] | [place], [place] | | | CHARLES NEAL OF CARE | [address] | [address] | | | TESTS | | | [...] [facility] | [address] | [place], [place] | | | CHARLES NEAL OF CARE | [address] | [address] | | | TESTS | | | [...] + + + + | [facility] | [address] | [place], [place] | | | CONNER POINT OF CARE | [address] | [address] | | | TESTS | | | [...] [facility] | [address] | [place] [address] | | | SERVICES, CORE | PARK [...] | | | LABORATORY | | | BAR[place]IAN | | | SERVICES, | | | [...] | + + + + + | [facility] | [address] [facility] | [place] [address] | | | SERVICES, CORE | JUSTUS [...] | + + + + + | [facility] | [address] [facility] | [place] [address] | | | SERVICES, CORE | JUSTUS [...] [facility] | [address] | [place], [place] | | | CHARLES NEAL OF CARE | [address] | [address] | | | TESTS | | | [...] [facility] | [address] | [place], [place] | | | VAL POINT OF CARE | [address] | [address] | | | TESTS | | | [...] [facility] | [address] | [place], [place] | | | CHARLES NEAL OF CARE | [address] | [address] | | | TESTS | | | [...] + + + + | [facility] | [address] | [place], [place] | | | CHARLES NEAL OF NISREEN | [address] | [address] | | | TESTS | | | [...] [facility] | [address] | [place], [place] | | | CHARLES NEAL OF CARE | [facility] | [address] | | | TESTS | | | | + + + + + CAPILLARY BLOOD GLUCOSE (NO CHG), POC (01/21/2018 7:50 AM PDT) + +-------+ + + + | Component | Value | Ref Range | Performed | Pathologist | | | | | At | Signature | + +-------+ + + + | BLOOD | 92 | 70 - 99 mg/dL | [facility] - | | | GLUCOSE, | | [...] [facility] | [address] | [place], [place] | | | VAL POINT OF CARE | [address] | [address] | | | TESTS | | | [...] [facility] | [address] | [place], [place] | | | CHARLES NEAL OF NISREEN | [address] | [address] | | | TESTS | | | [...] | | | LABORATORY | | | [place] | | | SERVICES, | | | [...] | + + + + + | [facility] | [address] | [place] [address] | | | SERVICES, CORE | JUSTUS [...] | + + + + + | [facility] | [address] | [place] [address] | | | SERVICES, CORE | PARK [...] | + + + + + | [facility] | [address] [facility] | [place] [address] | | | SERVICES, CORE | JUSTUS [...] [facility] | [address] | [place], [place] | | | CHARLES NEAL OF NISREEN | [address] | [address] | | | TESTS | | | [...] + + + + | [facility] | [address] [facility] [address] | [place], [place] | | | VAL POINT OF [facility] | [address] | [address] | | | TESTS | | | [...] CAPILLARY BLOOD GLUCOSE (NO CHG), POC (01/20/2018 3:09 PM PDT) + +---------+ [...] [facility] | [address] | [place], [place] | | | CHARLES NEAL OF CARE | [address] | [address] | | | TESTS | | | | + + + + + PROCEDURE NOTE (01/20/2018 3:06 PM PDT) + + + | Narrative | Performed At | + + + | Ryne Moreland MD 01/23/2018 8:53 AM Date: 01/20/2018 | | | Attending Surgeon: Ryne Moreland M.D. Traveling Passenger Agent(s): Ernesto | | | Chip Basurto Preoperative Diagnosis(es): Right hip femoral neck | | | fracture. Postoperative Diagnosis(es): Same Procedure Performed: | | | Hip hemiarthroplasty for fracture. Components Used: Biomet echo | | | high offset size [...] secured on the table with the "hip data control clerk". All bony prominences | | | were [...] the greater trochanter | | | using [id number] technique and tied down tightly. A drain [...] case. Ryne Moreland M.D. | | | Pepper Picker of Orthopaedics [facility] | | | [place] | | + + + CAPILLARY BLOOD [...] [facility] | [address] | [place], [place] | | | VAL POINT OF CARE | [address] | [address] | | | TESTS | | | [...] [facility] | [address] | [place], [place] | | | VAL POINT OF CARE | [address] | [address] | | | TESTS | | | | + + + + + 12 LEAD ECG (01/20/2018 7:54 AM PDT) + + + + + + | Component | Value | Ref Range | Performed | Pathologist | | | | | At | Signature | + + + + + + | VENTRICULAR | 62 | bpm | [facility] | | | RATE | | [...] + + + + + | [facility] | [address] | [place], [place] | | | CARDIOLOGY | [address] | [address] | | + + + + + [...] [facility] | [address] | [place] [address] | | | SERVICES, CORE | JUSTUS [...] | | | LABORATORY | | | BAR[place]IAN | | | SERVICES, | | | [...] | + + + + + | [facility] | [address] | [place] [address] | | | SERVICES, CORE | JUSTUS MEZA | | | + + + + [...] | + + + + + | [facility] | [address] | [place] [address] | | | SERVICES, CORE | [address] | | | + + + + + X-RAY PORTABLE CHEST 1 VIEW (01/20/2018 5:59 AM PDT) + + | Specimen | + + | | + + + + + | Narrative | Performed At | + + + | EXAM: OH CHEST 1 VIEW HISTORY: Right femur fracture, [...] Note | + + | Service Account, Master Equation Res In Interface - 01/20/2018 8:33 AM PDT EXAM: [place] CHEST 1 | | VIEW HISTORY: Right [...] [facility] | [address] | [place], [place] | | | CHARLES NEAL OF CARE | [address] | [address] | | | TESTS | | | [...] JEFFRIES | [address] | [place], [place] | | | VAL POINT OF CARE | [address] | [address] | | | TESTS | | | [...] [facility] | [address] | [place], [place] | | | CHAR[facility] NEAL OF CARE | [facility] | [address] | | | TESTS | | | [...] Account, Radiant Res In Interface - 01/20/2018 1:41 PM [...] Note | + + | Service Account, Master Equation Res In Interface - 01/19/2018 8:24 PM [...] Note | + + | Service Account, Master Equation Res In Interface - 01/19/2018 7:22 PM [...] | | | TC02 | | | [facility] | | | [...] M[facility] | [address] | [place], [place] | | | [place] NEAL OF [place] | [address] | [address] | | | TESTS | | | [...] [facility] | [address] | [place] [address] | | | SERVICES, CORE | PARK [...] SPECIMEN | Sample received with | | [facility] | | | COLLECTED, | adeq label/volume [...] | + + + + + | [facility] | [address] | [place] [address] | | | SERVICES, | [address] [...] | + + + + + | [facility] | [address] | [place] [address] | | | SERVICES, CORE | [address] | | | + + + + + ETHANOL (ALCOHOL), BLOOD (01/19/2018 6:16 PM PDT) + +-------+ + + + | Component | Value | Ref Range | Performed | Pathologist | | | | | At | Signature | + +-------+ + + + | ETHANOL | <10 | <10 mg/dL | [facility] | | | (ALCOHOL) | | | [...] + + | [facility] | [address] | [place] [address] | | | SERVICES, CORE | JUSTUS [...] | + + + + + | [facility] | [address] | [place] [address] | | | SERVICES, CORE | PARK [...] + + | [facility] | [address] | [place] [address] | | | SERVICES, | [address] [...] | + + + + + | [facility] | [address] | [place] [address] | | | SERVICES, | [address] [...] [facility] | [address] | [place] [address] | | | SERVICES, | [address] [...] [facility] | [address] | [place] [address] | | | SERVICES, CORE | JUSTUS [...] (H)Comment: Hgb A1C | <5.7 % | [facility] | | | A1C | Interpretive | [...] | [facility] | | considered for monitoring middle or intermediate school principal glycemic control in patients with: | LABORATORY [...] | + + + + + | [facility] | [address] | [place] [address] | | | SERVICES, SPECIAL | JUSTUS [...] | | | | | dose on Gabrielle 5/3/18 at 0900, Until | | AM PDT [...] | | | 01/20/18 at 1744, Until Wed01/25/18 | | | | | | | at 2023, muscle spasms | | | | | | + +-------+ +------+---+---+ + +---+ | | | + +---+ | dextrose 50 % in water IV 25 mL | | | 25 mL, intravenous, NEEDED, | | | Starting Wed01/21/18 at 1357, | | | Until Wed01/25/18 at 2023, CBG | | | less [...] Wed01/21/18 at | | | 1357, Until Wed01/25/18 at 2023, | | | CBG less [...] | + +---+ + +-------+ +-------+---+---+ | hydroCHLOROthiazide | Given [...] | | | 2251, Until Wed01/25/18 at 2024, | | | | | | | [...] + +---+---+ +---+---+ | | | +---+---+ documented in this encounter
--- OUTSIDE RECORDS SUMMARY | ~2020-04-08 | XMS | Encounter Summary ---
Demographics + + + | Address | [address] | | | [place] [address] | + + + | Home Phone | | + + + | Preferred Language | Unknown | + + + | Marital Status | Single | + + + | Episcopalian Affiliation | CHR | + + + [...] Providers + +------+ + | Care Cloth Winder Name | Role | Phone | + [...] 2018 | | BRITTNY Galicia | [address] [facility] | HEMIARTHROPLASTY | | | | Rd [facility] | [facility] | | | | | Hospital Admitting | [place], [place] | | | | | Desk Located on the | [address] | | | | | 9th floor | [phone] | | | | | [place], [place] | | | | | | [address] | | | +--------+---------+ + + + [...] might be differe nt from the original. FORMERLY [facility] DEPARTMENT OF ORTHOPAEDICS & REHABILITATION INPATIENT HOSPITAL DISCHARGE SUMMARY & INTERDISCIPLINARY INSTRUCTIONS Patient: Travis Floyd [facility]: [id number] Admission Date: 01/19/2018 Discharge Date: 01/25/2018 Attending Physician: Ryne Moreland MD PCP: Chery Carrion PA-C Service: [facility] Orthopaedics & Rehabilitation Diagnoses Principal Final Diagnosis: [...] was felt appropriate for discharge to a residential facility, and t he patient and/or family [...] suspe ct your wound is infected. Call [facility] Orthopedics first at [phone]. Activity Weight bear as tolerated on both [...] ks. Please see Chaz Jensen MD in [place] for follow up orthopaedic care. [address] [place] [address] office PCP: As needed for any medical [...] gabapentin Replaced by: gabapentin 400 mg Cap [facility] Orthopaedic Service Pain Policy At the 6-week [...] administration instructions. - Call Orthopedic Clinic at [phone] if any persistent, localized swelling that does [...] and ask for the orthopaedic surgery resident contract clerk. Additional Post-Op Instructions / What to Expect [...] a SNF "I certify that post-hospital inpatient residential facility care is medically necessar y on [...] Condition on Discharge: Improved Discharging Patient To: Prison Facility, [facility] Date and Time of Discharge Summary Completion: 01/25/2018, 10:37 AM Discharging Provider: WILFRED Wiley Discharging Attending: Ryne Moreland MD Thank you for the opportunity to take care of Travis Floyd during this inpatient stay, it has been our pleasure. WILFRED Wiley [facility] Department of Orthopaedics & Rehabilitation [address] [place] [address] Mail Code: OP31 [facility] [address] documented in t his encounter Medications at [...] as of this encounter Progress Notes Argelia Gmoes, AGACNP - 01/25/2018 9:41 AM PDTFormatting of [...] above. Today's specific concerns include: Discharge to Prison Facility Follow up with [place] in 6weeks Care Protocol Items: 1. Activity: 1. Weight bearing: full weight bearing, right lower extremity 2. ROM: Posterior hip precautions 2. VTE prophylaxis: high risk, lovenox SC 40mg daily or by weight, sequential compression d evices, will discharge with ASA EC 81mg BID [id number] 3. Pain management: oral analgesia and IV [...] suspect your wound is infected. Call [facility] Orthopedics first at [phone]. Leave dressing in place until your follow [...] as needed. Please call Dr Willy Jensen [address] [place] for future f ollow [...] capillary refill < 2 seconds Argelia Gomes [facility] Orthopaedic Trauma Surgery Pager [phone] signed by WILFRED Blair at 01/25/2018 9:49 [...] suspect your wound is infected. Call [facility] Orthopedics first at [phone]. Leave dressing in place until your follow [...] refill < 2 seconds WILFRED Wiley Pager [phone] signed by WILFRED Blair at 01/24/2018 11:25 [...] suspect your wound is infected. Call [facility] Orthopedics first at [phone]. Leave dressing in place until your follow [...] Luis Hull MD Department of Orthopaedics p [phone] Luis Elaine MD - 01/22/2018 8:06 AM [...] suspect your wound is infected. Call [facility] Orthopedics first at [phone]. Leave dressing in place until your follow [...] Luis Hull MD Department of Orthopaedics p [phone] Renay Krishnamurthynifer, AGACNP - 01/21/2018 5:40 PM [...] suspect your wound is infected. Call [facility] Orthopedics first at [phone]. Leave dressing in place until your follow [...] refill < 2 seconds WILFRED Wiley Pager [phone] Jake Decker PA-C - 01/21/2018 1:58 PM PDTBrief progress note - Bedside RN called to discuss CBGs and insulin regimen. Patient's home regimen of 36 units NPH TID and 60 units of Glargine BID was started post op eratively. global logistics manager CBG of 51 was initially thought to [...] miranda care, continue PT JAKE LUCIANO PA-C [facility] [place] [address] Associated attestation - Bull Fuentes MD,MPH - 01/24/2018 11:08 AM PDTFormatting of thi s note might be different from the original. ATTENDING ADDENDUM: I personally interviewed and examined the patient today with the trauma team and the physic alyssa speech language pathology assistant. I participated in the development of and agree with the assessment and plan. Travis Floyd remains hospitalized for the the following injuries and problems: Patient Active Problem List Diagnosis Wound infection Knee dislocation Closed right hip fracture (HCC) Closed fracture of right hip, initial encounter ([facility]) 1. Start PT today 2. Multimodal pain control 3. NPH/Glargine for DM 4. Should have a relatively short hospital course. 5. Discussed transfer to [facility] with Dr. Moreland.Only additional medical needs inc lude glucose control. Tertiary exam unremarkable. Dr. Moreland accepted patient. Bull Fuentes MD, MPH microfilm machine operator Trauma, Critical Care & Acute Care Surgery [facility] AllianceErnesto tang MD - 01/20/2018 4:30 PM PDT Orthopaedic Surgery Postoperative Check Patient: /Age: MRN: CSN: Date: Admission Date: Hospital Day: Orthopaedic Attending: Travis Floyd 1960 57 y.o. [id number] 01/20/2018 01/19/2018 1 Ryne Moreland MD Diagnosis(es): [...] are warm and pink. ERNESTO MCGUIRE MD [facility] Department of Orthopaedics & Rehabilitation [address] [place] [address] Mail Code: OP31 [facility] [address] inErnesto tang MD - 01/20/2018 2:[address] [facility] Department of Orthopaedics & Rehabilitation BRIEF OPERATIVE NOTE Patient: /Age: MRN: CSN: Date: Admission Date: Hospital Day: Orthopaedic Attending: Travis Floyd 1960 57 y.o. [id number] 01/20/2018 01/19/2018 1 Ryne Moreland MD Attending Surgeon: Ryne Moreland MD Dental Hygiene Instructor(s): 1. Ernesto Mcguire, R5 Preoperative Diagnosis(es): 1. [...] Discharge: Per primary team Ernesto Mcguire MD [facility] [place] Department of Orthopaedics & Rehabilitation [address] [place] [address] Mail Code: OP31 [facility] [address] [email or web address] Pager: [phone] Aaron Pierre MD - 01/20/2018 10:15 AM [...] further plans pending surgery Can Suarez MD [facility] [address] [place] [address] Associated attestation - Bull Fuentes MD,MPH - 01/20/2018 3:22 PM PDTFormatting of thi s note might be different from the original. ATTENDING ADDENDUM: I personally interviewed and examined the patient today with the trauma team and the physic alyssa speech language pathology assistant. I participated in the development of and agree with the assessment and plan. Travis Floyd remains hospitalized for the the following injuries and problems: Patient Active Problem List Diagnosis Wound infection Knee dislocation Closed right hip fracture (HCC) Closed fracture of right hip, initial encounter ([facility]) To OR today with orthopedics. Will complete a tertiary exam post-op. Bull Fuentes MD, MPH Attending Surgeon Trauma, Critical Care & Acute Care Surgery [facility] [phone] documented in this encounter Plan of Treatment [...] | POC | | PDT | encounter ([facility]) | results section. | + +--------+ + + + | CAPILLARY BLOOD | Routin | 01/25/2018 | Closed fracture of | Results for this | | GLUCOSE (NO CHG), | e | 7:34 AM | right hip, initial | procedure are in the | | POC | | PDT | encounter ([facility]) | results section. | + +--------+ + + + | CAPILLARY BLOOD | Routin | 01/25/2018 | Closed fracture of | Results for this | | GLUCOSE (NO CHG), | e | 6:33 AM | right hip, initial | procedure are in the | | POC | | PDT | encounter ([facility]) | results section. | + +--------+ + + + | CAPILLARY BLOOD | Routin | 01/24/2018 | Closed fracture of | Results for this | | GLUCOSE (NO CHG), | e | 9:10 PM | right hip, initial | procedure are in the | | POC | | PDT | encounter ([facility]) | results section. | + +--------+ + + + | CAPILLARY BLOOD | Routin | 01/24/2018 | Closed fracture of | Results for this | | GLUCOSE (NO CHG), | e | 4:56 PM | right hip, initial | procedure are in the | | POC | | PDT | encounter ([facility]) | results section. | + +--------+ + + + | CAPILLARY BLOOD | Routin | 01/24/2018 | Closed fracture of | Results for this | | GLUCOSE (NO CHG), | e | 12:25 PM | right hip, initial | procedure are in the | | POC | | PDT | encounter ([facility]) | results section. | + +--------+ + [...] | POC | | PDT | encounter ([facility]) | results section. | + +--------+ + + + | CAPILLARY BLOOD | Routin | 01/23/2018 | Closed fracture of | Results for this | | GLUCOSE (NO CHG), | e | 8:36 PM | right hip, initial | procedure are in the | | POC | | PDT | encounter ([facility]) | results section. | + +--------+ + + + | CAPILLARY BLOOD | Routin | 01/23/2018 | Closed fracture of | Results for this | | GLUCOSE (NO CHG), | e | 4:42 PM | right hip, initial | procedure are in the | | POC | | PDT | encounter ([facility]) | results section. | + +--------+ + + + | CAPILLARY BLOOD | Routin | 01/23/2018 | Closed fracture of | Results for this | | GLUCOSE (NO CHG), | e | 12:33 PM | right hip, initial | procedure are in the | | POC | | PDT | encounter ([facility]) | results section. | + +--------+ + + + | CAPILLARY BLOOD | Routin | 01/23/2018 | Closed fracture of | Results for this | | GLUCOSE (NO CHG), | e | 7:26 AM | right hip, initial | procedure are in the | | POC | | PDT | encounter ([facility]) | results section. | + +--------+ + + + | CAPILLARY BLOOD | Routin | 01/23/2018 | Closed fracture of | Results for this | | GLUCOSE (NO CHG), | e | 4:53 AM | right hip, initial | procedure are in the | | POC | | PDT | encounter ([facility]) | results section. | + +--------+ + + + | CAPILLARY BLOOD | Routin | 01/22/2018 | Closed fracture of | Results for this | | GLUCOSE (NO CHG), | e | 9:14 PM | right hip, initial | procedure are in the | | POC | | PDT | encounter ([facility]) | results section. | + +--------+ + [...] | POC | | PDT | encounter ([facility]) | results section. | + +--------+ + + + | CAPILLARY BLOOD | Routin | 01/22/2018 | Closed fracture of | Results for this | | GLUCOSE (NO CHG), | e | 7:21 AM | right hip, initial | procedure are in the | | POC | | PDT | encounter ([facility]) | results section. | + +--------+ + + + | CAPILLARY BLOOD | Routin | 01/22/2018 | Closed fracture of | Results for this | | GLUCOSE (NO CHG), | e | 6:47 AM | right hip, initial | procedure are in the | | POC | | PDT | encounter ([facility]) | results section. | + +--------+ + + + | CAPILLARY BLOOD | Routin | 01/22/2018 | Closed fracture of | Results for this | | GLUCOSE (NO CHG), | e | 6:28 AM | right hip, initial | procedure are in the | | POC | | PDT | encounter ([facility]) | results section. | + +--------+ + [...] | POC | | PDT | encounter ([facility]) | results section. | + +--------+ + + + | CAPILLARY BLOOD | Routin | 01/21/2018 | Closed fracture of | Results for this | | GLUCOSE (NO CHG), | e | 5:41 PM | right hip, initial | procedure are in the | | POC | | PDT | encounter ([facility]) | results section. | + +--------+ + + + | CAPILLARY BLOOD | Routin | 01/21/2018 | Closed fracture of | Results for this | | GLUCOSE (NO CHG), | e | 1:51 PM | right hip, initial | procedure are in the | | POC | | PDT | encounter ([facility]) | results section. | + +--------+ + + + | CAPILLARY BLOOD | Routin | 01/21/2018 | Closed fracture of | Results for this | | GLUCOSE (NO CHG), | e | 12:44 PM | right hip, initial | procedure are in the | | POC | | PDT | encounter ([facility]) | results section. | + +--------+ + [...] | POC | | PDT | encounter ([facility]) | results section. | + +--------+ + [...] | POC | | PDT | encounter ([facility]) | results section. | + +--------+ + [...] | POC | | PDT | encounter ([facility]) | results section. | + +--------+ + [...] | POC | | PDT | encounter ([facility]) | results section. | + +--------+ + [...] JEFFRIES | [address] | [place], [place] | | | CHARLES NEAL OF CARE | [address] | [address] | | | TESTS | | | [...] MARQUAM | [address] | [place], [place] | | | VAL POINT OF CARE | [address] | [address] | | | TESTS | | | [...] MARQUAM | [address] | [place], [place] | | | VAL POINT OF CARE | [address] | [address] | | | TESTS | | | [...] + + + | ADDY JEFFRIES | [address] | [place], [place] | | | CHARLES NEAL OF CARE | [address] | [address] | | | TESTS | | | [...] MARQUAM | [address] | [place], [place] | | | VAL POINT OF CARE | [address] | [address] | | | TESTS | | | [...] MERVIN | [address] | [place], [place] | | | VAL POINT OF CARE | [address] | [address] | | | TESTS | | | [...] LABORATORY | [address] | [place] [address] | | | SERVICES, CORE | PARK [...] | | | LABORATORY | | | [place] | | | SERVICES, | | | [...] | + + + + + | [facility] | [address] | [place] [address] | | | JOSELUIS MAHMOOD | JUSTUS [...] MARJEFFAM | [address] | [place], [place] | | | CHARLES NEAL OF CARE | [address] | [address] | | | TESTS | | | [...] JEFFRIES | [address] | [place], [place] | | | VAL POINT OF CARE | [address] | [address] | | | TESTS | | | [...] MARQUAM | [address] | [place], [place] | | | CHARLES NEAL OF CARE | [address] | [address] | | | TESTS | | | [...] MARQUAM | [address] | [place], [place] | | | CHARLES NEAL OF CARE | [facility] | [address] | | | TESTS | | | [...] JEFFRIES | [address] | [place], [place] | | | CHARLES NEAL OF CARE | [address] | [address] | | | TESTS | | | [...] MARQUAM | [address] | [place], [place] | | | CHARLES NEAL OF CARE | [address] | [address] | | | TESTS | | | [...] MARQUAM | [address] | [place], [place] | | | CHARLES NEAL OF CARE | [address] | [address] | | | TESTS | | | [...] (H) | 70 - 99 mg/dL | [facility] - | | | GLUCOSE, | | [...] JEFFRIES | [address] | [place], [place] | | | CHARLES NEAL OF CARE | [address] | [address] | | | TESTS | | | [...] MARQUAM | [address] | [place], [place] | | | CHARLES NEAL OF CARE | [address] | [address] | | | TESTS | | | | + + + + + [facility] VENOUS DUPLEX LOWER EXTREMITY BILAT COMP (01/22/2018 [...] Note | + + | Service Account, HighGround In Interface - 01/22/2018 6:43 PM PDT [...] THADDEUSAM | [address] | [place] | | | CHARLES NEAL OF CARE | [address] | [address] | | | TESTS | | | [...] MARQUAM | [address] | [place], [place] | | | CHARLES NEAL OF CARE | [address] | [address] | | | TESTS | | | [...] JEFFRIES | [address] | [place], [place] | | | CHARLES NEAL OF CARE | [address] | [address] | | | TESTS | | | [...] MARQUAM | [address] | [place], [place] | | | CHARLES NEAL OF CARE | [address] | [address] | | | TESTS | | | [...] MERVIN | [address] | [place], [place] | | | [place] POINT OF CARE | [address] | [address] | | | TESTS | | | [...] [facility] | [address] | [place] [address] | | | SERVICES, CORE | PARK [...] | | | LABORATORY | | | [place] | | | SERVICES, | | | [...] | + + + + + | [facility] | [address] [facility] | [place] [address] | | | SERVICES, CORE | JUSTUS [...] | + + + + + | [facility] | [address] [facility] [facility] | [place] [address] | | | SERVICES, CORE | JUSTUS [...] MARQUAM | [address] | [place], [place] | | | CHARLES NEAL OF CARE | [address] | [address] | | | TESTS | | | [...] MARJEFFAM | [address] | [place], [place] | | | VAL POINT OF CARE | [address] | [address] | | | TESTS | | | [...] JEFFRIES | [address] | [place], [place] | | | CHARLES NEAL OF CARE | [address] | [address] | | | TESTS | | | [...] MERVIN | [address] | [place], [place] | | | CHARLES NEAL OF NISREEN | [address] | [address] | | | TESTS | | | [...] MERVIN | [address] | [place], [place] | | | CHARLES NEAL OF CARE | [facility] | [address] | | | TESTS | | | [...] JEFFRIES | [address] | [place], [place] | | | VAL POINT OF CARE | [address] | [address] | | | TESTS | | | [...] JEFFRIES | [address] | [place], [place] | | | CHARLES NEAL OF NISREEN | [address] | [address] | | | TESTS | | | [...] | | | LABORATORY | | | [place]AN | | | SERVICES, | | | [...] | + + + + + | [facility] | [address] | [place] [address] | | | SERVICES, CORE | JUSTUS [...] | + + + + + | [facility] | [address] | [place] [address] | | | SERVICES, CORE | PARK [...] | + + + + + | [facility] | [address] [facility] | [place] [address] | | | SERVICES, CORE | JUSTUS [...] MARQUAM | [address] | [place], [place] | | | CHARLES NEAL OF NISREEN | [address] | [address] | | | TESTS | | | [...] + | [facility] | [address] [facility] [address] | [place], [place] | | | VAL POINT OF [facility] | [address] | [address] | | | TESTS | | | [...] MARQUAM | [address] | [place] | | | CHARLES NEAL OF CARE | [address] | [address] | | | TESTS | | | | + + + + + PROCEDURE NOTE (01/20/2018 3:06 PM PDT) + + + | Narrative | Performed At | + + + | Ryne Moreland MD 01/23/2018 8:53 AM Date: 01/20/2018 | | | Attending Surgeon: Ryne Moreland M.D. Dental Hygiene Instructor(s): Ernesto | | | Chip Basurto Preoperative [...] secured on the table with the "hip paring machine operator". All bony prominences | | | were [...] the greater trochanter | | | using yapltf-lo-qdxd technique and tied down tightly. A drain [...] case. Ryne Moreland M.D. | | | Gymnasium Teacher of Orthopaedics [facility] | | | [place] | | + + + CAPILLARY BLOOD [...] MARQUAM | [address] | [place], [place] | | | VAL POINT OF CARE | [address] | [address] | | | TESTS | | | [...] JEFFRIES | [address] | [place], [place] | | | VAL POINT OF CARE | [address] | [address] | | | TESTS | | | [...] [facility] | [address] | [place], [place] | | | CARDIOLOGY | [address] | [address] | | + + + + + [...] [facility] | [address] | [place] [address] | | | SERVICES, CORE | JUSTUS [...] | | | LABORATORY | | | [place] | | | SERVICES, | | | [...] | + + + + + | [facility] | [address] | [place] [address] | | | SERVICES, CORE | JUSTUS [...] | + + + + + | [facility] | [address] | [place] [address] | | | SERVICES, CORE | [address] | | | + + + + + X-RAY PORTABLE CHEST 1 VIEW (01/20/2018 5:59 AM PDT) + + | Specimen | + + | | + + + + + | Narrative | Performed At | + + + | EXAM: [facility] CHEST 1 VIEW HISTORY: Right femur fracture, [...] Note | + + | Service Account, Plum Res In Interface - 01/20/2018 8:33 AM PDT EXAM: [facility] CHEST 1 | | VIEW HISTORY: Right [...] MARQUAM | [address] | [place], [place] | | | CHARLES NEAL OF CARE | [address] | [address] | | | TESTS | | | [...] JEFFRIES | [address] | [place], [place] | | | VAL POINT OF CARE | [address] | [address] | | | TESTS | | | [...] MARQUAM | [address] | [place], [place] | | | CHARLES NEAL OF CARE | [facility] | [address] | | | TESTS | | | [...] Note | + + | Service Account, Plum Res In Interface - 01/19/2018 8:24 PM [...] Note | + + | Service Account, Plum Res In Interface - 01/19/2018 7:22 PM [...] [facility] | [address] | [place], [place] | | | CHARLES NEAL OF NISREEN | [address] | [address] | | | TESTS | | | [...] [facility] | [address] | [place] [address] | | | SERVICES, CORE | PARK [...] | + + + + + | [facility] | [address] | [place] [address] | | | SERVICES, | [address] [...] | + + + + + | [facility] | [address] | [place] [address] | | | SERVICES, CORE | PARK [...] [facility] | [address] | [place] [address] | | | SERVICES, CORE | JUSTUS [...] | + + + + + | [facility] | [address] | [place] [address] | | | SERVICES, CORE | PARK [...] LABORATORY | [address] | [place] [address] | | | SERVICES, | [address] [...] | + + + + + | [facility] | [address] | [place] [address] | | | SERVICES, | [address] [...] [facility] | [address] | [place] [address] | | | SERVICES, | [address] [...] [facility] | [address] | [place] [address] | | | SERVICES, CORE | JUSTUS [...] (H)Comment: Hgb A1C | <5.7 % | [facility] | | | A1C | Interpretive | [...] | [facility] | | considered for monitoring long term care phlebotomist glycemic control in patients with: | LABORATORY [...] | + + + + + | [facility] | [address] | [place] [address] | | | SERVICES, SPECIAL | JUSTUS [...]
--- OUTSIDE RECORDS SUMMARY | ~2020-04-08 | XMS | Encounter Summary ---
Demographics + + + | Address | [address] | | | [place] [address] | + + + | Home Phone | | + + + | Preferred Language | Unknown | + + + | Marital Status | Single | + + + | Mandaen Affiliation | 1013 | + + + | Race | Unknown | + + + | Ethnic Group | Unknown | + + + Author + + + | Author | [facility] | | | and [place] | + + + | Organization | [facility] | | | and [place] | + + + | Address | Unknown | + + + | Phone | Unavailable | + + + Support + + +---------+ + | Name | Relationship | Address | Phone | + + +---------+ + | Kayceesa Ferraro | ECON | Unknown | | + + +---------+ + Care Team Providers + +------+ + | Care Evp Name | Role | Phone | + +------+ + | Unknown, Doctor | PCP | | + +------+ + Reason for Visit +--------+--------+ + | Reason | Onset | Comments | | | Date | | +--------+--------+ + | Other | 11/01/ | | | | 2018 | | +--------+--------+ + Encounter Details +--------+ + + + + | Date | Type | Department | Care Team | Description | +--------+ + + + + | 11/01/ | Telephone | [facility] | Amelia, | Other | | 2018 | | MED [facility] | Catrina Blancas MD [address] | | | | [facility] [address] [place] | | | | | [place] | [place] [address] | | | | | [place] [address] | [phone] | | | | | [phone] | | | +--------+ + + + [...] this encounter Miscellaneous Notes Telephone Encounter - Elva Rizvi RN - 11/02/2017 9:23 AM PSTDr Amelia spok e with patient directly. 9:2 3 AM PSTTelephone Encounter - France Milian - 11/01/2017 1:[address] Anel blanco's call, doctor was with a patient. Please return call at [phone], thank you.E lectronically signed by France Milian at 11/01/2017 1:14 PM PSTTelephone Encounter - Argelia Doty RN - 11/01/2017 1:07 PM PSTReturned call to this number, no answer but name on voicemail was José Miguel Cerda. Electronically signed by Argelia Covington, BETTIE at 2017 1:08 PM PSTTelephone Encounter - Catrina Gaitan MD - 11/01/2017 12:57 PM PSTRe turned call. Person who answered did not speak Telugu. No message left. Please double check number. Electronically signed by: CATRINA GAITAN MD 11/01/2017 12:58 elephone Chacha wilson - Argelia Covington, RN - 11/01/2017 9:43 AM PSTSamuel calls stating Dr. Naomie ivan had wanted to talk to him, so he had returned call to [place] office, who gave him this number to call. Patient requesting return call from Dr. Gaitan when available. Electron ically signed by Argelia Covington RN at 11/01/2017 9:46 AM PSTdocumented in this encoun ter Plan of Treatment +--------+ + + + [...]
--- OUTSIDE RECORDS SUMMARY | ~2020-04-08 | XMS | Encounter Summary ---
Demographics + + + | Address | [address] | | | [place] [address] | + + + | Home Phone | | + + + | Preferred Language | Unknown | + + + | Marital Status | Single | + + + | Taoism Affiliation | CHR | + + + | Race | White | + + + | Ethnic Group | Not or | + + + Author + + + | Author | [facility] | + + + | Organization | [facility] | + + + | Address | Unknown | + + + | Phone | Unavailable | + + + Support + + +---------+ + | Name | Relationship | Address | Phone | + + +---------+ + | Kaycee Ferraro | ECON | Unknown | | + + +---------+ + Care Team Providers + +------+ + | Care Senior Treasury Analyst Name | Role | Phone | [...] Knee | Randall Hernandez MD | [address] | | | | | dislocation | [address] | Sourav [address]mith | | | | | Procedures | Abner Fong | [facility] for | | | | | CONSULT TO | [address] | Health and | | | | | [place] | [place], [place] | Healing, | | | | | [place] | [address] | [address], | | | | | KNEE | Phone: | Floor | | | | | JT+ANESTHESI | [phone] | [place] | | | | | A [place] REMOVE | Fax: | [address] | | | | | NURSE SPECIAL BONE | [phone] | Phone: | | | | | FIX DEV W | | [phone] | | | | | ANESTH | | Fax: | | | | | | | [phone] | +--------+--------+ + + + + Reason [...] | 2007 | Visit | [facility] at [facility] | [address] | (Primary Dx) | | | | for Health and | [address] | | | | | Healing [address] | [place], [place] | | | | | [facility] | [address] | | | | | Health and Healing, | [phone] | | | | | [facility] | | | | | | Floor [place], [place] | | | | | | [address] | | | | | | [phone] | | | +--------+---------+ + + + [...] will arrange a surgery day with the [facility] department of corrections. He will be [...]
--- OUTSIDE RECORDS SUMMARY | ~2020-04-08 | XMS | Encounter Summary ---
Demographics + + + | Address | [address] | | | [place] [address] | + + + | Home Phone [...] Team Providers + +------+ + | Care Rn Admissions Name | Role | Phone | + [...] | 2007 | on | [facility] at [place] | | | | | | for Health and | | | | | | Healing [address] | | | | | | [facility] for | | | | | | Health and Healing, | | | | | | Building | | | | | | Floor [place], [place] | | | | | | [address] | | | | | | [phone] | | | +--------+ + + + [...]
--- OUTSIDE RECORDS SUMMARY | ~2020-04-08 | XMS | Encounter Summary ---
Demographics + + + | Address | [address] | | | [place] [address] | + + + | Home Phone [...] + + + | Author | [facility] | + + + | Organization | [facility] | + + + | Address | Unknown | + + + | Phone | Unavailable | + + + Support + + +---------+ + | Name | Relationship | Address | Phone | + + +---------+ + | Kaycee Ferraro | ECON | Unknown | | + + +---------+ + Care Team Providers + +------+ + | Care Assistant Buyer Name | Role | Phone | [...] | 2007 | Visit | [facility] at [place] | [address] | (Primary Dx) | | | | [employer] and | [address] | | | | | Healing [address] | [facility] [place] | | | | | [facility] for | [address] | | | | | Health and Healing, | [phone] | | | | | [facility] | | | | | | Floor [place], [place] | | | | | | [address] | | | | | | [phone] | | | +--------+---------+ + + + [...]
[~2020-04-08 16:20] MED LIST changes: +ONDANSETRON ODT8 MG PO; +ULTRAM50 MG PO
--- OUTSIDE RECORDS SUMMARY | 2020-04-08 16:22 | XMS ---
PreManage Notification: TRAVIS FLOYD Security Hedis Specialist Events No recent Security Events currently on file CRITERIA MET - [facility]AN CARE PROVIDERS ZAINAB GARCIA Physician Chief Human Resources Officer 12/18/2019-Current PHONE: Unknown Amber Nix Mold Closer Helper/Warehouse Assistant 02/07/2020-Current PHONE: [phone] Gilberto has no Care Guidelines for this patient. Steve VISIT COUNT (12 MO.) 2 PENNY Cramer TOTAL 2 NOTE: Visits indicate total known visits. ED/UCC VISIT TRACKING (12 MO.) 04/08/2020 16:20 [facility] [place] TYPE: Emergency COMPLAINT: - LEFT FOOT PAIN NON INJ 12/17/2019 08:24 [facility] [place] TYPE: Emergency COMPLAINT: - FLU SYMPTOMS DIAGNOSES: - Type 2 diabetes mellitus without complications - Other mcfp (current) drug therapy - Acquired absence of other organs - Essential (primary) hypertension - Nausea with vomiting, unspecified - Noninfective gastroenteritis and colitis, unspecified - jail (current) use of aspirin INPATIENT VISIT TRACKING (12 MO.) No inpatient visits to display in this time frame [email or web address]
== END 2020-04-08 20:33 | disposition short-term general hospital (02) ==
LOC: ED 16:20
DX: E11.51 Type 2 diabetes mellitus with diabetic peripheral angiopathy without gangrene (principal); I73.9 Peripheral vascular disease, unspecified; L08.9 Local infection of the skin and subcutaneous tissue, unspecified; I10 Essential (primary) hypertension; F17.200 Nicotine dependence, unspecified, uncomplicated; Z79.899 Other long term (current) drug therapy; Z79.82 Long term (current) use of aspirin
CPT/HCPCS: 73630; 80053; 83605; 85025; 96361; 96365; 96366; 96367; 96375; 96376; 99285-25; J1170; J2405; J2543; J3370; J7030; J7060

== ENCOUNTER 2021-10-23 14:22 | Emergency (ER) | payer OTHER ==
[~2021-10-23] VITALS: Ht 175.3 cm; Wt 102.1 kg
--- OUTSIDE RECORDS SUMMARY | 2021-10-23 14:24 | XMS ---
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 E.D. VISIT COUNT (12 MO.) 1 PENNY Cramer TOTAL 1 NOTE: Visits indicate total known visits. ED/UCC VISIT TRACKING (12 MO.) 10/23/2021 14:22 P[facility]NY [facility] [place] TYPE: Emergency COMPLAINT: - DIFFICULTY BREATHING INPATIENT VISIT TRACKING (12 MO.) No inpatient visits to display in this time frame [email or web address]
[2021-10-23] MEDS ORDERED: CYCLOBENZAPRINE5 MG PO (15:14)
[2021-10-23] MEDS ORDERED: CLOPIDOGREL75 MG PO (15:15)
[2021-10-23] MEDS ORDERED: DICLOFENAC SOD100 G1 (15:15)
[2021-10-23] MEDS ORDERED: GLIPIZIDE10 MG PO (15:16)
[2021-10-23] MEDS ORDERED: HYDRALAZINE HCL50 MG PO (15:16)
[2021-10-23] MEDS ORDERED: LOSARTAN POTAS100 MG PO (15:17)
[2021-10-23] MEDS ORDERED: VENTOLIN HFA18 GM INH (15:17)
[2021-10-23] MEDS ORDERED: TAMSULOSIN HCL0.4 MG PO (15:17)
[2021-10-23] MEDS ORDERED: PREDNISONE20 MG PO (16:40)
[2021-10-23] MEDS ORDERED: PROVENTIL HFA6.7 GM INH (16:40)
--- NOTE | 2021-10-23 18:53 | EKG ---
[facility] [address] [facility] [place] [address] Signed Sinus rhythm with premature supraventricular complexes and with occasional premature ventricular complexes Left axis deviation T wave abnormality, consider anterolateral ischemia Prolonged QT Abnormal ECG When compared with ECG of 04-MAY-2018 04:47, Significant changes have occurred Confirmed by ANA KAM MD ([id number]) on 10/23/2021 6:53:19 PM Electronically Signed By: ANA KAM MD 10/23/21 1853 PATIENT NAME: TRAVIS FLOYD Electrocardiogram DATE OF : 58 PHYSICIAN: ANA KAM MD REPORT #: [id number] REPORT IS CONFIDENTIAL AND NOT TO BE RELEASED WITHOUT AUTHORIZATION
== END 2021-10-23 18:20 | disposition home or self-care (01) ==
LOC: ED 14:22
DX: J20.9 Acute bronchitis, unspecified (principal); J21.9 Acute bronchiolitis, unspecified; I10 Essential (primary) hypertension; E11.9 Type 2 diabetes mellitus without complications; F17.200 Nicotine dependence, unspecified, uncomplicated; Z79.899 Other long term (current) drug therapy; Z79.84 Long term (current) use of oral hypoglycemic drugs; Z79.51 Long term (current) use of inhaled steroids; Z79.82 Long term (current) use of aspirin; Z20.822 Contact with and (suspected) exposure to COVID-19
CPT/HCPCS: 71045; 93005; 93010; 94640; 94664; 96372; 99285-25; C9803; J1885; U0003

== ENCOUNTER 2021-10-31 14:10 | Emergency (ER) | payer OTHER ==
[~2021-10-31] VITALS: Ht 175.3 cm; Wt 113.8 kg
[~2021-10-31 14:10] MED LIST changes: +CLOPIDOGREL75 MG PO; +CYCLOBENZAPRINE5 MG PO; +DICLOFENAC SOD100 G1; +GLIPIZIDE10 MG PO; +HYDRALAZINE HCL50 MG PO; +LOSARTAN POTAS100 MG PO; +PREDNISONE20 MG PO; +PROVENTIL HFA6.7 GM INH; +TAMSULOSIN HCL0.4 MG PO; +VENTOLIN HFA18 GM INH
--- OUTSIDE RECORDS SUMMARY | 2021-10-31 14:14 | XMS ---
PreManage Notification: TRAVIS FLOYD Security Physicist [employer] Events No recent Security Events currently on file CRITERIA MET - [facility] - 2 Visits in 30 Days - [facility] CARE PROVIDERS ZAINAB GARCIA Physician Honing Machine Operator Production 12/18/2019-Current PHONE: Unknown Amber Nix Dermatology Specialist/Hvac Installation Technician 08/20/2021-Current PHONE: [phone] [facility] Current PHONE: Unknown Gilberto has no Care Guidelines for this patient. E.D. VISIT COUNT (12 MO.) 2 PENNY Cramer TOTAL 2 NOTE: Visits indicate total known visits. ED/UCC VISIT TRACKING (12 MO.) 10/31/2021 14:11 [place] TYPE: Emergency COMPLAINT: - CHEST PAIN,DIFF BREATHING 10/23/2021 14:22 [facility]NY [place] TYPE: Emergency COMPLAINT: - DIFFICULTY BREATHING DIAGNOSES: - Nicotine dependence, unspecified, uncomplicated - roasterman (current) use of oral hypoglycemic drugs - Other roasterman (current) drug therapy - Essential (primary) hypertension - Shortness of breath - detention (current) use of aspirin - Acute bronchiolitis, unspecified - Type 2 diabetes mellitus without complications - Acute bronchitis, unspecified - detention (current) use of inhaled steroids INPATIENT VISIT TRACKING (12 MO.) No inpatient visits to display in this time frame [email or web address]
--- NOTE | 2021-10-31 19:26 | EKG ---
[facility] [address] [facility] [place] [address] Signed Sinus tachycardia with premature atrial complexes Right atrial enlargement Left axis deviation Pulmonary disease pattern ST \T\ T wave abnormality, consider lateral ischemia Abnormal ECG When compared with ECG of 23-OCT-2021 15:12, premature ventricular complexes are no longer present T wave inversion no longer evident in Anterior leads Confirmed by VICENTA JAQUEZ DO ([id number]) on 10/31/2021 7:26:41 PM Electronically Signed By: VICENTA JAQUEZ DO 10/31/21 192 PATIENT NAME: TRAVIS FLOYD Electrocardiogram DATE OF : 58 PHYSICIAN: VICENTA JAQUEZ DO REPORT #: [id number] REPORT IS CONFIDENTIAL AND NOT TO BE RELEASED WITHOUT AUTHORIZATION
== END 2021-10-31 20:11 | disposition short-term general hospital (02) ==
LOC: ED 14:10
DX: I21.4 Non-ST elevation (NSTEMI) myocardial infarction (principal); I50.9 Heart failure, unspecified; D75.1 Secondary polycythemia; I11.0 Hypertensive heart disease with heart failure; E11.9 Type 2 diabetes mellitus without complications; F17.200 Nicotine dependence, unspecified, uncomplicated; Z20.822 Contact with and (suspected) exposure to COVID-19; Z79.51 Long term (current) use of inhaled steroids; Z79.899 Other long term (current) drug therapy; Z79.84 Long term (current) use of oral hypoglycemic drugs
CPT/HCPCS: 36415; 71045; 80053; 83690; 83880; 84484; 85025; 93005; 93010; 94640; 96374; 96375; 96376; 99285-25; C9803; J1644; J1940; J2270; J2405; U0003